=== PATIENT | female | born 1955 | race Caucasian/White ===

== ENCOUNTER → 2017-12-08 | Outpatient (CLI) | payer BC ==
[~2017-12-08] MED LIST: ALBU8.5H2 IH; AMOX-355 PO; ASP81TEC PO; BUDE6HFA IH; BUTA1CAP39 PO; C250T PO; CETI10TA20 PO; CHOL100011 PO; DIAZ5TAB49; EST45C; EST45C VG; FLAX340P PO; GENTAMICIN NASAL INH; HYDR-34; IPRA3AMP IH; LACT1CAP74 PO; LISI10TA PO; LISI10TA2 PO; LRT10T PO; LUTE10TA PO; LUTE20CA2 PO; MNTL10T PO; MOME13HF IH; MULT-608 PO; NAPR250T34; NF-PULMINH; NIA500ERT PO; NIACIN PO; PRAV20TA3 PO; PRAV80TA2 PO; PRD20T PO; TIOT18CA IH; VITA1TAB74 PO; [UNRECOGNIZED DRUG - OTHER] INH
--- NOTE | 2017-12-08 16:08 | Diagnostic Imaging Report ---
Indication: Lower respiratory infection PA and lateral chest Heart size and pulmonary vascular normal. Lungs are clear. There are no effusions or pneumothoraces. Impression: Negative chest Dictated by: Dictated on workstation # [id number]
== END ==
LOC: RAD 15:51
PROVIDERS: ATTEND Nurse Practitioner Family
DX: J22 Unspecified acute lower respiratory infection (principal)
CPT/HCPCS: 71046

== ENCOUNTER → 2018-05-02 | Outpatient (CLI) | payer BC ==
[~2018-05-02] MED LIST changes: -IPRA3AMP IH; +IPRA3AMP31 IH
--- NOTE | 2018-05-02 14:11 | Diagnostic Imaging Report ---
INDICATION: Routine screening. COMPARISON: 06/23/2016 and 05/20/2014. TECHNIQUE: 2D and 3D bilateral screening mammography was performed with CAD. FINDINGS: Scattered fibroglandular densities are identified bilaterally. The parenchymal pattern is stable. Benign calcifications are noted bilaterally. No mass or malignant appearing microcalcifications are seen. The axillae are unremarkable. IMPRESSION: No mammographic features suspicious for malignancy are identified. ACR BI-RADS Category 2: Benign findings. Result letter will be mailed to the patient. Note: At least 10% of breast cancer is not imaged by mammography. Dictated by: Dictated on workstation # [id number]
== END ==
LOC: RAD 10:07
PROVIDERS: ATTEND Nurse Practitioner Family
DX: Z12.31 Encounter for screening mammogram for malignant neoplasm of breast (principal)
CPT/HCPCS: 77067

== ENCOUNTER 2019-03-30 09:45 | Emergency (ER) | payer MEDICARE, BC ==
[~2019-03-30] VITALS: Ht 160 cm; Wt 75.8 kg
--- OUTSIDE RECORDS SUMMARY | 2019-03-30 09:57 | XMS REPORT | CCD ---
Author Author Leisa Kirkpatrick MD, [facility] Address [address] [place] [address] Phone Care Team Providers Care Technical System Analyst Name Role Phone PP Unavailable CCM Unavailable Summary Purpose Interface Exchange Insurance Providers Payer name Policy type / Coverage type Covered constitution party ID Effective Begin Date Effective End Date [facility] [id number] Unknown Family history Father Diagnosis Age At Onset Heart Attack Unknown genetic disease Unknown Skin cancer Unknown Hypertension Unknown Mother Diagnosis Age At Onset Stroke Unknown Daughter Diagnosis Age At Onset Asthma Unknown Arthritis Unknown Social History Social History Element Codes Description Effective Dates Marital status Unknown Lev 10/10/2017 Number of children Unknown 2 06/17/[address]: 078850421 Never smoker 06/17/2016 Alcohol history Unknown occasionally drinks alcohol 06/17/2016 Allergies, Adverse Reactions, Alerts Substance Reaction Codes Entered Date Inactivated Date Status ceclor RxNorm: 2176 06/17/2016 No Inactive Date Active CODEINE RxNorm: 2670 06/17/2016 No Inactive Date Active Past Medical History Illness Codes Condition Status Onset Date Resolved Date Cough ICD-9: 786.2 ICD-10: R05 Active 09/22/2016 Unknown Other acute sinusitis ICD- 9: 461.8 ICD-10: J01.80 Active 07/07/2016 Unknown Acute bronchitis due to other specified organisms ICD-9: 466.0 ICD-10: J20.8 Active 12/08/2017 Unknown Moderate persistent asthma with (acute) exacerbation ICD-9: 493.12 ICD-10: J45.41 Active 03/03/2017 Unknown Other allergic rhinitis ICD-9: 477.8 ICD-10: J30.89 Active 09/22/2016 Unknown Other chronic sinusitis ICD-9: 473.8 ICD-10: J32.8 Active 02/08/2019 Unknown Varicose veins of left lower extremity with pain ICD-9: 454.8 ICD-10: I83.812 Active 02/08/2019 Unknown Diarrhea, unspecified ICD- 9: 787.91 ICD-10: R19.7 Active 02/05/2019 Unknown Left lower quadrant pain ICD-9: 789.04 ICD-10: R10.32 Active 02/05/2019 Unknown Localized edema ICD-9: 782.3 ICD-10: R60.0 Active 01/23/2019 Unknown Tinea unguium ICD-9: 110.1 ICD-10: B35.1 Active 01/23/2019 Unknown Essential (primary) hypertension ICD-9: 401.1 ICD-10: I10 Active 04/09/2018 Unknown Mixed hyperlipidemia ICD- 9: 272.2 ICD-10: E78.2 Active 01/09/2019 Unknown Diverticulitis of large intestine without perforation or abscess with bleeding ICD-9: 562.13 ICD-10: K57.33 Active 05/04/2017 Unknown Other fatigue ICD-9: 780.79 ICD-10: R53.83 Active 04/09/2018 Unknown Zoster without complications ICD-9: 053.9 ICD-10: B02.9 Active 05/07/2018 Unknown Fever, unspecified ICD- 9: 780.60 ICD-10: R50.9 Active 04/20/2018 Unknown Cellulitis of left toe ICD-9: 681.10 ICD-10: L03.032 Active 04/09/2018 Unknown Encounter for screening mammogram for malignant neoplasm of breast ICD-9: V76.12 ICD-10: Z12.31 Active 04/09/2018 Unknown Mixed hyperlipidemia ICD- 9: 272.4 ICD-10: E78.2 Active 06/16/2016 Unknown Paresthesia of skin ICD- 9: 782.0 ICD-10: R20.2 Active 04/09/2018 Unknown Vitamin D deficiency, unspecified ICD-9: 268.9 ICD-10: E55.9 Active 04/09/2018 Unknown Gastro-esophageal reflux disease without esophagitis ICD-9: 530.81 ICD-10: K21.9 Active 12/05/2016 Unknown Hyperlipidemia Unknown Active 09/20/2017 Unknown Acute laryngopharyngitis ICD-9: 465.0 ICD-10: J06.0 Active 02/09/2017 Unknown Asthma Unknown Active 02/13/2017 Unknown Moderate persistent asthma, uncomplicated ICD-9: 493.90 ICD-10: J45.40 Active 09/22/2016 Unknown Other mucopurulent conjunctivitis, left eye ICD-9: 372.03 ICD-10: H10.022 Active 02/13/2017 Unknown Encounter for gynecological examination (general) (routine) without abnormal findings ICD-9: V72.31 ICD-10: Z01.419 Active 06/16/2016 Unknown Essential (primary) hypertension ICD-9: 401.9 ICD-10: I10 Active 06/16/2016 Unknown Problems Condition Codes Effective Dates Condition Status Cough ICD-9: 786.2 ICD-10: R05 09/22/2016 Active Other acute sinusitis ICD- 9: 461.8 ICD-10: J01.80 07/07/2016 Active Acute bronchitis due to other specified organisms ICD-9: 466.0 ICD-10: J20.8 12/08/2017 Active Moderate persistent asthma with (acute) exacerbation ICD-9: 493.12 ICD-10: J45.41 03/03/2017 Active Other allergic rhinitis ICD-9: 477.8 ICD-10: J30.89 09/22/2016 Active Other chronic sinusitis ICD-9: 473.8 ICD-10: J32.8 02/08/2019 Active Varicose veins of left lower extremity with pain ICD-9: 454.8 ICD-10: I83.812 02/08/2019 Active Diarrhea, unspecified ICD- 9: 787.91 ICD-10: R19.7 02/05/2019 Active Left lower quadrant pain ICD-9: 789.04 ICD-10: R10.32 02/05/2019 Active Localized edema ICD-9: 782.3 ICD-10: R60.0 01/23/2019 Active Tinea unguium ICD-9: 110.1 ICD-10: B35.1 01/23/2019 Active Essential (primary) hypertension ICD-9: 401.1 ICD-10: I10 04/09/2018 Active Mixed hyperlipidemia ICD- 9: 272.2 ICD-10: E78.2 01/09/2019 Active Diverticulitis of large intestine without perforation or abscess with bleeding ICD-9: 562.13 ICD-10: K57.33 05/04/2017 Active Other fatigue ICD-9: 780.79 ICD-10: R53.83 04/09/2018 Active Zoster without complications ICD-9: 053.9 ICD-10: B02.9 05/07/2018 Active Fever, unspecified ICD- 9: 780.60 ICD-10: R50.9 04/20/2018 Active Cellulitis of left toe ICD-9: 681.10 ICD-10: L03.032 04/09/2018 Active Encounter for screening mammogram for malignant neoplasm of breast ICD-9: V76.12 ICD-10: Z12.31 04/09/2018 Active Mixed hyperlipidemia ICD- 9: 272.4 ICD-10: E78.2 06/16/2016 Active Paresthesia of skin ICD- 9: 782.0 ICD-10: R20.2 04/09/2018 Active Vitamin D deficiency, unspecified ICD-9: 268.9 ICD-10: E55.9 04/09/2018 Active Gastro-esophageal reflux disease without esophagitis ICD-9: 530.81 ICD-10: K21.9 12/05/2016 Active Hyperlipidemia Unknown 09/20/2017 Active Acute laryngopharyngitis ICD-9: 465.0 ICD-10: J06.0 02/09/2017 Active Asthma Unknown 02/13/2017 Active Moderate persistent asthma, uncomplicated ICD-9: 493.90 ICD-10: J45.40 09/22/2016 Active Other mucopurulent conjunctivitis, left eye ICD-9: 372.03 ICD-10: H10.022 02/13/2017 Active Encounter for gynecological examination (general) (routine) without abnormal findings ICD-9: V72.31 ICD-10: Z01.419 06/16/2016 Active Essential (primary) hypertension ICD-9: 401.9 ICD-10: I10 06/16/2016 Active Medications Medication Codes Instructions Start Date Stop Date Status Fill Instructions doxycycline hyclate 100 mg tablet RxNorm: 0080254 1 Tablet(s) PO BID 03/21/2019 03/27/2019 Active prednisone 10 mg tablets in a dose pack RxNorm: 929038 1 Tablet(s) PO UD 03/21/2019 03/26/2019 Active albuterol sulfate 2.5 mg/3 mL (0.083 %) solution for nebulization RxNorm: 774616 USE 1 VIAL IN NEBULIZER EVERY 4 HOURS NEEDED 5 03/07/2019 03/16/2019 Inactive prednisone 10 mg tablet RxNorm: 326019 Tablet(s) PO 02/25/2019 03/20/2019 Inactive 40,40,40,20,20,20,10,10,10 Tessalon Perles 100 mg capsule RxNorm: 139818 2 Capsule(s) PO TID as needed cough 02/25/2019 03/01/2019 Inactive Bactrim DS 800 mg-160 mg tablet RxNorm: 504662 1 Tablet(s) PO BID 02/08/2019 02/17/2019 Inactive Flagyl 500 mg tablet RxNorm: 844122 1 Tablet(s) PO TID 02/05/2019 02/14/2019 Inactive clotrimazole 1 % topical cream RxNorm: 829002 1 Application TOP BID 01/23/2019 No Stop Date Active Tamiflu 75 mg capsule RxNorm: 812687 1 Capsule(s) PO daily 01/11/2019 01/20/2019 Inactive Tamiflu 75 mg capsule RxNorm: 795065 1 Capsule(s) PO daily 01/11/2019 01/10/2019 Inactive losartan 25 mg tablet RxNorm: 793340 1 Tablet(s) PO daily 12/24/2018 04/22/2019 Active losartan 25 mg tablet RxNorm: 233009 1 Tablet(s) PO daily 12/24/2018 12/23/2018 Inactive Zithromax Z-Maykel 250 mg tablet RxNorm: 229780 1 Tablet(s) PO UD 10/05/2018 10/09/2018 Inactive prednisone 20 mg tablet RxNorm: 061710 2 Tablet(s) PO daily 10/05/2018 10/09/2018 Inactive Zantac 150 mg tablet RxNorm: 292809 TAKE 1 TABLET BY MOUTH TWICE DAILY 08/22/2018 08/16/2019 Active Generic For:*ZANTAC 150 MG TABLET 08/22/2018 10:42:54 AM lisinopril 10 mg tablet RxNorm: 517686 TAKE 1 TABLET BY MOUTH DAILY 08/22/2018 12/24/2018 Inactive Generic For:ZESTRIL 10 MG TABLET 08/22/2018 10:43:05 AM prednisone 10 mg tablet RxNorm: 954170 Tablet(s) PO 07/24/2018 02/24/2019 Inactive 40,40,30,30,20,20,10,10,5mg every other day x 2 doses Zithromax Z-Maykel 250 mg tablet RxNorm: 279068 1 Tablet(s) PO UD 07/24/2018 10/04/2018 Inactive Protonix 20 mg tablet,delayed release RxNorm: 171578 1 Tablet(s) PO BID 05/23/2018 11/18/2018 Inactive acyclovir 400 mg tablet RxNorm: 361217 2 Tablet(s) PO QID 05/07/2018 05/16/2018 Inactive doxycycline hyclate 100 mg capsule RxNorm: 6480604 1 Capsule(s) PO BID 04/20/2018 04/29/2018 Inactive Bactrim DS 800 mg-160 mg tablet RxNorm: 982116 1 Tablet(s) PO BID 04/16/2018 04/18/2018 Inactive Bactrim DS 800 mg-160 mg tablet RxNorm: 064449 1 Tablet(s) PO BID 04/09/2018 04/15/2018 Inactive lisinopril 10 mg tablet RxNorm: 911935 TAKE 1 TABLET BY MOUTH DAILY 02/21/2018 08/19/2018 Inactive Generic For:ZESTRIL 10 MG TABLET 02/21/2018 11:39:12 AM prednisone 10 mg tablet RxNorm: 544753 Tablet(s) PO 60mg x 2 days, then 40mg x 2 days, then 20mg x 2 days, the 10mg x 2 days, then 5mg every other day x 2 doses 12/08/2017 03/20/2019 Inactive disp qty sufficient doxycycline hyclate 100 mg capsule RxNorm: 4790946 1 Capsule(s) PO BID 12/08/2017 12/17/2017 Inactive albuterol sulfate 2.5 mg/3 mL (0.083 %) solution for nebulization RxNorm: 377676 3 Milliliter(s) INH Q4-6H 12/06/2017 03/06/2019 Inactive Zithromax Z-Maykel 250 mg tablet RxNorm: 633735 1 Tablet(s) PO UD 12/01/2017 04/15/2018 Inactive prednisone 20 mg tablet RxNorm: 932766 Tablet(s) PO 40mg x 2 days, then 20mg x 2 days, then 10mg x 2 days 12/01/2017 03/20/2019 Inactive levocetirizine 5 mg tablet RxNorm: 499664 1 Tablet(s) PO daily 11/13/2017 05/11/2018 Inactive Protonix 20 mg tablet,delayed release RxNorm: 656583 1 Tablet(s) PO BID 11/13/2017 05/11/2018 Inactive Protonix 20 mg tablet,delayed release RxNorm: 633150 1 Tablet(s) PO BID 10/10/2017 11/08/2017 Inactive Tessalon Perles 100 mg capsule RxNorm: 577035 1-2 Capsule(s) PO TID as needed 10/10/2017 10/14/2017 Inactive prednisone 20 mg tablet RxNorm: 832692 Tablet(s) PO 40mg x 2 days, then 20mg x 2 days, then 10mg x 2 days 09/20/2017 11/30/2017 Inactive doxycycline hyclate 100 mg capsule RxNorm: 6796626 1 Capsule(s) PO BID 09/20/2017 09/26/2017 Inactive Zithromax Z-Maykel 250 mg tablet RxNorm: 541842 1 Tablet(s) PO UD 09/12/2017 10/09/2017 Inactive albuterol sulfate 2.5 mg/3 mL (0.083 %) solution for nebulization RxNorm: 081471 3 Milliliter(s) INH Q4-6H 09/12/2017 12/05/2017 Inactive prednisone 20 mg tablet RxNorm: 895300 2 Tablet(s) PO daily 09/12/2017 09/16/2017 Inactive lisinopril 10 mg tablet RxNorm: 821328 1 Tablet(s) PO daily 08/28/2017 02/20/2018 Inactive Zantac 150 mg tablet RxNorm: 926632 1 Tablet(s) PO BID 08/28/2017 08/21/2018 Inactive Cipro 500 mg tablet RxNorm: 587787 1 Tablet(s) PO BID 08/18/2017 08/26/2017 Inactive metronidazole 500 mg tablet RxNorm: 861797 1 Tablet(s) PO TID 08/18/2017 08/26/2017 Inactive prednisone 20 mg tablet RxNorm: 939764 2 Tablet(s) PO BID 06/12/2017 06/16/2017 Inactive Cipro 500 mg tablet RxNorm: 688107 1 Tablet(s) PO BID 05/04/2017 05/13/2017 Inactive metronidazole 500 mg tablet RxNorm: 860597 1 Tablet(s) PO TID 05/04/2017 05/13/2017 Inactive Zantac 150 mg tablet RxNorm: 766319 1 Tablet(s) PO BID 04/27/2017 08/24/2017 Inactive prednisone 20 mg tablet RxNorm: 521455 2 Tablet(s) PO BID start if getting worse 04/21/2017 04/25/2017 Inactive levocetirizine 5 mg tablet RxNorm: 276026 1 Tablet(s) PO daily 04/21/2017 05/20/2017 Inactive prednisone 20 mg tablet RxNorm: 037166 1 Tablet(s) PO BID Start with 1 pill daily and see how effective it is - if still not effective increase to twice a day as discussed 03/03/2017 03/07/2017 Inactive lisinopril 10 mg tablet RxNorm: 129333 1 Tablet(s) PO daily 03/01/2017 08/27/2017 Inactive ciprofloxacin 0.3 % eye drops RxNorm: 722650 2 Drop(s) OPH QID 02/13/2017 02/17/2017 Inactive Zithromax 250 mg tablet RxNorm: 302207 1 Tablet(s) PO daily 02/13/2017 02/15/2017 Inactive Zithromax Z-Maykel 250 mg tablet RxNorm: 414644 1 Tablet(s) PO UD 02/09/2017 02/08/2017 Inactive Zithromax Z-Maykel 250 mg tablet RxNorm: 516869 1 Tablet(s) PO UD 02/09/2017 09/11/2017 Inactive Premarin 0.625 mg/gram vaginal cream RxNorm: 814647 1 Application VAG BIW 12/30/2016 No Stop Date Active Zantac 150 mg tablet RxNorm: 690589 1 Tablet(s) PO BID 12/05/2016 04/03/2017 Inactive prednisone 20 mg tablet RxNorm: 347106 2 Tablet(s) PO daily 12/05/2016 12/09/2016 Inactive Zithromax Z-Maykel 250 mg tablet RxNorm: 858934 Tablet(s) PO UD 12/05/2016 02/08/2017 Inactive lisinopril 10 mg tablet RxNorm: 659115 1 Tablet(s) PO daily 10/31/2016 02/27/2017 Inactive Tessalon Perles 100 mg capsule RxNorm: 191886 2 Capsule(s) PO TID as needed dyspnea 09/23/2016 09/27/2016 Inactive prednisone 20 mg tablet RxNorm: 043743 2 Tablet(s) PO daily 09/23/2016 09/27/2016 Inactive Qvar 80 mcg/actuation Metered Aerosol oral inhaler RxNorm: 477862 1 INH BID started by her bilingual customer service specialist 08/02/2016 09/12/2016 Inactive Zithromax Z-Maykel 250 mg tablet RxNorm: 742335 Tablet(s) PO UD 07/08/2016 12/04/2016 Inactive Tessalon Perles 100 mg capsule RxNorm: 951436 2 Capsule(s) PO TID as needed dyspnea 07/08/2016 07/12/2016 Inactive prednisone 20 mg tablet RxNorm: 808002 1 Tablet(s) PO UD 07/08/2016 09/22/2016 Inactive Premarin 0.625 mg/gram vaginal cream RxNorm: 705394 1 Application VAG BIW 06/21/2016 12/29/2016 Inactive Dulera 200 mcg-5 mcg/actuation HFA aerosol inhaler RxNorm: 9891216 2 INH Q2H 06/17/2016 No Stop Date Active lisinopril 10 mg tablet RxNorm: 924402 1 Tablet(s) PO daily 06/17/2016 10/14/2016 Inactive olopatadine 0.1 % eye drops RxNorm: 4649270 Drop(s) OPH PRN No Start Date Active ProAir HFA 90 mcg/actuation aerosol inhaler RxNorm: 628388 2 Puff(s) INH PRN No Start Date Active Zyrtec 10 mg capsule RxNorm: 8729112 1 Capsule(s) PO daily No Start Date Active lutein 20 mg capsule RxNorm: 533049 1 Capsule(s) PO daily No Start Date Active [place] Oil 1,000 mg capsule RxNorm: 1 Capsule(s) PO daily No Start Date Active montelukast 10 mg tablet RxNorm: 498402 1 Tablet(s) PO daily No Start Date Active Vitamin D3 1,000 unit capsule RxNorm: 626148 Capsule(s) PO No Start Date Active B12 sublingual RxNorm: 95851 sublingual No Start Date Active pravastatin 20 mg tablet RxNorm: 803440 1 Tablet(s) PO daily No Start Date Active zinc picolinate 50 mg tablet RxNorm: 1 Tablet(s) PO daily No Start Date Active chromium picolinate 200 mcg capsule RxNorm: 028083 1 Capsule(s) PO daily No Start Date Active magnesium RxNorm: 1 PO BID No Start Date Active premarin 0.5% Vaginal cream RxNorm: 1 VAG daily No Start Date Active Xolair 150 mg subcutaneous solution RxNorm: 7770049 1 SQ monthly No Start Date Active folate #7-pc dha-pe [id number]-multivitamin #46 oral RxNorm: oral No Start Date Active Dulera 200 mcg-5 mcg/actuation HFA aerosol inhaler RxNorm: 7328655 2 INH Q4H No Start Date 06/16/2016 Inactive lisinopril 10 mg tablet RxNorm: 910016 1 Tablet(s) PO daily No Start Date 06/16/2016 Inactive prednisone RxNorm: 8640 miscellaneous No Start Date 03/20/2019 Inactive Medication Administered No Medication Administered data Immunizations Vaccine Codes Date Status Influenza CVX: 141 08/20/2018 completed Assessments Condition Codes Effective Dates Other acute sinusitis ICD-10: J01.80 ICD-9: 461.8 03/21/2019 Cough ICD-10: R05 ICD-9: 786.2 03/21/2019 Acute bronchitis due to other specified organisms ICD-10: J20.8 ICD-9: 466.0 02/25/2019 Moderate persistent asthma with (acute) exacerbation ICD-10: J45.41 ICD-9: 493.12 02/25/2019 Other allergic rhinitis ICD-10: J30.89 ICD-9: 477.8 02/08/2019 Other chronic sinusitis ICD-10: J32.8 ICD-9: 473.8 02/08/2019 Varicose veins of left lower extremity with pain ICD-10: I83.812 ICD-9: 454.8 02/08/2019 Diarrhea, unspecified ICD-10: R19.7 ICD-9: 787.91 02/05/2019 Left lower quadrant pain ICD-10: R10.32 ICD-9: 789.04 02/05/2019 Tinea unguium ICD-10: B35.1 ICD-9: 110.1 01/23/2019 Localized edema ICD-10: R60.0 ICD-9: 782.3 01/23/2019 Essential (primary) hypertension ICD-10: I10 ICD-9: 401.1 01/09/2019 Mixed hyperlipidemia ICD-10: E78.2 ICD-9: 272.2 01/09/2019 Diverticulitis of large intestine without perforation or abscess with bleeding ICD-10: K57.33 ICD-9: 562.13 08/20/2018 Zoster without complications ICD-10: B02.9 ICD-9: 053.9 05/07/2018 Fever presenting with conditions classified elsewhere ICD-10: R50.81 ICD-9: 780.61 04/20/2018 Vitamin D deficiency, unspecified ICD-10: E55.9 ICD-9: 268.9 04/09/2018 Paresthesia of skin ICD-10: R20.2 ICD-9: 782.0 04/09/2018 Other fatigue ICD-10: R53.83 ICD-9: 780.79 04/09/2018 Mixed hyperlipidemia ICD-10: E78.2 ICD-9: 272.4 04/09/2018 Cellulitis of left toe ICD-10: L03.032 ICD-9: 681.10 04/09/2018 Encounter for screening mammogram for malignant neoplasm of breast ICD-10: Z12.31 ICD-9: V76.12 04/09/2018 Gastro-esophageal reflux disease without esophagitis ICD-10: K21.9 ICD-9: 530.81 10/10/2017 Acute laryngopharyngitis ICD-10: J06.0 ICD-9: 465.0 09/12/2017 Other mucopurulent conjunctivitis, left eye ICD-10: H10.022 ICD-9: 372.03 02/13/2017 Moderate persistent asthma, uncomplicated ICD-10: J45.40 ICD-9: 493.90 02/13/2017 Essential (primary) hypertension ICD-10: I10 ICD-9: 401.9 06/17/2016 Encounter for gynecological examination (general) (routine) without abnormal findings ICD-10: Z01.419 ICD-9: V72.31 06/17/2016 Reason For Visit Reason For Visit Effective Dates Notes cough 03/21/2019 cough 02/25/2019 sinus congestion 02/08/2019 diarrhea 02/05/2019 edema 01/23/2019 hypertension 01/09/2019 cough 10/05/2018 abdominal pain 08/20/2018 sinus congestion 07/24/2018 rash 05/07/2018 fever 04/20/2018 cellulitis 04/09/2018 cough 12/08/2017 sinus congestion 12/01/2017 cough 10/10/2017 chest congestion 09/20/2017 cough 09/12/2017 abdominal pain 08/18/2017 cough 06/12/2017 abdominal pain 05/04/2017 cough 04/21/2017 cough 03/03/2017 cough 02/13/2017 sinus congestion 02/09/2017 cough 12/14/2016 sinus congestion 12/05/2016 cough 09/23/2016 nasal allergies 09/14/2016 sinus congestion 07/08/2016 well woman exam (40-65 years) 06/17/2016 Results Observation Observation Code Item Item Code Result Date C A/B FLU [id number] Influenza A Scr TNP:Duplicate Order 07/25/2018 C A/B FLU [id number] Influenza B Scr TNP:Duplicate Order 07/25/2018 C A/B FLU [id number] Influenza Intrp B AG:PRID:PT:NOSE:NOM:IF TNP:Duplicate Order 07/25/2018 C A/B FLU [id number] IC OK? TNP:Duplicate Order 07/25/2018 C RAP A SC [id number] Strep A TNP:Lab Request 02/09/2017 C RAP A SC [id number] IC OK? TNP:Lab Request 02/09/2017 Review of Systems System Result Effective Dates Constitutional recent illness 03/21/2019 Constitutional No chills 03/21/2019 Constitutional No diaphoresis 03/21/2019 Constitutional fever 03/21/2019 Eyes No blindness 03/21/2019 Ears/Nose/Throat/Neck nasal allergies 03/21/2019 Ears/Nose/Throat/Neck nasal discharge 03/21/2019 Ears/Nose/Throat/Neck postnasal drip 03/21/2019 Ears/Nose/Throat/Neck sinus congestion 03/21/2019 Ears/Nose/Throat/Neck No sore throat 03/21/2019 Cardiovascular No chest pain/pressure 03/21/2019 Cardiovascular No dyspnea 03/21/2019 Respiratory No chest congestion 03/21/2019 Respiratory cough 03/21/2019 Respiratory No dyspnea 03/21/2019 Gastrointestinal No abdominal pain 03/21/2019 Gastrointestinal No constipation 03/21/2019 Gastrointestinal No diarrhea 03/21/2019 Gastrointestinal No nausea 03/21/2019 Gastrointestinal No vomiting 03/21/2019 Dermatologic No rash 03/21/2019 Neurologic No alteration of consciousness 03/21/2019 Neurologic No mental status change 03/21/2019 Constitutional No anorexia 03/21/2019 Constitutional No night sweats 03/21/2019 Constitutional recent illness 02/25/2019 Constitutional chills 02/25/2019 Constitutional fever 02/25/2019 Eyes No eye erythema 02/25/2019 Ears/Nose/Throat/Neck nasal allergies 02/25/2019 Ears/Nose/Throat/Neck nasal discharge 02/25/2019 Ears/Nose/Throat/Neck postnasal drip 02/25/2019 Ears/Nose/Throat/Neck sinus congestion 02/25/2019 Cardiovascular No chest pain/pressure 02/25/2019 Respiratory productive sputum 02/25/2019 Respiratory cough 02/25/2019 Respiratory wheezing 02/25/2019 Gastrointestinal No abdominal pain 02/25/2019 Musculoskeletal No joint complaint 02/25/2019 Dermatologic No rash 02/25/2019 Neurologic No alteration of consciousness 02/25/2019 Neurologic No mental status change 02/25/2019 Respiratory asthma 02/25/2019 Constitutional No recent illness 02/08/2019 Constitutional No chills 02/08/2019 Constitutional No diaphoresis 02/08/2019 Constitutional No fever 02/08/2019 Eyes No eye erythema 02/08/2019 Ears/Nose/Throat/Neck No nasal discharge 02/08/2019 Cardiovascular No chest pain/pressure 02/08/2019 Respiratory No cough 02/08/2019 Neurologic No alteration of consciousness 02/08/2019 Neurologic No mental status change 02/08/2019 Dermatologic erythema 02/08/2019 Constitutional recent illness 02/05/2019 Constitutional No chills 02/05/2019 Constitutional No diaphoresis 02/05/2019 Constitutional No fever 02/05/2019 Eyes No eye erythema 02/05/2019 Ears/Nose/Throat/Neck No nasal discharge 02/05/2019 Cardiovascular No chest pain/pressure 02/05/2019 Cardiovascular No dyspnea 02/05/2019 Respiratory No chest congestion 02/05/2019 Respiratory No cough 02/05/2019 Gastrointestinal abdominal pain 02/05/2019 Gastrointestinal No constipation 02/05/2019 Gastrointestinal diarrhea 02/05/2019 Gastrointestinal No hematochezia 02/05/2019 Gastrointestinal No melena 02/05/2019 Gastrointestinal No nausea 02/05/2019 Gastrointestinal No vomiting 02/05/2019 Neurologic No alteration of consciousness 02/05/2019 Neurologic No mental status change 02/05/2019 Constitutional No recent illness 01/23/2019 Constitutional No chills 01/23/2019 Constitutional No diaphoresis 01/23/2019 Constitutional No fever 01/23/2019 Eyes No eye erythema 01/23/2019 Ears/Nose/Throat/Neck No nasal discharge 01/23/2019 Ears/Nose/Throat/Neck nasal allergies 01/23/2019 Cardiovascular No dyspnea 01/23/2019 Cardiovascular No chest pain/pressure 01/23/2019 Cardiovascular No palpitations 01/23/2019 Gastrointestinal No abdominal pain 01/23/2019 Respiratory asthma 01/23/2019 Respiratory No chest congestion 01/23/2019 Neurologic No alteration of consciousness 01/23/2019 Neurologic No mental status change 01/23/2019 Dermatologic onychodystrophy 01/23/2019 Constitutional No recent illness 01/09/2019 Constitutional No chills 01/09/2019 Constitutional No diaphoresis 01/09/2019 Constitutional fatigue 01/09/2019 Constitutional No fever 01/09/2019 Eyes No eye erythema 01/09/2019 Ears/Nose/Throat/Neck nasal discharge 01/09/2019 Ears/Nose/Throat/Neck nasal allergies 01/09/2019 Ears/Nose/Throat/Neck No sinus congestion 01/09/2019 Cardiovascular No chest pain/pressure 01/09/2019 Cardiovascular No dyspnea 01/09/2019 Respiratory No cough 01/09/2019 Respiratory No chest congestion 01/09/2019 Gastrointestinal No abdominal pain 01/09/2019 Neurologic No alteration of consciousness 01/09/2019 Neurologic No mental status change 01/09/2019 Constitutional recent illness 10/05/2018 Constitutional No chills 10/05/2018 Constitutional No diaphoresis 10/05/2018 Constitutional No fever 10/05/2018 Eyes No blindness 10/05/2018 Ears/Nose/Throat/Neck nasal allergies 10/05/2018 Ears/Nose/Throat/Neck nasal discharge 10/05/2018 Ears/Nose/Throat/Neck postnasal drip 10/05/2018 Ears/Nose/Throat/Neck sinus congestion 10/05/2018 Ears/Nose/Throat/Neck No sore throat 10/05/2018 Cardiovascular No chest pain/pressure 10/05/2018 Cardiovascular No dyspnea 10/05/2018 Respiratory asthma 10/05/2018 Respiratory No chest congestion 10/05/2018 Respiratory cough 10/05/2018 Respiratory No dyspnea 10/05/2018 Gastrointestinal No abdominal pain 10/05/2018 Gastrointestinal No constipation 10/05/2018 Gastrointestinal No diarrhea 10/05/2018 Gastrointestinal No nausea 10/05/2018 Gastrointestinal No vomiting 10/05/2018 Dermatologic No rash 10/05/2018 Neurologic No alteration of consciousness 10/05/2018 Neurologic No mental status change 10/05/2018 Genitourinary/Nephrology No dysuria 10/05/2018 Constitutional No chills 08/20/2018 Constitutional No diaphoresis 08/20/2018 Constitutional fatigue 08/20/2018 Constitutional No fever 08/20/2018 Eyes No eye erythema 08/20/2018 Ears/Nose/Throat/Neck nasal allergies 08/20/2018 Ears/Nose/Throat/Neck No nasal discharge 08/20/2018 Cardiovascular No chest pain/pressure 08/20/2018 Cardiovascular No dyspnea 08/20/2018 Respiratory asthma 08/20/2018 Respiratory No chest congestion 08/20/2018 Respiratory No cough 08/20/2018 Gastrointestinal abdominal pain 08/20/2018 Gastrointestinal diarrhea 08/20/2018 Gastrointestinal No hematochezia 08/20/2018 Gastrointestinal No melena 08/20/2018 Gastrointestinal No nausea 08/20/2018 Gastrointestinal No vomiting 08/20/2018 Dermatologic No rash 08/20/2018 Neurologic No alteration of consciousness 08/20/2018 Neurologic No mental status change 08/20/2018 Gastrointestinal No constipation 08/20/2018 Constitutional No recent illness 08/20/2018 Constitutional recent illness 07/24/2018 Constitutional No chills 07/24/2018 Constitutional No diaphoresis 07/24/2018 Constitutional No fever 07/24/2018 Eyes No eye erythema 07/24/2018 Ears/Nose/Throat/Neck nasal allergies 07/24/2018 Ears/Nose/Throat/Neck nasal discharge 07/24/2018 Ears/Nose/Throat/Neck postnasal drip 07/24/2018 Ears/Nose/Throat/Neck sinus congestion 07/24/2018 Ears/Nose/Throat/Neck No sore throat 07/24/2018 Cardiovascular No chest pain/pressure 07/24/2018 Cardiovascular No dyspnea 07/24/2018 Respiratory No chest congestion 07/24/2018 Respiratory cough 07/24/2018 Respiratory No dyspnea 07/24/2018 Gastrointestinal No abdominal pain 07/24/2018 Gastrointestinal No constipation 07/24/2018 Gastrointestinal No diarrhea 07/24/2018 Gastrointestinal No nausea 07/24/2018 Gastrointestinal No vomiting 07/24/2018 Dermatologic No rash 07/24/2018 Neurologic No alteration of consciousness 07/24/2018 Neurologic No mental status change 07/24/2018 Constitutional No recent illness 05/07/2018 Constitutional No anorexia 05/07/2018 Constitutional No night sweats 05/07/2018 Constitutional No chills 05/07/2018 Constitutional No diaphoresis 05/07/2018 Constitutional No fatigue 05/07/2018 Constitutional No fever 05/07/2018 Constitutional No insomnia 05/07/2018 Constitutional No malaise 05/07/2018 Constitutional No weight loss 05/07/2018 Constitutional No obesity 05/07/2018 Dermatologic rash 05/07/2018 Constitutional recent illness 04/20/2018 Constitutional No chills 04/20/2018 Constitutional No diaphoresis 04/20/2018 Constitutional fever 04/20/2018 Constitutional fatigue 04/20/2018 Constitutional malaise 04/20/2018 Eyes No eye erythema 04/20/2018 Ears/Nose/Throat/Neck nasal discharge 04/20/2018 Ears/Nose/Throat/Neck nasal allergies 04/20/2018 Ears/Nose/Throat/Neck postnasal drip 04/20/2018 Ears/Nose/Throat/Neck No sore throat 04/20/2018 Cardiovascular No chest pain/pressure 04/20/2018 Respiratory cough 04/20/2018 Respiratory No chest congestion 04/20/2018 Respiratory No dyspnea 04/20/2018 Respiratory asthma 04/20/2018 Respiratory No productive sputum 04/20/2018 Gastrointestinal No abdominal pain 04/20/2018 Gastrointestinal No constipation 04/20/2018 Gastrointestinal diarrhea 04/20/2018 Gastrointestinal No vomiting 04/20/2018 Gastrointestinal nausea 04/20/2018 Gastrointestinal No melena 04/20/2018 Gastrointestinal No hematochezia 04/20/2018 Dermatologic No rash 04/20/2018 Neurologic No alteration of consciousness 04/20/2018 Neurologic No mental status change 04/20/2018 Constitutional No recent illness 04/09/2018 Constitutional No chills 04/09/2018 Constitutional No diaphoresis 04/09/2018 Constitutional No fever 04/09/2018 Eyes No eye erythema 04/09/2018 Ears/Nose/Throat/Neck No nasal discharge 04/09/2018 Ears/Nose/Throat/Neck nasal allergies 04/09/2018 Respiratory asthma 04/09/2018 Respiratory cough 04/09/2018 Respiratory No chest congestion 04/09/2018 Respiratory No dyspnea 04/09/2018 Dermatologic erythema 04/09/2018 Neurologic No alteration of consciousness 04/09/2018 Neurologic No mental status change 04/09/2018 Neurologic paresthesia 04/09/2018 Constitutional recent illness 12/08/2017 Constitutional No chills 12/08/2017 Constitutional No diaphoresis 12/08/2017 Constitutional No fever 12/08/2017 Eyes No eye erythema 12/08/2017 Ears/Nose/Throat/Neck nasal allergies 12/08/2017 Ears/Nose/Throat/Neck nasal discharge 12/08/2017 Ears/Nose/Throat/Neck postnasal drip 12/08/2017 Ears/Nose/Throat/Neck sinus congestion 12/08/2017 Ears/Nose/Throat/Neck No sore throat 12/08/2017 Cardiovascular No chest pain/pressure 12/08/2017 Cardiovascular No dyspnea 12/08/2017 Respiratory asthma 12/08/2017 Respiratory chest congestion 12/08/2017 Respiratory cough 12/08/2017 Respiratory No dyspnea 12/08/2017 Gastrointestinal No abdominal pain 12/08/2017 Gastrointestinal No constipation 12/08/2017 Gastrointestinal No diarrhea 12/08/2017 Gastrointestinal No nausea 12/08/2017 Gastrointestinal No vomiting 12/08/2017 Dermatologic No rash 12/08/2017 Neurologic No alteration of consciousness 12/08/2017 Neurologic No mental status change 12/08/2017 Respiratory wheezing 12/08/2017 Constitutional recent illness 12/01/2017 Constitutional No chills 12/01/2017 Constitutional No diaphoresis 12/01/2017 Constitutional No fever 12/01/2017 Eyes No eye erythema 12/01/2017 Ears/Nose/Throat/Neck nasal allergies 12/01/2017 Ears/Nose/Throat/Neck nasal discharge 12/01/2017 Ears/Nose/Throat/Neck postnasal drip 12/01/2017 Ears/Nose/Throat/Neck sinus congestion 12/01/2017 Ears/Nose/Throat/Neck No sore throat 12/01/2017 Cardiovascular No chest pain/pressure 12/01/2017 Cardiovascular No dyspnea 12/01/2017 Respiratory No chest congestion 12/01/2017 Respiratory cough 12/01/2017 Respiratory No dyspnea 12/01/2017 Gastrointestinal No abdominal pain 12/01/2017 Gastrointestinal No constipation 12/01/2017 Gastrointestinal No diarrhea 12/01/2017 Gastrointestinal No nausea 12/01/2017 Gastrointestinal No vomiting 12/01/2017 Dermatologic No rash 12/01/2017 Neurologic No alteration of consciousness 12/01/2017 Neurologic No mental status change 12/01/2017 Respiratory asthma 12/01/2017 Constitutional recent illness 10/10/2017 Constitutional No chills 10/10/2017 Constitutional No diaphoresis 10/10/2017 Constitutional fever 10/10/2017 Eyes No eye erythema 10/10/2017 Ears/Nose/Throat/Neck nasal allergies 10/10/2017 Ears/Nose/Throat/Neck nasal discharge 10/10/2017 Ears/Nose/Throat/Neck hoarseness 10/10/2017 Ears/Nose/Throat/Neck postnasal drip 10/10/2017 Ears/Nose/Throat/Neck No sinus congestion 10/10/2017 Cardiovascular No chest pain/pressure 10/10/2017 Respiratory asthma 10/10/2017 Respiratory cough 10/10/2017 Respiratory No chest congestion 10/10/2017 Respiratory dyspnea on exertion 10/10/2017 Respiratory No dyspnea 10/10/2017 Gastrointestinal No abdominal pain 10/10/2017 Neurologic No alteration of consciousness 10/10/2017 Neurologic No mental status change 10/10/2017 Constitutional recent illness 09/20/2017 Constitutional No chills 09/20/2017 Constitutional No diaphoresis 09/20/2017 Constitutional No fever 09/20/2017 Eyes No eye erythema 09/20/2017 Ears/Nose/Throat/Neck nasal allergies 09/20/2017 Ears/Nose/Throat/Neck nasal discharge 09/20/2017 Ears/Nose/Throat/Neck postnasal drip 09/20/2017 Cardiovascular No chest pain/pressure 09/20/2017 Cardiovascular No dyspnea 09/20/2017 Respiratory asthma 09/20/2017 Respiratory chest congestion 09/20/2017 Respiratory cough 09/20/2017 Respiratory dyspnea on exertion 09/20/2017 Respiratory No dyspnea 09/20/2017 Gastrointestinal No abdominal pain 09/20/2017 Musculoskeletal No joint complaint 09/20/2017 Dermatologic No rash 09/20/2017 Neurologic No alteration of consciousness 09/20/2017 Neurologic No mental status change 09/20/2017 Ears/Nose/Throat/Neck No sinus congestion 09/20/2017 Ears/Nose/Throat/Neck No sore throat 09/20/2017 Respiratory productive sputum 09/20/2017 Constitutional recent illness 09/12/2017 Constitutional No chills 09/12/2017 Constitutional No diaphoresis 09/12/2017 Constitutional No fever 09/12/2017 Eyes No eye erythema 09/12/2017 Ears/Nose/Throat/Neck nasal allergies 09/12/2017 Ears/Nose/Throat/Neck nasal discharge 09/12/2017 Ears/Nose/Throat/Neck postnasal drip 09/12/2017 Ears/Nose/Throat/Neck sinus congestion 09/12/2017 Ears/Nose/Throat/Neck sore throat 09/12/2017 Cardiovascular No chest pain/pressure 09/12/2017 Respiratory No chest congestion 09/12/2017 Respiratory cough 09/12/2017 Respiratory No dyspnea 09/12/2017 Gastrointestinal No constipation 09/12/2017 Gastrointestinal No diarrhea 09/12/2017 Gastrointestinal No nausea 09/12/2017 Gastrointestinal No vomiting 09/12/2017 Dermatologic No rash 09/12/2017 Neurologic No alteration of consciousness 09/12/2017 Neurologic No mental status change 09/12/2017 Constitutional fatigue 09/12/2017 Ears/Nose/Throat/Neck otalgia 09/12/2017 Respiratory asthma 09/12/2017 Constitutional recent illness 08/18/2017 Constitutional No chills 08/18/2017 Constitutional No diaphoresis 08/18/2017 Constitutional fatigue 08/18/2017 Constitutional No fever 08/18/2017 Eyes No eye erythema 08/18/2017 Ears/Nose/Throat/Neck No nasal discharge 08/18/2017 Cardiovascular No chest pain/pressure 08/18/2017 Cardiovascular No dyspnea 08/18/2017 Respiratory No chest congestion 08/18/2017 Respiratory No cough 08/18/2017 Gastrointestinal abdominal pain 08/18/2017 Gastrointestinal constipation 08/18/2017 Gastrointestinal No diarrhea 08/18/2017 Gastrointestinal No nausea 08/18/2017 Gastrointestinal No vomiting 08/18/2017 Dermatologic No rash 08/18/2017 Neurologic No alteration of consciousness 08/18/2017 Neurologic No mental status change 08/18/2017 Ears/Nose/Throat/Neck nasal allergies 08/18/2017 Respiratory asthma 08/18/2017 Gastrointestinal No melena 08/18/2017 Gastrointestinal No hematochezia 08/18/2017 Constitutional recent illness 06/12/2017 Constitutional No chills 06/12/2017 Constitutional No diaphoresis 06/12/2017 Constitutional No fever 06/12/2017 Eyes No eye erythema 06/12/2017 Ears/Nose/Throat/Neck nasal allergies 06/12/2017 Ears/Nose/Throat/Neck nasal discharge 06/12/2017 Ears/Nose/Throat/Neck postnasal drip 06/12/2017 Cardiovascular No chest pain/pressure 06/12/2017 Cardiovascular No dyspnea 06/12/2017 Respiratory asthma 06/12/2017 Respiratory No chest congestion 06/12/2017 Respiratory cough 06/12/2017 Respiratory dyspnea on exertion 06/12/2017 Respiratory No dyspnea 06/12/2017 Gastrointestinal No abdominal pain 06/12/2017 Musculoskeletal No joint complaint 06/12/2017 Dermatologic No rash 06/12/2017 Neurologic No alteration of consciousness 06/12/2017 Neurologic No mental status change 06/12/2017 Constitutional recent illness 05/04/2017 Constitutional No chills 05/04/2017 Constitutional No diaphoresis 05/04/2017 Constitutional No fever 05/04/2017 Constitutional fatigue 05/04/2017 Eyes No eye erythema 05/04/2017 Ears/Nose/Throat/Neck No nasal discharge 05/04/2017 Cardiovascular No chest pain/pressure 05/04/2017 Cardiovascular No dyspnea 05/04/2017 Respiratory No cough 05/04/2017 Respiratory No chest congestion 05/04/2017 Gastrointestinal abdominal pain 05/04/2017 Gastrointestinal No constipation 05/04/2017 Gastrointestinal No diarrhea 05/04/2017 Gastrointestinal No nausea 05/04/2017 Gastrointestinal No vomiting 05/04/2017 Dermatologic No rash 05/04/2017 Neurologic No alteration of consciousness 05/04/2017 Neurologic No mental status change 05/04/2017 Constitutional recent illness 04/21/2017 Constitutional No chills 04/21/2017 Constitutional No diaphoresis 04/21/2017 Constitutional No fever 04/21/2017 Eyes No eye erythema 04/21/2017 Ears/Nose/Throat/Neck nasal allergies 04/21/2017 Ears/Nose/Throat/Neck nasal discharge 04/21/2017 Ears/Nose/Throat/Neck postnasal drip 04/21/2017 Cardiovascular No chest pain/pressure 04/21/2017 Cardiovascular No dyspnea 04/21/2017 Respiratory asthma 04/21/2017 Respiratory cough 04/21/2017 Respiratory dyspnea on exertion 04/21/2017 Respiratory No dyspnea 04/21/2017 Gastrointestinal No abdominal pain 04/21/2017 Musculoskeletal No joint complaint 04/21/2017 Dermatologic No rash 04/21/2017 Neurologic No alteration of consciousness 04/21/2017 Neurologic No mental status change 04/21/2017 Ears/Nose/Throat/Neck sinus congestion 04/21/2017 Respiratory No chest congestion 04/21/2017 Constitutional recent illness 03/03/2017 Constitutional No chills 03/03/2017 Constitutional No diaphoresis 03/03/2017 Constitutional No fever 03/03/2017 Eyes No eye erythema 03/03/2017 Ears/Nose/Throat/Neck nasal allergies 03/03/2017 Ears/Nose/Throat/Neck nasal discharge 03/03/2017 Ears/Nose/Throat/Neck postnasal drip 03/03/2017 Ears/Nose/Throat/Neck sinus congestion 03/03/2017 Cardiovascular No chest pain/pressure 03/03/2017 Cardiovascular No dyspnea 03/03/2017 Respiratory asthma 03/03/2017 Respiratory cough 03/03/2017 Respiratory chest congestion 03/03/2017 Respiratory No dyspnea 03/03/2017 Respiratory dyspnea on exertion 03/03/2017 Gastrointestinal No abdominal pain 03/03/2017 Musculoskeletal No joint complaint 03/03/2017 Dermatologic No rash 03/03/2017 Neurologic No alteration of consciousness 03/03/2017 Neurologic No mental status change 03/03/2017 Constitutional No recent illness 02/13/2017 Constitutional No fever 02/13/2017 Ears/Nose/Throat/Neck nasal allergies 02/13/2017 Ears/Nose/Throat/Neck nasal discharge 02/13/2017 Ears/Nose/Throat/Neck postnasal drip 02/13/2017 Cardiovascular No chest pain/pressure 02/13/2017 Respiratory cough 02/13/2017 Respiratory asthma 02/13/2017 Neurologic No alteration of consciousness 02/13/2017 Neurologic No mental status change 02/13/2017 Eyes eye erythema 02/13/2017 Ears/Nose/Throat/Neck sinus congestion 02/13/2017 Constitutional recent illness 02/09/2017 Constitutional No chills 02/09/2017 Constitutional No diaphoresis 02/09/2017 Constitutional No fever 02/09/2017 Eyes No eye erythema 02/09/2017 Ears/Nose/Throat/Neck nasal allergies 02/09/2017 Ears/Nose/Throat/Neck nasal discharge 02/09/2017 Ears/Nose/Throat/Neck postnasal drip 02/09/2017 Ears/Nose/Throat/Neck sinus congestion 02/09/2017 Ears/Nose/Throat/Neck sore throat 02/09/2017 Cardiovascular No chest pain/pressure 02/09/2017 Cardiovascular No dyspnea 02/09/2017 Respiratory cough 02/09/2017 Respiratory No dyspnea 02/09/2017 Neurologic No alteration of consciousness 02/09/2017 Neurologic No mental status change 02/09/2017 Respiratory asthma 02/09/2017 Constitutional recent illness 12/14/2016 Constitutional No chills 12/14/2016 Constitutional No diaphoresis 12/14/2016 Constitutional No fever 12/14/2016 Eyes No eye erythema 12/14/2016 Ears/Nose/Throat/Neck nasal allergies 12/14/2016 Ears/Nose/Throat/Neck nasal discharge 12/14/2016 Ears/Nose/Throat/Neck postnasal drip 12/14/2016 Ears/Nose/Throat/Neck No sinus congestion 12/14/2016 Cardiovascular No chest pain/pressure 12/14/2016 Respiratory cough 12/14/2016 Respiratory chest congestion 12/14/2016 Respiratory No dyspnea 12/14/2016 Neurologic No alteration of consciousness 12/14/2016 Neurologic No mental status change 12/14/2016 Constitutional recent illness 12/05/2016 Constitutional chills 12/05/2016 Constitutional fatigue 12/05/2016 Constitutional fever 12/05/2016 Eyes No eye erythema 12/05/2016 Ears/Nose/Throat/Neck nasal allergies 12/05/2016 Ears/Nose/Throat/Neck nasal discharge 12/05/2016 Ears/Nose/Throat/Neck postnasal drip 12/05/2016 Cardiovascular No chest pain/pressure 12/05/2016 Respiratory asthma 12/05/2016 Respiratory productive sputum 12/05/2016 Respiratory cough 12/05/2016 Gastrointestinal No abdominal pain 12/05/2016 Dermatologic No rash 12/05/2016 Neurologic No alteration of consciousness 12/05/2016 Neurologic No mental status change 12/05/2016 Ears/Nose/Throat/Neck sinus congestion 12/05/2016 Ears/Nose/Throat/Neck sore throat 12/05/2016 Constitutional No recent illness 09/23/2016 Constitutional No chills 09/23/2016 Constitutional No fever 09/23/2016 Eyes No eye erythema 09/23/2016 Ears/Nose/Throat/Neck nasal allergies 09/23/2016 Cardiovascular No chest pain/pressure 09/23/2016 Respiratory asthma 09/23/2016 Respiratory cough 09/23/2016 Gastrointestinal No abdominal pain 09/23/2016 Dermatologic No rash 09/23/2016 Neurologic No alteration of consciousness 09/23/2016 Neurologic No mental status change 09/23/2016 Constitutional fatigue 09/23/2016 Ears/Nose/Throat/Neck postnasal drip 09/23/2016 Ears/Nose/Throat/Neck nasal discharge 09/23/2016 Respiratory productive sputum 09/23/2016 Constitutional No recent illness 09/14/2016 Constitutional No chills 09/14/2016 Constitutional No fever 09/14/2016 Eyes No eye erythema 09/14/2016 Ears/Nose/Throat/Neck nasal allergies 09/14/2016 Ears/Nose/Throat/Neck No sinus congestion 09/14/2016 Cardiovascular No chest pain/pressure 09/14/2016 Respiratory No cough 09/14/2016 Respiratory No chest congestion 09/14/2016 Respiratory asthma 09/14/2016 Gastrointestinal No abdominal pain 09/14/2016 Dermatologic No rash 09/14/2016 Neurologic No alteration of consciousness 09/14/2016 Neurologic No mental status change 09/14/2016 Constitutional recent illness 07/08/2016 Constitutional No chills 07/08/2016 Constitutional No diaphoresis 07/08/2016 Constitutional No fever 07/08/2016 Eyes No eye erythema 07/08/2016 Ears/Nose/Throat/Neck nasal allergies 07/08/2016 Ears/Nose/Throat/Neck nasal discharge 07/08/2016 Cardiovascular No chest pain/pressure 07/08/2016 Respiratory cough 07/08/2016 Respiratory No dyspnea 07/08/2016 Gastrointestinal No abdominal pain 07/08/2016 Musculoskeletal No joint complaint 07/08/2016 Dermatologic No rash 07/08/2016 Neurologic No alteration of consciousness 07/08/2016 Neurologic No mental status change 07/08/2016 Ears/Nose/Throat/Neck sinus congestion 07/08/2016 Respiratory asthma 07/08/2016 Gastrointestinal No vomiting 07/08/2016 Gastrointestinal No nausea 07/08/2016 Gastrointestinal No diarrhea 07/08/2016 Gastrointestinal No constipation 07/08/2016 Constitutional No recent illness 06/17/2016 Constitutional No chills 06/17/2016 Constitutional No diaphoresis 06/17/2016 Constitutional No fever 06/17/2016 Constitutional No malaise 06/17/2016 Eyes No eye erythema 06/17/2016 Ears/Nose/Throat/Neck No nasal allergies 06/17/2016 Ears/Nose/Throat/Neck No nasal discharge 06/17/2016 Cardiovascular No chest pain/pressure 06/17/2016 Cardiovascular No dyspnea 06/17/2016 Cardiovascular No edema 06/17/2016 Respiratory No chest congestion 06/17/2016 Respiratory No cough 06/17/2016 Respiratory No dyspnea 06/17/2016 Gastrointestinal No abdominal pain 06/17/2016 Gastrointestinal No vomiting 06/17/2016 Gastrointestinal No nausea 06/17/2016 Genitourinary/Nephrology No breast complaint 06/17/2016 Genitourinary/Nephrology No dysuria 06/17/2016 Musculoskeletal No joint complaint 06/17/2016 Dermatologic No rash 06/17/2016 Neurologic No alteration of consciousness 06/17/2016 Neurologic No mental status change 06/17/2016 Physical Exam Exam Name System Name Item Name Status Result Effective Dates Notes Full Exam - ENT Constitutional general appearance Overall: well nourished 03/21/2019 None Full Exam - ENT Constitutional general appearance Overall: well developed 03/21/2019 None Full Exam - ENT Constitutional general appearance Overall: in no acute distress 03/21/2019 None Full Exam - ENT Ears/Nose/Throat otoscopic exam Overall: external auditory canals normal 03/21/2019 None Full Exam - ENT Ears/Nose/Throat otoscopic exam Left tympanic membrane: air-fluid level 03/21/2019 None Full Exam - ENT Ears/Nose/Throat otoscopic exam Right tympanic membrane: air-fluid level 03/21/2019 None Full Exam - ENT Ears/Nose/Throat nasal mucosa, septum, turbinates Drainage: clear 03/21/2019 None Full Exam - ENT Ears/Nose/Throat nasal mucosa, septum, turbinates Drainage: yellow 03/21/2019 None Full Exam - ENT Ears/Nose/Throat lips/teeth/gingiva Overall: benign lips 03/21/2019 None Full Exam - ENT Ears/Nose/Throat oropharynx Posterior Pharynx: clear post nasal drainage 03/21/2019 None Full Exam - ENT Face and Head palpation Left maxillary sinus: tender 03/21/2019 None Full Exam - ENT Face and Head palpation Right maxillary sinus: tender 03/21/2019 None Full Exam - ENT Respiratory inspection Overall: no retractions 03/21/2019 None Full Exam - ENT Respiratory inspection Overall: normal rate 03/21/2019 None Full Exam - ENT Respiratory auscultation Overall: breath sounds clear bilaterally 03/21/2019 None Full Exam - ENT Cardiovascular auscultation of heart Overall: regular rate 03/21/2019 None Full Exam - ENT Cardiovascular auscultation of heart Overall: normal heart sounds 03/21/2019 None Full Exam - ENT Lymphatic palpation of lymph nodes Overall: anterior cervical chain benign 03/21/2019 None Full Exam - ENT Lymphatic palpation of lymph nodes Overall: posterior cervical chain benign 03/21/2019 None Full Exam - ENT Neurologic mood and affect Overall: normal mood 03/21/2019 None Full Exam - ENT Neurologic mood and affect Overall: normal affect 03/21/2019 None Full Exam - ENT Neurologic orientation Overall: oriented to person, place and time 03/21/2019 None Full Exam - ENT Respiratory auscultation Diffuse: expiratory wheezes 03/21/2019 faint Full Exam - General 1994 Constitutional general appearance Overall: well developed 02/25/2019 None Full Exam - General 1994 Constitutional general appearance Overall: in no acute distress 02/25/2019 None Full Exam - General 1994 Constitutional general appearance Overall: well nourished 02/25/2019 None Full Exam - General 1994 Eyes conjunctiva/eyelids Overall: conjunctiva clear 02/25/2019 None Full Exam - General 1994 Eyes conjunctiva/eyelids Overall: eyelids normal 02/25/2019 None Full Exam - General 1994 Ears/Nose/Throat otoscopic exam Overall: external auditory canals clear 02/25/2019 None Full Exam - General 1994 Ears/Nose/Throat otoscopic exam Tympanic membrane: air-fluid level 02/25/2019 None Full Exam - General 1994 Ears/Nose/Throat lips/teeth/gingiva Overall: benign lips 02/25/2019 None Full Exam - General 1994 Ears/Nose/Throat oral cavity/pharynx/larynx Overall: oral mucosa clear 02/25/2019 None Full Exam - General 1994 Ears/Nose/Throat oral cavity/pharynx/larynx Posterior Pharynx: clear post nasal drainage 02/25/2019 None Full Exam - General 1994 Respiratory auscultation Diffuse: diminished 02/25/2019 None Full Exam - General 1994 Respiratory auscultation Lower lung field: expiratory wheezes 02/25/2019 None Full Exam - General 1994 Respiratory respiratory effort/rhythm Overall: no retractions 02/25/2019 None Full Exam - General 1994 Respiratory respiratory effort/rhythm Overall: normal rate 02/25/2019 None Full Exam - General 1994 Cardiovascular auscultation of heart Overall: regular rate 02/25/2019 None Full Exam - General 1994 Cardiovascular auscultation of heart Overall: normal heart sounds 02/25/2019 None Full Exam - General 1994 Lymphatic neck nodes Overall: anterior cervical chain benign 02/25/2019 None Full Exam - General 1994 Lymphatic neck nodes Overall: posterior cervical chain benign 02/25/2019 None Full Exam - General 1994 Integument inspection of skin Overall: few scattered moles, no gross abnormalities 02/25/2019 None Full Exam - General 1994 Neurologic cranial nerves Overall: crainial nerves 2 - 12 grossly intact 02/25/2019 None Full Exam - General 1994 Psychiatric orientation/consciousness Overall: oriented to person, place and time 02/25/2019 None Full Exam - General 1994 Psychiatric mood and affect Overall: normal mood and affect 02/25/2019 None Full Exam - Dermatology Constitutional general appearance Overall: well nourished 02/08/2019 None Full Exam - Dermatology Constitutional general appearance Overall: well developed 02/08/2019 None Full Exam - Dermatology Constitutional general appearance Overall: in no acute distress 02/08/2019 None Full Exam - Dermatology Eyes conjunctiva/eyelids Overall: clear conjunctiva bilaterally 02/08/2019 None Full Exam - Dermatology Eyes conjunctiva/eyelids Overall: clear corneas 02/08/2019 None Full Exam - Dermatology Eyes conjunctiva/eyelids Overall: normal eyelids 02/08/2019 None Full Exam - Dermatology Ears/Nose/Throat lips/teeth/gingiva Overall: benign lips 02/08/2019 None Full Exam - Dermatology Ears/Nose/Throat oropharynx Overall: clear oral mucosa 02/08/2019 None Full Exam - Dermatology Respiratory respiratory effort/rhythm Overall: no retractions 02/08/2019 None Full Exam - Dermatology Respiratory respiratory effort/rhythm Overall: normal rate 02/08/2019 None Full Exam - Dermatology Musculoskeletal head and neck Overall: head atraumatic 02/08/2019 None Full Exam - Dermatology Psychiatric orientation Overall: oriented to person, place and time 02/08/2019 None Full Exam - Dermatology Psychiatric mood and affect Overall: normal mood and affect 02/08/2019 None Full Exam - Dermatology Integument insp & palp - left lower extremity Lesion: cellulitis 02/08/2019 None Full Exam - Dermatology Integument insp & palp - left lower extremity Location: on the ankle 02/08/2019 None Full Exam - Dermatology Integument insp & palp - left lower extremity Color: erythematous 02/08/2019 over varicose veins Full Exam - General 1994 Constitutional general appearance Overall: well developed 02/05/2019 None Full Exam - General 1994 Constitutional general appearance Overall: in no acute distress 02/05/2019 None Full Exam - General 1994 Constitutional general appearance Overall: well nourished 02/05/2019 None Full Exam - General 1994 Eyes conjunctiva/eyelids Overall: conjunctiva clear 02/05/2019 None Full Exam - General 1994 Eyes conjunctiva/eyelids Overall: cornea clear 02/05/2019 None Full Exam - General 1994 Eyes conjunctiva/eyelids Overall: eyelids normal 02/05/2019 None Full Exam - General 1994 Ears/Nose/Throat lips/teeth/gingiva Overall: benign lips 02/05/2019 None Full Exam - General 1994 Ears/Nose/Throat oral cavity/pharynx/larynx Overall: oral mucosa clear 02/05/2019 None Full Exam - General 1994 Respiratory auscultation Overall: breath sounds clear bilaterally 02/05/2019 None Full Exam - General 1994 Respiratory respiratory effort/rhythm Overall: no retractions 02/05/2019 None Full Exam - General 1994 Respiratory respiratory effort/rhythm Overall: normal rate 02/05/2019 None Full Exam - General 1994 Cardiovascular auscultation of heart Overall: regular rate 02/05/2019 None Full Exam - General 1994 Cardiovascular auscultation of heart Overall: normal heart sounds 02/05/2019 None Full Exam - General 1994 Abdomen abdominal exam Bowel sounds: hyperactive 02/05/2019 None Full Exam - General 1994 Musculoskeletal head and neck Overall: head atraumatic 02/05/2019 None Full Exam - General 1994 Neurologic cranial nerves Overall: crainial nerves 2 - 12 grossly intact 02/05/2019 None Full Exam - General 1994 Psychiatric orientation/consciousness Overall: oriented to person, place and time 02/05/2019 None Full Exam - General 1994 Psychiatric mood and affect Overall: normal mood and affect 02/05/2019 None Full Exam - General 1994 Abdomen abdominal exam Lower quadrant: tender to palpation 02/05/2019 None Full Exam - General 1994 Abdomen abdominal exam Lower quadrant: dull pain 02/05/2019 None Full Exam - General 1994 Abdomen abdominal exam Lower quadrant: voluntary guarding 02/05/2019 None Full Exam - General 1994 Abdomen abdominal exam Lower quadrant: no rebound tenderness 02/05/2019 None Full Exam - General 1994 Abdomen abdominal exam Lower quadrant: soft 02/05/2019 None Full Exam - General 1994 Constitutional general appearance Overall: well developed 01/23/2019 None Full Exam - General 1994 Constitutional general appearance Overall: in no acute distress 01/23/2019 None Full Exam - General 1994 Constitutional general appearance Overall: well nourished 01/23/2019 None Full Exam - General 1994 Eyes conjunctiva/eyelids Overall: eyelids normal 01/23/2019 None Full Exam - General 1994 Eyes conjunctiva/eyelids Overall: conjunctiva clear 01/23/2019 None Full Exam - General 1994 Eyes conjunctiva/eyelids Overall: cornea clear 01/23/2019 None Full Exam - General 1994 Ears/Nose/Throat lips/teeth/gingiva Overall: benign lips 01/23/2019 None Full Exam - General 1994 Ears/Nose/Throat oral cavity/pharynx/larynx Overall: oral mucosa clear 01/23/2019 None Full Exam - General 1994 Respiratory respiratory effort/rhythm Overall: normal rate 01/23/2019 None Full Exam - General 1994 Respiratory respiratory effort/rhythm Overall: no retractions 01/23/2019 None Full Exam - General 1994 Cardiovascular auscultation of heart Overall: regular rate 01/23/2019 None Full Exam - General 1994 Cardiovascular auscultation of heart Overall: normal heart sounds 01/23/2019 None Full Exam - General 1994 Musculoskeletal head and neck Overall: head atraumatic 01/23/2019 None Full Exam - General 1994 Neurologic cranial nerves Overall: crainial nerves 2 - 12 grossly intact 01/23/2019 None Full Exam - General 1994 Psychiatric orientation/consciousness Overall: oriented to person, place and time 01/23/2019 None Full Exam - General 1994 Psychiatric mood and affect Overall: normal mood and affect 01/23/2019 None Full Exam - General 1994 Cardiovascular extremities Edema present: bilateral 01/23/2019 feet Full Exam - General 1994 Cardiovascular extremities Edema present: severity 1+ - 4+: trace 01/23/2019 None Full Exam - General 1994 Constitutional general appearance Overall: well developed 01/09/2019 None Full Exam - General 1994 Constitutional general appearance Overall: in no acute distress 01/09/2019 None Full Exam - General 1994 Constitutional general appearance Overall: well nourished 01/09/2019 None Full Exam - General 1994 Eyes conjunctiva/eyelids Overall: eyelids normal 01/09/2019 None Full Exam - General 1994 Eyes conjunctiva/eyelids Overall: cornea clear 01/09/2019 None Full Exam - General 1994 Eyes conjunctiva/eyelids Overall: conjunctiva clear 01/09/2019 None Full Exam - General 1995 Ears/Nose/Throat lips/teeth/gingiva Overall: benign lips 01/09/2019 None Full Exam - General 1994 Ears/Nose/Throat oral cavity/pharynx/larynx Overall: oral mucosa clear 01/09/2019 None Full Exam - General 1994 Respiratory respiratory effort/rhythm Overall: normal rate 01/09/2019 None Full Exam - General 1994 Respiratory respiratory effort/rhythm Overall: no retractions 01/09/2019 None Full Exam - General 1994 Cardiovascular auscultation of heart Overall: normal heart sounds 01/09/2019 None Full Exam - General 1994 Cardiovascular auscultation of heart Overall: regular rate 01/09/2019 None Full Exam - General 1994 Musculoskeletal head and neck Overall: head atraumatic 01/09/2019 None Full Exam - General 1994 Musculoskeletal gait and station Overall: normal station 01/09/2019 None Full Exam - General 1994 Musculoskeletal gait and station Overall: normal gait 01/09/2019 None Full Exam - General 1994 Neurologic cranial nerves Overall: crainial nerves 2 - 12 grossly intact 01/09/2019 None Full Exam - General 1994 Psychiatric orientation/consciousness Overall: oriented to person, place and time 01/09/2019 None Full Exam - General 1994 Psychiatric mood and affect Overall: normal mood and affect 01/09/2019 None Full Exam - ENT Constitutional general appearance Overall: well nourished 10/05/2018 None Full Exam - ENT Constitutional general appearance Overall: well developed 10/05/2018 None Full Exam - ENT Constitutional general appearance Overall: in no acute distress 10/05/2018 None Full Exam - ENT Ears/Nose/Throat otoscopic exam Overall: external auditory canals normal 10/05/2018 None Full Exam - ENT Ears/Nose/Throat nasal mucosa, septum, turbinates Drainage: clear 10/05/2018 None Full Exam - ENT Ears/Nose/Throat nasal mucosa, septum, turbinates Drainage: yellow 10/05/2018 None Full Exam - ENT Ears/Nose/Throat lips/teeth/gingiva Overall: benign lips 10/05/2018 None Full Exam - ENT Ears/Nose/Throat oropharynx Posterior Pharynx: clear post nasal drainage 10/05/2018 None Full Exam - ENT Respiratory inspection Overall: no retractions 10/05/2018 None Full Exam - ENT Respiratory inspection Overall: normal rate 10/05/2018 None Full Exam - ENT Respiratory auscultation Diffuse: diminished 10/05/2018 None Full Exam - ENT Respiratory auscultation Right lower lung field: expiratory wheezes 10/05/2018 faint Full Exam - ENT Cardiovascular auscultation of heart Overall: regular rate 10/05/2018 None Full Exam - ENT Cardiovascular auscultation of heart Overall: normal heart sounds 10/05/2018 None Full Exam - ENT Lymphatic palpation of lymph nodes Overall: anterior cervical chain benign 10/05/2018 None Full Exam - ENT Lymphatic palpation of lymph nodes Overall: posterior cervical chain benign 10/05/2018 None Full Exam - ENT Neurologic mood and affect Overall: normal mood 10/05/2018 None Full Exam - ENT Neurologic mood and affect Overall: normal affect 10/05/2018 None Full Exam - ENT Neurologic orientation Overall: oriented to person, place and time 10/05/2018 None Full Exam - ENT Face and Head palpation Overall: no sinus tenderness 10/05/2018 None Full Exam - ENT Ears/Nose/Throat otoscopic exam Overall: tympanic membranes normal 10/05/2018 None Full Exam - General 1994 Constitutional general appearance Overall: well developed 08/20/2018 None Full Exam - General 1994 Constitutional general appearance Overall: in no acute distress 08/20/2018 None Full Exam - General 1994 Constitutional general appearance Overall: well nourished 08/20/2018 None Full Exam - General 1994 Eyes conjunctiva/eyelids Overall: conjunctiva clear 08/20/2018 None Full Exam - General 1994 Eyes conjunctiva/eyelids Overall: eyelids normal 08/20/2018 None Full Exam - General 1994 Ears/Nose/Throat lips/teeth/gingiva Overall: benign lips 08/20/2018 None Full Exam - General 1994 Ears/Nose/Throat oral cavity/pharynx/larynx Overall: oral mucosa clear 08/20/2018 None Full Exam - General 1994 Respiratory auscultation Overall: breath sounds clear bilaterally 08/20/2018 None Full Exam - General 1994 Respiratory respiratory effort/rhythm Overall: no retractions 08/20/2018 None Full Exam - General 1994 Respiratory respiratory effort/rhythm Overall: normal rate 08/20/2018 None Full Exam - General 1994 Cardiovascular auscultation of heart Overall: regular rate 08/20/2018 None Full Exam - General 1994 Cardiovascular auscultation of heart Overall: normal heart sounds 08/20/2018 None Full Exam - General 1994 Abdomen abdominal exam Overall: normal bowel sounds 08/20/2018 None Full Exam - General 1994 Abdomen abdominal exam Lower quadrant: tender to palpation 08/20/2018 None Full Exam - General 1994 Abdomen abdominal exam Lower quadrant: dull pain 08/20/2018 mild Full Exam - General 1994 Abdomen abdominal exam Lower quadrant: no guarding 08/20/2018 None Full Exam - General 1994 Abdomen abdominal exam Lower quadrant: no rebound tenderness 08/20/2018 None Full Exam - General 1994 Abdomen abdominal exam Lower quadrant: soft 08/20/2018 None Full Exam - General 1994 Musculoskeletal head and neck Overall: head atraumatic 08/20/2018 None Full Exam - General 1994 Neurologic cranial nerves Overall: crainial nerves 2 - 12 grossly intact 08/20/2018 None Full Exam - General 1994 Psychiatric orientation/consciousness Overall: oriented to person, place and time 08/20/2018 None Full Exam - General 1994 Psychiatric mood and affect Overall: normal mood and affect 08/20/2018 None Full Exam - General 1994 Psychiatric appearance Overall: well-groomed, good eye contact 08/20/2018 None Full Exam - General 1994 Eyes conjunctiva/eyelids Overall: cornea clear 08/20/2018 None Full Exam - ENT Constitutional general appearance Overall: well nourished 07/24/2018 None Full Exam - ENT Constitutional general appearance Overall: well developed 07/24/2018 None Full Exam - ENT Constitutional general appearance Overall: in no acute distress 07/24/2018 None Full Exam - ENT Ears/Nose/Throat otoscopic exam Overall: external auditory canals normal 07/24/2018 None Full Exam - ENT Ears/Nose/Throat otoscopic exam Left tympanic membrane: air-fluid level 07/24/2018 None Full Exam - ENT Ears/Nose/Throat otoscopic exam Right tympanic membrane: air-fluid level 07/24/2018 None Full Exam - ENT Ears/Nose/Throat nasal mucosa, septum, turbinates Drainage: clear 07/24/2018 None Full Exam - ENT Ears/Nose/Throat nasal mucosa, septum, turbinates Drainage: yellow 07/24/2018 None Full Exam - ENT Ears/Nose/Throat lips/teeth/gingiva Overall: benign lips 07/24/2018 None Full Exam - ENT Ears/Nose/Throat oropharynx Posterior Pharynx: clear post nasal drainage 07/24/2018 None Full Exam - ENT Face and Head palpation Left maxillary sinus: tender 07/24/2018 None Full Exam - ENT Face and Head palpation Right maxillary sinus: tender 07/24/2018 None Full Exam - ENT Respiratory inspection Overall: no retractions 07/24/2018 None Full Exam - ENT Respiratory inspection Overall: normal rate 07/24/2018 None Full Exam - ENT Respiratory auscultation Overall: breath sounds clear bilaterally 07/24/2018 None Full Exam - ENT Cardiovascular auscultation of heart Overall: regular rate 07/24/2018 None Full Exam - ENT Cardiovascular auscultation of heart Overall: normal heart sounds 07/24/2018 None Full Exam - ENT Lymphatic palpation of lymph nodes Overall: anterior cervical chain benign 07/24/2018 None Full Exam - ENT Lymphatic palpation of lymph nodes Overall: posterior cervical chain benign 07/24/2018 None Full Exam - ENT Neurologic mood and affect Overall: normal mood 07/24/2018 None Full Exam - ENT Neurologic mood and affect Overall: normal affect 07/24/2018 None Full Exam - ENT Neurologic orientation Overall: oriented to person, place and time 07/24/2018 None Full Exam - General 1994 Constitutional general appearance Overall: well developed 05/07/2018 None Full Exam - General 1994 Constitutional general appearance Overall: in no acute distress 05/07/2018 None Full Exam - General 1994 Constitutional general appearance Overall: well nourished 05/07/2018 None Full Exam - General 1994 Respiratory auscultation Overall: breath sounds clear bilaterally 05/07/2018 None Full Exam - General 1994 Respiratory respiratory effort/rhythm Overall: no retractions 05/07/2018 None Full Exam - General 1994 Respiratory respiratory effort/rhythm Overall: normal rate 05/07/2018 None Full Exam - General 1994 Cardiovascular auscultation of heart Overall: regular rate 05/07/2018 None Full Exam - General 1994 Cardiovascular auscultation of heart Overall: normal heart sounds 05/07/2018 None Full Exam - General 1994 Psychiatric orientation/consciousness Overall: oriented to person, place and time 05/07/2018 None Full Exam - General 1994 Integument inspection of skin Location: neck 05/07/2018 right posterior scalp, shoulder, neck and chest wall Full Exam - General 1994 Integument inspection of skin Rash/Lesions: vesicle 05/07/2018 None Full Exam - General 1994 Integument inspection of skin Rash/Lesions: patch 05/07/2018 None Full Exam - General 1994 Integument inspection of skin Pigmentation: erythematous 05/07/2018 None Full Exam - General 1994 Constitutional general appearance Overall: well developed 04/20/2018 None Full Exam - General 1994 Constitutional general appearance Overall: well nourished 04/20/2018 None Full Exam - General 1994 Constitutional general appearance Overall: in no acute distress 04/20/2018 None Full Exam - General 1994 Eyes conjunctiva/eyelids Overall: eyelids normal 04/20/2018 None Full Exam - General 1994 Eyes conjunctiva/eyelids Overall: cornea clear 04/20/2018 None Full Exam - General 1994 Eyes conjunctiva/eyelids Overall: conjunctiva clear 04/20/2018 None Full Exam - General 1994 Eyes pupils and irises Overall: pupils equal, round, reactive to light and accomodation 04/20/2018 None Full Exam - General 1994 Ears/Nose/Throat otoscopic exam Overall: tympanic membranes clear 04/20/2018 None Full Exam - General 1994 Ears/Nose/Throat otoscopic exam Overall: external auditory canals clear 04/20/2018 None Full Exam - General 1994 Ears/Nose/Throat lips/teeth/gingiva Overall: benign lips 04/20/2018 None Full Exam - General 1994 Ears/Nose/Throat oral cavity/pharynx/larynx Overall: oral mucosa clear 04/20/2018 None Full Exam - General 1994 Ears/Nose/Throat oral cavity/pharynx/larynx Posterior Pharynx: clear post nasal drainage 04/20/2018 None Full Exam - General 1994 Respiratory respiratory effort/rhythm Overall: normal rate 04/20/2018 None Full Exam - General 1994 Respiratory respiratory effort/rhythm Overall: no retractions 04/20/2018 None Full Exam - General 1994 Respiratory auscultation Overall: breath sounds clear bilaterally 04/20/2018 None Full Exam - General 1994 Respiratory auscultation Lower lung field: expiratory wheezes 04/20/2018 very faint Full Exam - General 1994 Cardiovascular auscultation of heart Overall: normal heart sounds 04/20/2018 None Full Exam - General 1994 Cardiovascular auscultation of heart Overall: regular rate 04/20/2018 None Full Exam - General 1994 Abdomen abdominal exam Overall: normal bowel sounds 04/20/2018 None Full Exam - General 1994 Abdomen abdominal exam Overall: no tenderness 04/20/2018 None Full Exam - General 1994 Musculoskeletal head and neck Overall: head atraumatic 04/20/2018 None Full Exam - General 1994 Musculoskeletal gait and station Overall: normal station 04/20/2018 None Full Exam - General 1994 Musculoskeletal gait and station Overall: normal gait 04/20/2018 None Full Exam - General 1994 Neurologic cranial nerves Overall: crainial nerves 2 - 12 grossly intact 04/20/2018 None Full Exam - General 1994 Psychiatric orientation/consciousness Overall: oriented to person, place and time 04/20/2018 None Full Exam - General 1994 Psychiatric mood and affect Overall: normal mood and affect 04/20/2018 None Full Exam - General 1994 Psychiatric appearance Overall: well-groomed, good eye contact 04/20/2018 None Full Exam - Dermatology Constitutional general appearance Overall: well nourished 04/09/2018 None Full Exam - Dermatology Constitutional general appearance Overall: well developed 04/09/2018 None Full Exam - Dermatology Constitutional general appearance Overall: in no acute distress 04/09/2018 None Full Exam - Dermatology Eyes conjunctiva/eyelids Overall: clear conjunctiva bilaterally 04/09/2018 None Full Exam - Dermatology Eyes conjunctiva/eyelids Overall: clear corneas 04/09/2018 None Full Exam - Dermatology Eyes conjunctiva/eyelids Overall: normal eyelids 04/09/2018 None Full Exam - Dermatology Ears/Nose/Throat lips/teeth/gingiva Overall: benign lips 04/09/2018 None Full Exam - Dermatology Ears/Nose/Throat oropharynx Overall: clear oral mucosa 04/09/2018 None Full Exam - Dermatology Respiratory auscultation Overall: breath sounds clear bilaterally 04/09/2018 None Full Exam - Dermatology Respiratory auscultation Right lower lung field: expiratory wheezes 04/09/2018 faint Full Exam - Dermatology Respiratory respiratory effort/rhythm Overall: no retractions 04/09/2018 None Full Exam - Dermatology Respiratory respiratory effort/rhythm Overall: normal rate 04/09/2018 None Full Exam - Dermatology Musculoskeletal head and neck Overall: head atraumatic 04/09/2018 None Full Exam - Dermatology Musculoskeletal gait and station Overall: normal station 04/09/2018 None Full Exam - Dermatology Musculoskeletal gait and station Overall: normal gait 04/09/2018 None Full Exam - Dermatology Integument insp & palp - left lower extremity Lesion: cellulitis 04/09/2018 None Full Exam - Dermatology Integument insp & palp - left lower extremity Location: on the toes 04/09/2018 great toe Full Exam - Dermatology Integument insp & palp - left lower extremity Color: erythematous 04/09/2018 None Full Exam - Dermatology Integument insp & palp - left lower extremity Appearance: edematous 04/09/2018 mild Full Exam - Dermatology Neurologic cranial nerves Overall: cranial nerves 1-12 intact 04/09/2018 None Full Exam - Dermatology Neurologic sensation Overall: intact to touch, pin, vibration, proprioception 04/09/2018 None Full Exam - Dermatology Psychiatric orientation Overall: oriented to person, place and time 04/09/2018 None Full Exam - Dermatology Psychiatric mood and affect Overall: normal mood and affect 04/09/2018 None Full Exam - ENT Constitutional general appearance Overall: well nourished 12/08/2017 None Full Exam - ENT Constitutional general appearance Overall: well developed 12/08/2017 None Full Exam - ENT Constitutional general appearance Overall: in no acute distress 12/08/2017 None Full Exam - ENT Ears/Nose/Throat otoscopic exam Overall: external auditory canals normal 12/08/2017 None Full Exam - ENT Ears/Nose/Throat otoscopic exam Left tympanic membrane: erythematous 12/08/2017 None Full Exam - ENT Ears/Nose/Throat otoscopic exam Left tympanic membrane: air-fluid level 12/08/2017 None Full Exam - ENT Ears/Nose/Throat otoscopic exam Right tympanic membrane: erythematous 12/08/2017 None Full Exam - ENT Ears/Nose/Throat otoscopic exam Right tympanic membrane: air-fluid level 12/08/2017 None Full Exam - ENT Ears/Nose/Throat nasal mucosa, septum, turbinates Drainage: clear 12/08/2017 None Full Exam - ENT Ears/Nose/Throat nasal mucosa, septum, turbinates Drainage: yellow 12/08/2017 None Full Exam - ENT Ears/Nose/Throat lips/teeth/gingiva Overall: benign lips 12/08/2017 None Full Exam - ENT Ears/Nose/Throat oropharynx Posterior Pharynx: clear post nasal drainage 12/08/2017 None Full Exam - ENT Face and Head palpation Left maxillary sinus: tender 12/08/2017 None Full Exam - ENT Face and Head palpation Right maxillary sinus: tender 12/08/2017 None Full Exam - ENT Respiratory inspection Overall: no retractions 12/08/2017 None Full Exam - ENT Respiratory inspection Overall: normal rate 12/08/2017 None Full Exam - ENT Respiratory auscultation Diffuse: diminished 12/08/2017 None Full Exam - ENT Cardiovascular auscultation of heart Overall: regular rate 12/08/2017 None Full Exam - ENT Cardiovascular auscultation of heart Overall: normal heart sounds 12/08/2017 None Full Exam - ENT Lymphatic palpation of lymph nodes Overall: anterior cervical chain benign 12/08/2017 None Full Exam - ENT Lymphatic palpation of lymph nodes Overall: posterior cervical chain benign 12/08/2017 None Full Exam - ENT Neurologic mood and affect Overall: normal mood 12/08/2017 None Full Exam - ENT Neurologic mood and affect Overall: normal affect 12/08/2017 None Full Exam - ENT Neurologic orientation Overall: oriented to person, place and time 12/08/2017 None Full Exam - ENT Respiratory auscultation Right lower lung field: expiratory wheezes 12/08/2017 None Full Exam - ENT Respiratory auscultation Left lower lung field: expiratory wheezes 12/08/2017 None Full Exam - ENT Constitutional general appearance Overall: well nourished 12/01/2017 None Full Exam - ENT Constitutional general appearance Overall: well developed 12/01/2017 None Full Exam - ENT Constitutional general appearance Overall: in no acute distress 12/01/2017 None Full Exam - ENT Ears/Nose/Throat otoscopic exam Overall: external auditory canals normal 12/01/2017 None Full Exam - ENT Ears/Nose/Throat otoscopic exam Left tympanic membrane: air-fluid level 12/01/2017 None Full Exam - ENT Ears/Nose/Throat nasal mucosa, septum, turbinates Drainage: clear 12/01/2017 None Full Exam - ENT Ears/Nose/Throat nasal mucosa, septum, turbinates Drainage: yellow 12/01/2017 None Full Exam - ENT Ears/Nose/Throat lips/teeth/gingiva Overall: benign lips 12/01/2017 None Full Exam - ENT Ears/Nose/Throat oropharynx Posterior Pharynx: clear post nasal drainage 12/01/2017 None Full Exam - ENT Face and Head palpation Left maxillary sinus: tender 12/01/2017 None Full Exam - ENT Face and Head palpation Right maxillary sinus: tender 12/01/2017 None Full Exam - ENT Respiratory inspection Overall: no retractions 12/01/2017 None Full Exam - ENT Respiratory inspection Overall: normal rate 12/01/2017 None Full Exam - ENT Cardiovascular auscultation of heart Overall: regular rate 12/01/2017 None Full Exam - ENT Cardiovascular auscultation of heart Overall: normal heart sounds 12/01/2017 None Full Exam - ENT Lymphatic palpation of lymph nodes Overall: anterior cervical chain benign 12/01/2017 None Full Exam - ENT Lymphatic palpation of lymph nodes Overall: posterior cervical chain benign 12/01/2017 None Full Exam - ENT Neurologic mood and affect Overall: normal mood 12/01/2017 None Full Exam - ENT Neurologic mood and affect Overall: normal affect 12/01/2017 None Full Exam - ENT Neurologic orientation Overall: oriented to person, place and time 12/01/2017 None Full Exam - ENT Respiratory auscultation Diffuse: diminished 12/01/2017 None Full Exam - ENT Respiratory auscultation Right lower lung field: expiratory wheezes 12/01/2017 faint Full Exam - ENT Ears/Nose/Throat otoscopic exam Right tympanic membrane: air-fluid level 12/01/2017 None Full Exam - ENT Ears/Nose/Throat otoscopic exam Right tympanic membrane: erythematous 12/01/2017 None Full Exam - ENT Ears/Nose/Throat otoscopic exam Left tympanic membrane: erythematous 12/01/2017 None Full Exam - General 1994 Constitutional general appearance Overall: well developed 10/10/2017 None Full Exam - General 1994 Constitutional general appearance Overall: in no acute distress 10/10/2017 None Full Exam - General 1994 Constitutional general appearance Overall: well nourished 10/10/2017 None Full Exam - General 1994 Eyes conjunctiva/eyelids Overall: conjunctiva clear 10/10/2017 None Full Exam - General 1994 Eyes conjunctiva/eyelids Overall: eyelids normal 10/10/2017 None Full Exam - General 1994 Ears/Nose/Throat otoscopic exam Overall: external auditory canals clear 10/10/2017 None Full Exam - General 1994 Ears/Nose/Throat otoscopic exam Overall: tympanic membranes clear 10/10/2017 None Full Exam - General 1994 Ears/Nose/Throat lips/teeth/gingiva Overall: benign lips 10/10/2017 None Full Exam - General 1994 Ears/Nose/Throat oral cavity/pharynx/larynx Overall: oral mucosa clear 10/10/2017 None Full Exam - General 1994 Respiratory auscultation Diffuse: diminished 10/10/2017 None Full Exam - General 1994 Respiratory respiratory effort/rhythm Overall: no retractions 10/10/2017 None Full Exam - General 1994 Respiratory respiratory effort/rhythm Overall: normal rate 10/10/2017 None Full Exam - General 1994 Cardiovascular auscultation of heart Overall: regular rate 10/10/2017 None Full Exam - General 1994 Cardiovascular auscultation of heart Overall: normal heart sounds 10/10/2017 None Full Exam - General 1994 Lymphatic neck nodes Overall: anterior cervical chain benign 10/10/2017 None Full Exam - General 1994 Lymphatic neck nodes Overall: posterior cervical chain benign 10/10/2017 None Full Exam - General 1994 Neurologic cranial nerves Overall: crainial nerves 2 - 12 grossly intact 10/10/2017 None Full Exam - General 1994 Psychiatric orientation/consciousness Overall: oriented to person, place and time 10/10/2017 None Full Exam - General 1994 Psychiatric mood and affect Overall: normal mood and affect 10/10/2017 None Full Exam - General 1994 Psychiatric appearance Overall: well-groomed, good eye contact 10/10/2017 None Full Exam - General 1994 Eyes conjunctiva/eyelids Overall: cornea clear 10/10/2017 None Full Exam - General 1994 Ears/Nose/Throat oral cavity/pharynx/larynx Posterior Pharynx: clear post nasal drainage 10/10/2017 None Full Exam - General 1994 Constitutional general appearance Overall: well developed 09/20/2017 None Full Exam - General 1994 Constitutional general appearance Overall: in no acute distress 09/20/2017 None Full Exam - General 1994 Constitutional general appearance Overall: well nourished 09/20/2017 None Full Exam - General 1994 Eyes conjunctiva/eyelids Overall: conjunctiva clear 09/20/2017 None Full Exam - General 1994 Eyes conjunctiva/eyelids Overall: eyelids normal 09/20/2017 None Full Exam - General 1994 Ears/Nose/Throat otoscopic exam Overall: external auditory canals clear 09/20/2017 None Full Exam - General 1994 Ears/Nose/Throat otoscopic exam Overall: tympanic membranes clear 09/20/2017 None Full Exam - General 1994 Ears/Nose/Throat lips/teeth/gingiva Overall: benign lips 09/20/2017 None Full Exam - General 1994 Ears/Nose/Throat oral cavity/pharynx/larynx Overall: oral mucosa clear 09/20/2017 None Full Exam - General 1994 Respiratory auscultation Diffuse: diminished 09/20/2017 None Full Exam - General 1994 Respiratory auscultation Lower lung field: expiratory wheezes 09/20/2017 faint Full Exam - General 1994 Respiratory respiratory effort/rhythm Overall: no retractions 09/20/2017 None Full Exam - General 1994 Respiratory respiratory effort/rhythm Overall: normal rate 09/20/2017 None Full Exam - General 1994 Cardiovascular auscultation of heart Overall: regular rate 09/20/2017 None Full Exam - General 1994 Cardiovascular auscultation of heart Overall: normal heart sounds 09/20/2017 None Full Exam - General 1994 Lymphatic neck nodes Overall: anterior cervical chain benign 09/20/2017 None Full Exam - General 1994 Lymphatic neck nodes Overall: posterior cervical chain benign 09/20/2017 None Full Exam - General 1994 Neurologic cranial nerves Overall: crainial nerves 2 - 12 grossly intact 09/20/2017 None Full Exam - General 1994 Psychiatric orientation/consciousness Overall: oriented to person, place and time 09/20/2017 None Full Exam - General 1994 Psychiatric mood and affect Overall: normal mood and affect 09/20/2017 None Full Exam - General 1994 Psychiatric appearance Overall: well-groomed, good eye contact 09/20/2017 None Full Exam - ENT Constitutional general appearance Overall: well nourished 09/12/2017 None Full Exam - ENT Constitutional general appearance Overall: well developed 09/12/2017 None Full Exam - ENT Constitutional general appearance Overall: in no acute distress 09/12/2017 None Full Exam - ENT Ears/Nose/Throat otoscopic exam Overall: external auditory canals normal 09/12/2017 None Full Exam - ENT Ears/Nose/Throat otoscopic exam Left tympanic membrane: air-fluid level 09/12/2017 None Full Exam - ENT Ears/Nose/Throat otoscopic exam Right tympanic membrane: air-fluid level 09/12/2017 None Full Exam - ENT Ears/Nose/Throat lips/teeth/gingiva Overall: benign lips 09/12/2017 None Full Exam - ENT Ears/Nose/Throat oropharynx Overall: oral mucosa clear 09/12/2017 None Full Exam - ENT Ears/Nose/Throat oropharynx Posterior Pharynx: clear post nasal drainage 09/12/2017 None Full Exam - ENT Ears/Nose/Throat oropharynx Posterior Pharynx: erythema 09/12/2017 None Full Exam - ENT Respiratory inspection Overall: no retractions 09/12/2017 None Full Exam - ENT Respiratory inspection Overall: normal rate 09/12/2017 None Full Exam - ENT Cardiovascular auscultation of heart Rate: normal rate 09/12/2017 None Full Exam - ENT Cardiovascular auscultation of heart Rhythm: regular rhythm 09/12/2017 None Full Exam - ENT Lymphatic palpation of lymph nodes Overall: anterior cervical chain benign 09/12/2017 None Full Exam - ENT Lymphatic palpation of lymph nodes Overall: posterior cervical chain benign 09/12/2017 None Full Exam - ENT Neurologic mood and affect Overall: normal mood 09/12/2017 None Full Exam - ENT Neurologic mood and affect Overall: normal affect 09/12/2017 None Full Exam - ENT Neurologic orientation Overall: oriented to person, place and time 09/12/2017 None Full Exam - ENT Respiratory auscultation Right lower lung field: expiratory wheezes 09/12/2017 None Full Exam - ENT Respiratory auscultation Left lower lung field: expiratory wheezes 09/12/2017 None Full Exam - ENT Face and Head palpation Left maxillary sinus: tender 09/12/2017 None Full Exam - ENT Face and Head palpation Right maxillary sinus: tender 09/12/2017 None Full Exam - General 1994 Constitutional general appearance Overall: well developed 08/18/2017 None Full Exam - General 1994 Constitutional general appearance Overall: in no acute distress 08/18/2017 None Full Exam - General 1994 Constitutional general appearance Overall: well nourished 08/18/2017 None Full Exam - General 1994 Eyes conjunctiva/eyelids Overall: conjunctiva clear 08/18/2017 None Full Exam - General 1994 Eyes conjunctiva/eyelids Overall: eyelids normal 08/18/2017 None Full Exam - General 1994 Ears/Nose/Throat lips/teeth/gingiva Overall: benign lips 08/18/2017 None Full Exam - General 1994 Ears/Nose/Throat oral cavity/pharynx/larynx Overall: oral mucosa clear 08/18/2017 None Full Exam - General 1994 Respiratory auscultation Overall: breath sounds clear bilaterally 08/18/2017 None Full Exam - General 1994 Respiratory respiratory effort/rhythm Overall: no retractions 08/18/2017 None Full Exam - General 1994 Respiratory respiratory effort/rhythm Overall: normal rate 08/18/2017 None Full Exam - General 1994 Cardiovascular auscultation of heart Overall: regular rate 08/18/2017 None Full Exam - General 1994 Cardiovascular auscultation of heart Overall: normal heart sounds 08/18/2017 None Full Exam - General 1994 Abdomen abdominal exam Overall: normal bowel sounds 08/18/2017 None Full Exam - General 1994 Abdomen abdominal exam Lower quadrant: tender to palpation 08/18/2017 None Full Exam - General 1994 Abdomen abdominal exam Lower quadrant: dull pain 08/18/2017 mild Full Exam - General 1994 Abdomen abdominal exam Lower quadrant: no guarding 08/18/2017 None Full Exam - General 1994 Abdomen abdominal exam Lower quadrant: no rebound tenderness 08/18/2017 None Full Exam - General 1994 Abdomen abdominal exam Lower quadrant: soft 08/18/2017 None Full Exam - General 1994 Musculoskeletal head and neck Overall: head atraumatic 08/18/2017 None Full Exam - General 1994 Neurologic cranial nerves Overall: crainial nerves 2 - 12 grossly intact 08/18/2017 None Full Exam - General 1994 Psychiatric orientation/consciousness Overall: oriented to person, place and time 08/18/2017 None Full Exam - General 1994 Psychiatric mood and affect Overall: normal mood and affect 08/18/2017 None Full Exam - General 1994 Psychiatric appearance Overall: well-groomed, good eye contact 08/18/2017 None Full Exam - General 1994 Constitutional general appearance Overall: well developed 06/12/2017 None Full Exam - General 1994 Constitutional general appearance Overall: in no acute distress 06/12/2017 None Full Exam - General 1994 Constitutional general appearance Overall: well nourished 06/12/2017 None Full Exam - General 1994 Eyes conjunctiva/eyelids Overall: conjunctiva clear 06/12/2017 None Full Exam - General 1994 Eyes conjunctiva/eyelids Overall: eyelids normal 06/12/2017 None Full Exam - General 1994 Ears/Nose/Throat otoscopic exam Overall: external auditory canals clear 06/12/2017 None Full Exam - General 1994 Ears/Nose/Throat otoscopic exam Overall: tympanic membranes clear 06/12/2017 None Full Exam - General 1994 Ears/Nose/Throat lips/teeth/gingiva Overall: benign lips 06/12/2017 None Full Exam - General 1994 Ears/Nose/Throat oral cavity/pharynx/larynx Overall: oral mucosa clear 06/12/2017 None Full Exam - General 1994 Respiratory auscultation Diffuse: diminished 06/12/2017 None Full Exam - General 1994 Respiratory respiratory effort/rhythm Overall: no retractions 06/12/2017 None Full Exam - General 1994 Respiratory respiratory effort/rhythm Overall: normal rate 06/12/2017 None Full Exam - General 1994 Cardiovascular auscultation of heart Overall: regular rate 06/12/2017 None Full Exam - General 1994 Cardiovascular auscultation of heart Overall: normal heart sounds 06/12/2017 None Full Exam - General 1994 Lymphatic neck nodes Overall: anterior cervical chain benign 06/12/2017 None Full Exam - General 1994 Lymphatic neck nodes Overall: posterior cervical chain benign 06/12/2017 None Full Exam - General 1994 Neurologic cranial nerves Overall: crainial nerves 2 - 12 grossly intact 06/12/2017 None Full Exam - General 1994 Psychiatric orientation/consciousness Overall: oriented to person, place and time 06/12/2017 None Full Exam - General 1994 Psychiatric mood and affect Overall: normal mood and affect 06/12/2017 None Full Exam - General 1994 Psychiatric appearance Overall: well-groomed, good eye contact 06/12/2017 None Full Exam - General 1994 Respiratory auscultation Lower lung field: expiratory wheezes 06/12/2017 faint Full Exam - General 1994 Constitutional general appearance Overall: well developed 05/04/2017 None Full Exam - General 1994 Constitutional general appearance Overall: in no acute distress 05/04/2017 None Full Exam - General 1994 Constitutional general appearance Overall: well nourished 05/04/2017 None Full Exam - General 1994 Eyes conjunctiva/eyelids Overall: conjunctiva clear 05/04/2017 None Full Exam - General 1994 Eyes conjunctiva/eyelids Overall: eyelids normal 05/04/2017 None Full Exam - General 1994 Ears/Nose/Throat lips/teeth/gingiva Overall: benign lips 05/04/2017 None Full Exam - General 1994 Ears/Nose/Throat oral cavity/pharynx/larynx Overall: oral mucosa clear 05/04/2017 None Full Exam - General 1994 Respiratory respiratory effort/rhythm Overall: no retractions 05/04/2017 None Full Exam - General 1994 Respiratory respiratory effort/rhythm Overall: normal rate 05/04/2017 None Full Exam - General 1994 Respiratory auscultation Overall: breath sounds clear bilaterally 05/04/2017 None Full Exam - General 1994 Cardiovascular auscultation of heart Overall: regular rate 05/04/2017 None Full Exam - General 1994 Cardiovascular auscultation of heart Overall: normal heart sounds 05/04/2017 None Full Exam - General 1994 Abdomen abdominal exam Overall: normal bowel sounds 05/04/2017 None Full Exam - General 1994 Abdomen abdominal exam Lower quadrant: tender to palpation 05/04/2017 None Full Exam - General 1994 Abdomen abdominal exam Lower quadrant: dull pain 05/04/2017 None Full Exam - General 1994 Abdomen abdominal exam Lower quadrant: no guarding 05/04/2017 None Full Exam - General 1994 Abdomen abdominal exam Lower quadrant: no rebound tenderness 05/04/2017 None Full Exam - General 1994 Abdomen abdominal exam Lower quadrant: soft 05/04/2017 None Full Exam - General 1994 Musculoskeletal head and neck Overall: head atraumatic 05/04/2017 None Full Exam - General 1994 Neurologic cranial nerves Overall: crainial nerves 2 - 12 grossly intact 05/04/2017 None Full Exam - General 1994 Psychiatric orientation/consciousness Overall: oriented to person, place and time 05/04/2017 None Full Exam - General 1994 Psychiatric mood and affect Overall: normal mood and affect 05/04/2017 None Full Exam - General 1994 Psychiatric appearance Overall: well-groomed, good eye contact 05/04/2017 None Full Exam - General 1994 Constitutional general appearance Overall: well developed 04/21/2017 None Full Exam - General 1994 Constitutional general appearance Overall: in no acute distress 04/21/2017 None Full Exam - General 1994 Constitutional general appearance Overall: well nourished 04/21/2017 None Full Exam - General 1994 Eyes conjunctiva/eyelids Overall: conjunctiva clear 04/21/2017 None Full Exam - General 1994 Eyes conjunctiva/eyelids Overall: eyelids normal 04/21/2017 None Full Exam - General 1994 Ears/Nose/Throat otoscopic exam Overall: external auditory canals clear 04/21/2017 None Full Exam - General 1994 Ears/Nose/Throat otoscopic exam Overall: tympanic membranes clear 04/21/2017 None Full Exam - General 1994 Ears/Nose/Throat lips/teeth/gingiva Overall: benign lips 04/21/2017 None Full Exam - General 1994 Ears/Nose/Throat oral cavity/pharynx/larynx Overall: oral mucosa clear 04/21/2017 None Full Exam - General 1994 Respiratory auscultation Diffuse: diminished 04/21/2017 None Full Exam - General 1994 Respiratory respiratory effort/rhythm Overall: no retractions 04/21/2017 None Full Exam - General 1994 Respiratory respiratory effort/rhythm Overall: normal rate 04/21/2017 None Full Exam - General 1994 Cardiovascular auscultation of heart Overall: regular rate 04/21/2017 None Full Exam - General 1994 Cardiovascular auscultation of heart Overall: normal heart sounds 04/21/2017 None Full Exam - General 1994 Lymphatic neck nodes Overall: anterior cervical chain benign 04/21/2017 None Full Exam - General 1994 Lymphatic neck nodes Overall: posterior cervical chain benign 04/21/2017 None Full Exam - General 1994 Neurologic cranial nerves Overall: crainial nerves 2 - 12 grossly intact 04/21/2017 None Full Exam - General 1994 Psychiatric orientation/consciousness Overall: oriented to person, place and time 04/21/2017 None Full Exam - General 1994 Psychiatric mood and affect Overall: normal mood and affect 04/21/2017 None Full Exam - General 1994 Psychiatric appearance Overall: well-groomed, good eye contact 04/21/2017 None Full Exam - General 1994 Respiratory auscultation Lower lung field: expiratory wheezes 04/21/2017 None Full Exam - General 1994 Constitutional general appearance Overall: well developed 03/03/2017 None Full Exam - General 1994 Constitutional general appearance Overall: in no acute distress 03/03/2017 None Full Exam - General 1994 Constitutional general appearance Overall: well nourished 03/03/2017 None Full Exam - General 1994 Eyes conjunctiva/eyelids Overall: conjunctiva clear 03/03/2017 None Full Exam - General 1994 Eyes conjunctiva/eyelids Overall: eyelids normal 03/03/2017 None Full Exam - General 1994 Ears/Nose/Throat otoscopic exam Overall: external auditory canals clear 03/03/2017 None Full Exam - General 1994 Ears/Nose/Throat otoscopic exam Overall: tympanic membranes clear 03/03/2017 None Full Exam - General 1994 Ears/Nose/Throat lips/teeth/gingiva Overall: benign lips 03/03/2017 None Full Exam - General 1994 Ears/Nose/Throat oral cavity/pharynx/larynx Overall: oral mucosa clear 03/03/2017 None Full Exam - General 1994 Respiratory auscultation Lower lung field: expiratory wheezes 03/03/2017 None Full Exam - General 1994 Respiratory auscultation Diffuse: diminished 03/03/2017 None Full Exam - General 1994 Respiratory respiratory effort/rhythm Overall: no retractions 03/03/2017 None Full Exam - General 1994 Respiratory respiratory effort/rhythm Overall: normal rate 03/03/2017 None Full Exam - General 1994 Cardiovascular auscultation of heart Overall: regular rate 03/03/2017 None Full Exam - General 1994 Cardiovascular auscultation of heart Overall: normal heart sounds 03/03/2017 None Full Exam - General 1994 Lymphatic neck nodes Overall: posterior cervical chain benign 03/03/2017 None Full Exam - General 1994 Lymphatic neck nodes Overall: anterior cervical chain benign 03/03/2017 None Full Exam - General 1994 Neurologic cranial nerves Overall: crainial nerves 2 - 12 grossly intact 03/03/2017 None Full Exam - General 1994 Psychiatric orientation/consciousness Overall: oriented to person, place and time 03/03/2017 None Full Exam - General 1994 Psychiatric mood and affect Overall: normal mood and affect 03/03/2017 None Full Exam - General 1994 Psychiatric appearance Overall: well-groomed, good eye contact 03/03/2017 None Full Exam - General 1994 Constitutional general appearance Overall: well developed 02/13/2017 None Full Exam - General 1994 Constitutional general appearance Overall: in no acute distress 02/13/2017 None Full Exam - General 1994 Constitutional general appearance Overall: well nourished 02/13/2017 None Full Exam - General 1994 Eyes conjunctiva/eyelids Overall: conjunctiva clear 02/13/2017 None Full Exam - General 1994 Eyes conjunctiva/eyelids Overall: eyelids normal 02/13/2017 None Full Exam - General 1994 Ears/Nose/Throat otoscopic exam Overall: external auditory canals clear 02/13/2017 None Full Exam - General 1994 Ears/Nose/Throat otoscopic exam Overall: tympanic membranes clear 02/13/2017 None Full Exam - General 1994 Ears/Nose/Throat lips/teeth/gingiva Overall: benign lips 02/13/2017 None Full Exam - General 1994 Ears/Nose/Throat oral cavity/pharynx/larynx Overall: oral mucosa clear 02/13/2017 None Full Exam - General 1994 Ears/Nose/Throat oral cavity/pharynx/larynx Posterior Pharynx: clear post nasal drainage 02/13/2017 None Full Exam - General 1994 Ears/Nose/Throat oral cavity/pharynx/larynx Oropharynx: erythema 02/13/2017 None Full Exam - General 1994 Respiratory auscultation Diffuse: diminished 02/13/2017 None Full Exam - General 1994 Respiratory auscultation Right lower lung field: expiratory wheezes 02/13/2017 faint Full Exam - General 1994 Respiratory respiratory effort/rhythm Overall: no retractions 02/13/2017 None Full Exam - General 1994 Respiratory respiratory effort/rhythm Overall: normal rate 02/13/2017 None Full Exam - General 1994 Cardiovascular auscultation of heart Overall: regular rate 02/13/2017 None Full Exam - General 1994 Cardiovascular auscultation of heart Overall: normal heart sounds 02/13/2017 None Full Exam - General 1994 Lymphatic neck nodes Overall: anterior cervical chain benign 02/13/2017 None Full Exam - General 1994 Lymphatic neck nodes Overall: posterior cervical chain benign 02/13/2017 None Full Exam - General 1994 Musculoskeletal gait and station Overall: normal gait 02/13/2017 None Full Exam - General 1994 Musculoskeletal gait and station Overall: normal station 02/13/2017 None Full Exam - General 1994 Musculoskeletal head and neck Overall: head atraumatic 02/13/2017 None Full Exam - General 1994 Neurologic cranial nerves Overall: crainial nerves 2 - 12 grossly intact 02/13/2017 None Full Exam - General 1994 Psychiatric orientation/consciousness Overall: oriented to person, place and time 02/13/2017 None Full Exam - General 1994 Psychiatric mood and affect Overall: normal mood and affect 02/13/2017 None Full Exam - ENT Constitutional general appearance Overall: well nourished 02/09/2017 None Full Exam - ENT Constitutional general appearance Overall: well developed 02/09/2017 None Full Exam - ENT Constitutional general appearance Overall: in no acute distress 02/09/2017 None Full Exam - ENT Ears/Nose/Throat otoscopic exam Overall: external auditory canals normal 02/09/2017 None Full Exam - ENT Ears/Nose/Throat otoscopic exam Left tympanic membrane: air-fluid level 02/09/2017 None Full Exam - ENT Ears/Nose/Throat otoscopic exam Right tympanic membrane: air-fluid level 02/09/2017 None Full Exam - ENT Ears/Nose/Throat nasal mucosa, septum, turbinates Drainage: clear 02/09/2017 None Full Exam - ENT Ears/Nose/Throat nasal mucosa, septum, turbinates Drainage: yellow 02/09/2017 None Full Exam - ENT Ears/Nose/Throat lips/teeth/gingiva Overall: benign lips 02/09/2017 None Full Exam - ENT Ears/Nose/Throat oropharynx Posterior Pharynx: clear post nasal drainage 02/09/2017 None Full Exam - ENT Face and Head palpation Left maxillary sinus: tender 02/09/2017 None Full Exam - ENT Face and Head palpation Right maxillary sinus: tender 02/09/2017 None Full Exam - ENT Respiratory inspection Overall: no retractions 02/09/2017 None Full Exam - ENT Respiratory inspection Overall: normal rate 02/09/2017 None Full Exam - ENT Respiratory auscultation Overall: breath sounds clear bilaterally 02/09/2017 None Full Exam - ENT Cardiovascular auscultation of heart Overall: regular rate 02/09/2017 None Full Exam - ENT Cardiovascular auscultation of heart Overall: normal heart sounds 02/09/2017 None Full Exam - ENT Lymphatic palpation of lymph nodes Overall: anterior cervical chain benign 02/09/2017 None Full Exam - ENT Lymphatic palpation of lymph nodes Overall: posterior cervical chain benign 02/09/2017 None Full Exam - ENT Neurologic mood and affect Overall: normal mood 02/09/2017 None Full Exam - ENT Neurologic mood and affect Overall: normal affect 02/09/2017 None Full Exam - ENT Neurologic orientation Overall: oriented to person, place and time 02/09/2017 None Full Exam - ENT Ears/Nose/Throat oropharynx Posterior Pharynx: erythema 02/09/2017 None Full Exam - ENT Constitutional general appearance Overall: well nourished 12/14/2016 None Full Exam - ENT Constitutional general appearance Overall: well developed 12/14/2016 None Full Exam - ENT Constitutional general appearance Overall: in no acute distress 12/14/2016 None Full Exam - ENT Ears/Nose/Throat otoscopic exam Overall: external auditory canals normal 12/14/2016 None Full Exam - ENT Ears/Nose/Throat otoscopic exam Overall: tympanic membranes normal 12/14/2016 None Full Exam - ENT Ears/Nose/Throat lips/teeth/gingiva Overall: benign lips 12/14/2016 None Full Exam - ENT Ears/Nose/Throat oropharynx Overall: oral mucosa clear 12/14/2016 None Full Exam - ENT Respiratory inspection Overall: no retractions 12/14/2016 None Full Exam - ENT Respiratory inspection Overall: normal rate 12/14/2016 None Full Exam - ENT Respiratory auscultation Overall: breath sounds clear bilaterally 12/14/2016 None Full Exam - ENT Cardiovascular auscultation of heart Overall: regular rate 12/14/2016 None Full Exam - ENT Cardiovascular auscultation of heart Overall: normal heart sounds 12/14/2016 None Full Exam - ENT Neurologic mood and affect Overall: normal mood 12/14/2016 None Full Exam - ENT Neurologic mood and affect Overall: normal affect 12/14/2016 None Full Exam - ENT Neurologic orientation Overall: oriented to person, place and time 12/14/2016 None Full Exam - General 1994 Constitutional general appearance Overall: well developed 12/05/2016 None Full Exam - General 1994 Constitutional general appearance Overall: in no acute distress 12/05/2016 None Full Exam - General 1994 Constitutional general appearance Overall: well nourished 12/05/2016 None Full Exam - General 1994 Eyes conjunctiva/eyelids Overall: conjunctiva clear 12/05/2016 None Full Exam - General 1994 Eyes conjunctiva/eyelids Overall: eyelids normal 12/05/2016 None Full Exam - General 1994 Ears/Nose/Throat otoscopic exam Overall: external auditory canals clear 12/05/2016 None Full Exam - General 1994 Ears/Nose/Throat otoscopic exam Tympanic membrane: air-fluid level 12/05/2016 None Full Exam - General 1994 Ears/Nose/Throat lips/teeth/gingiva Overall: benign lips 12/05/2016 None Full Exam - General 1994 Ears/Nose/Throat oral cavity/pharynx/larynx Overall: oral mucosa clear 12/05/2016 None Full Exam - General 1994 Ears/Nose/Throat oral cavity/pharynx/larynx Posterior Pharynx: clear post nasal drainage 12/05/2016 None Full Exam - General 1994 Respiratory auscultation Lower lung field: expiratory wheezes 12/05/2016 None Full Exam - General 1994 Respiratory respiratory effort/rhythm Overall: no retractions 12/05/2016 None Full Exam - General 1994 Respiratory respiratory effort/rhythm Overall: normal rate 12/05/2016 None Full Exam - General 1994 Cardiovascular auscultation of heart Overall: regular rate 12/05/2016 None Full Exam - General 1994 Cardiovascular auscultation of heart Overall: normal heart sounds 12/05/2016 None Full Exam - General 1994 Lymphatic neck nodes Overall: anterior cervical chain benign 12/05/2016 None Full Exam - General 1994 Lymphatic neck nodes Overall: posterior cervical chain benign 12/05/2016 None Full Exam - General 1994 Neurologic gait Overall: no ataxia, no unsteadiness 12/05/2016 None Full Exam - General 1994 Neurologic cranial nerves Overall: crainial nerves 2 - 12 grossly intact 12/05/2016 None Full Exam - General 1994 Psychiatric orientation/consciousness Overall: oriented to person, place and time 12/05/2016 None Full Exam - General 1994 Psychiatric mood and affect Overall: normal mood and affect 12/05/2016 None Full Exam - General 1994 Psychiatric appearance Overall: well-groomed, good eye contact 12/05/2016 None Full Exam - General 1994 Ears/Nose/Throat oral cavity/pharynx/larynx Oropharynx: erythema 12/05/2016 None Full Exam - General 1994 Constitutional general appearance Overall: well developed 09/23/2016 None Full Exam - General 1994 Constitutional general appearance Overall: in no acute distress 09/23/2016 None Full Exam - General 1994 Constitutional general appearance Overall: well nourished 09/23/2016 None Full Exam - General 1994 Eyes conjunctiva/eyelids Overall: conjunctiva clear 09/23/2016 None Full Exam - General 1994 Eyes conjunctiva/eyelids Overall: eyelids normal 09/23/2016 None Full Exam - General 1994 Ears/Nose/Throat otoscopic exam Overall: external auditory canals clear 09/23/2016 None Full Exam - General 1994 Ears/Nose/Throat lips/teeth/gingiva Overall: benign lips 09/23/2016 None Full Exam - General 1994 Ears/Nose/Throat oral cavity/pharynx/larynx Overall: oral mucosa clear 09/23/2016 None Full Exam - General 1994 Respiratory respiratory effort/rhythm Overall: no retractions 09/23/2016 None Full Exam - General 1994 Respiratory respiratory effort/rhythm Overall: normal rate 09/23/2016 None Full Exam - General 1994 Cardiovascular auscultation of heart Overall: regular rate 09/23/2016 None Full Exam - General 1994 Cardiovascular auscultation of heart Overall: normal heart sounds 09/23/2016 None Full Exam - General 1994 Lymphatic neck nodes Overall: anterior cervical chain benign 09/23/2016 None Full Exam - General 1994 Lymphatic neck nodes Overall: posterior cervical chain benign 09/23/2016 None Full Exam - General 1994 Neurologic cranial nerves Overall: crainial nerves 2 - 12 grossly intact 09/23/2016 None Full Exam - General 1994 Psychiatric orientation/consciousness Overall: oriented to person, place and time 09/23/2016 None Full Exam - General 1994 Psychiatric mood and affect Overall: normal mood and affect 09/23/2016 None Full Exam - General 1994 Psychiatric appearance Overall: well-groomed, good eye contact 09/23/2016 None Full Exam - General 1994 Eyes pupils and irises Overall: pupils equal, round, reactive to light and accomodation 09/23/2016 None Full Exam - General 1994 Ears/Nose/Throat otoscopic exam Tympanic membrane: air-fluid level 09/23/2016 None Full Exam - General 1994 Ears/Nose/Throat oral cavity/pharynx/larynx Posterior Pharynx: clear post nasal drainage 09/23/2016 None Full Exam - General 1994 Respiratory auscultation Lower lung field: expiratory wheezes 09/23/2016 None Full Exam - General 1994 Neurologic gait Overall: no ataxia, no unsteadiness 09/23/2016 None Full Exam - General 1994 Constitutional general appearance Overall: well developed 09/14/2016 None Full Exam - General 1994 Constitutional general appearance Overall: in no acute distress 09/14/2016 None Full Exam - General 1994 Constitutional general appearance Overall: well nourished 09/14/2016 None Full Exam - General 1994 Eyes conjunctiva/eyelids Overall: conjunctiva clear 09/14/2016 None Full Exam - General 1994 Eyes conjunctiva/eyelids Overall: eyelids normal 09/14/2016 None Full Exam - General 1994 Ears/Nose/Throat otoscopic exam Overall: external auditory canals clear 09/14/2016 None Full Exam - General 1994 Ears/Nose/Throat otoscopic exam Overall: tympanic membranes clear 09/14/2016 None Full Exam - General 1994 Ears/Nose/Throat lips/teeth/gingiva Overall: benign lips 09/14/2016 None Full Exam - General 1994 Ears/Nose/Throat oral cavity/pharynx/larynx Overall: oral mucosa clear 09/14/2016 None Full Exam - General 1994 Respiratory auscultation Overall: breath sounds clear bilaterally 09/14/2016 None Full Exam - General 1994 Respiratory respiratory effort/rhythm Overall: no retractions 09/14/2016 None Full Exam - General 1994 Respiratory respiratory effort/rhythm Overall: normal rate 09/14/2016 None Full Exam - General 1994 Cardiovascular auscultation of heart Overall: regular rate 09/14/2016 None Full Exam - General 1994 Cardiovascular auscultation of heart Overall: normal heart sounds 09/14/2016 None Full Exam - General 1994 Lymphatic neck nodes Overall: anterior cervical chain benign 09/14/2016 None Full Exam - General 1994 Lymphatic neck nodes Overall: posterior cervical chain benign 09/14/2016 None Full Exam - General 1994 Neurologic cranial nerves Overall: crainial nerves 2 - 12 grossly intact 09/14/2016 None Full Exam - General 1994 Psychiatric orientation/consciousness Overall: oriented to person, place and time 09/14/2016 None Full Exam - General 1994 Psychiatric mood and affect Overall: normal mood and affect 09/14/2016 None Full Exam - General 1994 Psychiatric appearance Overall: well-groomed, good eye contact 09/14/2016 None Full Exam - General 1994 Constitutional general appearance Overall: well developed 07/08/2016 None Full Exam - General 1994 Constitutional general appearance Overall: in no acute distress 07/08/2016 None Full Exam - General 1994 Constitutional general appearance Overall: well nourished 07/08/2016 None Full Exam - General 1994 Eyes conjunctiva/eyelids Overall: conjunctiva clear 07/08/2016 None Full Exam - General 1994 Ears/Nose/Throat otoscopic exam Overall: external auditory canals clear 07/08/2016 None Full Exam - General 1994 Ears/Nose/Throat lips/teeth/gingiva Overall: benign lips 07/08/2016 None Full Exam - General 1994 Ears/Nose/Throat oral cavity/pharynx/larynx Overall: oral mucosa clear 07/08/2016 None Full Exam - General 1994 Respiratory respiratory effort/rhythm Overall: no retractions 07/08/2016 None Full Exam - General 1994 Respiratory respiratory effort/rhythm Overall: normal rate 07/08/2016 None Full Exam - General 1994 Cardiovascular extremities Overall: no clubbing 07/08/2016 None Full Exam - General 1994 Cardiovascular auscultation of heart Overall: regular rate 07/08/2016 None Full Exam - General 1994 Cardiovascular auscultation of heart Overall: normal heart sounds 07/08/2016 None Full Exam - General 1994 Musculoskeletal spine, ribs and pelvis Overall: good posture 07/08/2016 None Full Exam - General 1994 Musculoskeletal gait and station Overall: normal gait 07/08/2016 None Full Exam - General 1994 Musculoskeletal gait and station Overall: normal station 07/08/2016 None Full Exam - General 1994 Musculoskeletal head and neck Overall: head atraumatic 07/08/2016 None Full Exam - General 1994 Integument inspection of skin Overall: no rash, lesions 07/08/2016 None Full Exam - General 1994 Neurologic gait Overall: no ataxia, no unsteadiness 07/08/2016 None Full Exam - General 1994 Neurologic cranial nerves Overall: crainial nerves 2 - 12 grossly intact 07/08/2016 None Full Exam - General 1994 Psychiatric orientation/consciousness Overall: oriented to person, place and time 07/08/2016 None Full Exam - General 1994 Psychiatric mood and affect Overall: normal mood and affect 07/08/2016 None Full Exam - General 1994 Psychiatric appearance Overall: well-groomed, good eye contact 07/08/2016 None Full Exam - General 1994 Ears/Nose/Throat otoscopic exam Tympanic membrane: air-fluid level 07/08/2016 None Full Exam - General 1994 Ears/Nose/Throat oral cavity/pharynx/larynx Posterior Pharynx: clear post nasal drainage 07/08/2016 None Full Exam - General 1994 Ears/Nose/Throat internal nose Drainage: clear 07/08/2016 None Full Exam - General 1994 Respiratory auscultation Lower lung field: expiratory wheezes 07/08/2016 None Full Exam - General 1994 Constitutional general appearance Overall: well developed 06/17/2016 None Full Exam - General 1994 Constitutional general appearance Overall: in no acute distress 06/17/2016 None Full Exam - General 1994 Constitutional general appearance Overall: well nourished 06/17/2016 None Full Exam - General 1994 Eyes pupils and irises Overall: pupils equal, round, reactive to light and accomodation 06/17/2016 None Full Exam - General 1994 Eyes conjunctiva/eyelids Overall: conjunctiva clear 06/17/2016 None Full Exam - General 1994 Ears/Nose/Throat lips/teeth/gingiva Overall: benign lips 06/17/2016 None Full Exam - General 1994 Ears/Nose/Throat oral cavity/pharynx/larynx Overall: oral mucosa clear 06/17/2016 None Full Exam - General 1994 Ears/Nose/Throat oral cavity/pharynx/larynx Overall: oropharyngeal mucosa clear 06/17/2016 None Full Exam - General 1994 Ears/Nose/Throat oral cavity/pharynx/larynx Overall: no masses 06/17/2016 None Full Exam - General 1994 Ears/Nose/Throat otoscopic exam Overall: external auditory canals clear 06/17/2016 None Full Exam - General 1994 Ears/Nose/Throat otoscopic exam Overall: tympanic membranes clear 06/17/2016 None Full Exam - General 1994 Respiratory auscultation Overall: breath sounds clear bilaterally 06/17/2016 None Full Exam - General 1994 Respiratory respiratory effort/rhythm Overall: no retractions 06/17/2016 None Full Exam - General 1994 Respiratory respiratory effort/rhythm Overall: normal rate 06/17/2016 None Full Exam - General 1994 Cardiovascular extremities Overall: no clubbing 06/17/2016 None Full Exam - General 1994 Cardiovascular auscultation of heart Overall: regular rate 06/17/2016 None Full Exam - General 1994 Cardiovascular auscultation of heart Overall: normal heart sounds 06/17/2016 None Full Exam - General 1994 Abdomen abdominal exam Overall: no tenderness 06/17/2016 None Full Exam - General 1994 Abdomen abdominal exam Overall: normal bowel sounds 06/17/2016 None Full Exam - General 1994 Lymphatic neck nodes Overall: posterior cervical chain benign 06/17/2016 None Full Exam - General 1994 Lymphatic neck nodes Overall: anterior cervical chain benign 06/17/2016 None Full Exam - General 1994 Genitourinary cervix Overall: no discharge 06/17/2016 None Full Exam - General 1994 Genitourinary labia and vagina Overall: normal hair distribution 06/17/2016 None Full Exam - General 1994 Genitourinary labia and vagina Overall: no lesions 06/17/2016 None Full Exam - General 1994 Genitourinary adnexa/parametria Overall: no tenderness 06/17/2016 None Full Exam - General 1994 Genitourinary urethra Overall: no masses 06/17/2016 None Full Exam - General 1994 Genitourinary bladder Overall: no tenderness 06/17/2016 None Full Exam - General 1994 Genitourinary cervix Inspection: normal os 06/17/2016 None Full Exam - General 1994 Genitourinary cervix Inspection: no lesions 06/17/2016 None Full Exam - General 1994 Genitourinary uterus Overall: normal size 06/17/2016 None Full Exam - General 1994 Chest/Breast breast and axillae palpation Overall: breasts non- tender 06/17/2016 None Full Exam - General 1994 Chest/Breast breast and axillae palpation Overall: axillae non- tender 06/17/2016 None Full Exam - General 1994 Chest/Breast breast and axillae palpation Overall: no nipple discharge 06/17/2016 None Full Exam - General 1994 Musculoskeletal gait and station Overall: normal station 06/17/2016 None Full Exam - General 1994 Musculoskeletal gait and station Overall: normal gait 06/17/2016 None Full Exam - General 1994 Musculoskeletal spine, ribs and pelvis Overall: good posture 06/17/2016 None Full Exam - General 1994 Musculoskeletal head and neck Overall: head atraumatic 06/17/2016 None Full Exam - General 1994 Integument inspection of skin Overall: no rash, lesions 06/17/2016 None Full Exam - General 1994 Neurologic cranial nerves Overall: crainial nerves 2 - 12 grossly intact 06/17/2016 None Full Exam - General 1994 Neurologic gait Overall: no ataxia, no unsteadiness 06/17/2016 None Full Exam - General 1994 Psychiatric orientation/consciousness Overall: oriented to person, place and time 06/17/2016 None Full Exam - General 1994 Psychiatric mood and affect Overall: normal mood and affect 06/17/2016 None Full Exam - General 1994 Psychiatric appearance Overall: well-groomed, good eye contact 06/17/2016 None Full Exam - General 1994 Psychiatric speech Overall: normal quality, no aphasia 06/17/2016 None Full Exam - General 1994 Psychiatric speech Overall: normal quality, quantity, rate 06/17/2016 None Procedures No Procedures data Vital Signs Date Vital 03/21/2019 Blood Pressure 1: 142/80 Code: 8480-6 BMI: 29.2 Code: 16046-2 Heart Rate 1: 107 bpm Height: 5'4" SpO2: 95% Temperature: 36.8 (C) / 98.2 (F) Weight: 170 lbs 02/25/2019 Blood Pressure 1: 142/76 Code: 8480-6 Heart Rate 1: 105 bpm Height: SpO2: 98% Temperature: 37.2 (C) / 99.0 (F) Weight: 02/08/2019 Blood Pressure 1: 122/76 Code: 8480-6 BMI: 28.8 Code: 11602-0 Heart Rate 1: 94 bpm Height: 5'4" SpO2: 98% Weight: 168 lbs 02/05/2019 Blood Pressure 1: 126/70 Code: 8480-6 BMI: 28.5 Code: 07954-3 Heart Rate 1: 90 bpm Height: 5'4" SpO2: 98% Weight: 166 lbs 01/23/2019 Blood Pressure 1: 122/64 Code: 8480-6 BMI: 28.8 Code: 31931-1 Heart Rate 1: 105 bpm Height: 5'4" SpO2: 98% Weight: 168 lbs 01/09/2019 Blood Pressure 1: 134/80 Code: 8480-6 BMI: 28.8 Code: 01302-5 Heart Rate 1: 98 bpm Height: 5'4" SpO2: 100% Weight: 168 lbs 10/05/2018 Blood Pressure 1: 150/84 Code: 8480-6 BMI: 29.9 Code: 35184-4 Heart Rate 1: 78 bpm Height: 5'4" SpO2: 91% Weight: 174 lbs 08/20/2018 Blood Pressure 1: 142/86 Code: 8480-6 BMI: 29.9 Code: 13507-3 Heart Rate 1: 79 bpm Height: 5'4" SpO2: 98% Weight: 174 lbs 07/24/2018 Blood Pressure 1: 150/84 Code: 8480-6 BMI: 29.9 Code: 36124-0 Heart Rate 1: 116 bpm Height: 5'4" SpO2: 96% Temperature: 37.0 (C) / 98.6 (F) Weight: 174 lbs 05/07/2018 Blood Pressure 1: 130/80 Code: 8480-6 BMI: 29.9 Code: 22968-0 Heart Rate 1: 93 bpm Height: 5'4" SpO2: 95% Weight: 174 lbs 04/20/2018 Blood Pressure 1: 134/70 Code: 8480-6 Heart Rate 1: 86 bpm Height: SpO2: 98% Weight: 04/09/2018 Blood Pressure 1: 132/76 Code: 8480-6 BMI: 29.5 Code: 42019-3 Heart Rate 1: 80 bpm Height: 5'4" SpO2: 98% Weight: 172 lbs 12/08/2017 Blood Pressure 1: 148/76 Code: 8480-6 BMI: 29.9 Code: 08014-7 Heart Rate 1: 97 bpm Height: 5'4" SpO2: 97% Weight: 174 lbs 12/01/2017 Blood Pressure 1: 124/74 Code: 8480-6 BMI: 29.9 Code: 66385-3 Heart Rate 1: 110 bpm Height: 5'4" SpO2: 97% Temperature: 37.4 (C) / 99.4 (F) Weight: 174 lbs 10/10/2017 Blood Pressure 1: 128/80 Code: 8480-6 BMI: 29.8 Code: 95301-5 Heart Rate 1: 91 bpm Height: 5'4" SpO2: 98% Temperature: 36.5 (C) / 97.7 (F) Weight: 173 lbs 8 oz 09/20/2017 Blood Pressure 1: 152/88 Code: 8480-6 BMI: 29.9 Code: 92998-8 Heart Rate 1: 87 bpm Height: 5'4" SpO2: 96% Weight: 174 lbs 09/12/2017 Blood Pressure 1: 134/74 Code: 8480-6 BMI: 29.9 Code: 16028-1 Heart Rate 1: 90 bpm Height: 5'4" SpO2: 96% Weight: 174 lbs 08/18/2017 Blood Pressure 1: 128/68 Code: 8480-6 Heart Rate 1: 88 bpm Height: SpO2: 97% Weight: 06/12/2017 Blood Pressure 1: 130/70 Code: 8480-6 BMI: 29.2 Code: 65725-5 Heart Rate 1: 94 bpm Height: 5'4" SpO2: 95% Weight: 170 lbs 05/04/2017 Blood Pressure 1: 138/80 Code: 8480-6 BMI: 29.9 Code: 85368-2 Heart Rate 1: 84 bpm Height: 5'4" SpO2: 97% Weight: 174 lbs 04/21/2017 Blood Pressure 1: 130/72 Code: 8480-6 BMI: 29.9 Code: 48964-5 Heart Rate 1: 90 bpm Height: 5'4" SpO2: 96% Weight: 174 lbs 03/03/2017 Blood Pressure 1: 136/78 Code: 8480-6 BMI: 29.9 Code: 26050-1 Heart Rate 1: 91 bpm Height: 5'4" SpO2: 96% Weight: 174 lbs 02/13/2017 Blood Pressure 1: 116/74 Code: 8480-6 BMI: 29.2 Code: 07284-0 Heart Rate 1: 91 bpm Height: 5'4" SpO2: 94% Weight: 170 lbs 02/09/2017 Blood Pressure 1: 120/72 Code: 8480-6 BMI: 29.0 Code: 19546-7 Heart Rate 1: 100 bpm Height: 5'4" SpO2: 97% Temperature: 37.4 (C) / 99.3 (F) Weight: 169 lbs 12/14/2016 Blood Pressure 1: 130/72 Code: 8480-6 BMI: 29.5 Code: 56850-4 Heart Rate 1: 100 bpm Height: 5'4" SpO2: 95% Weight: 172 lbs 12/05/2016 Blood Pressure 1: 136/78 Code: 8480-6 BMI: 29.2 Code: 92575-0 Heart Rate 1: 117 bpm Height: 5'4" SpO2: 97% Weight: 170 lbs 09/23/2016 Blood Pressure 1: 130/74 Code: 8480-6 BMI: 30.2 Code: 47071-9 Heart Rate 1: 102 bpm Height: 5'4" SpO2: 94% Weight: 176 lbs 09/14/2016 Blood Pressure 1: 128/74 Code: 8480-6 BMI: 29.4 Code: 96743-9 Heart Rate 1: 90 bpm Height: 5'4" SpO2: 97% Weight: 171 lbs 07/08/2016 Blood Pressure 1: 118/64 Code: 8480-6 BMI: 28.8 Code: 67676-3 Heart Rate 1: 115 bpm Height: 5'4" SpO2: 97% Weight: 168 lbs 06/17/2016 Blood Pressure 1: 144/86 Code: 8480-6 BMI: 29.5 Code: 72604-7 Heart Rate 1: 94 bpm Height: 5'4" SpO2: 96% Weight: 172 lbs Functional Status No Functional Status data History of Present Illness Symptom Name Status Result Effective Date Notes Quality acute 03/21/2019 None Quality intermittent 03/21/2019 None Quality productive 03/21/2019 None Location in the bilateral maxillary sinuses 03/21/2019 None Location in the bilateral frontal sinuses 03/21/2019 None Quality acute 03/21/2019 None Quality pressure 03/21/2019 None Quality fullness 03/21/2019 None Onset and Resolution sudden in onset 03/21/2019 None Pertinent Findings cough 03/21/2019 None Pertinent Findings fever 03/21/2019 None Pertinent Findings ill contacts 03/21/2019 None Pertinent Findings sputum production 03/21/2019 None Pertinent Findings fever 03/21/2019 None Quality pain 03/21/2019 None Pertinent Findings post nasal drip 03/21/2019 None Quality white 03/21/2019 None Quality green 03/21/2019 None Onset of Symptom 4 days ago 03/21/2019 None Location in the lung 02/25/2019 None Quality constant 02/25/2019 None Quality hacking 02/25/2019 None Onset and Resolution sudden in onset 02/25/2019 None Location maxillary sinuses 02/08/2019 None Quality chronic 02/08/2019 None Onset and Resolution ongoing 02/08/2019 None Pertinent Findings Denies fever 02/08/2019 None Location-Extremities on the left ankle 02/08/2019 None Quality acute 02/08/2019 None Color Denies erythematous 02/08/2019 None Pertinent Findings Denies nausea 02/08/2019 None Pertinent Findings Denies fever 02/08/2019 None Quality acute 02/05/2019 None Quality intermittent 02/05/2019 None Onset and Resolution ongoing 02/05/2019 None Pertinent Findings fever 02/05/2019 None Pertinent Findings Denies nausea 02/05/2019 None Onset and Resolution sudden in onset 01/23/2019 None Onset of Symptom _ weeks ago 01/23/2019 None Location on both ankles 01/23/2019 None Quality constant 01/23/2019 None Onset of Symptom _ weeks ago 01/09/2019 None Location in the throat 10/05/2018 None Quality productive 10/05/2018 None Onset and Resolution sudden in onset 10/05/2018 None Onset of Symptom 4 days ago 10/05/2018 None Limitation on Activities does not limit activities 10/05/2018 None Pertinent Findings chest discomfort 10/05/2018 None Pertinent Findings dyspnea 10/05/2018 None Pertinent Findings Denies fever 10/05/2018 None Pertinent Findings Denies hoarseness 10/05/2018 None abdominal pain Location in the LLQ 08/20/2018 None abdominal pain Quality aching 08/20/2018 None abdominal pain Onset and Resolution sudden in onset 08/20/2018 None abdominal pain Onset of Symptom 1 weeks ago 08/20/2018 None sinus congestion Location frontal sinuses 07/24/2018 None sinus congestion Quality constant 07/24/2018 None sinus congestion Quality pressure 07/24/2018 None sinus congestion Onset and Resolution sudden in onset 07/24/2018 None sinus congestion Onset of Symptom 2 days ago 07/24/2018 None sinus congestion Frequency of Episodes daily 07/24/2018 None cough Location in the throat 07/24/2018 None cough Quality constant 07/24/2018 None cough Onset and Resolution sudden in onset 07/24/2018 None cough Onset of Symptom 2 days ago 07/24/2018 None sore throat Location diffusely 07/24/2018 None sore throat Quality constant 07/24/2018 None sore throat Quality scratchy 07/24/2018 None sore throat Quality aching 07/24/2018 None sore throat Onset and Resolution sudden in onset 07/24/2018 None sore throat Onset of Symptom 2 days ago 07/24/2018 None headache Location diffusely 07/24/2018 None headache Quality aching 07/24/2018 None headache Quality pressure 07/24/2018 None headache Onset and Resolution sudden in onset 07/24/2018 None headache Onset of Symptom 2 days ago 07/24/2018 None rash Location-Major on the chest 05/07/2018 None rash Location-Major on the back 05/07/2018 None rash Color red 05/07/2018 None rash Onset and Resolution sudden in onset 05/07/2018 None rash Onset of Symptom 5 days ago 05/07/2018 None rash Pertinent Findings tenderness 05/07/2018 None rash Pertinent Findings itching 05/07/2018 None fever Quality acute 04/20/2018 None fever Onset and Resolution sudden in onset 04/20/2018 None fever Onset of Symptom 1 days ago 04/20/2018 None fever Temperature 101 degrees 04/20/2018 None fever Pertinent Findings nausea 04/20/2018 None fever Pertinent Findings Denies dyspnea 04/20/2018 None fever Pertinent Findings cough 04/20/2018 None fever Pertinent Findings Denies chills 04/20/2018 None cough Location in the lung 04/20/2018 None cough Quality acute 04/20/2018 None cough Quality intermittent 04/20/2018 None cough Pertinent Findings Denies dyspnea 04/20/2018 None cellulitis Location left great toe 04/09/2018 None cellulitis Quality acute 04/09/2018 None cellulitis Onset and Resolution sudden in onset 04/09/2018 None cellulitis Onset of Symptom 3 days ago 04/09/2018 None cellulitis Limitation on Activities does not limit activities 04/09/2018 None cellulitis Pertinent Findings Denies fever 04/09/2018 None sinus congestion Location frontal sinuses 12/08/2017 None sinus congestion Quality fullness 12/08/2017 None sinus congestion Quality pressure 12/08/2017 None sinus congestion Onset and Resolution sudden in onset 12/08/2017 None sinus congestion Onset of Symptom 2 days ago 12/08/2017 None sinus congestion Frequency of Episodes daily 12/08/2017 None cough Location in the lung 12/08/2017 None cough Quality constant 12/08/2017 None cough Onset and Resolution ongoing 12/08/2017 None sinus congestion Location frontal sinuses 12/01/2017 None sinus congestion Quality fullness 12/01/2017 None sinus congestion Quality pressure 12/01/2017 None sinus congestion Onset and Resolution sudden in onset 12/01/2017 None sinus congestion Onset of Symptom 2 days ago 12/01/2017 None sinus congestion Frequency of Episodes daily 12/01/2017 None cough Quality intermittent 10/10/2017 None cough Quality productive 10/10/2017 None cough Onset and Resolution ongoing 10/10/2017 None cough Significant Medical Conditions asthma 10/10/2017 None cough Pertinent Findings chills 10/10/2017 this past weekend cough Pertinent Findings fever 10/10/2017 (intermittent) cough Pertinent Findings sputum production 10/10/2017 (whitish) chest congestion Quality constant 09/20/2017 None chest congestion Quality thick secretions 09/20/2017 None chest congestion Onset and Resolution sudden in onset 09/20/2017 None cough Location in the throat 09/12/2017 None cough Quality constant 09/12/2017 None cough Quality hacking 09/12/2017 None cough Onset and Resolution ongoing 09/12/2017 None nasal allergies Onset and Resolution ongoing 09/12/2017 None nasal allergies Pertinent Findings Denies fever 09/12/2017 None abdominal pain Location in the LLQ 08/18/2017 None abdominal pain Quality acute 08/18/2017 None abdominal pain Quality dull 08/18/2017 None abdominal pain Onset and Resolution sudden in onset 08/18/2017 None abdominal pain Limitation on Activities does not limit activities 08/18/2017 None abdominal pain Pertinent Findings Denies dyspnea 08/18/2017 None cough Location in the throat 06/12/2017 None cough Quality constant 06/12/2017 None cough Quality hacking 06/12/2017 None cough Onset and Resolution ongoing 06/12/2017 None nasal allergies Onset and Resolution ongoing 06/12/2017 None nasal allergies Pertinent Findings Denies fever 06/12/2017 None abdominal pain Location in the LLQ 05/04/2017 None abdominal pain Quality acute 05/04/2017 None abdominal pain Quality dull 05/04/2017 None abdominal pain Onset and Resolution sudden in onset 05/04/2017 None abdominal pain Limitation on Activities does not limit activities 05/04/2017 None abdominal pain Pertinent Findings Denies dyspnea 05/04/2017 None cough Location in the throat 04/21/2017 None cough Quality constant 04/21/2017 None cough Quality hacking 04/21/2017 None cough Onset and Resolution ongoing 04/21/2017 None sinus congestion Location on both sides 04/21/2017 None sinus congestion Quality fullness 04/21/2017 None sinus congestion Quality pressure 04/21/2017 None sinus congestion Onset and Resolution sudden in onset 04/21/2017 None nasal allergies Onset and Resolution ongoing 04/21/2017 None nasal allergies Pertinent Findings Denies fever 04/21/2017 None cough Location in the throat 03/03/2017 None cough Quality constant 03/03/2017 None cough Quality hacking 03/03/2017 None cough Onset and Resolution ongoing 03/03/2017 None sinus congestion Location on both sides 03/03/2017 None sinus congestion Quality fullness 03/03/2017 None sinus congestion Quality pressure 03/03/2017 None sinus congestion Onset and Resolution sudden in onset 03/03/2017 None cough Location in the throat 02/13/2017 None cough Quality productive 02/13/2017 None cough Quality constant 02/13/2017 None cough Onset and Resolution sudden in onset 02/13/2017 None eye erythema Location in the left conjunctiva 02/13/2017 None eye erythema Quality acute 02/13/2017 None eye erythema Pertinent Findings Denies fever 02/13/2017 None sinus congestion Location on both sides 02/09/2017 None sinus congestion Quality fullness 02/09/2017 None sinus congestion Quality pressure 02/09/2017 None sinus congestion Quality pain 02/09/2017 None sinus congestion Onset and Resolution sudden in onset 02/09/2017 None sinus congestion Onset of Symptom 3 days ago 02/09/2017 None sinus congestion Frequency of Episodes daily 02/09/2017 None sinus congestion Pertinent Findings fever 02/09/2017 None sinus congestion Pertinent Findings hoarseness 02/09/2017 None sinus congestion Pertinent Findings cough 02/09/2017 None sinus congestion Pertinent Findings decreased energy level 02/09/2017 None sinus congestion Pertinent Findings facial pain 02/09/2017 None cough Location in the throat 02/09/2017 None cough Quality constant 02/09/2017 None cough Quality dry 02/09/2017 None cough Onset and Resolution sudden in onset 02/09/2017 None cough Onset of Symptom 3 days ago 02/09/2017 None cough Frequency of Episodes daily 02/09/2017 None sore throat Location diffusely 02/09/2017 None sore throat Quality constant 02/09/2017 None sore throat Quality burning 02/09/2017 None sore throat Quality scratchy 02/09/2017 None sore throat Onset and Resolution sudden in onset 02/09/2017 None sore throat Onset of Symptom 3 days ago 02/09/2017 None sore throat Frequency of Episodes daily 02/09/2017 None sore throat Pertinent Findings cough 02/09/2017 None sore throat Pertinent Findings decreased energy level 02/09/2017 None sore throat Pertinent Findings fever 02/09/2017 None sore throat Pertinent Findings hoarseness 02/09/2017 None cough Location in the lung 12/14/2016 None cough Quality improving 12/14/2016 None cough Onset and Resolution ongoing 12/14/2016 None cough Pertinent Findings Denies fever 12/14/2016 None sinus congestion Location maxillary sinuses 12/14/2016 None sinus congestion Quality improving 12/14/2016 None sinus congestion Pertinent Findings Denies fever 12/14/2016 None sinus congestion Location on both sides 12/05/2016 None sinus congestion Quality fullness 12/05/2016 None sinus congestion Quality pressure 12/05/2016 None sinus congestion Onset and Resolution sudden in onset 12/05/2016 None cough Location in the lung 09/23/2016 None cough Quality constant 09/23/2016 None cough Quality hacking 09/23/2016 None cough Onset and Resolution sudden in onset 09/23/2016 None cough Onset of Symptom 1 weeks ago 09/23/2016 None cough Frequency of Episodes daily 09/23/2016 None cough Pertinent Findings chest discomfort 09/23/2016 None cough Pertinent Findings hoarseness 09/23/2016 None cough Pertinent Findings nasal congestion 09/23/2016 None nasal allergies Location in both nares 09/14/2016 None nasal allergies Onset and Resolution ongoing 09/14/2016 None nasal allergies Pertinent Findings Denies fever 09/14/2016 None shortness of breath Quality chronic 09/14/2016 None shortness of breath Quality intermittent 09/14/2016 None shortness of breath Quality stable 09/14/2016 None shortness of breath Onset and Resolution ongoing 09/14/2016 None shortness of breath Alleviating Factors inhalers / nebulizer 09/14/2016 None shortness of breath Alleviating Factors medication 09/14/2016 None shortness of breath Significant Medical Conditions asthma 09/14/2016 None sinus congestion Onset and Resolution sudden in onset 07/08/2016 None sinus congestion Onset of Symptom 1 weeks ago 07/08/2016 None sinus congestion Pertinent Findings cough 07/08/2016 None sinus congestion Pertinent Findings hoarseness 07/08/2016 None sinus congestion Location on both sides 07/08/2016 None sinus congestion Quality fullness 07/08/2016 None sinus congestion Quality pain 07/08/2016 None sinus congestion Quality pressure 07/08/2016 None sinus congestion Quality constant 07/08/2016 None well woman exam (40-65 years) Lifestyle no history of physical abuse 06/17/2016 None well woman exam (40-65 years) Lifestyle no history of sexual abuse 06/17/2016 None well woman exam (40-65 years) Lifestyle family supportive of relationship 06/17/2016 None well woman exam (40-65 years) Nutrition and Exercise regular diet 06/17/2016 None well woman exam (40-65 years) Obstetrical History 2 living children 06/17/2016 None well woman exam (40-65 years) Health Guidance self-breast exam 06/17/2016 None well woman exam (40-65 years) Health Guidance baseline mammogram 06/17/2016 None well woman exam (40-65 years) Health Guidance regular exercise 06/17/2016 None well woman exam (40-65 years) Sexual Activity is monogamous 06/17/2016 None Advance Directives No Advance Directive data Encounters Encounter Performer Location Codes Date () 22199 EST. PATIENT, LEVEL III Diagnosis: Cough[ICD10: R05] Diagnosis: Other acute sinusitis[ICD10: J01.80] Lisseth Keys MD, [facility] CPT-4: 32117 03/21/2019 32634 EST. PATIENT, LEVEL III Diagnosis: Acute bronchitis due to other specified organisms[ICD10: J20.8] Diagnosis: Moderate persistent asthma with (acute) exacerbation[ICD10: J45.41] [facility] CPT-[facility]: 14454 02/25/2019 39358 EST. PATIENT, LEVEL III Diagnosis: Varicose veins of left lower extremity with pain[ICD10: I83.812] Diagnosis: Other allergic rhinitis[ICD10: J30.89] Diagnosis: Other chronic sinusitis[ICD10: J32.8] Leisa Keys MD, [facility] CPT- 4: 72624 02/08/2019 17940 EST. PATIENT, LEVEL III Diagnosis: Left lower quadrant pain[ICD10: R10.32] Diagnosis: Diarrhea, unspecified[ICD10: R19.7] Leisa Keys MD, [facility] CPT- 4: 71728 02/05/2019 49358 EST. PATIENT, LEVEL III Diagnosis: Tinea unguium[ICD10: B35.1] Diagnosis: Localized edema[ICD10: R60.0] Leisa Keys MD, [facility] CPT-4: 57264 01/23/2019 32554 EST. PATIENT, LEVEL III Diagnosis: Essential (primary) hypertension[ICD10: I10] Diagnosis: Mixed hyperlipidemia[ICD10: E78.2] Leisa Keys MD, [facility] CPT-4: 86321 01/09/2019 (08870) 98817 EST. PATIENT, LEVEL III Diagnosis: Cough[ICD10: R05] Diagnosis: Moderate persistent asthma with (acute) exacerbation[ICD10: J45.41] Lisseth Keys MD, [facility] CPT-4: 09309 10/05/2018 20535 EST. PATIENT, LEVEL III Diagnosis: Diverticulitis of large intestine without perforation or abscess with bleeding[ICD10: K57.33] Leisa Keys MD, [facility] CPT-4: 64260 08/20/2018 37045 EST. PATIENT, LEVEL IV Diagnosis: Other acute sinusitis[ICD10: J01.80] Diagnosis: Other allergic rhinitis[ICD10: J30.89] Leisa Keys MD, [facility] CPT- 4: 06471 07/24/2018 37668 EST. PATIENT, LEVEL III Diagnosis: Zoster without complications[ICD10: B02.9] Lisseth Keys MD, [facility] CPT-4: 67762 05/07/2018 30242 EST. PATIENT, LEVEL IV Diagnosis: Cough[ICD10: R05] Diagnosis: Fever presenting with conditions classified elsewhere[ICD10: R50.81] Leisa Keys MD, [facility] CPT-4: 16116 04/20/2018 50543 EST. PATIENT, LEVEL III Diagnosis: Other fatigue[ICD10: R53.83] Diagnosis: Vitamin D deficiency, unspecified[ICD10: E55.9] Diagnosis: Paresthesia of skin[ICD10: R20.2] Diagnosis: Mixed hyperlipidemia[ICD10: E78.2] Diagnosis: Cellulitis of left toe[ICD10: L03.032] Diagnosis: Essential (primary) hypertension[ICD10: I10] Leisa Keys MD, [facility] CPT-4: 37818 04/09/2018 74784 EST. PATIENT, LEVEL IV Diagnosis: Acute bronchitis due to other specified organisms[ICD10: J20.8] Diagnosis: Moderate persistent asthma with (acute) exacerbation[ICD10: J45.41] Leisa Keys MD [facility] CPT-4: 22111 12/08/2017 25796 EST. PATIENT, LEVEL IV Diagnosis: Other acute sinusitis[ICD10: J01.80] Diagnosis: Other allergic rhinitis[ICD10: J30.89] Diagnosis: Moderate persistent asthma with (acute) exacerbation[ICD10: J45.41] Leisa Keys MD [facility] CPT-4: 49918 12/01/2017 97044 EST. PATIENT, LEVEL IV Diagnosis: Moderate persistent asthma with (acute) exacerbation[ICD10: J45.41] Diagnosis: Other allergic rhinitis[ICD10: J30.89] Diagnosis: Gastro-esophageal reflux disease without esophagitis[ICD10: K21.9] Leisa Keys MD [facility] CPT-4: 97949 10/10/2017 15310 EST. PATIENT, LEVEL III Diagnosis: Moderate persistent asthma with (acute) exacerbation[ICD10: J45.41] Diagnosis: Other allergic rhinitis[ICD10: J30.89] Diagnosis: Mixed hyperlipidemia[ICD10: E78.2] Leisa Keys MD [facility] CPT-4: 65484 09/20/2017 13607 EST. PATIENT, LEVEL IV Diagnosis: Acute laryngopharyngitis[ICD10: J06.0] Diagnosis: Other acute sinusitis[ICD10: J01.80] Diagnosis: Other allergic rhinitis[ICD10: J30.89] Leisa Keys MD, [facility] CPT- 4: 94745 09/12/2017 83194 EST. PATIENT, LEVEL IV Diagnosis: Diverticulitis of large intestine without perforation or abscess with bleeding[ICD10: K57.33] Leisa Keys MD [facility] CPT-4: 39109 08/18/2017 02161 EST. PATIENT, LEVEL IV Diagnosis: Other allergic rhinitis[ICD10: J30.89] Diagnosis: Moderate persistent asthma with (acute) exacerbation[ICD10: J45.41] Leisa Keys MD, [facility] CPT-4: 18077 06/12/2017 31217 EST. PATIENT, LEVEL IV Diagnosis: Diverticulitis of large intestine without perforation or abscess with bleeding[ICD10: K57.33] Leisa Keys MD, [facility] CPT-4: 43573 05/04/2017 46698 EST. PATIENT, LEVEL IV Diagnosis: Other allergic rhinitis[ICD10: J30.89] Diagnosis: Moderate persistent asthma with (acute) exacerbation[ICD10: J45.41] Leisa Keys MD, [facility] CPT-4: 99795 04/21/2017 48276 EST. PATIENT, LEVEL III Diagnosis: Moderate persistent asthma with (acute) exacerbation[ICD10: J45.41] Leisa Keys MD, [facility] CPT-4: 84503 03/03/2017 37346 EST. PATIENT, LEVEL IV Diagnosis: Moderate persistent asthma, uncomplicated[ICD10: J45.40] Diagnosis: Other mucopurulent conjunctivitis, left eye[ICD10: H10.022] Diagnosis: Acute laryngopharyngitis[ICD10: J06.0] Leisa Keys MD, [facility] CPT- 4: 47560 02/13/2017 70173 EST. PATIENT, LEVEL IV Diagnosis: Acute laryngopharyngitis[ICD10: J06.0] Diagnosis: Other acute sinusitis[ICD10: J01.80] Diagnosis: Other allergic rhinitis[ICD10: J30.89] Leisa Keys MD, [facility] CPT- 4: 24327 02/09/2017 98895 EST. PATIENT, LEVEL III Diagnosis: Other allergic rhinitis[ICD10: J30.89] Diagnosis: Moderate persistent asthma, uncomplicated[ICD10: J45.40] Leisa Keys MD, [facility] CPT-4: 56308 12/14/2016 61428 EST. PATIENT, LEVEL III Diagnosis: Other acute sinusitis[ICD10: J01.80] Diagnosis: Other allergic rhinitis[ICD10: J30.89] Diagnosis: Moderate persistent asthma, uncomplicated[ICD10: J45.40] Diagnosis: Gastro-esophageal reflux disease without esophagitis[ICD10: K21.9] Leisa Keys MD, [facility] CPT-4: 10793 12/05/2016 47372 EST. PATIENT, LEVEL IV Diagnosis: Other allergic rhinitis[ICD10: J30.89] Diagnosis: Moderate persistent asthma, uncomplicated[ICD10: J45.40] Diagnosis: Cough[ICD10: R05] Leisa Keys MD, [facility] CPT-4: 61579 09/23/2016 50137 EST. PATIENT, LEVEL IV Diagnosis: Moderate persistent asthma, uncomplicated[ICD10: J45.40] Diagnosis: Other allergic rhinitis[ICD10: J30.89] Leisa Keys MD, [facility] CPT- 4: 84919 09/14/2016 46961 EST. PATIENT, LEVEL IV Diagnosis: Other acute sinusitis[ICD10: J01.80] Leisa Keys MD, [facility] CPT- 4: 86835 07/08/2016 (35531) PREV VISIT NEW AGE 40-64 Diagnosis: Encounter for gynecological examination (general) (routine) without abnormal findings[ICD10: Z01.419] Diagnosis: Moderate persistent asthma, uncomplicated[ICD10: J45.40] Diagnosis: Essential (primary) hypertension[ICD10: I10] Diagnosis: Mixed hyperlipidemia[ICD10: E78.2] Leisa Keys MD, [facility] CPT-4: 85551 06/17/2016 Plan of Care Planned Activity Notes Codes Status Date Visit Plan: Sinusitis - Pt has acute infection - pain in face, maxillary region, Pt informed to use decongestant, RX given to patient, sinus rinses also recommended. Call if symptoms do not show improvement. 03/21/2019 Patient Education: Patient Medication Summary Completed 03/21/2019 Visit Plan: Bronchitis - acute case of bronchitis identified. Pt has been given antibiotics, breathing treatments as appropriate, and pt has been instructed to call if symptoms are not improved, or if symptoms acutely worsen. Asthma Exacerbation - Asthma is a chronic problem for this patient, however, the pt is experiencing an acute exacerbation of the chronic Asthma symptoms. Pt is to receive appropriate treatment as an out patient, but the pt is aware that if symptoms worsen or do not improve, to call [facility] for instructions, or go to the EMERGENCY ROOM if the symptoms are beyond acute control with rescue medications. We have reviewed chronic treatment strategy, symptom control, and plans for acute exacerbations. No changes today to the current treatment plan as the patient is stable, monitor for acute changes. 02/25/2019 Appointment: Leisa Kirkpatrick WPtel: [phone] [id number] (30 min) Complex 02/25/2019 Patient Education: Patient Medication Summary Completed 02/25/2019 Visit Plan: Allergies - chronic - recommended pt to use allergy medication as prescribed. Pt has been counseled as to the appropriate use of the medication. Pt to call if allergy symptoms are not controlled with the medication. Sinusitis - Pt has acute infection - pain in face, maxillary region, Pt informed to use decongestant, RX given to patient, sinus rinses also recommended. Call if symptoms do not show improvement. Varicose Veins - recommended thigh-high compression, elevation of lower legs while seated. Pt to consider treatment for varicose veins with vein specialist. 02/08/2019 Appointment: Leisa Kirkpatrick WPtel: [phone] [id number] (30 min) Complex 02/08/2019 Patient Education: Patient Medication Summary Completed 02/08/2019 Visit Plan: Diarrhea - recommended bland diet, low fat diet, start on probiotic, and rehydrate with gatorade-like product. Pt to call if feeling worse, diarrhea becomes bloody, or does not improve with above recomm endations. Pt to call for acute worsening of stomach upset or stomach pain. Diverticulitis - rx for antibiotic sent to pt's pharmacy - pt advised to avoid seeds, nuts, popcorn, or any other food which has been proven to upset the pt's stomach. 02/05/2019 Appointment: Leisa Kirkpatrick WPtel: [phone] [id number] (30 min) Complex 02/05/2019 Patient Education: Patient Medication Summary Completed 02/05/2019 Visit Plan: Edema - pt has been advised to elevate legs to prevent dependent edema, compression has been recommended to help to naturally decrease peripheral edema. Diuretic use has been discussed and pt has been instructed in appropriate use of such medication as necessary to further attempt to reduce peripheral edema. toenail fungus - pt is to use OTC treatments and notify clinic if symptoms do not improve, if they worsen, or with any changes, questions, or concerns. 01/23/2019 Appointment: Leisa Kirkpatrick WPtel: [phone] [id number] (30 min) Complex 01/23/2019 Patient Education: Patient Medication Summary Completed 01/23/2019 Visit Plan: pt is on chronic antihypertensive medication - the medication has been adjusted down to attempt to alleviate the low blood pressures. 01/09/2019 Appointment: Leisa Kirkpatrick WPtel: [phone] [id number] (30 min) Complex 01/09/2019 Patient Education: Patient Medication Summary Completed 01/09/2019 Patient Education: Cholesterol Management Completed 01/09/2019 Visit Plan: Asthma Exacerbation - Asthma is a chronic problem for this patient, however, the pt is experiencing an acute exacerbation of the chronic Asthma symptoms. Pt is to receive appropriate treatment as an out patient, but the pt is aware that if symptoms worsen or do not improve, to call [facility] for instructions, or go to the EMERGENCY ROOM if the symptoms are beyond acute control with rescue medications. We have reviewed chronic treatment strategy, symptom control, and plans for acute exacerbations. No changes today to the current treatment plan as the patient is stable, monitor for acute changes. 10/05/2018 Appointment: Lisseth Greene WPtel: [phone] [phone] [place] (15 min) Moderate 10/05/2018 Patient Education: Patient Medication Summary Completed 10/05/2018 Visit Plan: Diverticulitis - rx for antibiotic sent to pt's pharmacy - pt advised to avoid seeds, nuts, popcorn, or any other food which has been proven to upset the pt's stomach. 08/20/2018 Appointment: Leisa Kirkpatrick WPtel: [phone] [id number] [place] (15 min) Moderate 08/20/2018 Patient Education: Patient Medication Summary Completed 08/20/2018 Patient Education: Diverticulitis Completed 08/20/2018 Visit Plan: Sinusitis - Pt has acute infection - pain in face, maxillary region, Pt informed to use decongestant, RX given to patient, sinus rinses also recommended. Call if symptoms do not show improvement. Allergies - chronic - recommended pt to use allergy medication as prescribed. Pt has been counseled as to the appropriate use of the medication. Pt to call if allergy symptoms are not controlled with the medication. If using nasal spray, instructions as follows: Nasal spray- use twice daily, one spray per nostril twice daily, after 30 minutes, rinse out nose with saline spray.. Use opposite hand per nostril to spray in the nasal steroid allergy spray. 07/24/2018 Appointment: Leisa Kirkpatrick WPtel: [phone] [id number] (15 min) Moderate 07/24/2018 Patient Education: Patient Medication Summary Completed 07/24/2018 Appointment: Leisa Kirkpatrick WPtel: [phone] [id number] (30 min) Complex 05/14/2018 Visit Plan: Shingles - Herpes Zoster - acute in onset - pt started on acyclovir and instructed to call if symptoms worsen or if the pt is concerned about the symptoms. Pt has been advised to avoid contact with persons who may be , or infants, or immunocompromised individuals. Pt has been instructed that shingles will continue to break out and eventually scab over a two week period, until all of the vesicles are scabbed, the pt is to be considered contagious. 05/07/2018 Appointment: Lisseth Greene WPtel: [phone] [phone] [place] (15 min) Moderate 05/07/2018 Patient Education: Patient Medication Summary Completed 05/07/2018 Visit Plan: Fever, fatigue - pt is to increase her fluid intake and monitor symptoms - will check UA and treat if indicated - will send RX for pt to start over the weekend if needed - pt is to notify clinic if symptoms do not improve, if they worsen, or with any changes, questions, or concerns. 04/20/2018 Appointment: Leisa Kirkpatrick WPtel: [phone] [id number] (15 min) Moderate 04/20/2018 Patient Education: Patient Medication Summary Completed 04/20/2018 Visit Plan: Left great toe infection - The patient was instructed in appropriate wound care. The patient was instructed to use the antibiotic as per RX. The patient is to call for any change in symptoms, increase in size of the lesion, increase in pain, worsening redness, warmth, discharge. Hypertension -The patient has been counseled to cut back on salt in diet for a no added salt diet, low fat diet, start an exercise program with low weight bearing exercises and higher aerobic activity for heart health. The patient is to check blood pressure readings as an outpatient and either fax, call, or email the readings to the office next week for practitioner to review. The pt is to call for acute concerns. Hyperlipidemia - pt has been counseled about appropriate diet, exercise, and need for low fat food choices. I have discussed the need for the patient to take medications as prescribed. If the patient has negative side effects from the medication, they are to CALL the office and not abruptly discontinue the medication without discussion with a practitioner in the office. We will check labs in 3-6 months for follow up on the patient's chronic medical problem and to assure normal liver response to medications. Fatigue, paresthesias, history of vitamin D deficiency - will check labs and treat as indicated. 04/09/2018 Appointment: Leisa Kirkpatrick WPtel: [address] [place], [place] [phone] (15 min) Moderate 04/09/2018 Patient Education: Patient Medication Summary Completed 04/09/2018 Patient Education: Patient Medication Summary Completed 04/09/2018 Care Plan: B12 Pending 04/09/2018 Care Plan: Folate Pending 04/09/2018 Care Plan: Vitamin D 25 Oh Pending 04/09/2018 Care Plan: Lipid Pending 04/09/2018 Care Plan: SCREENINGMAMMOGRAPHYDIGITAL LOINC : [id number] Pending 04/09/2018 Visit Plan: Bronchitis - acute case of bronchitis identified. Pt has been given antibiotics, breathing treatments as appropriate, and pt has been instructed to call if symptoms are not improved, or if symptoms acutely worsen. Asthma Exacerbation - Asthma is a chronic problem for this patient, however, the pt is experiencing an acute exacerbation of the chronic Asthma symptoms. Pt is to receive appropriate treatment as an out patient, but the pt is aware that if symptoms worsen or do not improve, to call [facility] for instructions, or go to the EMERGENCY ROOM if the symptoms are beyond acute control with rescue medications. We have reviewed chronic treatment strategy, symptom control, and plans for acute exacerbations. No changes today to the current treatment plan as the patient is stable, monitor for acute changes. 12/08/2017 Appointment: Le[facility] Kirkpatrick [facility]el[id number] (30 min) Complex 12/08/2017 Patient Education: Patient Medication Summary Completed 12/08/2017 Visit Plan: Sinusitis - Pt has acute infection - pain in face, maxillary region, Pt informed to use decongestant, RX given to patient, sinus rinses also recommended. Call if symptoms do not show improvement. Allergies - chronic - recommended pt to use allergy medication as prescribed. Pt has been counseled as to the appropriate use of the medication. Pt to call if allergy symptoms are not controlled with the medication. If using nasal spray, instructions as follows: Nasal spray- use twice daily, one spray per nostril twice daily, after 30 minutes, rinse out nose with saline spray.. Use opposite hand per nostril to spray in the nasal steroid allergy spray. Asthma Exacerbation - Asthma is a chronic problem for this patient, however, the pt is experiencing an acute exacerbation of the chronic Asthma symptoms. Pt is to receive appropriate treatment as an out patient, but the pt is aware that if symptoms worsen or do not improve, to call [facility] for instructions, or go to the EMERGENCY ROOM if the symptoms are beyond acute control with rescue medications. We have reviewed chronic treatment strategy, symptom control, and plans for acute exacerbations. No changes today to the current treatment plan as the patient is stable, monitor for acute changes. 12/01/2017 Appointment: Leisa Kirkpatrick [facility]Ptel[id number] (15 min) Moderate 12/01/2017 Patient Education: Patient Medication Summary Completed 12/01/2017 Visit Plan: Asthma Exacerbation - Asthma is a chronic problem for this patient, however, the pt is experiencing an acute exacerbation of the chronic Asthma symptoms. Pt is to receive appropriate treatment as an out patient, but the pt is aware that if symptoms worsen or do not improve, to call [facility] for instructions, or go to the EMERGENCY ROOM if the symptoms are beyond acute control with rescue medications. We have reviewed chronic treatment strategy, symptom control, and plans for acute exacerbations. No changes today to the current treatment plan as the patient is stable, monitor for acute changes. Allergies - chronic - recommended pt to use allergy medication as prescribed. Pt has been counseled as to the appropriate use of the medication. Pt to call if allergy symptoms are not controlled with the medication. If using nasal spray, instructions as follows: Nasal spray- use twice daily, one spray per nostril twice daily, after 30 minutes, rinse out nose with saline spray.. Use opposite hand per nostril to spray in the nasal steroid allergy spray. Esophageal Reflux - the patient has been counseled against excessive intake of caffeine, spicy foods, peppermint, and cinnamon - all of which can exacerbate es ophageal reflux. The patient is to take medications as prescribed and call the office if the symptoms are not improving. 10/10/2017 Appointment: Leisa Kirkpatrick WPtel: [address] [place], [place] [id number] (15 min) Moderate 10/10/2017 Patient Education: Patient Medication Summary Completed 10/10/2017 Appointment: Leisa Kirkpatrick WPtel: [id number] (15 min) Moderate 10/06/2017 Visit Plan: Asthma Exacerbation - Asthma is a chronic problem for this patient, however, the pt is experiencing an acute exacerbation of the chronic Asthma symptoms. Pt is to receive appropriate treatment as an out patient, but the pt is aware that if symptoms worsen or do not improve, to call [facility] for instructions, or go to the EMERGENCY ROOM if the symptoms are beyond acute control with rescue medications. We have reviewed chronic treatment strategy, symptom control, and plans for acute exacerbations. No changes today to the current treatment plan as the patient is stable, monitor for acute changes. Allergies - chronic - recommended pt to use allergy medication as prescribed. Pt has been counseled as to the appropriate use of the medication. Pt to call if allergy symptoms are not controlled with the medication. If using nasal spray, instructions as follows: Nasal spray- use twice daily, one spray per nostril twice daily, after 30 minutes, rinse out nose with saline spray.. Use opposite hand per nostril to spray in the nasal steroid allergy spray. Hyperlipidemia - pt has been counseled about appropriate diet, exercise, and need for low fat food choices. I have discussed the need for the patient to take medications as prescribed. If the patient has negative side effects from the medication, they are to CALL the office and not abruptly discontinue the medication without discussion with a practitioner in the office. We will check labs in 3-6 months for follow up on the patient's chronic medical problem and to assure normal liver response to medications. 09/20/2017 Appointment: Leisa Kirkpatrick WPtel: [phone] [id number] (15 min) Moderate 09/20/2017 Patient Education: Patient Medication Summary Completed 09/20/2017 Patient Education: Obesity Completed 09/20/2017 Care Plan: Comp Metabolic Pending 09/20/2017 Care Plan: Cbc With Differential Pending 09/20/2017 Care Plan: Tsh Pending 09/20/2017 Care Plan: Lipid Pending 09/20/2017 Visit Plan: URI - Pt advised to increase fluids, vitamin C. Discussed natural and expected course of this diagnosis and need to alert me if symptoms do not follow expected course, or if any worse. RX sent to patient's pharmacy. Sinusitis - Pt has acute infection - pain in face, maxillary region, Pt informed to use decongestant, RX given to patient, sinus rinses also recommended. Call if symptoms do not show improvement. Allergies - chronic - recommended pt to use allergy medication as prescribed. Pt has been counseled as to the appropriate use of the medication. Pt to call if allergy symptoms are not controlled with the medication. If using nasal spray, instructions as follows: Nasal spray- use twice daily, one spray per nostril twice daily, after 30 minutes, rinse out nose with saline spray.. Use opposite hand per nostril to spray in the nasal steroid allergy spray. 09/12/2017 Appointment: Leisa Kirkpatrick WPtel: [phone] [id number] (15 min) Moderate 09/12/2017 Patient Education: Patient Medication Summary Completed 09/12/2017 Patient Education: Obesity Completed 09/12/2017 Visit Plan: Diverticulitis - rx for antibiotic sent to pt's pharmacy - pt advised to avoid seeds, nuts, popcorn, or any other food which has been proven to upset the pt's stomach. 08/18/2017 Appointment: Le[facility] Kirkpatrick [facility]el: [id number] ([facility] min) Complex 08/18/2017 Patient Education: Patient Medication Summary Completed 08/18/2017 Visit Plan: Asthma Exacerbation - Asthma is a chronic problem for this patient, however, the pt is experiencing an acute exacerbation of the chronic Asthma symptoms. Pt is to receive appropriate treatment as an out patient, but the pt is aware that if symptoms worsen or do not improve, to call [facility] for instructions, or go to the EMERGENCY ROOM if the symptoms are beyond acute control with rescue medications. We have reviewed chronic treatment strategy, symptom control, and plans for acute exacerbations. No changes today to the current treatment plan as the patient is stable, monitor for acute changes. Allergies - chronic - recommended pt to use allergy medication as prescribed. Pt has been counseled as to the appropriate use of the medication. Pt to call if allergy symptoms are not controlled with the medication. If using nasal spray, instructions as follows: Nasal spray- use twice daily, one spray per nostril twice daily, after 30 minutes, rinse out nose with saline spray.. Use opposite hand per nostril to spray in the nasal steroid allergy spray. 06/12/2017 Appointment: Leisa Kirkpatrick WPtel: [id number] (10 min) Simple 06/12/2017 Patient Education: Patient Medication Summary Completed 06/12/2017 Visit Plan: Diverticulitis - rx for antibiotic sent to pt's pharmacy - pt advised to avoid seeds, nuts, popcorn, or any other food which has been proven to upset the pt's stomach. 05/04/2017 Appointment: Leisa Kirkpatrick [facility]Ptel: [id number] (30 min) Complex 05/04/2017 Patient Education: Patient Medication Summary Completed 05/04/2017 Visit Plan: Asthma Exacerbation - Asthma is a chronic problem for this patient, however, the pt is experiencing an acute exacerbation of the chronic Asthma symptoms. Pt is to receive appropriate treatment as an out patient, but the pt is aware that if symptoms worsen or do not improve, to call [facility] for instructions, or go to the EMERGENCY ROOM if the symptoms are beyond acute control with rescue medications. We have reviewed chronic treatment strategy, symptom control, and plans for acute exacerbations. No changes today to the current treatment plan as the patient is stable, monitor for acute changes. Allergies - chronic - recommended pt to use allergy medication as prescribed. Pt has been counseled as to the appropriate use of the medication. Pt to call if allergy symptoms are not controlled with the medication. If using nasal spray, instructions as follows: Nasal spray- use twice daily, one spray per nostril twice daily, after 30 minutes, rinse out nose with saline spray.. Use opposite hand per nostril to spray in the nasal steroid allergy spray. 04/21/2017 Appointment: Leisa Kirkpatrick WPtel: [id number] (15 min) Moderate 04/21/2017 Patient Education: Patient Medication Summary Completed 04/21/2017 Patient Education: Obesity Completed 04/21/2017 Visit Plan: Asthma Exacerbation - Asthma is a chronic problem for this patient, however, the pt is experiencing an acute exacerbation of the chronic Asthma symptoms. Pt is to receive appropriate treatment as an out patient, but the pt is aware that if symptoms worsen or do not improve, to call [facility] for instructions, or go to the EMERGENCY ROOM if the symptoms are beyond acute control with rescue medications. We have reviewed chronic treatment strategy, symptom control, and plans for acute exacerbations. No changes today to the current treatment plan as the patient is stable, monitor for acute changes. 03/03/2017 Appointment: Leisa Kirkpatrick WPtel: [id number] (30 min) Complex 03/03/2017 Patient Education: Patient Medication Summary Completed 03/03/2017 Patient Education: Obesity Completed 03/03/2017 Visit Plan: URI - Pt advised to increase fluids, vitamin C. Discussed natural and expected course of this diagnosis and need to alert me if symptoms do not follow expected course, or if any worse. RX sent to patient's pharmacy. Asthma - chronic problem for this patient. We have reviewed chronic treatment strategy, symptom control, and plans for acute exacerbations. No changes today to the current treatment plan as the patient is stable, monitor for acute changes Conjunctivitis - rx for eye drops/lube sent electronically to the patient's pharmacy. The patient has been instructed to cleanse affected eye with warm washcloth, then place medication into affected eye four times daily. 02/13/2017 Appointment: Leisa Kirkpatrick WPtel: [id number] (10 min) Simple 02/13/2017 Patient Education: Patient Medication Summary Completed 02/13/2017 Visit Plan: URI - Pt advised to increase fluids, vitamin C. Discussed natural and expected course of this diagnosis and need to alert me if symptoms do not follow expected course, or if any worse. RX sent to patient's pharmacy. Sinusitis - Pt has acute infection - pain in face, maxillary region, Pt informed to use decongestant, RX given to patient, sinus rinses also recommended. Call if symptoms do not show improvement. Allergies - chronic - recommended pt to use allergy medication as prescribed. Pt has been counseled as to the appropriate use of the medication. Pt to call if allergy symptoms are not controlled with the medication. If using nasal spray, instructions as follows: Nasal spray- use twice daily, one spray per nostril twice daily, after 30 minutes, rinse out nose with saline spray.. Use opposite hand per nostril to spray in the nasal steroid allergy spray. 02/09/2017 Appointment: Leisa Kirkpatrick WPtel: [id number] (15 min) Moderate 02/09/2017 Patient Education: Patient Medication Summary Completed 02/09/2017 Patient Education: Obesity Completed 02/09/2017 Visit Plan: Asthma - chronic problem for this patient. We have reviewed chronic treatment strategy, symptom control, and plans for acute exacerbations. No changes today to the current treatment plan as the patient is stable, monitor for acute changes Allergies - chronic - recommended pt to use allergy medication as prescribed. Pt has been counseled as to the appropriate use of the medication. Pt to call if allergy symptoms are not controlled with the medication. If using nasal spray, instructions as follows: Nasal spray- use twice daily, one spray per nostril twice daily, after 30 minutes, rinse out nose with saline spray.. Use opposite hand per nostril to spray in the nasal steroid allergy spray. 12/14/2016 Appointment: Leisa Kirkpatrick WPtel: [id number] (15 min) Moderate 12/14/2016 Patient Education: Patient Medication Summary Completed 12/14/2016 Visit Plan: Sinusitis - Pt has acute infection - pain in face, maxillary region, Pt informed to use decongestant, RX given to patient, sinus rinses also recommended. Call if symptoms do not show improvement. Allergies - chronic - recommended pt to use allergy medication as prescribed. Pt has been counseled as to the appropriate use of the medication. Pt to call if allergy symptoms are not controlled with the medication. If using nasal spray, instructions as follows: Nasal spray- use twice daily, one spray per nostril twice daily, after 30 minutes, rinse out nose with saline spray.. Use opposite hand per nostril to spray in the nasal steroid allergy spray. Asthma - chronic problem for this patient. We have reviewed chronic treatment strategy, symptom control, and plans for acute exacerbations. No changes today to the current treatment plan as the patient is stable, monitor for acute changes Esophageal Reflux - the patient has been counseled against excessive intake of caffeine, spicy foods, peppermint, and cinnamon - all of which can exacerbate esophageal reflux. The patient is to take medications as prescribed and call the office if the symptoms are not improving. 12/05/2016 Appointment: Leisa Kirkpatrick WPtel: [id number] (30 min) Complex 12/05/2016 Patient Education: Patient Medication Summary Completed 12/05/2016 Patient Education: Obesity Completed 12/05/2016 Visit Plan: Allergies - chronic - recommended pt to use allergy medication as prescribed. Pt has been counseled as to the appropriate use of the medication. Pt to call if allergy symptoms are not controlled with the medication. If using nasal spray, instructions as follows: Nasal spray- use twice daily, one spray per nostril twice daily, after 30 minutes, rinse out nose with saline spray.. Use opposite hand per nostril to spray in the nasal steroid allergy spray. URI - Pt advised to increase fluids, vitamin C. Discussed natural and expected course of this diagnosis and need to alert me if symptoms do not follow expected course, or if any worse. RX sent to patient's pharmacy. Asthma Exacerbation - Asthma is a chronic problem for this patient, however, the pt is experiencing an acute exacerbation of the chronic Asthma symptoms. Pt is to receive appropriate treatment as an out patient, but the pt is aware that if symptoms worsen or do not improve, to call [facility] for instructions, or go to the EMERGENCY ROOM if the symptoms are beyond acute control with rescue medications. We have reviewed chronic treatment strategy, symptom control, and plans for acute exacerbations. No changes today to the current treatment plan as the patient is stable, monitor for acute changes. 09/23/2016 Appointment: Lisseth Greene WPtel: [phone] [id number] (30 min) Complex 09/23/2016 Patient Education: Patient Medication Summary Completed 09/23/2016 Patient Education: Obesity Completed 09/23/2016 Visit Plan: Allergies - chronic - recommended pt to use allergy medication as prescribed. Pt has been counseled as to the appropriate use of the medication. Pt to call if allergy symptoms are not controlled with the medication. If using nasal spray, instructions as follows: Nasal spray- use twice daily, one spray per nostril twice daily, after 30 minutes, rinse out nose with saline spray.. Use opposite hand per nostril to spray in the nasal steroid allergy spray. Asthma - chronic problem for this patient. We have reviewed chronic treatment strategy, symptom control, and plans for acute exacerbations. No changes today to the current treatment plan as the patient is stable, monitor for acute changes 09/14/2016 Patient Education: Patient Medication Summary Completed 09/14/2016 Visit Plan: Sinusitis - Pt has acute infection - pain in face, maxillary region, Pt informed to use decongestant, RX given to patient, sinus rinses also recommended. Call if symptoms do not show improvement. Allerg ies/asthma - pt sees an bilingual customer service specialist who recently started her on Qvar and dexilant. They are referring her to pulmonology (Dr. Mcconnell) - pt is to notify clinic with any questions or concerns. 07/08/2016 Appointment: Lisseth Greene WPtel: [phone] [id number] (15 min) Moderate 07/08/2016 Patient Education: Patient Medication Summary Completed 07/08/2016 Patient Education: Obesity Completed 07/08/2016 Visit Plan: Well Adult Female - exam completed. Pap and gc/chlamydia and breast exam completed. Pt will be called with results of her testing. She was advised to continue with yearly annual exams. Safe sex practices discussed during office visit today. Call if any abnormal gynecologic issues during the next year, otherwise, RTC yearly or prn. Hypertension - well controlled - continue with current medications, continue with no added salt diet. Pt has been encouraged to exercise daily. The pt has been advised to call the office if there are any acute concerns about change in blood pressure readings at home. Hyperlipidemia - pt has been counseled about appropriate diet, exercise, and need for low fat food choices. I have discussed the need for the patient to take medications as prescribed. If the patient has negative side effects from the medication, they are to CALL the office and not abruptly discontinue the medication without discussion with a practitioner in the office. We will check labs in 3-6 months for follow up on the patient's chronic medical problem and to assure normal liver response to medications. 06/17/2016 Appointment: Lisseth Greene WPtel: [phone] New Patient 06/17/2016 Patient Education: Patient Medication Summary Completed 06/17/2016 Care Plan: PAP Pending 06/17/2016 Instructions Comment . Bronchitis - acute case of bronchitis identified. Pt has been given antibiotics, breathing treatments as appropriate, and pt has been instructed to call if symptoms are not improved, or if symptoms acutely worsen. Asthma Exacerbation - Asthma is a chronic problem for this patient, however, the pt is experiencing an acute exacerbation of the chronic Asthma symptoms. Pt is to receive appropriate treatment as an out patient, but the pt is aware that if symptoms worsen or do not improve, to call [facility] for instructions, or go to the EMERGENCY ROOM if the symptoms are beyond acute control with rescue medications. We have reviewed chronic treatment strategy, symptom control, and plans for acute exacerbations. No changes today to the current treatment plan as the patient is stable, monitor for acute changes. . Diverticulitis - rx for antibiotic sent to pt's pharmacy - pt advised to avoid seeds, nuts, popcorn, or any other food which has been proven to upset the pt's stomach. . Shingles - Herpes Zoster - acute in onset - pt started on acyclovir and instructed to call if symptoms worsen or if the pt is concerned about the symptoms. Pt has been advised to avoid contact with persons who may be , or infants, or immunocompromised individuals. Pt has been instructed that shingles will continue to break out and eventually scab over a two week period, until all of the vesicles are scabbed, the pt is to be considered contagious. . Edema - pt has been advised to elevate legs to prevent dependent edema, compression has been recommended to help to naturally decrease peripheral edema. Diuretic use has been discussed and pt has been instructed in appropriate use of such medication as necessary to further attempt to reduce peripheral edema. toenail fungus - pt is to use OTC treatments and notify clinic if symptoms do not improve, if they worsen, or with any changes, questions, or concerns. . Left great toe infection - The patient was instructed in appropriate wound care. The patient was instructed to use the antibiotic as per RX. The patient is to call for any change in symptoms, increase in size of the lesion, increase in pain, worsening redness, warmth, discharge. Hypertension -The patient has been counseled to cut back on salt in diet for a no added salt diet, low fat diet, start an exercise program with low weight bearing exercises and higher aerobic activity for heart health. The patient is to check blood pressure readings as an outpatient and either fax, call, or email the readings to the office next week for practitioner to review. The pt is to call for acute concerns. Hyperlipidemia - pt has been counseled about appropriate diet, exercise, and need for low fat food choices. I have discussed the need for the patient to take medications as prescribed. If the patient has negative side effects from the medication, they are to CALL the office and not abruptly discontinue the medication without discussion with a practitioner in the office. We will check labs in 3-6 months for follow up on the patient's chronic medical problem and to assure normal liver response to medications. Fatigue, paresthesias, history of vitamin D deficiency - will check labs and treat as indicated. . Asthma - chronic problem for this patient. We have reviewed chronic treatment strategy, symptom control, and plans for acute exacerbations. No changes today to the current treatment plan as the patient is stable, monitor for acute changes Allergies - chronic - recommended pt to use allergy medication as prescribed. Pt has been counseled as to the appropriate use of the medication. Pt to call if allergy symptoms are not controlled with the medication. If using nasal spray, instructions as follows: Nasal spray- use twice daily, one spray per nostril twice daily, after 30 minutes, rinse out nose with saline spray.. Use opposite hand per nostril to spray in the nasal steroid allergy spray. . Fever, fatigue - pt is to increase her fluid intake and monitor symptoms - will check UA and treat if indicated - will send RX for pt to start over the weekend if needed - pt is to notify clinic if symptoms do not improve, if they worsen, or with any changes, questions, or concerns. . URI - Pt advised to increase fluids, vitamin C. Discussed natural and expected course of this diagnosis and need to alert me if symptoms do not follow expected course, or if any worse. RX sent to patient's pharmacy. Sinusitis - Pt has acute infection - pain in face, maxillary region, Pt informed to use decongestant, RX given to patient, sinus rinses also recommended. Call if symptoms do not show improvement. Allergies - chronic - recommended pt to use allergy medication as prescribed. Pt has been counseled as to the appropriate use of the medication. Pt to call if allergy symptoms are not controlled with the medication. If using nasal spray, instructions as follows: Nasal spray- use twice daily, one spray per nostril twice daily, after 30 minutes, rinse out nose with saline spray.. Use opposite hand per nostril to spray in the nasal steroid allergy spray. . Sinusitis - Pt has acute infection - pain in face, maxillary region, Pt informed to use decongestant, RX given to patient, sinus rinses also recommended. Call if symptoms do not show improvement. Allergies - chronic - recommended pt to use allergy medication as prescribed. Pt has been counseled as to the appropriate use of the medication. Pt to call if allergy symptoms are not controlled with the medication. If using nasal spray, instructions as follows: Nasal spray- use twice daily, one spray per nostril twice daily, after 30 minutes, rinse out nose with saline spray.. Use opposite hand per nostril to spray in the nasal steroid allergy spray. Asthma - chronic problem for this patient. We have reviewed chronic treatment strategy, symptom control, and plans for acute exacerbations. No changes today to the current treatment plan as the patient is stable, monitor for acute changes Esophageal Reflux - the patient has been counseled against excessive intake of caffeine, spicy foods, peppermint, and cinnamon - all of which can exacerbate esophageal reflux. The patient is to take medications as prescribed and call the office if the symptoms are not improving. . Sinusitis - Pt has acute infection - pain in face, maxillary region, Pt informed to use decongestant, RX given to patient, sinus rinses also recommended. Call if symptoms do not show improvement. Allergies - chronic - recommended pt to use allergy medication as prescribed. Pt has been counseled as to the appropriate use of the medication. Pt to call if allergy symptoms are not controlled with the medication. If using nasal spray, instructions as follows: Nasal spray- use twice daily, one spray per nostril twice daily, after 30 minutes, rinse out nose with saline spray.. Use opposite hand per nostril to spray in the nasal steroid allergy spray. Asthma Exacerbation - Asthma is a chronic problem for this patient, however, the pt is experiencing an acute exacerbation of the chronic Asthma symptoms. Pt is to receive appropriate treatment as an out patient, but the pt is aware that if symptoms worsen or do not improve, to call [facility] for instructions, or go to the EMERGENCY ROOM if the symptoms are beyond acute control with rescue medications. We have reviewed chronic treatment strategy, symptom control, and plans for acute exacerbations. No changes today to the current treatment plan as the patient is stable, monitor for acute changes. Start the flagyl you have at home x 7 days . Diverticulitis - rx for antibiotic sent to pt's pharmacy - pt advised to avoid seeds, nuts, popcorn, or any other food which has been proven to upset the pt's stomach. . Well Adult Female - exam completed. Pap and gc/chlamydia and breast exam completed. Pt will be called with results of her testing. She was advised to continue with yearly annual exams. Safe sex practices discussed during office visit today. Call if any abnormal gynecologic issues during the next year, otherwise, RTC yearly or prn. Hypertension - well controlled - continue with current medications, continue with no added salt diet. Pt has been encouraged to exercise daily. The pt has been advised to call the office if there are any acute concerns about change in blood pressure readings at home. Hyperlipidemia - pt has been counseled about appropriate diet, exercise, and need for low fat food choices. I have discussed the need for the patient to take medications as prescribed. If the patient has negative side effects from the medication, they are to CALL the office and not abruptly discontinue the medication without discussion with a practitioner in the office. We will check labs in 3-6 months for follow up on the patient's chronic medical problem and to assure normal liver response to medications. . URI - Pt advised to increase fluids, vitamin C. Discussed natural and expected course of this diagnosis and need to alert me if symptoms do not follow expected course, or if any worse. RX sent to patient's pharmacy. Asthma - chronic problem for this patient. We have reviewed chronic treatment strategy, symptom control, and plans for acute exacerbations. No changes today to the current treatment plan as the patient is stable, monitor for acute changes Conjunctivitis - rx for eye drops/lube sent electronically to the patient's pharmacy. The patient has been instructed to cleanse affected eye with warm washcloth, then place medication into affected eye four times daily. Start prednisone only if symptoms worsen. . Sinusitis - Pt has acute infection - pain in face, maxillary region, Pt informed to use decongestant, RX given to patient, sinus rinses also recommended. Call if symptoms do not show improvement. Allergies - chronic - recommended pt to use allergy medication as prescribed. Pt has been counseled as to the appropriate use of the medication. Pt to call if allergy symptoms are not controlled with the medication. If using nasal spray, instructions as follows: Nasal spray- use twice daily, one spray per nostril twice daily, after 30 minutes, rinse out nose with saline spray.. Use opposite hand per nostril to spray in the nasal steroid allergy spray. . Diverticulitis - rx for antibiotic sent to pt's pharmacy - pt advised to avoid seeds, nuts, popcorn, or any other food which has been proven to upset the pt's stomach. . Allergies - chronic - recommended pt to use allergy medication as prescribed. Pt has been counseled as to the appropriate use of the medication. Pt to call if allergy symptoms are not controlled with the medication. If using nasal spray, instructions as follows: Nasal spray- use twice daily, one spray per nostril twice daily, after 30 minutes, rinse out nose with saline spray.. Use opposite hand per nostril to spray in the nasal steroid allergy spray. Asthma - chronic problem for this patient. We have reviewed chronic treatment strategy, symptom control, and plans for acute exacerbations. No changes today to the current treatment plan as the patient is stable, monitor for acute changes . Asthma Exacerbation - Asthma is a chronic problem for this patient, however, the pt is experiencing an acute exacerbation of the chronic Asthma symptoms. Pt is to receive appropriate treatment as an out patient, but the pt is aware that if symptoms worsen or do not improve, to call [facility] for instructions, or go to the EMERGENCY ROOM if the symptoms are beyond acute control with rescue medications. We have reviewed chronic treatment strategy, symptom control, and plans for acute exacerbations. No changes today to the current treatment plan as the patient is stable, monitor for acute changes. . Asthma Exacerbation - Asthma is a chronic problem for this patient, however, the pt is experiencing an acute exacerbation of the chronic Asthma symptoms. Pt is to receive appropriate treatment as an out patient, but the pt is aware that if symptoms worsen or do not improve, to call [facility] for instructions, or go to the EMERGENCY ROOM if the symptoms are beyond acute control with rescue medications. We have reviewed chronic treatment strategy, symptom control, and plans for acute exacerbations. No changes today to the current treatment plan as the patient is stable, monitor for acute changes. Allergies - chronic - recommended pt to use allergy medication as prescribed. Pt has been counseled as to the appropriate use of the medication. Pt to call if allergy symptoms are not controlled with the medication. If using nasal spray, instructions as follows: Nasal spray- use twice daily, one spray per nostril twice daily, after 30 minutes, rinse out nose with saline spray.. Use opposite hand per nostril to spray in the nasal steroid allergy spray. Hyperlipidemia - pt has been counseled about appropriate diet, exercise, and need for low fat food choices. I have discussed the need for the patient to take medications as prescribed. If the patient has negative side effects from the medication, they are to CALL the office and not abruptly discontinue the medication without discussion with a practitioner in the office. We will check labs in 3-6 months for follow up on the patient's chronic medical problem and to assure normal liver response to medications. . Asthma Exacerbation - Asthma is a chronic problem for this patient, however, the pt is experiencing an acute exacerbation of the chronic Asthma symptoms. Pt is to receive appropriate treatment as an out patient, but the pt is aware that if symptoms worsen or do not improve, to call [facility] for instructions, or go to the EMERGENCY ROOM if the symptoms are beyond acute control with rescue medications. We have reviewed chronic treatment strategy, symptom control, and plans for acute exacerbations. No changes today to the current treatment plan as the patient is stable, monitor for acute changes. Allergies - chronic - recommended pt to use allergy medication as prescribed. Pt has been counseled as to the appropriate use of the medication. Pt to call if allergy symptoms are not controlled with the medication. If using nasal spray, instructions as follows: Nasal spray- use twice daily, one spray per nostril twice daily, after 30 minutes, rinse out nose with saline spray.. Use opposite hand per nostril to spray in the nasal steroid allergy spray. . Sinusitis - Pt has acute infection - pain in face, maxillary region, Pt informed to use decongestant, RX given to patient, sinus rinses also recommended. Call if symptoms do not show improvement. . Asthma Exacerbation - Asthma is a chronic problem for this patient, however, the pt is experiencing an acute exacerbation of the chronic Asthma symptoms. Pt is to receive appropriate treatment as an out patient, but the pt is aware that if symptoms worsen or do not improve, to call [facility] for instructions, or go to the EMERGENCY ROOM if the symptoms are beyond acute control with rescue medications. We have reviewed chronic treatment strategy, symptom control, and plans for acute exacerbations. No changes today to the current treatment plan as the patient is stable, monitor for acute changes. Allergies - chronic - recommended pt to use allergy medication as prescribed. Pt has been counseled as to the appropriate use of the medication. Pt to call if allergy symptoms are not controlled with the medication. If using nasal spray, instructions as follows: Nasal spray- use twice daily, one spray per nostril twice daily, after 30 minutes, rinse out nose with saline spray.. Use opposite hand per nostril to spray in the nasal steroid allergy spray. Esophageal Reflux - the patient has been counseled against excessive intake of caffeine, spicy foods, peppermint, and cinnamon - all of which can exacerbate esophageal reflux. The patient is to take medications as prescribed and call the office if the symptoms are not improving. . URI - Pt advised to increase fluids, vitamin C. Discussed natural and expected course of this diagnosis and need to alert me if symptoms do not follow expected course, or if any worse. RX sent to patient's pharmacy. Sinusitis - Pt has acute infection - pain in face, maxillary region, Pt informed to use decongestant, RX given to patient, sinus rinses also recommended. Call if symptoms do not show improvement. Allergies - chronic - recommended pt to use allergy medication as prescribed. Pt has been counseled as to the appropriate use of the medication. Pt to call if allergy symptoms are not controlled with the medication. If using nasal spray, instructions as follows: Nasal spray- use twice daily, one spray per nostril twice daily, after 30 minutes, rinse out nose with saline spray.. Use opposite hand per nostril to spray in the nasal steroid allergy spray. . Sinusitis - Pt has acute infection - pain in face, maxillary region, Pt informed to use decongestant, RX given to patient, sinus rinses also recommended. Call if symptoms do not show improvement. Allergies/asthma - pt sees an bilingual customer service specialist who recently started her on Qvar and dexilant. They are referring her to pulmonology (Dr. Mcconnell) - pt is to notify clinic with any questions or concerns. probiotic and salt water gargles 3 times a day x 2 days, then twice a day x 2 days flagyl to start if your symptoms worsen or if they do not improve in a day or so. Diarrhea - recommended bland diet, low fat diet, start on probiotic, and rehydrate with gatorade-like product. Pt to call if feeling worse, diarrhea becomes bloody, or does not improve with above recommendations. Pt to call for acute worsening of stomach upset or stomach pain. Diverticulitis - rx for antibiotic sent to pt's pharmacy - pt advised to avoid seeds, nuts, popcorn, or any other food which has been proven to upset the pt's stomach. stop pravastatin x 3 weeks cut losartan in half . pt is on chronic antihypertensive medication - the medication has been adjusted down to attempt to alleviate the low blood pressures. will send bactrim to start over the weekend if you ankle gets any worse called out the gentamycin rinse to [facility] take aleve 1 pill twice a day x 5 days - if your ankle is no better on Monday then we will order a US will refer to Dr. Bustos in [place] for varicose veins. . Allergies - chronic - recommended pt to use allergy medication as prescribed. Pt has been counseled as to the appropriate use of the medication. Pt to call if allergy symptoms are not controlled with the medication. Sinusitis - Pt has acute infection - pain in face, maxillary region, Pt informed to use decongestant, RX given to patient, sinus rinses also recommended. Call if symptoms do not show improvement. Varicose Veins - recommended thigh-high compression, elevation of lower legs while seated. Pt to consider treatment for varicose veins with vein specialist. prednisone 40mg daily x 3 days, then 20mg x 3 days, then 10mg x 3 days breathing treatments - 4 times a day x 3 days, then 3 times a day x 3 days, then twice a day x 3 days, then as needed we will start doxy if we need to start an antibiotic tessalon perles as needed for cough mucinex daily drink 8 ounces of warm water at night before bed to help break up congestion avoid milk/dairy . Bronchitis - acute case of bronchitis identified. Pt has been given antibiotics, breathing treatments as appropriate, and pt has been instructed to call if symptoms are not improved, or if symptoms acutely worsen. Asthma Exacerbation - Asthma is a chronic problem for this patient, however, the pt is experiencing an acute exacerbation of the chronic Asthma symptoms. Pt is to receive appropriate treatment as an out patient, but the pt is aware that if symptoms worsen or do not improve, to call [facility] for instructions, or go to the EMERGENCY ROOM if the symptoms are beyond acute control with rescue medications. We have reviewed chronic treatment strategy, symptom control, and plans for acute exacerbations. No changes today to the current treatment plan as the patient is stable, monitor for acute changes. Levocetirizine - try instead of the zyrtec breathing treatments 3 times a day for the next 2-3 days will send prednisone - to start if symptoms are not getting worse. . Asthma Exacerbation - Asthma is a chronic problem for this patient, however, the pt is experiencing an acute exacerbation of the chronic Asthma symptoms. Pt is to receive appropriate treatment as an out patient, but the pt is aware that if symptoms worsen or do not improve, to call [facility] for instructions, or go to the EMERGENCY ROOM if the symptoms are beyond acute control with rescue medications. We have reviewed chronic treatment strategy, symptom control, and plans for acute exacerbations. No changes today to the current treatment plan as the patient is stable, monitor for acute changes. Allergies - chronic - recommended pt to use allergy medication as prescribed. Pt has been counseled as to the appropriate use of the medication. Pt to call if allergy symptoms are not controlled with the medication. If using nasal spray, instructions as follows: Nasal spray- use twice daily, one spray per nostril twice daily, after 30 minutes, rinse out nose with saline spray.. Use opposite hand per nostril to spray in the nasal steroid allergy spray. . Asthma Exacerbation - Asthma is a chronic problem for this patient, however, the pt is experiencing an acute exacerbation of the chronic Asthma symptoms. Pt is to receive appropriate treatment as an out patient, but the pt is aware that if symptoms worsen or do not improve, to call [facility] for instructions, or go to the EMERGENCY ROOM if the symptoms are beyond acute control with rescue medications. We have reviewed chronic treatment strategy, symptom control, and plans for acute exacerbations. No changes today to the current treatment plan as the patient is stable, monitor for acute changes. . Allergies - chronic - recommended pt to use allergy medication as prescribed. Pt has been counseled as to the appropriate use of the medication. Pt to call if allergy symptoms are not controlled with the medication. If using nasal spray, instructions as follows: Nasal spray- use twice daily, one spray per nostril twice daily, after 30 minutes, rinse out nose with saline spray.. Use opposite hand per nostril to spray in the nasal steroid allergy spray. URI - Pt advised to increase fluids, vitamin C. Discussed natural and expected course of this diagnosis and need to alert me if symptoms do not follow expected course, or if any worse. RX sent to patient's pharmacy. Asthma Exacerbation - Asthma is a chronic problem for this patient, however, the pt is experiencing an acute exacerbation of the chronic Asthma symptoms. Pt is to receive appropriate treatment as an out patient, but the pt is aware that if symptoms worsen or do not improve, to call [facility] for instructions, or go to the EMERGENCY ROOM if the symptoms are beyond acute control with rescue medications. We have reviewed chronic treatment strategy, symptom control, and plans for acute exacerbations. No changes today to the current treatment plan as the patient is stable, monitor for acute changes.
--- OUTSIDE RECORDS SUMMARY | 2019-03-30 10:03 | XMS REPORT | CCD ---
Author Author Leisa Kirkpatrick MD, [facility] Address [address] [place] [address] Phone Care Team Providers Care Dry Mop Maker Name Role Phone PP Unavailable CCM Unavailable Summary Purpose Interface Exchange Insurance Providers Payer name Policy type / Coverage type Covered constitution party ID Effective Begin Date Effective End Date [facility] [id number] Unknown Family history Father Diagnosis Age At Onset Heart Attack Unknown genetic disease Unknown Skin cancer Unknown Hypertension Unknown Mother Diagnosis Age At Onset Stroke Unknown Daughter Diagnosis Age At Onset Asthma Unknown Arthritis Unknown Social History Social History Element Codes Description Effective Dates Marital status Unknown Lev 10/10/2017 Number of children Unknown 2 06/17/[address]: 783182582 Never smoker 06/17/2016 Alcohol history Unknown occasionally [...] Instructions doxycycline hyclate 100 mg tablet RxNorm: 1709132 1 Tablet(s) PO BID 03/21/2019 03/27/2019 Active prednisone 10 mg tablets in a dose pack RxNorm: 699887 1 Tablet(s) PO UD 03/21/2019 03/26/2019 Active albuterol sulfate 2.5 mg/3 mL (0.083 %) solution for nebulization RxNorm: 178984 USE 1 VIAL IN NEBULIZER EVERY 4 HOURS NEEDED 5 03/07/2019 03/16/2019 Inactive prednisone 10 mg tablet RxNorm: 156222 Tablet(s) PO 02/25/2019 03/20/2019 Inactive 40,40,40,20,20,20,10,10,10 Tessalon Perles 100 mg capsule RxNorm: 655213 2 Capsule(s) PO TID as needed cough 02/25/2019 03/01/2019 Inactive Bactrim DS 800 mg-160 mg tablet RxNorm: 613810 1 Tablet(s) PO BID 02/08/2019 02/17/2019 Inactive Flagyl 500 mg tablet RxNorm: 510873 1 Tablet(s) PO TID 02/05/2019 02/14/2019 Inactive clotrimazole 1 % topical cream RxNorm: 661461 1 Application TOP BID 01/23/2019 No Stop Date Active Tamiflu 75 mg capsule RxNorm: 083304 1 Capsule(s) PO daily 01/11/2019 01/20/2019 Inactive Tamiflu 75 mg capsule RxNorm: 493010 1 Capsule(s) PO daily 01/11/2019 01/10/2019 Inactive losartan 25 mg tablet RxNorm: 565412 1 Tablet(s) PO daily 12/24/2018 04/22/2019 Active losartan 25 mg tablet RxNorm: 555114 1 Tablet(s) PO daily 12/24/2018 12/23/2018 Inactive Zithromax Z-Maykel 250 mg tablet RxNorm: 280147 1 Tablet(s) PO UD 10/05/2018 10/09/2018 Inactive prednisone 20 mg tablet RxNorm: 293796 2 Tablet(s) PO daily 10/05/2018 10/09/2018 Inactive Zantac 150 mg tablet RxNorm: 316930 TAKE 1 TABLET BY MOUTH TWICE DAILY 08/22/2018 08/16/2019 Active Generic For:*ZANTAC 150 MG TABLET 08/22/2018 10:42:54 AM lisinopril 10 mg tablet RxNorm: 901396 TAKE 1 TABLET BY MOUTH DAILY 08/22/2018 12/24/2018 Inactive Generic For:ZESTRIL 10 MG TABLET 08/22/2018 10:43:05 AM prednisone 10 mg tablet RxNorm: 447098 Tablet(s) PO 07/24/2018 02/24/2019 Inactive 40,40,30,30,20,20,10,10,5mg every other day x 2 doses Zithromax Z-Maykel 250 mg tablet RxNorm: 315876 1 Tablet(s) PO UD 07/24/2018 10/04/2018 Inactive Protonix 20 mg tablet,delayed release RxNorm: 599931 1 Tablet(s) PO BID 05/23/2018 11/18/2018 Inactive acyclovir 400 mg tablet RxNorm: 634947 2 Tablet(s) PO QID 05/07/2018 05/16/2018 Inactive doxycycline hyclate 100 mg capsule RxNorm: 3682919 1 Capsule(s) PO BID 04/20/2018 04/29/2018 Inactive Bactrim DS 800 mg-160 mg tablet RxNorm: 384745 1 Tablet(s) PO BID 04/16/2018 04/18/2018 Inactive Bactrim DS 800 mg-160 mg tablet RxNorm: 876226 1 Tablet(s) PO BID 04/09/2018 04/15/2018 Inactive lisinopril 10 mg tablet RxNorm: 954559 TAKE 1 TABLET BY MOUTH DAILY 02/21/2018 08/19/2018 Inactive Generic For:ZESTRIL 10 MG TABLET 02/21/2018 11:39:12 AM prednisone 10 mg tablet RxNorm: 802530 Tablet(s) PO 60mg x 2 days, then 40mg x 2 days, then 20mg x 2 days, the 10mg x 2 days, then 5mg every other day x 2 doses 12/08/2017 03/20/2019 Inactive disp qty sufficient doxycycline hyclate 100 mg capsule RxNorm: 2080950 1 Capsule(s) PO BID 12/08/2017 12/17/2017 Inactive albuterol sulfate 2.5 mg/3 mL (0.083 %) solution for nebulization RxNorm: 901512 3 Milliliter(s) INH Q4-6H 12/06/2017 03/06/2019 Inactive Zithromax Z-Maykel 250 mg tablet RxNorm: 889608 1 Tablet(s) PO UD 12/01/2017 04/15/2018 Inactive prednisone 20 mg tablet RxNorm: 539520 Tablet(s) PO 40mg x 2 days, then 20mg x 2 days, then 10mg x 2 days 12/01/2017 03/20/2019 Inactive levocetirizine 5 mg tablet RxNorm: 439999 1 Tablet(s) PO daily 11/13/2017 05/11/2018 Inactive Protonix 20 mg tablet,delayed release RxNorm: 687158 1 Tablet(s) PO BID 11/13/2017 05/11/2018 Inactive Protonix 20 mg tablet,delayed release RxNorm: 373710 1 Tablet(s) PO BID 10/10/2017 11/08/2017 Inactive Tessalon Perles 100 mg capsule RxNorm: 461004 1-2 Capsule(s) PO TID as needed 10/10/2017 10/14/2017 Inactive prednisone 20 mg tablet RxNorm: 865941 Tablet(s) PO 40mg x 2 days, then 20mg x 2 days, then 10mg x 2 days 09/20/2017 11/30/2017 Inactive doxycycline hyclate 100 mg capsule RxNorm: 5389982 1 Capsule(s) PO BID 09/20/2017 09/26/2017 Inactive Zithromax Z-Maykel 250 mg tablet RxNorm: 980860 1 Tablet(s) PO UD 09/12/2017 10/09/2017 Inactive albuterol sulfate 2.5 mg/3 mL (0.083 %) solution for nebulization RxNorm: 230186 3 Milliliter(s) INH Q4-6H 09/12/2017 12/05/2017 Inactive prednisone 20 mg tablet RxNorm: 301501 2 Tablet(s) PO daily 09/12/2017 09/16/2017 Inactive lisinopril 10 mg tablet RxNorm: 700102 1 Tablet(s) PO daily 08/28/2017 02/20/2018 Inactive Zantac 150 mg tablet RxNorm: 624021 1 Tablet(s) PO BID 08/28/2017 08/21/2018 Inactive Cipro 500 mg tablet RxNorm: 842555 1 Tablet(s) PO BID 08/18/2017 08/26/2017 Inactive metronidazole 500 mg tablet RxNorm: 058998 1 Tablet(s) PO TID 08/18/2017 08/26/2017 Inactive prednisone 20 mg tablet RxNorm: 002928 2 Tablet(s) PO BID 06/12/2017 06/16/2017 Inactive Cipro 500 mg tablet RxNorm: 236257 1 Tablet(s) PO BID 05/04/2017 05/13/2017 Inactive metronidazole 500 mg tablet RxNorm: 108504 1 Tablet(s) PO TID 05/04/2017 05/13/2017 Inactive Zantac 150 mg tablet RxNorm: 931067 1 Tablet(s) PO BID 04/27/2017 08/24/2017 Inactive prednisone 20 mg tablet RxNorm: 815969 2 Tablet(s) PO BID start if getting worse 04/21/2017 04/25/2017 Inactive levocetirizine 5 mg tablet RxNorm: 357526 1 Tablet(s) PO daily 04/21/2017 05/20/2017 Inactive prednisone 20 mg tablet RxNorm: 554931 1 Tablet(s) PO BID Start with 1 pill daily and see how effective it is - if still not effective increase to twice a day as discussed 03/03/2017 03/07/2017 Inactive lisinopril 10 mg tablet RxNorm: 472110 1 Tablet(s) PO daily 03/01/2017 08/27/2017 Inactive ciprofloxacin 0.3 % eye drops RxNorm: 675559 2 Drop(s) OPH QID 02/13/2017 02/17/2017 Inactive Zithromax 250 mg tablet RxNorm: 736744 1 Tablet(s) PO daily 02/13/2017 02/15/2017 Inactive Zithromax Z-Maykel 250 mg tablet RxNorm: 521601 1 Tablet(s) PO UD 02/09/2017 02/08/2017 Inactive Zithromax Z-Maykel 250 mg tablet RxNorm: 764209 1 Tablet(s) PO UD 02/09/2017 09/11/2017 Inactive Premarin 0.625 mg/gram vaginal cream RxNorm: 940228 1 Application VAG BIW 12/30/2016 No Stop Date Active Zantac 150 mg tablet RxNorm: 540826 1 Tablet(s) PO BID 12/05/2016 04/03/2017 Inactive prednisone 20 mg tablet RxNorm: 463976 2 Tablet(s) PO daily 12/05/2016 12/09/2016 Inactive Zithromax Z-Maykle 250 mg tablet RxNorm: 566131 Tablet(s) PO UD 12/05/2016 02/08/2017 Inactive lisinopril 10 mg tablet RxNorm: 418185 1 Tablet(s) PO daily 10/31/2016 02/27/2017 Inactive Tessalon Perles 100 mg capsule RxNorm: 042677 2 Capsule(s) PO TID as needed dyspnea 09/23/2016 09/27/2016 Inactive prednisone 20 mg tablet RxNorm: 018279 2 Tablet(s) PO daily 09/23/2016 09/27/2016 Inactive Qvar 80 mcg/actuation Metered Aerosol oral inhaler RxNorm: 710944 1 INH BID started by her early breastfeeding care specialist 08/02/2016 09/12/2016 Inactive Zithromax Z-Maykel 250 mg tablet RxNorm: 103158 Tablet(s) PO UD 07/08/2016 12/04/2016 Inactive Tessalon Perles 100 mg capsule RxNorm: 317726 2 Capsule(s) PO TID as needed dyspnea 07/08/2016 07/12/2016 Inactive prednisone 20 mg tablet RxNorm: 525520 1 Tablet(s) PO UD 07/08/2016 09/22/2016 Inactive Premarin 0.625 mg/gram vaginal cream RxNorm: 056297 1 Application VAG BIW 06/21/2016 12/29/2016 Inactive Dulera 200 mcg-5 mcg/actuation HFA aerosol inhaler RxNorm: 6138999 2 INH Q2H 06/17/2016 No Stop Date Active lisinopril 10 mg tablet RxNorm: 506358 1 Tablet(s) PO daily 06/17/2016 10/14/2016 Inactive olopatadine 0.1 % eye drops RxNorm: 5280883 Drop(s) OPH PRN No Start Date Active ProAir HFA 90 mcg/actuation aerosol inhaler RxNorm: 649250 2 Puff(s) INH PRN No Start Date Active Zyrtec 10 mg capsule RxNorm: 6072176 1 Capsule(s) PO daily No Start Date Active lutein 20 mg capsule RxNorm: 850927 1 Capsule(s) PO daily No Start Date Active [place] Oil 1,000 mg capsule RxNorm: 1 Capsule(s) PO daily No Start Date Active montelukast 10 mg tablet RxNorm: 780030 1 Tablet(s) PO daily No Start Date Active Vitamin D3 1,000 unit capsule RxNorm: 395706 Capsule(s) PO No Start Date Active B12 sublingual RxNorm: 41359 sublingual No Start Date Active pravastatin 20 mg tablet RxNorm: 865705 1 Tablet(s) PO daily No Start Date Active zinc picolinate 50 mg tablet RxNorm: 1 Tablet(s) PO daily No Start Date Active chromium picolinate 200 mcg capsule RxNorm: 463996 1 Capsule(s) PO daily No Start Date Active magnesium RxNorm: 1 PO BID No Start Date Active premarin 0.5% Vaginal cream RxNorm: 1 VAG daily No Start Date Active Xolair 150 mg subcutaneous solution RxNorm: 2268143 1 SQ monthly No Start Date Active folate #7-pc dha-pe viy-RZLC-rppybh-IF-multivitamin #46 oral RxNorm: oral No Start Date Active Dulera 200 mcg-5 mcg/actuation HFA aerosol inhaler RxNorm: 0494137 2 INH Q4H No Start Date 06/16/2016 Inactive lisinopril 10 mg tablet RxNorm: 899315 1 Tablet(s) PO daily No Start Date [...] Item Code Result Date C A/B FLU [id number] Influenza A Scr TNP:Duplicate Order 07/25/2018 C A/B FLU [id number] Influenza B Scr TNP:Duplicate Order 07/25/2018 C A/B FLU [id number] Influenza Intrp B AG:PRID:PT:NOSE:NOM:IF TNP:Duplicate Order 07/25/2018 C A/B FLU [id number] IC OK? TNP:Duplicate Order 07/25/2018 C RAP A SC [id number] Strep A TNP:Lab Request 02/09/2017 C RAP A SC [id number] IC OK? TNP:Lab Request 02/09/2017 Review of [...] 1: 142/80 Code: 8480-6 BMI: 29.2 Code: 17155-0 Heart Rate 1: 107 bpm Height: 5'4" SpO2: 95% Temperature: 36.8 (C) / 98.2 (F) Weight: 170 lbs 02/25/2019 Blood Pressure 1: 142/76 Code: 8480-6 Heart Rate 1: 105 bpm Height: SpO2: 98% Temperature: 37.2 (C) / 99.0 (F) Weight: 02/08/2019 Blood Pressure 1: 122/76 Code: 8480-6 BMI: 28.8 Code: 92260-1 Heart Rate 1: 94 bpm Height: 5'4" SpO2: 98% Weight: 168 lbs 02/05/2019 Blood Pressure 1: 126/70 Code: 8480-6 BMI: 28.5 Code: 92941-6 Heart Rate 1: 90 bpm Height: 5'4" SpO2: 98% Weight: 166 lbs 01/23/2019 Blood Pressure 1: 122/64 Code: 8480-6 BMI: 28.8 Code: 29597-9 Heart Rate 1: 105 bpm Height: 5'4" SpO2: 98% Weight: 168 lbs 01/09/2019 Blood Pressure 1: 134/80 Code: 8480-6 BMI: 28.8 Code: 90981-3 Heart Rate 1: 98 bpm Height: 5'4" SpO2: 100% Weight: 168 lbs 10/05/2018 Blood Pressure 1: 150/84 Code: 8480-6 BMI: 29.9 Code: 02414-0 Heart Rate 1: 78 bpm Height: 5'4" SpO2: 91% Weight: 174 lbs 08/20/2018 Blood Pressure 1: 142/86 Code: 8480-6 BMI: 29.9 Code: 17172-4 Heart Rate 1: 79 bpm Height: 5'4" SpO2: 98% Weight: 174 lbs 07/24/2018 Blood Pressure 1: 150/84 Code: 8480-6 BMI: 29.9 Code: 96672-0 Heart Rate 1: 116 bpm Height: 5'4" SpO2: 96% Temperature: 37.0 (C) / 98.6 (F) Weight: 174 lbs 05/07/2018 Blood Pressure 1: 130/80 Code: 8480-6 BMI: 29.9 Code: 78720-4 Heart Rate 1: 93 bpm Height: 5'4" SpO2: 95% Weight: 174 lbs 04/20/2018 Blood Pressure 1: 134/70 Code: 8480-6 Heart Rate 1: 86 bpm Height: SpO2: 98% Weight: 04/09/2018 Blood Pressure 1: 132/76 Code: 8480-6 BMI: 29.5 Code: 33876-2 Heart Rate 1: 80 bpm Height: 5'4" SpO2: 98% Weight: 172 lbs 12/08/2017 Blood Pressure 1: 148/76 Code: 8480-6 BMI: 29.9 Code: 02524-8 Heart Rate 1: 97 bpm Height: 5'4" SpO2: 97% Weight: 174 lbs 12/01/2017 Blood Pressure 1: 124/74 Code: 8480-6 BMI: 29.9 Code: 11201-0 Heart Rate 1: 110 bpm Height: 5'4" SpO2: 97% Temperature: 37.4 (C) / 99.4 (F) Weight: 174 lbs 10/10/2017 Blood Pressure 1: 128/80 Code: 8480-6 BMI: 29.8 Code: 11580-7 Heart Rate 1: 91 bpm Height: 5'4" SpO2: 98% Temperature: 36.5 (C) / 97.7 (F) Weight: 173 lbs 8 oz 09/20/2017 Blood Pressure 1: 152/88 Code: 8480-6 BMI: 29.9 Code: 67742-4 Heart Rate 1: 87 bpm Height: 5'4" SpO2: 96% Weight: 174 lbs 09/12/2017 Blood Pressure 1: 134/74 Code: 8480-6 BMI: 29.9 Code: 02527-7 Heart Rate 1: 90 bpm Height: 5'4" SpO2: 96% Weight: 174 lbs 08/18/2017 Blood Pressure 1: 128/68 Code: 8480-6 Heart Rate 1: 88 bpm Height: SpO2: 97% Weight: 06/12/2017 Blood Pressure 1: 130/70 Code: 8480-6 BMI: 29.2 Code: 42875-1 Heart Rate 1: 94 bpm Height: 5'4" SpO2: 95% Weight: 170 lbs 05/04/2017 Blood Pressure 1: 138/80 Code: 8480-6 BMI: 29.9 Code: 08562-4 Heart Rate 1: 84 bpm Height: 5'4" SpO2: 97% Weight: 174 lbs 04/21/2017 Blood Pressure 1: 130/72 Code: 8480-6 BMI: 29.9 Code: 43924-8 Heart Rate 1: 90 bpm Height: 5'4" SpO2: 96% Weight: 174 lbs 03/03/2017 Blood Pressure 1: 136/78 Code: 8480-6 BMI: 29.9 Code: 47639-9 Heart Rate 1: 91 bpm Height: 5'4" SpO2: 96% Weight: 174 lbs 02/13/2017 Blood Pressure 1: 116/74 Code: 8480-6 BMI: 29.2 Code: 39873-3 Heart Rate 1: 91 bpm Height: 5'4" SpO2: 94% Weight: 170 lbs 02/09/2017 Blood Pressure 1: 120/72 Code: 8480-6 BMI: 29.0 Code: 29575-2 Heart Rate 1: 100 bpm Height: 5'4" SpO2: 97% Temperature: 37.4 (C) / 99.3 (F) Weight: 169 lbs 12/14/2016 Blood Pressure 1: 130/72 Code: 8480-6 BMI: 29.5 Code: 08740-9 Heart Rate 1: 100 bpm Height: 5'4" SpO2: 95% Weight: 172 lbs 12/05/2016 Blood Pressure 1: 136/78 Code: 8480-6 BMI: 29.2 Code: 88203-7 Heart Rate 1: 117 bpm Height: 5'4" SpO2: 97% Weight: 170 lbs 09/23/2016 Blood Pressure 1: 130/74 Code: 8480-6 BMI: 30.2 Code: 53514-2 Heart Rate 1: 102 bpm Height: 5'4" SpO2: 94% Weight: 176 lbs 09/14/2016 Blood Pressure 1: 128/74 Code: 8480-6 BMI: 29.4 Code: 25530-3 Heart Rate 1: 90 bpm Height: 5'4" SpO2: 97% Weight: 171 lbs 07/08/2016 Blood Pressure 1: 118/64 Code: 8480-6 BMI: 28.8 Code: 81747-2 Heart Rate 1: 115 bpm Height: 5'4" SpO2: 97% Weight: 168 lbs 06/17/2016 Blood Pressure 1: 144/86 Code: 8480-6 BMI: 29.5 Code: 51453-9 Heart Rate 1: 94 bpm Height: 5'4" [...] Encounters Encounter Performer Location Codes Date () 09817 EST. PATIENT, LEVEL III Diagnosis: Cough[ICD10: R05] Diagnosis: Other acute sinusitis[ICD10: J01.80] Lisseth Keys MD, [facility] CPT-4: 72806 03/21/2019 45606 EST. PATIENT, LEVEL III Diagnosis: Acute bronchitis due to other specified organisms[ICD10: J20.8] Diagnosis: Moderate persistent asthma with (acute) exacerbation[ICD10: J45.41] [facility] CPT-4: 77906 02/25/2019 50040 EST. PATIENT, LEVEL III Diagnosis: Varicose veins of left lower extremity with pain[ICD10: I83.812] Diagnosis: Other allergic rhinitis[ICD10: J30.89] Diagnosis: Other chronic sinusitis[ICD10: J32.8] Leisa Keys MD, [facility] CPT- 4: 70883 02/08/2019 91878 EST. PATIENT, LEVEL III Diagnosis: Left lower quadrant pain[ICD10: R10.32] Diagnosis: Diarrhea, unspecified[ICD10: R19.7] Leisa Keys MD, [facility] CPT- 4: 38928 02/05/2019 67243 EST. PATIENT, LEVEL III Diagnosis: Tinea unguium[ICD10: B35.1] Diagnosis: Localized edema[ICD10: R60.0] Leisa Keys MD, [facility] CPT-4: 02456 01/23/2019 59010 EST. PATIENT, LEVEL III Diagnosis: Essential (primary) hypertension[ICD10: I10] Diagnosis: Mixed hyperlipidemia[ICD10: E78.2] Leisa Keys MD, [facility] CPT-4: 61982 01/09/2019 (42034) 03752 EST. PATIENT, LEVEL III Diagnosis: Cough[ICD10: R05] Diagnosis: Moderate persistent asthma with (acute) exacerbation[ICD10: J45.41] Lisseth Keys MD, [facility] CPT-4: 00424 10/05/2018 44289 EST. PATIENT, LEVEL III Diagnosis: Diverticulitis of large intestine without perforation or abscess with bleeding[ICD10: K57.33] Leisa Keys MD, [facility] CPT-4: 40619 08/20/2018 14822 EST. PATIENT, LEVEL IV Diagnosis: Other acute sinusitis[ICD10: J01.80] Diagnosis: Other allergic rhinitis[ICD10: J30.89] Leisa Keys MD, [facility] CPT- 4: 45560 07/24/2018 29664 EST. PATIENT, LEVEL III Diagnosis: Zoster without complications[ICD10: B02.9] Lisseth Keys MD, [facility] CPT-4: 77903 05/07/2018 98954 EST. PATIENT, LEVEL IV Diagnosis: Cough[ICD10: R05] Diagnosis: Fever presenting with conditions classified elsewhere[ICD10: R50.81] Leisa Keys MD, [facility] CPT-4: 80976 04/20/2018 46962 EST. PATIENT, LEVEL III Diagnosis: Other fatigue[ICD10: R53.83] Diagnosis: Vitamin D deficiency, unspecified[ICD10: E55.9] Diagnosis: Paresthesia of skin[ICD10: R20.2] Diagnosis: Mixed hyperlipidemia[ICD10: E78.2] Diagnosis: Cellulitis of left toe[ICD10: L03.032] Diagnosis: Essential (primary) hypertension[ICD10: I10] Leisa Keys MD, [facility] CPT-4: 12452 04/09/2018 81768 EST. PATIENT, LEVEL IV Diagnosis: Acute bronchitis due to other specified organisms[ICD10: J20.8] Diagnosis: Moderate persistent asthma with (acute) exacerbation[ICD10: J45.41] Leisa Keys MD [facility] CPT-4: 31248 12/08/2017 87003 EST. PATIENT, LEVEL IV Diagnosis: Other acute sinusitis[ICD10: J01.80] Diagnosis: Other allergic rhinitis[ICD10: J30.89] Diagnosis: Moderate persistent asthma with (acute) exacerbation[ICD10: J45.41] Leisa Kyes MD [facility] CPT-4: 07065 12/01/2017 32201 EST. PATIENT, LEVEL IV Diagnosis: Moderate persistent asthma with (acute) exacerbation[ICD10: J45.41] Diagnosis: Other allergic rhinitis[ICD10: J30.89] Diagnosis: Gastro-esophageal reflux disease without esophagitis[ICD10: K21.9] Leisa Keys MD [facility] CPT-4: 47553 10/10/2017 08042 EST. PATIENT, LEVEL III Diagnosis: Moderate persistent asthma with (acute) exacerbation[ICD10: J45.41] Diagnosis: Other allergic rhinitis[ICD10: J30.89] Diagnosis: Mixed hyperlipidemia[ICD10: E78.2] Leisa Keys MD [facility] CPT-4: 69201 09/20/2017 17813 EST. PATIENT, LEVEL IV Diagnosis: Acute laryngopharyngitis[ICD10: J06.0] Diagnosis: Other acute sinusitis[ICD10: J01.80] Diagnosis: Other allergic rhinitis[ICD10: J30.89] Leisa Keys MD, [facility] CPT- 4: 22165 09/12/2017 47834 EST. PATIENT, LEVEL IV Diagnosis: Diverticulitis of large intestine without perforation or abscess with bleeding[ICD10: K57.33] Leisa Keys MD [facility] CPT-4: 46575 08/18/2017 18390 EST. PATIENT, LEVEL IV Diagnosis: Other allergic rhinitis[ICD10: J30.89] Diagnosis: Moderate persistent asthma with (acute) exacerbation[ICD10: J45.41] Leisa Keys MD, [facility] CPT-4: 69436 06/12/2017 05602 EST. PATIENT, LEVEL IV Diagnosis: Diverticulitis of large intestine without perforation or abscess with bleeding[ICD10: K57.33] Leisa Keys MD, [facility] CPT-4: 59890 05/04/2017 05084 EST. PATIENT, LEVEL IV Diagnosis: Other allergic rhinitis[ICD10: J30.89] Diagnosis: Moderate persistent asthma with (acute) exacerbation[ICD10: J45.41] Leisa Keys MD, [facility] CPT-4: 69934 04/21/2017 93238 EST. PATIENT, LEVEL III Diagnosis: Moderate persistent asthma with (acute) exacerbation[ICD10: J45.41] Leisa Keys MD, [facility] CPT-4: 67562 03/03/2017 69546 EST. PATIENT, LEVEL IV Diagnosis: Moderate persistent asthma, uncomplicated[ICD10: J45.40] Diagnosis: Other mucopurulent conjunctivitis, left eye[ICD10: H10.022] Diagnosis: Acute laryngopharyngitis[ICD10: J06.0] Leisa Keys MD, [facility] CPT- 4: 58260 02/13/2017 48990 EST. PATIENT, LEVEL IV Diagnosis: Acute laryngopharyngitis[ICD10: J06.0] Diagnosis: Other acute sinusitis[ICD10: J01.80] Diagnosis: Other allergic rhinitis[ICD10: J30.89] Leisa Keys MD, [facility] CPT- 4: 54140 02/09/2017 39610 EST. PATIENT, LEVEL III Diagnosis: Other allergic rhinitis[ICD10: J30.89] Diagnosis: Moderate persistent asthma, uncomplicated[ICD10: J45.40] Leisa Keys MD, [facility] CPT-4: 24142 12/14/2016 54488 EST. PATIENT, LEVEL III Diagnosis: Other acute sinusitis[ICD10: J01.80] Diagnosis: Other allergic rhinitis[ICD10: J30.89] Diagnosis: Moderate persistent asthma, uncomplicated[ICD10: J45.40] Diagnosis: Gastro-esophageal reflux disease without esophagitis[ICD10: K21.9] Leisa Keys MD, [facility] CPT-4: 74969 12/05/2016 13152 EST. PATIENT, LEVEL IV Diagnosis: Other allergic rhinitis[ICD10: J30.89] Diagnosis: Moderate persistent asthma, uncomplicated[ICD10: J45.40] Diagnosis: Cough[ICD10: R05] Leisa Keys MD, [facility] CPT-4: 26779 09/23/2016 60195 EST. PATIENT, LEVEL IV Diagnosis: Moderate persistent asthma, uncomplicated[ICD10: J45.40] Diagnosis: Other allergic rhinitis[ICD10: J30.89] Leisa Keys MD, [facility] CPT- 4: 79123 09/14/2016 82733 EST. PATIENT, LEVEL IV Diagnosis: Other acute sinusitis[ICD10: J01.80] Leisa Keys MD, [facility] CPT- 4: 78938 07/08/2016 (74109) PREV VISIT NEW AGE 40-64 Diagnosis: Encounter for gynecological examination (general) (routine) without abnormal findings[ICD10: Z01.419] Diagnosis: Moderate persistent asthma, uncomplicated[ICD10: J45.40] Diagnosis: Essential (primary) hypertension[ICD10: I10] Diagnosis: Mixed hyperlipidemia[ICD10: E78.2] Leisa Keys MD, [facility] CPT-4: 35052 06/17/2016 Plan of Care Planned Activity Notes [...] changes. 02/25/2019 Appointment: Leisa Kirkpatrick WPtel: [phone] [facility] (30 min) Complex 02/25/2019 Patient Education: Patient [...] specialist. 02/08/2019 Appointment: Leisa Kirkpatrick WPtel: [phone] [facility] (30 min) Complex 02/08/2019 Patient Education: Patient [...] stomach. 02/05/2019 Appointment: Leisa Kirkpatrick WPtel: [phone] [facility] (30 min) Complex 02/05/2019 Patient Education: Patient [...] or concerns. 01/23/2019 Appointment: Leisa Kirkpatrick WPtel: [phone] [facility] (30 min) Complex 01/23/2019 Patient Education: Patient Medication Summary Completed 01/23/2019 Visit Plan: pt is on chronic antihypertensive medication - the medication has been adjusted down to attempt to alleviate the low blood pressures. 01/09/2019 Appointment: Leisa Kirkpatrick WPtel: [phone] [facility] (30 min) Complex 01/09/2019 Patient Education: Patient [...] changes. 10/05/2018 Appointment: Lisseth Greene WPtel: [phone] [phone] [place] (15 min) Moderate 10/05/2018 Patient Education: Patient Medication Summary Completed 10/05/2018 Visit Plan: Diverticulitis - rx for antibiotic sent to pt's pharmacy - pt advised to avoid seeds, nuts, popcorn, or any other food which has been proven to upset the pt's stomach. 08/20/2018 Appointment: Leisa Kirkpatrick WPtel: [phone] [facility] [place] (15 min) Moderate 08/20/2018 Patient Education: [...] spray. 07/24/2018 Appointment: Leisa Kirkpatrick WPtel: [phone] [facility] (15 min) Moderate 07/24/2018 Patient Education: Patient Medication Summary Completed 07/24/2018 Appointment: Leisa Kirkpatrick WPtel: [phone] [facility] (30 min) Complex 05/14/2018 Visit Plan: Shingles [...] contagious. 05/07/2018 Appointment: Lisseth Greene WPtel: [phone] [phone] [place] (15 min) Moderate 05/07/2018 Patient Education: [...] concerns. 04/20/2018 Appointment: Leisa Kirkpatrick WPtel: [phone] [facility] (15 min) Moderate 04/20/2018 Patient Education: Patient [...] as indicated. 04/09/2018 Appointment: Leisa Kirkpatrick WPtel: [address] [place], [place] [phone] (15 min) Moderate 04/09/2018 Patient Education: Patient Medication Summary Completed 04/09/2018 Patient Education: Patient Medication Summary Completed 04/09/2018 Care Plan: B12 Pending 04/09/2018 Care Plan: Folate Pending 04/09/2018 Care Plan: Vitamin D 25 Oh Pending 04/09/2018 Care Plan: Lipid Pending 04/09/2018 Care Plan: SCREENINGMAMMOGRAPHYDIGITAL LOINC : 76043-9 Pending 04/09/2018 Visit Plan: Bronchitis - acute [...] changes. 12/08/2017 App[facility]ment[phone] [facility] ([facility] min) Complex 12/08/2017 Patient Education: Patient [...] changes. 12/01/2017 Appointment: [facility] Kirk[facility] [phone] [facility] (15 min) Moderate 12/01/2017 Patient Education: Patient [...] not improving. 10/10/2017 Appointment: Leisa Kirkpatrick WPtel: [address] [place], [place] [id number] (15 min) Moderate 10/10/2017 Patient Education: Patient Medication Summary Completed 10/10/2017 Appointment: Leisa Kirkpatrick WPtel: [facility] [place] (15 min) Moderate 10/06/2017 Visit Plan: Asthma [...] to medications. 09/20/2017 Appointment: Leisa Kirkpatrick WPtel: [phone] [facility] (15 min) Moderate 09/20/2017 Patient Education: Patient [...] spray. 09/12/2017 Appointment: Leisa Kirkpatrick WPtel: [phone] [facility] (15 min) Moderate 09/12/2017 Patient Education: Patient Medication Summary Completed 09/12/2017 Patient Education: Obesity Completed 09/12/2017 Visit Plan: Diverticulitis - rx for antibiotic sent to pt's pharmacy - pt advised to avoid seeds, nuts, popcorn, or any other food which has been proven to upset the pt's stomach. 08/18/2017 Appointment: [facility] [phone] [facility] (30 min) Complex 08/18/2017 Patient Education: Patient [...] spray. 06/12/2017 Appointment: [facility] [phone] [facility] (10 min) Simple 06/12/2017 Patient Education: Patient Medication Summary Completed 06/12/2017 Visit Plan: Diverticulitis - rx for antibiotic sent to pt's pharmacy - pt advised to avoid seeds, nuts, popcorn, or any other food which has been proven to upset the pt's stomach. 05/04/2017 Appointment: [facility]patrick [facility] [phone] [facility] (30 min) Complex 05/04/2017 Patient Education: Patient [...] spray. 04/21/2017 Appointment: [facility] Kirkpatrick [facility]el[facility] [phone] [facility] (15 min) Moderate 04/21/2017 Patient Education: Patient [...] changes. 03/03/2017 Appointment: [facility] Kirkpatrick [facility]el[facility] [phone] [facility] (30 min) Complex 03/03/2017 Patient Education: Patient [...] daily. 02/13/2017 Appointment: [facility] Kirkpatrick [facility]Ptel[facility] [phone] [facility] (10 min) Simple 02/13/2017 Patient Education: Patient [...] spray. 02/09/2017 Appointment: [facility] Kirkpatrick [facility]Ptel[facility] [phone] [facility] (15 min) Moderate 02/09/2017 Patient Education: Patient [...] spray. 12/14/2016 Appointment: [facility] Kirkpatrick [facility]Ptel[facility] [phone] [facility] (15 min) Moderate 12/14/2016 Patient Education: Patient [...] improving. 12/05/2016 Appointment: [facility] Kirkpatrick [facility]el[facility] [phone] [facility] (30 min) Complex 12/05/2016 Patient Education: Patient [...] changes. 09/23/2016 Appointment: Lisseth Greene WPtel: [phone] [phone] (30 min) Complex 09/23/2016 Patient Education: Patient [...] improvement. Allerg ies/asthma - pt sees an early breastfeeding care specialist who recently started her on Qvar and dexilant. They are referring her to pulmonology (Dr. Mcconnell) - pt is to notify clinic with any questions or concerns. 07/08/2016 Appointment: [facility] Greene [facility]el[facility] [phone] [id number] (15 min) Moderate 07/08/2016 Patient Education: Patient [...] to medications. 06/17/2016 Appointment: Lisseth Greene WPtel: [facility] [id number] New Patient 06/17/2016 Patient Education: Patient Medication [...] show improvement. Allergies/asthma - pt sees an early breastfeeding care specialist who recently started her on Qvar [...] worse called out the gentamycin rinse to [facility] take aleve 1 pill twice a day x 5 days - if your ankle is no better on Monday then we will order a US will refer to Dr. Bustos in [place] for varicose veins. . Allergies - chronic [...]
--- OUTSIDE RECORDS SUMMARY | 2019-03-30 10:07 | XMS REPORT | CCD ---
Author Author Leisa Kirkpatrick MD, [facility] Address [address] [place] [address] Phone Care Team Providers Care Upper Cutter Name Role Phone PP Unavailable CCM Unavailable Summary Purpose Interface Exchange Insurance Providers Payer name Policy type / Coverage type Covered republican ID Effective Begin Date Effective End Date [facility] [id number] Unknown Family history Father Diagnosis Age At Onset Heart Attack Unknown genetic disease Unknown Skin cancer Unknown Hypertension Unknown Mother Diagnosis Age At Onset Stroke Unknown Daughter Diagnosis Age At Onset Asthma Unknown Arthritis Unknown Social History Social History Element Codes Description Effective Dates Marital status Unknown Lev 10/10/2017 Number of children Unknown 2 06/17/[address]: 246706932 Never smoker 06/17/2016 Alcohol history Unknown occasionally drinks alcohol 06/17/2016 Allergies, Adverse Reactions, Alerts Substance Reaction Codes Entered Date Inactivated Date Status ceclor RxNorm: 2176 06/17/2016 No Inactive Date Active CODEINE RxNorm: 2670 06/17/2016 No Inactive Date Active Past Medical History Illness Codes Condition Status Onset Date Resolved Date Acute bronchitis due to other specified organisms ICD-9: 466.0 ICD-10: J20.8 Active 12/08/2017 Unknown Moderate persistent asthma with (acute) exacerbation ICD-9: 493.12 ICD-10: J45.41 Active 03/03/2017 Unknown Other acute sinusitis ICD- 9: 461.8 ICD-10: J01.80 Active 07/07/2016 Unknown Other allergic rhinitis ICD-9: 477.8 ICD-10: [...] 9: 272.2 ICD-10: E78.2 Active 01/09/2019 Unknown Cough ICD-9: 786.2 ICD-10: R05 Active 09/22/2016 Unknown Diverticulitis of large intestine without perforation [...] Problems Condition Codes Effective Dates Condition Status Acute bronchitis due to other specified organisms ICD-9: 466.0 ICD-10: J20.8 12/08/2017 Active Moderate persistent asthma with (acute) exacerbation ICD-9: 493.12 ICD-10: J45.41 03/03/2017 Active Other acute sinusitis ICD- 9: 461.8 ICD-10: J01.80 07/07/2016 Active Other allergic rhinitis ICD-9: 477.8 ICD-10: [...] ICD- 9: 272.2 ICD-10: E78.2 01/09/2019 Active Cough ICD-9: 786.2 ICD-10: R05 09/22/2016 Active Diverticulitis of large intestine without perforation [...] Start Date Stop Date Status Fill Instructions albuterol sulfate 2.5 mg/3 mL (0.083 %) solution for nebulization RxNorm: 167862 USE 1 VIAL IN NEBULIZER EVERY 4 HOURS NEEDED 5 03/07/2019 03/16/2019 Active prednisone 10 mg tablet RxNorm: 932574 Tablet(s) PO 02/25/2019 No Stop Date Active 40,40,40,20,20,20,10,10,10 Tessalon Perles 100 mg capsule RxNorm: 329091 2 Capsule(s) PO TID as needed cough 02/25/2019 03/01/2019 Inactive Bactrim DS 800 mg-160 mg tablet RxNorm: 488759 1 Tablet(s) PO BID 02/08/2019 02/17/2019 Inactive Flagyl 500 mg tablet RxNorm: 439139 1 Tablet(s) PO TID 02/05/2019 02/14/2019 Inactive clotrimazole 1 % topical cream RxNorm: 510896 1 Application TOP BID 01/23/2019 No Stop Date Active Tamiflu 75 mg capsule RxNorm: 770014 1 Capsule(s) PO daily 01/11/2019 01/20/2019 Inactive Tamiflu 75 mg capsule RxNorm: 562367 1 Capsule(s) PO daily 01/11/2019 01/10/2019 Inactive losartan 25 mg tablet RxNorm: 565926 1 Tablet(s) PO daily 12/24/2018 04/22/2019 Active losartan 25 mg tablet RxNorm: 217864 1 Tablet(s) PO daily 12/24/2018 12/23/2018 Inactive Zithromax Z-Maykel 250 mg tablet RxNorm: 492256 1 Tablet(s) PO UD 10/05/2018 10/09/2018 Inactive prednisone 20 mg tablet RxNorm: 957654 2 Tablet(s) PO daily 10/05/2018 10/09/2018 Inactive Zantac 150 mg tablet RxNorm: 393904 TAKE 1 TABLET BY MOUTH TWICE DAILY 08/22/2018 08/16/2019 Active Generic For:*ZANTAC 150 MG TABLET 08/22/2018 10:42:54 AM lisinopril 10 mg tablet RxNorm: 245313 TAKE 1 TABLET BY MOUTH DAILY 08/22/2018 12/24/2018 Inactive Generic For:ZESTRIL 10 MG TABLET 08/22/2018 10:43:05 AM prednisone 10 mg tablet RxNorm: 973207 Tablet(s) PO 07/24/2018 02/24/2019 Inactive 40,40,30,30,20,20,10,10,5mg every other day x 2 doses Zithromax Z-Maykel 250 mg tablet RxNorm: 173333 1 Tablet(s) PO UD 07/24/2018 10/04/2018 Inactive Protonix 20 mg tablet,delayed release RxNorm: 304108 1 Tablet(s) PO BID 05/23/2018 11/18/2018 Inactive acyclovir 400 mg tablet RxNorm: 872795 2 Tablet(s) PO QID 05/07/2018 05/16/2018 Inactive doxycycline hyclate 100 mg capsule RxNorm: 6026568 1 Capsule(s) PO BID 04/20/2018 04/29/2018 Inactive Bactrim DS 800 mg-160 mg tablet RxNorm: 494237 1 Tablet(s) PO BID 04/16/2018 04/18/2018 Inactive Bactrim DS 800 mg-160 mg tablet RxNorm: 363790 1 Tablet(s) PO BID 04/09/2018 04/15/2018 Inactive lisinopril 10 mg tablet RxNorm: 289709 TAKE 1 TABLET BY MOUTH DAILY 02/21/2018 08/19/2018 Inactive Generic For:ZESTRIL 10 MG TABLET 02/21/2018 11:39:12 AM prednisone 10 mg tablet RxNorm: 529670 Tablet(s) PO 60mg x 2 days, then 40mg x 2 days, then 20mg x 2 days, the 10mg x 2 days, then 5mg every other day x 2 doses 12/08/2017 No Stop Date Active disp qty sufficient doxycycline hyclate 100 mg capsule RxNorm: 2471263 1 Capsule(s) PO BID 12/08/2017 12/17/2017 Inactive albuterol sulfate 2.5 mg/3 mL (0.083 %) solution for nebulization RxNorm: 881684 3 Milliliter(s) INH Q4-6H 12/06/2017 03/06/2019 Inactive prednisone 20 mg tablet RxNorm: 796057 Tablet(s) PO 40mg x 2 days, then 20mg x 2 days, then 10mg x 2 days 12/01/2017 No Stop Date Active Zithromax Z-Maykel 250 mg tablet RxNorm: 380241 1 Tablet(s) PO UD 12/01/2017 04/15/2018 Inactive levocetirizine 5 mg tablet RxNorm: 985871 1 Tablet(s) PO daily 11/13/2017 05/11/2018 Inactive Protonix 20 mg tablet,delayed release RxNorm: 793619 1 Tablet(s) PO BID 11/13/2017 05/11/2018 Inactive Protonix 20 mg tablet,delayed release RxNorm: 452753 1 Tablet(s) PO BID 10/10/2017 11/08/2017 Inactive Tessalon Perles 100 mg capsule RxNorm: 494250 1-2 Capsule(s) PO TID as needed 10/10/2017 10/14/2017 Inactive prednisone 20 mg tablet RxNorm: 198203 Tablet(s) PO 40mg x 2 days, then 20mg x 2 days, then 10mg x 2 days 09/20/2017 11/30/2017 Inactive doxycycline hyclate 100 mg capsule RxNorm: 0559329 1 Capsule(s) PO BID 09/20/2017 09/26/2017 Inactive Zithromax Z-Maykel 250 mg tablet RxNorm: 158890 1 Tablet(s) PO UD 09/12/2017 10/09/2017 Inactive albuterol sulfate 2.5 mg/3 mL (0.083 %) solution for nebulization RxNorm: 214402 3 Milliliter(s) INH Q4-6H 09/12/2017 12/05/2017 Inactive prednisone 20 mg tablet RxNorm: 459922 2 Tablet(s) PO daily 09/12/2017 09/16/2017 Inactive lisinopril 10 mg tablet RxNorm: 301374 1 Tablet(s) PO daily 08/28/2017 02/20/2018 Inactive Zantac 150 mg tablet RxNorm: 349155 1 Tablet(s) PO BID 08/28/2017 08/21/2018 Inactive Cipro 500 mg tablet RxNorm: 242139 1 Tablet(s) PO BID 08/18/2017 08/26/2017 Inactive metronidazole 500 mg tablet RxNorm: 447049 1 Tablet(s) PO TID 08/18/2017 08/26/2017 Inactive prednisone 20 mg tablet RxNorm: 548057 2 Tablet(s) PO BID 06/12/2017 06/16/2017 Inactive Cipro 500 mg tablet RxNorm: 819037 1 Tablet(s) PO BID 05/04/2017 05/13/2017 Inactive metronidazole 500 mg tablet RxNorm: 899752 1 Tablet(s) PO TID 05/04/2017 05/13/2017 Inactive Zantac 150 mg tablet RxNorm: 184391 1 Tablet(s) PO BID 04/27/2017 08/24/2017 Inactive prednisone 20 mg tablet RxNorm: 472919 2 Tablet(s) PO BID start if getting worse 04/21/2017 04/25/2017 Inactive levocetirizine 5 mg tablet RxNorm: 327103 1 Tablet(s) PO daily 04/21/2017 05/20/2017 Inactive prednisone 20 mg tablet RxNorm: 140425 1 Tablet(s) PO BID Start with 1 pill daily and see how effective it is - if still not effective increase to twice a day as discussed 03/03/2017 03/07/2017 Inactive lisinopril 10 mg tablet RxNorm: 572623 1 Tablet(s) PO daily 03/01/2017 08/27/2017 Inactive ciprofloxacin 0.3 % eye drops RxNorm: 574877 2 Drop(s) OPH QID 02/13/2017 02/17/2017 Inactive Zithromax 250 mg tablet RxNorm: 132594 1 Tablet(s) PO daily 02/13/2017 02/15/2017 Inactive Zithromax Z-Maykel 250 mg tablet RxNorm: 575065 1 Tablet(s) PO UD 02/09/2017 02/08/2017 Inactive Zithromax Z-Maykel 250 mg tablet RxNorm: 475095 1 Tablet(s) PO UD 02/09/2017 09/11/2017 Inactive Premarin 0.625 mg/gram vaginal cream RxNorm: 333362 1 Application VAG BIW 12/30/2016 No Stop Date Active Zantac 150 mg tablet RxNorm: 563477 1 Tablet(s) PO BID 12/05/2016 04/03/2017 Inactive prednisone 20 mg tablet RxNorm: 056464 2 Tablet(s) PO daily 12/05/2016 12/09/2016 Inactive Zithromax Z-Maykel 250 mg tablet RxNorm: 060467 Tablet(s) PO UD 12/05/2016 02/08/2017 Inactive lisinopril 10 mg tablet RxNorm: 974777 1 Tablet(s) PO daily 10/31/2016 02/27/2017 Inactive Tessalon Perles 100 mg capsule RxNorm: 772375 2 Capsule(s) PO TID as needed dyspnea 09/23/2016 09/27/2016 Inactive prednisone 20 mg tablet RxNorm: 462752 2 Tablet(s) PO daily 09/23/2016 09/27/2016 Inactive Qvar 80 mcg/actuation Metered Aerosol oral inhaler RxNorm: 856879 1 INH BID started by her senior project controls specialist 08/02/2016 09/12/2016 Inactive Zithromax Z-Maykel 250 mg tablet RxNorm: 055452 Tablet(s) PO UD 07/08/2016 12/04/2016 Inactive Tessalon Perles 100 mg capsule RxNorm: 028569 2 Capsule(s) PO TID as needed dyspnea 07/08/2016 07/12/2016 Inactive prednisone 20 mg tablet RxNorm: 870563 1 Tablet(s) PO UD 07/08/2016 09/22/2016 Inactive Premarin 0.625 mg/gram vaginal cream RxNorm: 247265 1 Application VAG BIW 06/21/2016 12/29/2016 Inactive Dulera 200 mcg-5 mcg/actuation HFA aerosol inhaler RxNorm: 6793744 2 INH Q2H 06/17/2016 No Stop Date Active lisinopril 10 mg tablet RxNorm: 941247 1 Tablet(s) PO daily 06/17/2016 10/14/2016 Inactive olopatadine 0.1 % eye drops RxNorm: 4939700 Drop(s) OPH PRN No Start Date Active ProAir HFA 90 mcg/actuation aerosol inhaler RxNorm: 025788 2 Puff(s) INH PRN No Start Date Active Zyrtec 10 mg capsule RxNorm: 8619630 1 Capsule(s) PO daily No Start Date Active lutein 20 mg capsule RxNorm: 969154 1 Capsule(s) PO daily No Start Date Active [place] Oil 1,000 mg capsule RxNorm: 1 Capsule(s) PO daily No Start Date Active montelukast 10 mg tablet RxNorm: 437772 1 Tablet(s) PO daily No Start Date Active Vitamin D3 1,000 unit capsule RxNorm: 605617 Capsule(s) PO No Start Date Active B12 sublingual RxNorm: 67229 sublingual No Start Date Active pravastatin 20 mg tablet RxNorm: 005851 1 Tablet(s) PO daily No Start Date Active zinc picolinate 50 mg tablet RxNorm: 1 Tablet(s) PO daily No Start Date Active chromium picolinate 200 mcg capsule RxNorm: 397260 1 Capsule(s) PO daily No Start Date Active magnesium RxNorm: 1 PO BID No Start Date Active premarin 0.5% Vaginal cream RxNorm: 1 VAG daily No Start Date Active Xolair 150 mg subcutaneous solution RxNorm: 9892809 1 SQ monthly No Start Date Active folate #7-pc dha-pe [id number]-epotwd-IF-multivitamin #46 oral RxNorm: oral No Start Date Active prednisone RxNorm: 8640 miscellaneous No Start Date Active Dulera 200 mcg-5 mcg/actuation HFA aerosol inhaler RxNorm: 1896587 2 INH Q4H No Start Date 06/16/2016 Inactive lisinopril 10 mg tablet RxNorm: 861149 1 Tablet(s) PO daily No Start Date 06/16/2016 Inactive Medication Administered No Medication Administered data Immunizations Vaccine Codes Date Status Influenza CVX: 141 08/20/2018 completed Assessments Condition Codes Effective Dates Acute bronchitis due to other specified organisms [...] Mixed hyperlipidemia ICD-10: E78.2 ICD-9: 272.2 01/09/2019 Cough ICD-10: R05 ICD-9: 786.2 10/05/2018 Diverticulitis of large intestine without perforation or abscess with bleeding ICD-10: K57.33 ICD-9: 562.13 08/20/2018 Other acute sinusitis ICD-10: J01.80 ICD-9: 461.8 07/24/2018 Zoster without complications ICD-10: B02.9 ICD-9: 053.9 [...] Reason For Visit Effective Dates Notes cough 02/25/2019 sinus congestion 02/08/2019 diarrhea 02/05/2019 [...] Item Code Result Date C A/B FLU [id number] Influenza A Scr TNP:Duplicate Order 07/25/2018 C A/B FLU [id number] Influenza B Scr TNP:Duplicate Order 07/25/2018 C A/B FLU [id number] Influenza Intrp B AG:PRID:PT:NOSE:NOM:IF TNP:Duplicate Order 07/25/2018 C A/B FLU [id number] IC OK? TNP:Duplicate Order 07/25/2018 C RAP A SC [id number] Strep A TNP:Lab Request 02/09/2017 C RAP A SC [id number] IC OK? TNP:Lab Request 02/09/2017 Review of Systems System Result Effective Dates Constitutional recent illness 02/25/2019 Constitutional chills 02/25/2019 [...] Result Effective Dates Notes Full Exam - General 1994 Constitutional general [...] clear 02/25/2019 None Full Exam - General 1995 Ears/Nose/Throat otoscopic exam Tympanic membrane: air-fluid level 02/25/2019 None Full Exam - General 1995 Ears/Nose/Throat lips/teeth/gingiva Overall: benign lips 02/25/2019 None Full Exam - General 1994 Ears/Nose/Throat oral cavity/pharynx/larynx Overall: oral mucosa clear 02/25/2019 None Full Exam - General 1995 Ears/Nose/Throat oral cavity/pharynx/larynx Posterior Pharynx: clear post [...] General 1994 Ears/Nose/Throat lips/teeth/gingiva Overall: benign lips 01/09/2019 None [...] time 07/24/2018 None Full Exam - General 1995 Constitutional general appearance Overall: well developed 05/07/2018 [...] normal 04/21/2017 None Full Exam - General 1995 Ears/Nose/Throat otoscopic exam Overall: external auditory canals [...] No Procedures data Vital Signs Date Vital 02/25/2019 Blood Pressure 1: 142/76 Code: 8480-6 Heart Rate 1: 105 bpm Height: SpO2: 98% Temperature: 37.2 (C) / 99.0 (F) Weight: 02/08/2019 Blood Pressure 1: 122/76 Code: 8480-6 BMI: 28.8 Code: 27022-9 Heart Rate 1: 94 bpm Height: 5'4" SpO2: 98% Weight: 168 lbs 02/05/2019 Blood Pressure 1: 126/70 Code: 8480-6 BMI: 28.5 Code: 83782-8 Heart Rate 1: 90 bpm Height: 5'4" SpO2: 98% Weight: 166 lbs 01/23/2019 Blood Pressure 1: 122/64 Code: 8480-6 BMI: 28.8 Code: 52840-6 Heart Rate 1: 105 bpm Height: 5'4" SpO2: 98% Weight: 168 lbs 01/09/2019 Blood Pressure 1: 134/80 Code: 8480-6 BMI: 28.8 Code: 60645-1 Heart Rate 1: 98 bpm Height: 5'4" SpO2: 100% Weight: 168 lbs 10/05/2018 Blood Pressure 1: 150/84 Code: 8480-6 BMI: 29.9 Code: 69569-2 Heart Rate 1: 78 bpm Height: 5'4" SpO2: 91% Weight: 174 lbs 08/20/2018 Blood Pressure 1: 142/86 Code: 8480-6 BMI: 29.9 Code: 70806-0 Heart Rate 1: 79 bpm Height: 5'4" SpO2: 98% Weight: 174 lbs 07/24/2018 Blood Pressure 1: 150/84 Code: 8480-6 BMI: 29.9 Code: 70284-4 Heart Rate 1: 116 bpm Height: 5'4" SpO2: 96% Temperature: 37.0 (C) / 98.6 (F) Weight: 174 lbs 05/07/2018 Blood Pressure 1: 130/80 Code: 8480-6 BMI: 29.9 Code: 79368-4 Heart Rate 1: 93 bpm Height: 5'4" SpO2: 95% Weight: 174 lbs 04/20/2018 Blood Pressure 1: 134/70 Code: 8480-6 Heart Rate 1: 86 bpm Height: SpO2: 98% Weight: 04/09/2018 Blood Pressure 1: 132/76 Code: 8480-6 BMI: 29.5 Code: 99061-2 Heart Rate 1: 80 bpm Height: 5'4" SpO2: 98% Weight: 172 lbs 12/08/2017 Blood Pressure 1: 148/76 Code: 8480-6 BMI: 29.9 Code: 13342-4 Heart Rate 1: 97 bpm Height: 5'4" SpO2: 97% Weight: 174 lbs 12/01/2017 Blood Pressure 1: 124/74 Code: 8480-6 BMI: 29.9 Code: 53129-7 Heart Rate 1: 110 bpm Height: 5'4" SpO2: 97% Temperature: 37.4 (C) / 99.4 (F) Weight: 174 lbs 10/10/2017 Blood Pressure 1: 128/80 Code: 8480-6 BMI: 29.8 Code: 15433-8 Heart Rate 1: 91 bpm Height: 5'4" SpO2: 98% Temperature: 36.5 (C) / 97.7 (F) Weight: 173 lbs 8 oz 09/20/2017 Blood Pressure 1: 152/88 Code: 8480-6 BMI: 29.9 Code: 56962-4 Heart Rate 1: 87 bpm Height: 5'4" SpO2: 96% Weight: 174 lbs 09/12/2017 Blood Pressure 1: 134/74 Code: 8480-6 BMI: 29.9 Code: 02506-8 Heart Rate 1: 90 bpm Height: 5'4" SpO2: 96% Weight: 174 lbs 08/18/2017 Blood Pressure 1: 128/68 Code: 8480-6 Heart Rate 1: 88 bpm Height: SpO2: 97% Weight: 06/12/2017 Blood Pressure 1: 130/70 Code: 8480-6 BMI: 29.2 Code: 72883-5 Heart Rate 1: 94 bpm Height: 5'4" SpO2: 95% Weight: 170 lbs 05/04/2017 Blood Pressure 1: 138/80 Code: 8480-6 BMI: 29.9 Code: 67074-9 Heart Rate 1: 84 bpm Height: 5'4" SpO2: 97% Weight: 174 lbs 04/21/2017 Blood Pressure 1: 130/72 Code: 8480-6 BMI: 29.9 Code: 31032-7 Heart Rate 1: 90 bpm Height: 5'4" SpO2: 96% Weight: 174 lbs 03/03/2017 Blood Pressure 1: 136/78 Code: 8480-6 BMI: 29.9 Code: 24097-7 Heart Rate 1: 91 bpm Height: 5'4" SpO2: 96% Weight: 174 lbs 02/13/2017 Blood Pressure 1: 116/74 Code: 8480-6 BMI: 29.2 Code: 78846-3 Heart Rate 1: 91 bpm Height: 5'4" SpO2: 94% Weight: 170 lbs 02/09/2017 Blood Pressure 1: 120/72 Code: 8480-6 BMI: 29.0 Code: 89911-9 Heart Rate 1: 100 bpm Height: 5'4" SpO2: 97% Temperature: 37.4 (C) / 99.3 (F) Weight: 169 lbs 12/14/2016 Blood Pressure 1: 130/72 Code: 8480-6 BMI: 29.5 Code: 08818-2 Heart Rate 1: 100 bpm Height: 5'4" SpO2: 95% Weight: 172 lbs 12/05/2016 Blood Pressure 1: 136/78 Code: 8480-6 BMI: 29.2 Code: 65021-8 Heart Rate 1: 117 bpm Height: 5'4" SpO2: 97% Weight: 170 lbs 09/23/2016 Blood Pressure 1: 130/74 Code: 8480-6 BMI: 30.2 Code: 44689-2 Heart Rate 1: 102 bpm Height: 5'4" SpO2: 94% Weight: 176 lbs 09/14/2016 Blood Pressure 1: 128/74 Code: 8480-6 BMI: 29.4 Code: 22000-7 Heart Rate 1: 90 bpm Height: 5'4" SpO2: 97% Weight: 171 lbs 07/08/2016 Blood Pressure 1: 118/64 Code: 8480-6 BMI: 28.8 Code: 80678-3 Heart Rate 1: 115 bpm Height: 5'4" SpO2: 97% Weight: 168 lbs 06/17/2016 Blood Pressure 1: 144/86 Code: 8480-6 BMI: 29.5 Code: 15926-9 Heart Rate 1: 94 bpm Height: 5'4" SpO2: 96% Weight: 172 lbs Functional Status No Functional Status data History of Present Illness Symptom Name Status Result Effective Date Notes Location in the lung 02/25/2019 None Quality [...] data Encounters Encounter Performer Location Codes Date 23636 EST. PATIENT, LEVEL III Diagnosis: Acute bronchitis due to other specified organisms[ICD10: J20.8] Diagnosis: Moderate persistent asthma with (acute) exacerbation[ICD10: J45.41] Leisa Keys MD, [facility] CPT-4: 33113 02/25/2019 44954 EST. PATIENT, LEVEL III Diagnosis: Varicose veins of left lower extremity with pain[ICD10: I83.812] Diagnosis: Other allergic rhinitis[ICD10: J30.89] Diagnosis: Other chronic sinusitis[ICD10: J32.8] Leisa Keys MD, [facility] CPT- 4: 20498 02/08/2019 38942 EST. PATIENT, LEVEL III Diagnosis: Left lower quadrant pain[ICD10: R10.32] Diagnosis: Diarrhea, unspecified[ICD10: R19.7] Leisa Keys MD, [facility] CPT- 4: 60027 02/05/2019 86254 EST. PATIENT, LEVEL III Diagnosis: Tinea unguium[ICD10: B35.1] Diagnosis: Localized edema[ICD10: R60.0] Leisa Keys MD, [facility] CPT-4: 25317 01/23/2019 03073 EST. PATIENT, LEVEL III Diagnosis: Essential (primary) hypertension[ICD10: I10] Diagnosis: Mixed hyperlipidemia[ICD10: E78.2] Leisa Keys MD, [facility] CPT-4: 85622 01/09/2019 ([id number]) 82664 EST. PATIENT, LEVEL III Diagnosis: Cough[ICD10: R05] Diagnosis: Moderate persistent asthma with (acute) exacerbation[ICD10: J45.41] Lisseth Keys MD [facility] CPT-4: 23226 10/05/2018 99822 EST. PATIENT, LEVEL III Diagnosis: Diverticulitis of large intestine without perforation or abscess with bleeding[ICD10: K57.33] Leisa Keys MD, [facility] CPT-4: 19184 08/20/2018 82212 EST. PATIENT, LEVEL IV Diagnosis: Other acute sinusitis[ICD10: J01.80] Diagnosis: Other allergic rhinitis[ICD10: J30.89] Leisa Keys MD, [facility] CPT- 4: 44549 07/24/2018 76845 EST. PATIENT, LEVEL III Diagnosis: Zoster without complications[ICD10: B02.9] Lisseth Keys MD, [facility] CPT-4: 92668 05/07/2018 12073 EST. PATIENT, LEVEL IV Diagnosis: Cough[ICD10: R05] Diagnosis: Fever presenting with conditions classified elsewhere[ICD10: R50.81] Leisa Keys MD, [facility] CPT-4: 84702 04/20/2018 00546 EST. PATIENT, LEVEL III Diagnosis: Other fatigue[ICD10: R53.83] Diagnosis: Vitamin D deficiency, unspecified[ICD10: E55.9] Diagnosis: Paresthesia of skin[ICD10: R20.2] Diagnosis: Mixed hyperlipidemia[ICD10: E78.2] Diagnosis: Cellulitis of left toe[ICD10: L03.032] Diagnosis: Essential (primary) hypertension[ICD10: I10] Leisa Keys MD, [facility] CPT-4: 95879 04/09/2018 79027 EST. PATIENT, LEVEL IV Diagnosis: Acute bronchitis due to other specified organisms[ICD10: J20.8] Diagnosis: Moderate persistent asthma with (acute) exacerbation[ICD10: J45.41] Leisa Keys MD, [facility] CPT-4: 33899 12/08/2017 16306 EST. PATIENT, LEVEL IV Diagnosis: Other acute sinusitis[ICD10: J01.80] Diagnosis: Other allergic rhinitis[ICD10: J30.89] Diagnosis: Moderate persistent asthma with (acute) exacerbation[ICD10: J45.41] Leisa Keys MD [facility] CPT-4: 67597 12/01/2017 50236 EST. PATIENT, LEVEL IV Diagnosis: Moderate persistent asthma with (acute) exacerbation[ICD10: J45.41] Diagnosis: Other allergic rhinitis[ICD10: J30.89] Diagnosis: Gastro-esophageal reflux disease without esophagitis[ICD10: K21.9] Leisa Keys MD, [facility] CPT-4: 59509 10/10/2017 44210 EST. PATIENT, LEVEL III Diagnosis: Moderate persistent asthma with (acute) exacerbation[ICD10: J45.41] Diagnosis: Other allergic rhinitis[ICD10: J30.89] Diagnosis: Mixed hyperlipidemia[ICD10: E78.2] Leisa Keys MD [facility] CPT-4: 51161 09/20/2017 22490 EST. PATIENT, LEVEL IV Diagnosis: Acute laryngopharyngitis[ICD10: J06.0] Diagnosis: Other acute sinusitis[ICD10: J01.80] Diagnosis: Other allergic rhinitis[ICD10: J30.89] Leisa Keys MD, [facility] CPT- 4: 81241 09/12/2017 59141 EST. PATIENT, LEVEL IV Diagnosis: Diverticulitis of large intestine without perforation or abscess with bleeding[ICD10: K57.33] Leisa Keys MD [facility] CPT-4: 65463 08/18/2017 74980 EST. PATIENT, LEVEL IV Diagnosis: Other allergic rhinitis[ICD10: J30.89] Diagnosis: Moderate persistent asthma with (acute) exacerbation[ICD10: J45.41] Leisa Keys MD [facility] CPT-4: 33173 06/12/2017 72008 EST. PATIENT, LEVEL IV Diagnosis: Diverticulitis of large intestine without perforation or abscess with bleeding[ICD10: K57.33] Leisa Keys MD [facility] CPT-4: 48935 05/04/2017 08068 EST. PATIENT, LEVEL IV Diagnosis: Other allergic rhinitis[ICD10: J30.89] Diagnosis: Moderate persistent asthma with (acute) exacerbation[ICD10: J45.41] Leisa Keys MD, [facility] CPT-4: 98926 04/21/2017 79823 EST. PATIENT, LEVEL III Diagnosis: Moderate persistent asthma with (acute) exacerbation[ICD10: J45.41] Leisa Keys MD, [facility] CPT-4: 19740 03/03/2017 55863 EST. PATIENT, LEVEL IV Diagnosis: Moderate persistent asthma, uncomplicated[ICD10: J45.40] Diagnosis: Other mucopurulent conjunctivitis, left eye[ICD10: H10.022] Diagnosis: Acute laryngopharyngitis[ICD10: J06.0] Leisa Keys MD, [facility] CPT- 4: 24884 02/13/2017 36881 EST. PATIENT, LEVEL IV Diagnosis: Acute laryngopharyngitis[ICD10: J06.0] Diagnosis: Other acute sinusitis[ICD10: J01.80] Diagnosis: Other allergic rhinitis[ICD10: J30.89] Leisa Keys MD, [facility] CPT- 4: 20594 02/09/2017 79336 EST. PATIENT, LEVEL III Diagnosis: Other allergic rhinitis[ICD10: J30.89] Diagnosis: Moderate persistent asthma, uncomplicated[ICD10: J45.40] Leisa Keys MD, [facility] CPT-4: 48458 12/14/2016 92823 EST. PATIENT, LEVEL III Diagnosis: Other acute sinusitis[ICD10: J01.80] Diagnosis: Other allergic rhinitis[ICD10: J30.89] Diagnosis: Moderate persistent asthma, uncomplicated[ICD10: J45.40] Diagnosis: Gastro-esophageal reflux disease without esophagitis[ICD10: K21.9] Leisa Keys MD, [facility] CPT-4: 49907 12/05/2016 85782 EST. PATIENT, LEVEL IV Diagnosis: Other allergic rhinitis[ICD10: J30.89] Diagnosis: Moderate persistent asthma, uncomplicated[ICD10: J45.40] Diagnosis: Cough[ICD10: R05] Leisa Keys MD, [facility] CPT-4: 86295 09/23/2016 79323 EST. PATIENT, LEVEL IV Diagnosis: Moderate persistent asthma, uncomplicated[ICD10: J45.40] Diagnosis: Other allergic rhinitis[ICD10: J30.89] [facility] CPT- 4: 99862 09/14/2016 75557 EST. PATIENT, LEVEL IV Diagnosis: Other acute sinusitis[ICD10: J01.80] [facility] CPT- 4: 47254 07/08/2016 (84074) PREV VISIT NEW AGE 40-64 Diagnosis: Encounter for gynecological examination (general) (routine) without abnormal findings[ICD10: Z01.419] Diagnosis: Moderate persistent asthma, uncomplicated[ICD10: J45.40] Diagnosis: Essential (primary) hypertension[ICD10: I10] Diagnosis: Mixed hyperlipidemia[ICD10: E78.2] [facility] CPT-4: 92121 06/17/2016 Plan of Care Planned Activity Notes Codes Status Date Visit Plan: Bronchitis - acute case of [...] acute changes. 02/25/2019 Appointment: Leisa Kirkpatrick WPtel: [address] [place], [place] [phone] (30 min) [facility] 02/25/2019 Patient Education: Patient Medication Summary Completed [...] vein specialist. 02/08/2019 Appointment: Leisa Kirkpatrick WPtel: [address] [place], [place] [id number] (30 min) Complex 02/08/2019 Patient Education: [...] pt's stomach. 02/05/2019 Appointment: Leisa Kirkpatrick WPtel: [facility]7 [facility]66[facility] (30 min) Complex 02/05/2019 Patient Education: Patient [...] or concerns. 01/23/2019 Appointment: Leisa Kirkpatrick WPtel: [facility]3 [id number] (30 min) Complex 01/23/2019 Patient Education: Patient Medication Summary Completed 01/23/2019 Visit Plan: pt is on chronic antihypertensive medication - the medication has been adjusted down to attempt to alleviate the low blood pressures. 01/09/2019 Appointment: Leisa Kirkpatrick WPtel: [facility]3 [id number] (30 min) Complex 01/09/2019 Patient Education: Patient [...] acute changes. 10/05/2018 Appointment: Lisseth Greene WPtel: [facility]4 [id number] [place] (15 min) Moderate 10/05/2018 Patient Education: Patient Medication Summary Completed 10/05/2018 Visit Plan: Diverticulitis - rx for antibiotic sent to pt's pharmacy - pt advised to avoid seeds, nuts, popcorn, or any other food which has been proven to upset the pt's stomach. 08/20/2018 Appointment: Leisa Kirkpatrick WPtel: [facility]3 [id number] (15 min) Moderate 08/20/2018 Patient Education: Patient [...] allergy spray. 07/24/2018 Appointment: Leisa Kirkpatrick WPtel: [facility]9 [facility] [place] (15 min) Moderate 07/24/2018 Patient Education: Patient Medication Summary Completed 07/24/2018 Appointment: Leisa Kirkpatrick WPtel[facility] ([facility] 05/14/2018 Visit Plan: Shingles [...] considered contagious. 05/07/2018 Appointment: [facility]iss[facility] Greene [facility]el[phone] [id number] (15 min) Moderate 05/07/2018 Patient Education: Patient [...] concerns. 04/20/2018 Appointment: [facility]el[facility] [phone] [facility] (15 min) Moderate 04/20/2018 Patient Education: Patient [...] as indicated. 04/09/2018 Appointment: [facility] [phone] [facility] (15 min) Moderate 04/09/2018 Patient Education: Patient Medication Summary Completed 04/09/2018 Patient Education: Patient Medication Summary Completed 04/09/2018 Care Plan: B12 Pending 04/09/2018 Care Plan: Folate Pending 04/09/2018 Care Plan: Vitamin D 25 Oh Pending 04/09/2018 Care Plan: Lipid Pending 04/09/2018 Care Plan: SCREENINGMAMMOGRAPHYDIGITAL LOINC : 47076-9 Pending 04/09/2018 Visit Plan: Bronchitis - acute [...] changes. 12/08/2017 Appointment: [facility]el[facility] [phone] [id number] ([facility]) Complex 12/08/2017 Patient Education: Patient [...] acute changes. 12/01/2017 Appointment: Leisa Kirkpatrick WPtel: [address] [place] [id number] (15 min) Moderate 12/01/2017 Patient Education: Patient [...] not improving. 10/10/2017 Appointment: Leisa Kirkpatrick WPtel: [facility]5 [facility] (15 min) Moderate 10/10/2017 Patient Education: Patient Medication Summary Completed 10/10/2017 Appointment: Leisa Kirkpatrick WPtel: [phone] [facility] (15 min) Moderate 10/06/2017 Visit Plan: Asthma [...] to medications. 09/20/2017 Appointment: Leisa Kirkpatrick WPtel: [facility] (15 min) Moderate 09/20/2017 Patient Education: Patient [...] allergy spray. 09/12/2017 Appointment: [facility]Ptel[facility] [phone] [facility] (15 min) Moderate 09/12/2017 Patient Education: Patient Medication Summary Completed 09/12/2017 Patient Education: Obesity Completed 09/12/2017 Visit Plan: Diverticulitis - rx for antibiotic sent to pt's pharmacy - pt advised to avoid seeds, nuts, popcorn, or any other food which has been proven to upset the pt's stomach. 08/18/2017 Appointment: [facility]patrick [facility]Ptel[facility] [phone] [facility] ([facility] min) Complex 08/18/2017 Patient Education: Patient [...] spray. 06/12/2017 Appointment: Leisa Kirkpatrick WPtel: [phone] [facility] (10 min) Simple 06/12/2017 Patient Education: Patient Medication Summary Completed 06/12/2017 Visit Plan: Diverticulitis - rx for antibiotic sent to pt's pharmacy - pt advised to avoid seeds, nuts, popcorn, or any other food which has been proven to upset the pt's stomach. 05/04/2017 Appointment: Leisa Kirkpatrick WPtel: [phone] [id number] (30 min) Complex 05/04/2017 Patient Education: Patient [...] spray. 04/21/2017 Appointment: Leisa Kirkpatrick WPtel: [phone] [facility] [place] (15 min) Moderate 04/21/2017 Patient Education: Patient [...] changes. 03/03/2017 Appointment: [facility]Ptel[facility] [phone] [facility] ([facility]) Complex 03/03/2017 Patient Education: Patient [...] daily. 02/13/2017 Appointment: [facility]patrick [facility]Ptel[facility] [phone] [facility] [place] (10 min) Simple 02/13/2017 Patient Education: Patient [...] allergy spray. 02/09/2017 Appointment: Leisa Kirkpatrick WPtel: [address] [place] [address] (15 min) Moderate 02/09/2017 Patient Education: Patient [...] allergy spray. 12/14/2016 Appointment: Leisa Kirkpatrick WPtel: [address] [place] [address] (15 min) Moderate 12/14/2016 Patient Education: Patient [...] improving. 12/05/2016 Appointment: [facility]Ptel[facility] [phone] [facility] ([facility] min) Complex 12/05/2016 Patient Education: Patient [...] acute changes. 09/23/2016 Appointment: Lisseth Greene [facility]Ptel[facility] [phone] [id number] (30 min) Complex 09/23/2016 Patient Education: Patient [...] improvement. Allerg ies/asthma - pt sees an senior project controls specialist who recently started her on Qvar and dexilant. They are referring her to pulmonology (Dr. Mcconnell) - pt is to notify clinic with any questions or concerns. 07/08/2016 Appointment: Lisseth Greene WPtel: [phone] (15 min) Moderate 07/08/2016 Patient Education: Patient [...] normal liver response to medications. 06/17/2016 Appointment: Jc Lisseth [facility]Ptel[facility] [phone] [phone] [place] New Patient 06/17/2016 Patient Education: Patient Medication Summary Completed 06/17/2016 Care Plan: PAP Pending 06/17/2016 Instructions Comment . Asthma - chronic problem for this [...] spray in the nasal steroid allergy spray. Start the flagyl you have at home [...] show improvement. Allergies/asthma - pt sees an senior project controls specialist who recently started her on Qvar [...] attempt to alleviate the low blood pressures. prednisone 40mg daily x 3 days, then [...] patient is stable, monitor for acute changes. will send bactrim to start over the weekend if you ankle gets any worse called out the gentamycin rinse to [facility] take aleve 1 pill twice a day x 5 days - if your ankle is no better on Monday then we will order a US will refer to Dr. Bustos in [place] for varicose veins. . Allergies - chronic [...] treatment for varicose veins with vein specialist. . URI - Pt advised to increase [...] if the symptoms are not improving. . Asthma Exacerbation - Asthma is a [...] been proven to upset the pt's stomach. Start prednisone only if symptoms worsen. . [...] in the nasal steroid allergy spray. . URI - Pt advised to increase [...] medication into affected eye four times daily. . Well Adult Female - exam completed. [...] assure normal liver response to medications. . Sinusitis - Pt has acute infection [...] is stable, monitor for acute changes. . Sinusitis - Pt has acute infection [...] check labs and treat as indicated. . Edema - pt has been advised [...] with any changes, questions, or concerns. . Shingles - Herpes Zoster - acute [...] pt is to be considered contagious. . Diverticulitis - rx for antibiotic sent to pt's pharmacy - pt advised to avoid seeds, nuts, popcorn, or any other food which has been proven to upset the pt's stomach. . Bronchitis - acute case of bronchitis [...]
--- OUTSIDE RECORDS SUMMARY | 2019-03-30 10:10 | XMS REPORT | CCD ---
Author Author Leisa Kirkpatrick MD, [facility] Address [address] [place] [address] Phone Care Team Providers Care Homogenizer Operator Name Role Phone PP Unavailable CCM Unavailable Summary Purpose Interface Exchange Insurance Providers Payer name Policy type / Coverage type Covered democrat ID Effective Begin Date Effective End Date [facility] [id number] Unknown Family history Father Diagnosis Age At Onset Heart Attack Unknown genetic disease Unknown Skin cancer Unknown Hypertension Unknown Mother Diagnosis Age At Onset Stroke Unknown Daughter Diagnosis Age At Onset Asthma Unknown Arthritis Unknown Social History Social History Element Codes Description Effective Dates Marital status Unknown Lev 10/10/2017 Number of children Unknown 2 06/17/[address]: 763419542 Never smoker 06/17/2016 Alcohol history Unknown occasionally [...] Start Date Stop Date Status Fill Instructions prednisone 10 mg tablet RxNorm: 051489 Tablet(s) PO 02/25/2019 No Stop Date Active 40,40,40,20,20,20,10,10,10 Tessalon Perles 100 mg capsule RxNorm: 416927 2 Capsule(s) PO TID as needed cough 02/25/2019 03/01/2019 Active Bactrim DS 800 mg-160 mg tablet RxNorm: 656418 1 Tablet(s) PO BID 02/08/2019 02/17/2019 Inactive Flagyl 500 mg tablet RxNorm: 893011 1 Tablet(s) PO TID 02/05/2019 02/14/2019 Inactive clotrimazole 1 % topical cream RxNorm: 950797 1 Application TOP BID 01/23/2019 No Stop Date Active Tamiflu 75 mg capsule RxNorm: 179972 1 Capsule(s) PO daily 01/11/2019 01/20/2019 Inactive Tamiflu 75 mg capsule RxNorm: 123611 1 Capsule(s) PO daily 01/11/2019 01/10/2019 Inactive losartan 25 mg tablet RxNorm: 623648 1 Tablet(s) PO daily 12/24/2018 04/22/2019 Active losartan 25 mg tablet RxNorm: 224991 1 Tablet(s) PO daily 12/24/2018 12/23/2018 Inactive Zithromax Z-Maykel 250 mg tablet RxNorm: 183783 1 Tablet(s) PO UD 10/05/2018 10/09/2018 Inactive prednisone 20 mg tablet RxNorm: 748370 2 Tablet(s) PO daily 10/05/2018 10/09/2018 Inactive Zantac 150 mg tablet RxNorm: 826973 TAKE 1 TABLET BY MOUTH TWICE DAILY 08/22/2018 08/16/2019 Active Generic For:*ZANTAC 150 MG TABLET 08/22/2018 10:42:54 AM lisinopril 10 mg tablet RxNorm: 897585 TAKE 1 TABLET BY MOUTH DAILY 08/22/2018 12/24/2018 Inactive Generic For:ZESTRIL 10 MG TABLET 08/22/2018 10:43:05 AM prednisone 10 mg tablet RxNorm: 337455 Tablet(s) PO 07/24/2018 02/24/2019 Inactive 40,40,30,30,20,20,10,10,5mg every other day x 2 doses Zithromax Z-Maykel 250 mg tablet RxNorm: 742680 1 Tablet(s) PO UD 07/24/2018 10/04/2018 Inactive Protonix 20 mg tablet,delayed release RxNorm: 681980 1 Tablet(s) PO BID 05/23/2018 11/18/2018 Inactive acyclovir 400 mg tablet RxNorm: 885942 2 Tablet(s) PO QID 05/07/2018 05/16/2018 Inactive doxycycline hyclate 100 mg capsule RxNorm: 3039146 1 Capsule(s) PO BID 04/20/2018 04/29/2018 Inactive Bactrim DS 800 mg-160 mg tablet RxNorm: 333419 1 Tablet(s) PO BID 04/16/2018 04/18/2018 Inactive Bactrim DS 800 mg-160 mg tablet RxNorm: 270597 1 Tablet(s) PO BID 04/09/2018 04/15/2018 Inactive lisinopril 10 mg tablet RxNorm: 143030 TAKE 1 TABLET BY MOUTH DAILY 02/21/2018 08/19/2018 Inactive Generic For:ZESTRIL 10 MG TABLET 02/21/2018 11:39:12 AM prednisone 10 mg tablet RxNorm: 956675 Tablet(s) PO 60mg x 2 days, then 40mg x 2 days, then 20mg x 2 days, the 10mg x 2 days, then 5mg every other day x 2 doses 12/08/2017 No Stop Date Active disp qty sufficient doxycycline hyclate 100 mg capsule RxNorm: 4160457 1 Capsule(s) PO BID 12/08/2017 12/17/2017 Inactive albuterol sulfate 2.5 mg/3 mL (0.083 %) solution for nebulization RxNorm: 100103 3 Milliliter(s) INH Q4-6H 12/06/2017 No Stop Date Active prednisone 20 mg tablet RxNorm: 479824 Tablet(s) PO 40mg x 2 days, then 20mg x 2 days, then 10mg x 2 days 12/01/2017 No Stop Date Active Zithromax Z-Maykel 250 mg tablet RxNorm: 355992 1 Tablet(s) PO UD 12/01/2017 04/15/2018 Inactive levocetirizine 5 mg tablet RxNorm: 613239 1 Tablet(s) PO daily 11/13/2017 05/11/2018 Inactive Protonix 20 mg tablet,delayed release RxNorm: 139649 1 Tablet(s) PO BID 11/13/2017 05/11/2018 Inactive Protonix 20 mg tablet,delayed release RxNorm: 217483 1 Tablet(s) PO BID 10/10/2017 11/08/2017 Inactive Tessalon Perles 100 mg capsule RxNorm: 442653 1-2 Capsule(s) PO TID as needed 10/10/2017 10/14/2017 Inactive prednisone 20 mg tablet RxNorm: 642665 Tablet(s) PO 40mg x 2 days, then 20mg x 2 days, then 10mg x 2 days 09/20/2017 11/30/2017 Inactive doxycycline hyclate 100 mg capsule RxNorm: 6466526 1 Capsule(s) PO BID 09/20/2017 09/26/2017 Inactive Zithromax Z-Maykel 250 mg tablet RxNorm: 874828 1 Tablet(s) PO UD 09/12/2017 10/09/2017 Inactive albuterol sulfate 2.5 mg/3 mL (0.083 %) solution for nebulization RxNorm: 969027 3 Milliliter(s) INH Q4-6H 09/12/2017 12/05/2017 Inactive prednisone 20 mg tablet RxNorm: 001109 2 Tablet(s) PO daily 09/12/2017 09/16/2017 Inactive lisinopril 10 mg tablet RxNorm: 682521 1 Tablet(s) PO daily 08/28/2017 02/20/2018 Inactive Zantac 150 mg tablet RxNorm: 079831 1 Tablet(s) PO BID 08/28/2017 08/21/2018 Inactive Cipro 500 mg tablet RxNorm: 258978 1 Tablet(s) PO BID 08/18/2017 08/26/2017 Inactive metronidazole 500 mg tablet RxNorm: 547071 1 Tablet(s) PO TID 08/18/2017 08/26/2017 Inactive prednisone 20 mg tablet RxNorm: 035708 2 Tablet(s) PO BID 06/12/2017 06/16/2017 Inactive Cipro 500 mg tablet RxNorm: 210113 1 Tablet(s) PO BID 05/04/2017 05/13/2017 Inactive metronidazole 500 mg tablet RxNorm: 349116 1 Tablet(s) PO TID 05/04/2017 05/13/2017 Inactive Zantac 150 mg tablet RxNorm: 313317 1 Tablet(s) PO BID 04/27/2017 08/24/2017 Inactive prednisone 20 mg tablet RxNorm: 543025 2 Tablet(s) PO BID start if getting worse 04/21/2017 04/25/2017 Inactive levocetirizine 5 mg tablet RxNorm: 607924 1 Tablet(s) PO daily 04/21/2017 05/20/2017 Inactive prednisone 20 mg tablet RxNorm: 804263 1 Tablet(s) PO BID Start with 1 pill daily and see how effective it is - if still not effective increase to twice a day as discussed 03/03/2017 03/07/2017 Inactive lisinopril 10 mg tablet RxNorm: 850861 1 Tablet(s) PO daily 03/01/2017 08/27/2017 Inactive ciprofloxacin 0.3 % eye drops RxNorm: 862731 2 Drop(s) OPH QID 02/13/2017 02/17/2017 Inactive Zithromax 250 mg tablet RxNorm: 248633 1 Tablet(s) PO daily 02/13/2017 02/15/2017 Inactive Zithromax Z-Maykel 250 mg tablet RxNorm: 445821 1 Tablet(s) PO UD 02/09/2017 02/08/2017 Inactive Zithromax Z-Maykel 250 mg tablet RxNorm: 436239 1 Tablet(s) PO UD 02/09/2017 09/11/2017 Inactive Premarin 0.625 mg/gram vaginal cream RxNorm: 151493 1 Application VAG BIW 12/30/2016 No Stop Date Active Zantac 150 mg tablet RxNorm: 815350 1 Tablet(s) PO BID 12/05/2016 04/03/2017 Inactive prednisone 20 mg tablet RxNorm: 012162 2 Tablet(s) PO daily 12/05/2016 12/09/2016 Inactive Zithromax Z-Maykel 250 mg tablet RxNorm: 461597 Tablet(s) PO UD 12/05/2016 02/08/2017 Inactive lisinopril 10 mg tablet RxNorm: 827285 1 Tablet(s) PO daily 10/31/2016 02/27/2017 Inactive Tessalon Perles 100 mg capsule RxNorm: 544268 2 Capsule(s) PO TID as needed dyspnea 09/23/2016 09/27/2016 Inactive prednisone 20 mg tablet RxNorm: 683509 2 Tablet(s) PO daily 09/23/2016 09/27/2016 Inactive Qvar 80 mcg/actuation Metered Aerosol oral inhaler RxNorm: 879854 1 INH BID started by her underwriting support specialist 08/02/2016 09/12/2016 Inactive Zithromax Z-Maykel 250 mg tablet RxNorm: 871871 Tablet(s) PO UD 07/08/2016 12/04/2016 Inactive Tessalon Perles 100 mg capsule RxNorm: 662863 2 Capsule(s) PO TID as needed dyspnea 07/08/2016 07/12/2016 Inactive prednisone 20 mg tablet RxNorm: 879580 1 Tablet(s) PO UD 07/08/2016 09/22/2016 Inactive Premarin 0.625 mg/gram vaginal cream RxNorm: 000380 1 Application VAG BIW 06/21/2016 12/29/2016 Inactive Dulera 200 mcg-5 mcg/actuation HFA aerosol inhaler RxNorm: 2176086 2 INH Q2H 06/17/2016 No Stop Date Active lisinopril 10 mg tablet RxNorm: 497694 1 Tablet(s) PO daily 06/17/2016 10/14/2016 Inactive olopatadine 0.1 % eye drops RxNorm: 6868220 Drop(s) OPH PRN No Start Date Active ProAir HFA 90 mcg/actuation aerosol inhaler RxNorm: 793492 2 Puff(s) INH PRN No Start Date Active Zyrtec 10 mg capsule RxNorm: 0638198 1 Capsule(s) PO daily No Start Date Active lutein 20 mg capsule RxNorm: 317053 1 Capsule(s) PO daily No Start Date Active [place] Oil 1,000 mg capsule RxNorm: 1 Capsule(s) PO daily No Start Date Active montelukast 10 mg tablet RxNorm: 557462 1 Tablet(s) PO daily No Start Date Active Vitamin D3 1,000 unit capsule RxNorm: 302893 Capsule(s) PO No Start Date Active B12 sublingual RxNorm: 85124 sublingual No Start Date Active pravastatin 20 mg tablet RxNorm: 632123 1 Tablet(s) PO daily No Start Date Active zinc picolinate 50 mg tablet RxNorm: 1 Tablet(s) PO daily No Start Date Active chromium picolinate 200 mcg capsule RxNorm: 179937 1 Capsule(s) PO daily No Start Date Active magnesium RxNorm: 1 PO BID No Start Date Active premarin 0.5% Vaginal cream RxNorm: 1 VAG daily No Start Date Active Xolair 150 mg subcutaneous solution RxNorm: 7863684 1 SQ monthly No Start Date Active folate #7-pc dha-pe evn-BMIP-wiwloz-IF-multivitamin #46 oral RxNorm: oral No Start Date Active prednisone RxNorm: 8640 miscellaneous No Start Date Active Dulera 200 mcg-5 mcg/actuation HFA aerosol inhaler RxNorm: 1054451 2 INH Q4H No Start Date 06/16/2016 Inactive lisinopril 10 mg tablet RxNorm: 970384 1 Tablet(s) PO daily No Start Date [...] Item Code Result Date C A/B FLU [id number] Influenza A Scr TNP:Duplicate Order 07/25/2018 C A/B FLU [id number] Influenza B Scr TNP:Duplicate Order 07/25/2018 C A/B FLU [id number] Influenza Intrp B AG:PRID:PT:NOSE:NOM:IF TNP:Duplicate Order 07/25/2018 C A/B FLU [id number] IC OK? TNP:Duplicate Order 07/25/2018 C RAP A SC [id number] Strep A TNP:Lab Request 02/09/2017 C RAP A SC [id number] IC OK? TNP:Lab Request 02/09/2017 Review of [...] affect 01/23/2019 None Full Exam - General 1995 Cardiovascular extremities Edema present: bilateral 01/23/2019 feet Full Exam - General 1994 Cardiovascular extremities Edema present: severity 1+ - 4+: trace 01/23/2019 None Full Exam - General 1995 Constitutional general appearance Overall: well developed 01/09/2019 None Full Exam - General 1995 Constitutional general appearance Overall: in no acute [...] 1: 122/76 Code: 8480-6 BMI: 28.8 Code: 93659-6 Heart Rate 1: 94 bpm Height: 5'4" SpO2: 98% Weight: 168 lbs 02/05/2019 Blood Pressure 1: 126/70 Code: 8480-6 BMI: 28.5 Code: 82723-7 Heart Rate 1: 90 bpm Height: 5'4" SpO2: 98% Weight: 166 lbs 01/23/2019 Blood Pressure 1: 122/64 Code: 8480-6 BMI: 28.8 Code: 15716-5 Heart Rate 1: 105 bpm Height: 5'4" SpO2: 98% Weight: 168 lbs 01/09/2019 Blood Pressure 1: 134/80 Code: 8480-6 BMI: 28.8 Code: 71844-5 Heart Rate 1: 98 bpm Height: 5'4" SpO2: 100% Weight: 168 lbs 10/05/2018 Blood Pressure 1: 150/84 Code: 8480-6 BMI: 29.9 Code: 30996-3 Heart Rate 1: 78 bpm Height: 5'4" SpO2: 91% Weight: 174 lbs 08/20/2018 Blood Pressure 1: 142/86 Code: 8480-6 BMI: 29.9 Code: 52087-9 Heart Rate 1: 79 bpm Height: 5'4" SpO2: 98% Weight: 174 lbs 07/24/2018 Blood Pressure 1: 150/84 Code: 8480-6 BMI: 29.9 Code: 69768-6 Heart Rate 1: 116 bpm Height: 5'4" SpO2: 96% Temperature: 37.0 (C) / 98.6 (F) Weight: 174 lbs 05/07/2018 Blood Pressure 1: 130/80 Code: 8480-6 BMI: 29.9 Code: 73972-2 Heart Rate 1: 93 bpm Height: 5'4" SpO2: 95% Weight: 174 lbs 04/20/2018 Blood Pressure 1: 134/70 Code: 8480-6 Heart Rate 1: 86 bpm Height: SpO2: 98% Weight: 04/09/2018 Blood Pressure 1: 132/76 Code: 8480-6 BMI: 29.5 Code: 90999-2 Heart Rate 1: 80 bpm Height: 5'4" SpO2: 98% Weight: 172 lbs 12/08/2017 Blood Pressure 1: 148/76 Code: 8480-6 BMI: 29.9 Code: 28104-0 Heart Rate 1: 97 bpm Height: 5'4" SpO2: 97% Weight: 174 lbs 12/01/2017 Blood Pressure 1: 124/74 Code: 8480-6 BMI: 29.9 Code: 21237-2 Heart Rate 1: 110 bpm Height: 5'4" SpO2: 97% Temperature: 37.4 (C) / 99.4 (F) Weight: 174 lbs 10/10/2017 Blood Pressure 1: 128/80 Code: 8480-6 BMI: 29.8 Code: 56683-9 Heart Rate 1: 91 bpm Height: 5'4" SpO2: 98% Temperature: 36.5 (C) / 97.7 (F) Weight: 173 lbs 8 oz 09/20/2017 Blood Pressure 1: 152/88 Code: 8480-6 BMI: 29.9 Code: 22812-9 Heart Rate 1: 87 bpm Height: 5'4" SpO2: 96% Weight: 174 lbs 09/12/2017 Blood Pressure 1: 134/74 Code: 8480-6 BMI: 29.9 Code: 16174-1 Heart Rate 1: 90 bpm Height: 5'4" SpO2: 96% Weight: 174 lbs 08/18/2017 Blood Pressure 1: 128/68 Code: 8480-6 Heart Rate 1: 88 bpm Height: SpO2: 97% Weight: 06/12/2017 Blood Pressure 1: 130/70 Code: 8480-6 BMI: 29.2 Code: 54298-5 Heart Rate 1: 94 bpm Height: 5'4" SpO2: 95% Weight: 170 lbs 05/04/2017 Blood Pressure 1: 138/80 Code: 8480-6 BMI: 29.9 Code: 77380-9 Heart Rate 1: 84 bpm Height: 5'4" SpO2: 97% Weight: 174 lbs 04/21/2017 Blood Pressure 1: 130/72 Code: 8480-6 BMI: 29.9 Code: 37885-3 Heart Rate 1: 90 bpm Height: 5'4" SpO2: 96% Weight: 174 lbs 03/03/2017 Blood Pressure 1: 136/78 Code: 8480-6 BMI: 29.9 Code: 57467-2 Heart Rate 1: 91 bpm Height: 5'4" SpO2: 96% Weight: 174 lbs 02/13/2017 Blood Pressure 1: 116/74 Code: 8480-6 BMI: 29.2 Code: 40526-6 Heart Rate 1: 91 bpm Height: 5'4" SpO2: 94% Weight: 170 lbs 02/09/2017 Blood Pressure 1: 120/72 Code: 8480-6 BMI: 29.0 Code: 08825-9 Heart Rate 1: 100 bpm Height: 5'4" SpO2: 97% Temperature: 37.4 (C) / 99.3 (F) Weight: 169 lbs 12/14/2016 Blood Pressure 1: 130/72 Code: 8480-6 BMI: 29.5 Code: 27338-2 Heart Rate 1: 100 bpm Height: 5'4" SpO2: 95% Weight: 172 lbs 12/05/2016 Blood Pressure 1: 136/78 Code: 8480-6 BMI: 29.2 Code: 52462-2 Heart Rate 1: 117 bpm Height: 5'4" SpO2: 97% Weight: 170 lbs 09/23/2016 Blood Pressure 1: 130/74 Code: 8480-6 BMI: 30.2 Code: 57169-9 Heart Rate 1: 102 bpm Height: 5'4" SpO2: 94% Weight: 176 lbs 09/14/2016 Blood Pressure 1: 128/74 Code: 8480-6 BMI: 29.4 Code: 84466-0 Heart Rate 1: 90 bpm Height: 5'4" SpO2: 97% Weight: 171 lbs 07/08/2016 Blood Pressure 1: 118/64 Code: 8480-6 BMI: 28.8 Code: 57254-1 Heart Rate 1: 115 bpm Height: 5'4" SpO2: 97% Weight: 168 lbs 06/17/2016 Blood Pressure 1: 144/86 Code: 8480-6 BMI: 29.5 Code: 00781-3 Heart Rate 1: 94 bpm Height: 5'4" [...] data Encounters Encounter Performer Location Codes Date EST. PATIENT, LEVEL III Diagnosis: Acute bronchitis due to other specified organisms[ICD10: J20.8] Diagnosis: Moderate persistent asthma with (acute) exacerbation[ICD10: J45.41] Leisa Keys MD, [facility] CPT-4: 45778 02/25/2019 37586 EST. PATIENT, LEVEL III Diagnosis: Varicose veins of left lower extremity with pain[ICD10: I83.812] Diagnosis: Other allergic rhinitis[ICD10: J30.89] Diagnosis: Other chronic sinusitis[ICD10: J32.8] Leisa Keys MD, [facility] CPT- 4: 83366 02/08/2019 93504 EST. PATIENT, LEVEL III Diagnosis: Left lower quadrant pain[ICD10: R10.32] Diagnosis: Diarrhea, unspecified[ICD10: R19.7] [facility] CPT- [facility]: 00791 02/05/2019 36512 EST. PATIENT, LEVEL III Diagnosis: Tinea unguium[ICD10: B35.1] Diagnosis: Localized edema[ICD10: R60.0] [facility] CPT-4: 69451 01/23/2019 98684 EST. PATIENT, LEVEL III Diagnosis: Essential (primary) hypertension[ICD10: I10] Diagnosis: Mixed hyperlipidemia[ICD10: E78.2] [facility] CPT-4: 30080 01/09/2019 (58509) 62192 EST. PATIENT, LEVEL III Diagnosis: Cough[ICD10: R05] Diagnosis: Moderate persistent asthma with (acute) exacerbation[ICD10: J45.41] Lisseth Keys MD, [facility] CPT-4: 60477 10/05/2018 81024 EST. PATIENT, LEVEL III Diagnosis: Diverticulitis of large intestine without perforation or abscess with bleeding[ICD10: K57.33] Leisa Keys MD, [facility] CPT-4: 93935 08/20/2018 60959 EST. PATIENT, LEVEL IV Diagnosis: Other acute sinusitis[ICD10: J01.80] Diagnosis: Other allergic rhinitis[ICD10: J30.89] Leisa Keys MD, [facility] CPT- 4: 86554 07/24/2018 30079 EST. PATIENT, LEVEL III Diagnosis: Zoster without complications[ICD10: B02.9] Lisseth Keys MD, [facility] CPT-4: 03482 05/07/2018 74410 EST. PATIENT, LEVEL IV Diagnosis: Cough[ICD10: R05] Diagnosis: Fever presenting with conditions classified elsewhere[ICD10: R50.81] Leisa Keys MD, [facility] CPT-4: 69739 04/20/2018 32968 EST. PATIENT, LEVEL III Diagnosis: Other fatigue[ICD10: R53.83] Diagnosis: Vitamin D deficiency, unspecified[ICD10: E55.9] Diagnosis: Paresthesia of skin[ICD10: R20.2] Diagnosis: Mixed hyperlipidemia[ICD10: E78.2] Diagnosis: Cellulitis of left toe[ICD10: L03.032] Diagnosis: Essential (primary) hypertension[ICD10: I10] Leisa Keys MD, [facility] CPT-4: 45814 04/09/2018 66534 EST. PATIENT, LEVEL IV Diagnosis: Acute bronchitis due to other specified organisms[ICD10: J20.8] Diagnosis: Moderate persistent asthma with (acute) exacerbation[ICD10: J45.41] Leisa Keys MD, [facility] CPT-4: 09524 12/08/2017 74984 EST. PATIENT, LEVEL IV Diagnosis: Other acute sinusitis[ICD10: J01.80] Diagnosis: Other allergic rhinitis[ICD10: J30.89] Diagnosis: Moderate persistent asthma with (acute) exacerbation[ICD10: J45.41] Leisa Keys MD, [facility] CPT-4: 29913 12/01/2017 83019 EST. PATIENT, LEVEL IV Diagnosis: Moderate persistent asthma with (acute) exacerbation[ICD10: J45.41] Diagnosis: Other allergic rhinitis[ICD10: J30.89] Diagnosis: Gastro-esophageal reflux disease without esophagitis[ICD10: K21.9] Leisa Keys MD [facility] CPT-4: 98653 10/10/2017 93701 EST. PATIENT, LEVEL III Diagnosis: Moderate persistent asthma with (acute) exacerbation[ICD10: J45.41] Diagnosis: Other allergic rhinitis[ICD10: J30.89] Diagnosis: Mixed hyperlipidemia[ICD10: E78.2] Leisa Keys MD [facility] CPT-4: 56572 09/20/2017 62994 EST. PATIENT, LEVEL IV Diagnosis: Acute laryngopharyngitis[ICD10: J06.0] Diagnosis: Other acute sinusitis[ICD10: J01.80] Diagnosis: Other allergic rhinitis[ICD10: J30.89] Leisa Keys MD [facility] CPT- 4: 51730 09/12/2017 96774 EST. PATIENT, LEVEL IV Diagnosis: Diverticulitis of large intestine without perforation or abscess with bleeding[ICD10: K57.33] Leisa Keys MD [facility] CPT-4: 95265 08/18/2017 66457 EST. PATIENT, LEVEL IV Diagnosis: Other allergic rhinitis[ICD10: J30.89] Diagnosis: Moderate persistent asthma with (acute) exacerbation[ICD10: J45.41] Leisa Keys MD [facility] CPT-4: 57906 06/12/2017 06565 EST. PATIENT, LEVEL IV Diagnosis: Diverticulitis of large intestine without perforation or abscess with bleeding[ICD10: K57.33] Leisa Keys MD [facility] CPT-4: 74437 05/04/2017 70773 EST. PATIENT, LEVEL IV Diagnosis: Other allergic rhinitis[ICD10: J30.89] Diagnosis: Moderate persistent asthma with (acute) exacerbation[ICD10: J45.41] Leisa Keys MD [facility] CPT-4: 52665 04/21/2017 84273 EST. PATIENT, LEVEL III Diagnosis: Moderate persistent asthma with (acute) exacerbation[ICD10: J45.41] Leisa Keys MD, [facility] CPT-4: 15760 03/03/2017 20343 EST. PATIENT, LEVEL IV Diagnosis: Moderate persistent asthma, uncomplicated[ICD10: J45.40] Diagnosis: Other mucopurulent conjunctivitis, left eye[ICD10: H10.022] Diagnosis: Acute laryngopharyngitis[ICD10: J06.0] Leisa Keys MD, [facility] CPT- 4: 91982 02/13/2017 20441 EST. PATIENT, LEVEL IV Diagnosis: Acute laryngopharyngitis[ICD10: J06.0] Diagnosis: Other acute sinusitis[ICD10: J01.80] Diagnosis: Other allergic rhinitis[ICD10: J30.89] Leisa Keys MD, [facility] CPT- 4: 65054 02/09/2017 06547 EST. PATIENT, LEVEL III Diagnosis: Other allergic rhinitis[ICD10: J30.89] Diagnosis: Moderate persistent asthma, uncomplicated[ICD10: J45.40] Leisa Keys MD, [facility] CPT-4: 05185 12/14/2016 32461 EST. PATIENT, LEVEL III Diagnosis: Other acute sinusitis[ICD10: J01.80] Diagnosis: Other allergic rhinitis[ICD10: J30.89] Diagnosis: Moderate persistent asthma, uncomplicated[ICD10: J45.40] Diagnosis: Gastro-esophageal reflux disease without esophagitis[ICD10: K21.9] Leisa Keys MD, [facility] CPT-4: 72973 12/05/2016 05372 EST. PATIENT, LEVEL IV Diagnosis: Other allergic rhinitis[ICD10: J30.89] Diagnosis: Moderate persistent asthma, uncomplicated[ICD10: J45.40] Diagnosis: Cough[ICD10: R05] Leisa Keys MD, [facility] CPT-4: 25078 09/23/2016 47684 EST. PATIENT, LEVEL IV Diagnosis: Moderate persistent asthma, uncomplicated[ICD10: J45.40] Diagnosis: Other allergic rhinitis[ICD10: J30.89] Leisa Keys MD [facility] CPT- 4: 17599 09/14/2016 12070 EST. PATIENT, LEVEL IV Diagnosis: Other acute sinusitis[ICD10: J01.80] [facility] CPT- 4: 37148 07/08/2016 (75339) PREV VISIT NEW AGE 40-64 Diagnosis: Encounter for gynecological examination (general) (routine) without abnormal findings[ICD10: Z01.419] Diagnosis: Moderate persistent asthma, uncomplicated[ICD10: J45.40] Diagnosis: Essential (primary) hypertension[ICD10: I10] Diagnosis: Mixed hyperlipidemia[ICD10: E78.2] [facility] CPT-4: 59266 06/17/2016 Plan of Care Planned Activity Notes [...] acute changes. 02/25/2019 Appointment: Leisa Kirkpatrick WPtel: [address] [place] [address] (30 min) Complex 02/25/2019 Patient Education: Patient [...] varicose veins with vein specialist. 02/08/2019 Appointment: Leias Kirkpatrick WPtel: [facility]4 [facility] (30 min) Complex 02/08/2019 Patient Education: Patient [...] upset the pt's stomach. 02/05/2019 Appointment: Leisa Kirkpatrcik WPtel: [phone] (30 min) Complex 02/05/2019 Patient Education: Patient [...] or concerns. 01/23/2019 Appointment: Leisa Kirkpatrick WPtel: [facility]0 [facility] (30 min) Complex 01/23/2019 Patient Education: Patient Medication Summary Completed 01/23/2019 Visit Plan: pt is on chronic antihypertensive medication - the medication has been adjusted down to attempt to alleviate the low blood pressures. 01/09/2019 Appointment: Leisa Kirkpatrick WPtel: [facility]0 [facility] (30 min) Complex 01/09/2019 Patient Education: Patient [...] changes. 10/05/2018 Appointment: Lisseth Greene WPtel: [phone] [phone] [place] (15 min) Moderate 10/05/2018 Patient Education: Patient Medication Summary Completed 10/05/2018 Visit Plan: Diverticulitis - rx for antibiotic sent to pt's pharmacy - pt advised to avoid seeds, nuts, popcorn, or any other food which has been proven to upset the pt's stomach. 08/20/2018 Appointment: Leisa Kirkpatrick WPtel: [phone] [facility] (15 min) Moderate 08/20/2018 Patient Education: Patient [...] allergy spray. 07/24/2018 Appointment: Leisa Kirkpatrick WPtel: [facility]0 [facility] [place] (15 min) Moderate 07/24/2018 Patient Education: Patient Medication Summary Completed 07/24/2018 Appointment: Leisa Kirkpatrick WPtel: [facility] [place] (30 min) Complex 05/14/2018 Visit Plan: Shingles [...] considered contagious. 05/07/2018 Appointment: Lisseth Greene WPtel: [phone] [phone] [place] (15 min) Moderate 05/07/2018 Patient [...] or concerns. 04/20/2018 [facility]ment[phone] [place] ([facility] min) Moderate 04/20/2018 Patient Education: Patient [...] indicated. 04/09/2018 Appointment: [phone] (15 min) Moderate 04/09/2018 Patient Education: Patient Medication Summary Completed 04/09/2018 Patient Education: Patient Medication Summary Completed 04/09/2018 Care Plan: B12 Pending 04/09/2018 Care Plan: Folate Pending 04/09/2018 Care Plan: Vitamin D 25 Oh Pending 04/09/2018 Care Plan: Lipid Pending 04/09/2018 Care Plan: SCREENINGMAMMOGRAPHYDIGITAL LOINC : 92321-9 Pending 04/09/2018 Visit Plan: Bronchitis - acute [...] changes. 12/08/2017 Appointment: [phone] ([facility]) Complex 12/08/2017 Patient Education: [...] acute changes. 12/01/2017 Appointment: [phone] (15 min) Moderate 12/01/2017 Patient Education: Patient [...] not improving. 10/10/2017 Appointment: [phone] (15 min) Moderate 10/10/2017 Patient Education: Patient Medication Summary Completed 10/10/2017 Appointment[id number] ([facility]) Moderate 10/06/2017 Visit Plan: Asthma [...] to medications. 09/20/2017 Appointment: [phone] ([facility] min) Moderate 09/20/2017 Patient Education: [...] nasal steroid allergy spray. 09/12/2017 Appointment: Leisa Kirkpatrickl: [phone] [facility] (15 min) Moderate 09/12/2017 Patient Education: Patient Medication Summary Completed 09/12/2017 Patient Education: Obesity Completed 09/12/2017 Visit Plan: Diverticulitis - rx for antibiotic sent to pt's pharmacy - pt advised to avoid seeds, nuts, popcorn, or any other food which has been proven to upset the pt's stomach. 08/18/2017 Appointment: Leisa Kirkpatrick: [facility] (30 min) Complex 08/18/2017 Patient Education: [...] nasal steroid allergy spray. 06/12/2017 Appointment: Leisa Kirkpatricktel: [phone] [id number] (10 min) Simple 06/12/2017 Patient Education: Patient Medication Summary Completed 06/12/2017 Visit Plan: Diverticulitis - rx for antibiotic sent to pt's pharmacy - pt advised to avoid seeds, nuts, popcorn, or any other food which has been proven to upset the pt's stomach. 05/04/2017 Appointment: Leisa Kirkpatricktel: [phone] [id number] (30 min) Complex 05/04/2017 Patient Education: Patient [...] nasal steroid allergy spray. 04/21/2017 Appointment: [facility]patricktel[id number] (15 min) Moderate 04/21/2017 Patient Education: Patient [...] changes. 03/03/2017 Appointment: Leisa Kirkpatrick WPtel: [phone] [id number] (30 min) Complex 03/03/2017 Patient Education: Patient [...] daily. 02/13/2017 Appointment: [id number] (10 min) Simple 02/13/2017 Patient Education: Patient [...] spray. 02/09/2017 Appointment: Leisa Kirkpatrick WPtel: [phone] [facility] (15 min) Moderate 02/09/2017 Patient Education: Patient [...] spray. 12/14/2016 Appointment: Leisa Kirkpatrick WPtel: [phone] [phone] (15 min) Moderate 12/14/2016 Patient Education: Patient [...] improving. 12/05/2016 Appointment: [id number] ([facility] min) Complex 12/05/2016 Patient Education: [...] changes. 09/23/2016 Appointment: [facility]iss[facility] Greene [facility]el[id number] [place] (30 min) Complex 09/23/2016 Patient Education: Patient [...] improvement. Allerg ies/asthma - pt sees an underwriting support specialist who recently started her on Qvar and dexilant. They are referring her to pulmonology (Dr. Mcconnell) - pt is to notify clinic with any questions or concerns. 07/08/2016 Appointment: Lisseth Greene WPtel: [phone] (15 min) Moderate 07/08/2016 Patient Education: Patient [...] to medications. 06/17/2016 Appointment: Lisseth Greene WPtel[phone] [facility] Patient 06/17/2016 Patient Education: Patient Medication [...] show improvement. Allergies/asthma - pt sees an underwriting support specialist who recently started her on Qvar [...] worse called out the gentamycin rinse to [facility] take aleve 1 pill twice a day x 5 days - if your ankle is no better on Monday then we will order a US will refer to Dr. Bustos in [place] for varicose veins. . Allergies - chronic [...]
--- OUTSIDE RECORDS SUMMARY | 2019-03-30 10:12 | XMS REPORT | CCD ---
Author Author Leisa Kirkpatrick MD, [facility] Address [address] [place] [address] Phone Care Team Providers Care [place] Intern Name Role Phone PP Unavailable CCM Unavailable Summary Purpose Interface Exchange Insurance Providers Payer name Policy type / Coverage type Covered green party ID Effective Begin Date Effective End Date [facility] [id number] Unknown Family history Father Diagnosis Age At Onset Heart Attack Unknown genetic disease Unknown Skin cancer Unknown Hypertension Unknown Mother Diagnosis Age At Onset Stroke Unknown Daughter Diagnosis Age At Onset Asthma Unknown Arthritis Unknown Social History Social History Element Codes Description Effective Dates Marital status Unknown Lev 10/10/2017 Number of children Unknown 2 06/17/[address]: 313083243 Never smoker 06/17/2016 Alcohol history Unknown occasionally [...] Fill Instructions prednisone 10 mg tablet RxNorm: 632337 Tablet(s) PO 02/25/2019 No Stop Date Active 40,40,40,20,20,20,10,10,10 Tessalon Perles 100 mg capsule RxNorm: 532045 2 Capsule(s) PO TID as needed cough 02/25/2019 03/01/2019 Active Bactrim DS 800 mg-160 mg tablet RxNorm: 838104 1 Tablet(s) PO BID 02/08/2019 02/17/2019 Inactive Flagyl 500 mg tablet RxNorm: 710517 1 Tablet(s) PO TID 02/05/2019 02/14/2019 Inactive clotrimazole 1 % topical cream RxNorm: 618356 1 Application TOP BID 01/23/2019 No Stop Date Active Tamiflu 75 mg capsule RxNorm: 544319 1 Capsule(s) PO daily 01/11/2019 01/20/2019 Inactive Tamiflu 75 mg capsule RxNorm: 611319 1 Capsule(s) PO daily 01/11/2019 01/10/2019 Inactive losartan 25 mg tablet RxNorm: 568394 1 Tablet(s) PO daily 12/24/2018 04/22/2019 Active losartan 25 mg tablet RxNorm: 369961 1 Tablet(s) PO daily 12/24/2018 12/23/2018 Inactive Zithromax Z-Maykel 250 mg tablet RxNorm: 482954 1 Tablet(s) PO UD 10/05/2018 10/09/2018 Inactive prednisone 20 mg tablet RxNorm: 025844 2 Tablet(s) PO daily 10/05/2018 10/09/2018 Inactive Zantac 150 mg tablet RxNorm: 806555 TAKE 1 TABLET BY MOUTH TWICE DAILY 08/22/2018 08/16/2019 Active Generic For:*ZANTAC 150 MG TABLET 08/22/2018 10:42:54 AM lisinopril 10 mg tablet RxNorm: 832339 TAKE 1 TABLET BY MOUTH DAILY 08/22/2018 12/24/2018 Inactive Generic For:ZESTRIL 10 MG TABLET 08/22/2018 10:43:05 AM prednisone 10 mg tablet RxNorm: 235578 Tablet(s) PO 07/24/2018 02/24/2019 Inactive 40,40,30,30,20,20,10,10,5mg every other day x 2 doses Zithromax Z-Maykel 250 mg tablet RxNorm: 246891 1 Tablet(s) PO UD 07/24/2018 10/04/2018 Inactive Protonix 20 mg tablet,delayed release RxNorm: 756741 1 Tablet(s) PO BID 05/23/2018 11/18/2018 Inactive acyclovir 400 mg tablet RxNorm: 475179 2 Tablet(s) PO QID 05/07/2018 05/16/2018 Inactive doxycycline hyclate 100 mg capsule RxNorm: 5341216 1 Capsule(s) PO BID 04/20/2018 04/29/2018 Inactive Bactrim DS 800 mg-160 mg tablet RxNorm: 650738 1 Tablet(s) PO BID 04/16/2018 04/18/2018 Inactive Bactrim DS 800 mg-160 mg tablet RxNorm: 822324 1 Tablet(s) PO BID 04/09/2018 04/15/2018 Inactive lisinopril 10 mg tablet RxNorm: 347929 TAKE 1 TABLET BY MOUTH DAILY 02/21/2018 08/19/2018 Inactive Generic For:ZESTRIL 10 MG TABLET 02/21/2018 11:39:12 AM prednisone 10 mg tablet RxNorm: 252779 Tablet(s) PO 60mg x 2 days, then 40mg x 2 days, then 20mg x 2 days, the 10mg x 2 days, then 5mg every other day x 2 doses 12/08/2017 No Stop Date Active disp qty sufficient doxycycline hyclate 100 mg capsule RxNorm: 8547774 1 Capsule(s) PO BID 12/08/2017 12/17/2017 Inactive albuterol sulfate 2.5 mg/3 mL (0.083 %) solution for nebulization RxNorm: 895132 3 Milliliter(s) INH Q4-6H 12/06/2017 No Stop Date Active prednisone 20 mg tablet RxNorm: 950976 Tablet(s) PO 40mg x 2 days, then 20mg x 2 days, then 10mg x 2 days 12/01/2017 No Stop Date Active Zithromax Z-Maykel 250 mg tablet RxNorm: 950130 1 Tablet(s) PO UD 12/01/2017 04/15/2018 Inactive levocetirizine 5 mg tablet RxNorm: 513249 1 Tablet(s) PO daily 11/13/2017 05/11/2018 Inactive Protonix 20 mg tablet,delayed release RxNorm: 012026 1 Tablet(s) PO BID 11/13/2017 05/11/2018 Inactive Protonix 20 mg tablet,delayed release RxNorm: 288836 1 Tablet(s) PO BID 10/10/2017 11/08/2017 Inactive Tessalon Perles 100 mg capsule RxNorm: 636199 1-2 Capsule(s) PO TID as needed 10/10/2017 10/14/2017 Inactive prednisone 20 mg tablet RxNorm: 651542 Tablet(s) PO 40mg x 2 days, then 20mg x 2 days, then 10mg x 2 days 09/20/2017 11/30/2017 Inactive doxycycline hyclate 100 mg capsule RxNorm: 7438971 1 Capsule(s) PO BID 09/20/2017 09/26/2017 Inactive Zithromax Z-Maykel 250 mg tablet RxNorm: 949290 1 Tablet(s) PO UD 09/12/2017 10/09/2017 Inactive albuterol sulfate 2.5 mg/3 mL (0.083 %) solution for nebulization RxNorm: 272289 3 Milliliter(s) INH Q4-6H 09/12/2017 12/05/2017 Inactive prednisone 20 mg tablet RxNorm: 882073 2 Tablet(s) PO daily 09/12/2017 09/16/2017 Inactive lisinopril 10 mg tablet RxNorm: 790209 1 Tablet(s) PO daily 08/28/2017 02/20/2018 Inactive Zantac 150 mg tablet RxNorm: 255771 1 Tablet(s) PO BID 08/28/2017 08/21/2018 Inactive Cipro 500 mg tablet RxNorm: 611806 1 Tablet(s) PO BID 08/18/2017 08/26/2017 Inactive metronidazole 500 mg tablet RxNorm: 627508 1 Tablet(s) PO TID 08/18/2017 08/26/2017 Inactive prednisone 20 mg tablet RxNorm: 070762 2 Tablet(s) PO BID 06/12/2017 06/16/2017 Inactive Cipro 500 mg tablet RxNorm: 573497 1 Tablet(s) PO BID 05/04/2017 05/13/2017 Inactive metronidazole 500 mg tablet RxNorm: 035649 1 Tablet(s) PO TID 05/04/2017 05/13/2017 Inactive Zantac 150 mg tablet RxNorm: 635337 1 Tablet(s) PO BID 04/27/2017 08/24/2017 Inactive prednisone 20 mg tablet RxNorm: 039075 2 Tablet(s) PO BID start if getting worse 04/21/2017 04/25/2017 Inactive levocetirizine 5 mg tablet RxNorm: 348968 1 Tablet(s) PO daily 04/21/2017 05/20/2017 Inactive prednisone 20 mg tablet RxNorm: 644736 1 Tablet(s) PO BID Start with 1 pill daily and see how effective it is - if still not effective increase to twice a day as discussed 03/03/2017 03/07/2017 Inactive lisinopril 10 mg tablet RxNorm: 284810 1 Tablet(s) PO daily 03/01/2017 08/27/2017 Inactive ciprofloxacin 0.3 % eye drops RxNorm: 226231 2 Drop(s) OPH QID 02/13/2017 02/17/2017 Inactive Zithromax 250 mg tablet RxNorm: 792885 1 Tablet(s) PO daily 02/13/2017 02/15/2017 Inactive Zithromax Z-Maykel 250 mg tablet RxNorm: 541380 1 Tablet(s) PO UD 02/09/2017 02/08/2017 Inactive Zithromax Z-Maykel 250 mg tablet RxNorm: 432605 1 Tablet(s) PO UD 02/09/2017 09/11/2017 Inactive Premarin 0.625 mg/gram vaginal cream RxNorm: 417108 1 Application VAG BIW 12/30/2016 No Stop Date Active Zantac 150 mg tablet RxNorm: 383407 1 Tablet(s) PO BID 12/05/2016 04/03/2017 Inactive prednisone 20 mg tablet RxNorm: 624225 2 Tablet(s) PO daily 12/05/2016 12/09/2016 Inactive Zithromax Z-Maykel 250 mg tablet RxNorm: 601506 Tablet(s) PO UD 12/05/2016 02/08/2017 Inactive lisinopril 10 mg tablet RxNorm: 025884 1 Tablet(s) PO daily 10/31/2016 02/27/2017 Inactive Tessalon Perles 100 mg capsule RxNorm: 511553 2 Capsule(s) PO TID as needed dyspnea 09/23/2016 09/27/2016 Inactive prednisone 20 mg tablet RxNorm: 130942 2 Tablet(s) PO daily 09/23/2016 09/27/2016 Inactive Qvar 80 mcg/actuation Metered Aerosol oral inhaler RxNorm: 953448 1 INH BID started by her adaptive physical education specialist 08/02/2016 09/12/2016 Inactive Zithromax Z-Maykel 250 mg tablet RxNorm: 334106 Tablet(s) PO UD 07/08/2016 12/04/2016 Inactive Tessalon Perles 100 mg capsule RxNorm: 483990 2 Capsule(s) PO TID as needed dyspnea 07/08/2016 07/12/2016 Inactive prednisone 20 mg tablet RxNorm: 918682 1 Tablet(s) PO UD 07/08/2016 09/22/2016 Inactive Premarin 0.625 mg/gram vaginal cream RxNorm: 332361 1 Application VAG BIW 06/21/2016 12/29/2016 Inactive Dulera 200 mcg-5 mcg/actuation HFA aerosol inhaler RxNorm: 9795062 2 INH Q2H 06/17/2016 No Stop Date Active lisinopril 10 mg tablet RxNorm: 913353 1 Tablet(s) PO daily 06/17/2016 10/14/2016 Inactive olopatadine 0.1 % eye drops RxNorm: 6125055 Drop(s) OPH PRN No Start Date Active ProAir HFA 90 mcg/actuation aerosol inhaler RxNorm: 044341 2 Puff(s) INH PRN No Start Date Active Zyrtec 10 mg capsule RxNorm: 0081405 1 Capsule(s) PO daily No Start Date Active lutein 20 mg capsule RxNorm: 950695 1 Capsule(s) PO daily No Start Date Active Madison Oil 1,000 mg capsule RxNorm: 1 Capsule(s) PO daily No Start Date Active montelukast 10 mg tablet RxNorm: 027401 1 Tablet(s) PO daily No Start Date Active Vitamin D3 1,000 unit capsule RxNorm: 451885 Capsule(s) PO No Start Date Active B12 sublingual RxNorm: 81161 sublingual No Start Date Active pravastatin 20 mg tablet RxNorm: 103953 1 Tablet(s) PO daily No Start Date Active zinc picolinate 50 mg tablet RxNorm: 1 Tablet(s) PO daily No Start Date Active chromium picolinate 200 mcg capsule RxNorm: 327978 1 Capsule(s) PO daily No Start Date Active magnesium RxNorm: 1 PO BID No Start Date Active premarin 0.5% Vaginal cream RxNorm: 1 VAG daily No Start Date Active Xolair 150 mg subcutaneous solution RxNorm: 2691530 1 SQ monthly No Start Date Active folate #7-pc dha-pe phl-YEJQ-hxdeyr-IF-multivitamin #46 oral RxNorm: oral No Start Date Active prednisone RxNorm: 8640 miscellaneous No Start Date Active Dulera 200 mcg-5 mcg/actuation HFA aerosol inhaler RxNorm: 6899970 2 INH Q4H No Start Date 06/16/2016 Inactive lisinopril 10 mg tablet RxNorm: 829263 1 Tablet(s) PO daily No Start Date [...] Item Code Result Date C A/B FLU [id number] Influenza A Scr TNP:Duplicate Order 07/25/2018 C A/B FLU [id number] Influenza B Scr TNP:Duplicate Order 07/25/2018 C A/B FLU [id number] Influenza Intrp B AG:PRID:PT:NOSE:NOM:IF TNP:Duplicate Order 07/25/2018 C A/B FLU [id number] IC OK? TNP:Duplicate Order 07/25/2018 C RAP A SC [id number] Strep A TNP:Lab Request 02/09/2017 C RAP A SC [id number] IC OK? TNP:Lab Request 02/09/2017 Review of [...] 1: 122/76 Code: 8480-6 BMI: 28.8 Code: 88219-7 Heart Rate 1: 94 bpm Height: 5'4" SpO2: 98% Weight: 168 lbs 02/05/2019 Blood Pressure 1: 126/70 Code: 8480-6 BMI: 28.5 Code: 17602-7 Heart Rate 1: 90 bpm Height: 5'4" SpO2: 98% Weight: 166 lbs 01/23/2019 Blood Pressure 1: 122/64 Code: 8480-6 BMI: 28.8 Code: 51177-3 Heart Rate 1: 105 bpm Height: 5'4" SpO2: 98% Weight: 168 lbs 01/09/2019 Blood Pressure 1: 134/80 Code: 8480-6 BMI: 28.8 Code: 34535-8 Heart Rate 1: 98 bpm Height: 5'4" SpO2: 100% Weight: 168 lbs 10/05/2018 Blood Pressure 1: 150/84 Code: 8480-6 BMI: 29.9 Code: 84796-8 Heart Rate 1: 78 bpm Height: 5'4" SpO2: 91% Weight: 174 lbs 08/20/2018 Blood Pressure 1: 142/86 Code: 8480-6 BMI: 29.9 Code: 00569-9 Heart Rate 1: 79 bpm Height: 5'4" SpO2: 98% Weight: 174 lbs 07/24/2018 Blood Pressure 1: 150/84 Code: 8480-6 BMI: 29.9 Code: 82273-0 Heart Rate 1: 116 bpm Height: 5'4" SpO2: 96% Temperature: 37.0 (C) / 98.6 (F) Weight: 174 lbs 05/07/2018 Blood Pressure 1: 130/80 Code: 8480-6 BMI: 29.9 Code: 51852-4 Heart Rate 1: 93 bpm Height: 5'4" SpO2: 95% Weight: 174 lbs 04/20/2018 Blood Pressure 1: 134/70 Code: 8480-6 Heart Rate 1: 86 bpm Height: SpO2: 98% Weight: 04/09/2018 Blood Pressure 1: 132/76 Code: 8480-6 BMI: 29.5 Code: 77063-5 Heart Rate 1: 80 bpm Height: 5'4" SpO2: 98% Weight: 172 lbs 12/08/2017 Blood Pressure 1: 148/76 Code: 8480-6 BMI: 29.9 Code: 13974-7 Heart Rate 1: 97 bpm Height: 5'4" SpO2: 97% Weight: 174 lbs 12/01/2017 Blood Pressure 1: 124/74 Code: 8480-6 BMI: 29.9 Code: 59805-5 Heart Rate 1: 110 bpm Height: 5'4" SpO2: 97% Temperature: 37.4 (C) / 99.4 (F) Weight: 174 lbs 10/10/2017 Blood Pressure 1: 128/80 Code: 8480-6 BMI: 29.8 Code: 99389-2 Heart Rate 1: 91 bpm Height: 5'4" SpO2: 98% Temperature: 36.5 (C) / 97.7 (F) Weight: 173 lbs 8 oz 09/20/2017 Blood Pressure 1: 152/88 Code: 8480-6 BMI: 29.9 Code: 05902-9 Heart Rate 1: 87 bpm Height: 5'4" SpO2: 96% Weight: 174 lbs 09/12/2017 Blood Pressure 1: 134/74 Code: 8480-6 BMI: 29.9 Code: 99438-3 Heart Rate 1: 90 bpm Height: 5'4" SpO2: 96% Weight: 174 lbs 08/18/2017 Blood Pressure 1: 128/68 Code: 8480-6 Heart Rate 1: 88 bpm Height: SpO2: 97% Weight: 06/12/2017 Blood Pressure 1: 130/70 Code: 8480-6 BMI: 29.2 Code: 07244-2 Heart Rate 1: 94 bpm Height: 5'4" SpO2: 95% Weight: 170 lbs 05/04/2017 Blood Pressure 1: 138/80 Code: 8480-6 BMI: 29.9 Code: 26217-1 Heart Rate 1: 84 bpm Height: 5'4" SpO2: 97% Weight: 174 lbs 04/21/2017 Blood Pressure 1: 130/72 Code: 8480-6 BMI: 29.9 Code: 78411-0 Heart Rate 1: 90 bpm Height: 5'4" SpO2: 96% Weight: 174 lbs 03/03/2017 Blood Pressure 1: 136/78 Code: 8480-6 BMI: 29.9 Code: 94712-3 Heart Rate 1: 91 bpm Height: 5'4" SpO2: 96% Weight: 174 lbs 02/13/2017 Blood Pressure 1: 116/74 Code: 8480-6 BMI: 29.2 Code: 31371-2 Heart Rate 1: 91 bpm Height: 5'4" SpO2: 94% Weight: 170 lbs 02/09/2017 Blood Pressure 1: 120/72 Code: 8480-6 BMI: 29.0 Code: 80778-3 Heart Rate 1: 100 bpm Height: 5'4" SpO2: 97% Temperature: 37.4 (C) / 99.3 (F) Weight: 169 lbs 12/14/2016 Blood Pressure 1: 130/72 Code: 8480-6 BMI: 29.5 Code: 11763-1 Heart Rate 1: 100 bpm Height: 5'4" SpO2: 95% Weight: 172 lbs 12/05/2016 Blood Pressure 1: 136/78 Code: 8480-6 BMI: 29.2 Code: 00894-2 Heart Rate 1: 117 bpm Height: 5'4" SpO2: 97% Weight: 170 lbs 09/23/2016 Blood Pressure 1: 130/74 Code: 8480-6 BMI: 30.2 Code: 57185-3 Heart Rate 1: 102 bpm Height: 5'4" SpO2: 94% Weight: 176 lbs 09/14/2016 Blood Pressure 1: 128/74 Code: 8480-6 BMI: 29.4 Code: 39937-8 Heart Rate 1: 90 bpm Height: 5'4" SpO2: 97% Weight: 171 lbs 07/08/2016 Blood Pressure 1: 118/64 Code: 8480-6 BMI: 28.8 Code: 73370-3 Heart Rate 1: 115 bpm Height: 5'4" SpO2: 97% Weight: 168 lbs 06/17/2016 Blood Pressure 1: 144/86 Code: 8480-6 BMI: 29.5 Code: 30316-7 Heart Rate 1: 94 bpm Height: 5'4" [...] with (acute) exacerbation[ICD10: J45.41] Leisa Keys MD, [facility] CPT-4: 13549 02/25/2019 74322 EST. PATIENT, LEVEL III Diagnosis: Varicose veins of left lower extremity with pain[ICD10: I83.812] Diagnosis: Other allergic rhinitis[ICD10: J30.89] Diagnosis: Other chronic sinusitis[ICD10: J32.8] Leisa Keys MD, [facility] CPT- 4: 49348 02/08/2019 08272 EST. PATIENT, LEVEL III Diagnosis: Left lower quadrant pain[ICD10: R10.32] Diagnosis: Diarrhea, unspecified[ICD10: R19.7] [facility] CPT- 4: 19185 02/05/2019 86700 EST. PATIENT, LEVEL III Diagnosis: Tinea unguium[ICD10: B35.1] Diagnosis: Localized edema[ICD10: R60.0] [facility] CPT-4: 14550 01/23/2019 07917 EST. PATIENT, LEVEL III Diagnosis: Essential (primary) hypertension[ICD10: I10] Diagnosis: Mixed hyperlipidemia[ICD10: E78.2] [facility] CPT-4: 61864 01/09/2019 ([id number]) 67844 EST. PATIENT, LEVEL III Diagnosis: Cough[ICD10: R05] Diagnosis: Moderate persistent asthma with (acute) exacerbation[ICD10: J45.41] Lisseth Keys MD, [facility] CPT-4: 56115 10/05/2018 16851 EST. PATIENT, LEVEL III Diagnosis: Diverticulitis of large intestine without perforation or abscess with bleeding[ICD10: K57.33] Leisa Keys MD, [facility] CPT-4: 99485 08/20/2018 66082 EST. PATIENT, LEVEL IV Diagnosis: Other acute sinusitis[ICD10: J01.80] Diagnosis: Other allergic rhinitis[ICD10: J30.89] Leisa Keys MD, [facility] CPT- 4: 69978 07/24/2018 71797 EST. PATIENT, LEVEL III Diagnosis: Zoster without complications[ICD10: B02.9] Lisseth Keys MD, [facility] CPT-4: 59655 05/07/2018 89445 EST. PATIENT, LEVEL IV Diagnosis: Cough[ICD10: R05] Diagnosis: Fever presenting with conditions classified elsewhere[ICD10: R50.81] Leisa Keys MD, [facility] CPT-4: 66470 04/20/2018 81051 EST. PATIENT, LEVEL III Diagnosis: Other fatigue[ICD10: R53.83] Diagnosis: Vitamin D deficiency, unspecified[ICD10: E55.9] Diagnosis: Paresthesia of skin[ICD10: R20.2] Diagnosis: Mixed hyperlipidemia[ICD10: E78.2] Diagnosis: Cellulitis of left toe[ICD10: L03.032] Diagnosis: Essential (primary) hypertension[ICD10: I10] Leisa Keys MD, [facility] CPT-4: 57553 04/09/2018 38374 EST. PATIENT, LEVEL IV Diagnosis: Acute bronchitis due to other specified organisms[ICD10: J20.8] Diagnosis: Moderate persistent asthma with (acute) exacerbation[ICD10: J45.41] Leisa Keys MD, [facility] CPT-4: 96127 12/08/2017 81892 EST. PATIENT, LEVEL IV Diagnosis: Other acute sinusitis[ICD10: J01.80] Diagnosis: Other allergic rhinitis[ICD10: J30.89] Diagnosis: Moderate persistent asthma with (acute) exacerbation[ICD10: J45.41] Leisa Keys MD, [facility] CPT-4: 86056 12/01/2017 18863 EST. PATIENT, LEVEL IV Diagnosis: Moderate persistent asthma with (acute) exacerbation[ICD10: J45.41] Diagnosis: Other allergic rhinitis[ICD10: J30.89] Diagnosis: Gastro-esophageal reflux disease without esophagitis[ICD10: K21.9] Leisa Keys MD [facility] CPT-4: 87124 10/10/2017 26563 EST. PATIENT, LEVEL III Diagnosis: Moderate persistent asthma with (acute) exacerbation[ICD10: J45.41] Diagnosis: Other allergic rhinitis[ICD10: J30.89] Diagnosis: Mixed hyperlipidemia[ICD10: E78.2] Leisa Keys MD [facility] CPT-4: 35378 09/20/2017 71436 EST. PATIENT, LEVEL IV Diagnosis: Acute laryngopharyngitis[ICD10: J06.0] Diagnosis: Other acute sinusitis[ICD10: J01.80] Diagnosis: Other allergic rhinitis[ICD10: J30.89] Leisa Keys MD [facility] CPT- 4: 15872 09/12/2017 08580 EST. PATIENT, LEVEL IV Diagnosis: Diverticulitis of large intestine without perforation or abscess with bleeding[ICD10: K57.33] Leisa Keys MD [facility] CPT-4: 43184 08/18/2017 32990 EST. PATIENT, LEVEL IV Diagnosis: Other allergic rhinitis[ICD10: J30.89] Diagnosis: Moderate persistent asthma with (acute) exacerbation[ICD10: J45.41] Leisa Keys MD [facility] CPT-4: 66075 06/12/2017 66688 EST. PATIENT, LEVEL IV Diagnosis: Diverticulitis of large intestine without perforation or abscess with bleeding[ICD10: K57.33] Leisa Keys MD [facility] CPT-4: 71638 05/04/2017 93175 EST. PATIENT, LEVEL IV Diagnosis: Other allergic rhinitis[ICD10: J30.89] Diagnosis: Moderate persistent asthma with (acute) exacerbation[ICD10: J45.41] Leisa Keys MD [facility] CPT-4: 46213 04/21/2017 29835 EST. PATIENT, LEVEL III Diagnosis: Moderate persistent asthma with (acute) exacerbation[ICD10: J45.41] Leisa Keys MD, [facility] CPT-4: 93214 03/03/2017 75817 EST. PATIENT, LEVEL IV Diagnosis: Moderate persistent asthma, uncomplicated[ICD10: J45.40] Diagnosis: Other mucopurulent conjunctivitis, left eye[ICD10: H10.022] Diagnosis: Acute laryngopharyngitis[ICD10: J06.0] Leisa Keys MD, [facility] CPT- 4: 68185 02/13/2017 55999 EST. PATIENT, LEVEL IV Diagnosis: Acute laryngopharyngitis[ICD10: J06.0] Diagnosis: Other acute sinusitis[ICD10: J01.80] Diagnosis: Other allergic rhinitis[ICD10: J30.89] Leisa Keys MD, [facility] CPT- 4: 62456 02/09/2017 29565 EST. PATIENT, LEVEL III Diagnosis: Other allergic rhinitis[ICD10: J30.89] Diagnosis: Moderate persistent asthma, uncomplicated[ICD10: J45.40] eLisa Keys MD, [facility] CPT-4: 17636 12/14/2016 44352 EST. PATIENT, LEVEL III Diagnosis: Other acute sinusitis[ICD10: J01.80] Diagnosis: Other allergic rhinitis[ICD10: J30.89] Diagnosis: Moderate persistent asthma, uncomplicated[ICD10: J45.40] Diagnosis: Gastro-esophageal reflux disease without esophagitis[ICD10: K21.9] Leisa Keys MD, [facility] CPT-4: 15014 12/05/2016 46605 EST. PATIENT, LEVEL IV Diagnosis: Other allergic rhinitis[ICD10: J30.89] Diagnosis: Moderate persistent asthma, uncomplicated[ICD10: J45.40] Diagnosis: Cough[ICD10: R05] Leisa Keys MD, [facility] CPT-4: 65179 09/23/2016 16777 EST. PATIENT, LEVEL IV Diagnosis: Moderate persistent asthma, uncomplicated[ICD10: J45.40] Diagnosis: Other allergic rhinitis[ICD10: J30.89] Leisa Keys MD [facility] CPT- 4: 09265 09/14/2016 55209 EST. PATIENT, LEVEL IV Diagnosis: Other acute sinusitis[ICD10: J01.80] [facility] CPT- 4: 20986 07/08/2016 (16640) PREV VISIT NEW AGE 40-64 Diagnosis: Encounter for gynecological examination (general) (routine) without abnormal findings[ICD10: Z01.419] Diagnosis: Moderate persistent asthma, uncomplicated[ICD10: J45.40] Diagnosis: Essential (primary) hypertension[ICD10: I10] Diagnosis: Mixed hyperlipidemia[ICD10: E78.2] [facility] CPT-4: 43082 06/17/2016 Plan of Care Planned Activity Notes [...] acute changes. 02/25/2019 Appointment: Leisa Kirkpatrick WPtel: [address] [place] [address] (30 min) Complex 02/25/2019 Patient Education: Patient [...] vein specialist. 02/08/2019 Appointment: Leisa Kirkpatrick WPtel: [facility]8 [facility]66[facility] (30 min) Complex 02/08/2019 Patient [...] stomach. 02/05/2019 Appointment: Leisa Kirkpatrick WPtel: [phone] (30 min) Complex 02/05/2019 Patient Education: [...] or concerns. 01/23/2019 Appointment: Leisa Kirkpatrick WPtel: [facility]8 [facility] (30 min) Complex 01/23/2019 Patient Education: Patient Medication Summary Completed 01/23/2019 Visit Plan: pt is on chronic antihypertensive medication - the medication has been adjusted down to attempt to alleviate the low blood pressures. 01/09/2019 Appointment: Leisa Kirkpatrick WPtel: [facility]4 [facility] (30 min) Complex 01/09/2019 Patient Education: Patient [...] changes. 10/05/2018 Appointment: Lisseth Greene WPtel: [phone] [phone] [place] (15 min) Moderate 10/05/2018 Patient Education: Patient Medication Summary Completed 10/05/2018 Visit Plan: Diverticulitis - rx for antibiotic sent to pt's pharmacy - pt advised to avoid seeds, nuts, popcorn, or any other food which has been proven to upset the pt's stomach. 08/20/2018 Appointment: Leisa Kirkpatrick WPtel: [phone] [facility] (15 min) Moderate 08/20/2018 Patient Education: Patient [...] allergy spray. 07/24/2018 Appointment: Leisa Kirkpatrick WPtel: [facility]3 [facility] [place] (15 min) Moderate 07/24/2018 Patient Education: Patient Medication Summary Completed 07/24/2018 Appointment: Leisa Kirkpatrick WPtel: [facility]0 [facility] [place] (30 min) Complex 05/14/2018 Visit Plan: [...] contagious. 05/07/2018 Appointment: Lisseth Greene WPtel: [phone] [phone] [place] (15 min) Moderate 05/07/2018 Patient Education: [...] or concerns. 04/20/2018 App[facility]ment[phone] [place] ([facility] min) Moderate 04/20/2018 Patient Education: [...] indicated. 04/09/2018 Appointment: [phone] (15 min) Moderate 04/09/2018 Patient Education: Patient Medication Summary Completed 04/09/2018 Patient Education: Patient Medication Summary Completed 04/09/2018 Care Plan: B12 Pending 04/09/2018 Care Plan: Folate Pending 04/09/2018 Care Plan: Vitamin D 25 Oh Pending 04/09/2018 Care Plan: Lipid Pending 04/09/2018 Care Plan: SCREENINGMAMMOGRAPHYDIGITAL LOINC : 90113-5 Pending 04/09/2018 Visit Plan: Bronchitis - acute [...] changes. 12/08/2017 Appointment: [phone] ([facility]) Complex 12/08/2017 Patient [...] acute changes. 12/01/2017 Appointment: [facility]patrick [facility] [phone] [facility] (15 min) Moderate 12/01/2017 Patient [...] improving. 10/10/2017 Appointment: [phone] [facility] (15 min) Moderate 10/10/2017 Patient Education: Patient Medication Summary Completed 10/10/2017 Appointment: [phone] (15 min) Moderate 10/06/2017 Visit Plan: Asthma [...] medications. 09/20/2017 Appointment: [facility] Kirkpatrick [phone] [facility] (15 min) Moderate 09/20/2017 Patient Education: Patient [...] allergy spray. 09/12/2017 Appointment: Leisa Kirkpatrickl: [phone] [facility] (15 min) Moderate 09/12/2017 Patient Education: Patient Medication Summary Completed 09/12/2017 Patient Education: Obesity Completed 09/12/2017 Visit Plan: Diverticulitis - rx for antibiotic sent to pt's pharmacy - pt advised to avoid seeds, nuts, popcorn, or any other food which has been proven to upset the pt's stomach. 08/18/2017 Appointment: Leisa Kirkpatrick[facility] (30 min) Complex 08/18/2017 Patient [...] steroid allergy spray. 06/12/2017 Appointment: Leisa Kirkpatricktel: [phone] [facility] (10 min) Simple 06/12/2017 Patient Education: Patient Medication Summary Completed 06/12/2017 Visit Plan: Diverticulitis - rx for antibiotic sent to pt's pharmacy - pt advised to avoid seeds, nuts, popcorn, or any other food which has been proven to upset the pt's stomach. 05/04/2017 Appointment: Leisa Kirkpatricktel: [phone] [facility] (30 min) Complex 05/04/2017 Patient Education: Patient [...] allergy spray. 04/21/2017 Appointment: [facility]patricktel[phone] (15 min) Moderate 04/21/2017 Patient [...] changes. 03/03/2017 Appointment: Leisa Kirkpatrick WPtel: [phone] [facility] (30 min) Complex 03/03/2017 Patient Education: Patient [...] daily. 02/13/2017 Appointment: [facility] Kirkpatrick [facility]el[phone] (10 min) Simple 02/13/2017 Patient [...] spray. 02/09/2017 Appointment: Leisa Kirkpatrick WPtel: [phone] [facility] (15 min) Moderate 02/09/2017 Patient Education: Patient [...] spray. 12/14/2016 Appointment: Leisa Kirkpatrick WPtel: [phone] [facility] (15 min) Moderate 12/14/2016 Patient Education: Patient [...] improving. 12/05/2016 Appointment: [facility]el[id number] ([facility] min) Complex 12/05/2016 Patient [...] changes. 09/23/2016 Appointment: [facility]iss[facility] Greene [facility]el[phone] [place] (30 min) Complex 09/23/2016 Patient Education: [...] improvement. Allerg ies/asthma - pt sees an adaptive physical education specialist who recently started her on Qvar and dexilant. They are referring her to pulmonology (Dr. Mcconnell) - pt is to notify clinic with any questions or concerns. 07/08/2016 Appointment: Lisseth Greene WPtel: [phone] (15 min) Moderate 07/08/2016 Patient Education: Patient [...] to medications. 06/17/2016 Appointment: Lisseth Greene WPtel: [phone] [place] New Patient 06/17/2016 Patient Education: Patient Medication Summary Completed 06/17/2016 Care Plan: PAP Pending 06/17/2016 Instructions Comment . Well Adult Female - exam completed. [...] show improvement. Allergies/asthma - pt sees an adaptive physical education specialist who recently started her on Qvar and dexilant. They are referring her to pulmonology (Dr. Mcconnell) - pt is to notify clinic with any questions or concerns. prednisone 40mg daily x 3 days, then [...] is stable, monitor for acute changes. . URI - Pt advised to increase [...] is stable, monitor for acute changes . Diverticulitis - rx for antibiotic sent [...] into affected eye four times daily. . Sinusitis - Pt has acute infection [...] is stable, monitor for acute changes. . URI - Pt advised to increase [...] with any changes, questions, or concerns. . Asthma - chronic problem for this [...] in the nasal steroid allergy spray. . Left great toe infection - The [...] check labs and treat as indicated. . Shingles - Herpes Zoster - acute [...] been proven to upset the pt's stomach. will send bactrim to start over the weekend if you ankle gets any worse called out the gentamycin rinse to [facility] take aleve 1 pill twice a day x 5 days - if your ankle is no better on Monday then we will order a US will refer to Dr. Bustos in [place] for varicose veins. . Allergies - chronic [...] treatment for varicose veins with vein specialist. stop pravastatin x 3 weeks cut losartan in half . pt is on chronic antihypertensive medication - the medication has been adjusted down to attempt to alleviate the low blood pressures. probiotic and salt water gargles 3 times [...] been proven to upset the pt's stomach. Levocetirizine - try instead of the zyrtec [...] proven to upset the pt's stomach. . Sinusitis - Pt has acute infection [...] if the symptoms are not improving. . Edema - pt has been advised [...] with any changes, questions, or concerns. . Bronchitis - acute case of bronchitis [...]
--- OUTSIDE RECORDS SUMMARY | 2019-03-30 10:13 | XMS REPORT | CCD ---
Author Author Leisa Kirkpatrick MD, [facility] Address [address] [place] [address] Phone Care Team Providers Care Senior Financial Name Role Phone PP Unavailable CCM Unavailable Summary Purpose Interface Exchange Insurance Providers Payer name Policy type / Coverage type Covered alliance party ID Effective Begin Date Effective End Date [facility] [id number] 2015 Unknown Family history Father Diagnosis Age At Onset Heart Attack Unknown genetic disease Unknown Skin cancer Unknown Hypertension Unknown Mother Diagnosis Age At Onset Stroke Unknown Daughter Diagnosis Age At Onset Asthma Unknown Arthritis Unknown Social History Social History Element Codes Description Effective Dates Marital status Unknown omar 06/17/2016 Number of children Unknown 2 06/17/[address]: 342447897 Never smoker 06/17/2016 Alcohol history Unknown occasionally drinks alcohol 06/17/2016 Allergies, Adverse Reactions, Alerts Allergies, Adverse Reactions, Alerts data not found Past Medical History Illness Codes Condition Status Onset Date Resolved Date Diverticulitis of large intestine without perforation or abscess with bleeding ICD-9: 562.13 ICD-10: K57.33 Active 05/04/2017 Unknown Moderate persistent asthma with (acute) exacerbation ICD-9: 493.12 ICD-10: J45.41 Active 03/03/2017 Unknown Other allergic rhinitis ICD-9: 477.8 ICD-10: J30.89 Active 09/22/2016 Unknown Asthma Unknown Active 02/13/2017 Unknown Acute laryngopharyngitis ICD-9: 465.0 ICD-10: J06.0 Active 02/09/2017 Unknown Moderate persistent asthma, uncomplicated ICD-9: 493.90 ICD-10: J45.40 Active 09/22/2016 Unknown Other acute sinusitis ICD- 9: 461.8 ICD-10: J01.80 Active 07/07/2016 Unknown Other mucopurulent conjunctivitis, left eye ICD-9: 372.03 ICD-10: H10.022 Active 02/13/2017 Unknown Gastro-esophageal reflux disease without esophagitis ICD-9: 530.81 ICD-10: K21.9 Active 12/05/2016 Unknown Cough ICD-9: 786.2 ICD-10: R05 Active 09/22/2016 Unknown Encounter for gynecological examination (general) (routine) without abnormal findings ICD-9: V72.31 ICD-10: Z01.419 Active 06/16/2016 Unknown Essential (primary) hypertension ICD-9: 401.9 ICD-10: I10 Active 06/16/2016 Unknown Mixed hyperlipidemia ICD- 9: 272.4 ICD-10: E78.2 Active 06/16/2016 Unknown Problems Condition Codes Effective Dates Condition Status Diverticulitis of large intestine without perforation or abscess with bleeding ICD-9: 562.13 ICD-10: K57.33 05/04/2017 Active Moderate persistent asthma with (acute) exacerbation ICD-9: 493.12 ICD-10: J45.41 03/03/2017 Active Other allergic rhinitis ICD-9: 477.8 ICD-10: J30.89 09/22/2016 Active Asthma Unknown 02/13/2017 Active Acute laryngopharyngitis ICD-9: 465.0 ICD-10: J06.0 02/09/2017 Active Moderate persistent asthma, uncomplicated ICD-9: 493.90 ICD-10: J45.40 09/22/2016 Active Other acute sinusitis ICD- 9: 461.8 ICD-10: J01.80 07/07/2016 Active Other mucopurulent conjunctivitis, left eye ICD-9: 372.03 ICD-10: H10.022 02/13/2017 Active Gastro-esophageal reflux disease without esophagitis ICD-9: 530.81 ICD-10: K21.9 12/05/2016 Active Cough ICD-9: 786.2 ICD-10: R05 09/22/2016 Active Encounter for gynecological examination (general) (routine) without abnormal findings ICD-9: V72.31 ICD-10: Z01.419 06/16/2016 Active Essential (primary) hypertension ICD-9: 401.9 ICD-10: I10 06/16/2016 Active Mixed hyperlipidemia ICD- 9: 272.4 ICD-10: E78.2 06/16/2016 Active Medications Medication Codes Instructions Start Date Stop Date Status Fill Instructions Cipro 500 mg tablet RxNorm: 774348 1 Tablet(s) PO BID 05/04/2017 05/13/2017 Active metronidazole 500 mg tablet RxNorm: 505594 1 Tablet(s) PO TID 05/04/2017 05/13/2017 Active Zantac 150 mg tablet RxNorm: 017661 1 Tablet(s) PO BID 04/27/2017 08/24/2017 Active levocetirizine 5 mg tablet RxNorm: 099088 1 Tablet(s) PO daily 04/21/2017 05/20/2017 Active prednisone 20 mg tablet RxNorm: 048927 2 Tablet(s) PO BID start if getting worse 04/21/2017 04/25/2017 Inactive prednisone 20 mg tablet RxNorm: 600646 1 Tablet(s) PO BID Start with 1 pill daily and see how effective it is - if still not effective increase to twice a day as discussed 03/03/2017 03/07/2017 Inactive lisinopril 10 mg tablet RxNorm: 083199 1 Tablet(s) PO daily 03/01/2017 08/27/2017 Active ciprofloxacin 0.3 % eye drops RxNorm: 620808 2 Drop(s) OPH QID 02/13/2017 02/17/2017 Inactive Zithromax 250 mg tablet RxNorm: 777985 1 Tablet(s) PO daily 02/13/2017 02/15/2017 Inactive Zithromax Z-Maykel 250 mg tablet RxNorm: 674861 1 Tablet(s) PO UD 02/09/2017 No Stop Date Active Zithromax Z-Maykel 250 mg tablet RxNorm: 381097 1 Tablet(s) PO UD 02/09/2017 02/08/2017 Inactive Premarin 0.625 mg/gram vaginal cream RxNorm: 208387 1 Application VAG BIW 12/30/2016 No Stop Date Active Zantac 150 mg tablet RxNorm: 100212 1 Tablet(s) PO BID 12/05/2016 04/03/2017 Inactive prednisone 20 mg tablet RxNorm: 278132 2 Tablet(s) PO daily 12/05/2016 12/09/2016 Inactive Zithromax Z-Maykel 250 mg tablet RxNorm: 010227 Tablet(s) PO UD 12/05/2016 02/08/2017 Inactive lisinopril 10 mg tablet RxNorm: 915588 1 Tablet(s) PO daily 10/31/2016 02/27/2017 Inactive Tessalon Perles 100 mg capsule RxNorm: 836194 2 Capsule(s) PO TID as needed dyspnea 09/23/2016 09/27/2016 Inactive prednisone 20 mg tablet RxNorm: 720822 2 Tablet(s) PO daily 09/23/2016 09/27/2016 Inactive Qvar 80 mcg/actuation Metered Aerosol oral inhaler RxNorm: 772366 1 INH BID started by her manufacturing specialist 08/02/2016 09/12/2016 Inactive Zithromax Z-Maykel 250 mg tablet RxNorm: 645196 Tablet(s) PO UD 07/08/2016 12/04/2016 Inactive Tessalon Perles 100 mg capsule RxNorm: 730969 2 Capsule(s) PO TID as needed dyspnea 07/08/2016 07/12/2016 Inactive prednisone 20 mg tablet RxNorm: 694623 1 Tablet(s) PO UD 07/08/2016 09/22/2016 Inactive Premarin 0.625 mg/gram vaginal cream RxNorm: 180664 1 Application VAG BIW 06/21/2016 12/29/2016 Inactive Dulera 200 mcg-5 mcg/actuation HFA aerosol inhaler RxNorm: 5087592 2 INH Q2H 06/17/2016 No Stop Date Active lisinopril 10 mg tablet RxNorm: 142288 1 Tablet(s) PO daily 06/17/2016 10/14/2016 Inactive olopatadine 0.1 % eye drops RxNorm: 7711370 Drop(s) OPH PRN No Start Date Active ProAir HFA 90 mcg/actuation aerosol inhaler RxNorm: 600055 2 Puff(s) INH PRN No Start Date Active Zyrtec 10 mg capsule RxNorm: 7912091 1 Capsule(s) PO daily No Start Date Active lutein 20 mg capsule RxNorm: 959375 1 Capsule(s) PO daily No Start Date Active [place] Oil 1,000 mg capsule RxNorm: 1 Capsule(s) PO daily No Start Date Active montelukast 10 mg tablet RxNorm: 598683 1 Tablet(s) PO daily No Start Date Active Vitamin D3 1,000 unit capsule RxNorm: 230543 Capsule(s) PO No Start Date Active B12 sublingual RxNorm: 55410 sublingual No Start Date Active pravastatin 20 mg tablet RxNorm: 825820 1 Tablet(s) PO daily No Start Date Active zinc picolinate 50 mg tablet RxNorm: 1 Tablet(s) PO daily No Start Date Active chromium picolinate 200 mcg capsule RxNorm: 422179 1 Capsule(s) PO daily No Start Date Active magnesium RxNorm: 1 PO BID No Start Date Active premarin 0.5% Vaginal cream RxNorm: 1 VAG daily No Start Date Active Xolair 150 mg subcutaneous solution RxNorm: 5688209 1 SQ monthly No Start Date Active folate #7-pc dha-pe [id number]-multivitamin #46 oral RxNorm: oral No Start Date Active prednisone RxNorm: 8640 miscellaneous No Start Date Active Dulera 200 mcg-5 mcg/actuation HFA aerosol inhaler RxNorm: 1397276 2 INH Q4H No Start Date 06/16/2016 Inactive lisinopril 10 mg tablet RxNorm: 433441 1 Tablet(s) PO daily No Start Date 06/16/2016 Inactive Medication Administered No Medication Administered data Immunizations No Immunization data Assessments Condition Codes Effective Dates Diverticulitis of large intestine without perforation or abscess with bleeding ICD-10: K57.33 ICD-9: 562.13 05/04/2017 Moderate persistent asthma with (acute) exacerbation ICD-10: J45.41 ICD-9: 493.12 04/21/2017 Other allergic rhinitis ICD-10: J30.89 ICD-9: 477.8 04/21/2017 Other mucopurulent conjunctivitis, left eye ICD-10: H10.022 ICD-9: 372.03 02/13/2017 Acute laryngopharyngitis ICD-10: J06.0 ICD-9: 465.0 02/13/2017 Moderate persistent asthma, uncomplicated ICD-10: J45.40 ICD-9: 493.90 02/13/2017 Other acute sinusitis ICD-10: J01.80 ICD-9: 461.8 02/09/2017 Gastro-esophageal reflux disease without esophagitis ICD-10: K21.9 ICD-9: 530.81 12/05/2016 Cough ICD-10: R05 ICD-9: 786.2 09/23/2016 Mixed hyperlipidemia ICD-10: E78.2 ICD-9: 272.4 06/17/2016 Essential (primary) hypertension ICD-10: I10 ICD-9: 401.9 06/17/2016 Encounter for gynecological examination (general) (routine) without abnormal findings ICD-10: Z01.419 ICD-9: V72.31 06/17/2016 Reason For Visit Reason For Visit Effective Dates Notes abdominal pain 05/04/2017 cough 04/21/2017 cough 03/03/2017 cough 02/13/2017 sinus congestion 02/09/2017 cough 12/14/2016 sinus congestion 12/05/2016 cough 09/23/2016 nasal allergies 09/14/2016 sinus congestion 07/08/2016 well woman exam (40-65 years) 06/17/2016 Results Observation Observation Code Item Item Code Result Date C RAP A SC [id number] Strep A TNP:Lab Request 02/09/2017 C RAP A SC [id number] IC OK? TNP:Lab Request 02/09/2017 Review of Systems System Result Effective Dates Constitutional recent illness 05/04/2017 Constitutional No chills [...] No Procedures data Vital Signs Date Vital 05/04/2017 Blood Pressure 1: 138/80 Code: 8480-6 BMI: 29.9 Code: 00722-2 Heart Rate 1: 84 bpm Height: 5'4" SpO2: 97% Weight: 174 lbs 04/21/2017 Blood Pressure 1: 130/72 Code: 8480-6 BMI: 29.9 Code: 74281-7 Heart Rate 1: 90 bpm Height: 5'4" SpO2: 96% Weight: 174 lbs 03/03/2017 Blood Pressure 1: 136/78 Code: 8480-6 BMI: 29.9 Code: 09803-3 Heart Rate 1: 91 bpm Height: 5'4" SpO2: 96% Weight: 174 lbs 02/13/2017 Blood Pressure 1: 116/74 Code: 8480-6 BMI: 29.2 Code: 06740-2 Heart Rate 1: 91 bpm Height: 5'4" SpO2: 94% Weight: 170 lbs 02/09/2017 Blood Pressure 1: 120/72 Code: 8480-6 BMI: 29.0 Code: 27122-0 Heart Rate 1: 100 bpm Height: 5'4" SpO2: 97% Temperature: 37.4 (C) / 99.3 (F) Weight: 169 lbs 12/14/2016 Blood Pressure 1: 130/72 Code: 8480-6 BMI: 29.5 Code: 82068-9 Heart Rate 1: 100 bpm Height: 5'4" SpO2: 95% Weight: 172 lbs 12/05/2016 Blood Pressure 1: 136/78 Code: 8480-6 BMI: 29.2 Code: 37150-5 Heart Rate 1: 117 bpm Height: 5'4" SpO2: 97% Weight: 170 lbs 09/23/2016 Blood Pressure 1: 130/74 Code: 8480-6 BMI: 30.2 Code: 33635-5 Heart Rate 1: 102 bpm Height: 5'4" SpO2: 94% Weight: 176 lbs 09/14/2016 Blood Pressure 1: 128/74 Code: 8480-6 BMI: 29.4 Code: 82336-6 Heart Rate 1: 90 bpm Height: 5'4" SpO2: 97% Weight: 171 lbs 07/08/2016 Blood Pressure 1: 118/64 Code: 8480-6 BMI: 28.8 Code: 11510-8 Heart Rate 1: 115 bpm Height: 5'4" SpO2: 97% Weight: 168 lbs 06/17/2016 Blood Pressure 1: 144/86 Code: 8480-6 BMI: 29.5 Code: 44265-5 Heart Rate 1: 94 bpm Height: 5'4" SpO2: 96% Weight: 172 lbs Functional Status No Functional Status data History of Present Illness Symptom Name Status Result Effective Date Notes abdominal pain Location in the LLQ 05/04/2017 [...] Performer Location Codes Date EST. PATIENT, LEVEL IV Diagnosis: Diverticulitis of large intestine without perforation or abscess with bleeding[ICD10: K57.33] Leisa Keys MD, [facility] CPT-4: 17630 05/04/2017 49305 EST. PATIENT, LEVEL IV Diagnosis: Other allergic rhinitis[ICD10: J30.89] Diagnosis: Moderate persistent asthma with (acute) exacerbation[ICD10: J45.41] Leisa Keys MD, [facility] CPT-4: 09659 04/21/2017 83924 EST. PATIENT, LEVEL III Diagnosis: Moderate persistent asthma with (acute) exacerbation[ICD10: J45.41] Leisa Keys MD, [facility] CPT-4: 92547 03/03/2017 98129 EST. PATIENT, LEVEL IV Diagnosis: Moderate persistent asthma, uncomplicated[ICD10: J45.40] Diagnosis: Other mucopurulent conjunctivitis, left eye[ICD10: H10.022] Diagnosis: Acute laryngopharyngitis[ICD10: J06.0] Leisa Keys MD, [facility] CPT- 4: 29388 02/13/2017 72808 EST. PATIENT, LEVEL IV Diagnosis: Acute laryngopharyngitis[ICD10: J06.0] Diagnosis: Other acute sinusitis[ICD10: J01.80] Diagnosis: Other allergic rhinitis[ICD10: J30.89] Leisa Keys MD, [facility] CPT- 4: 72180 02/09/2017 17918 EST. PATIENT, LEVEL III Diagnosis: Other allergic rhinitis[ICD10: J30.89] Diagnosis: Moderate persistent asthma, uncomplicated[ICD10: J45.40] Leisa Keys MD, [facility] CPT-4: 41578 12/14/2016 89760 EST. PATIENT, LEVEL III Diagnosis: Other acute sinusitis[ICD10: J01.80] Diagnosis: Other allergic rhinitis[ICD10: J30.89] Diagnosis: Moderate persistent asthma, uncomplicated[ICD10: J45.40] Diagnosis: Gastro-esophageal reflux disease without esophagitis[ICD10: K21.9] Leisa Keys MD, [facility] CPT-4: 66965 12/05/2016 38773 EST. PATIENT, LEVEL IV Diagnosis: Other allergic rhinitis[ICD10: J30.89] Diagnosis: Moderate persistent asthma, uncomplicated[ICD10: J45.40] Diagnosis: Cough[ICD10: R05] Leisa Keys MD, [facility] CPT-4: 46454 09/23/2016 06058 EST. PATIENT, LEVEL IV Diagnosis: Moderate persistent asthma, uncomplicated[ICD10: J45.40] Diagnosis: Other allergic rhinitis[ICD10: J30.89] Leisa Keys MD, [facility] CPT- 4: 04256 09/14/2016 54223 EST. PATIENT, LEVEL IV Diagnosis: Other acute sinusitis[ICD10: J01.80] Leisa Keys MD, [facility] CPT- 4: 75404 07/08/2016 (40145) PREV VISIT NEW AGE 40-64 Diagnosis: Encounter for gynecological examination (general) (routine) without abnormal findings[ICD10: Z01.419] Diagnosis: Moderate persistent asthma, uncomplicated[ICD10: J45.40] Diagnosis: Essential (primary) hypertension[ICD10: I10] Diagnosis: Mixed hyperlipidemia[ICD10: E78.2] Leisa Keys MD, [facility] CPT-4: 66940 06/17/2016 Plan of Care Planned Activity Notes Codes Status Date Visit Plan: Diverticulitis - rx for antibiotic sent to pt's pharmacy - pt advised to avoid seeds, nuts, popcorn, or any other food which has been proven to upset the pt's stomach. 05/04/2017 Appointment: Leisa Kirkpatrick [facility] [phone] [facility] [phone] (30 min) Complex 05/04/2017 Patient Education: Patient [...] symptoms are beyond acute control with rescue medications.We have reviewed chronic treatment strategy, symptom control, and plans for acute exacerbations. No changes today to the current treatment plan as the patient is stable, monitor for acute heredia es.Allergies - chronic - recommended pt to use allergy medication as prescribed. Pt has been counseled as to the appropriate use of the medication. Pt to call if allergy symptoms are not controlled with the medication.If using nasal spray, instructions as follows: Nasal spray- use twice daily, one spray per nostril twice daily, after 30 minutes, rinse out nose with saline spray.. Use opposite hand per nostril to spray in the nasal steroid allergy spray. 04/21/2017 Appointment: Le[facility] Kirkpatrick [facility] [phone] [facility] [place] (15 min) Moderate 04/21/2017 Patient Education: Patient [...] symptoms are beyond acute control with rescue medications.We have reviewed chronic treatment strategy, symptom control, and plans for acute exacerbations. No changes today to the current treatment plan as the patient is stable, monitor for acute changes. 03/03/2017 Appointment: Leisa Kirkpatrick [facility] [phone] [facility] [place] (30 min) Complex 03/03/2017 Patient Education: Patient Medication Summary Completed 03/03/2017 Patient Education: Obesity Completed 03/03/2017 Visit Plan: URI - Pt advised to increase fluids, vitamin C. Discussed natural and expected course of this diagnosis and need to alert me if symptoms do not follow expected course, or if any worse. RX sent to patient's pharmacy.Asthma - chronic problem for this patient. We have reviewed chronic treatment strategy, symptom control, and plans for acute exacerbations. No changes today to the current treatment plan as the patient is stable, monitor for acute changesConjunctivitis - rx for eye drops/lube sent electronically to the patient's pharmacy. The patient has been instructed to cleanse affected eye with warm washcloth, then place medication into affected eye four times daily. 02/13/2017 Appointment: Leisa Kirkpatrick WPtel: [phone] [phone] (10 min) Simple 02/13/2017 Patient Education: Patient Medication Summary Completed 02/13/2017 Visit Plan: URI - Pt advised to increase fluids, vitamin C. Discussed natural and expected course of this diagnosis and need to alert me if symptoms do not follow expected course, or if any worse. RX sent to patient's pharmacy.Sinusitis - Pt has acute infection - pain in face, maxillary region, Pt informed to use decongestant, RX given to patient, sinus rinses also recommended. Call if symptoms do not show improvement.Allergies - chronic - recommended pt to use allergy medication as prescribed. Pt has been counseled as to the appropriate use of the medication. Pt to call if allergy symptoms are not controlled with the medication.If using nasal spray, instructions as follows: Nasal spray- use twice daily, one spray per nostril twice daily, after 30 minutes, rinse out nose with saline spray.. Use opposite hand per nostril to spray in the nasal steroid allergy spray. 02/09/2017 Appointment: Leisa Kirkpatrick [facility] [phone] [facility] [phone] (15 min) Moderate 02/09/2017 Patient Education: Patient Medication Summary Completed 02/09/2017 Patient Education: Obesity Completed 02/09/2017 Visit Plan: Asthma - chronic problem for this patient. We have reviewed chronic treatment strategy, symptom control, and plans for acute exacerbations. No changes today to the current treatment plan as the patient is stable, monitor for acute changesAllergies - chronic - recommended pt to use allergy medication as prescribed. Pt has been counseled as to the appropriate use of the medication. Pt to call if allergy symptoms are not controlled with the medication.If using nasal spray, instructions as follows: Nasal spray- use twice daily, one spray per nostril twice daily, after 30 minutes, rinse out nose with saline spray.. Use opposite hand per nostril to spray in the nasal steroid allergy spray. 12/14/2016 Appointment: Leisa Kirkpatrick [facility] [phone] [facility] [phone] (15 min) Moderate 12/14/2016 Patient Education: Patient Medication Summary Completed 12/14/2016 Visit Plan: Sinusitis - Pt has acute infection - pain in face, maxillary region, Pt informed to use decongestant, RX given to patient, sinus rinses also recommended. Call if symptoms do not show improvement.Allergies - chronic - recommended pt to use allergy medication as prescribed. Pt has been counseled as to the appropriate use of the medication. Pt to call if allergy symptoms are not controlled with the medication.If using nasal spray, instructions as follows: Nasal spray- use twice daily, one spray per nostril twice daily, after 30 minutes, rinse out nose with saline spray.. Use opposite hand per nostril to spray in the nasal steroid allergy spray.Asthma - chronic problem for this patient. We have reviewed chronic treatment strategy, symptom control, and plans for acute exacerbations. No changes today to the current treatment plan as the patient is stable, monitor for acute changesEsophageal Reflux - the patient has been counseled against excessive intake of caffeine, spicy foods, p eppermint, and cinnamon - all of which can exacerbate esophageal reflux.The patient is to take medications as prescribed and call the office if the symptoms are not improving. 12/05/2016 Appointment: Leisa Kirkpatrick [facility] [phone] [facility] [phone] (30 min) Complex 12/05/2016 Patient Education: Patient Medication Summary Completed 12/05/2016 Patient Education: Obesity Completed 12/05/2016 Visit Plan: Allergies - chronic - recommended pt to use allergy medication as prescribed. Pt has been counseled as to the appropriate use of the medication. Pt to call if allergy symptoms are not controlled with the medication.If using nasal spray, instructions as follows: Nasal spray- use twice daily, one spray per nostril twice daily, after 30 minutes, rinse out nose with saline spray.. Use opposite hand per nostril to spray in the nasal steroid allergy spray.URI - Pt advised to increase fluids, vitamin C. Discussed natural and expected course of this diagnosis and need to alert me if symptoms do not follow expected course, or if any worse. RX sent to patient's pharmacy.Asthma Exacerbation - Asthma is a chronic problem [...] symptoms are beyond acute control with rescue medications.We have reviewed chronic treatment strategy, symptom control, and plans for acute exacerbations. No changes today to the current treatment plan as the patient is stable, monitor for acute changes. 09/23/2016 Appointment: Lisseth Greene WPtel: [address] [place], [place] [phone] (30 min) [facility] 09/23/2016 Patient Education: Patient Medication Summary Completed 09/23/2016 Patient Education: Obesity Completed 09/23/2016 Visit Plan: Allergies - chronic - recommended pt to use allergy medication as prescribed. Pt has been counseled as to the appropriate use of the medication. Pt to call if allergy symptoms are not controlled with the medication.If using nasal spray, instructions as follows: Nasal spray- use twice daily, one spray per nostril twice daily, after 30 minutes, rinse out nose with saline spray.. Use opposite hand per nostril to spray in the nasal steroid allergy spray.Asthma - chronic problem for this patient. We [...] recommended. Call if symptoms do not show improvement.Allergies/asthma - pt sees an manufacturing specialist who recently started her on Qvar and dexilant. They are referring her to pulmonology (Dr. Mcconnell) - pt is to notify clinic with any questions or concerns. 07/08/2016 Appointment: Lisseth Greene WPtel: [phone] [phone] (15 min) Moderate 07/08/2016 Patient Education: Patient [...] the next year, otherwise, RTC yearly or prn.Hypertension - well controlled - continue with current medications, continue with no added salt diet. Pt has been encouraged to exercise daily.The pt has been advised to call the office if there are any acute concerns about change in blood pressure readings at home.Hyperlipidemia - pt has been counseled about appropriate [...] to medications. 06/17/2016 Appointment: Lisseth Greene WPtel: [phone] [phone] New Patient 06/17/2016 Patient Education: Patient Medication Summary Completed 06/17/2016 Care Plan: PAP Pending 06/17/2016 Instructions Comment . Diverticulitis - rx for antibiotic sent to pt's pharmacy - pt advised to avoid seeds, nuts, popcorn, or any other food which has been proven to upset the pt's stomach. . Asthma - chronic problem for this [...] if the symptoms are not improving. . Well Adult Female - exam completed. [...] into affected eye four times daily. . Allergies - chronic - recommended pt [...] show improvement. Allergies/asthma - pt sees an manufacturing specialist who recently started her on Qvar and dexilant. They are referring her to pulmonology (Dr. Mcconnell) - pt is to notify clinic with any questions or concerns. Levocetirizine - try instead of the zyrtec [...] in the nasal steroid allergy spray. . Allergies - chronic - recommended pt [...]
--- OUTSIDE RECORDS SUMMARY | 2019-03-30 10:14 | XMS REPORT | CCD ---
Author Author Leisa Kirkpatrick MD, [facility] Address [address] [place] [address] Phone Care Team Providers Care Oxygen System Tester Name Role Phone PP Unavailable CCM Unavailable Summary Purpose Interface Exchange Insurance Providers Payer name Policy type / Coverage type Covered green party ID Effective Begin Date Effective End Date [facility] [id number] 2015 Unknown Family history Father Diagnosis Age At Onset Heart Attack Unknown genetic disease Unknown Skin cancer Unknown Hypertension Unknown Mother Diagnosis Age At Onset Stroke Unknown Daughter Diagnosis Age At Onset Asthma Unknown Arthritis Unknown Social History Social History Element Codes Description Effective Dates Marital status Unknown omar 06/17/2016 Number of children Unknown 2 06/17/[address]: 775613044 Never smoker 06/17/2016 Alcohol history Unknown occasionally [...] Fill Instructions Cipro 500 mg tablet RxNorm: 684875 1 Tablet(s) PO BID 05/04/2017 05/13/2017 Active metronidazole 500 mg tablet RxNorm: 718736 1 Tablet(s) PO TID 05/04/2017 05/13/2017 Active Zantac 150 mg tablet RxNorm: 410888 1 Tablet(s) PO BID 04/27/2017 08/24/2017 Active levocetirizine 5 mg tablet RxNorm: 843697 1 Tablet(s) PO daily 04/21/2017 05/20/2017 Active prednisone 20 mg tablet RxNorm: 398032 2 Tablet(s) PO BID start if getting worse 04/21/2017 04/25/2017 Inactive prednisone 20 mg tablet RxNorm: 442000 1 Tablet(s) PO BID Start with 1 pill daily and see how effective it is - if still not effective increase to twice a day as discussed 03/03/2017 03/07/2017 Inactive lisinopril 10 mg tablet RxNorm: 634367 1 Tablet(s) PO daily 03/01/2017 08/27/2017 Active ciprofloxacin 0.3 % eye drops RxNorm: 187938 2 Drop(s) OPH QID 02/13/2017 02/17/2017 Inactive Zithromax 250 mg tablet RxNorm: 695828 1 Tablet(s) PO daily 02/13/2017 02/15/2017 Inactive Zithromax Z-Maykel 250 mg tablet RxNorm: 875578 1 Tablet(s) PO UD 02/09/2017 No Stop Date Active Zithromax Z-Maykel 250 mg tablet RxNorm: 023272 1 Tablet(s) PO UD 02/09/2017 02/08/2017 Inactive Premarin 0.625 mg/gram vaginal cream RxNorm: 259495 1 Application VAG BIW 12/30/2016 No Stop Date Active Zantac 150 mg tablet RxNorm: 497562 1 Tablet(s) PO BID 12/05/2016 04/03/2017 Inactive prednisone 20 mg tablet RxNorm: 213148 2 Tablet(s) PO daily 12/05/2016 12/09/2016 Inactive Zithromax Z-Maykel 250 mg tablet RxNorm: 227321 Tablet(s) PO UD 12/05/2016 02/08/2017 Inactive lisinopril 10 mg tablet RxNorm: 009567 1 Tablet(s) PO daily 10/31/2016 02/27/2017 Inactive Tessalon Perles 100 mg capsule RxNorm: 147239 2 Capsule(s) PO TID as needed dyspnea 09/23/2016 09/27/2016 Inactive prednisone 20 mg tablet RxNorm: 237214 2 Tablet(s) PO daily 09/23/2016 09/27/2016 Inactive Qvar 80 mcg/actuation Metered Aerosol oral inhaler RxNorm: 207984 1 INH BID started by her coding and reimbursement specialist 08/02/2016 09/12/2016 Inactive Zithromax Z-Maykel 250 mg tablet RxNorm: 372906 Tablet(s) PO UD 07/08/2016 12/04/2016 Inactive Tessalon Perles 100 mg capsule RxNorm: 542577 2 Capsule(s) PO TID as needed dyspnea 07/08/2016 07/12/2016 Inactive prednisone 20 mg tablet RxNorm: 760636 1 Tablet(s) PO UD 07/08/2016 09/22/2016 Inactive Premarin 0.625 mg/gram vaginal cream RxNorm: 031801 1 Application VAG BIW 06/21/2016 12/29/2016 Inactive Dulera 200 mcg-5 mcg/actuation HFA aerosol inhaler RxNorm: 5400840 2 INH Q2H 06/17/2016 No Stop Date Active lisinopril 10 mg tablet RxNorm: 224604 1 Tablet(s) PO daily 06/17/2016 10/14/2016 Inactive olopatadine 0.1 % eye drops RxNorm: 7496032 Drop(s) OPH PRN No Start Date Active ProAir HFA 90 mcg/actuation aerosol inhaler RxNorm: 237922 2 Puff(s) INH PRN No Start Date Active Zyrtec 10 mg capsule RxNorm: 4476574 1 Capsule(s) PO daily No Start Date Active lutein 20 mg capsule RxNorm: 432203 1 Capsule(s) PO daily No Start Date Active [place] Oil 1,000 mg capsule RxNorm: 1 Capsule(s) PO daily No Start Date Active montelukast 10 mg tablet RxNorm: 746343 1 Tablet(s) PO daily No Start Date Active Vitamin D3 1,000 unit capsule RxNorm: 623910 Capsule(s) PO No Start Date Active B12 sublingual RxNorm: 33047 sublingual No Start Date Active pravastatin 20 mg tablet RxNorm: 909342 1 Tablet(s) PO daily No Start Date Active zinc picolinate 50 mg tablet RxNorm: 1 Tablet(s) PO daily No Start Date Active chromium picolinate 200 mcg capsule RxNorm: 723465 1 Capsule(s) PO daily No Start Date Active magnesium RxNorm: 1 PO BID No Start Date Active premarin 0.5% Vaginal cream RxNorm: 1 VAG daily No Start Date Active Xolair 150 mg subcutaneous solution RxNorm: 4237766 1 SQ monthly No Start Date Active folate #7-pc dha-pe kvh-PRKT-fnaukr-IF-multivitamin #46 oral RxNorm: oral No Start Date Active prednisone RxNorm: 8640 miscellaneous No Start Date Active Dulera 200 mcg-5 mcg/actuation HFA aerosol inhaler RxNorm: 9161405 2 INH Q4H No Start Date 06/16/2016 Inactive lisinopril 10 mg tablet RxNorm: 086966 1 Tablet(s) PO daily No Start Date [...] Code Result Date C RAP A SC [id number] Strep A TNP:Lab Request 02/09/2017 C RAP A SC [id number] IC OK? TNP:Lab Request 02/09/2017 Review of [...] 1: 138/80 Code: 8480-6 BMI: 29.9 Code: 07343-0 Heart Rate 1: 84 bpm Height: 5'4" SpO2: 97% Weight: 174 lbs 04/21/2017 Blood Pressure 1: 130/72 Code: 8480-6 BMI: 29.9 Code: 82932-0 Heart Rate 1: 90 bpm Height: 5'4" SpO2: 96% Weight: 174 lbs 03/03/2017 Blood Pressure 1: 136/78 Code: 8480-6 BMI: 29.9 Code: 97667-8 Heart Rate 1: 91 bpm Height: 5'4" SpO2: 96% Weight: 174 lbs 02/13/2017 Blood Pressure 1: 116/74 Code: 8480-6 BMI: 29.2 Code: 50126-9 Heart Rate 1: 91 bpm Height: 5'4" SpO2: 94% Weight: 170 lbs 02/09/2017 Blood Pressure 1: 120/72 Code: 8480-6 BMI: 29.0 Code: 89454-1 Heart Rate 1: 100 bpm Height: 5'4" SpO2: 97% Temperature: 37.4 (C) / 99.3 (F) Weight: 169 lbs 12/14/2016 Blood Pressure 1: 130/72 Code: 8480-6 BMI: 29.5 Code: 18746-6 Heart Rate 1: 100 bpm Height: 5'4" SpO2: 95% Weight: 172 lbs 12/05/2016 Blood Pressure 1: 136/78 Code: 8480-6 BMI: 29.2 Code: 23300-2 Heart Rate 1: 117 bpm Height: 5'4" SpO2: 97% Weight: 170 lbs 09/23/2016 Blood Pressure 1: 130/74 Code: 8480-6 BMI: 30.2 Code: 52954-1 Heart Rate 1: 102 bpm Height: 5'4" SpO2: 94% Weight: 176 lbs 09/14/2016 Blood Pressure 1: 128/74 Code: 8480-6 BMI: 29.4 Code: 06583-5 Heart Rate 1: 90 bpm Height: 5'4" SpO2: 97% Weight: 171 lbs 07/08/2016 Blood Pressure 1: 118/64 Code: 8480-6 BMI: 28.8 Code: 54025-1 Heart Rate 1: 115 bpm Height: 5'4" SpO2: 97% Weight: 168 lbs 06/17/2016 Blood Pressure 1: 144/86 Code: 8480-6 BMI: 29.5 Code: 37803-5 Heart Rate 1: 94 bpm Height: 5'4" [...] abscess with bleeding[ICD10: K57.33] Leisa Keys MD, [facility] CPT-4: 95713 05/04/2017 07978 EST. PATIENT, LEVEL IV Diagnosis: Other allergic rhinitis[ICD10: J30.89] Diagnosis: Moderate persistent asthma with (acute) exacerbation[ICD10: J45.41] Leisa Keys MD, [facility] CPT-4: 89355 04/21/2017 86367 EST. PATIENT, LEVEL III Diagnosis: Moderate persistent asthma with (acute) exacerbation[ICD10: J45.41] Leisa Keys MD, [facility] CPT-4: 08357 03/03/2017 73446 EST. PATIENT, LEVEL IV Diagnosis: Moderate persistent asthma, uncomplicated[ICD10: J45.40] Diagnosis: Other mucopurulent conjunctivitis, left eye[ICD10: H10.022] Diagnosis: Acute laryngopharyngitis[ICD10: J06.0] Leisa Keys MD, [facility] CPT- 4: 37894 02/13/2017 98918 EST. PATIENT, LEVEL IV Diagnosis: Acute laryngopharyngitis[ICD10: J06.0] Diagnosis: Other acute sinusitis[ICD10: J01.80] Diagnosis: Other allergic rhinitis[ICD10: J30.89] Leisa Keys MD, [facility] CPT- 4: 11976 02/09/2017 27716 EST. PATIENT, LEVEL III Diagnosis: Other allergic rhinitis[ICD10: J30.89] Diagnosis: Moderate persistent asthma, uncomplicated[ICD10: J45.40] Leisa Keys MD, [facility] CPT-4: 07948 12/14/2016 01113 EST. PATIENT, LEVEL III Diagnosis: Other acute sinusitis[ICD10: J01.80] Diagnosis: Other allergic rhinitis[ICD10: J30.89] Diagnosis: Moderate persistent asthma, uncomplicated[ICD10: J45.40] Diagnosis: Gastro-esophageal reflux disease without esophagitis[ICD10: K21.9] Leisa Keys MD, [facility] CPT-4: 80602 12/05/2016 38933 EST. PATIENT, LEVEL IV Diagnosis: Other allergic rhinitis[ICD10: J30.89] Diagnosis: Moderate persistent asthma, uncomplicated[ICD10: J45.40] Diagnosis: Cough[ICD10: R05] Leisa Keys MD, [facility] CPT-4: 13388 09/23/2016 68704 EST. PATIENT, LEVEL IV Diagnosis: Moderate persistent asthma, uncomplicated[ICD10: J45.40] Diagnosis: Other allergic rhinitis[ICD10: J30.89] Leisa Keys MD, [facility] CPT- 4: 09171 09/14/2016 46255 EST. PATIENT, LEVEL IV Diagnosis: Other acute sinusitis[ICD10: J01.80] Leisa Keys MD, [facility] CPT- 4: 76181 07/08/2016 (04012) PREV VISIT NEW AGE 40-64 Diagnosis: Encounter for gynecological examination (general) (routine) without abnormal findings[ICD10: Z01.419] Diagnosis: Moderate persistent asthma, uncomplicated[ICD10: J45.40] Diagnosis: Essential (primary) hypertension[ICD10: I10] Diagnosis: Mixed hyperlipidemia[ICD10: E78.2] Leisa Keys MD, [facility] CPT-4: 02018 06/17/2016 Plan of Care Planned Activity Notes Codes Status Date Visit Plan: Diverticulitis - rx for antibiotic sent to pt's pharmacy - pt advised to avoid seeds, nuts, popcorn, or any other food which has been proven to upset the pt's stomach. 05/04/2017 Patient Education: Patient Medication Summary Completed [...] allergy spray. 04/21/2017 [phone] [facility] ([facility] min) Moderate 04/21/2017 Patient Education: [...] acute changes. 03/03/2017 Appointment: [facility] [phone] [facility] (30 min) Complex 03/03/2017 Patient Education: [...] daily. 02/13/2017 Appointment: [facility] [phone] [facility] (10 min) Simple 02/13/2017 Patient Education: [...] spray. 02/09/2017 Appointment: [phone] [facility] (15 min) Moderate 02/09/2017 Patient Education: [...] spray. 12/14/2016 Appointment: Leisa Kirkpatrick WPtel: [phone] (15 min) Moderate 12/14/2016 Patient Education: Patient [...] not improving. 12/05/2016 Appointment: Leisa Kirkpatrick WPtel: [facility] [place] [phone] (30 min) Complex 12/05/2016 Patient Education: Patient [...] acute changes. 09/23/2016 Appointment: Lisseth Greene WPtel: [address] [place], [place] [phone] (30 min) [facility] 09/23/2016 Patient Education: Patient Medication Summary [...] not show improvement.Allergies/asthma - pt sees an coding and reimbursement specialist who recently started her on Qvar and dexilant. They are referring her to pulmonology (Dr. Mcconnell) - pt is to notify clinic with any questions or concerns. 07/08/2016 Appointment: Lisseth Greene WPtel: [phone] [phone] (15 min) Moderate 07/08/2016 Patient Education: Patient [...] to medications. 06/17/2016 Appointment: Lisseth Greene WPtel: [phone] New Patient 06/17/2016 Patient Education: Patient Medication [...] show improvement. Allergies/asthma - pt sees an coding and reimbursement specialist who recently started her on Qvar [...]
--- OUTSIDE RECORDS SUMMARY | 2019-03-30 10:15 | XMS REPORT | CCD ---
Author Author Leisa Kirkpatrick MD, [facility] Address [address] [place] [address] Phone Care Team Providers Care Benzene Still Utility Operator Name Role Phone PP Unavailable CCM Unavailable Summary Purpose Interface Exchange Insurance Providers Payer name Policy type / Coverage type Covered green party ID Effective Begin Date Effective End Date [facility] [id number] 2015 Unknown Family history Father Diagnosis Age At Onset Heart Attack Unknown genetic disease Unknown Skin cancer Unknown Hypertension Unknown Mother Diagnosis Age At Onset Stroke Unknown Daughter Diagnosis Age At Onset Asthma Unknown Arthritis Unknown Social History Social History Element Codes Description Effective Dates Marital status Unknown omar 06/17/2016 Number of children Unknown 2 06/17/[address]: 847656078 Never smoker 06/17/2016 Alcohol history Unknown occasionally drinks alcohol 06/17/2016 Allergies, Adverse Reactions, Alerts Allergies, Adverse Reactions, Alerts data not found Past Medical History Illness Codes Condition Status Onset Date Resolved Date Moderate persistent asthma with (acute) exacerbation ICD-9: [...] Problems Condition Codes Effective Dates Condition Status Moderate persistent asthma with (acute) exacerbation ICD-9: [...] Start Date Stop Date Status Fill Instructions Zantac 150 mg tablet RxNorm: 008868 1 Tablet(s) PO BID 04/27/2017 08/24/2017 Active levocetirizine 5 mg tablet RxNorm: 336064 1 Tablet(s) PO daily 04/21/2017 05/20/2017 Active prednisone 20 mg tablet RxNorm: 967542 2 Tablet(s) PO BID start if getting worse 04/21/2017 04/25/2017 Inactive prednisone 20 mg tablet RxNorm: 751004 1 Tablet(s) PO BID Start with 1 pill daily and see how effective it is - if still not effective increase to twice a day as discussed 03/03/2017 03/07/2017 Inactive lisinopril 10 mg tablet RxNorm: 057897 1 Tablet(s) PO daily 03/01/2017 08/27/2017 Active ciprofloxacin 0.3 % eye drops RxNorm: 565009 2 Drop(s) OPH QID 02/13/2017 02/17/2017 Inactive Zithromax 250 mg tablet RxNorm: 199343 1 Tablet(s) PO daily 02/13/2017 02/15/2017 Inactive Zithromax Z-Maykel 250 mg tablet RxNorm: 640856 1 Tablet(s) PO UD 02/09/2017 No Stop Date Active Zithromax Z-Maykel 250 mg tablet RxNorm: 682621 1 Tablet(s) PO UD 02/09/2017 02/08/2017 Inactive Premarin 0.625 mg/gram vaginal cream RxNorm: 625163 1 Application VAG BIW 12/30/2016 No Stop Date Active Zantac 150 mg tablet RxNorm: 215863 1 Tablet(s) PO BID 12/05/2016 04/03/2017 Inactive prednisone 20 mg tablet RxNorm: 248536 2 Tablet(s) PO daily 12/05/2016 12/09/2016 Inactive Zithromax Z-Maykel 250 mg tablet RxNorm: 693824 Tablet(s) PO UD 12/05/2016 02/08/2017 Inactive lisinopril 10 mg tablet RxNorm: 609126 1 Tablet(s) PO daily 10/31/2016 02/27/2017 Inactive Tessalon Perles 100 mg capsule RxNorm: 139756 2 Capsule(s) PO TID as needed dyspnea 09/23/2016 09/27/2016 Inactive prednisone 20 mg tablet RxNorm: 752595 2 Tablet(s) PO daily 09/23/2016 09/27/2016 Inactive Qvar 80 mcg/actuation Metered Aerosol oral inhaler RxNorm: 294454 1 INH BID started by her fireworks display specialist 08/02/2016 09/12/2016 Inactive Zithromax Z-Maykel 250 mg tablet RxNorm: 007565 Tablet(s) PO UD 07/08/2016 12/04/2016 Inactive Tessalon Perles 100 mg capsule RxNorm: 380398 2 Capsule(s) PO TID as needed dyspnea 07/08/2016 07/12/2016 Inactive prednisone 20 mg tablet RxNorm: 994372 1 Tablet(s) PO UD 07/08/2016 09/22/2016 Inactive Premarin 0.625 mg/gram vaginal cream RxNorm: 024042 1 Application VAG BIW 06/21/2016 12/29/2016 Inactive Dulera 200 mcg-5 mcg/actuation HFA aerosol inhaler RxNorm: 6410877 2 INH Q2H 06/17/2016 No Stop Date Active lisinopril 10 mg tablet RxNorm: 993306 1 Tablet(s) PO daily 06/17/2016 10/14/2016 Inactive olopatadine 0.1 % eye drops RxNorm: 3325216 Drop(s) OPH PRN No Start Date Active ProAir HFA 90 mcg/actuation aerosol inhaler RxNorm: 198874 2 Puff(s) INH PRN No Start Date Active Zyrtec 10 mg capsule RxNorm: 2602957 1 Capsule(s) PO daily No Start Date Active lutein 20 mg capsule RxNorm: 653190 1 Capsule(s) PO daily No Start Date Active Organ Oil 1,000 mg capsule RxNorm: 1 Capsule(s) PO daily No Start Date Active montelukast 10 mg tablet RxNorm: 665281 1 Tablet(s) PO daily No Start Date Active Vitamin D3 1,000 unit capsule RxNorm: 057546 Capsule(s) PO No Start Date Active B12 sublingual RxNorm: 69295 sublingual No Start Date Active pravastatin 20 mg tablet RxNorm: 671674 1 Tablet(s) PO daily No Start Date Active zinc picolinate 50 mg tablet RxNorm: 1 Tablet(s) PO daily No Start Date Active chromium picolinate 200 mcg capsule RxNorm: 536820 1 Capsule(s) PO daily No Start Date Active magnesium RxNorm: 1 PO BID No Start Date Active premarin 0.5% Vaginal cream RxNorm: 1 VAG daily No Start Date Active Xolair 150 mg subcutaneous solution RxNorm: 1323354 1 SQ monthly No Start Date Active folate #7-pc dha-pe aen-KGHC-qrupeh-IF-multivitamin #46 oral RxNorm: oral No Start Date Active prednisone RxNorm: 8640 miscellaneous No Start Date Active Dulera 200 mcg-5 mcg/actuation HFA aerosol inhaler RxNorm: 3256082 2 INH Q4H No Start Date 06/16/2016 Inactive lisinopril 10 mg tablet RxNorm: 208392 1 Tablet(s) PO daily No Start Date 06/16/2016 Inactive Medication Administered No Medication Administered data Immunizations No Immunization data Assessments Condition Codes Effective Dates Moderate persistent asthma with (acute) exacerbation ICD-10: [...] Reason For Visit Effective Dates Notes cough 04/21/2017 cough 03/03/2017 cough 02/13/2017 sinus congestion 02/09/2017 cough 12/14/2016 sinus congestion 12/05/2016 cough 09/23/2016 nasal allergies 09/14/2016 sinus congestion 07/08/2016 well woman exam (40-65 years) 06/17/2016 Results Observation Observation Code Item Item Code Result Date C RAP A SC [id number] Strep A TNP:Lab Request 02/09/2017 C RAP A SC [id number] IC OK? TNP:Lab Request 02/09/2017 Review of Systems System Result Effective Dates Constitutional recent illness 04/21/2017 Constitutional No chills [...] No Procedures data Vital Signs Date Vital 04/21/2017 Blood Pressure 1: 130/72 Code: 8480-6 BMI: 29.9 Code: 47471-3 Heart Rate 1: 90 bpm Height: 5'4" SpO2: 96% Weight: 174 lbs 03/03/2017 Blood Pressure 1: 136/78 Code: 8480-6 BMI: 29.9 Code: 31775-1 Heart Rate 1: 91 bpm Height: 5'4" SpO2: 96% Weight: 174 lbs 02/13/2017 Blood Pressure 1: 116/74 Code: 8480-6 BMI: 29.2 Code: 29560-2 Heart Rate 1: 91 bpm Height: 5'4" SpO2: 94% Weight: 170 lbs 02/09/2017 Blood Pressure 1: 120/72 Code: 8480-6 BMI: 29.0 Code: 73896-2 Heart Rate 1: 100 bpm Height: 5'4" SpO2: 97% Temperature: 37.4 (C) / 99.3 (F) Weight: 169 lbs 12/14/2016 Blood Pressure 1: 130/72 Code: 8480-6 BMI: 29.5 Code: 22702-5 Heart Rate 1: 100 bpm Height: 5'4" SpO2: 95% Weight: 172 lbs 12/05/2016 Blood Pressure 1: 136/78 Code: 8480-6 BMI: 29.2 Code: 05193-5 Heart Rate 1: 117 bpm Height: 5'4" SpO2: 97% Weight: 170 lbs 09/23/2016 Blood Pressure 1: 130/74 Code: 8480-6 BMI: 30.2 Code: 66969-2 Heart Rate 1: 102 bpm Height: 5'4" SpO2: 94% Weight: 176 lbs 09/14/2016 Blood Pressure 1: 128/74 Code: 8480-6 BMI: 29.4 Code: 49244-8 Heart Rate 1: 90 bpm Height: 5'4" SpO2: 97% Weight: 171 lbs 07/08/2016 Blood Pressure 1: 118/64 Code: 8480-6 BMI: 28.8 Code: 22011-2 Heart Rate 1: 115 bpm Height: 5'4" SpO2: 97% Weight: 168 lbs 06/17/2016 Blood Pressure 1: 144/86 Code: 8480-6 BMI: 29.5 Code: 95443-8 Heart Rate 1: 94 bpm Height: 5'4" SpO2: 96% Weight: 172 lbs Functional Status No Functional Status data History of Present Illness Symptom Name Status Result Effective Date Notes cough Location in the throat 04/21/2017 None [...] data Encounters Encounter Performer Location Codes Date 11496 EST. PATIENT, LEVEL IV Diagnosis: Other allergic rhinitis[ICD10: J30.89] Diagnosis: Moderate persistent asthma with (acute) exacerbation[ICD10: J45.41] Leisa Keys MD, [facility] CPT-4: 41317 04/21/2017 42140 EST. PATIENT, LEVEL III Diagnosis: Moderate persistent asthma with (acute) exacerbation[ICD10: J45.41] Leisa Keys MD, [facility] CPT-4: 93758 03/03/2017 56117 EST. PATIENT, LEVEL IV Diagnosis: Moderate persistent asthma, uncomplicated[ICD10: J45.40] Diagnosis: Other mucopurulent conjunctivitis, left eye[ICD10: H10.022] Diagnosis: Acute laryngopharyngitis[ICD10: J06.0] Leisa Keys MD, [facility] CPT- 4: 21072 02/13/2017 24565 EST. PATIENT, LEVEL IV Diagnosis: Acute laryngopharyngitis[ICD10: J06.0] Diagnosis: Other acute sinusitis[ICD10: J01.80] Diagnosis: Other allergic rhinitis[ICD10: J30.89] Leisa Keys MD, [facility] CPT- 4: 45015 02/09/2017 21068 EST. PATIENT, LEVEL III Diagnosis: Other allergic rhinitis[ICD10: J30.89] Diagnosis: Moderate persistent asthma, uncomplicated[ICD10: J45.40] Leisa Keys MD, [facility] CPT-4: 12659 12/14/2016 28775 EST. PATIENT, LEVEL III Diagnosis: Other acute sinusitis[ICD10: J01.80] Diagnosis: Other allergic rhinitis[ICD10: J30.89] Diagnosis: Moderate persistent asthma, uncomplicated[ICD10: J45.40] Diagnosis: Gastro-esophageal reflux disease without esophagitis[ICD10: K21.9] Leisa Keys MD, [facility] CPT-4: 21113 12/05/2016 18218 EST. PATIENT, LEVEL IV Diagnosis: Other allergic rhinitis[ICD10: J30.89] Diagnosis: Moderate persistent asthma, uncomplicated[ICD10: J45.40] Diagnosis: Cough[ICD10: R05] Leisa Keys MD, [facility] CPT-4: 07036 09/23/2016 00974 EST. PATIENT, LEVEL IV Diagnosis: Moderate persistent asthma, uncomplicated[ICD10: J45.40] Diagnosis: Other allergic rhinitis[ICD10: J30.89] Leisa Keys MD, [facility] CPT- 4: 59300 09/14/2016 40020 EST. PATIENT, LEVEL IV Diagnosis: Other acute sinusitis[ICD10: J01.80] Leisa Keys MD, [facility] CPT- 4: 77290 07/08/2016 (37066) PREV VISIT NEW AGE 40-64 Diagnosis: Encounter for gynecological examination (general) (routine) without abnormal findings[ICD10: Z01.419] Diagnosis: Moderate persistent asthma, uncomplicated[ICD10: J45.40] Diagnosis: Essential (primary) hypertension[ICD10: I10] Diagnosis: Mixed hyperlipidemia[ICD10: E78.2] Leisa Keys MD, [facility] CPT-4: 67757 06/17/2016 Plan of Care Planned Activity Notes Codes Status Date Visit Plan: Asthma Exacerbation - Asthma is [...] spray. 04/21/2017 Appointment: [facility] Kirkpatrick [phone] [facility] (15 min) Moderate 04/21/2017 Patient Education: Patient [...] changes. 03/03/2017 Appointment: Le[facility] Kirkpatrick [facility]el: [phone] [facility] (30 min) Complex 03/03/2017 Patient Education: Patient [...] times daily. 02/13/2017 Appointment: Leisa Kirkpatrick WPtel: [address] [place], [place] [phone] (10 min) Simple 02/13/2017 Patient Education: Patient [...] allergy spray. 02/09/2017 Appointment: Leisa Kirkpatrick WPtel: [address] [place], [place] [phone] (15 min) Moderate 02/09/2017 Patient Education: Patient [...] allergy spray. 12/14/2016 Appointment: Leisa Kirkpatrick WPtel: [facility] [place] (15 min) Moderate 12/14/2016 Patient Education: Patient [...] not improving. 12/05/2016 Appointment: Leisa Kirkpatrick WPtel: [address] [place], [place] [address] (30 min) [facility] 12/05/2016 Patient Education: Patient Medication Summary Completed [...] changes. 09/23/2016 Appointment: Lisseth Greene WPtel: [phone] [phone] (30 min) Complex 09/23/2016 Patient Education: Patient [...] not show improvement.Allergies/asthma - pt sees an fireworks display specialist who recently started her on Qvar and dexilant. They are referring her to pulmonology (Dr. Mcconnell) - pt is to notify clinic with any questions or concerns. 07/08/2016 Appointment: Lisseth Greene WPtel: [phone] [phone] (15 min) Moderate 07/08/2016 Patient Education: Patient [...] to medications. 06/17/2016 Appointment: Lisseth Greene WPtel: [phone] New Patient 06/17/2016 Patient Education: Patient Medication [...] show improvement. Allergies/asthma - pt sees an fireworks display specialist who recently started her on Qvar [...]
--- OUTSIDE RECORDS SUMMARY | 2019-03-30 10:16 | XMS REPORT | CCD ---
Author Author Leisa Kirkpatrick MD, [facility] Address [address] [place] [address] Phone Care Team Providers Care Director Of Search Engine Marketing Name Role Phone PP Unavailable CCM Unavailable Summary Purpose Interface Exchange Insurance Providers Payer name Policy type / Coverage type Covered green party ID Effective Begin Date Effective End Date [facility] [id number] 2015 Unknown Family history Father Diagnosis Age At Onset Heart Attack Unknown genetic disease Unknown Skin cancer Unknown Hypertension Unknown Mother Diagnosis Age At Onset Stroke Unknown Daughter Diagnosis Age At Onset Asthma Unknown Arthritis Unknown Social History Social History Element Codes Description Effective Dates Marital status Unknown omar 06/17/2016 Number of children Unknown 2 06/17/[address]: 273803375 Never smoker 06/17/2016 Alcohol history Unknown occasionally [...] Date Stop Date Status Fill Instructions prednisone 20 mg tablet RxNorm: 973425 2 Tablet(s) PO BID start if getting worse 04/21/2017 04/25/2017 Active levocetirizine 5 mg tablet RxNorm: 026931 1 Tablet(s) PO daily 04/21/2017 05/20/2017 Active prednisone 20 mg tablet RxNorm: 359204 1 Tablet(s) PO BID Start with 1 pill daily and see how effective it is - if still not effective increase to twice a day as discussed 03/03/2017 03/07/2017 Inactive lisinopril 10 mg tablet RxNorm: 537191 1 Tablet(s) PO daily 03/01/2017 08/27/2017 Active ciprofloxacin 0.3 % eye drops RxNorm: 878742 2 Drop(s) OPH QID 02/13/2017 02/17/2017 Inactive Zithromax 250 mg tablet RxNorm: 599447 1 Tablet(s) PO daily 02/13/2017 02/15/2017 Inactive Zithromax Z-Maykel 250 mg tablet RxNorm: 176709 1 Tablet(s) PO UD 02/09/2017 No Stop Date Active Zithromax Z-Maykel 250 mg tablet RxNorm: 158864 1 Tablet(s) PO UD 02/09/2017 02/08/2017 Inactive Premarin 0.625 mg/gram vaginal cream RxNorm: 170657 1 Application VAG BIW 12/30/2016 No Stop Date Active Zantac 150 mg tablet RxNorm: 011838 1 Tablet(s) PO BID 12/05/2016 04/03/2017 Inactive prednisone 20 mg tablet RxNorm: 141298 2 Tablet(s) PO daily 12/05/2016 12/09/2016 Inactive Zithromax Z-Amykel 250 mg tablet RxNorm: 615834 Tablet(s) PO UD 12/05/2016 02/08/2017 Inactive lisinopril 10 mg tablet RxNorm: 613793 1 Tablet(s) PO daily 10/31/2016 02/27/2017 Inactive Tessalon Perles 100 mg capsule RxNorm: 528527 2 Capsule(s) PO TID as needed dyspnea 09/23/2016 09/27/2016 Inactive prednisone 20 mg tablet RxNorm: 791454 2 Tablet(s) PO daily 09/23/2016 09/27/2016 Inactive Qvar 80 mcg/actuation Metered Aerosol oral inhaler RxNorm: 950972 1 INH BID started by her heart specialist 08/02/2016 09/12/2016 Inactive Zithromax Z-Maykel 250 mg tablet RxNorm: 765793 Tablet(s) PO UD 07/08/2016 12/04/2016 Inactive Tessalon Perles 100 mg capsule RxNorm: 102685 2 Capsule(s) PO TID as needed dyspnea 07/08/2016 07/12/2016 Inactive prednisone 20 mg tablet RxNorm: 762939 1 Tablet(s) PO UD 07/08/2016 09/22/2016 Inactive Premarin 0.625 mg/gram vaginal cream RxNorm: 833209 1 Application VAG BIW 06/21/2016 12/29/2016 Inactive Dulera 200 mcg-5 mcg/actuation HFA aerosol inhaler RxNorm: 9213944 2 INH Q2H 06/17/2016 No Stop Date Active lisinopril 10 mg tablet RxNorm: 589560 1 Tablet(s) PO daily 06/17/2016 10/14/2016 Inactive olopatadine 0.1 % eye drops RxNorm: 5870191 Drop(s) OPH PRN No Start Date Active ProAir HFA 90 mcg/actuation aerosol inhaler RxNorm: 988114 2 Puff(s) INH PRN No Start Date Active Zyrtec 10 mg capsule RxNorm: 5734473 1 Capsule(s) PO daily No Start Date Active lutein 20 mg capsule RxNorm: 442809 1 Capsule(s) PO daily No Start Date Active [place] Oil 1,000 mg capsule RxNorm: 1 Capsule(s) PO daily No Start Date Active montelukast 10 mg tablet RxNorm: 007811 1 Tablet(s) PO daily No Start Date Active Vitamin D3 1,000 unit capsule RxNorm: 062490 Capsule(s) PO No Start Date Active B12 sublingual RxNorm: 39357 sublingual No Start Date Active pravastatin 20 mg tablet RxNorm: 070908 1 Tablet(s) PO daily No Start Date Active zinc picolinate 50 mg tablet RxNorm: 1 Tablet(s) PO daily No Start Date Active chromium picolinate 200 mcg capsule RxNorm: 407397 1 Capsule(s) PO daily No Start Date Active magnesium RxNorm: 1 PO BID No Start Date Active premarin 0.5% Vaginal cream RxNorm: 1 VAG daily No Start Date Active Xolair 150 mg subcutaneous solution RxNorm: 8974112 1 SQ monthly No Start Date Active folate #7-pc dha-pe hcw-VVUP-gigcsi-IF-multivitamin #46 oral RxNorm: oral No Start Date Active prednisone RxNorm: 8640 miscellaneous No Start Date Active Dulera 200 mcg-5 mcg/actuation HFA aerosol inhaler RxNorm: 4405976 2 INH Q4H No Start Date 06/16/2016 Inactive lisinopril 10 mg tablet RxNorm: 978288 1 Tablet(s) PO daily No Start Date [...] Code Result Date C RAP A SC [id number] Strep A TNP:Lab Request 02/09/2017 Marlene Sandoval [place] [id number] IC OK? TNP:Lab Request 02/09/2017 Review of [...] 1: 130/72 Code: 8480-6 BMI: 29.9 Code: 99648-2 Heart Rate 1: 90 bpm Height: 5'4" SpO2: 96% Weight: 174 lbs 03/03/2017 Blood Pressure 1: 136/78 Code: 8480-6 BMI: 29.9 Code: 56935-4 Heart Rate 1: 91 bpm Height: 5'4" SpO2: 96% Weight: 174 lbs 02/13/2017 Blood Pressure 1: 116/74 Code: 8480-6 BMI: 29.2 Code: 01965-9 Heart Rate 1: 91 bpm Height: 5'4" SpO2: 94% Weight: 170 lbs 02/09/2017 Blood Pressure 1: 120/72 Code: 8480-6 BMI: 29.0 Code: 49490-2 Heart Rate 1: 100 bpm Height: 5'4" SpO2: 97% Temperature: 37.4 (C) / 99.3 (F) Weight: 169 lbs 12/14/2016 Blood Pressure 1: 130/72 Code: 8480-6 BMI: 29.5 Code: 12053-3 Heart Rate 1: 100 bpm Height: 5'4" SpO2: 95% Weight: 172 lbs 12/05/2016 Blood Pressure 1: 136/78 Code: 8480-6 BMI: 29.2 Code: 64881-7 Heart Rate 1: 117 bpm Height: 5'4" SpO2: 97% Weight: 170 lbs 09/23/2016 Blood Pressure 1: 130/74 Code: 8480-6 BMI: 30.2 Code: 22272-5 Heart Rate 1: 102 bpm Height: 5'4" SpO2: 94% Weight: 176 lbs 09/14/2016 Blood Pressure 1: 128/74 Code: 8480-6 BMI: 29.4 Code: 57071-1 Heart Rate 1: 90 bpm Height: 5'4" SpO2: 97% Weight: 171 lbs 07/08/2016 Blood Pressure 1: 118/64 Code: 8480-6 BMI: 28.8 Code: 32398-6 Heart Rate 1: 115 bpm Height: 5'4" SpO2: 97% Weight: 168 lbs 06/17/2016 Blood Pressure 1: 144/86 Code: 8480-6 BMI: 29.5 Code: 61261-2 Heart Rate 1: 94 bpm Height: 5'4" [...] Codes Date EST. PATIENT, LEVEL IV Diagnosis: Other allergic rhinitis[ICD10: J30.89] Diagnosis: Moderate persistent asthma with (acute) exacerbation[ICD10: J45.41] Leisa Keys MD, [facility] CPT-4: 92863 04/21/2017 35554 EST. PATIENT, LEVEL III Diagnosis: Moderate persistent asthma with (acute) exacerbation[ICD10: J45.41] Leisa Keys MD, [facility] CPT-4: 45423 03/03/2017 48113 EST. PATIENT, LEVEL IV Diagnosis: Moderate persistent asthma, uncomplicated[ICD10: J45.40] Diagnosis: Other mucopurulent conjunctivitis, left eye[ICD10: H10.022] Diagnosis: Acute laryngopharyngitis[ICD10: J06.0] Leisa Keys MD, [facility] CPT- 4: 22852 02/13/2017 89509 EST. PATIENT, LEVEL IV Diagnosis: Acute laryngopharyngitis[ICD10: J06.0] Diagnosis: Other acute sinusitis[ICD10: J01.80] Diagnosis: Other allergic rhinitis[ICD10: J30.89] Leisa Keys MD, [facility] CPT- 4: 55176 02/09/2017 89921 EST. PATIENT, LEVEL III Diagnosis: Other allergic rhinitis[ICD10: J30.89] Diagnosis: Moderate persistent asthma, uncomplicated[ICD10: J45.40] Leisa Keys MD, [facility] CPT-4: 56780 12/14/2016 70941 EST. PATIENT, LEVEL III Diagnosis: Other acute sinusitis[ICD10: J01.80] Diagnosis: Other allergic rhinitis[ICD10: J30.89] Diagnosis: Moderate persistent asthma, uncomplicated[ICD10: J45.40] Diagnosis: Gastro-esophageal reflux disease without esophagitis[ICD10: K21.9] Leisa Keys MD, [facility] CPT-4: 46504 12/05/2016 52755 EST. PATIENT, LEVEL IV Diagnosis: Other allergic rhinitis[ICD10: J30.89] Diagnosis: Moderate persistent asthma, uncomplicated[ICD10: J45.40] Diagnosis: Cough[ICD10: R05] [facility] CPT-4: 68992 09/23/2016 28019 EST. PATIENT, LEVEL IV Diagnosis: Moderate persistent asthma, uncomplicated[ICD10: J45.40] Diagnosis: Other allergic rhinitis[ICD10: J30.89] Leisa Keys MD, [facility] CPT- 4: 99323 09/14/2016 75965 EST. PATIENT, LEVEL IV Diagnosis: Other acute sinusitis[ICD10: J01.80] Leisa Keys MD, [facility] CPT- 4: 78415 07/08/2016 (53719) PREV VISIT NEW AGE 40-64 Diagnosis: Encounter for gynecological examination (general) (routine) without abnormal findings[ICD10: Z01.419] Diagnosis: Moderate persistent asthma, uncomplicated[ICD10: J45.40] Diagnosis: Essential (primary) hypertension[ICD10: I10] Diagnosis: Mixed hyperlipidemia[ICD10: E78.2] Leisa Keys MD, [facility] CPT-4: 54940 06/17/2016 Plan of Care Planned Activity Notes [...] spray. 04/21/2017 Appointment: [facility] Kirkpatrick [facility] [phone] [facility] (15 min) Moderate 04/21/2017 Patient Education: Patient [...] changes. 03/03/2017 Appointment: Leisa Kirkpatrick [facility]Ptel: [phone] [facility] (30 min) Complex 03/03/2017 Patient Education: Patient [...] daily. 02/13/2017 Appointment: Leisa Kirkpatrick WPtel: [phone] [facility] [place] (10 min) Simple 02/13/2017 Patient Education: [...] allergy spray. 02/09/2017 Appointment: Leisa Kirkpatrick WPtel: [facility] (15 min) Moderate 02/09/2017 Patient Education: Patient [...] spray. 12/14/2016 Appointment: Leisa Kirkpatrick [facility]Ptel: [phone] [facility] (15 min) Moderate 12/14/2016 Patient Education: Patient [...] not improving. 12/05/2016 Appointment: Leisa Kirkpatrick WPtel: [address] [place], [place] [address] (30 min) [facility] 12/05/2016 Patient Education: Patient Medication Summary Completed [...] changes. 09/23/2016 Appointment: Lisseth Greene WPtel: [phone] [phone] (30 min) Complex 09/23/2016 Patient Education: Patient [...] not show improvement.Allergies/asthma - pt sees an heart specialist who recently started her on Qvar and dexilant. They are referring her to pulmonology (Dr. Mcconnell) - pt is to notify clinic with any questions or concerns. 07/08/2016 Appointment: Lisseth Greene WPtel: [phone] [phone] [place] (15 min) Moderate 07/08/2016 Patient Education: Patient [...] to medications. 06/17/2016 Appointment: Lisseth Greene [facility]Ptel[facility] [phone] [phone] New Patient 06/17/2016 Patient Education: Patient Medication [...] show improvement. Allergies/asthma - pt sees an heart specialist who recently started her on Qvar [...]
--- OUTSIDE RECORDS SUMMARY | 2019-03-30 10:17 | XMS REPORT | CCD ---
Author Author Leisa Kirkpatrick MD, [facility] Address [address] [place] [address] Phone Care Team Providers Care Wind Tunnel Engineer Name Role Phone PP Unavailable CCM Unavailable Summary Purpose Interface Exchange Insurance Providers Payer name Policy type / Coverage type Covered democrat ID Effective Begin Date Effective End Date [facility] [id number] 2015 Unknown Family history Father Diagnosis Age At Onset Heart Attack Unknown genetic disease Unknown Skin cancer Unknown Hypertension Unknown Mother Diagnosis Age At Onset Stroke Unknown Daughter Diagnosis Age At Onset Asthma Unknown Arthritis Unknown Social History Social History Element Codes Description Effective Dates Marital status Unknown omar 06/17/2016 Number of children Unknown 2 06/17/[address]: 684562435 Never smoker 06/17/2016 Alcohol history Unknown occasionally [...] Fill Instructions prednisone 20 mg tablet RxNorm: 567430 2 Tablet(s) PO BID start if getting worse 04/21/2017 04/25/2017 Active levocetirizine 5 mg tablet RxNorm: 293806 1 Tablet(s) PO daily 04/21/2017 05/20/2017 Active prednisone 20 mg tablet RxNorm: 086489 1 Tablet(s) PO BID Start with 1 pill daily and see how effective it is - if still not effective increase to twice a day as discussed 03/03/2017 03/07/2017 Inactive lisinopril 10 mg tablet RxNorm: 362106 1 Tablet(s) PO daily 03/01/2017 08/27/2017 Active ciprofloxacin 0.3 % eye drops RxNorm: 413174 2 Drop(s) OPH QID 02/13/2017 02/17/2017 Inactive Zithromax 250 mg tablet RxNorm: 249502 1 Tablet(s) PO daily 02/13/2017 02/15/2017 Inactive Zithromax Z-Maykel 250 mg tablet RxNorm: 551840 1 Tablet(s) PO UD 02/09/2017 No Stop Date Active Zithromax Z-Maykel 250 mg tablet RxNorm: 934231 1 Tablet(s) PO UD 02/09/2017 02/08/2017 Inactive Premarin 0.625 mg/gram vaginal cream RxNorm: 022243 1 Application VAG BIW 12/30/2016 No Stop Date Active Zantac 150 mg tablet RxNorm: 864536 1 Tablet(s) PO BID 12/05/2016 04/03/2017 Inactive prednisone 20 mg tablet RxNorm: 602211 2 Tablet(s) PO daily 12/05/2016 12/09/2016 Inactive Zithromax Z-Maykel 250 mg tablet RxNorm: 483631 Tablet(s) PO UD 12/05/2016 02/08/2017 Inactive lisinopril 10 mg tablet RxNorm: 700437 1 Tablet(s) PO daily 10/31/2016 02/27/2017 Inactive Tessalon Perles 100 mg capsule RxNorm: 969560 2 Capsule(s) PO TID as needed dyspnea 09/23/2016 09/27/2016 Inactive prednisone 20 mg tablet RxNorm: 187227 2 Tablet(s) PO daily 09/23/2016 09/27/2016 Inactive Qvar 80 mcg/actuation Metered Aerosol oral inhaler RxNorm: 758457 1 INH BID started by her electrical system specialist 08/02/2016 09/12/2016 Inactive Zithromax Z-Maykel 250 mg tablet RxNorm: 652906 Tablet(s) PO UD 07/08/2016 12/04/2016 Inactive Tessalon Perles 100 mg capsule RxNorm: 982972 2 Capsule(s) PO TID as needed dyspnea 07/08/2016 07/12/2016 Inactive prednisone 20 mg tablet RxNorm: 772081 1 Tablet(s) PO UD 07/08/2016 09/22/2016 Inactive Premarin 0.625 mg/gram vaginal cream RxNorm: 076324 1 Application VAG BIW 06/21/2016 12/29/2016 Inactive Dulera 200 mcg-5 mcg/actuation HFA aerosol inhaler RxNorm: 5139682 2 INH Q2H 06/17/2016 No Stop Date Active lisinopril 10 mg tablet RxNorm: 404439 1 Tablet(s) PO daily 06/17/2016 10/14/2016 Inactive olopatadine 0.1 % eye drops RxNorm: 7981511 Drop(s) OPH PRN No Start Date Active ProAir HFA 90 mcg/actuation aerosol inhaler RxNorm: 787761 2 Puff(s) INH PRN No Start Date Active Zyrtec 10 mg capsule RxNorm: 9138966 1 Capsule(s) PO daily No Start Date Active lutein 20 mg capsule RxNorm: 937478 1 Capsule(s) PO daily No Start Date Active [place] Oil 1,000 mg capsule RxNorm: 1 Capsule(s) PO daily No Start Date Active montelukast 10 mg tablet RxNorm: 433125 1 Tablet(s) PO daily No Start Date Active Vitamin D3 1,000 unit capsule RxNorm: 109152 Capsule(s) PO No Start Date Active B12 sublingual RxNorm: 46306 sublingual No Start Date Active pravastatin 20 mg tablet RxNorm: 866073 1 Tablet(s) PO daily No Start Date Active zinc picolinate 50 mg tablet RxNorm: 1 Tablet(s) PO daily No Start Date Active chromium picolinate 200 mcg capsule RxNorm: 288614 1 Capsule(s) PO daily No Start Date Active magnesium RxNorm: 1 PO BID No Start Date Active premarin 0.5% Vaginal cream RxNorm: 1 VAG daily No Start Date Active Xolair 150 mg subcutaneous solution RxNorm: 3327663 1 SQ monthly No Start Date Active folate #7-pc dha-pe yav-CFAL-diwpeu-IF-multivitamin #46 oral RxNorm: oral No Start Date Active prednisone RxNorm: 8640 miscellaneous No Start Date Active Dulera 200 mcg-5 mcg/actuation HFA aerosol inhaler RxNorm: 8596556 2 INH Q4H No Start Date 06/16/2016 Inactive lisinopril 10 mg tablet RxNorm: 484568 1 Tablet(s) PO daily No Start Date [...] Code Result Date C RAP A SC [id number] Strep A TNP:Lab Request 02/09/2017 Marlene Sandoval CO [id number] IC OK? TNP:Lab Request 02/09/2017 Review of [...] 1: 130/72 Code: 8480-6 BMI: 29.9 Code: 96666-4 Heart Rate 1: 90 bpm Height: 5'4" SpO2: 96% Weight: 174 lbs 03/03/2017 Blood Pressure 1: 136/78 Code: 8480-6 BMI: 29.9 Code: 20716-2 Heart Rate 1: 91 bpm Height: 5'4" SpO2: 96% Weight: 174 lbs 02/13/2017 Blood Pressure 1: 116/74 Code: 8480-6 BMI: 29.2 Code: 85343-7 Heart Rate 1: 91 bpm Height: 5'4" SpO2: 94% Weight: 170 lbs 02/09/2017 Blood Pressure 1: 120/72 Code: 8480-6 BMI: 29.0 Code: 45869-5 Heart Rate 1: 100 bpm Height: 5'4" SpO2: 97% Temperature: 37.4 (C) / 99.3 (F) Weight: 169 lbs 12/14/2016 Blood Pressure 1: 130/72 Code: 8480-6 BMI: 29.5 Code: 34109-8 Heart Rate 1: 100 bpm Height: 5'4" SpO2: 95% Weight: 172 lbs 12/05/2016 Blood Pressure 1: 136/78 Code: 8480-6 BMI: 29.2 Code: 29144-7 Heart Rate 1: 117 bpm Height: 5'4" SpO2: 97% Weight: 170 lbs 09/23/2016 Blood Pressure 1: 130/74 Code: 8480-6 BMI: 30.2 Code: 07396-7 Heart Rate 1: 102 bpm Height: 5'4" SpO2: 94% Weight: 176 lbs 09/14/2016 Blood Pressure 1: 128/74 Code: 8480-6 BMI: 29.4 Code: 11997-9 Heart Rate 1: 90 bpm Height: 5'4" SpO2: 97% Weight: 171 lbs 07/08/2016 Blood Pressure 1: 118/64 Code: 8480-6 BMI: 28.8 Code: 99441-7 Heart Rate 1: 115 bpm Height: 5'4" SpO2: 97% Weight: 168 lbs 06/17/2016 Blood Pressure 1: 144/86 Code: 8480-6 BMI: 29.5 Code: 24638-2 Heart Rate 1: 94 bpm Height: 5'4" [...] with (acute) exacerbation[ICD10: J45.41] Leisa Keys MD, [facility] CPT-4: 97521 04/21/2017 13373 EST. PATIENT, LEVEL III Diagnosis: Moderate persistent asthma with (acute) exacerbation[ICD10: J45.41] Leisa Keys MD, [facility] CPT-4: 63757 03/03/2017 86800 EST. PATIENT, LEVEL IV Diagnosis: Moderate persistent asthma, uncomplicated[ICD10: J45.40] Diagnosis: Other mucopurulent conjunctivitis, left eye[ICD10: H10.022] Diagnosis: Acute laryngopharyngitis[ICD10: J06.0] Leisa Keys MD, [facility] CPT- 4: 87167 02/13/2017 33939 EST. PATIENT, LEVEL IV Diagnosis: Acute laryngopharyngitis[ICD10: J06.0] Diagnosis: Other acute sinusitis[ICD10: J01.80] Diagnosis: Other allergic rhinitis[ICD10: J30.89] Leisa Keys MD, [facility] CPT- 4: 20652 02/09/2017 46712 EST. PATIENT, LEVEL III Diagnosis: Other allergic rhinitis[ICD10: J30.89] Diagnosis: Moderate persistent asthma, uncomplicated[ICD10: J45.40] Leisa Keys MD, [facility] CPT-4: 30128 12/14/2016 18656 EST. PATIENT, LEVEL III Diagnosis: Other acute sinusitis[ICD10: J01.80] Diagnosis: Other allergic rhinitis[ICD10: J30.89] Diagnosis: Moderate persistent asthma, uncomplicated[ICD10: J45.40] Diagnosis: Gastro-esophageal reflux disease without esophagitis[ICD10: K21.9] Leisa Keys MD, [facility] CPT-4: 30899 12/05/2016 92620 EST. PATIENT, LEVEL IV Diagnosis: Other allergic rhinitis[ICD10: J30.89] Diagnosis: Moderate persistent asthma, uncomplicated[ICD10: J45.40] Diagnosis: Cough[ICD10: R05] [facility] CPT-4: 36914 09/23/2016 44706 EST. PATIENT, LEVEL IV Diagnosis: Moderate persistent asthma, uncomplicated[ICD10: J45.40] Diagnosis: Other allergic rhinitis[ICD10: J30.89] Leisa Keys MD, [facility] CPT- 4: 18392 09/14/2016 71762 EST. PATIENT, LEVEL IV Diagnosis: Other acute sinusitis[ICD10: J01.80] Leisa Keys MD, [facility] CPT- 4: 27057 07/08/2016 (66997) PREV VISIT NEW AGE 40-64 Diagnosis: Encounter for gynecological examination (general) (routine) without abnormal findings[ICD10: Z01.419] Diagnosis: Moderate persistent asthma, uncomplicated[ICD10: J45.40] Diagnosis: Essential (primary) hypertension[ICD10: I10] Diagnosis: Mixed hyperlipidemia[ICD10: E78.2] Leisa Keys MD, [facility] CPT-4: 04132 06/17/2016 Plan of Care Planned Activity Notes [...] spray. 04/21/2017 [facility] [phone] [facility] ([facility] Moderate 04/21/2017 Patient Education: [...] changes. 03/03/2017 App[facility]ment[facility] [phone] [facility] (30 min) Complex 03/03/2017 Patient Education: [...] daily. 02/13/2017 App[facility]ment: [facility] [phone] [facility] [place] (10 min) Simple 02/13/2017 Patient [...] allergy spray. 02/09/2017 Appointment: Leisa Kirkpatrick WPtel: [phone] (15 min) Moderate 02/09/2017 Patient Education: Patient [...] spray. 12/14/2016 App[facility]ment[facility] [phone] [facility] ([facility] min) Moderate 12/14/2016 Patient Education: Patient [...] not improving. 12/05/2016 Appointment: Leisa Kirkpatrick WPtel: [address] [place], [place] [id number] (30 min) [facility] 12/05/2016 Patient Education: Patient Medication Summary Completed [...] Lisseth Greene WPtel: [phone] [phone] (30 min) Complex 09/23/2016 Patient Education: Patient [...] not show improvement.Allergies/asthma - pt sees an electrical system specialist who recently started her on Qvar and dexilant. They are referring her to pulmonology (Dr. Mcconnell) - pt is to notify clinic with any questions or concerns. 07/08/2016 Appointment: Lisseth Greene WPtel: [phone] [phone] [place] (15 min) Moderate 07/08/2016 Patient Education: [...] medications. 06/17/2016 App[facility]ment: [facility] [phone] [phone] New Patient 06/17/2016 Patient Education: Patient [...] show improvement. Allergies/asthma - pt sees an electrical system specialist who recently started her on Qvar [...]
--- OUTSIDE RECORDS SUMMARY | 2019-03-30 10:18 | XMS REPORT | CCD ---
Author Author Leisa Kirkpatrick MD, [facility] Address [address] [place] [address] Phone Care Team Providers Care Product Development Carpenter Name Role Phone PP Unavailable CCM Unavailable Summary Purpose Interface Exchange Insurance Providers Payer name Policy type / Coverage type Covered democrat ID Effective Begin Date Effective End Date [facility] [id number] 2015 Unknown Family history Father Diagnosis Age At Onset Heart Attack Unknown genetic disease Unknown Skin cancer Unknown Hypertension Unknown Mother Diagnosis Age At Onset Stroke Unknown Daughter Diagnosis Age At Onset Asthma Unknown Arthritis Unknown Social History Social History Element Codes Description Effective Dates Marital status Unknown omar 06/17/2016 Number of children Unknown 2 06/17/[address]: 833092824 Never smoker 06/17/2016 Alcohol history Unknown occasionally drinks alcohol 06/17/2016 Allergies, Adverse Reactions, Alerts Allergies, Adverse Reactions, Alerts data not found Past Medical History Illness Codes Condition Status Onset Date Resolved Date Moderate persistent asthma with (acute) exacerbation ICD-9: 493.12 ICD-10: J45.41 Active 03/03/2017 Unknown Asthma Unknown Active 02/13/2017 Unknown Acute laryngopharyngitis ICD-9: 465.0 ICD-10: J06.0 Active 02/09/2017 Unknown Moderate persistent asthma, uncomplicated ICD-9: 493.90 ICD-10: J45.40 Active 09/22/2016 Unknown Other acute sinusitis ICD- 9: 461.8 ICD-10: J01.80 Active 07/07/2016 Unknown Other mucopurulent conjunctivitis, left eye ICD-9: 372.03 ICD-10: H10.022 Active 02/13/2017 Unknown Other allergic rhinitis ICD-9: 477.8 ICD-10: J30.89 Active 09/22/2016 Unknown Gastro-esophageal reflux disease without esophagitis ICD-9: [...] exacerbation ICD-9: 493.12 ICD-10: J45.41 03/03/2017 Active Asthma Unknown 02/13/2017 Active Acute laryngopharyngitis ICD-9: 465.0 ICD-10: J06.0 02/09/2017 Active Moderate persistent asthma, uncomplicated ICD-9: 493.90 ICD-10: J45.40 09/22/2016 Active Other acute sinusitis ICD- 9: 461.8 ICD-10: J01.80 07/07/2016 Active Other mucopurulent conjunctivitis, left eye ICD-9: 372.03 ICD-10: H10.022 02/13/2017 Active Other allergic rhinitis ICD-9: 477.8 ICD-10: J30.89 09/22/2016 Active Gastro-esophageal reflux disease without esophagitis ICD-9: [...] Fill Instructions prednisone 20 mg tablet RxNorm: 459564 1 Tablet(s) PO BID Start with 1 pill daily and see how effective it is - if still not effective increase to twice a day as discussed 03/03/2017 03/07/2017 Inactive lisinopril 10 mg tablet RxNorm: 373828 1 Tablet(s) PO daily 03/01/2017 08/27/2017 Active ciprofloxacin 0.3 % eye drops RxNorm: 018159 2 Drop(s) OPH QID 02/13/2017 02/17/2017 Inactive Zithromax 250 mg tablet RxNorm: 492167 1 Tablet(s) PO daily 02/13/2017 02/15/2017 Inactive Zithromax Z-Maykel 250 mg tablet RxNorm: 575820 1 Tablet(s) PO UD 02/09/2017 No Stop Date Active Zithromax Z-Maykel 250 mg tablet RxNorm: 612014 1 Tablet(s) PO UD 02/09/2017 02/08/2017 Inactive Premarin 0.625 mg/gram vaginal cream RxNorm: 956327 1 Application VAG BIW 12/30/2016 No Stop Date Active Zantac 150 mg tablet RxNorm: 514954 1 Tablet(s) PO BID 12/05/2016 04/03/2017 Inactive prednisone 20 mg tablet RxNorm: 910089 2 Tablet(s) PO daily 12/05/2016 12/09/2016 Inactive Zithromax Z-Maykel 250 mg tablet RxNorm: 151445 Tablet(s) PO UD 12/05/2016 02/08/2017 Inactive lisinopril 10 mg tablet RxNorm: 539614 1 Tablet(s) PO daily 10/31/2016 02/27/2017 Inactive Tessalon Perles 100 mg capsule RxNorm: 221683 2 Capsule(s) PO TID as needed dyspnea 09/23/2016 09/27/2016 Inactive prednisone 20 mg tablet RxNorm: 039124 2 Tablet(s) PO daily 09/23/2016 09/27/2016 Inactive Qvar 80 mcg/actuation Metered Aerosol oral inhaler RxNorm: 774280 1 INH BID started by her human service specialist 08/02/2016 09/12/2016 Inactive Zithromax Z-Maykel 250 mg tablet RxNorm: 366341 Tablet(s) PO UD 07/08/2016 12/04/2016 Inactive Tessalon Perles 100 mg capsule RxNorm: 512615 2 Capsule(s) PO TID as needed dyspnea 07/08/2016 07/12/2016 Inactive prednisone 20 mg tablet RxNorm: 936673 1 Tablet(s) PO UD 07/08/2016 09/22/2016 Inactive Premarin 0.625 mg/gram vaginal cream RxNorm: 542589 1 Application VAG BIW 06/21/2016 12/29/2016 Inactive Dulera 200 mcg-5 mcg/actuation HFA aerosol inhaler RxNorm: 3650509 2 INH Q2H 06/17/2016 No Stop Date Active lisinopril 10 mg tablet RxNorm: 404799 1 Tablet(s) PO daily 06/17/2016 10/14/2016 Inactive olopatadine 0.1 % eye drops RxNorm: 9834974 Drop(s) OPH PRN No Start Date Active ProAir HFA 90 mcg/actuation aerosol inhaler RxNorm: 623846 2 Puff(s) INH PRN No Start Date Active Zyrtec 10 mg capsule RxNorm: 1975268 1 Capsule(s) PO daily No Start Date Active lutein 20 mg capsule RxNorm: 513146 1 Capsule(s) PO daily No Start Date Active [place] Oil 1,000 mg capsule RxNorm: 1 Capsule(s) PO daily No Start Date Active montelukast 10 mg tablet RxNorm: 059221 1 Tablet(s) PO daily No Start Date Active Vitamin D3 1,000 unit capsule RxNorm: 885844 Capsule(s) PO No Start Date Active B12 sublingual RxNorm: 19123 sublingual No Start Date Active pravastatin 20 mg tablet RxNorm: 985115 1 Tablet(s) PO daily No Start Date Active zinc picolinate 50 mg tablet RxNorm: 1 Tablet(s) PO daily No Start Date Active chromium picolinate 200 mcg capsule RxNorm: 813449 1 Capsule(s) PO daily No Start Date Active magnesium RxNorm: 1 PO BID No Start Date Active premarin 0.5% Vaginal cream RxNorm: 1 VAG daily No Start Date Active Xolair 150 mg subcutaneous solution RxNorm: 8830077 1 SQ monthly No Start Date Active folate #7-pc dha-pe iax-COAU-fibrao-IF-multivitamin #46 oral RxNorm: oral No Start Date Active prednisone RxNorm: 8640 miscellaneous No Start Date Active Dulera 200 mcg-5 mcg/actuation HFA aerosol inhaler RxNorm: 8562666 2 INH Q4H No Start Date 06/16/2016 Inactive lisinopril 10 mg tablet RxNorm: 532853 1 Tablet(s) PO daily No Start Date 06/16/2016 Inactive Medication Administered No Medication Administered data Immunizations No Immunization data Assessments Condition Codes Effective Dates Moderate persistent asthma with (acute) exacerbation ICD-10: J45.41 ICD-9: 493.12 03/03/2017 Other mucopurulent conjunctivitis, left eye ICD-10: H10.022 ICD-9: 372.03 02/13/2017 Acute laryngopharyngitis ICD-10: J06.0 ICD-9: 465.0 02/13/2017 Moderate persistent asthma, uncomplicated ICD-10: J45.40 ICD-9: 493.90 02/13/2017 Other allergic rhinitis ICD-10: J30.89 ICD-9: 477.8 02/09/2017 Other acute sinusitis ICD-10: J01.80 ICD-9: 461.8 02/09/2017 Gastro-esophageal reflux disease without esophagitis ICD-10: K21.9 ICD-9: 530.81 12/05/2016 Cough ICD-10: R05 ICD-9: 786.2 09/23/2016 Mixed hyperlipidemia ICD-10: E78.2 ICD-9: 272.4 06/17/2016 Essential (primary) hypertension ICD-10: I10 ICD-9: 401.9 06/17/2016 Encounter for gynecological examination (general) (routine) without abnormal findings ICD-10: Z01.419 ICD-9: V72.31 06/17/2016 Reason For Visit Reason For Visit Effective Dates Notes cough 03/03/2017 cough 02/13/2017 sinus congestion 02/09/2017 cough 12/14/2016 sinus congestion 12/05/2016 cough 09/23/2016 nasal allergies 09/14/2016 sinus congestion 07/08/2016 well woman exam (40-65 years) 06/17/2016 Results Observation Observation Code Item Item Code Result Date Marlene Sandoval SC [id number] Strep A TNP:Lab Request 02/09/2017 Marlene Sandoval SC [id number] IC OK? TNP:Lab Request 02/09/2017 Review of Systems System Result Effective Dates Constitutional recent illness 03/03/2017 Constitutional No chills [...] No Procedures data Vital Signs Date Vital 03/03/2017 Blood Pressure 1: 136/78 Code: 8480-6 BMI: 29.9 Code: 70514-1 Heart Rate 1: 91 bpm Height: 5'4" SpO2: 96% Weight: 174 lbs 02/13/2017 Blood Pressure 1: 116/74 Code: 8480-6 BMI: 29.2 Code: 40244-7 Heart Rate 1: 91 bpm Height: 5'4" SpO2: 94% Weight: 170 lbs 02/09/2017 Blood Pressure 1: 120/72 Code: 8480-6 BMI: 29.0 Code: 60957-2 Heart Rate 1: 100 bpm Height: 5'4" SpO2: 97% Temperature: 37.4 (C) / 99.3 (F) Weight: 169 lbs 12/14/2016 Blood Pressure 1: 130/72 Code: 8480-6 BMI: 29.5 Code: 47057-0 Heart Rate 1: 100 bpm Height: 5'4" SpO2: 95% Weight: 172 lbs 12/05/2016 Blood Pressure 1: 136/78 Code: 8480-6 BMI: 29.2 Code: 61988-2 Heart Rate 1: 117 bpm Height: 5'4" SpO2: 97% Weight: 170 lbs 09/23/2016 Blood Pressure 1: 130/74 Code: 8480-6 BMI: 30.2 Code: 72062-2 Heart Rate 1: 102 bpm Height: 5'4" SpO2: 94% Weight: 176 lbs 09/14/2016 Blood Pressure 1: 128/74 Code: 8480-6 BMI: 29.4 Code: 01149-3 Heart Rate 1: 90 bpm Height: 5'4" SpO2: 97% Weight: 171 lbs 07/08/2016 Blood Pressure 1: 118/64 Code: 8480-6 BMI: 28.8 Code: 26280-3 Heart Rate 1: 115 bpm Height: 5'4" SpO2: 97% Weight: 168 lbs 06/17/2016 Blood Pressure 1: 144/86 Code: 8480-6 BMI: 29.5 Code: 43246-5 Heart Rate 1: 94 bpm Height: 5'4" SpO2: 96% Weight: 172 lbs Functional Status No Functional Status data History of Present Illness Symptom Name Status Result Effective Date Notes cough Location in the throat 03/03/2017 None [...] data Encounters Encounter Performer Location Codes Date 19438 EST. PATIENT, LEVEL III Diagnosis: Moderate persistent asthma with (acute) exacerbation[ICD10: J45.41] Leisa Keys MD, [facility] CPT-4: 75433 03/03/2017 68609 EST. PATIENT, LEVEL IV Diagnosis: Moderate persistent asthma, uncomplicated[ICD10: J45.40] Diagnosis: Other mucopurulent conjunctivitis, left eye[ICD10: H10.022] Diagnosis: Acute laryngopharyngitis[ICD10: J06.0] Leisa Keys MD, [facility] CPT- 4: 86662 02/13/2017 57181 EST. PATIENT, LEVEL IV Diagnosis: Acute laryngopharyngitis[ICD10: J06.0] Diagnosis: Other acute sinusitis[ICD10: J01.80] Diagnosis: Other allergic rhinitis[ICD10: J30.89] Leisa Keys MD, [facility] CPT- 4: 03708 02/09/2017 15406 EST. PATIENT, LEVEL III Diagnosis: Other allergic rhinitis[ICD10: J30.89] Diagnosis: Moderate persistent asthma, uncomplicated[ICD10: J45.40] Leisa Keys MD, [facility] CPT-4: 10612 12/14/2016 59549 EST. PATIENT, LEVEL III Diagnosis: Other acute sinusitis[ICD10: J01.80] Diagnosis: Other allergic rhinitis[ICD10: J30.89] Diagnosis: Moderate persistent asthma, uncomplicated[ICD10: J45.40] Diagnosis: Gastro-esophageal reflux disease without esophagitis[ICD10: K21.9] Leisa Keys MD, [facility] CPT-4: 35787 12/05/2016 06782 EST. PATIENT, LEVEL IV Diagnosis: Other allergic rhinitis[ICD10: J30.89] Diagnosis: Moderate persistent asthma, uncomplicated[ICD10: J45.40] Diagnosis: Cough[ICD10: R05] Leisa Keys MD, [facility] CPT-4: 98008 09/23/2016 91326 EST. PATIENT, LEVEL IV Diagnosis: Moderate persistent asthma, uncomplicated[ICD10: J45.40] Diagnosis: Other allergic rhinitis[ICD10: J30.89] Leisa Keys MD, [facility] CPT- 4: 29913 09/14/2016 81590 EST. PATIENT, LEVEL IV Diagnosis: Other acute sinusitis[ICD10: J01.80] Leisa Keys MD, [facility] CPT- 4: 20401 07/08/2016 (91889) PREV VISIT NEW AGE 40-64 Diagnosis: Encounter for gynecological examination (general) (routine) without abnormal findings[ICD10: Z01.419] Diagnosis: Moderate persistent asthma, uncomplicated[ICD10: J45.40] Diagnosis: Essential (primary) hypertension[ICD10: I10] Diagnosis: Mixed hyperlipidemia[ICD10: E78.2] Leisa Keys MD, [facility] CPT-4: 11929 06/17/2016 Plan of Care Planned Activity Notes [...] acute changes. 03/03/2017 Appointment: Leisa Kirkpatrick WPtel: [address] [place], [place] [id number] (30 min) Complex 03/03/2017 Patient Education: Patient [...] times daily. 02/13/2017 Appointment: Leisa Kirkpatrick WPtel: [facility] (10 min) Simple 02/13/2017 Patient Education: Patient [...] nasal steroid allergy spray. 02/09/2017 Appointment: Leisa Kirkpatrcik WPtel: [facility] [place] (15 min) Moderate 02/09/2017 Patient Education: Patient [...] allergy spray. 12/14/2016 Appointment: Leisa Kirkpatrick WPtel: [facility] (15 min) Moderate 12/14/2016 Patient Education: [...] not improving. 12/05/2016 Appointment: Leisa Kirkpatrick WPtel: [facility] (30 min) Complex 12/05/2016 Patient Education: Patient [...] acute changes. 09/23/2016 Appointment: Lisseth Greene WPtel: [phone] (30 min) Complex 09/23/2016 Patient Education: Patient [...] not show improvement.Allergies/asthma - pt sees an human service specialist who recently started her on Qvar and dexilant. They are referring her to pulmonology (Dr. Mcconnell) - pt is to notify clinic with any questions or concerns. 07/08/2016 Appointment: Lisseth Greene WPtel: [phone] (15 min) Moderate 07/08/2016 Patient Education: [...] to medications. 06/17/2016 Appointment: Lisseth Greene WPtel: [phone] New Patient 06/17/2016 Patient Education: Patient [...] show improvement. Allergies/asthma - pt sees an human service specialist who recently started her on Qvar and dexilant. They are referring her to pulmonology (Dr. Mcconnell) - pt is to notify clinic with any questions or concerns. . Allergies - chronic - recommended pt [...]
--- OUTSIDE RECORDS SUMMARY | 2019-03-30 10:19 | XMS REPORT | CCD ---
Author Author Leisa Kirkpatrick MD, [facility] Address [address] [place] [address] Phone Care Team Providers Care Diamond Cutter Name Role Phone PP Unavailable CCM Unavailable Summary Purpose Interface Exchange Insurance Providers Payer name Policy type / Coverage type Covered green party ID Effective Begin Date Effective End Date [facility] [id number] 2015 Unknown Family history Father Diagnosis Age At Onset Heart Attack Unknown genetic disease Unknown Skin cancer Unknown Hypertension Unknown Mother Diagnosis Age At Onset Stroke Unknown Daughter Diagnosis Age At Onset Asthma Unknown Arthritis Unknown Social History Social History Element Codes Description Effective Dates Marital status Unknown omar 06/17/2016 Number of children Unknown 2 06/17/[address]: 075393487 Never smoker 06/17/2016 Alcohol history Unknown occasionally [...] Fill Instructions prednisone 20 mg tablet RxNorm: 397247 1 Tablet(s) PO BID Start with 1 pill daily and see how effective it is - if still not effective increase to twice a day as discussed 03/03/2017 03/07/2017 Inactive lisinopril 10 mg tablet RxNorm: 755734 1 Tablet(s) PO daily 03/01/2017 08/27/2017 Active ciprofloxacin 0.3 % eye drops RxNorm: 943005 2 Drop(s) OPH QID 02/13/2017 02/17/2017 Inactive Zithromax 250 mg tablet RxNorm: 547514 1 Tablet(s) PO daily 02/13/2017 02/15/2017 Inactive Zithromax Z-Maykel 250 mg tablet RxNorm: 111685 1 Tablet(s) PO UD 02/09/2017 No Stop Date Active Zithromax Z-Maykel 250 mg tablet RxNorm: 459812 1 Tablet(s) PO UD 02/09/2017 02/08/2017 Inactive Premarin 0.625 mg/gram vaginal cream RxNorm: 993932 1 Application VAG BIW 12/30/2016 No Stop Date Active Zantac 150 mg tablet RxNorm: 065791 1 Tablet(s) PO BID 12/05/2016 04/03/2017 Active prednisone 20 mg tablet RxNorm: 129930 2 Tablet(s) PO daily 12/05/2016 12/09/2016 Inactive Zithromax Z-Maykel 250 mg tablet RxNorm: 207703 Tablet(s) PO UD 12/05/2016 02/08/2017 Inactive lisinopril 10 mg tablet RxNorm: 868144 1 Tablet(s) PO daily 10/31/2016 02/27/2017 Inactive Tessalon Perles 100 mg capsule RxNorm: 849274 2 Capsule(s) PO TID as needed dyspnea 09/23/2016 09/27/2016 Inactive prednisone 20 mg tablet RxNorm: 698265 2 Tablet(s) PO daily 09/23/2016 09/27/2016 Inactive Qvar 80 mcg/actuation Metered Aerosol oral inhaler RxNorm: 320281 1 INH BID started by her clutch specialist 08/02/2016 09/12/2016 Inactive Zithromax Z-Maykel 250 mg tablet RxNorm: 338744 Tablet(s) PO UD 07/08/2016 12/04/2016 Inactive Tessalon Perles 100 mg capsule RxNorm: 677121 2 Capsule(s) PO TID as needed dyspnea 07/08/2016 07/12/2016 Inactive prednisone 20 mg tablet RxNorm: 212299 1 Tablet(s) PO UD 07/08/2016 09/22/2016 Inactive Premarin 0.625 mg/gram vaginal cream RxNorm: 890880 1 Application VAG BIW 06/21/2016 12/29/2016 Inactive Dulera 200 mcg-5 mcg/actuation HFA aerosol inhaler RxNorm: 0228908 2 INH Q2H 06/17/2016 No Stop Date Active lisinopril 10 mg tablet RxNorm: 309659 1 Tablet(s) PO daily 06/17/2016 10/14/2016 Inactive olopatadine 0.1 % eye drops RxNorm: 3547733 Drop(s) OPH PRN No Start Date Active ProAir HFA 90 mcg/actuation aerosol inhaler RxNorm: 563472 2 Puff(s) INH PRN No Start Date Active Zyrtec 10 mg capsule RxNorm: 1789812 1 Capsule(s) PO daily No Start Date Active lutein 20 mg capsule RxNorm: 766788 1 Capsule(s) PO daily No Start Date Active [place] Oil 1,000 mg capsule RxNorm: 1 Capsule(s) PO daily No Start Date Active montelukast 10 mg tablet RxNorm: 456092 1 Tablet(s) PO daily No Start Date Active Vitamin D3 1,000 unit capsule RxNorm: 901395 Capsule(s) PO No Start Date Active B12 sublingual RxNorm: 11156 sublingual No Start Date Active pravastatin 20 mg tablet RxNorm: 645067 1 Tablet(s) PO daily No Start Date Active zinc picolinate 50 mg tablet RxNorm: 1 Tablet(s) PO daily No Start Date Active chromium picolinate 200 mcg capsule RxNorm: 482946 1 Capsule(s) PO daily No Start Date Active magnesium RxNorm: 1 PO BID No Start Date Active premarin 0.5% Vaginal cream RxNorm: 1 VAG daily No Start Date Active Xolair 150 mg subcutaneous solution RxNorm: 7328598 1 SQ monthly No Start Date Active folate #7-pc dha-pe dkw-KDGQ-faqcpa-IF-multivitamin #46 oral RxNorm: oral No Start Date Active prednisone RxNorm: 8640 miscellaneous No Start Date Active Dulera 200 mcg-5 mcg/actuation HFA aerosol inhaler RxNorm: 9357737 2 INH Q4H No Start Date 06/16/2016 Inactive lisinopril 10 mg tablet RxNorm: 022556 1 Tablet(s) PO daily No Start Date [...] Item Code Result Date Marlene Sandoval SC [id number] Strep A TNP:Lab Request 02/09/2017 Marlene Sandoval SC [id number] IC OK? TNP:Lab Request 02/09/2017 Review of [...] 1: 136/78 Code: 8480-6 BMI: 29.9 Code: 63832-1 Heart Rate 1: 91 bpm Height: 5'4" SpO2: 96% Weight: 174 lbs 02/13/2017 Blood Pressure 1: 116/74 Code: 8480-6 BMI: 29.2 Code: 12889-4 Heart Rate 1: 91 bpm Height: 5'4" SpO2: 94% Weight: 170 lbs 02/09/2017 Blood Pressure 1: 120/72 Code: 8480-6 BMI: 29.0 Code: 77339-0 Heart Rate 1: 100 bpm Height: 5'4" SpO2: 97% Temperature: 37.4 (C) / 99.3 (F) Weight: 169 lbs 12/14/2016 Blood Pressure 1: 130/72 Code: 8480-6 BMI: 29.5 Code: 92621-1 Heart Rate 1: 100 bpm Height: 5'4" SpO2: 95% Weight: 172 lbs 12/05/2016 Blood Pressure 1: 136/78 Code: 8480-6 BMI: 29.2 Code: 66925-0 Heart Rate 1: 117 bpm Height: 5'4" SpO2: 97% Weight: 170 lbs 09/23/2016 Blood Pressure 1: 130/74 Code: 8480-6 BMI: 30.2 Code: 12980-8 Heart Rate 1: 102 bpm Height: 5'4" SpO2: 94% Weight: 176 lbs 09/14/2016 Blood Pressure 1: 128/74 Code: 8480-6 BMI: 29.4 Code: 71208-5 Heart Rate 1: 90 bpm Height: 5'4" SpO2: 97% Weight: 171 lbs 07/08/2016 Blood Pressure 1: 118/64 Code: 8480-6 BMI: 28.8 Code: 90162-0 Heart Rate 1: 115 bpm Height: 5'4" SpO2: 97% Weight: 168 lbs 06/17/2016 Blood Pressure 1: 144/86 Code: 8480-6 BMI: 29.5 Code: 96581-1 Heart Rate 1: 94 bpm Height: 5'4" [...] data Encounters Encounter Performer Location Codes Date 68022 EST. PATIENT, LEVEL III Diagnosis: Moderate persistent asthma with (acute) exacerbation[ICD10: J45.41] Leisa Keys MD, [facility] CPT-4: 21131 03/03/2017 11553 EST. PATIENT, LEVEL IV Diagnosis: Moderate persistent asthma, uncomplicated[ICD10: J45.40] Diagnosis: Other mucopurulent conjunctivitis, left eye[ICD10: H10.022] Diagnosis: Acute laryngopharyngitis[ICD10: J06.0] Leisa Keys MD, [facility] CPT- 4: 86948 02/13/2017 48396 EST. PATIENT, LEVEL IV Diagnosis: Acute laryngopharyngitis[ICD10: J06.0] Diagnosis: Other acute sinusitis[ICD10: J01.80] Diagnosis: Other allergic rhinitis[ICD10: J30.89] Leisa Keys MD, [facility] CPT- 4: 12414 02/09/2017 91670 EST. PATIENT, LEVEL III Diagnosis: Other allergic rhinitis[ICD10: J30.89] Diagnosis: Moderate persistent asthma, uncomplicated[ICD10: J45.40] Leisa Keys MD, [facility] CPT-4: 28060 12/14/2016 00734 EST. PATIENT, LEVEL III Diagnosis: Other acute sinusitis[ICD10: J01.80] Diagnosis: Other allergic rhinitis[ICD10: J30.89] Diagnosis: Moderate persistent asthma, uncomplicated[ICD10: J45.40] Diagnosis: Gastro-esophageal reflux disease without esophagitis[ICD10: K21.9] Leisa Keys MD, [facility] CPT-4: 62627 12/05/2016 39261 EST. PATIENT, LEVEL IV Diagnosis: Other allergic rhinitis[ICD10: J30.89] Diagnosis: Moderate persistent asthma, uncomplicated[ICD10: J45.40] Diagnosis: Cough[ICD10: R05] Leisa Keys MD, [facility] CPT-4: 00851 09/23/2016 06272 EST. PATIENT, LEVEL IV Diagnosis: Moderate persistent asthma, uncomplicated[ICD10: J45.40] Diagnosis: Other allergic rhinitis[ICD10: J30.89] Leisa Keys MD, [facility] CPT- 4: 13267 09/14/2016 63839 EST. PATIENT, LEVEL IV Diagnosis: Other acute sinusitis[ICD10: J01.80] Leisa Keys MD, [facility] CPT- 4: 34707 07/08/2016 (65253) PREV VISIT NEW AGE 40-64 Diagnosis: Encounter for gynecological examination (general) (routine) without abnormal findings[ICD10: Z01.419] Diagnosis: Moderate persistent asthma, uncomplicated[ICD10: J45.40] Diagnosis: Essential (primary) hypertension[ICD10: I10] Diagnosis: Mixed hyperlipidemia[ICD10: E78.2] Leisa Keys MD, [facility] CPT-4: 97628 06/17/2016 Plan of Care Planned Activity Notes [...] acute changes. 03/03/2017 Appointment: Leisa Kirkpatrick WPtel: [address] [place], [place] [id number] (30 min) Complex 03/03/2017 Patient Education: Patient [...] times daily. 02/13/2017 Appointment: Leisa Kirkpatrick WPtel: [facility] (10 min) Simple 02/13/2017 Patient Education: Patient [...] allergy spray. 02/09/2017 Appointment: Leisa Kirkpatrick WPtel: [facility] [place] (15 min) Moderate 02/09/2017 Patient Education: [...] allergy spray. 12/14/2016 Appointment: Leisa Kirkpatrick WPtel: [facility] (15 min) Moderate 12/14/2016 Patient Education: Patient [...] not improving. 12/05/2016 Appointment: Leisa Kirkpatrick WPtel: [facility] (30 min) Complex 12/05/2016 Patient Education: [...] acute changes. 09/23/2016 Appointment: Lisseth Greene [facility]Ptel[phone] (30 min) Complex 09/23/2016 Patient Education: [...] not show improvement.Allergies/asthma - pt sees an clutch specialist who recently started her on Qvar and dexilant. They are referring her to pulmonology (Dr. Mcconnell) - pt is to notify clinic with any questions or concerns. 07/08/2016 Appointment: Lisseth Greene WPtel[phone] (15 min) Moderate 07/08/2016 Patient Education: [...] to medications. 06/17/2016 Appointment: Lisseth Greene WPtel[phone] New Patient 06/17/2016 Patient Education: Patient [...] show improvement. Allergies/asthma - pt sees an clutch specialist who recently started her on Qvar [...]
--- OUTSIDE RECORDS SUMMARY | 2019-03-30 10:21 | XMS REPORT | CCD ---
Author Author Leisa Kirkpatrick MD, [facility] Address [address] [place] [address] Phone Care Team Providers Care Email Engineer Name Role Phone PP Unavailable CCM Unavailable Summary Purpose Interface Exchange Insurance Providers Payer name Policy type / Coverage type Covered green party ID Effective Begin Date Effective End Date [facility] [id number] Unknown Family history Father Diagnosis Age At Onset Heart Attack Unknown genetic disease Unknown Skin cancer Unknown Hypertension Unknown Mother Diagnosis Age At Onset Stroke Unknown Daughter Diagnosis Age At Onset Asthma Unknown Arthritis Unknown Social History Social History Element Codes Description Effective Dates Marital status Unknown Lev 10/10/2017 Number of children Unknown 2 06/17/[address]: 697415203 Never smoker 06/17/2016 Alcohol history Unknown occasionally drinks alcohol 06/17/2016 Allergies, Adverse Reactions, Alerts Substance Reaction Codes Entered Date Inactivated Date Status ceclor RxNorm: 2176 06/17/2016 No Inactive Date Active CODEINE RxNorm: 2670 06/17/2016 No Inactive Date Active Past Medical History Illness Codes Condition Status Onset Date Resolved Date Other acute sinusitis ICD- 9: 461.8 ICD-10: [...] ICD-9: 786.2 ICD-10: R05 Active 09/22/2016 Unknown Moderate persistent asthma with (acute) exacerbation ICD-9: 493.12 ICD-10: J45.41 Active 03/03/2017 Unknown Diverticulitis of large intestine without perforation [...] ICD-9: 268.9 ICD-10: E55.9 Active 04/09/2018 Unknown Acute bronchitis due to other specified organisms ICD-9: 466.0 ICD-10: J20.8 Active 12/08/2017 Unknown Gastro-esophageal reflux disease without esophagitis ICD-9: [...] Problems Condition Codes Effective Dates Condition Status Other acute sinusitis ICD- 9: 461.8 ICD-10: [...] Cough ICD-9: 786.2 ICD-10: R05 09/22/2016 Active Moderate persistent asthma with (acute) exacerbation ICD-9: 493.12 ICD-10: J45.41 03/03/2017 Active Diverticulitis of large intestine without perforation [...] unspecified ICD-9: 268.9 ICD-10: E55.9 04/09/2018 Active Acute bronchitis due to other specified organisms ICD-9: 466.0 ICD-10: J20.8 12/08/2017 Active Gastro-esophageal reflux disease without esophagitis ICD-9: [...] Start Date Stop Date Status Fill Instructions Bactrim DS 800 mg-160 mg tablet RxNorm: 926203 1 Tablet(s) PO BID 02/08/2019 02/17/2019 Active Flagyl 500 mg tablet RxNorm: 851755 1 Tablet(s) PO TID 02/05/2019 02/14/2019 Active clotrimazole 1 % topical cream RxNorm: 220796 1 Application TOP BID 01/23/2019 No Stop Date Active Tamiflu 75 mg capsule RxNorm: 664423 1 Capsule(s) PO daily 01/11/2019 01/20/2019 Inactive Tamiflu 75 mg capsule RxNorm: 156173 1 Capsule(s) PO daily 01/11/2019 01/10/2019 Inactive losartan 25 mg tablet RxNorm: 048585 1 Tablet(s) PO daily 12/24/2018 04/22/2019 Active losartan 25 mg tablet RxNorm: 619381 1 Tablet(s) PO daily 12/24/2018 12/23/2018 Inactive Zithromax Z-Maykel 250 mg tablet RxNorm: 336099 1 Tablet(s) PO UD 10/05/2018 10/09/2018 Inactive prednisone 20 mg tablet RxNorm: 726327 2 Tablet(s) PO daily 10/05/2018 10/09/2018 Inactive Zantac 150 mg tablet RxNorm: 775352 TAKE 1 TABLET BY MOUTH TWICE DAILY 08/22/2018 08/16/2019 Active Generic For:*ZANTAC 150 MG TABLET 08/22/2018 10:42:54 AM lisinopril 10 mg tablet RxNorm: 481233 TAKE 1 TABLET BY MOUTH DAILY 08/22/2018 12/24/2018 Inactive Generic For:ZESTRIL 10 MG TABLET 08/22/2018 10:43:05 AM prednisone 10 mg tablet RxNorm: 843908 Tablet(s) PO 07/24/2018 No Stop Date Active 40,40,30,30,20,20,10,10,5mg every other day x 2 doses Zithromax Z-Maykel 250 mg tablet RxNorm: 676056 1 Tablet(s) PO UD 07/24/2018 10/04/2018 Inactive Protonix 20 mg tablet,delayed release RxNorm: 292358 1 Tablet(s) PO BID 05/23/2018 11/18/2018 Inactive acyclovir 400 mg tablet RxNorm: 527349 2 Tablet(s) PO QID 05/07/2018 05/16/2018 Inactive doxycycline hyclate 100 mg capsule RxNorm: 3629329 1 Capsule(s) PO BID 04/20/2018 04/29/2018 Inactive Bactrim DS 800 mg-160 mg tablet RxNorm: 281212 1 Tablet(s) PO BID 04/16/2018 04/18/2018 Inactive Bactrim DS 800 mg-160 mg tablet RxNorm: 854586 1 Tablet(s) PO BID 04/09/2018 04/15/2018 Inactive lisinopril 10 mg tablet RxNorm: 486596 TAKE 1 TABLET BY MOUTH DAILY 02/21/2018 08/19/2018 Inactive Generic For:ZESTRIL 10 MG TABLET 02/21/2018 11:39:12 AM prednisone 10 mg tablet RxNorm: 335443 Tablet(s) PO 60mg x 2 days, then 40mg x 2 days, then 20mg x 2 days, the 10mg x 2 days, then 5mg every other day x 2 doses 12/08/2017 No Stop Date Active disp qty sufficient doxycycline hyclate 100 mg capsule RxNorm: 0737739 1 Capsule(s) PO BID 12/08/2017 12/17/2017 Inactive albuterol sulfate 2.5 mg/3 mL (0.083 %) solution for nebulization RxNorm: 456899 3 Milliliter(s) INH Q4-6H 12/06/2017 No Stop Date Active prednisone 20 mg tablet RxNorm: 556539 Tablet(s) PO 40mg x 2 days, then 20mg x 2 days, then 10mg x 2 days 12/01/2017 No Stop Date Active Zithromax Z-Maykel 250 mg tablet RxNorm: 328779 1 Tablet(s) PO UD 12/01/2017 04/15/2018 Inactive levocetirizine 5 mg tablet RxNorm: 394553 1 Tablet(s) PO daily 11/13/2017 05/11/2018 Inactive Protonix 20 mg tablet,delayed release RxNorm: 107639 1 Tablet(s) PO BID 11/13/2017 05/11/2018 Inactive Protonix 20 mg tablet,delayed release RxNorm: 660118 1 Tablet(s) PO BID 10/10/2017 11/08/2017 Inactive Tessalon Perles 100 mg capsule RxNorm: 228508 1-2 Capsule(s) PO TID as needed 10/10/2017 10/14/2017 Inactive prednisone 20 mg tablet RxNorm: 386277 Tablet(s) PO 40mg x 2 days, then 20mg x 2 days, then 10mg x 2 days 09/20/2017 11/30/2017 Inactive doxycycline hyclate 100 mg capsule RxNorm: 9605287 1 Capsule(s) PO BID 09/20/2017 09/26/2017 Inactive Zithromax Z-Maykel 250 mg tablet RxNorm: 788341 1 Tablet(s) PO UD 09/12/2017 10/09/2017 Inactive albuterol sulfate 2.5 mg/3 mL (0.083 %) solution for nebulization RxNorm: 451157 3 Milliliter(s) INH Q4-6H 09/12/2017 12/05/2017 Inactive prednisone 20 mg tablet RxNorm: 607585 2 Tablet(s) PO daily 09/12/2017 09/16/2017 Inactive lisinopril 10 mg tablet RxNorm: 005256 1 Tablet(s) PO daily 08/28/2017 02/20/2018 Inactive Zantac 150 mg tablet RxNorm: 495697 1 Tablet(s) PO BID 08/28/2017 08/21/2018 Inactive Cipro 500 mg tablet RxNorm: 986157 1 Tablet(s) PO BID 08/18/2017 08/26/2017 Inactive metronidazole 500 mg tablet RxNorm: 021350 1 Tablet(s) PO TID 08/18/2017 08/26/2017 Inactive prednisone 20 mg tablet RxNorm: 250806 2 Tablet(s) PO BID 06/12/2017 06/16/2017 Inactive Cipro 500 mg tablet RxNorm: 555247 1 Tablet(s) PO BID 05/04/2017 05/13/2017 Inactive metronidazole 500 mg tablet RxNorm: 967689 1 Tablet(s) PO TID 05/04/2017 05/13/2017 Inactive Zantac 150 mg tablet RxNorm: 707740 1 Tablet(s) PO BID 04/27/2017 08/24/2017 Inactive prednisone 20 mg tablet RxNorm: 588928 2 Tablet(s) PO BID start if getting worse 04/21/2017 04/25/2017 Inactive levocetirizine 5 mg tablet RxNorm: 363666 1 Tablet(s) PO daily 04/21/2017 05/20/2017 Inactive prednisone 20 mg tablet RxNorm: 388676 1 Tablet(s) PO BID Start with 1 pill daily and see how effective it is - if still not effective increase to twice a day as discussed 03/03/2017 03/07/2017 Inactive lisinopril 10 mg tablet RxNorm: 037605 1 Tablet(s) PO daily 03/01/2017 08/27/2017 Inactive ciprofloxacin 0.3 % eye drops RxNorm: 413229 2 Drop(s) OPH QID 02/13/2017 02/17/2017 Inactive Zithromax 250 mg tablet RxNorm: 337732 1 Tablet(s) PO daily 02/13/2017 02/15/2017 Inactive Zithromax Z-Maykel 250 mg tablet RxNorm: 787640 1 Tablet(s) PO UD 02/09/2017 02/08/2017 Inactive Zithromax Z-Maykel 250 mg tablet RxNorm: 809542 1 Tablet(s) PO UD 02/09/2017 09/11/2017 Inactive Premarin 0.625 mg/gram vaginal cream RxNorm: 079122 1 Application VAG BIW 12/30/2016 No Stop Date Active Zantac 150 mg tablet RxNorm: 164831 1 Tablet(s) PO BID 12/05/2016 04/03/2017 Inactive prednisone 20 mg tablet RxNorm: 573900 2 Tablet(s) PO daily 12/05/2016 12/09/2016 Inactive Zithromax Z-Maykel 250 mg tablet RxNorm: 576656 Tablet(s) PO UD 12/05/2016 02/08/2017 Inactive lisinopril 10 mg tablet RxNorm: 385794 1 Tablet(s) PO daily 10/31/2016 02/27/2017 Inactive Tessalon Perles 100 mg capsule RxNorm: 083010 2 Capsule(s) PO TID as needed dyspnea 09/23/2016 09/27/2016 Inactive prednisone 20 mg tablet RxNorm: 887814 2 Tablet(s) PO daily 09/23/2016 09/27/2016 Inactive Qvar 80 mcg/actuation Metered Aerosol oral inhaler RxNorm: 007575 1 INH BID started by her photo lab specialist 08/02/2016 09/12/2016 Inactive Zithromax Z-Maykel 250 mg tablet RxNorm: 878826 Tablet(s) PO UD 07/08/2016 12/04/2016 Inactive Tessalon Perles 100 mg capsule RxNorm: 466479 2 Capsule(s) PO TID as needed dyspnea 07/08/2016 07/12/2016 Inactive prednisone 20 mg tablet RxNorm: 508867 1 Tablet(s) PO UD 07/08/2016 09/22/2016 Inactive Premarin 0.625 mg/gram vaginal cream RxNorm: 396724 1 Application VAG BIW 06/21/2016 12/29/2016 Inactive Dulera 200 mcg-5 mcg/actuation HFA aerosol inhaler RxNorm: 7247747 2 INH Q2H 06/17/2016 No Stop Date Active lisinopril 10 mg tablet RxNorm: 585168 1 Tablet(s) PO daily 06/17/2016 10/14/2016 Inactive olopatadine 0.1 % eye drops RxNorm: 1223903 Drop(s) OPH PRN No Start Date Active ProAir HFA 90 mcg/actuation aerosol inhaler RxNorm: 982607 2 Puff(s) INH PRN No Start Date Active Zyrtec 10 mg capsule RxNorm: 6420710 1 Capsule(s) PO daily No Start Date Active lutein 20 mg capsule RxNorm: 748394 1 Capsule(s) PO daily No Start Date Active Adams Oil 1,000 mg capsule RxNorm: 1 Capsule(s) PO daily No Start Date Active montelukast 10 mg tablet RxNorm: 867310 1 Tablet(s) PO daily No Start Date Active Vitamin D3 1,000 unit capsule RxNorm: 121549 Capsule(s) PO No Start Date Active B12 sublingual RxNorm: 71468 sublingual No Start Date Active pravastatin 20 mg tablet RxNorm: 889321 1 Tablet(s) PO daily No Start Date Active zinc picolinate 50 mg tablet RxNorm: 1 Tablet(s) PO daily No Start Date Active chromium picolinate 200 mcg capsule RxNorm: 950387 1 Capsule(s) PO daily No Start Date Active magnesium RxNorm: 1 PO BID No Start Date Active premarin 0.5% Vaginal cream RxNorm: 1 VAG daily No Start Date Active Xolair 150 mg subcutaneous solution RxNorm: 4851011 1 SQ monthly No Start Date Active folate #7-pc dha-pe [id number]-multivitamin #46 oral RxNorm: oral No Start Date Active prednisone RxNorm: 8640 miscellaneous No Start Date Active Dulera 200 mcg-5 mcg/actuation HFA aerosol inhaler RxNorm: 9932058 2 INH Q4H No Start Date 06/16/2016 Inactive lisinopril 10 mg tablet RxNorm: 052896 1 Tablet(s) PO daily No Start Date 06/16/2016 Inactive Medication Administered No Medication Administered data Immunizations Vaccine Codes Date Status Influenza CVX: 141 08/20/2018 completed Assessments Condition Codes Effective Dates Other allergic rhinitis ICD-10: J30.89 ICD-9: 477.8 [...] Mixed hyperlipidemia ICD-10: E78.2 ICD-9: 272.2 01/09/2019 Moderate persistent asthma with (acute) exacerbation ICD-10: J45.41 ICD-9: 493.12 10/05/2018 Cough ICD-10: R05 ICD-9: 786.2 10/05/2018 Diverticulitis [...] of breast ICD-10: Z12.31 ICD-9: V76.12 04/09/2018 Acute bronchitis due to other specified organisms ICD-10: J20.8 ICD-9: 466.0 12/08/2017 Gastro-esophageal reflux disease without esophagitis ICD-10: K21.9 [...] Visit Reason For Visit Effective Dates Notes sinus congestion 02/08/2019 diarrhea 02/05/2019 edema 01/23/2019 [...] Item Code Result Date C A/B FLU [id number] Influenza A Scr TNP:Duplicate Order 07/25/2018 C A/B FLU [id number] Influenza B Scr TNP:Duplicate Order 07/25/2018 C A/B FLU [id number] Influenza Intrp B AG:PRID:PT:NOSE:NOM:IF TNP:Duplicate Order 07/25/2018 C A/B FLU [id number] IC OK? TNP:Duplicate Order 07/25/2018 C RAP A SC [id number] Strep A TNP:Lab Request 02/09/2017 C RAP A SC [id number] IC OK? TNP:Lab Request 02/09/2017 Review of Systems System Result Effective Dates Constitutional No recent illness 02/08/2019 Constitutional No [...] Result Effective Dates Notes Full Exam - Dermatology Constitutional general appearance [...] clear 01/23/2019 None Full Exam - General 1995 Ears/Nose/Throat lips/teeth/gingiva Overall: benign lips 01/23/2019 None Full Exam - General 1995 Ears/Nose/Throat oral cavity/pharynx/larynx Overall: oral mucosa clear [...] No Procedures data Vital Signs Date Vital 02/08/2019 Blood Pressure 1: 122/76 Code: 8480-6 BMI: 28.8 Code: 11717-1 Heart Rate 1: 94 bpm Height: 5'4" SpO2: 98% Weight: 168 lbs 02/05/2019 Blood Pressure 1: 126/70 Code: 8480-6 BMI: 28.5 Code: 14949-2 Heart Rate 1: 90 bpm Height: 5'4" SpO2: 98% Weight: 166 lbs 01/23/2019 Blood Pressure 1: 122/64 Code: 8480-6 BMI: 28.8 Code: 70153-1 Heart Rate 1: 105 bpm Height: 5'4" SpO2: 98% Weight: 168 lbs 01/09/2019 Blood Pressure 1: 134/80 Code: 8480-6 BMI: 28.8 Code: 99671-2 Heart Rate 1: 98 bpm Height: 5'4" SpO2: 100% Weight: 168 lbs 10/05/2018 Blood Pressure 1: 150/84 Code: 8480-6 BMI: 29.9 Code: 71020-9 Heart Rate 1: 78 bpm Height: 5'4" SpO2: 91% Weight: 174 lbs 08/20/2018 Blood Pressure 1: 142/86 Code: 8480-6 BMI: 29.9 Code: 08145-9 Heart Rate 1: 79 bpm Height: 5'4" SpO2: 98% Weight: 174 lbs 07/24/2018 Blood Pressure 1: 150/84 Code: 8480-6 BMI: 29.9 Code: 46788-8 Heart Rate 1: 116 bpm Height: 5'4" SpO2: 96% Temperature: 37.0 (C) / 98.6 (F) Weight: 174 lbs 05/07/2018 Blood Pressure 1: 130/80 Code: 8480-6 BMI: 29.9 Code: 71916-3 Heart Rate 1: 93 bpm Height: 5'4" SpO2: 95% Weight: 174 lbs 04/20/2018 Blood Pressure 1: 134/70 Code: 8480-6 Heart Rate 1: 86 bpm Height: SpO2: 98% Weight: 04/09/2018 Blood Pressure 1: 132/76 Code: 8480-6 BMI: 29.5 Code: 90690-8 Heart Rate 1: 80 bpm Height: 5'4" SpO2: 98% Weight: 172 lbs 12/08/2017 Blood Pressure 1: 148/76 Code: 8480-6 BMI: 29.9 Code: 73679-0 Heart Rate 1: 97 bpm Height: 5'4" SpO2: 97% Weight: 174 lbs 12/01/2017 Blood Pressure 1: 124/74 Code: 8480-6 BMI: 29.9 Code: 19424-7 Heart Rate 1: 110 bpm Height: 5'4" SpO2: 97% Temperature: 37.4 (C) / 99.4 (F) Weight: 174 lbs 10/10/2017 Blood Pressure 1: 128/80 Code: 8480-6 BMI: 29.8 Code: 95514-7 Heart Rate 1: 91 bpm Height: 5'4" SpO2: 98% Temperature: 36.5 (C) / 97.7 (F) Weight: 173 lbs 8 oz 09/20/2017 Blood Pressure 1: 152/88 Code: 8480-6 BMI: 29.9 Code: 59207-5 Heart Rate 1: 87 bpm Height: 5'4" SpO2: 96% Weight: 174 lbs 09/12/2017 Blood Pressure 1: 134/74 Code: 8480-6 BMI: 29.9 Code: 44214-7 Heart Rate 1: 90 bpm Height: 5'4" SpO2: 96% Weight: 174 lbs 08/18/2017 Blood Pressure 1: 128/68 Code: 8480-6 Heart Rate 1: 88 bpm Height: SpO2: 97% Weight: 06/12/2017 Blood Pressure 1: 130/70 Code: 8480-6 BMI: 29.2 Code: 98302-1 Heart Rate 1: 94 bpm Height: 5'4" SpO2: 95% Weight: 170 lbs 05/04/2017 Blood Pressure 1: 138/80 Code: 8480-6 BMI: 29.9 Code: 88916-0 Heart Rate 1: 84 bpm Height: 5'4" SpO2: 97% Weight: 174 lbs 04/21/2017 Blood Pressure 1: 130/72 Code: 8480-6 BMI: 29.9 Code: 63271-1 Heart Rate 1: 90 bpm Height: 5'4" SpO2: 96% Weight: 174 lbs 03/03/2017 Blood Pressure 1: 136/78 Code: 8480-6 BMI: 29.9 Code: 59466-5 Heart Rate 1: 91 bpm Height: 5'4" SpO2: 96% Weight: 174 lbs 02/13/2017 Blood Pressure 1: 116/74 Code: 8480-6 BMI: 29.2 Code: 94797-4 Heart Rate 1: 91 bpm Height: 5'4" SpO2: 94% Weight: 170 lbs 02/09/2017 Blood Pressure 1: 120/72 Code: 8480-6 BMI: 29.0 Code: 20425-8 Heart Rate 1: 100 bpm Height: 5'4" SpO2: 97% Temperature: 37.4 (C) / 99.3 (F) Weight: 169 lbs 12/14/2016 Blood Pressure 1: 130/72 Code: 8480-6 BMI: 29.5 Code: 84318-9 Heart Rate 1: 100 bpm Height: 5'4" SpO2: 95% Weight: 172 lbs 12/05/2016 Blood Pressure 1: 136/78 Code: 8480-6 BMI: 29.2 Code: 36968-5 Heart Rate 1: 117 bpm Height: 5'4" SpO2: 97% Weight: 170 lbs 09/23/2016 Blood Pressure 1: 130/74 Code: 8480-6 BMI: 30.2 Code: 70383-3 Heart Rate 1: 102 bpm Height: 5'4" SpO2: 94% Weight: 176 lbs 09/14/2016 Blood Pressure 1: 128/74 Code: 8480-6 BMI: 29.4 Code: 59092-7 Heart Rate 1: 90 bpm Height: 5'4" SpO2: 97% Weight: 171 lbs 07/08/2016 Blood Pressure 1: 118/64 Code: 8480-6 BMI: 28.8 Code: 37126-3 Heart Rate 1: 115 bpm Height: 5'4" SpO2: 97% Weight: 168 lbs 06/17/2016 Blood Pressure 1: 144/86 Code: 8480-6 BMI: 29.5 Code: 11873-0 Heart Rate 1: 94 bpm Height: 5'4" SpO2: 96% Weight: 172 lbs Functional Status No Functional Status data History of Present Illness Symptom Name Status Result Effective Date Notes Location maxillary sinuses 02/08/2019 None Quality chronic [...] Codes Date EST. PATIENT, LEVEL III Diagnosis: Varicose veins of left lower extremity with pain[ICD10: I83.812] Diagnosis: Other allergic rhinitis[ICD10: J30.89] Diagnosis: Other chronic sinusitis[ICD10: J32.8] Leisa Keys MD, [facility] CPT- 4: 94440 02/08/2019 28659 EST. PATIENT, LEVEL III Diagnosis: Left lower quadrant pain[ICD10: R10.32] Diagnosis: Diarrhea, unspecified[ICD10: R19.7] [facility] CPT- 4: 98626 02/05/2019 66527 EST. PATIENT, LEVEL III Diagnosis: Tinea unguium[ICD10: B35.1] Diagnosis: Localized edema[ICD10: R60.0] Leisa Keys MD, [facility] CPT-4: 56139 01/23/2019 29113 EST. PATIENT, LEVEL III Diagnosis: Essential (primary) hypertension[ICD10: I10] Diagnosis: Mixed hyperlipidemia[ICD10: E78.2] Leisa Keys MD, [facility] CPT-4: 21408 01/09/2019 ([id number]) 28555 EST. PATIENT, LEVEL III Diagnosis: Cough[ICD10: R05] Diagnosis: Moderate persistent asthma with (acute) exacerbation[ICD10: J45.41] Lisseth Keys MD, [facility] CPT-4: 46138 10/05/2018 94935 EST. PATIENT, LEVEL III Diagnosis: Diverticulitis of large intestine without perforation or abscess with bleeding[ICD10: K57.33] Leisa Keys MD, [facility] CPT-4: 92457 08/20/2018 27077 EST. PATIENT, LEVEL IV Diagnosis: Other acute sinusitis[ICD10: J01.80] Diagnosis: Other allergic rhinitis[ICD10: J30.89] Leisa Keys MD, [facility] CPT- 4: 46842 07/24/2018 99514 EST. PATIENT, LEVEL III Diagnosis: Zoster without complications[ICD10: B02.9] Lisseth Keys MD, [facility] CPT-4: 47870 05/07/2018 24558 EST. PATIENT, LEVEL IV Diagnosis: Cough[ICD10: R05] Diagnosis: Fever presenting with conditions classified elsewhere[ICD10: R50.81] Leisa Keys MD, [facility] CPT-4: 21844 04/20/2018 74879 EST. PATIENT, LEVEL III Diagnosis: Other fatigue[ICD10: R53.83] Diagnosis: Vitamin D deficiency, unspecified[ICD10: E55.9] Diagnosis: Paresthesia of skin[ICD10: R20.2] Diagnosis: Mixed hyperlipidemia[ICD10: E78.2] Diagnosis: Cellulitis of left toe[ICD10: L03.032] Diagnosis: Essential (primary) hypertension[ICD10: I10] Leisa Keys MD, [facility] CPT-4: 06089 04/09/2018 71715 EST. PATIENT, LEVEL IV Diagnosis: Acute bronchitis due to other specified organisms[ICD10: J20.8] Diagnosis: Moderate persistent asthma with (acute) exacerbation[ICD10: J45.41] Leisa Keys MD, [facility] CPT-4: 44157 12/08/2017 81214 EST. PATIENT, LEVEL IV Diagnosis: Other acute sinusitis[ICD10: J01.80] Diagnosis: Other allergic rhinitis[ICD10: J30.89] Diagnosis: Moderate persistent asthma with (acute) exacerbation[ICD10: J45.41] Leisa Keys MD [facility] CPT-4: 41121 12/01/2017 84343 EST. PATIENT, LEVEL IV Diagnosis: Moderate persistent asthma with (acute) exacerbation[ICD10: J45.41] Diagnosis: Other allergic rhinitis[ICD10: J30.89] Diagnosis: Gastro-esophageal reflux disease without esophagitis[ICD10: K21.9] Leisa Keys MD [facility] CPT-4: 72436 10/10/2017 59527 EST. PATIENT, LEVEL III Diagnosis: Moderate persistent asthma with (acute) exacerbation[ICD10: J45.41] Diagnosis: Other allergic rhinitis[ICD10: J30.89] Diagnosis: Mixed hyperlipidemia[ICD10: E78.2] Leisa Keys MD [facility] CPT-4: 71920 09/20/2017 38633 EST. PATIENT, LEVEL IV Diagnosis: Acute laryngopharyngitis[ICD10: J06.0] Diagnosis: Other acute sinusitis[ICD10: J01.80] Diagnosis: Other allergic rhinitis[ICD10: J30.89] Leisa Keys MD [facility] CPT- 4: 96807 09/12/2017 97241 EST. PATIENT, LEVEL IV Diagnosis: Diverticulitis of large intestine without perforation or abscess with bleeding[ICD10: K57.33] Leisa Keys MD [facility] CPT-4: 58742 08/18/2017 42518 EST. PATIENT, LEVEL IV Diagnosis: Other allergic rhinitis[ICD10: J30.89] Diagnosis: Moderate persistent asthma with (acute) exacerbation[ICD10: J45.41] Leisa Keys MD [facility] CPT-4: 08345 06/12/2017 48735 EST. PATIENT, LEVEL IV Diagnosis: Diverticulitis of large intestine without perforation or abscess with bleeding[ICD10: K57.33] Leisa Keys MD [facility] CPT-4: 58111 05/04/2017 99091 EST. PATIENT, LEVEL IV Diagnosis: Other allergic rhinitis[ICD10: J30.89] Diagnosis: Moderate persistent asthma with (acute) exacerbation[ICD10: J45.41] Leisa Keys MD, [facility] CPT-4: 43922 04/21/2017 06039 EST. PATIENT, LEVEL III Diagnosis: Moderate persistent asthma with (acute) exacerbation[ICD10: J45.41] Leisa Keys MD, [facility] CPT-4: 11501 03/03/2017 34225 EST. PATIENT, LEVEL IV Diagnosis: Moderate persistent asthma, uncomplicated[ICD10: J45.40] Diagnosis: Other mucopurulent conjunctivitis, left eye[ICD10: H10.022] Diagnosis: Acute laryngopharyngitis[ICD10: J06.0] Leisa Keys MD, [facility] CPT- 4: 57961 02/13/2017 09588 EST. PATIENT, LEVEL IV Diagnosis: Acute laryngopharyngitis[ICD10: J06.0] Diagnosis: Other acute sinusitis[ICD10: J01.80] Diagnosis: Other allergic rhinitis[ICD10: J30.89] Leisa Keys MD, [facility] CPT- 4: 02663 02/09/2017 09745 EST. PATIENT, LEVEL III Diagnosis: Other allergic rhinitis[ICD10: J30.89] Diagnosis: Moderate persistent asthma, uncomplicated[ICD10: J45.40] Leisa Keys MD, [facility] CPT-4: 18299 12/14/2016 28082 EST. PATIENT, LEVEL III Diagnosis: Other acute sinusitis[ICD10: J01.80] Diagnosis: Other allergic rhinitis[ICD10: J30.89] Diagnosis: Moderate persistent asthma, uncomplicated[ICD10: J45.40] Diagnosis: Gastro-esophageal reflux disease without esophagitis[ICD10: K21.9] Leisa Keys MD, [facility] CPT-4: 05147 12/05/2016 95279 EST. PATIENT, LEVEL IV Diagnosis: Other allergic rhinitis[ICD10: J30.89] Diagnosis: Moderate persistent asthma, uncomplicated[ICD10: J45.40] Diagnosis: Cough[ICD10: R05] Leisa Keys MD, [facility] CPT-4: 87431 09/23/2016 41447 EST. PATIENT, LEVEL IV Diagnosis: Moderate persistent asthma, uncomplicated[ICD10: J45.40] Diagnosis: Other allergic rhinitis[ICD10: J30.89] [facility] CPT- 4: 43471 09/14/2016 40314 EST. PATIENT, LEVEL IV Diagnosis: Other acute sinusitis[ICD10: J01.80] [facility] CPT- 4: 65884 07/08/2016 (40113) PREV VISIT NEW AGE 40-64 Diagnosis: Encounter for gynecological examination (general) (routine) without abnormal findings[ICD10: Z01.419] Diagnosis: Moderate persistent asthma, uncomplicated[ICD10: J45.40] Diagnosis: Essential (primary) hypertension[ICD10: I10] Diagnosis: Mixed hyperlipidemia[ICD10: E78.2] [facility] CPT-4: 43623 06/17/2016 Plan of Care Planned Activity Notes Codes Status Date Visit Plan: Allergies - chronic - recommended [...] vein specialist. 02/08/2019 Appointment: Leisa Kirkpatrick WPtel: [address] [place], [place] [phone] (30 min) [facility] 02/08/2019 Patient Education: Patient Medication Summary Completed [...] stomach. 02/05/2019 Appointment: Leisa Kirkpatrick WPtel: [phone] [id number] (30 min) Complex 02/05/2019 Patient Education: Patient [...] or concerns. 01/23/2019 Appointment: Leisa Kirkpatrick WPtel: [id number] (30 min) Complex 01/23/2019 Patient Education: Patient Medication Summary Completed 01/23/2019 Visit Plan: pt is on chronic antihypertensive medication - the medication has been adjusted down to attempt to alleviate the low blood pressures. 01/09/2019 Appointment: Leisa Kirkpatrick WPtel: [id number] (30 min) Complex 01/09/2019 Patient Education: Patient [...] acute changes. 10/05/2018 Appointment: Lisseth Greene WPtel: [phone] [phone] [place] (15 min) Moderate 10/05/2018 Patient Education: Patient Medication Summary Completed 10/05/2018 Visit Plan: Diverticulitis - rx for antibiotic sent to pt's pharmacy - pt advised to avoid seeds, nuts, popcorn, or any other food which has been proven to upset the pt's stomach. 08/20/2018 Appointment: Leisa Kirkpatrick WPtel: [id number] (15 min) Moderate 08/20/2018 Patient Education: Patient [...] allergy spray. 07/24/2018 Appointment: Leisa Kirkpatrick WPtel: [id number] (15 min) Moderate 07/24/2018 Patient Education: Patient Medication Summary Completed 07/24/2018 Appointment: Leisa Kirkpatrick WPtel: [id number] (30 min) Complex 05/14/2018 Visit Plan: Shingles [...] considered contagious. 05/07/2018 Appointment: Lisseth Greene WPtel: [id number] [place] (15 min) Moderate 05/07/2018 Patient Education: [...] concerns. 04/20/2018 [facility]ment[id number] ([facility] min) Moderate 04/20/2018 Patient Education: [...] indicated. 04/09/2018 Appointment: [id number] [place] (15 min) Moderate 04/09/2018 Patient Education: Patient Medication Summary Completed 04/09/2018 Patient Education: Patient Medication Summary Completed 04/09/2018 Care Plan: B12 Pending 04/09/2018 Care Plan: Folate Pending 04/09/2018 Care Plan: Vitamin D 25 Oh Pending 04/09/2018 Care Plan: Lipid Pending 04/09/2018 Care Plan: [facility] [id number] Pending 04/09/2018 Visit Plan: Bronchitis - acute [...] acute changes. 12/08/2017 App[facility]ment: [id number] (30 min) [facility] 12/08/2017 Patient Education: Patient Medication Summary Completed [...] changes. 12/01/2017 Appointment: [id number] (15 min) Moderate 12/01/2017 Patient Education: [...] improving. 10/10/2017 App[facility]ment: [id number] (15 min) Moderate 10/10/2017 Patient Education: Patient Medication Summary Completed 10/10/2017 App[facility]ment: [id number] (15 min) Moderate 10/06/2017 Visit Plan: [...] to medications. 09/20/2017 Appointment: Leisa Kirkpatrick WPtel: [address] [place], [place] [id number] (15 min) Moderate 09/20/2017 Patient Education: Patient [...] spray. 09/12/2017 Appointment: [id number] (15 min) Moderate 09/12/2017 Patient Education: Patient Medication Summary Completed 09/12/2017 Patient Education: Obesity Completed 09/12/2017 Visit Plan: Diverticulitis - rx for antibiotic sent to pt's pharmacy - pt advised to avoid seeds, nuts, popcorn, or any other food which has been proven to upset the pt's stomach. 08/18/2017 Appointment: [id number] (30 min) Complex 08/18/2017 Patient Education: [...] allergy spray. 06/12/2017 Appointment: [id number] (10 min) Simple 06/12/2017 Patient Education: Patient Medication Summary Completed 06/12/2017 Visit Plan: Diverticulitis - rx for antibiotic sent to pt's pharmacy - pt advised to avoid seeds, nuts, popcorn, or any other food which has been proven to upset the pt's stomach. 05/04/2017 Appointment: [facility] Kirkpatrick [facility]el[id number] (30 min) Complex 05/04/2017 Patient Education: Patient [...] allergy spray. 04/21/2017 Appointment: [facility]patrick [id number] [place] (15 min) Moderate 04/21/2017 Patient Education: [...] acute changes. 03/03/2017 Appointment: [facility]patrick [id number] (30 min) Complex 03/03/2017 Patient Education: [...] daily. 02/13/2017 Appointment: Leisa Kirkpatrick WPtel: [phone] [id number] (10 min) Simple 02/13/2017 Patient Education: Patient [...] spray. 02/09/2017 Appointment: Leisa Kirkpatrick WPtel: [phone] [id number] (15 min) Moderate 02/09/2017 Patient Education: Patient [...] spray. 12/14/2016 Appointment: [facility]patrick [facility]el[id number] (15 min) Moderate 12/14/2016 Patient Education: [...] not improving. 12/05/2016 Appointment: Leisa Kirkpatrick WPtel: [id number] (30 min) Complex 12/05/2016 Patient Education: Patient [...] acute changes. 09/23/2016 Appointment: Lisseth Greene WPtel: [address] [place], [place] [id number] (30 min) [facility] 09/23/2016 Patient Education: Patient Medication Summary Completed [...] improvement. Allerg ies/asthma - pt sees an photo lab specialist who recently started her on Qvar and dexilant. They are referring her to pulmonology (Dr. Mcconnell) - pt is to notify clinic with any questions or concerns. 07/08/2016 Appointment: Lisseth Greene WPtel: [phone] [id number] [place] [address] (15 min) Moderate 07/08/2016 Patient Education: Patient [...] medications. 06/17/2016 Appointment: [facility]el[id number] New Patient 06/17/2016 Patient Education: Patient [...] show improvement. Allergies/asthma - pt sees an photo lab specialist who recently started her on Qvar [...] US will refer to Dr. Bustos in [place] for varicose veins. . Allergies - chronic [...] treatment for varicose veins with vein specialist. Levocetirizine - try instead of the zyrtec [...]
--- OUTSIDE RECORDS SUMMARY | 2019-03-30 10:23 | XMS REPORT | CCD ---
Author Author Leisa Kirkpatrick MD, [facility] Address [address] [place] [address] Phone Care Team Providers Care Soda Jerker Name Role Phone PP Unavailable CCM Unavailable Summary Purpose Interface Exchange Insurance Providers Payer name Policy type / Coverage type Covered democrat ID Effective Begin Date Effective End Date [facility] [id number] Unknown Family history Father Diagnosis Age At Onset Heart Attack Unknown genetic disease Unknown Skin cancer Unknown Hypertension Unknown Mother Diagnosis Age At Onset Stroke Unknown Daughter Diagnosis Age At Onset Asthma Unknown Arthritis Unknown Social History Social History Element Codes Description Effective Dates Marital status Unknown Lev 10/10/2017 Number of children Unknown 2 06/17/[address]: 577583220 Never smoker 06/17/2016 Alcohol history Unknown occasionally [...] Bactrim DS 800 mg-160 mg tablet RxNorm: 017306 1 Tablet(s) PO BID 02/08/2019 02/17/2019 Active Flagyl 500 mg tablet RxNorm: 678817 1 Tablet(s) PO TID 02/05/2019 02/14/2019 Active clotrimazole 1 % topical cream RxNorm: 069583 1 Application TOP BID 01/23/2019 No Stop Date Active Tamiflu 75 mg capsule RxNorm: 203548 1 Capsule(s) PO daily 01/11/2019 01/20/2019 Inactive Tamiflu 75 mg capsule RxNorm: 765615 1 Capsule(s) PO daily 01/11/2019 01/10/2019 Inactive losartan 25 mg tablet RxNorm: 001560 1 Tablet(s) PO daily 12/24/2018 04/22/2019 Active losartan 25 mg tablet RxNorm: 298857 1 Tablet(s) PO daily 12/24/2018 12/23/2018 Inactive Zithromax Z-Maykel 250 mg tablet RxNorm: 672160 1 Tablet(s) PO UD 10/05/2018 10/09/2018 Inactive prednisone 20 mg tablet RxNorm: 173932 2 Tablet(s) PO daily 10/05/2018 10/09/2018 Inactive Zantac 150 mg tablet RxNorm: 617453 TAKE 1 TABLET BY MOUTH TWICE DAILY 08/22/2018 08/16/2019 Active Generic For:*ZANTAC 150 MG TABLET 08/22/2018 10:42:54 AM lisinopril 10 mg tablet RxNorm: 169561 TAKE 1 TABLET BY MOUTH DAILY 08/22/2018 12/24/2018 Inactive Generic For:ZESTRIL 10 MG TABLET 08/22/2018 10:43:05 AM prednisone 10 mg tablet RxNorm: 198682 Tablet(s) PO 07/24/2018 No Stop Date Active 40,40,30,30,20,20,10,10,5mg every other day x 2 doses Zithromax Z-Maykel 250 mg tablet RxNorm: 600132 1 Tablet(s) PO UD 07/24/2018 10/04/2018 Inactive Protonix 20 mg tablet,delayed release RxNorm: 860351 1 Tablet(s) PO BID 05/23/2018 11/18/2018 Inactive acyclovir 400 mg tablet RxNorm: 766709 2 Tablet(s) PO QID 05/07/2018 05/16/2018 Inactive doxycycline hyclate 100 mg capsule RxNorm: 2639508 1 Capsule(s) PO BID 04/20/2018 04/29/2018 Inactive Bactrim DS 800 mg-160 mg tablet RxNorm: 536189 1 Tablet(s) PO BID 04/16/2018 04/18/2018 Inactive Bactrim DS 800 mg-160 mg tablet RxNorm: 025136 1 Tablet(s) PO BID 04/09/2018 04/15/2018 Inactive lisinopril 10 mg tablet RxNorm: 425529 TAKE 1 TABLET BY MOUTH DAILY 02/21/2018 08/19/2018 Inactive Generic For:ZESTRIL 10 MG TABLET 02/21/2018 11:39:12 AM prednisone 10 mg tablet RxNorm: 853594 Tablet(s) PO 60mg x 2 days, then 40mg x 2 days, then 20mg x 2 days, the 10mg x 2 days, then 5mg every other day x 2 doses 12/08/2017 No Stop Date Active disp qty sufficient doxycycline hyclate 100 mg capsule RxNorm: 7314143 1 Capsule(s) PO BID 12/08/2017 12/17/2017 Inactive albuterol sulfate 2.5 mg/3 mL (0.083 %) solution for nebulization RxNorm: 756834 3 Milliliter(s) INH Q4-6H 12/06/2017 No Stop Date Active prednisone 20 mg tablet RxNorm: 994081 Tablet(s) PO 40mg x 2 days, then 20mg x 2 days, then 10mg x 2 days 12/01/2017 No Stop Date Active Zithromax Z-Maykel 250 mg tablet RxNorm: 044826 1 Tablet(s) PO UD 12/01/2017 04/15/2018 Inactive levocetirizine 5 mg tablet RxNorm: 358228 1 Tablet(s) PO daily 11/13/2017 05/11/2018 Inactive Protonix 20 mg tablet,delayed release RxNorm: 916385 1 Tablet(s) PO BID 11/13/2017 05/11/2018 Inactive Protonix 20 mg tablet,delayed release RxNorm: 782291 1 Tablet(s) PO BID 10/10/2017 11/08/2017 Inactive Tessalon Perles 100 mg capsule RxNorm: 882029 1-2 Capsule(s) PO TID as needed 10/10/2017 10/14/2017 Inactive prednisone 20 mg tablet RxNorm: 054360 Tablet(s) PO 40mg x 2 days, then 20mg x 2 days, then 10mg x 2 days 09/20/2017 11/30/2017 Inactive doxycycline hyclate 100 mg capsule RxNorm: 5384055 1 Capsule(s) PO BID 09/20/2017 09/26/2017 Inactive Zithromax Z-Maykel 250 mg tablet RxNorm: 886426 1 Tablet(s) PO UD 09/12/2017 10/09/2017 Inactive albuterol sulfate 2.5 mg/3 mL (0.083 %) solution for nebulization RxNorm: 144519 3 Milliliter(s) INH Q4-6H 09/12/2017 12/05/2017 Inactive prednisone 20 mg tablet RxNorm: 527703 2 Tablet(s) PO daily 09/12/2017 09/16/2017 Inactive lisinopril 10 mg tablet RxNorm: 780093 1 Tablet(s) PO daily 08/28/2017 02/20/2018 Inactive Zantac 150 mg tablet RxNorm: 163960 1 Tablet(s) PO BID 08/28/2017 08/21/2018 Inactive Cipro 500 mg tablet RxNorm: 048288 1 Tablet(s) PO BID 08/18/2017 08/26/2017 Inactive metronidazole 500 mg tablet RxNorm: 766673 1 Tablet(s) PO TID 08/18/2017 08/26/2017 Inactive prednisone 20 mg tablet RxNorm: 063428 2 Tablet(s) PO BID 06/12/2017 06/16/2017 Inactive Cipro 500 mg tablet RxNorm: 683607 1 Tablet(s) PO BID 05/04/2017 05/13/2017 Inactive metronidazole 500 mg tablet RxNorm: 651630 1 Tablet(s) PO TID 05/04/2017 05/13/2017 Inactive Zantac 150 mg tablet RxNorm: 103768 1 Tablet(s) PO BID 04/27/2017 08/24/2017 Inactive prednisone 20 mg tablet RxNorm: 733517 2 Tablet(s) PO BID start if getting worse 04/21/2017 04/25/2017 Inactive levocetirizine 5 mg tablet RxNorm: 822395 1 Tablet(s) PO daily 04/21/2017 05/20/2017 Inactive prednisone 20 mg tablet RxNorm: 827060 1 Tablet(s) PO BID Start with 1 pill daily and see how effective it is - if still not effective increase to twice a day as discussed 03/03/2017 03/07/2017 Inactive lisinopril 10 mg tablet RxNorm: 241429 1 Tablet(s) PO daily 03/01/2017 08/27/2017 Inactive ciprofloxacin 0.3 % eye drops RxNorm: 982420 2 Drop(s) OPH QID 02/13/2017 02/17/2017 Inactive Zithromax 250 mg tablet RxNorm: 088090 1 Tablet(s) PO daily 02/13/2017 02/15/2017 Inactive Zithromax Z-Maykel 250 mg tablet RxNorm: 535692 1 Tablet(s) PO UD 02/09/2017 02/08/2017 Inactive Zithromax Z-Maykel 250 mg tablet RxNorm: 440537 1 Tablet(s) PO UD 02/09/2017 09/11/2017 Inactive Premarin 0.625 mg/gram vaginal cream RxNorm: 287263 1 Application VAG BIW 12/30/2016 No Stop Date Active Zantac 150 mg tablet RxNorm: 649646 1 Tablet(s) PO BID 12/05/2016 04/03/2017 Inactive prednisone 20 mg tablet RxNorm: 407795 2 Tablet(s) PO daily 12/05/2016 12/09/2016 Inactive Zithromax Z-Maykel 250 mg tablet RxNorm: 609279 Tablet(s) PO UD 12/05/2016 02/08/2017 Inactive lisinopril 10 mg tablet RxNorm: 721397 1 Tablet(s) PO daily 10/31/2016 02/27/2017 Inactive Tessalon Perles 100 mg capsule RxNorm: 445505 2 Capsule(s) PO TID as needed dyspnea 09/23/2016 09/27/2016 Inactive prednisone 20 mg tablet RxNorm: 511157 2 Tablet(s) PO daily 09/23/2016 09/27/2016 Inactive Qvar 80 mcg/actuation Metered Aerosol oral inhaler RxNorm: 895604 1 INH BID started by her event specialist 08/02/2016 09/12/2016 Inactive Zithromax Z-Maykel 250 mg tablet RxNorm: 607096 Tablet(s) PO UD 07/08/2016 12/04/2016 Inactive Tessalon Perles 100 mg capsule RxNorm: 391720 2 Capsule(s) PO TID as needed dyspnea 07/08/2016 07/12/2016 Inactive prednisone 20 mg tablet RxNorm: 268626 1 Tablet(s) PO UD 07/08/2016 09/22/2016 Inactive Premarin 0.625 mg/gram vaginal cream RxNorm: 798690 1 Application VAG BIW 06/21/2016 12/29/2016 Inactive Dulera 200 mcg-5 mcg/actuation HFA aerosol inhaler RxNorm: 6317115 2 INH Q2H 06/17/2016 No Stop Date Active lisinopril 10 mg tablet RxNorm: 934280 1 Tablet(s) PO daily 06/17/2016 10/14/2016 Inactive olopatadine 0.1 % eye drops RxNorm: 4638302 Drop(s) OPH PRN No Start Date Active ProAir HFA 90 mcg/actuation aerosol inhaler RxNorm: 459172 2 Puff(s) INH PRN No Start Date Active Zyrtec 10 mg capsule RxNorm: 6807427 1 Capsule(s) PO daily No Start Date Active lutein 20 mg capsule RxNorm: 959184 1 Capsule(s) PO daily No Start Date Active Garrison Oil 1,000 mg capsule RxNorm: 1 Capsule(s) PO daily No Start Date Active montelukast 10 mg tablet RxNorm: 581773 1 Tablet(s) PO daily No Start Date Active Vitamin D3 1,000 unit capsule RxNorm: 852542 Capsule(s) PO No Start Date Active B12 sublingual RxNorm: 96150 sublingual No Start Date Active pravastatin 20 mg tablet RxNorm: 377322 1 Tablet(s) PO daily No Start Date Active zinc picolinate 50 mg tablet RxNorm: 1 Tablet(s) PO daily No Start Date Active chromium picolinate 200 mcg capsule RxNorm: 596313 1 Capsule(s) PO daily No Start Date Active magnesium RxNorm: 1 PO BID No Start Date Active premarin 0.5% Vaginal cream RxNorm: 1 VAG daily No Start Date Active Xolair 150 mg subcutaneous solution RxNorm: 6828663 1 SQ monthly No Start Date Active folate #7-pc dha-pe qoy-[id number]-IF-multivitamin #46 oral RxNorm: oral No Start Date Active prednisone RxNorm: 8640 miscellaneous No Start Date Active Dulera 200 mcg-5 mcg/actuation HFA aerosol inhaler RxNorm: 4087493 2 INH Q4H No Start Date 06/16/2016 Inactive lisinopril 10 mg tablet RxNorm: 093740 1 Tablet(s) PO daily No Start Date [...] Item Code Result Date C A/B FLU [id number] Influenza A Scr TNP:Duplicate Order 07/25/2018 C A/B FLU [id number] Influenza B Scr TNP:Duplicate Order 07/25/2018 C A/B FLU [id number] Influenza Intrp B AG:PRID:PT:NOSE:NOM:IF TNP:Duplicate Order 07/25/2018 C A/B FLU [id number] IC OK? TNP:Duplicate Order 07/25/2018 C RAP A SC [id number] Strep A TNP:Lab Request 02/09/2017 C RAP A SC [id number] IC OK? TNP:Lab Request 02/09/2017 Review of [...] 1: 122/76 Code: 8480-6 BMI: 28.8 Code: 99296-0 Heart Rate 1: 94 bpm Height: 5'4" SpO2: 98% Weight: 168 lbs 02/05/2019 Blood Pressure 1: 126/70 Code: 8480-6 BMI: 28.5 Code: 05561-5 Heart Rate 1: 90 bpm Height: 5'4" SpO2: 98% Weight: 166 lbs 01/23/2019 Blood Pressure 1: 122/64 Code: 8480-6 BMI: 28.8 Code: 48310-9 Heart Rate 1: 105 bpm Height: 5'4" SpO2: 98% Weight: 168 lbs 01/09/2019 Blood Pressure 1: 134/80 Code: 8480-6 BMI: 28.8 Code: 43852-3 Heart Rate 1: 98 bpm Height: 5'4" SpO2: 100% Weight: 168 lbs 10/05/2018 Blood Pressure 1: 150/84 Code: 8480-6 BMI: 29.9 Code: 46760-7 Heart Rate 1: 78 bpm Height: 5'4" SpO2: 91% Weight: 174 lbs 08/20/2018 Blood Pressure 1: 142/86 Code: 8480-6 BMI: 29.9 Code: 61652-1 Heart Rate 1: 79 bpm Height: 5'4" SpO2: 98% Weight: 174 lbs 07/24/2018 Blood Pressure 1: 150/84 Code: 8480-6 BMI: 29.9 Code: 49518-4 Heart Rate 1: 116 bpm Height: 5'4" SpO2: 96% Temperature: 37.0 (C) / 98.6 (F) Weight: 174 lbs 05/07/2018 Blood Pressure 1: 130/80 Code: 8480-6 BMI: 29.9 Code: 35294-5 Heart Rate 1: 93 bpm Height: 5'4" SpO2: 95% Weight: 174 lbs 04/20/2018 Blood Pressure 1: 134/70 Code: 8480-6 Heart Rate 1: 86 bpm Height: SpO2: 98% Weight: 04/09/2018 Blood Pressure 1: 132/76 Code: 8480-6 BMI: 29.5 Code: 43782-2 Heart Rate 1: 80 bpm Height: 5'4" SpO2: 98% Weight: 172 lbs 12/08/2017 Blood Pressure 1: 148/76 Code: 8480-6 BMI: 29.9 Code: 53339-1 Heart Rate 1: 97 bpm Height: 5'4" SpO2: 97% Weight: 174 lbs 12/01/2017 Blood Pressure 1: 124/74 Code: 8480-6 BMI: 29.9 Code: 27979-6 Heart Rate 1: 110 bpm Height: 5'4" SpO2: 97% Temperature: 37.4 (C) / 99.4 (F) Weight: 174 lbs 10/10/2017 Blood Pressure 1: 128/80 Code: 8480-6 BMI: 29.8 Code: 48945-6 Heart Rate 1: 91 bpm Height: 5'4" SpO2: 98% Temperature: 36.5 (C) / 97.7 (F) Weight: 173 lbs 8 oz 09/20/2017 Blood Pressure 1: 152/88 Code: 8480-6 BMI: 29.9 Code: 43684-2 Heart Rate 1: 87 bpm Height: 5'4" SpO2: 96% Weight: 174 lbs 09/12/2017 Blood Pressure 1: 134/74 Code: 8480-6 BMI: 29.9 Code: 79989-8 Heart Rate 1: 90 bpm Height: 5'4" SpO2: 96% Weight: 174 lbs 08/18/2017 Blood Pressure 1: 128/68 Code: 8480-6 Heart Rate 1: 88 bpm Height: SpO2: 97% Weight: 06/12/2017 Blood Pressure 1: 130/70 Code: 8480-6 BMI: 29.2 Code: 48893-5 Heart Rate 1: 94 bpm Height: 5'4" SpO2: 95% Weight: 170 lbs 05/04/2017 Blood Pressure 1: 138/80 Code: 8480-6 BMI: 29.9 Code: 72021-1 Heart Rate 1: 84 bpm Height: 5'4" SpO2: 97% Weight: 174 lbs 04/21/2017 Blood Pressure 1: 130/72 Code: 8480-6 BMI: 29.9 Code: 93754-6 Heart Rate 1: 90 bpm Height: 5'4" SpO2: 96% Weight: 174 lbs 03/03/2017 Blood Pressure 1: 136/78 Code: 8480-6 BMI: 29.9 Code: 59328-1 Heart Rate 1: 91 bpm Height: 5'4" SpO2: 96% Weight: 174 lbs 02/13/2017 Blood Pressure 1: 116/74 Code: 8480-6 BMI: 29.2 Code: 37709-9 Heart Rate 1: 91 bpm Height: 5'4" SpO2: 94% Weight: 170 lbs 02/09/2017 Blood Pressure 1: 120/72 Code: 8480-6 BMI: 29.0 Code: 97547-0 Heart Rate 1: 100 bpm Height: 5'4" SpO2: 97% Temperature: 37.4 (C) / 99.3 (F) Weight: 169 lbs 12/14/2016 Blood Pressure 1: 130/72 Code: 8480-6 BMI: 29.5 Code: 88724-4 Heart Rate 1: 100 bpm Height: 5'4" SpO2: 95% Weight: 172 lbs 12/05/2016 Blood Pressure 1: 136/78 Code: 8480-6 BMI: 29.2 Code: 37766-5 Heart Rate 1: 117 bpm Height: 5'4" SpO2: 97% Weight: 170 lbs 09/23/2016 Blood Pressure 1: 130/74 Code: 8480-6 BMI: 30.2 Code: 34228-5 Heart Rate 1: 102 bpm Height: 5'4" SpO2: 94% Weight: 176 lbs 09/14/2016 Blood Pressure 1: 128/74 Code: 8480-6 BMI: 29.4 Code: 30704-1 Heart Rate 1: 90 bpm Height: 5'4" SpO2: 97% Weight: 171 lbs 07/08/2016 Blood Pressure 1: 118/64 Code: 8480-6 BMI: 28.8 Code: 59688-7 Heart Rate 1: 115 bpm Height: 5'4" SpO2: 97% Weight: 168 lbs 06/17/2016 Blood Pressure 1: 144/86 Code: 8480-6 BMI: 29.5 Code: 90469-2 Heart Rate 1: 94 bpm Height: 5'4" [...] Other chronic sinusitis[ICD10: J32.8] Leisa Keys MD, [facility] CPT- 4: 74428 02/08/2019 21837 EST. PATIENT, LEVEL III Diagnosis: Left lower quadrant pain[ICD10: R10.32] Diagnosis: Diarrhea, unspecified[ICD10: R19.7] [facility] CPT- 4: 72057 02/05/2019 23935 EST. PATIENT, LEVEL III Diagnosis: Tinea unguium[ICD10: B35.1] Diagnosis: Localized edema[ICD10: R60.0] Leisa Keys MD, [facility] CPT-4: 95701 01/23/2019 90673 EST. PATIENT, LEVEL III Diagnosis: Essential (primary) hypertension[ICD10: I10] Diagnosis: Mixed hyperlipidemia[ICD10: E78.2] Leisa Keys MD, [facility] CPT-4: 71264 01/09/2019 (22685) 51740 EST. PATIENT, LEVEL III Diagnosis: Cough[ICD10: R05] Diagnosis: Moderate persistent asthma with (acute) exacerbation[ICD10: J45.41] Lisseth Keys MD, [facility] CPT-4: 83343 10/05/2018 10238 EST. PATIENT, LEVEL III Diagnosis: Diverticulitis of large intestine without perforation or abscess with bleeding[ICD10: K57.33] Leisa Keys MD, [facility] CPT-4: 54380 08/20/2018 18110 EST. PATIENT, LEVEL IV Diagnosis: Other acute sinusitis[ICD10: J01.80] Diagnosis: Other allergic rhinitis[ICD10: J30.89] Leisa Keys MD, [facility] CPT- 4: 97034 07/24/2018 07518 EST. PATIENT, LEVEL III Diagnosis: Zoster without complications[ICD10: B02.9] Lisseth Keys MD, [facility] CPT-4: 53846 05/07/2018 71935 EST. PATIENT, LEVEL IV Diagnosis: Cough[ICD10: R05] Diagnosis: Fever presenting with conditions classified elsewhere[ICD10: R50.81] Leisa Keys MD, [facility] CPT-4: 89738 04/20/2018 22463 EST. PATIENT, LEVEL III Diagnosis: Other fatigue[ICD10: R53.83] Diagnosis: Vitamin D deficiency, unspecified[ICD10: E55.9] Diagnosis: Paresthesia of skin[ICD10: R20.2] Diagnosis: Mixed hyperlipidemia[ICD10: E78.2] Diagnosis: Cellulitis of left toe[ICD10: L03.032] Diagnosis: Essential (primary) hypertension[ICD10: I10] Leisa Keys MD, [facility] CPT-4: 58277 04/09/2018 00673 EST. PATIENT, LEVEL IV Diagnosis: Acute bronchitis due to other specified organisms[ICD10: J20.8] Diagnosis: Moderate persistent asthma with (acute) exacerbation[ICD10: J45.41] Leisa Keys MD, [facility] CPT-4: 19344 12/08/2017 78637 EST. PATIENT, LEVEL IV Diagnosis: Other acute sinusitis[ICD10: J01.80] Diagnosis: Other allergic rhinitis[ICD10: J30.89] Diagnosis: Moderate persistent asthma with (acute) exacerbation[ICD10: J45.41] Leisa Keys MD [facility] CPT-4: 43093 12/01/2017 10728 EST. PATIENT, LEVEL IV Diagnosis: Moderate persistent asthma with (acute) exacerbation[ICD10: J45.41] Diagnosis: Other allergic rhinitis[ICD10: J30.89] Diagnosis: Gastro-esophageal reflux disease without esophagitis[ICD10: K21.9] Leisa Keys MD [facility] CPT-4: 15158 10/10/2017 75373 EST. PATIENT, LEVEL III Diagnosis: Moderate persistent asthma with (acute) exacerbation[ICD10: J45.41] Diagnosis: Other allergic rhinitis[ICD10: J30.89] Diagnosis: Mixed hyperlipidemia[ICD10: E78.2] Leisa Keys MD [facility] CPT-4: 18199 09/20/2017 79026 EST. PATIENT, LEVEL IV Diagnosis: Acute laryngopharyngitis[ICD10: J06.0] Diagnosis: Other acute sinusitis[ICD10: J01.80] Diagnosis: Other allergic rhinitis[ICD10: J30.89] Leisa Keys MD [facility] CPT- 4: 27244 09/12/2017 46365 EST. PATIENT, LEVEL IV Diagnosis: Diverticulitis of large intestine without perforation or abscess with bleeding[ICD10: K57.33] Leisa Keys MD [facility] CPT-4: 83510 08/18/2017 42264 EST. PATIENT, LEVEL IV Diagnosis: Other allergic rhinitis[ICD10: J30.89] Diagnosis: Moderate persistent asthma with (acute) exacerbation[ICD10: J45.41] Leisa Keys MD [facility] CPT-4: 32011 06/12/2017 01300 EST. PATIENT, LEVEL IV Diagnosis: Diverticulitis of large intestine without perforation or abscess with bleeding[ICD10: K57.33] Leisa Keys MD [facility] CPT-4: 07778 05/04/2017 71741 EST. PATIENT, LEVEL IV Diagnosis: Other allergic rhinitis[ICD10: J30.89] Diagnosis: Moderate persistent asthma with (acute) exacerbation[ICD10: J45.41] Leisa Keys MD, [facility] CPT-4: 13528 04/21/2017 48620 EST. PATIENT, LEVEL III Diagnosis: Moderate persistent asthma with (acute) exacerbation[ICD10: J45.41] Leisa Keys MD, [facility] CPT-4: 68038 03/03/2017 86369 EST. PATIENT, LEVEL IV Diagnosis: Moderate persistent asthma, uncomplicated[ICD10: J45.40] Diagnosis: Other mucopurulent conjunctivitis, left eye[ICD10: H10.022] Diagnosis: Acute laryngopharyngitis[ICD10: J06.0] Leisa Keys MD, [facility] CPT- 4: 93927 02/13/2017 94130 EST. PATIENT, LEVEL IV Diagnosis: Acute laryngopharyngitis[ICD10: J06.0] Diagnosis: Other acute sinusitis[ICD10: J01.80] Diagnosis: Other allergic rhinitis[ICD10: J30.89] Leisa Keys MD, [facility] CPT- 4: 38651 02/09/2017 84761 EST. PATIENT, LEVEL III Diagnosis: Other allergic rhinitis[ICD10: J30.89] Diagnosis: Moderate persistent asthma, uncomplicated[ICD10: J45.40] Leisa Keys MD, [facility] CPT-4: 94778 12/14/2016 25591 EST. PATIENT, LEVEL III Diagnosis: Other acute sinusitis[ICD10: J01.80] Diagnosis: Other allergic rhinitis[ICD10: J30.89] Diagnosis: Moderate persistent asthma, uncomplicated[ICD10: J45.40] Diagnosis: Gastro-esophageal reflux disease without esophagitis[ICD10: K21.9] Leisa Keys MD, [facility] CPT-4: 19861 12/05/2016 97735 EST. PATIENT, LEVEL IV Diagnosis: Other allergic rhinitis[ICD10: J30.89] Diagnosis: Moderate persistent asthma, uncomplicated[ICD10: J45.40] Diagnosis: Cough[ICD10: R05] Leisa Keys MD, [facility] CPT-4: 61337 09/23/2016 43035 EST. PATIENT, LEVEL IV Diagnosis: Moderate persistent asthma, uncomplicated[ICD10: J45.40] Diagnosis: Other allergic rhinitis[ICD10: J30.89] [facility] CPT- 4: 37783 09/14/2016 28585 EST. PATIENT, LEVEL IV Diagnosis: Other acute sinusitis[ICD10: J01.80] [facility] CPT- 4: 31110 07/08/2016 (13953) PREV VISIT NEW AGE 40-64 Diagnosis: Encounter for gynecological examination (general) (routine) without abnormal findings[ICD10: Z01.419] Diagnosis: Moderate persistent asthma, uncomplicated[ICD10: J45.40] Diagnosis: Essential (primary) hypertension[ICD10: I10] Diagnosis: Mixed hyperlipidemia[ICD10: E78.2] [facility] CPT-4: 48966 06/17/2016 Plan of Care Planned Activity Notes [...] vein specialist. 02/08/2019 Appointment: Leisa Kirkpatrick WPtel: [address] [place], [place] [phone] (30 min) [facility] 02/08/2019 Patient Education: Patient Medication Summary Completed [...] or concerns. 01/23/2019 Appointment: Leisa Kirkpatrick WPtel: [phone] (30 min) Complex 01/23/2019 Patient Education: Patient Medication Summary Completed 01/23/2019 Visit Plan: pt is on chronic antihypertensive medication - the medication has been adjusted down to attempt to alleviate the low blood pressures. 01/09/2019 Appointment: Leisa Kirkpatrick WPtel: [facility]3 [phone] (30 min) [...] acute changes. 10/05/2018 Appointment: Lisseth Greene WPtel: [phone] [phone] [place] (15 min) Moderate 10/05/2018 Patient Education: Patient Medication Summary Completed 10/05/2018 Visit Plan: Diverticulitis - rx for antibiotic sent to pt's pharmacy - pt advised to avoid seeds, nuts, popcorn, or any other food which has been proven to upset the pt's stomach. 08/20/2018 Appointment: Leisa Kirkpatrick WPtel: [facility]6 [id number] (15 min) Moderate 08/20/2018 Patient Education: [...] allergy spray. 07/24/2018 Appointment: Leisa Kirkpatrick WPtel: [facility]3 [phone] (15 min) Moderate 07/24/2018 Patient Education: Patient Medication Summary Completed 07/24/2018 Appointment: Leisa Kirkpatrick WPtel: [phone] (30 min) Complex 05/14/2018 Visit Plan: Shingles [...] considered contagious. 05/07/2018 Appointment: Lisseth Greene WPtel: [phone] [place] (15 [...] concerns. 04/20/2018 [phone] [facility] ([facility] Moderate 04/20/2018 Patient Education: [...] indicated. 04/09/2018 Appointment: [facility] [phone] [facility] [place] (15 min) Moderate 04/09/2018 Patient Education: Patient Medication Summary Completed 04/09/2018 Patient Education: Patient Medication Summary Completed 04/09/2018 Care Plan: B12 Pending 04/09/2018 Care Plan: Folate Pending 04/09/2018 Care Plan: Vitamin D 25 Oh Pending 04/09/2018 Care Plan: Lipid Pending 04/09/2018 Care Plan: [facility] [address]-6 Pending 04/09/2018 Visit Plan: Bronchitis - acute [...] acute changes. 12/08/2017 Appointment: [facility] [phone] [facility] ([facility] 12/08/2017 Patient Education: Patient Medication Summary Completed [...] changes. 12/01/2017 Appointment: [facility] [phone] [facility] ([facility] min) Moderate 12/01/2017 Patient Education: [...] improving. 10/10/2017 App[facility]ment: [facility] [phone] [facility] ([facility] min) Moderate 10/10/2017 Patient Education: Patient Medication Summary Completed 10/10/2017 App[facility]ment: [facility] [phone] [facility] ([facility] min) Moderate 10/06/2017 Visit Plan: [...] to medications. 09/20/2017 Appointment: Leisa Kirkpatrick WPtel: [address] [place], [place] [id number] (15 min) Moderate 09/20/2017 Patient Education: Patient [...] spray. 09/12/2017 App[facility]ment: [facility] [phone] [facility] ([facility] min) Moderate 09/12/2017 Patient Education: Patient Medication Summary Completed 09/12/2017 Patient Education: Obesity Completed 09/12/2017 Visit Plan: Diverticulitis - rx for antibiotic sent to pt's pharmacy - pt advised to avoid seeds, nuts, popcorn, or any other food which has been proven to upset the pt's stomach. 08/18/2017 App[facility]ment: [facility] [phone] [phone] ([facility]) Complex 08/18/2017 Patient Education: [...] allergy spray. 06/12/2017 Appointment: [facility] [phone] [phone] (10 min) Simple 06/12/2017 Patient Education: Patient Medication Summary Completed 06/12/2017 Visit Plan: Diverticulitis - rx for antibiotic sent to pt's pharmacy - pt advised to avoid seeds, nuts, popcorn, or any other food which has been proven to upset the pt's stomach. 05/04/2017 App[id number] ([facility] 05/04/2017 Patient Education: [...] spray. 04/21/2017 App[facility]ment: [id number] [place] (15 min) Moderate 04/21/2017 Patient [...] acute changes. 03/03/2017 [facility]ment[id number] ([facility] Complex 03/03/2017 Patient [...] daily. 02/13/2017 Appointment: Leisa Kirkpatrick WPtel: [phone] [id number] (10 min) Simple 02/13/2017 Patient Education: Patient [...] spray. 02/09/2017 Appointment: Leisa Kirkpatrick WPtel: [phone] [id number] (15 min) Moderate 02/09/2017 Patient Education: Patient [...] spray. 12/14/2016 App[facility]ment: [id number] ([facility]) Moderate 12/14/2016 Patient [...] not improving. 12/05/2016 Appointment: Leisa Kirkpatrick WPtel: [id number] (30 min) Complex 12/05/2016 Patient Education: Patient [...] acute changes. 09/23/2016 Appointment: Lisseth Greene WPtel: [address] [place], [place] [id number] (30 min) [facility] 09/23/2016 Patient Education: Patient Medication Summary Completed [...] improvement. Allerg ies/asthma - pt sees an event specialist who recently started her on Qvar and dexilant. They are referring her to pulmonology (Dr. Mcconnell) - pt is to notify clinic with any questions or concerns. 07/08/2016 Appointment: Lisseth Greene WPtel: [phone] [id number] [place] [address] (15 min) Moderate 07/08/2016 Patient Education: Patient [...] to medications. 06/17/2016 Appointment: Liss[facility] Greene [facility]el[id number] [facility] 06/17/2016 Patient Education: Patient Medication Summary Completed 06/17/2016 Care Plan: PAP Pending 06/17/2016 Instructions Comment . URI - Pt advised to increase [...] spray in the nasal steroid allergy spray. will send bactrim to start over the weekend if you ankle gets any worse called out the gentamycin rinse to [facility] take aleve 1 pill twice a day x 5 days - if your ankle is no better on Monday then we will order a US will refer to Dr. Bustos in [place] for varicose veins. . Allergies - chronic [...] treatment for varicose veins with vein specialist. probiotic and salt water gargles 3 times [...] show improvement. Allergies/asthma - pt sees an event specialist who recently started her on Qvar and dexilant. They are referring her to pulmonology (Dr. Mcconnell) - pt is to notify clinic with any questions or concerns. . URI - Pt advised [...] to assure normal liver response to medications. Start the flagyl you have at home [...] if the symptoms are not improving. . Fever, fatigue - pt is to [...] spray in the nasal steroid allergy spray. stop pravastatin x 3 weeks cut losartan in half . pt is on chronic antihypertensive medication - the medication has been adjusted down to attempt to alleviate the low blood pressures. . Asthma Exacerbation - Asthma is a [...]
--- OUTSIDE RECORDS SUMMARY | 2019-03-30 10:26 | XMS REPORT | CCD ---
Author Author Leisa Kirkpatrick MD, [facility] Address [address] [place] [address] Phone Care Team Providers Care Photograph Tinter Name Role Phone PP Unavailable CCM Unavailable Summary Purpose Interface Exchange Insurance Providers Payer name Policy type / Coverage type Covered libertarian ID Effective Begin Date Effective End Date [facility] [id number] Unknown Family history Father Diagnosis Age At Onset Heart Attack Unknown genetic disease Unknown Skin cancer Unknown Hypertension Unknown Mother Diagnosis Age At Onset Stroke Unknown Daughter Diagnosis Age At Onset Asthma Unknown Arthritis Unknown Social History Social History Element Codes Description Effective Dates Marital status Unknown Lev 10/10/2017 Number of children Unknown 2 06/17/[address]: 850299073 Never smoker 06/17/2016 Alcohol history Unknown occasionally drinks alcohol 06/17/2016 Allergies, Adverse Reactions, Alerts Substance Reaction Codes Entered Date Inactivated Date Status ceclor RxNorm: 2176 06/17/2016 No Inactive Date Active CODEINE RxNorm: 2670 06/17/2016 No Inactive Date Active Past Medical History Illness Codes Condition Status Onset Date Resolved Date Diarrhea, unspecified ICD- 9: 787.91 ICD-10: R19.7 [...] 562.13 ICD-10: K57.33 Active 05/04/2017 Unknown Other acute sinusitis ICD- 9: 461.8 ICD-10: J01.80 Active 07/07/2016 Unknown Other allergic rhinitis ICD-9: 477.8 ICD-10: J30.89 Active 09/22/2016 Unknown Other fatigue ICD-9: 780.79 ICD-10: R53.83 [...] Problems Condition Codes Effective Dates Condition Status Diarrhea, unspecified ICD- 9: 787.91 ICD-10: R19.7 [...] ICD-9: 562.13 ICD-10: K57.33 05/04/2017 Active Other acute sinusitis ICD- 9: 461.8 ICD-10: J01.80 07/07/2016 Active Other allergic rhinitis ICD-9: 477.8 ICD-10: J30.89 09/22/2016 Active Other fatigue ICD-9: 780.79 ICD-10: R53.83 [...] Start Date Stop Date Status Fill Instructions Flagyl 500 mg tablet RxNorm: 502492 1 Tablet(s) PO TID 02/05/2019 02/14/2019 Active clotrimazole 1 % topical cream RxNorm: 496947 1 Application TOP BID 01/23/2019 No Stop Date Active Tamiflu 75 mg capsule RxNorm: 827921 1 Capsule(s) PO daily 01/11/2019 01/20/2019 Inactive Tamiflu 75 mg capsule RxNorm: 401385 1 Capsule(s) PO daily 01/11/2019 01/10/2019 Inactive losartan 25 mg tablet RxNorm: 654051 1 Tablet(s) PO daily 12/24/2018 04/22/2019 Active losartan 25 mg tablet RxNorm: 072839 1 Tablet(s) PO daily 12/24/2018 12/23/2018 Inactive Zithromax Z-Maykel 250 mg tablet RxNorm: 148316 1 Tablet(s) PO UD 10/05/2018 10/09/2018 Inactive prednisone 20 mg tablet RxNorm: 622214 2 Tablet(s) PO daily 10/05/2018 10/09/2018 Inactive Zantac 150 mg tablet RxNorm: 986582 TAKE 1 TABLET BY MOUTH TWICE DAILY 08/22/2018 08/16/2019 Active Generic For:*ZANTAC 150 MG TABLET 08/22/2018 10:42:54 AM lisinopril 10 mg tablet RxNorm: 553400 TAKE 1 TABLET BY MOUTH DAILY 08/22/2018 12/24/2018 Inactive Generic For:ZESTRIL 10 MG TABLET 08/22/2018 10:43:05 AM prednisone 10 mg tablet RxNorm: 663824 Tablet(s) PO 07/24/2018 No Stop Date Active 40,40,30,30,20,20,10,10,5mg every other day x 2 doses Zithromax Z-Mayekl 250 mg tablet RxNorm: 417797 1 Tablet(s) PO UD 07/24/2018 10/04/2018 Inactive Protonix 20 mg tablet,delayed release RxNorm: 252437 1 Tablet(s) PO BID 05/23/2018 11/18/2018 Inactive acyclovir 400 mg tablet RxNorm: 636891 2 Tablet(s) PO QID 05/07/2018 05/16/2018 Inactive doxycycline hyclate 100 mg capsule RxNorm: 5048084 1 Capsule(s) PO BID 04/20/2018 04/29/2018 Inactive Bactrim DS 800 mg-160 mg tablet RxNorm: 610515 1 Tablet(s) PO BID 04/16/2018 04/18/2018 Inactive Bactrim DS 800 mg-160 mg tablet RxNorm: 170129 1 Tablet(s) PO BID 04/09/2018 04/15/2018 Inactive lisinopril 10 mg tablet RxNorm: 102409 TAKE 1 TABLET BY MOUTH DAILY 02/21/2018 08/19/2018 Inactive Generic For:ZESTRIL 10 MG TABLET 02/21/2018 11:39:12 AM prednisone 10 mg tablet RxNorm: 505446 Tablet(s) PO 60mg x 2 days, then 40mg x 2 days, then 20mg x 2 days, the 10mg x 2 days, then 5mg every other day x 2 doses 12/08/2017 No Stop Date Active disp qty sufficient doxycycline hyclate 100 mg capsule RxNorm: 1425720 1 Capsule(s) PO BID 12/08/2017 12/17/2017 Inactive albuterol sulfate 2.5 mg/3 mL (0.083 %) solution for nebulization RxNorm: 541556 3 Milliliter(s) INH Q4-6H 12/06/2017 No Stop Date Active prednisone 20 mg tablet RxNorm: 433269 Tablet(s) PO 40mg x 2 days, then 20mg x 2 days, then 10mg x 2 days 12/01/2017 No Stop Date Active Zithromax Z-Maykel 250 mg tablet RxNorm: 554383 1 Tablet(s) PO UD 12/01/2017 04/15/2018 Inactive levocetirizine 5 mg tablet RxNorm: 667661 1 Tablet(s) PO daily 11/13/2017 05/11/2018 Inactive Protonix 20 mg tablet,delayed release RxNorm: 591027 1 Tablet(s) PO BID 11/13/2017 05/11/2018 Inactive Protonix 20 mg tablet,delayed release RxNorm: 588217 1 Tablet(s) PO BID 10/10/2017 11/08/2017 Inactive Tessalon Perles 100 mg capsule RxNorm: 969388 1-2 Capsule(s) PO TID as needed 10/10/2017 10/14/2017 Inactive prednisone 20 mg tablet RxNorm: 080070 Tablet(s) PO 40mg x 2 days, then 20mg x 2 days, then 10mg x 2 days 09/20/2017 11/30/2017 Inactive doxycycline hyclate 100 mg capsule RxNorm: 0095452 1 Capsule(s) PO BID 09/20/2017 09/26/2017 Inactive Zithromax Z-Maykel 250 mg tablet RxNorm: 869114 1 Tablet(s) PO UD 09/12/2017 10/09/2017 Inactive albuterol sulfate 2.5 mg/3 mL (0.083 %) solution for nebulization RxNorm: 109722 3 Milliliter(s) INH Q4-6H 09/12/2017 12/05/2017 Inactive prednisone 20 mg tablet RxNorm: 960387 2 Tablet(s) PO daily 09/12/2017 09/16/2017 Inactive lisinopril 10 mg tablet RxNorm: 476085 1 Tablet(s) PO daily 08/28/2017 02/20/2018 Inactive Zantac 150 mg tablet RxNorm: 578056 1 Tablet(s) PO BID 08/28/2017 08/21/2018 Inactive Cipro 500 mg tablet RxNorm: 407027 1 Tablet(s) PO BID 08/18/2017 08/26/2017 Inactive metronidazole 500 mg tablet RxNorm: 080057 1 Tablet(s) PO TID 08/18/2017 08/26/2017 Inactive prednisone 20 mg tablet RxNorm: 713761 2 Tablet(s) PO BID 06/12/2017 06/16/2017 Inactive Cipro 500 mg tablet RxNorm: 125684 1 Tablet(s) PO BID 05/04/2017 05/13/2017 Inactive metronidazole 500 mg tablet RxNorm: 528858 1 Tablet(s) PO TID 05/04/2017 05/13/2017 Inactive Zantac 150 mg tablet RxNorm: 104515 1 Tablet(s) PO BID 04/27/2017 08/24/2017 Inactive prednisone 20 mg tablet RxNorm: 831800 2 Tablet(s) PO BID start if getting worse 04/21/2017 04/25/2017 Inactive levocetirizine 5 mg tablet RxNorm: 035975 1 Tablet(s) PO daily 04/21/2017 05/20/2017 Inactive prednisone 20 mg tablet RxNorm: 554577 1 Tablet(s) PO BID Start with 1 pill daily and see how effective it is - if still not effective increase to twice a day as discussed 03/03/2017 03/07/2017 Inactive lisinopril 10 mg tablet RxNorm: 081319 1 Tablet(s) PO daily 03/01/2017 08/27/2017 Inactive ciprofloxacin 0.3 % eye drops RxNorm: 688369 2 Drop(s) OPH QID 02/13/2017 02/17/2017 Inactive Zithromax 250 mg tablet RxNorm: 505241 1 Tablet(s) PO daily 02/13/2017 02/15/2017 Inactive Zithromax Z-Maykel 250 mg tablet RxNorm: 679212 1 Tablet(s) PO UD 02/09/2017 02/08/2017 Inactive Zithromax Z-Maykel 250 mg tablet RxNorm: 438802 1 Tablet(s) PO UD 02/09/2017 09/11/2017 Inactive Premarin 0.625 mg/gram vaginal cream RxNorm: 478212 1 Application VAG BIW 12/30/2016 No Stop Date Active Zantac 150 mg tablet RxNorm: 869382 1 Tablet(s) PO BID 12/05/2016 04/03/2017 Inactive prednisone 20 mg tablet RxNorm: 944032 2 Tablet(s) PO daily 12/05/2016 12/09/2016 Inactive Zithromax Z-Maykel 250 mg tablet RxNorm: 730087 Tablet(s) PO UD 12/05/2016 02/08/2017 Inactive lisinopril 10 mg tablet RxNorm: 758485 1 Tablet(s) PO daily 10/31/2016 02/27/2017 Inactive Tessalon Perles 100 mg capsule RxNorm: 030959 2 Capsule(s) PO TID as needed dyspnea 09/23/2016 09/27/2016 Inactive prednisone 20 mg tablet RxNorm: 410981 2 Tablet(s) PO daily 09/23/2016 09/27/2016 Inactive Qvar 80 mcg/actuation Metered Aerosol oral inhaler RxNorm: 142269 1 INH BID started by her nanofabrication specialist 08/02/2016 09/12/2016 Inactive Zithromax Z-Maykel 250 mg tablet RxNorm: 492165 Tablet(s) PO UD 07/08/2016 12/04/2016 Inactive Tessalon Perles 100 mg capsule RxNorm: 650206 2 Capsule(s) PO TID as needed dyspnea 07/08/2016 07/12/2016 Inactive prednisone 20 mg tablet RxNorm: 160884 1 Tablet(s) PO UD 07/08/2016 09/22/2016 Inactive Premarin 0.625 mg/gram vaginal cream RxNorm: 551764 1 Application VAG BIW 06/21/2016 12/29/2016 Inactive Dulera 200 mcg-5 mcg/actuation HFA aerosol inhaler RxNorm: 7249871 2 INH Q2H 06/17/2016 No Stop Date Active lisinopril 10 mg tablet RxNorm: 950016 1 Tablet(s) PO daily 06/17/2016 10/14/2016 Inactive olopatadine 0.1 % eye drops RxNorm: 3858327 Drop(s) OPH PRN No Start Date Active ProAir HFA 90 mcg/actuation aerosol inhaler RxNorm: 499336 2 Puff(s) INH PRN No Start Date Active Zyrtec 10 mg capsule RxNorm: 1876087 1 Capsule(s) PO daily No Start Date Active lutein 20 mg capsule RxNorm: 612133 1 Capsule(s) PO daily No Start Date Active [place] Oil 1,000 mg capsule RxNorm: 1 Capsule(s) PO daily No Start Date Active montelukast 10 mg tablet RxNorm: 961554 1 Tablet(s) PO daily No Start Date Active Vitamin D3 1,000 unit capsule RxNorm: 021822 Capsule(s) PO No Start Date Active B12 sublingual RxNorm: 30975 sublingual No Start Date Active pravastatin 20 mg tablet RxNorm: 073115 1 Tablet(s) PO daily No Start Date Active zinc picolinate 50 mg tablet RxNorm: 1 Tablet(s) PO daily No Start Date Active chromium picolinate 200 mcg capsule RxNorm: 294770 1 Capsule(s) PO daily No Start Date Active magnesium RxNorm: 1 PO BID No Start Date Active premarin 0.5% Vaginal cream RxNorm: 1 VAG daily No Start Date Active Xolair 150 mg subcutaneous solution RxNorm: 9062520 1 SQ monthly No Start Date Active folate #7-pc dha-pe [id number]-slcbti-IF-multivitamin #46 oral RxNorm: oral No Start Date Active prednisone RxNorm: 8640 miscellaneous No Start Date Active Dulera 200 mcg-5 mcg/actuation HFA aerosol inhaler RxNorm: 2372844 2 INH Q4H No Start Date 06/16/2016 Inactive lisinopril 10 mg tablet RxNorm: 946592 1 Tablet(s) PO daily No Start Date 06/16/2016 Inactive Medication Administered No Medication Administered data Immunizations Vaccine Codes Date Status Influenza CVX: 141 08/20/2018 completed Assessments Condition Codes Effective Dates Diarrhea, unspecified ICD-10: R19.7 ICD-9: 787.91 02/05/2019 [...] acute sinusitis ICD-10: J01.80 ICD-9: 461.8 07/24/2018 Other allergic rhinitis ICD-10: J30.89 ICD-9: 477.8 07/24/2018 Zoster without complications ICD-10: B02.9 ICD-9: [...] Visit Reason For Visit Effective Dates Notes diarrhea 02/05/2019 edema 01/23/2019 hypertension 01/09/2019 cough [...] Item Code Result Date C A/B FLU [id number] Influenza A Scr TNP:Duplicate Order 07/25/2018 C A/B FLU [id number] Influenza B Scr TNP:Duplicate Order 07/25/2018 C A/B FLU [id number] Influenza Intrp B AG:PRID:PT:NOSE:NOM:IF TNP:Duplicate Order 07/25/2018 C A/B FLU [id number] IC OK? TNP:Duplicate Order 07/25/2018 C RAP A SC [id number] Strep A TNP:Lab Request 02/09/2017 C RAP A SC [id number] IC OK? TNP:Lab Request 02/09/2017 Review of Systems System Result Effective Dates Constitutional recent illness 02/05/2019 Constitutional No chills [...] contact 08/20/2018 None Full Exam - General 1995 Eyes conjunctiva/eyelids Overall: cornea clear 08/20/2018 None [...] No Procedures data Vital Signs Date Vital 02/05/2019 Blood Pressure 1: 126/70 Code: 8480-6 BMI: 28.5 Code: 11274-1 Heart Rate 1: 90 bpm Height: 5'4" SpO2: 98% Weight: 166 lbs 01/23/2019 Blood Pressure 1: 122/64 Code: 8480-6 BMI: 28.8 Code: 10891-7 Heart Rate 1: 105 bpm Height: 5'4" SpO2: 98% Weight: 168 lbs 01/09/2019 Blood Pressure 1: 134/80 Code: 8480-6 BMI: 28.8 Code: 07042-1 Heart Rate 1: 98 bpm Height: 5'4" SpO2: 100% Weight: 168 lbs 10/05/2018 Blood Pressure 1: 150/84 Code: 8480-6 BMI: 29.9 Code: 98940-8 Heart Rate 1: 78 bpm Height: 5'4" SpO2: 91% Weight: 174 lbs 08/20/2018 Blood Pressure 1: 142/86 Code: 8480-6 BMI: 29.9 Code: 43888-9 Heart Rate 1: 79 bpm Height: 5'4" SpO2: 98% Weight: 174 lbs 07/24/2018 Blood Pressure 1: 150/84 Code: 8480-6 BMI: 29.9 Code: 11659-0 Heart Rate 1: 116 bpm Height: 5'4" SpO2: 96% Temperature: 37.0 (C) / 98.6 (F) Weight: 174 lbs 05/07/2018 Blood Pressure 1: 130/80 Code: 8480-6 BMI: 29.9 Code: 78733-2 Heart Rate 1: 93 bpm Height: 5'4" SpO2: 95% Weight: 174 lbs 04/20/2018 Blood Pressure 1: 134/70 Code: 8480-6 Heart Rate 1: 86 bpm Height: SpO2: 98% Weight: 04/09/2018 Blood Pressure 1: 132/76 Code: 8480-6 BMI: 29.5 Code: 76100-6 Heart Rate 1: 80 bpm Height: 5'4" SpO2: 98% Weight: 172 lbs 12/08/2017 Blood Pressure 1: 148/76 Code: 8480-6 BMI: 29.9 Code: 06803-1 Heart Rate 1: 97 bpm Height: 5'4" SpO2: 97% Weight: 174 lbs 12/01/2017 Blood Pressure 1: 124/74 Code: 8480-6 BMI: 29.9 Code: 36201-8 Heart Rate 1: 110 bpm Height: 5'4" SpO2: 97% Temperature: 37.4 (C) / 99.4 (F) Weight: 174 lbs 10/10/2017 Blood Pressure 1: 128/80 Code: 8480-6 BMI: 29.8 Code: 29300-9 Heart Rate 1: 91 bpm Height: 5'4" SpO2: 98% Temperature: 36.5 (C) / 97.7 (F) Weight: 173 lbs 8 oz 09/20/2017 Blood Pressure 1: 152/88 Code: 8480-6 BMI: 29.9 Code: 22248-3 Heart Rate 1: 87 bpm Height: 5'4" SpO2: 96% Weight: 174 lbs 09/12/2017 Blood Pressure 1: 134/74 Code: 8480-6 BMI: 29.9 Code: 56186-2 Heart Rate 1: 90 bpm Height: 5'4" SpO2: 96% Weight: 174 lbs 08/18/2017 Blood Pressure 1: 128/68 Code: 8480-6 Heart Rate 1: 88 bpm Height: SpO2: 97% Weight: 06/12/2017 Blood Pressure 1: 130/70 Code: 8480-6 BMI: 29.2 Code: 37314-8 Heart Rate 1: 94 bpm Height: 5'4" SpO2: 95% Weight: 170 lbs 05/04/2017 Blood Pressure 1: 138/80 Code: 8480-6 BMI: 29.9 Code: 79337-3 Heart Rate 1: 84 bpm Height: 5'4" SpO2: 97% Weight: 174 lbs 04/21/2017 Blood Pressure 1: 130/72 Code: 8480-6 BMI: 29.9 Code: 11460-8 Heart Rate 1: 90 bpm Height: 5'4" SpO2: 96% Weight: 174 lbs 03/03/2017 Blood Pressure 1: 136/78 Code: 8480-6 BMI: 29.9 Code: 99895-8 Heart Rate 1: 91 bpm Height: 5'4" SpO2: 96% Weight: 174 lbs 02/13/2017 Blood Pressure 1: 116/74 Code: 8480-6 BMI: 29.2 Code: 53568-7 Heart Rate 1: 91 bpm Height: 5'4" SpO2: 94% Weight: 170 lbs 02/09/2017 Blood Pressure 1: 120/72 Code: 8480-6 BMI: 29.0 Code: 49306-3 Heart Rate 1: 100 bpm Height: 5'4" SpO2: 97% Temperature: 37.4 (C) / 99.3 (F) Weight: 169 lbs 12/14/2016 Blood Pressure 1: 130/72 Code: 8480-6 BMI: 29.5 Code: 34029-7 Heart Rate 1: 100 bpm Height: 5'4" SpO2: 95% Weight: 172 lbs 12/05/2016 Blood Pressure 1: 136/78 Code: 8480-6 BMI: 29.2 Code: 14705-9 Heart Rate 1: 117 bpm Height: 5'4" SpO2: 97% Weight: 170 lbs 09/23/2016 Blood Pressure 1: 130/74 Code: 8480-6 BMI: 30.2 Code: 27541-9 Heart Rate 1: 102 bpm Height: 5'4" SpO2: 94% Weight: 176 lbs 09/14/2016 Blood Pressure 1: 128/74 Code: 8480-6 BMI: 29.4 Code: 28135-6 Heart Rate 1: 90 bpm Height: 5'4" SpO2: 97% Weight: 171 lbs 07/08/2016 Blood Pressure 1: 118/64 Code: 8480-6 BMI: 28.8 Code: 65199-3 Heart Rate 1: 115 bpm Height: 5'4" SpO2: 97% Weight: 168 lbs 06/17/2016 Blood Pressure 1: 144/86 Code: 8480-6 BMI: 29.5 Code: 27147-4 Heart Rate 1: 94 bpm Height: 5'4" SpO2: 96% Weight: 172 lbs Functional Status No Functional Status data History of Present Illness Symptom Name Status Result Effective Date Notes Quality acute 02/05/2019 None Quality intermittent 02/05/2019 [...] data Encounters Encounter Performer Location Codes Date 45952 EST. PATIENT, LEVEL III Diagnosis: Left lower quadrant pain[ICD10: R10.32] Diagnosis: Diarrhea, unspecified[ICD10: R19.7] Leisa Keys MD, [facility] CPT- 4: 20776 02/05/2019 76485 EST. PATIENT, LEVEL III Diagnosis: Tinea unguium[ICD10: B35.1] Diagnosis: Localized edema[ICD10: R60.0] Leisa Keys MD, [facility] CPT-4: 94407 01/23/2019 91750 EST. PATIENT, LEVEL III Diagnosis: Essential (primary) hypertension[ICD10: I10] Diagnosis: Mixed hyperlipidemia[ICD10: E78.2] Leisa Keys MD, [facility] CPT-4: 93019 01/09/2019 ([id number]) 52826 EST. PATIENT, LEVEL III Diagnosis: Cough[ICD10: R05] Diagnosis: Moderate persistent asthma with (acute) exacerbation[ICD10: J45.41] Lisseth Keys MD, [facility] CPT-4: 54969 10/05/2018 30516 EST. PATIENT, LEVEL III Diagnosis: Diverticulitis of large intestine without perforation or abscess with bleeding[ICD10: K57.33] Leisa Keys MD, [facility] CPT-4: 82364 08/20/2018 49734 EST. PATIENT, LEVEL IV Diagnosis: Other acute sinusitis[ICD10: J01.80] Diagnosis: Other allergic rhinitis[ICD10: J30.89] Leisa Keys MD, [facility] CPT- 4: 86710 07/24/2018 99316 EST. PATIENT, LEVEL III Diagnosis: Zoster without complications[ICD10: B02.9] Lisseth Keys MD, [facility] CPT-4: 77562 05/07/2018 61432 EST. PATIENT, LEVEL IV Diagnosis: Cough[ICD10: R05] Diagnosis: Fever presenting with conditions classified elsewhere[ICD10: R50.81] Leisa Keys MD, [facility] CPT-4: 11899 04/20/2018 88633 EST. PATIENT, LEVEL III Diagnosis: Other fatigue[ICD10: R53.83] Diagnosis: Vitamin D deficiency, unspecified[ICD10: E55.9] Diagnosis: Paresthesia of skin[ICD10: R20.2] Diagnosis: Mixed hyperlipidemia[ICD10: E78.2] Diagnosis: Cellulitis of left toe[ICD10: L03.032] Diagnosis: Essential (primary) hypertension[ICD10: I10] Leisa Keys MD, [facility] CPT-4: 24287 04/09/2018 99993 EST. PATIENT, LEVEL IV Diagnosis: Acute bronchitis due to other specified organisms[ICD10: J20.8] Diagnosis: Moderate persistent asthma with (acute) exacerbation[ICD10: J45.41] Leisa Keys MD, [facility] CPT-4: 00650 12/08/2017 18701 EST. PATIENT, LEVEL IV Diagnosis: Other acute sinusitis[ICD10: J01.80] Diagnosis: Other allergic rhinitis[ICD10: J30.89] Diagnosis: Moderate persistent asthma with (acute) exacerbation[ICD10: J45.41] Leisa Keys MD, [facility] CPT-4: 95325 12/01/2017 47900 EST. PATIENT, LEVEL IV Diagnosis: Moderate persistent asthma with (acute) exacerbation[ICD10: J45.41] Diagnosis: Other allergic rhinitis[ICD10: J30.89] Diagnosis: Gastro-esophageal reflux disease without esophagitis[ICD10: K21.9] Leisa Keys MD, [facility] CPT-4: 85129 10/10/2017 44704 EST. PATIENT, LEVEL III Diagnosis: Moderate persistent asthma with (acute) exacerbation[ICD10: J45.41] Diagnosis: Other allergic rhinitis[ICD10: J30.89] Diagnosis: Mixed hyperlipidemia[ICD10: E78.2] Leisa Keys MD [facility] CPT-4: 82317 09/20/2017 10100 EST. PATIENT, LEVEL IV Diagnosis: Acute laryngopharyngitis[ICD10: J06.0] Diagnosis: Other acute sinusitis[ICD10: J01.80] Diagnosis: Other allergic rhinitis[ICD10: J30.89] Leisa Keys MD, [facility] CPT- 4: 30838 09/12/2017 07507 EST. PATIENT, LEVEL IV Diagnosis: Diverticulitis of large intestine without perforation or abscess with bleeding[ICD10: K57.33] Leisa Keys MD [facility] CPT-4: 28367 08/18/2017 32420 EST. PATIENT, LEVEL IV Diagnosis: Other allergic rhinitis[ICD10: J30.89] Diagnosis: Moderate persistent asthma with (acute) exacerbation[ICD10: J45.41] Leisa Keys MD, [facility] CPT-4: 07545 06/12/2017 74851 EST. PATIENT, LEVEL IV Diagnosis: Diverticulitis of large intestine without perforation or abscess with bleeding[ICD10: K57.33] Leisa Keys MD [facility] CPT-4: 48002 05/04/2017 39452 EST. PATIENT, LEVEL IV Diagnosis: Other allergic rhinitis[ICD10: J30.89] Diagnosis: Moderate persistent asthma with (acute) exacerbation[ICD10: J45.41] Leisa Keys MD, [facility] CPT-4: 27357 04/21/2017 39337 EST. PATIENT, LEVEL III Diagnosis: Moderate persistent asthma with (acute) exacerbation[ICD10: J45.41] Leisa Keys MD [facility] CPT-4: 30066 03/03/2017 46347 EST. PATIENT, LEVEL IV Diagnosis: Moderate persistent asthma, uncomplicated[ICD10: J45.40] Diagnosis: Other mucopurulent conjunctivitis, left eye[ICD10: H10.022] Diagnosis: Acute laryngopharyngitis[ICD10: J06.0] Leisa Keys MD, [facility] CPT- 4: 12013 02/13/2017 82176 EST. PATIENT, LEVEL IV Diagnosis: Acute laryngopharyngitis[ICD10: J06.0] Diagnosis: Other acute sinusitis[ICD10: J01.80] Diagnosis: Other allergic rhinitis[ICD10: J30.89] Leisa Keys MD, [facility] CPT- 4: 24545 02/09/2017 75457 EST. PATIENT, LEVEL III Diagnosis: Other allergic rhinitis[ICD10: J30.89] Diagnosis: Moderate persistent asthma, uncomplicated[ICD10: J45.40] Leisa Keys MD, [facility] CPT-4: 27132 12/14/2016 09920 EST. PATIENT, LEVEL III Diagnosis: Other acute sinusitis[ICD10: J01.80] Diagnosis: Other allergic rhinitis[ICD10: J30.89] Diagnosis: Moderate persistent asthma, uncomplicated[ICD10: J45.40] Diagnosis: Gastro-esophageal reflux disease without esophagitis[ICD10: K21.9] Leisa Keys MD, [facility] CPT-4: 03819 12/05/2016 45428 EST. PATIENT, LEVEL IV Diagnosis: Other allergic rhinitis[ICD10: J30.89] Diagnosis: Moderate persistent asthma, uncomplicated[ICD10: J45.40] Diagnosis: Cough[ICD10: R05] [facility] CPT-4: 11896 09/23/2016 89956 EST. PATIENT, LEVEL IV Diagnosis: Moderate persistent asthma, uncomplicated[ICD10: J45.40] Diagnosis: Other allergic rhinitis[ICD10: J30.89] [facility] CPT- 4: 48375 09/14/2016 13321 EST. PATIENT, LEVEL IV Diagnosis: Other acute sinusitis[ICD10: J01.80] Leisa Keys MD, [facility] CPT- 4: 56690 07/08/2016 (94293) PREV VISIT NEW AGE 40-64 Diagnosis: Encounter for gynecological examination (general) (routine) without abnormal findings[ICD10: Z01.419] Diagnosis: Moderate persistent asthma, uncomplicated[ICD10: J45.40] Diagnosis: Essential (primary) hypertension[ICD10: I10] Diagnosis: Mixed hyperlipidemia[ICD10: E78.2] Leisa Keys MD, [facility] CPT-4: 07220 06/17/2016 Plan of Care Planned Activity Notes Codes Status Date Visit Plan: Diarrhea - recommended bland diet, [...] to upset the pt's stomach. 02/05/2019 Appointment: Lesia Kirkpatrick WPtel: [address] [place], [place] [phone] (30 min) [facility] 02/05/2019 Patient Education: Patient Medication Summary Completed [...] or concerns. 01/23/2019 Appointment: Leisa Kirkpatrick WPtel: [facility] (30 min) Complex 01/23/2019 Patient Education: Patient Medication Summary Completed 01/23/2019 Visit Plan: pt is on chronic antihypertensive medication - the medication has been adjusted down to attempt to alleviate the low blood pressures. 01/09/2019 Appointment: Leisa Kirkpatrick WPtel: [phone] [facility] (30 min) Complex 01/09/2019 Patient Education: Patient [...] acute changes. 10/05/2018 Appointment: Lisseth Greene WPtel: [phone] [place] (15 min) Moderate 10/05/2018 Patient Education: Patient Medication Summary Completed 10/05/2018 Visit Plan: Diverticulitis - rx for antibiotic sent to pt's pharmacy - pt advised to avoid seeds, nuts, popcorn, or any other food which has been proven to upset the pt's stomach. 08/20/2018 Appointment: Leisa Kirkpatrick WPtel: [phone] [facility] [place] (15 min) Moderate 08/20/2018 Patient Education: [...] allergy spray. 07/24/2018 Appointment: Leisa Kirkpatrick WPtel: [facility] [place] (15 min) Moderate 07/24/2018 Patient Education: Patient Medication Summary Completed 07/24/2018 Appointment: Leisa Kirkpatrick WPtel: [facility] [place] (30 min) Complex 05/14/2018 Visit Plan: Shingles [...] considered contagious. 05/07/2018 Appointment: Lisseth Greene WPtel: [phone] [place] (15 min) Moderate 05/07/2018 Patient [...] changes, questions, or concerns. 04/20/2018 Appointment: [phone] ([facility] min) Moderate 04/20/2018 Patient Education: Patient [...] indicated. 04/09/2018 Appointment: [phone] ([place] min) Moderate 04/09/2018 Patient Education: Patient Medication Summary Completed 04/09/2018 Patient Education: Patient Medication Summary Completed 04/09/2018 Care Plan: B12 Pending 04/09/2018 Care Plan: Folate Pending 04/09/2018 Care Plan: Vitamin D 25 Oh Pending 04/09/2018 Care Plan: Lipid Pending 04/09/2018 Care Plan: [employer] : [id number] Pending 04/09/2018 Visit Plan: Bronchitis - acute [...] changes. 12/08/2017 [phone] ([facility]) Complex 12/08/2017 Patient Education: Patient [...] acute changes. 12/01/2017 Appointment: [phone] (15 min) Moderate 12/01/2017 Patient Education: Patient [...] symptoms are not improving. 10/10/2017 Appointment: Leisa Kirkpatricktel: [facility] (15 min) Moderate 10/10/2017 Patient Education: Patient Medication Summary Completed 10/10/2017 Appointment: Leisa Kirkpatrickl: [facility] [place] (15 min) Moderate 10/06/2017 Visit Plan: Asthma [...] to medications. 09/20/2017 Appointment: [phone] (15 min) Moderate 09/20/2017 Patient Education: Patient [...] spray. 09/12/2017 Appointment: [phone] [place] (15 min) Moderate 09/12/2017 Patient Education: Patient Medication Summary Completed 09/12/2017 Patient Education: Obesity Completed 09/12/2017 Visit Plan: Diverticulitis - rx for antibiotic sent to pt's pharmacy - pt advised to avoid seeds, nuts, popcorn, or any other food which has been proven to upset the pt's stomach. 08/18/2017 Appointment: [phone] (30 min) Complex 08/18/2017 Patient Education: Patient [...] spray. 06/12/2017 Appointment: [phone] (10 min) Simple 06/12/2017 Patient Education: Patient Medication Summary Completed 06/12/2017 Visit Plan: Diverticulitis - rx for antibiotic sent to pt's pharmacy - pt advised to avoid seeds, nuts, popcorn, or any other food which has been proven to upset the pt's stomach. 05/04/2017 Appointment: [phone] (30 min) Complex 05/04/2017 Patient Education: Patient [...] spray. 04/21/2017 Appointment: [phone] (15 min) Moderate 04/21/2017 Patient Education: Patient [...] changes. 03/03/2017 Appointment: [phone] ([place] min) Complex 03/03/2017 Patient Education: Patient [...] times daily. 02/13/2017 Appointment: [facility] Kirkpatrick [phone] (10 min) Simple 02/13/2017 Patient Education: Patient [...] allergy spray. 02/09/2017 Appointment: [facility] Kirk[phone] (15 min) Moderate 02/09/2017 Patient Education: Patient [...] allergy spray. 12/14/2016 Appointment: Leisa Kirkpatrick WPtel: [facility] [place] (15 min) Moderate 12/14/2016 Patient Education: Patient [...] not improving. 12/05/2016 Appointment: Leisa Kirkpatrick WPtel: [facility] [place] (30 min) Complex 12/05/2016 Patient Education: Patient [...] acute changes. 09/23/2016 Appointment: Liss[facility] Greene [id number] (30 min) [facility] 09/23/2016 Patient Education: Patient Medication Summary [...] improvement. Allerg ies/asthma - pt sees an nanofabrication specialist who recently started her on Qvar and dexilant. They are referring her to pulmonology (Dr. Mcconnell) - pt is to notify clinic with any questions or concerns. 07/08/2016 Appointment: [facility]iss[id number] (15 min) Moderate 07/08/2016 Patient Education: Patient [...] to medications. 06/17/2016 Appointment: Lisseth Greene WPtel: [facility] [id number] New Patient 06/17/2016 Patient Education: Patient Medication [...] office if the symptoms are not improving. probiotic and salt water gargles 3 times [...] show improvement. Allergies/asthma - pt sees an nanofabrication specialist who recently started her on Qvar [...]
--- OUTSIDE RECORDS SUMMARY | 2019-03-30 10:28 | XMS REPORT | CCD ---
Author Author Leisa Kirkpatrick MD, [facility] Address [address] [place] [address] Phone Care Team Providers Care Office Helper Clerical Name Role Phone PP Unavailable CCM Unavailable Summary Purpose Interface Exchange Insurance Providers Payer name Policy type / Coverage type Covered democrat ID Effective Begin Date Effective End Date [facility] [id number] Unknown Family history Father Diagnosis Age At Onset Heart Attack Unknown genetic disease Unknown Skin cancer Unknown Hypertension Unknown Mother Diagnosis Age At Onset Stroke Unknown Daughter Diagnosis Age At Onset Asthma Unknown Arthritis Unknown Social History Social History Element Codes Description Effective Dates Marital status Unknown Lev 10/10/2017 Number of children Unknown 2 06/17/[address]: 761113396 Never smoker 06/17/2016 Alcohol history Unknown occasionally [...] Fill Instructions Flagyl 500 mg tablet RxNorm: 196561 1 Tablet(s) PO TID 02/05/2019 02/14/2019 Active clotrimazole 1 % topical cream RxNorm: 199529 1 Application TOP BID 01/23/2019 No Stop Date Active Tamiflu 75 mg capsule RxNorm: 621976 1 Capsule(s) PO daily 01/11/2019 01/20/2019 Inactive Tamiflu 75 mg capsule RxNorm: 340702 1 Capsule(s) PO daily 01/11/2019 01/10/2019 Inactive losartan 25 mg tablet RxNorm: 522226 1 Tablet(s) PO daily 12/24/2018 04/22/2019 Active losartan 25 mg tablet RxNorm: 413399 1 Tablet(s) PO daily 12/24/2018 12/23/2018 Inactive Zithromax Z-Maykel 250 mg tablet RxNorm: 789714 1 Tablet(s) PO UD 10/05/2018 10/09/2018 Inactive prednisone 20 mg tablet RxNorm: 044809 2 Tablet(s) PO daily 10/05/2018 10/09/2018 Inactive Zantac 150 mg tablet RxNorm: 497181 TAKE 1 TABLET BY MOUTH TWICE DAILY 08/22/2018 08/16/2019 Active Generic For:*ZANTAC 150 MG TABLET 08/22/2018 10:42:54 AM lisinopril 10 mg tablet RxNorm: 588893 TAKE 1 TABLET BY MOUTH DAILY 08/22/2018 12/24/2018 Inactive Generic For:ZESTRIL 10 MG TABLET 08/22/2018 10:43:05 AM prednisone 10 mg tablet RxNorm: 479448 Tablet(s) PO 07/24/2018 No Stop Date Active 40,40,30,30,20,20,10,10,5mg every other day x 2 doses Zithromax Z-Maykel 250 mg tablet RxNorm: 099339 1 Tablet(s) PO UD 07/24/2018 10/04/2018 Inactive Protonix 20 mg tablet,delayed release RxNorm: 297072 1 Tablet(s) PO BID 05/23/2018 11/18/2018 Inactive acyclovir 400 mg tablet RxNorm: 730112 2 Tablet(s) PO QID 05/07/2018 05/16/2018 Inactive doxycycline hyclate 100 mg capsule RxNorm: 8846275 1 Capsule(s) PO BID 04/20/2018 04/29/2018 Inactive Bactrim DS 800 mg-160 mg tablet RxNorm: 586129 1 Tablet(s) PO BID 04/16/2018 04/18/2018 Inactive Bactrim DS 800 mg-160 mg tablet RxNorm: 571983 1 Tablet(s) PO BID 04/09/2018 04/15/2018 Inactive lisinopril 10 mg tablet RxNorm: 316753 TAKE 1 TABLET BY MOUTH DAILY 02/21/2018 08/19/2018 Inactive Generic For:ZESTRIL 10 MG TABLET 02/21/2018 11:39:12 AM prednisone 10 mg tablet RxNorm: 345435 Tablet(s) PO 60mg x 2 days, then 40mg x 2 days, then 20mg x 2 days, the 10mg x 2 days, then 5mg every other day x 2 doses 12/08/2017 No Stop Date Active disp qty sufficient doxycycline hyclate 100 mg capsule RxNorm: 5847650 1 Capsule(s) PO BID 12/08/2017 12/17/2017 Inactive albuterol sulfate 2.5 mg/3 mL (0.083 %) solution for nebulization RxNorm: 538285 3 Milliliter(s) INH Q4-6H 12/06/2017 No Stop Date Active prednisone 20 mg tablet RxNorm: 353491 Tablet(s) PO 40mg x 2 days, then 20mg x 2 days, then 10mg x 2 days 12/01/2017 No Stop Date Active Zithromax Z-Maykel 250 mg tablet RxNorm: 334667 1 Tablet(s) PO UD 12/01/2017 04/15/2018 Inactive levocetirizine 5 mg tablet RxNorm: 543820 1 Tablet(s) PO daily 11/13/2017 05/11/2018 Inactive Protonix 20 mg tablet,delayed release RxNorm: 597622 1 Tablet(s) PO BID 11/13/2017 05/11/2018 Inactive Protonix 20 mg tablet,delayed release RxNorm: 629607 1 Tablet(s) PO BID 10/10/2017 11/08/2017 Inactive Tessalon Perles 100 mg capsule RxNorm: 930180 1-2 Capsule(s) PO TID as needed 10/10/2017 10/14/2017 Inactive prednisone 20 mg tablet RxNorm: 674103 Tablet(s) PO 40mg x 2 days, then 20mg x 2 days, then 10mg x 2 days 09/20/2017 11/30/2017 Inactive doxycycline hyclate 100 mg capsule RxNorm: 8163050 1 Capsule(s) PO BID 09/20/2017 09/26/2017 Inactive Zithromax Z-Maykel 250 mg tablet RxNorm: 010554 1 Tablet(s) PO UD 09/12/2017 10/09/2017 Inactive albuterol sulfate 2.5 mg/3 mL (0.083 %) solution for nebulization RxNorm: 100672 3 Milliliter(s) INH Q4-6H 09/12/2017 12/05/2017 Inactive prednisone 20 mg tablet RxNorm: 730085 2 Tablet(s) PO daily 09/12/2017 09/16/2017 Inactive lisinopril 10 mg tablet RxNorm: 843182 1 Tablet(s) PO daily 08/28/2017 02/20/2018 Inactive Zantac 150 mg tablet RxNorm: 792043 1 Tablet(s) PO BID 08/28/2017 08/21/2018 Inactive Cipro 500 mg tablet RxNorm: 930373 1 Tablet(s) PO BID 08/18/2017 08/26/2017 Inactive metronidazole 500 mg tablet RxNorm: 835505 1 Tablet(s) PO TID 08/18/2017 08/26/2017 Inactive prednisone 20 mg tablet RxNorm: 926509 2 Tablet(s) PO BID 06/12/2017 06/16/2017 Inactive Cipro 500 mg tablet RxNorm: 987669 1 Tablet(s) PO BID 05/04/2017 05/13/2017 Inactive metronidazole 500 mg tablet RxNorm: 248201 1 Tablet(s) PO TID 05/04/2017 05/13/2017 Inactive Zantac 150 mg tablet RxNorm: 436891 1 Tablet(s) PO BID 04/27/2017 08/24/2017 Inactive prednisone 20 mg tablet RxNorm: 511103 2 Tablet(s) PO BID start if getting worse 04/21/2017 04/25/2017 Inactive levocetirizine 5 mg tablet RxNorm: 338438 1 Tablet(s) PO daily 04/21/2017 05/20/2017 Inactive prednisone 20 mg tablet RxNorm: 259784 1 Tablet(s) PO BID Start with 1 pill daily and see how effective it is - if still not effective increase to twice a day as discussed 03/03/2017 03/07/2017 Inactive lisinopril 10 mg tablet RxNorm: 364078 1 Tablet(s) PO daily 03/01/2017 08/27/2017 Inactive ciprofloxacin 0.3 % eye drops RxNorm: 937773 2 Drop(s) OPH QID 02/13/2017 02/17/2017 Inactive Zithromax 250 mg tablet RxNorm: 871873 1 Tablet(s) PO daily 02/13/2017 02/15/2017 Inactive Zithromax Z-Maykel 250 mg tablet RxNorm: 316232 1 Tablet(s) PO UD 02/09/2017 02/08/2017 Inactive Zithromax Z-Maykel 250 mg tablet RxNorm: 465887 1 Tablet(s) PO UD 02/09/2017 09/11/2017 Inactive Premarin 0.625 mg/gram vaginal cream RxNorm: 394672 1 Application VAG BIW 12/30/2016 No Stop Date Active Zantac 150 mg tablet RxNorm: 684038 1 Tablet(s) PO BID 12/05/2016 04/03/2017 Inactive prednisone 20 mg tablet RxNorm: 842296 2 Tablet(s) PO daily 12/05/2016 12/09/2016 Inactive Zithromax Z-Maykel 250 mg tablet RxNorm: 826105 Tablet(s) PO UD 12/05/2016 02/08/2017 Inactive lisinopril 10 mg tablet RxNorm: 004502 1 Tablet(s) PO daily 10/31/2016 02/27/2017 Inactive Tessalon Perles 100 mg capsule RxNorm: 664342 2 Capsule(s) PO TID as needed dyspnea 09/23/2016 09/27/2016 Inactive prednisone 20 mg tablet RxNorm: 381182 2 Tablet(s) PO daily 09/23/2016 09/27/2016 Inactive Qvar 80 mcg/actuation Metered Aerosol oral inhaler RxNorm: 761527 1 INH BID started by her asset specialist 08/02/2016 09/12/2016 Inactive Zithromax Z-Maykel 250 mg tablet RxNorm: 032008 Tablet(s) PO UD 07/08/2016 12/04/2016 Inactive Tessalon Perles 100 mg capsule RxNorm: 209179 2 Capsule(s) PO TID as needed dyspnea 07/08/2016 07/12/2016 Inactive prednisone 20 mg tablet RxNorm: 903821 1 Tablet(s) PO UD 07/08/2016 09/22/2016 Inactive Premarin 0.625 mg/gram vaginal cream RxNorm: 531933 1 Application VAG BIW 06/21/2016 12/29/2016 Inactive Dulera 200 mcg-5 mcg/actuation HFA aerosol inhaler RxNorm: 2059983 2 INH Q2H 06/17/2016 No Stop Date Active lisinopril 10 mg tablet RxNorm: 636063 1 Tablet(s) PO daily 06/17/2016 10/14/2016 Inactive olopatadine 0.1 % eye drops RxNorm: 6108648 Drop(s) OPH PRN No Start Date Active ProAir HFA 90 mcg/actuation aerosol inhaler RxNorm: 641444 2 Puff(s) INH PRN No Start Date Active Zyrtec 10 mg capsule RxNorm: 1282211 1 Capsule(s) PO daily No Start Date Active lutein 20 mg capsule RxNorm: 509223 1 Capsule(s) PO daily No Start Date Active Wyarno Oil 1,000 mg capsule RxNorm: 1 Capsule(s) PO daily No Start Date Active montelukast 10 mg tablet RxNorm: 984235 1 Tablet(s) PO daily No Start Date Active Vitamin D3 1,000 unit capsule RxNorm: 119538 Capsule(s) PO No Start Date Active B12 sublingual RxNorm: 60201 sublingual No Start Date Active pravastatin 20 mg tablet RxNorm: 291825 1 Tablet(s) PO daily No Start Date Active zinc picolinate 50 mg tablet RxNorm: 1 Tablet(s) PO daily No Start Date Active chromium picolinate 200 mcg capsule RxNorm: 860379 1 Capsule(s) PO daily No Start Date Active magnesium RxNorm: 1 PO BID No Start Date Active premarin 0.5% Vaginal cream RxNorm: 1 VAG daily No Start Date Active Xolair 150 mg subcutaneous solution RxNorm: 5961881 1 SQ monthly No Start Date Active folate #7-pc dha-pe ejw-WRRZ-sspihr-IF-multivitamin #46 oral RxNorm: oral No Start Date Active prednisone RxNorm: 8640 miscellaneous No Start Date Active Dulera 200 mcg-5 mcg/actuation HFA aerosol inhaler RxNorm: 8640851 2 INH Q4H No Start Date 06/16/2016 Inactive lisinopril 10 mg tablet RxNorm: 894449 1 Tablet(s) PO daily No Start Date [...] Item Code Result Date C A/B FLU [id number] Influenza A Scr TNP:Duplicate Order 07/25/2018 C A/B FLU [id number] Influenza B Scr TNP:Duplicate Order 07/25/2018 C A/B FLU [id number] Influenza Intrp B AG:PRID:PT:NOSE:NOM:IF TNP:Duplicate Order 07/25/2018 C A/B FLU [id number] IC OK? TNP:Duplicate Order 07/25/2018 C RAP A SC [id number] Strep A TNP:Lab Request 02/09/2017 C RAP A SC [id number] IC OK? TNP:Lab Request 02/09/2017 Review of [...] 1: 126/70 Code: 8480-6 BMI: 28.5 Code: 28748-9 Heart Rate 1: 90 bpm Height: 5'4" SpO2: 98% Weight: 166 lbs 01/23/2019 Blood Pressure 1: 122/64 Code: 8480-6 BMI: 28.8 Code: 12064-5 Heart Rate 1: 105 bpm Height: 5'4" SpO2: 98% Weight: 168 lbs 01/09/2019 Blood Pressure 1: 134/80 Code: 8480-6 BMI: 28.8 Code: 19039-1 Heart Rate 1: 98 bpm Height: 5'4" SpO2: 100% Weight: 168 lbs 10/05/2018 Blood Pressure 1: 150/84 Code: 8480-6 BMI: 29.9 Code: 59464-3 Heart Rate 1: 78 bpm Height: 5'4" SpO2: 91% Weight: 174 lbs 08/20/2018 Blood Pressure 1: 142/86 Code: 8480-6 BMI: 29.9 Code: 70841-1 Heart Rate 1: 79 bpm Height: 5'4" SpO2: 98% Weight: 174 lbs 07/24/2018 Blood Pressure 1: 150/84 Code: 8480-6 BMI: 29.9 Code: 06693-1 Heart Rate 1: 116 bpm Height: 5'4" SpO2: 96% Temperature: 37.0 (C) / 98.6 (F) Weight: 174 lbs 05/07/2018 Blood Pressure 1: 130/80 Code: 8480-6 BMI: 29.9 Code: 29923-9 Heart Rate 1: 93 bpm Height: 5'4" SpO2: 95% Weight: 174 lbs 04/20/2018 Blood Pressure 1: 134/70 Code: 8480-6 Heart Rate 1: 86 bpm Height: SpO2: 98% Weight: 04/09/2018 Blood Pressure 1: 132/76 Code: 8480-6 BMI: 29.5 Code: 16319-2 Heart Rate 1: 80 bpm Height: 5'4" SpO2: 98% Weight: 172 lbs 12/08/2017 Blood Pressure 1: 148/76 Code: 8480-6 BMI: 29.9 Code: 71531-5 Heart Rate 1: 97 bpm Height: 5'4" SpO2: 97% Weight: 174 lbs 12/01/2017 Blood Pressure 1: 124/74 Code: 8480-6 BMI: 29.9 Code: 01347-6 Heart Rate 1: 110 bpm Height: 5'4" SpO2: 97% Temperature: 37.4 (C) / 99.4 (F) Weight: 174 lbs 10/10/2017 Blood Pressure 1: 128/80 Code: 8480-6 BMI: 29.8 Code: 73535-5 Heart Rate 1: 91 bpm Height: 5'4" SpO2: 98% Temperature: 36.5 (C) / 97.7 (F) Weight: 173 lbs 8 oz 09/20/2017 Blood Pressure 1: 152/88 Code: 8480-6 BMI: 29.9 Code: 40786-8 Heart Rate 1: 87 bpm Height: 5'4" SpO2: 96% Weight: 174 lbs 09/12/2017 Blood Pressure 1: 134/74 Code: 8480-6 BMI: 29.9 Code: 87585-4 Heart Rate 1: 90 bpm Height: 5'4" SpO2: 96% Weight: 174 lbs 08/18/2017 Blood Pressure 1: 128/68 Code: 8480-6 Heart Rate 1: 88 bpm Height: SpO2: 97% Weight: 06/12/2017 Blood Pressure 1: 130/70 Code: 8480-6 BMI: 29.2 Code: 33823-1 Heart Rate 1: 94 bpm Height: 5'4" SpO2: 95% Weight: 170 lbs 05/04/2017 Blood Pressure 1: 138/80 Code: 8480-6 BMI: 29.9 Code: 98988-0 Heart Rate 1: 84 bpm Height: 5'4" SpO2: 97% Weight: 174 lbs 04/21/2017 Blood Pressure 1: 130/72 Code: 8480-6 BMI: 29.9 Code: 76112-3 Heart Rate 1: 90 bpm Height: 5'4" SpO2: 96% Weight: 174 lbs 03/03/2017 Blood Pressure 1: 136/78 Code: 8480-6 BMI: 29.9 Code: 00358-5 Heart Rate 1: 91 bpm Height: 5'4" SpO2: 96% Weight: 174 lbs 02/13/2017 Blood Pressure 1: 116/74 Code: 8480-6 BMI: 29.2 Code: 35370-7 Heart Rate 1: 91 bpm Height: 5'4" SpO2: 94% Weight: 170 lbs 02/09/2017 Blood Pressure 1: 120/72 Code: 8480-6 BMI: 29.0 Code: 90117-0 Heart Rate 1: 100 bpm Height: 5'4" SpO2: 97% Temperature: 37.4 (C) / 99.3 (F) Weight: 169 lbs 12/14/2016 Blood Pressure 1: 130/72 Code: 8480-6 BMI: 29.5 Code: 23270-8 Heart Rate 1: 100 bpm Height: 5'4" SpO2: 95% Weight: 172 lbs 12/05/2016 Blood Pressure 1: 136/78 Code: 8480-6 BMI: 29.2 Code: 23863-1 Heart Rate 1: 117 bpm Height: 5'4" SpO2: 97% Weight: 170 lbs 09/23/2016 Blood Pressure 1: 130/74 Code: 8480-6 BMI: 30.2 Code: 09522-3 Heart Rate 1: 102 bpm Height: 5'4" SpO2: 94% Weight: 176 lbs 09/14/2016 Blood Pressure 1: 128/74 Code: 8480-6 BMI: 29.4 Code: 37332-3 Heart Rate 1: 90 bpm Height: 5'4" SpO2: 97% Weight: 171 lbs 07/08/2016 Blood Pressure 1: 118/64 Code: 8480-6 BMI: 28.8 Code: 33929-5 Heart Rate 1: 115 bpm Height: 5'4" SpO2: 97% Weight: 168 lbs 06/17/2016 Blood Pressure 1: 144/86 Code: 8480-6 BMI: 29.5 Code: 62615-9 Heart Rate 1: 94 bpm Height: 5'4" [...] data Encounters Encounter Performer Location Codes Date 63661 EST. PATIENT, LEVEL III Diagnosis: Left lower quadrant pain[ICD10: R10.32] Diagnosis: Diarrhea, unspecified[ICD10: R19.7] Leisa Keys MD, [facility] CPT- 4: 56988 02/05/2019 66697 EST. PATIENT, LEVEL III Diagnosis: Tinea unguium[ICD10: B35.1] Diagnosis: Localized edema[ICD10: R60.0] Leisa Keys MD, [facility] CPT-4: 88815 01/23/2019 80705 EST. PATIENT, LEVEL III Diagnosis: Essential (primary) hypertension[ICD10: I10] Diagnosis: Mixed hyperlipidemia[ICD10: E78.2] Leisa Keys MD, [facility] CPT-4: 34837 01/09/2019 ([id number]) 02322 EST. PATIENT, LEVEL III Diagnosis: Cough[ICD10: R05] Diagnosis: Moderate persistent asthma with (acute) exacerbation[ICD10: J45.41] Lisseth Keys MD, [facility] CPT-4: 20139 10/05/2018 88813 EST. PATIENT, LEVEL III Diagnosis: Diverticulitis of large intestine without perforation or abscess with bleeding[ICD10: K57.33] Leisa Keys MD, [facility] CPT-4: 18856 08/20/2018 85356 EST. PATIENT, LEVEL IV Diagnosis: Other acute sinusitis[ICD10: J01.80] Diagnosis: Other allergic rhinitis[ICD10: J30.89] Leisa Keys MD, [facility] CPT- 4: 16040 07/24/2018 58629 EST. PATIENT, LEVEL III Diagnosis: Zoster without complications[ICD10: B02.9] Lisseth Keys MD, [facility] CPT-4: 44856 05/07/2018 35961 EST. PATIENT, LEVEL IV Diagnosis: Cough[ICD10: R05] Diagnosis: Fever presenting with conditions classified elsewhere[ICD10: R50.81] Leisa Keys MD, [facility] CPT-4: 27356 04/20/2018 56800 EST. PATIENT, LEVEL III Diagnosis: Other fatigue[ICD10: R53.83] Diagnosis: Vitamin D deficiency, unspecified[ICD10: E55.9] Diagnosis: Paresthesia of skin[ICD10: R20.2] Diagnosis: Mixed hyperlipidemia[ICD10: E78.2] Diagnosis: Cellulitis of left toe[ICD10: L03.032] Diagnosis: Essential (primary) hypertension[ICD10: I10] Leisa Keys MD, [facility] CPT-4: 27433 04/09/2018 46664 EST. PATIENT, LEVEL IV Diagnosis: Acute bronchitis due to other specified organisms[ICD10: J20.8] Diagnosis: Moderate persistent asthma with (acute) exacerbation[ICD10: J45.41] Leisa Keys MD, [facility] CPT-4: 34734 12/08/2017 96164 EST. PATIENT, LEVEL IV Diagnosis: Other acute sinusitis[ICD10: J01.80] Diagnosis: Other allergic rhinitis[ICD10: J30.89] Diagnosis: Moderate persistent asthma with (acute) exacerbation[ICD10: J45.41] Leisa Keys MD, [facility] CPT-4: 72690 12/01/2017 78643 EST. PATIENT, LEVEL IV Diagnosis: Moderate persistent asthma with (acute) exacerbation[ICD10: J45.41] Diagnosis: Other allergic rhinitis[ICD10: J30.89] Diagnosis: Gastro-esophageal reflux disease without esophagitis[ICD10: K21.9] Leisa Keys MD, [facility] CPT-4: 45073 10/10/2017 91185 EST. PATIENT, LEVEL III Diagnosis: Moderate persistent asthma with (acute) exacerbation[ICD10: J45.41] Diagnosis: Other allergic rhinitis[ICD10: J30.89] Diagnosis: Mixed hyperlipidemia[ICD10: E78.2] Leisa Keys MD [facility] CPT-4: 87943 09/20/2017 34925 EST. PATIENT, LEVEL IV Diagnosis: Acute laryngopharyngitis[ICD10: J06.0] Diagnosis: Other acute sinusitis[ICD10: J01.80] Diagnosis: Other allergic rhinitis[ICD10: J30.89] Leisa Keys MD, [facility] CPT- 4: 48112 09/12/2017 17416 EST. PATIENT, LEVEL IV Diagnosis: Diverticulitis of large intestine without perforation or abscess with bleeding[ICD10: K57.33] Leisa Keys MD [facility] CPT-4: 97772 08/18/2017 28303 EST. PATIENT, LEVEL IV Diagnosis: Other allergic rhinitis[ICD10: J30.89] Diagnosis: Moderate persistent asthma with (acute) exacerbation[ICD10: J45.41] Leisa Keys MD, [facility] CPT-4: 24508 06/12/2017 17209 EST. PATIENT, LEVEL IV Diagnosis: Diverticulitis of large intestine without perforation or abscess with bleeding[ICD10: K57.33] Leisa Keys MD [facility] CPT-4: 23551 05/04/2017 22839 EST. PATIENT, LEVEL IV Diagnosis: Other allergic rhinitis[ICD10: J30.89] Diagnosis: Moderate persistent asthma with (acute) exacerbation[ICD10: J45.41] Leisa Keys MD, [facility] CPT-4: 13177 04/21/2017 05965 EST. PATIENT, LEVEL III Diagnosis: Moderate persistent asthma with (acute) exacerbation[ICD10: J45.41] Leisa Keys MD [facility] CPT-4: 18351 03/03/2017 66256 EST. PATIENT, LEVEL IV Diagnosis: Moderate persistent asthma, uncomplicated[ICD10: J45.40] Diagnosis: Other mucopurulent conjunctivitis, left eye[ICD10: H10.022] Diagnosis: Acute laryngopharyngitis[ICD10: J06.0] Leisa Keys MD, [facility] CPT- 4: 09045 02/13/2017 82192 EST. PATIENT, LEVEL IV Diagnosis: Acute laryngopharyngitis[ICD10: J06.0] Diagnosis: Other acute sinusitis[ICD10: J01.80] Diagnosis: Other allergic rhinitis[ICD10: J30.89] Leisa Keys MD, [facility] CPT- 4: 96299 02/09/2017 51201 EST. PATIENT, LEVEL III Diagnosis: Other allergic rhinitis[ICD10: J30.89] Diagnosis: Moderate persistent asthma, uncomplicated[ICD10: J45.40] Leisa Keys MD, [facility] CPT-4: 47464 12/14/2016 77989 EST. PATIENT, LEVEL III Diagnosis: Other acute sinusitis[ICD10: J01.80] Diagnosis: Other allergic rhinitis[ICD10: J30.89] Diagnosis: Moderate persistent asthma, uncomplicated[ICD10: J45.40] Diagnosis: Gastro-esophageal reflux disease without esophagitis[ICD10: K21.9] Leisa Keys MD, [facility] CPT-4: 88151 12/05/2016 03442 EST. PATIENT, LEVEL IV Diagnosis: Other allergic rhinitis[ICD10: J30.89] Diagnosis: Moderate persistent asthma, uncomplicated[ICD10: J45.40] Diagnosis: Cough[ICD10: R05] [facility] CPT-4: 98639 09/23/2016 44117 EST. PATIENT, LEVEL IV Diagnosis: Moderate persistent asthma, uncomplicated[ICD10: J45.40] Diagnosis: Other allergic rhinitis[ICD10: J30.89] [facility] CPT- 4: 72764 09/14/2016 31984 EST. PATIENT, LEVEL IV Diagnosis: Other acute sinusitis[ICD10: J01.80] Leisa Keys MD, [facility] CPT- 4: 22482 07/08/2016 ([id number]) PREV VISIT NEW AGE 40-64 Diagnosis: Encounter for gynecological examination (general) (routine) without abnormal findings[ICD10: Z01.419] Diagnosis: Moderate persistent asthma, uncomplicated[ICD10: J45.40] Diagnosis: Essential (primary) hypertension[ICD10: I10] Diagnosis: Mixed hyperlipidemia[ICD10: E78.2] Leisa Keys MD, [facility] CPT-4: 19999 06/17/2016 Plan of Care Planned Activity Notes [...] proven to upset the pt's stomach. 02/05/2019 Patient Education: Patient Medication Summary Completed [...] or concerns. 01/23/2019 Appointment: Leisa Kirkpatrick WPtel: [phone] [phone] (30 min) Complex 01/23/2019 Patient Education: Patient Medication Summary Completed 01/23/2019 Visit Plan: pt is on chronic antihypertensive medication - the medication has been adjusted down to attempt to alleviate the low blood pressures. 01/09/2019 Appointment: Leisa Kirkpatrick WPtel: [phone] [phone] (30 min) Complex 01/09/2019 Patient Education: Patient [...] changes. 10/05/2018 Appointment: Lisseth Greene WPtel: [phone] [phone] [place] (15 min) Moderate 10/05/2018 Patient Education: Patient Medication Summary Completed 10/05/2018 Visit Plan: Diverticulitis - rx for antibiotic sent to pt's pharmacy - pt advised to avoid seeds, nuts, popcorn, or any other food which has been proven to upset the pt's stomach. 08/20/2018 Appointment: Leisa Kirkpatrick WPtel: [phone] [phone] [place] (15 min) Moderate 08/20/2018 Patient Education: [...] spray. 07/24/2018 Appointment: Leisa Kirkpatrick WPtel: [phone] [facility] (15 min) Moderate 07/24/2018 Patient Education: Patient Medication Summary Completed 07/24/2018 Appointment: Leisa Kirkpatrick WPtel: [phone] [facility] (30 min) Complex 05/14/2018 Visit Plan: [...] contagious. 05/07/2018 Appointment: Lisseth Greene WPtel: [phone] [phone] [place] (15 min) Moderate 05/07/2018 Patient Education: [...] concerns. 04/20/2018 Appointment: Leisa Kirkpatrick WPtel: [phone] [facility] (15 min) Moderate 04/20/2018 Patient Education: Patient [...] as indicated. 04/09/2018 Appointment: Leisa Kirkpatrick WPtel: [address] [place], [place] [address] (15 min) Moderate 04/09/2018 Patient Education: Patient Medication Summary Completed 04/09/2018 Patient Education: Patient Medication Summary Completed 04/09/2018 Care Plan: B12 Pending 04/09/2018 Care Plan: Folate Pending 04/09/2018 Care Plan: Vitamin D 25 Oh Pending 04/09/2018 Care Plan: Lipid Pending 04/09/2018 Care Plan: SCREENINGMAMMOGRAPHYDIGITAL LOINC : 75657-2 Pending 04/09/2018 Visit Plan: Bronchitis - acute [...] changes. 12/08/2017 [phone] [facility] 12/08/2017 Patient Education: [...] changes. 12/01/2017 [phone] ([facility]) Moderate 12/01/2017 Patient Education: [...] not improving. 10/10/2017 Appointment: Leisa Kirkpatrick WPtel: [address] [place], [place] [phone] (15 min) Moderate 10/10/2017 Patient Education: Patient Medication Summary Completed 10/10/2017 Appointment: Leisa Kirkpatrick WPtel: [phone] (15 min) Moderate 10/06/2017 Visit Plan: Asthma [...] to medications. 09/20/2017 Appointment: Leisa Kirkpatrick WPtel: [phone] [facility] (15 min) Moderate 09/20/2017 Patient Education: Patient [...] spray. 09/12/2017 Appointment: Leisa Kirkpatrick WPtel: [phone] [phone] (15 min) Moderate 09/12/2017 Patient Education: Patient Medication Summary Completed 09/12/2017 Patient Education: Obesity Completed 09/12/2017 Visit Plan: Diverticulitis - rx for antibiotic sent to pt's pharmacy - pt advised to avoid seeds, nuts, popcorn, or any other food which has been proven to upset the pt's stomach. 08/18/2017 App[facility]ment: [phone] ([facility] 08/18/2017 Patient Education: [...] spray. 06/12/2017 App[facility]ment: [phone] [place] (10 min) Simple 06/12/2017 Patient Education: Patient Medication Summary Completed 06/12/2017 Visit Plan: Diverticulitis - rx for antibiotic sent to pt's pharmacy - pt advised to avoid seeds, nuts, popcorn, or any other food which has been proven to upset the pt's stomach. 05/04/2017 App[facility]ment: [phone] ([facility] Complex 05/04/2017 Patient Education: [...] spray. 04/21/2017 [facility]ment: [phone] ([facility]) Moderate 04/21/2017 Patient Education: [...] changes. 03/03/2017 App[facility]ment: [phone] ([facility] Complex 03/03/2017 Patient Education: [...] daily. 02/13/2017 App[facility]ment: [phone] ([facility] [place] Simple 02/13/2017 Patient Education: [...] spray. 02/09/2017 [facility]ment: [phone] ([facility] [place]) Moderate 02/09/2017 Patient Education: Patient [...] spray. 12/14/2016 Appointment: Leisa [id number] (15 min) Moderate 12/14/2016 Patient Education: [...] improving. 12/05/2016 App[facility]ment: [id number] ([facility] min) Complex 12/05/2016 Patient Education: [...] acute changes. 09/23/2016 App[facility]ment: [id number] (30 min) Complex 09/23/2016 Patient Education: [...] improvement. Allerg ies/asthma - pt sees an asset specialist who recently started her on Qvar and dexilant. They are referring her to pulmonology (Dr. Mcconnell) - pt is to notify clinic with any questions or concerns. 07/08/2016 Appointment: [facility] [phone] [id number] (15 min) Moderate 07/08/2016 Patient Education: [...] medications. 06/17/2016 App[facility]ment: [phone] [id number] New Patient 06/17/2016 Patient Education: Patient [...] show improvement. Allergies/asthma - pt sees an asset specialist who recently started her on Qvar [...]
--- OUTSIDE RECORDS SUMMARY | 2019-03-30 10:30 | XMS REPORT | CCD ---
Author Author Leisa Kirkpatrick MD, [facility] Address [address] [place] [address] Phone Care Team Providers Care Country Manager Name Role Phone PP Unavailable CCM Unavailable Summary Purpose Interface Exchange Insurance Providers Payer name Policy type / Coverage type Covered constitution party ID Effective Begin Date Effective End Date [facility] [id number] Unknown Family history Father Diagnosis Age At Onset Heart Attack Unknown genetic disease Unknown Skin cancer Unknown Hypertension Unknown Mother Diagnosis Age At Onset Stroke Unknown Daughter Diagnosis Age At Onset Asthma Unknown Arthritis Unknown Social History Social History Element Codes Description Effective Dates Marital status Unknown Lev 10/10/2017 Number of children Unknown 2 06/17/[address]: 307869752 Never smoker 06/17/2016 Alcohol history Unknown occasionally drinks alcohol 06/17/2016 Allergies, Adverse Reactions, Alerts Substance Reaction Codes Entered Date Inactivated Date Status ceclor RxNorm: 2176 06/17/2016 No Inactive Date Active CODEINE RxNorm: 2670 06/17/2016 No Inactive Date Active Past Medical History Illness Codes Condition Status Onset Date Resolved Date Localized edema ICD-9: 782.3 ICD-10: R60.0 Active [...] Problems Condition Codes Effective Dates Condition Status Localized edema ICD-9: 782.3 ICD-10: R60.0 01/23/2019 [...] Start Date Stop Date Status Fill Instructions clotrimazole 1 % topical cream RxNorm: 696186 1 Application TOP BID 01/23/2019 No Stop Date Active Tamiflu 75 mg capsule RxNorm: 231526 1 Capsule(s) PO daily 01/11/2019 01/20/2019 Inactive Tamiflu 75 mg capsule RxNorm: 628363 1 Capsule(s) PO daily 01/11/2019 01/10/2019 Inactive losartan 25 mg tablet RxNorm: 423215 1 Tablet(s) PO daily 12/24/2018 04/22/2019 Active losartan 25 mg tablet RxNorm: 363398 1 Tablet(s) PO daily 12/24/2018 12/23/2018 Inactive Zithromax Z-Maykel 250 mg tablet RxNorm: 287162 1 Tablet(s) PO UD 10/05/2018 10/09/2018 Inactive prednisone 20 mg tablet RxNorm: 511240 2 Tablet(s) PO daily 10/05/2018 10/09/2018 Inactive Zantac 150 mg tablet RxNorm: 565088 TAKE 1 TABLET BY MOUTH TWICE DAILY 08/22/2018 08/16/2019 Active Generic For:*ZANTAC 150 MG TABLET 08/22/2018 10:42:54 AM lisinopril 10 mg tablet RxNorm: 241754 TAKE 1 TABLET BY MOUTH DAILY 08/22/2018 12/24/2018 Inactive Generic For:ZESTRIL 10 MG TABLET 08/22/2018 10:43:05 AM prednisone 10 mg tablet RxNorm: 817523 Tablet(s) PO 07/24/2018 No Stop Date Active 40,40,30,30,20,20,10,10,5mg every other day x 2 doses Zithromax Z-Maykel 250 mg tablet RxNorm: 011944 1 Tablet(s) PO UD 07/24/2018 10/04/2018 Inactive Protonix 20 mg tablet,delayed release RxNorm: 480833 1 Tablet(s) PO BID 05/23/2018 11/18/2018 Inactive acyclovir 400 mg tablet RxNorm: 325380 2 Tablet(s) PO QID 05/07/2018 05/16/2018 Inactive doxycycline hyclate 100 mg capsule RxNorm: 4136977 1 Capsule(s) PO BID 04/20/2018 04/29/2018 Inactive Bactrim DS 800 mg-160 mg tablet RxNorm: 368978 1 Tablet(s) PO BID 04/16/2018 04/18/2018 Inactive Bactrim DS 800 mg-160 mg tablet RxNorm: 900560 1 Tablet(s) PO BID 04/09/2018 04/15/2018 Inactive lisinopril 10 mg tablet RxNorm: 975354 TAKE 1 TABLET BY MOUTH DAILY 02/21/2018 08/19/2018 Inactive Generic For:ZESTRIL 10 MG TABLET 02/21/2018 11:39:12 AM prednisone 10 mg tablet RxNorm: 338652 Tablet(s) PO 60mg x 2 days, then 40mg x 2 days, then 20mg x 2 days, the 10mg x 2 days, then 5mg every other day x 2 doses 12/08/2017 No Stop Date Active disp qty sufficient doxycycline hyclate 100 mg capsule RxNorm: 5669681 1 Capsule(s) PO BID 12/08/2017 12/17/2017 Inactive albuterol sulfate 2.5 mg/3 mL (0.083 %) solution for nebulization RxNorm: 986883 3 Milliliter(s) INH Q4-6H 12/06/2017 No Stop Date Active prednisone 20 mg tablet RxNorm: 967911 Tablet(s) PO 40mg x 2 days, then 20mg x 2 days, then 10mg x 2 days 12/01/2017 No Stop Date Active Zithromax Z-Maykel 250 mg tablet RxNorm: 027533 1 Tablet(s) PO UD 12/01/2017 04/15/2018 Inactive levocetirizine 5 mg tablet RxNorm: 516005 1 Tablet(s) PO daily 11/13/2017 05/11/2018 Inactive Protonix 20 mg tablet,delayed release RxNorm: 498934 1 Tablet(s) PO BID 11/13/2017 05/11/2018 Inactive Protonix 20 mg tablet,delayed release RxNorm: 990273 1 Tablet(s) PO BID 10/10/2017 11/08/2017 Inactive Tessalon Perles 100 mg capsule RxNorm: 523710 1-2 Capsule(s) PO TID as needed 10/10/2017 10/14/2017 Inactive prednisone 20 mg tablet RxNorm: 195097 Tablet(s) PO 40mg x 2 days, then 20mg x 2 days, then 10mg x 2 days 09/20/2017 11/30/2017 Inactive doxycycline hyclate 100 mg capsule RxNorm: 5842425 1 Capsule(s) PO BID 09/20/2017 09/26/2017 Inactive Zithromax Z-Maykel 250 mg tablet RxNorm: 304938 1 Tablet(s) PO UD 09/12/2017 10/09/2017 Inactive albuterol sulfate 2.5 mg/3 mL (0.083 %) solution for nebulization RxNorm: 129824 3 Milliliter(s) INH Q4-6H 09/12/2017 12/05/2017 Inactive prednisone 20 mg tablet RxNorm: 544537 2 Tablet(s) PO daily 09/12/2017 09/16/2017 Inactive lisinopril 10 mg tablet RxNorm: 859056 1 Tablet(s) PO daily 08/28/2017 02/20/2018 Inactive Zantac 150 mg tablet RxNorm: 423341 1 Tablet(s) PO BID 08/28/2017 08/21/2018 Inactive Cipro 500 mg tablet RxNorm: 397256 1 Tablet(s) PO BID 08/18/2017 08/26/2017 Inactive metronidazole 500 mg tablet RxNorm: 993738 1 Tablet(s) PO TID 08/18/2017 08/26/2017 Inactive prednisone 20 mg tablet RxNorm: 333118 2 Tablet(s) PO BID 06/12/2017 06/16/2017 Inactive Cipro 500 mg tablet RxNorm: 349359 1 Tablet(s) PO BID 05/04/2017 05/13/2017 Inactive metronidazole 500 mg tablet RxNorm: 530059 1 Tablet(s) PO TID 05/04/2017 05/13/2017 Inactive Zantac 150 mg tablet RxNorm: 680891 1 Tablet(s) PO BID 04/27/2017 08/24/2017 Inactive prednisone 20 mg tablet RxNorm: 818355 2 Tablet(s) PO BID start if getting worse 04/21/2017 04/25/2017 Inactive levocetirizine 5 mg tablet RxNorm: 818739 1 Tablet(s) PO daily 04/21/2017 05/20/2017 Inactive prednisone 20 mg tablet RxNorm: 500099 1 Tablet(s) PO BID Start with 1 pill daily and see how effective it is - if still not effective increase to twice a day as discussed 03/03/2017 03/07/2017 Inactive lisinopril 10 mg tablet RxNorm: 254492 1 Tablet(s) PO daily 03/01/2017 08/27/2017 Inactive ciprofloxacin 0.3 % eye drops RxNorm: 069931 2 Drop(s) OPH QID 02/13/2017 02/17/2017 Inactive Zithromax 250 mg tablet RxNorm: 530771 1 Tablet(s) PO daily 02/13/2017 02/15/2017 Inactive Zithromax Z-Maykel 250 mg tablet RxNorm: 328013 1 Tablet(s) PO UD 02/09/2017 02/08/2017 Inactive Zithromax Z-Maykel 250 mg tablet RxNorm: 406222 1 Tablet(s) PO UD 02/09/2017 09/11/2017 Inactive Premarin 0.625 mg/gram vaginal cream RxNorm: 653167 1 Application VAG BIW 12/30/2016 No Stop Date Active Zantac 150 mg tablet RxNorm: 808619 1 Tablet(s) PO BID 12/05/2016 04/03/2017 Inactive prednisone 20 mg tablet RxNorm: 977564 2 Tablet(s) PO daily 12/05/2016 12/09/2016 Inactive Zithromax Z-Maykel 250 mg tablet RxNorm: 832119 Tablet(s) PO UD 12/05/2016 02/08/2017 Inactive lisinopril 10 mg tablet RxNorm: 604110 1 Tablet(s) PO daily 10/31/2016 02/27/2017 Inactive Tessalon Perles 100 mg capsule RxNorm: 194615 2 Capsule(s) PO TID as needed dyspnea 09/23/2016 09/27/2016 Inactive prednisone 20 mg tablet RxNorm: 630337 2 Tablet(s) PO daily 09/23/2016 09/27/2016 Inactive Qvar 80 mcg/actuation Metered Aerosol oral inhaler RxNorm: 932355 1 INH BID started by her mis specialist 08/02/2016 09/12/2016 Inactive Zithromax Z-Maykel 250 mg tablet RxNorm: 924196 Tablet(s) PO UD 07/08/2016 12/04/2016 Inactive Tessalon Perles 100 mg capsule RxNorm: 275653 2 Capsule(s) PO TID as needed dyspnea 07/08/2016 07/12/2016 Inactive prednisone 20 mg tablet RxNorm: 481269 1 Tablet(s) PO UD 07/08/2016 09/22/2016 Inactive Premarin 0.625 mg/gram vaginal cream RxNorm: 523765 1 Application VAG BIW 06/21/2016 12/29/2016 Inactive Dulera 200 mcg-5 mcg/actuation HFA aerosol inhaler RxNorm: 2498406 2 INH Q2H 06/17/2016 No Stop Date Active lisinopril 10 mg tablet RxNorm: 155748 1 Tablet(s) PO daily 06/17/2016 10/14/2016 Inactive olopatadine 0.1 % eye drops RxNorm: 5526362 Drop(s) OPH PRN No Start Date Active ProAir HFA 90 mcg/actuation aerosol inhaler RxNorm: 268452 2 Puff(s) INH PRN No Start Date Active Zyrtec 10 mg capsule RxNorm: 7072519 1 Capsule(s) PO daily No Start Date Active lutein 20 mg capsule RxNorm: 354594 1 Capsule(s) PO daily No Start Date Active [place] Oil 1,000 mg capsule RxNorm: 1 Capsule(s) PO daily No Start Date Active montelukast 10 mg tablet RxNorm: 040999 1 Tablet(s) PO daily No Start Date Active Vitamin D3 1,000 unit capsule RxNorm: 515787 Capsule(s) PO No Start Date Active B12 sublingual RxNorm: 23966 sublingual No Start Date Active pravastatin 20 mg tablet RxNorm: 517421 1 Tablet(s) PO daily No Start Date Active zinc picolinate 50 mg tablet RxNorm: 1 Tablet(s) PO daily No Start Date Active chromium picolinate 200 mcg capsule RxNorm: 038182 1 Capsule(s) PO daily No Start Date Active magnesium RxNorm: 1 PO BID No Start Date Active premarin 0.5% Vaginal cream RxNorm: 1 VAG daily No Start Date Active Xolair 150 mg subcutaneous solution RxNorm: 7086106 1 SQ monthly No Start Date Active folate #7-pc dha-pe hld-NMJY-fvmjgv-IF-multivitamin #46 oral RxNorm: oral No Start Date Active prednisone RxNorm: 8640 miscellaneous No Start Date Active Dulera 200 mcg-5 mcg/actuation HFA aerosol inhaler RxNorm: 8840544 2 INH Q4H No Start Date 06/16/2016 Inactive lisinopril 10 mg tablet RxNorm: 965032 1 Tablet(s) PO daily No Start Date 06/16/2016 Inactive Medication Administered No Medication Administered data Immunizations Vaccine Codes Date Status Influenza CVX: 141 08/20/2018 completed Assessments Condition Codes Effective Dates Tinea unguium ICD-10: B35.1 ICD-9: 110.1 01/23/2019 [...] Visit Reason For Visit Effective Dates Notes edema 01/23/2019 hypertension 01/09/2019 cough 10/05/2018 abdominal [...] Item Code Result Date C A/B FLU [id number] Influenza A Scr TNP:Duplicate Order 07/25/2018 C A/B FLU [id number] Influenza B Scr TNP:Duplicate Order 07/25/2018 C A/B FLU [id number] Influenza Intrp B AG:PRID:PT:NOSE:NOM:IF TNP:Duplicate Order 07/25/2018 C A/B FLU [id number] IC OK? TNP:Duplicate Order 07/25/2018 C RAP A SC [id number] Strep A TNP:Lab Request 02/09/2017 C RAP A SC [id number] IC OK? TNP:Lab Request 02/09/2017 Review of Systems System Result Effective Dates Constitutional No recent illness 01/23/2019 Constitutional No [...] No Procedures data Vital Signs Date Vital 01/23/2019 Blood Pressure 1: 122/64 Code: 8480-6 BMI: 28.8 Code: 11604-1 Heart Rate 1: 105 bpm Height: 5'4" SpO2: 98% Weight: 168 lbs 01/09/2019 Blood Pressure 1: 134/80 Code: 8480-6 BMI: 28.8 Code: 62555-5 Heart Rate 1: 98 bpm Height: 5'4" SpO2: 100% Weight: 168 lbs 10/05/2018 Blood Pressure 1: 150/84 Code: 8480-6 BMI: 29.9 Code: 88213-7 Heart Rate 1: 78 bpm Height: 5'4" SpO2: 91% Weight: 174 lbs 08/20/2018 Blood Pressure 1: 142/86 Code: 8480-6 BMI: 29.9 Code: 71004-1 Heart Rate 1: 79 bpm Height: 5'4" SpO2: 98% Weight: 174 lbs 07/24/2018 Blood Pressure 1: 150/84 Code: 8480-6 BMI: 29.9 Code: 77245-3 Heart Rate 1: 116 bpm Height: 5'4" SpO2: 96% Temperature: 37.0 (C) / 98.6 (F) Weight: 174 lbs 05/07/2018 Blood Pressure 1: 130/80 Code: 8480-6 BMI: 29.9 Code: 29252-5 Heart Rate 1: 93 bpm Height: 5'4" SpO2: 95% Weight: 174 lbs 04/20/2018 Blood Pressure 1: 134/70 Code: 8480-6 Heart Rate 1: 86 bpm Height: SpO2: 98% Weight: 04/09/2018 Blood Pressure 1: 132/76 Code: 8480-6 BMI: 29.5 Code: 62222-3 Heart Rate 1: 80 bpm Height: 5'4" SpO2: 98% Weight: 172 lbs 12/08/2017 Blood Pressure 1: 148/76 Code: 8480-6 BMI: 29.9 Code: 88550-7 Heart Rate 1: 97 bpm Height: 5'4" SpO2: 97% Weight: 174 lbs 12/01/2017 Blood Pressure 1: 124/74 Code: 8480-6 BMI: 29.9 Code: 68064-9 Heart Rate 1: 110 bpm Height: 5'4" SpO2: 97% Temperature: 37.4 (C) / 99.4 (F) Weight: 174 lbs 10/10/2017 Blood Pressure 1: 128/80 Code: 8480-6 BMI: 29.8 Code: 39479-0 Heart Rate 1: 91 bpm Height: 5'4" SpO2: 98% Temperature: 36.5 (C) / 97.7 (F) Weight: 173 lbs 8 oz 09/20/2017 Blood Pressure 1: 152/88 Code: 8480-6 BMI: 29.9 Code: 59747-1 Heart Rate 1: 87 bpm Height: 5'4" SpO2: 96% Weight: 174 lbs 09/12/2017 Blood Pressure 1: 134/74 Code: 8480-6 BMI: 29.9 Code: 72260-7 Heart Rate 1: 90 bpm Height: 5'4" SpO2: 96% Weight: 174 lbs 08/18/2017 Blood Pressure 1: 128/68 Code: 8480-6 Heart Rate 1: 88 bpm Height: SpO2: 97% Weight: 06/12/2017 Blood Pressure 1: 130/70 Code: 8480-6 BMI: 29.2 Code: 55752-0 Heart Rate 1: 94 bpm Height: 5'4" SpO2: 95% Weight: 170 lbs 05/04/2017 Blood Pressure 1: 138/80 Code: 8480-6 BMI: 29.9 Code: 71639-6 Heart Rate 1: 84 bpm Height: 5'4" SpO2: 97% Weight: 174 lbs 04/21/2017 Blood Pressure 1: 130/72 Code: 8480-6 BMI: 29.9 Code: 22367-5 Heart Rate 1: 90 bpm Height: 5'4" SpO2: 96% Weight: 174 lbs 03/03/2017 Blood Pressure 1: 136/78 Code: 8480-6 BMI: 29.9 Code: 31115-3 Heart Rate 1: 91 bpm Height: 5'4" SpO2: 96% Weight: 174 lbs 02/13/2017 Blood Pressure 1: 116/74 Code: 8480-6 BMI: 29.2 Code: 94427-3 Heart Rate 1: 91 bpm Height: 5'4" SpO2: 94% Weight: 170 lbs 02/09/2017 Blood Pressure 1: 120/72 Code: 8480-6 BMI: 29.0 Code: 25400-3 Heart Rate 1: 100 bpm Height: 5'4" SpO2: 97% Temperature: 37.4 (C) / 99.3 (F) Weight: 169 lbs 12/14/2016 Blood Pressure 1: 130/72 Code: 8480-6 BMI: 29.5 Code: 95569-2 Heart Rate 1: 100 bpm Height: 5'4" SpO2: 95% Weight: 172 lbs 12/05/2016 Blood Pressure 1: 136/78 Code: 8480-6 BMI: 29.2 Code: 82354-5 Heart Rate 1: 117 bpm Height: 5'4" SpO2: 97% Weight: 170 lbs 09/23/2016 Blood Pressure 1: 130/74 Code: 8480-6 BMI: 30.2 Code: 55807-7 Heart Rate 1: 102 bpm Height: 5'4" SpO2: 94% Weight: 176 lbs 09/14/2016 Blood Pressure 1: 128/74 Code: 8480-6 BMI: 29.4 Code: 56792-3 Heart Rate 1: 90 bpm Height: 5'4" SpO2: 97% Weight: 171 lbs 07/08/2016 Blood Pressure 1: 118/64 Code: 8480-6 BMI: 28.8 Code: 59948-2 Heart Rate 1: 115 bpm Height: 5'4" SpO2: 97% Weight: 168 lbs 06/17/2016 Blood Pressure 1: 144/86 Code: 8480-6 BMI: 29.5 Code: 96496-8 Heart Rate 1: 94 bpm Height: 5'4" SpO2: 96% Weight: 172 lbs Functional Status No Functional Status data History of Present Illness Symptom Name Status Result Effective Date Notes Onset and Resolution sudden in onset 01/23/2019 [...] data Encounters Encounter Performer Location Codes Date 09488 EST. PATIENT, LEVEL III Diagnosis: Tinea unguium[ICD10: B35.1] Diagnosis: Localized edema[ICD10: R60.0] Leisa Keys MD, [facility] CPT-4: 51825 01/23/2019 83970 EST. PATIENT, LEVEL III Diagnosis: Essential (primary) hypertension[ICD10: I10] Diagnosis: Mixed hyperlipidemia[ICD10: E78.2] Leisa Keys MD, [facility] CPT-4: 62708 01/09/2019 (04740) 84975 EST. PATIENT, LEVEL III Diagnosis: Cough[ICD10: R05] Diagnosis: Moderate persistent asthma with (acute) exacerbation[ICD10: J45.41] Lisseth Keys MD, [facility] CPT-4: 71881 10/05/2018 39038 EST. PATIENT, LEVEL III Diagnosis: Diverticulitis of large intestine without perforation or abscess with bleeding[ICD10: K57.33] Leisa Keys MD, [facility] CPT-4: 30939 08/20/2018 82560 EST. PATIENT, LEVEL IV Diagnosis: Other acute sinusitis[ICD10: J01.80] Diagnosis: Other allergic rhinitis[ICD10: J30.89] Leisa Keys MD, [facility] CPT- 4: 20303 07/24/2018 65864 EST. PATIENT, LEVEL III Diagnosis: Zoster without complications[ICD10: B02.9] Lisseth Keys MD, [facility] CPT-4: 93176 05/07/2018 06499 EST. PATIENT, LEVEL IV Diagnosis: Cough[ICD10: R05] Diagnosis: Fever presenting with conditions classified elsewhere[ICD10: R50.81] Leisa Keys MD, [facility] CPT-4: 13024 04/20/2018 47371 EST. PATIENT, LEVEL III Diagnosis: Other fatigue[ICD10: R53.83] Diagnosis: Vitamin D deficiency, unspecified[ICD10: E55.9] Diagnosis: Paresthesia of skin[ICD10: R20.2] Diagnosis: Mixed hyperlipidemia[ICD10: E78.2] Diagnosis: Cellulitis of left toe[ICD10: L03.032] Diagnosis: Essential (primary) hypertension[ICD10: I10] Leisa Keys MD, [facility] CPT-4: 13630 04/09/2018 54175 EST. PATIENT, LEVEL IV Diagnosis: Acute bronchitis due to other specified organisms[ICD10: J20.8] Diagnosis: Moderate persistent asthma with (acute) exacerbation[ICD10: J45.41] Leisa Keys MD [facility] CPT-4: 85456 12/08/2017 75306 EST. PATIENT, LEVEL IV Diagnosis: Other acute sinusitis[ICD10: J01.80] Diagnosis: Other allergic rhinitis[ICD10: J30.89] Diagnosis: Moderate persistent asthma with (acute) exacerbation[ICD10: J45.41] Leisa Keys MD, [facility] CPT-4: 51448 12/01/2017 85876 EST. PATIENT, LEVEL IV Diagnosis: Moderate persistent asthma with (acute) exacerbation[ICD10: J45.41] Diagnosis: Other allergic rhinitis[ICD10: J30.89] Diagnosis: Gastro-esophageal reflux disease without esophagitis[ICD10: K21.9] Leisa Keys MD, [facility] CPT-4: 37214 10/10/2017 68102 EST. PATIENT, LEVEL III Diagnosis: Moderate persistent asthma with (acute) exacerbation[ICD10: J45.41] Diagnosis: Other allergic rhinitis[ICD10: J30.89] Diagnosis: Mixed hyperlipidemia[ICD10: E78.2] Leisa Keys MD, [facility] CPT-4: 10372 09/20/2017 64301 EST. PATIENT, LEVEL IV Diagnosis: Acute laryngopharyngitis[ICD10: J06.0] Diagnosis: Other acute sinusitis[ICD10: J01.80] Diagnosis: Other allergic rhinitis[ICD10: J30.89] Leisa Keys MD, [facility] CPT- 4: 76420 09/12/2017 39673 EST. PATIENT, LEVEL IV Diagnosis: Diverticulitis of large intestine without perforation or abscess with bleeding[ICD10: K57.33] Leisa Keys MD, [facility] CPT-4: 79183 08/18/2017 25454 EST. PATIENT, LEVEL IV Diagnosis: Other allergic rhinitis[ICD10: J30.89] Diagnosis: Moderate persistent asthma with (acute) exacerbation[ICD10: J45.41] Leisa Keys MD [facility] CPT-4: 39791 06/12/2017 51393 EST. PATIENT, LEVEL IV Diagnosis: Diverticulitis of large intestine without perforation or abscess with bleeding[ICD10: K57.33] Leisa Keys MD [facility] CPT-4: 70016 05/04/2017 36728 EST. PATIENT, LEVEL IV Diagnosis: Other allergic rhinitis[ICD10: J30.89] Diagnosis: Moderate persistent asthma with (acute) exacerbation[ICD10: J45.41] Leisa Keys MD [facility] CPT-4: 39128 04/21/2017 12125 EST. PATIENT, LEVEL III Diagnosis: Moderate persistent asthma with (acute) exacerbation[ICD10: J45.41] Leisa Keys MD [facility] CPT-4: 79589 03/03/2017 36659 EST. PATIENT, LEVEL IV Diagnosis: Moderate persistent asthma, uncomplicated[ICD10: J45.40] Diagnosis: Other mucopurulent conjunctivitis, left eye[ICD10: H10.022] Diagnosis: Acute laryngopharyngitis[ICD10: J06.0] Leisa Keys MD [facility] CPT- 4: 80017 02/13/2017 15963 EST. PATIENT, LEVEL IV Diagnosis: Acute laryngopharyngitis[ICD10: J06.0] Diagnosis: Other acute sinusitis[ICD10: J01.80] Diagnosis: Other allergic rhinitis[ICD10: J30.89] Leisa Keys MD [facility] CPT- 4: 27573 02/09/2017 36884 EST. PATIENT, LEVEL III Diagnosis: Other allergic rhinitis[ICD10: J30.89] Diagnosis: Moderate persistent asthma, uncomplicated[ICD10: J45.40] Leisa Keys MD, [facility] CPT-4: 48806 12/14/2016 93574 EST. PATIENT, LEVEL III Diagnosis: Other acute sinusitis[ICD10: J01.80] Diagnosis: Other allergic rhinitis[ICD10: J30.89] Diagnosis: Moderate persistent asthma, uncomplicated[ICD10: J45.40] Diagnosis: Gastro-esophageal reflux disease without esophagitis[ICD10: K21.9] Leisa Keys MD, [facility] CPT-4: 40842 12/05/2016 39959 EST. PATIENT, LEVEL IV Diagnosis: Other allergic rhinitis[ICD10: J30.89] Diagnosis: Moderate persistent asthma, uncomplicated[ICD10: J45.40] Diagnosis: Cough[ICD10: R05] Leisa Keys MD, [facility] CPT-4: 13960 09/23/2016 50585 EST. PATIENT, LEVEL IV Diagnosis: Moderate persistent asthma, uncomplicated[ICD10: J45.40] Diagnosis: Other allergic rhinitis[ICD10: J30.89] [facility] CPT- 4: 02612 09/14/2016 84381 EST. PATIENT, LEVEL IV Diagnosis: Other acute sinusitis[ICD10: J01.80] [facility] CPT- 4: 14781 07/08/2016 (61718) PREV VISIT NEW AGE 40-64 Diagnosis: Encounter for gynecological examination (general) (routine) without abnormal findings[ICD10: Z01.419] Diagnosis: Moderate persistent asthma, uncomplicated[ICD10: J45.40] Diagnosis: Essential (primary) hypertension[ICD10: I10] Diagnosis: Mixed hyperlipidemia[ICD10: E78.2] [facility] CPT-4: 32003 06/17/2016 Plan of Care Planned Activity Notes Codes Status Date Visit Plan: Edema - pt has been [...] or concerns. 01/23/2019 Appointment: Leisa Kirkpatrick WPtel: [address] [place], [place] [id number] (30 min) Complex 01/23/2019 Patient Education: Patient Medication Summary Completed 01/23/2019 Visit Plan: pt is on chronic antihypertensive medication - the medication has been adjusted down to attempt to alleviate the low blood pressures. 01/09/2019 Appointment: Leisa Kirkpatrick WPtel: [address] [place], [place] [id number] (30 min) Complex 01/09/2019 Patient Education: Patient [...] changes. 10/05/2018 Appointment: Lisseth Greene WPtel: [phone] [phone] (15 min) Moderate 10/05/2018 Patient Education: Patient Medication Summary Completed 10/05/2018 Visit Plan: Diverticulitis - rx for antibiotic sent to pt's pharmacy - pt advised to avoid seeds, nuts, popcorn, or any other food which has been proven to upset the pt's stomach. 08/20/2018 Appointment: Leisa Kirkpatrick WPtel: [facility] (15 min) Moderate 08/20/2018 Patient Education: Patient [...] allergy spray. 07/24/2018 Appointment: Leisa Kirkpatrick WPtel: [address] [place], [place] [address] (15 min) Moderate 07/24/2018 Patient Education: Patient Medication Summary Completed 07/24/2018 Appointment: Leisa Kirkpatrick WPtel: [facility] (30 min) Complex 05/14/2018 Visit [...] contagious. 05/07/2018 Appointment: Lisseth Greene WPtel: [facility] (15 min) Moderate 05/07/2018 Patient Education: Patient [...] or concerns. 04/20/2018 Appointment: Leisa Kirkpatrick WPtel: [facility] (15 min) Moderate 04/20/2018 Patient [...] indicated. 04/09/2018 Appointment: Leisa Kirkpatrick WPtel: [phone] [facility] (15 min) Moderate 04/09/2018 Patient Education: Patient Medication Summary Completed 04/09/2018 Patient Education: Patient Medication Summary Completed 04/09/2018 Care Plan: B12 Pending 04/09/2018 Care Plan: Folate Pending 04/09/2018 Care Plan: Vitamin D 25 Oh Pending 04/09/2018 Care Plan: Lipid Pending 04/09/2018 Care Plan: SCREENINGMAMMOGRAPHYDIGITAL LOINC : 06125-1 Pending 04/09/2018 Visit Plan: Bronchitis - acute [...] changes. 12/08/2017 Appointment: Leisa Kirkpatrick WPtel: [phone] [facility] (30 min) Complex 12/08/2017 Patient Education: Patient [...] acute changes. 12/01/2017 Appointment: Leisa Kirkpatrick WPtel: [address] [place], [place] [id number] (15 min) Moderate 12/01/2017 Patient Education: Patient [...] not improving. 10/10/2017 Appointment: Leisa Kirkpatrick WPtel: [phone] [facility] (15 min) Moderate 10/10/2017 Patient Education: Patient Medication Summary Completed 10/10/2017 [phone] ([facility]) Moderate 10/06/2017 Visit Plan: Asthma [...] medications. 09/20/2017 Appointment: Leisa Kirkpatrick WPtel: [phone] [facility] (15 min) Moderate 09/20/2017 Patient Education: Patient [...] allergy spray. 09/12/2017 Appointment: [phone] [facility] ([facility] min) Moderate 09/12/2017 Patient Education: Patient Medication Summary Completed 09/12/2017 Patient Education: Obesity Completed 09/12/2017 Visit Plan: Diverticulitis - rx for antibiotic sent to pt's pharmacy - pt advised to avoid seeds, nuts, popcorn, or any other food which has been proven to upset the pt's stomach. 08/18/2017 Appointment: [phone] [facility] (30 min) Complex 08/18/2017 Patient [...] spray. 06/12/2017 Appointment: Leisa Kirkpatrick WPtel: [phone] [facility] (10 min) Simple 06/12/2017 Patient Education: Patient Medication Summary Completed 06/12/2017 Visit Plan: Diverticulitis - rx for antibiotic sent to pt's pharmacy - pt advised to avoid seeds, nuts, popcorn, or any other food which has been proven to upset the pt's stomach. 05/04/2017 App[facility]ment[phone] [id number] (30 min) Complex 05/04/2017 Patient [...] spray. 04/21/2017 Appointment: [phone] [facility] (15 min) Moderate 04/21/2017 Patient [...] changes. 03/03/2017 Appointment: Leisa Kirkpatrick WPtel: [phone] [id number] (30 min) Complex 03/03/2017 Patient Education: [...] times daily. 02/13/2017 Appointment: [facility] Kirkpatrick [phone] [facility] (10 min) Simple 02/13/2017 Patient [...] spray. 02/09/2017 Appointment: Leisa Kirkpatrick WPtel: [phone] [facility] (15 min) Moderate 02/09/2017 Patient [...] allergy spray. 12/14/2016 Appointment: [facility] Kirkpatrick [facility] [phone] [facility] (15 min) Moderate 12/14/2016 Patient [...] not improving. 12/05/2016 Appointment: Le[facility] Kirkpatrick [facility]el[phone] [facility] (30 min) [facility] 12/05/2016 Patient Education: Patient Medication Summary Completed [...] acute changes. 09/23/2016 Appointment: Liss[facility] Greene [facility]el[facility] [phone] [id number] (30 min) Complex 09/23/2016 Patient Education: [...] improvement. Allerg ies/asthma - pt sees an mis specialist who recently started her on Qvar and dexilant. They are referring her to pulmonology (Dr. Mcconnell) - pt is to notify clinic with any questions or concerns. 07/08/2016 Appointment: Lisseth Greene WPtel: [id number] (15 min) Moderate 07/08/2016 Patient [...] medications. 06/17/2016 Appointment: Liss[facility] Greene [facility]el[facility] [phone] [id number] New Patient 06/17/2016 Patient Education: Patient Medication Summary Completed 06/17/2016 Care Plan: PAP Pending 06/17/2016 Instructions Comment . Edema - pt has been advised [...] to alleviate the low blood pressures. . Sinusitis - Pt has acute infection - pain in face, maxillary region, Pt informed to use decongestant, RX given to patient, sinus rinses also recommended. Call if symptoms do not show improvement. Allergies/asthma - pt sees an mis specialist who recently started her on Qvar [...]
--- OUTSIDE RECORDS SUMMARY | 2019-03-30 10:33 | XMS REPORT | CCD ---
Author Author Leisa Kirkpatrick MD, [facility] Address [address] [place] [address] Phone Care Team Providers Care Helicopter Crew Chief Name Role Phone PP Unavailable CCM Unavailable Summary Purpose Interface Exchange Insurance Providers Payer name Policy type / Coverage type Covered green party ID Effective Begin Date Effective End Date [facility] [id number] Unknown Family history Father Diagnosis Age At Onset Heart Attack Unknown genetic disease Unknown Skin cancer Unknown Hypertension Unknown Mother Diagnosis Age At Onset Stroke Unknown Daughter Diagnosis Age At Onset Asthma Unknown Arthritis Unknown Social History Social History Element Codes Description Effective Dates Marital status Unknown Lev 10/10/2017 Number of children Unknown 2 06/17/[address]: 679286420 Never smoker 06/17/2016 Alcohol history Unknown occasionally [...] Instructions clotrimazole 1 % topical cream RxNorm: 739783 1 Application TOP BID 01/23/2019 No Stop Date Active Tamiflu 75 mg capsule RxNorm: 272191 1 Capsule(s) PO daily 01/11/2019 01/20/2019 Inactive Tamiflu 75 mg capsule RxNorm: 292298 1 Capsule(s) PO daily 01/11/2019 01/10/2019 Inactive losartan 25 mg tablet RxNorm: 164785 1 Tablet(s) PO daily 12/24/2018 04/22/2019 Active losartan 25 mg tablet RxNorm: 194059 1 Tablet(s) PO daily 12/24/2018 12/23/2018 Inactive Zithromax Z-Maykel 250 mg tablet RxNorm: 304132 1 Tablet(s) PO UD 10/05/2018 10/09/2018 Inactive prednisone 20 mg tablet RxNorm: 890868 2 Tablet(s) PO daily 10/05/2018 10/09/2018 Inactive Zantac 150 mg tablet RxNorm: 397588 TAKE 1 TABLET BY MOUTH TWICE DAILY 08/22/2018 08/16/2019 Active Generic For:*ZANTAC 150 MG TABLET 08/22/2018 10:42:54 AM lisinopril 10 mg tablet RxNorm: 866728 TAKE 1 TABLET BY MOUTH DAILY 08/22/2018 12/24/2018 Inactive Generic For:ZESTRIL 10 MG TABLET 08/22/2018 10:43:05 AM prednisone 10 mg tablet RxNorm: 084991 Tablet(s) PO 07/24/2018 No Stop Date Active 40,40,30,30,20,20,10,10,5mg every other day x 2 doses Zithromax Z-Maykel 250 mg tablet RxNorm: 216766 1 Tablet(s) PO UD 07/24/2018 10/04/2018 Inactive Protonix 20 mg tablet,delayed release RxNorm: 144102 1 Tablet(s) PO BID 05/23/2018 11/18/2018 Inactive acyclovir 400 mg tablet RxNorm: 780933 2 Tablet(s) PO QID 05/07/2018 05/16/2018 Inactive doxycycline hyclate 100 mg capsule RxNorm: 7741743 1 Capsule(s) PO BID 04/20/2018 04/29/2018 Inactive Bactrim DS 800 mg-160 mg tablet RxNorm: 478681 1 Tablet(s) PO BID 04/16/2018 04/18/2018 Inactive Bactrim DS 800 mg-160 mg tablet RxNorm: 868975 1 Tablet(s) PO BID 04/09/2018 04/15/2018 Inactive lisinopril 10 mg tablet RxNorm: 634920 TAKE 1 TABLET BY MOUTH DAILY 02/21/2018 08/19/2018 Inactive Generic For:ZESTRIL 10 MG TABLET 02/21/2018 11:39:12 AM prednisone 10 mg tablet RxNorm: 058384 Tablet(s) PO 60mg x 2 days, then 40mg x 2 days, then 20mg x 2 days, the 10mg x 2 days, then 5mg every other day x 2 doses 12/08/2017 No Stop Date Active disp qty sufficient doxycycline hyclate 100 mg capsule RxNorm: 8905818 1 Capsule(s) PO BID 12/08/2017 12/17/2017 Inactive albuterol sulfate 2.5 mg/3 mL (0.083 %) solution for nebulization RxNorm: 937931 3 Milliliter(s) INH Q4-6H 12/06/2017 No Stop Date Active prednisone 20 mg tablet RxNorm: 241581 Tablet(s) PO 40mg x 2 days, then 20mg x 2 days, then 10mg x 2 days 12/01/2017 No Stop Date Active Zithromax Z-Maykel 250 mg tablet RxNorm: 577677 1 Tablet(s) PO UD 12/01/2017 04/15/2018 Inactive levocetirizine 5 mg tablet RxNorm: 443844 1 Tablet(s) PO daily 11/13/2017 05/11/2018 Inactive Protonix 20 mg tablet,delayed release RxNorm: 003217 1 Tablet(s) PO BID 11/13/2017 05/11/2018 Inactive Protonix 20 mg tablet,delayed release RxNorm: 359773 1 Tablet(s) PO BID 10/10/2017 11/08/2017 Inactive Tessalon Perles 100 mg capsule RxNorm: 765195 1-2 Capsule(s) PO TID as needed 10/10/2017 10/14/2017 Inactive prednisone 20 mg tablet RxNorm: 615741 Tablet(s) PO 40mg x 2 days, then 20mg x 2 days, then 10mg x 2 days 09/20/2017 11/30/2017 Inactive doxycycline hyclate 100 mg capsule RxNorm: 2836203 1 Capsule(s) PO BID 09/20/2017 09/26/2017 Inactive Zithromax Z-Maykel 250 mg tablet RxNorm: 923538 1 Tablet(s) PO UD 09/12/2017 10/09/2017 Inactive albuterol sulfate 2.5 mg/3 mL (0.083 %) solution for nebulization RxNorm: 098553 3 Milliliter(s) INH Q4-6H 09/12/2017 12/05/2017 Inactive prednisone 20 mg tablet RxNorm: 532302 2 Tablet(s) PO daily 09/12/2017 09/16/2017 Inactive lisinopril 10 mg tablet RxNorm: 391372 1 Tablet(s) PO daily 08/28/2017 02/20/2018 Inactive Zantac 150 mg tablet RxNorm: 324368 1 Tablet(s) PO BID 08/28/2017 08/21/2018 Inactive Cipro 500 mg tablet RxNorm: 459494 1 Tablet(s) PO BID 08/18/2017 08/26/2017 Inactive metronidazole 500 mg tablet RxNorm: 897792 1 Tablet(s) PO TID 08/18/2017 08/26/2017 Inactive prednisone 20 mg tablet RxNorm: 690726 2 Tablet(s) PO BID 06/12/2017 06/16/2017 Inactive Cipro 500 mg tablet RxNorm: 051247 1 Tablet(s) PO BID 05/04/2017 05/13/2017 Inactive metronidazole 500 mg tablet RxNorm: 151308 1 Tablet(s) PO TID 05/04/2017 05/13/2017 Inactive Zantac 150 mg tablet RxNorm: 018760 1 Tablet(s) PO BID 04/27/2017 08/24/2017 Inactive prednisone 20 mg tablet RxNorm: 502238 2 Tablet(s) PO BID start if getting worse 04/21/2017 04/25/2017 Inactive levocetirizine 5 mg tablet RxNorm: 692166 1 Tablet(s) PO daily 04/21/2017 05/20/2017 Inactive prednisone 20 mg tablet RxNorm: 827596 1 Tablet(s) PO BID Start with 1 pill daily and see how effective it is - if still not effective increase to twice a day as discussed 03/03/2017 03/07/2017 Inactive lisinopril 10 mg tablet RxNorm: 765090 1 Tablet(s) PO daily 03/01/2017 08/27/2017 Inactive ciprofloxacin 0.3 % eye drops RxNorm: 055377 2 Drop(s) OPH QID 02/13/2017 02/17/2017 Inactive Zithromax 250 mg tablet RxNorm: 490186 1 Tablet(s) PO daily 02/13/2017 02/15/2017 Inactive Zithromax Z-Maykel 250 mg tablet RxNorm: 425494 1 Tablet(s) PO UD 02/09/2017 02/08/2017 Inactive Zithromax Z-Maykel 250 mg tablet RxNorm: 303031 1 Tablet(s) PO UD 02/09/2017 09/11/2017 Inactive Premarin 0.625 mg/gram vaginal cream RxNorm: 838674 1 Application VAG BIW 12/30/2016 No Stop Date Active Zantac 150 mg tablet RxNorm: 427722 1 Tablet(s) PO BID 12/05/2016 04/03/2017 Inactive prednisone 20 mg tablet RxNorm: 693226 2 Tablet(s) PO daily 12/05/2016 12/09/2016 Inactive Zithromax Z-Maykel 250 mg tablet RxNorm: 937545 Tablet(s) PO UD 12/05/2016 02/08/2017 Inactive lisinopril 10 mg tablet RxNorm: 660560 1 Tablet(s) PO daily 10/31/2016 02/27/2017 Inactive Tessalon Perles 100 mg capsule RxNorm: 675166 2 Capsule(s) PO TID as needed dyspnea 09/23/2016 09/27/2016 Inactive prednisone 20 mg tablet RxNorm: 659999 2 Tablet(s) PO daily 09/23/2016 09/27/2016 Inactive Qvar 80 mcg/actuation Metered Aerosol oral inhaler RxNorm: 897152 1 INH BID started by her coding support specialist 08/02/2016 09/12/2016 Inactive Zithromax Z-Maykel 250 mg tablet RxNorm: 668604 Tablet(s) PO UD 07/08/2016 12/04/2016 Inactive Tessalon Perles 100 mg capsule RxNorm: 393243 2 Capsule(s) PO TID as needed dyspnea 07/08/2016 07/12/2016 Inactive prednisone 20 mg tablet RxNorm: 532677 1 Tablet(s) PO UD 07/08/2016 09/22/2016 Inactive Premarin 0.625 mg/gram vaginal cream RxNorm: 018118 1 Application VAG BIW 06/21/2016 12/29/2016 Inactive Dulera 200 mcg-5 mcg/actuation HFA aerosol inhaler RxNorm: 2397780 2 INH Q2H 06/17/2016 No Stop Date Active lisinopril 10 mg tablet RxNorm: 922820 1 Tablet(s) PO daily 06/17/2016 10/14/2016 Inactive olopatadine 0.1 % eye drops RxNorm: 9729826 Drop(s) OPH PRN No Start Date Active ProAir HFA 90 mcg/actuation aerosol inhaler RxNorm: 567921 2 Puff(s) INH PRN No Start Date Active Zyrtec 10 mg capsule RxNorm: 8209235 1 Capsule(s) PO daily No Start Date Active lutein 20 mg capsule RxNorm: 833295 1 Capsule(s) PO daily No Start Date Active Elkins Oil 1,000 mg capsule RxNorm: 1 Capsule(s) PO daily No Start Date Active montelukast 10 mg tablet RxNorm: 154849 1 Tablet(s) PO daily No Start Date Active Vitamin D3 1,000 unit capsule RxNorm: 135844 Capsule(s) PO No Start Date Active B12 sublingual RxNorm: 22077 sublingual No Start Date Active pravastatin 20 mg tablet RxNorm: 346791 1 Tablet(s) PO daily No Start Date Active zinc picolinate 50 mg tablet RxNorm: 1 Tablet(s) PO daily No Start Date Active chromium picolinate 200 mcg capsule RxNorm: 585806 1 Capsule(s) PO daily No Start Date Active magnesium RxNorm: 1 PO BID No Start Date Active premarin 0.5% Vaginal cream RxNorm: 1 VAG daily No Start Date Active Xolair 150 mg subcutaneous solution RxNorm: 5984217 1 SQ monthly No Start Date Active folate #7-pc dha-pe gwh-ICMI-xmgncc-IF-multivitamin #46 oral RxNorm: oral No Start Date Active prednisone RxNorm: 8640 miscellaneous No Start Date Active Dulera 200 mcg-5 mcg/actuation HFA aerosol inhaler RxNorm: 1815183 2 INH Q4H No Start Date 06/16/2016 Inactive lisinopril 10 mg tablet RxNorm: 581482 1 Tablet(s) PO daily No Start Date [...] Item Code Result Date C A/B FLU [id number] Influenza A Scr TNP:Duplicate Order 07/25/2018 C A/B FLU [id number] Influenza B Scr TNP:Duplicate Order 07/25/2018 C A/B FLU [id number] Influenza Intrp B AG:PRID:PT:NOSE:NOM:IF TNP:Duplicate Order 07/25/2018 C A/B FLU [id number] IC OK? TNP:Duplicate Order 07/25/2018 C RAP A SC [id number] Strep A TNP:Lab Request 02/09/2017 C RAP A SC [id number] IC OK? TNP:Lab Request 02/09/2017 Review of [...] 1: 122/64 Code: 8480-6 BMI: 28.8 Code: 51627-3 Heart Rate 1: 105 bpm Height: 5'4" SpO2: 98% Weight: 168 lbs 01/09/2019 Blood Pressure 1: 134/80 Code: 8480-6 BMI: 28.8 Code: 49747-7 Heart Rate 1: 98 bpm Height: 5'4" SpO2: 100% Weight: 168 lbs 10/05/2018 Blood Pressure 1: 150/84 Code: 8480-6 BMI: 29.9 Code: 11947-2 Heart Rate 1: 78 bpm Height: 5'4" SpO2: 91% Weight: 174 lbs 08/20/2018 Blood Pressure 1: 142/86 Code: 8480-6 BMI: 29.9 Code: 26092-6 Heart Rate 1: 79 bpm Height: 5'4" SpO2: 98% Weight: 174 lbs 07/24/2018 Blood Pressure 1: 150/84 Code: 8480-6 BMI: 29.9 Code: 78540-8 Heart Rate 1: 116 bpm Height: 5'4" SpO2: 96% Temperature: 37.0 (C) / 98.6 (F) Weight: 174 lbs 05/07/2018 Blood Pressure 1: 130/80 Code: 8480-6 BMI: 29.9 Code: 94754-0 Heart Rate 1: 93 bpm Height: 5'4" SpO2: 95% Weight: 174 lbs 04/20/2018 Blood Pressure 1: 134/70 Code: 8480-6 Heart Rate 1: 86 bpm Height: SpO2: 98% Weight: 04/09/2018 Blood Pressure 1: 132/76 Code: 8480-6 BMI: 29.5 Code: 23806-3 Heart Rate 1: 80 bpm Height: 5'4" SpO2: 98% Weight: 172 lbs 12/08/2017 Blood Pressure 1: 148/76 Code: 8480-6 BMI: 29.9 Code: 53240-6 Heart Rate 1: 97 bpm Height: 5'4" SpO2: 97% Weight: 174 lbs 12/01/2017 Blood Pressure 1: 124/74 Code: 8480-6 BMI: 29.9 Code: 45701-9 Heart Rate 1: 110 bpm Height: 5'4" SpO2: 97% Temperature: 37.4 (C) / 99.4 (F) Weight: 174 lbs 10/10/2017 Blood Pressure 1: 128/80 Code: 8480-6 BMI: 29.8 Code: 98441-2 Heart Rate 1: 91 bpm Height: 5'4" SpO2: 98% Temperature: 36.5 (C) / 97.7 (F) Weight: 173 lbs 8 oz 09/20/2017 Blood Pressure 1: 152/88 Code: 8480-6 BMI: 29.9 Code: 17853-5 Heart Rate 1: 87 bpm Height: 5'4" SpO2: 96% Weight: 174 lbs 09/12/2017 Blood Pressure 1: 134/74 Code: 8480-6 BMI: 29.9 Code: 47347-2 Heart Rate 1: 90 bpm Height: 5'4" SpO2: 96% Weight: 174 lbs 08/18/2017 Blood Pressure 1: 128/68 Code: 8480-6 Heart Rate 1: 88 bpm Height: SpO2: 97% Weight: 06/12/2017 Blood Pressure 1: 130/70 Code: 8480-6 BMI: 29.2 Code: 40978-8 Heart Rate 1: 94 bpm Height: 5'4" SpO2: 95% Weight: 170 lbs 05/04/2017 Blood Pressure 1: 138/80 Code: 8480-6 BMI: 29.9 Code: 07419-7 Heart Rate 1: 84 bpm Height: 5'4" SpO2: 97% Weight: 174 lbs 04/21/2017 Blood Pressure 1: 130/72 Code: 8480-6 BMI: 29.9 Code: 46360-4 Heart Rate 1: 90 bpm Height: 5'4" SpO2: 96% Weight: 174 lbs 03/03/2017 Blood Pressure 1: 136/78 Code: 8480-6 BMI: 29.9 Code: 90501-0 Heart Rate 1: 91 bpm Height: 5'4" SpO2: 96% Weight: 174 lbs 02/13/2017 Blood Pressure 1: 116/74 Code: 8480-6 BMI: 29.2 Code: 17620-0 Heart Rate 1: 91 bpm Height: 5'4" SpO2: 94% Weight: 170 lbs 02/09/2017 Blood Pressure 1: 120/72 Code: 8480-6 BMI: 29.0 Code: 05184-5 Heart Rate 1: 100 bpm Height: 5'4" SpO2: 97% Temperature: 37.4 (C) / 99.3 (F) Weight: 169 lbs 12/14/2016 Blood Pressure 1: 130/72 Code: 8480-6 BMI: 29.5 Code: 27792-2 Heart Rate 1: 100 bpm Height: 5'4" SpO2: 95% Weight: 172 lbs 12/05/2016 Blood Pressure 1: 136/78 Code: 8480-6 BMI: 29.2 Code: 77817-0 Heart Rate 1: 117 bpm Height: 5'4" SpO2: 97% Weight: 170 lbs 09/23/2016 Blood Pressure 1: 130/74 Code: 8480-6 BMI: 30.2 Code: 95184-7 Heart Rate 1: 102 bpm Height: 5'4" SpO2: 94% Weight: 176 lbs 09/14/2016 Blood Pressure 1: 128/74 Code: 8480-6 BMI: 29.4 Code: 28813-9 Heart Rate 1: 90 bpm Height: 5'4" SpO2: 97% Weight: 171 lbs 07/08/2016 Blood Pressure 1: 118/64 Code: 8480-6 BMI: 28.8 Code: 35596-8 Heart Rate 1: 115 bpm Height: 5'4" SpO2: 97% Weight: 168 lbs 06/17/2016 Blood Pressure 1: 144/86 Code: 8480-6 BMI: 29.5 Code: 34235-8 Heart Rate 1: 94 bpm Height: 5'4" [...] data Encounters Encounter Performer Location Codes Date 71005 EST. PATIENT, LEVEL III Diagnosis: Tinea unguium[ICD10: B35.1] Diagnosis: Localized edema[ICD10: R60.0] Leisa Keys MD, [facility] CPT-4: 92238 01/23/2019 65815 EST. PATIENT, LEVEL III Diagnosis: Essential (primary) hypertension[ICD10: I10] Diagnosis: Mixed hyperlipidemia[ICD10: E78.2] Leisa Keys MD, [facility] CPT-4: 09254 01/09/2019 ([id number]) 66006 EST. PATIENT, LEVEL III Diagnosis: Cough[ICD10: R05] Diagnosis: Moderate persistent asthma with (acute) exacerbation[ICD10: J45.41] Lisseth Keys MD, [facility] CPT-4: 22037 10/05/2018 44753 EST. PATIENT, LEVEL III Diagnosis: Diverticulitis of large intestine without perforation or abscess with bleeding[ICD10: K57.33] Leisa Keys MD, [facility] CPT-4: 53895 08/20/2018 71311 EST. PATIENT, LEVEL IV Diagnosis: Other acute sinusitis[ICD10: J01.80] Diagnosis: Other allergic rhinitis[ICD10: J30.89] Leisa Keys MD, [facility] CPT- 4: 53998 07/24/2018 29238 EST. PATIENT, LEVEL III Diagnosis: Zoster without complications[ICD10: B02.9] Lisseth Keys MD, [facility] CPT-4: 52366 05/07/2018 03825 EST. PATIENT, LEVEL IV Diagnosis: Cough[ICD10: R05] Diagnosis: Fever presenting with conditions classified elsewhere[ICD10: R50.81] Leisa Keys MD, [facility] CPT-4: 86378 04/20/2018 04117 EST. PATIENT, LEVEL III Diagnosis: Other fatigue[ICD10: R53.83] Diagnosis: Vitamin D deficiency, unspecified[ICD10: E55.9] Diagnosis: Paresthesia of skin[ICD10: R20.2] Diagnosis: Mixed hyperlipidemia[ICD10: E78.2] Diagnosis: Cellulitis of left toe[ICD10: L03.032] Diagnosis: Essential (primary) hypertension[ICD10: I10] Leisa Keys MD, [facility] CPT-4: 36613 04/09/2018 48383 EST. PATIENT, LEVEL IV Diagnosis: Acute bronchitis due to other specified organisms[ICD10: J20.8] Diagnosis: Moderate persistent asthma with (acute) exacerbation[ICD10: J45.41] Leias Keys MD [facility] CPT-4: 77581 12/08/2017 60669 EST. PATIENT, LEVEL IV Diagnosis: Other acute sinusitis[ICD10: J01.80] Diagnosis: Other allergic rhinitis[ICD10: J30.89] Diagnosis: Moderate persistent asthma with (acute) exacerbation[ICD10: J45.41] Leisa Keys MD, [facility] CPT-4: 19727 12/01/2017 64346 EST. PATIENT, LEVEL IV Diagnosis: Moderate persistent asthma with (acute) exacerbation[ICD10: J45.41] Diagnosis: Other allergic rhinitis[ICD10: J30.89] Diagnosis: Gastro-esophageal reflux disease without esophagitis[ICD10: K21.9] Leisa Keys MD, [facility] CPT-4: 42632 10/10/2017 69301 EST. PATIENT, LEVEL III Diagnosis: Moderate persistent asthma with (acute) exacerbation[ICD10: J45.41] Diagnosis: Other allergic rhinitis[ICD10: J30.89] Diagnosis: Mixed hyperlipidemia[ICD10: E78.2] Leisa Keys MD, [facility] CPT-4: 93380 09/20/2017 89940 EST. PATIENT, LEVEL IV Diagnosis: Acute laryngopharyngitis[ICD10: J06.0] Diagnosis: Other acute sinusitis[ICD10: J01.80] Diagnosis: Other allergic rhinitis[ICD10: J30.89] Leisa Keys MD, [facility] CPT- 4: 22606 09/12/2017 54600 EST. PATIENT, LEVEL IV Diagnosis: Diverticulitis of large intestine without perforation or abscess with bleeding[ICD10: K57.33] eLisa Keys MD, [facility] CPT-4: 12419 08/18/2017 91181 EST. PATIENT, LEVEL IV Diagnosis: Other allergic rhinitis[ICD10: J30.89] Diagnosis: Moderate persistent asthma with (acute) exacerbation[ICD10: J45.41] Leisa Keys MD [facility] CPT-4: 00792 06/12/2017 95366 EST. PATIENT, LEVEL IV Diagnosis: Diverticulitis of large intestine without perforation or abscess with bleeding[ICD10: K57.33] Leisa Keys MD [facility] CPT-4: 33336 05/04/2017 53270 EST. PATIENT, LEVEL IV Diagnosis: Other allergic rhinitis[ICD10: J30.89] Diagnosis: Moderate persistent asthma with (acute) exacerbation[ICD10: J45.41] Leisa Keys MD [facility] CPT-4: 11344 04/21/2017 40177 EST. PATIENT, LEVEL III Diagnosis: Moderate persistent asthma with (acute) exacerbation[ICD10: J45.41] Leisa Keys MD [facility] CPT-4: 27844 03/03/2017 86098 EST. PATIENT, LEVEL IV Diagnosis: Moderate persistent asthma, uncomplicated[ICD10: J45.40] Diagnosis: Other mucopurulent conjunctivitis, left eye[ICD10: H10.022] Diagnosis: Acute laryngopharyngitis[ICD10: J06.0] Leisa Keys MD [facility] CPT- 4: 09172 02/13/2017 17663 EST. PATIENT, LEVEL IV Diagnosis: Acute laryngopharyngitis[ICD10: J06.0] Diagnosis: Other acute sinusitis[ICD10: J01.80] Diagnosis: Other allergic rhinitis[ICD10: J30.89] Leisa Keys MD [facility] CPT- 4: 21286 02/09/2017 46623 EST. PATIENT, LEVEL III Diagnosis: Other allergic rhinitis[ICD10: J30.89] Diagnosis: Moderate persistent asthma, uncomplicated[ICD10: J45.40] Leisa Keys MD, [facility] CPT-4: 17564 12/14/2016 06284 EST. PATIENT, LEVEL III Diagnosis: Other acute sinusitis[ICD10: J01.80] Diagnosis: Other allergic rhinitis[ICD10: J30.89] Diagnosis: Moderate persistent asthma, uncomplicated[ICD10: J45.40] Diagnosis: Gastro-esophageal reflux disease without esophagitis[ICD10: K21.9] Leisa Keys MD, [facility] CPT-4: 16905 12/05/2016 31945 EST. PATIENT, LEVEL IV Diagnosis: Other allergic rhinitis[ICD10: J30.89] Diagnosis: Moderate persistent asthma, uncomplicated[ICD10: J45.40] Diagnosis: Cough[ICD10: R05] Leisa Keys MD, [facility] CPT-4: 82634 09/23/2016 44183 EST. PATIENT, LEVEL IV Diagnosis: Moderate persistent asthma, uncomplicated[ICD10: J45.40] Diagnosis: Other allergic rhinitis[ICD10: J30.89] [facility] CPT- 4: 94146 09/14/2016 33407 EST. PATIENT, LEVEL IV Diagnosis: Other acute sinusitis[ICD10: J01.80] [facility] CPT- 4: 78804 07/08/2016 (80504) PREV VISIT NEW AGE 40-64 Diagnosis: Encounter for gynecological examination (general) (routine) without abnormal findings[ICD10: Z01.419] Diagnosis: Moderate persistent asthma, uncomplicated[ICD10: J45.40] Diagnosis: Essential (primary) hypertension[ICD10: I10] Diagnosis: Mixed hyperlipidemia[ICD10: E78.2] [facility] CPT-4: 02358 06/17/2016 Plan of Care Planned Activity Notes [...] or concerns. 01/23/2019 Appointment: Leisa Kirkpatrick WPtel: [address] [place], [place] [id number] (30 min) Complex 01/23/2019 Patient Education: Patient Medication Summary Completed 01/23/2019 Visit Plan: pt is on chronic antihypertensive medication - the medication has been adjusted down to attempt to alleviate the low blood pressures. 01/09/2019 Appointment: Leisa Kirkpatrick WPtel: [address] [place], [place] [id number] (30 min) Complex 01/09/2019 Patient Education: Patient [...] changes. 10/05/2018 Appointment: Lisseth Greene WPtel: [phone] [phone] (15 min) Moderate 10/05/2018 Patient Education: Patient Medication Summary Completed 10/05/2018 Visit Plan: Diverticulitis - rx for antibiotic sent to pt's pharmacy - pt advised to avoid seeds, nuts, popcorn, or any other food which has been proven to upset the pt's stomach. 08/20/2018 Appointment: Leisa Kirkpatrick WPtel: [facility] (15 min) Moderate 08/20/2018 Patient Education: Patient [...] allergy spray. 07/24/2018 Appointment: Leisa Kirkpatrick WPtel: [address] [place], [place] [id number] (15 min) Moderate 07/24/2018 Patient Education: Patient Medication Summary Completed 07/24/2018 Appointment: Leisa Kirkpatrick WPtel: [facility] (30 min) Complex 05/14/2018 Visit Plan: Shingles [...] considered contagious. 05/07/2018 Appointment: Lisseth Greene WPtel: [phone] (15 min) Moderate 05/07/2018 Patient Education: [...] or concerns. 04/20/2018 Appointment: Leisa Kirkpatrick WPtel: [facility] [facility] (15 min) Moderate 04/20/2018 Patient Education: Patient [...] indicated. 04/09/2018 Appointment: Leisa Kirkpatrick WPtel: [phone] [facility] (15 min) Moderate 04/09/2018 Patient Education: Patient Medication Summary Completed 04/09/2018 Patient Education: Patient Medication Summary Completed 04/09/2018 Care Plan: B12 Pending 04/09/2018 Care Plan: Folate Pending 04/09/2018 Care Plan: Vitamin D 25 Oh Pending 04/09/2018 Care Plan: Lipid Pending 04/09/2018 Care Plan: SCREENINGMAMMOGRAPHYDIGITAL LOINC : 46606-9 Pending 04/09/2018 Visit Plan: Bronchitis - acute [...] changes. 12/08/2017 Appointment: Leisa Kirkpatrick WPtel: [phone] [facility] (30 min) Complex 12/08/2017 Patient Education: Patient [...] acute changes. 12/01/2017 Appointment: Leisa Kirkpatrick WPtel: [address] [place] [id number] (15 min) Moderate 12/01/2017 Patient Education: Patient [...] not improving. 10/10/2017 Appointment: Leisa Kirkpatrick WPtel: [phone] [facility] (15 min) Moderate 10/10/2017 Patient Education: Patient Medication Summary Completed 10/10/2017 App[facility]ment: [facility] [phone] [facility] ([facility] min) Moderate 10/06/2017 Visit Plan: Asthma [...] to medications. 09/20/2017 Appointment: Leisa Kirkpatrick WPtel: [phone] [facility] (15 min) Moderate 09/20/2017 Patient Education: Patient [...] allergy spray. 09/12/2017 Appointment: [facility] [phone] [facility] ([facility] [place]) Moderate 09/12/2017 Patient Education: Patient Medication Summary Completed 09/12/2017 Patient Education: Obesity Completed 09/12/2017 Visit Plan: Diverticulitis - rx for antibiotic sent to pt's pharmacy - pt advised to avoid seeds, nuts, popcorn, or any other food which has been proven to upset the pt's stomach. 08/18/2017 Appointment: [facility] [phone] [facility] ([facility]) Complex 08/18/2017 Patient Education: Patient [...] spray. 06/12/2017 Appointment: Leisa Kirkpatrick WPtel: [phone] [facility] (10 min) Simple 06/12/2017 Patient Education: Patient Medication Summary Completed 06/12/2017 Visit Plan: Diverticulitis - rx for antibiotic sent to pt's pharmacy - pt advised to avoid seeds, nuts, popcorn, or any other food which has been proven to upset the pt's stomach. 05/04/2017 Appointment: [facility] [phone] [facility] ([facility] [place]) Complex 05/04/2017 Patient Education: Patient [...] spray. 04/21/2017 Appointment: [facility] [phone] [facility] (15 min) Moderate 04/21/2017 Patient Education: Patient [...] changes. 03/03/2017 Appointment: Leisa Kirkpatrick WPtel: [phone] [facility] (30 min) Complex 03/03/2017 Patient Education: Patient [...] times daily. 02/13/2017 Appointment: [facility] [phone] [facility] (10 min) Simple 02/13/2017 Patient Education: Patient [...] allergy spray. 02/09/2017 Appointment: Leisa Kirkpatrick WPtel: [phone] [facility] (15 min) Moderate 02/09/2017 Patient Education: Patient [...] allergy spray. 12/14/2016 Appointment: [facility] [phone] [facility] ([facility] min) Moderate 12/14/2016 Patient Education: Patient [...] not improving. 12/05/2016 Appointment: [facility] Kirkpatrick [facility] [address] [facility] ([facility]) [facility] 12/05/2016 Patient Education: Patient Medication Summary Completed [...] changes. 09/23/2016 Appointment: Lisseth Greene [facility] [id number] [id number] (30 min) Complex 09/23/2016 Patient Education: Patient [...] improvement. Allerg ies/asthma - pt sees an coding support specialist who recently started her on Qvar and dexilant. They are referring her to pulmonology (Dr. Mcconnell) - pt is to notify clinic with any questions or concerns. 07/08/2016 Appointment: Lisseth Greene WPtel: [facility] [id number] (15 min) Moderate 07/08/2016 Patient Education: Patient [...] medications. 06/17/2016 Appointment: Lisseth Greene [facility]el[facility] [phone] [id number] New Patient 06/17/2016 Patient Education: Patient Medication [...] improvement. Allergies/asthma - pt sees an coding support specialist who recently started her on [...]
--- OUTSIDE RECORDS SUMMARY | 2019-03-30 10:35 | XMS REPORT | CCD ---
Author Author Leisa Kirkpatrick MD, [facility] Address [address] [place] [address] Phone Care Team Providers Care Credit Specialist Name Role Phone PP Unavailable CCM Unavailable Summary Purpose Interface Exchange Insurance Providers Payer name Policy type / Coverage type Covered constitution party ID Effective Begin Date Effective End Date [facility] [id number] Unknown Family history Father Diagnosis Age At Onset Heart Attack Unknown genetic disease Unknown Skin cancer Unknown Hypertension Unknown Mother Diagnosis Age At Onset Stroke Unknown Daughter Diagnosis Age At Onset Asthma Unknown Arthritis Unknown Social History Social History Element Codes Description Effective Dates Marital status Unknown Lev 10/10/2017 Number of children Unknown 2 06/17/[address]: 558539589 Never smoker 06/17/2016 Alcohol history Unknown occasionally drinks alcohol 06/17/2016 Allergies, Adverse Reactions, Alerts Substance Reaction Codes Entered Date Inactivated Date Status ceclor RxNorm: 2176 06/17/2016 No Inactive Date Active CODEINE RxNorm: 2670 06/17/2016 No Inactive Date Active Past Medical History Illness Codes Condition Status Onset Date Resolved Date Essential (primary) hypertension ICD-9: 401.1 ICD-10: I10 [...] Problems Condition Codes Effective Dates Condition Status Essential (primary) hypertension ICD-9: 401.1 ICD-10: I10 [...] Start Date Stop Date Status Fill Instructions Tamiflu 75 mg capsule RxNorm: 346698 1 Capsule(s) PO daily 01/11/2019 01/20/2019 Inactive Tamiflu 75 mg capsule RxNorm: 186107 1 Capsule(s) PO daily 01/11/2019 01/10/2019 Inactive losartan 25 mg tablet RxNorm: 420347 1 Tablet(s) PO daily 12/24/2018 04/22/2019 Active losartan 25 mg tablet RxNorm: 041658 1 Tablet(s) PO daily 12/24/2018 12/23/2018 Inactive Zithromax Z-Maykel 250 mg tablet RxNorm: 606244 1 Tablet(s) PO UD 10/05/2018 10/09/2018 Inactive prednisone 20 mg tablet RxNorm: 271043 2 Tablet(s) PO daily 10/05/2018 10/09/2018 Inactive Zantac 150 mg tablet RxNorm: 805955 TAKE 1 TABLET BY MOUTH TWICE DAILY 08/22/2018 08/16/2019 Active Generic For:*ZANTAC 150 MG TABLET 08/22/2018 10:42:54 AM lisinopril 10 mg tablet RxNorm: 042826 TAKE 1 TABLET BY MOUTH DAILY 08/22/2018 12/24/2018 Inactive Generic For:ZESTRIL 10 MG TABLET 08/22/2018 10:43:05 AM prednisone 10 mg tablet RxNorm: 467867 Tablet(s) PO 07/24/2018 No Stop Date Active 40,40,30,30,20,20,10,10,5mg every other day x 2 doses Zithromax Z-Maykel 250 mg tablet RxNorm: 461679 1 Tablet(s) PO UD 07/24/2018 10/04/2018 Inactive Protonix 20 mg tablet,delayed release RxNorm: 821077 1 Tablet(s) PO BID 05/23/2018 11/18/2018 Inactive acyclovir 400 mg tablet RxNorm: 711682 2 Tablet(s) PO QID 05/07/2018 05/16/2018 Inactive doxycycline hyclate 100 mg capsule RxNorm: 4448553 1 Capsule(s) PO BID 04/20/2018 04/29/2018 Inactive Bactrim DS 800 mg-160 mg tablet RxNorm: 662506 1 Tablet(s) PO BID 04/16/2018 04/18/2018 Inactive Bactrim DS 800 mg-160 mg tablet RxNorm: 063692 1 Tablet(s) PO BID 04/09/2018 04/15/2018 Inactive lisinopril 10 mg tablet RxNorm: 868843 TAKE 1 TABLET BY MOUTH DAILY 02/21/2018 08/19/2018 Inactive Generic For:ZESTRIL 10 MG TABLET 02/21/2018 11:39:12 AM prednisone 10 mg tablet RxNorm: 071176 Tablet(s) PO 60mg x 2 days, then 40mg x 2 days, then 20mg x 2 days, the 10mg x 2 days, then 5mg every other day x 2 doses 12/08/2017 No Stop Date Active disp qty sufficient doxycycline hyclate 100 mg capsule RxNorm: 4042734 1 Capsule(s) PO BID 12/08/2017 12/17/2017 Inactive albuterol sulfate 2.5 mg/3 mL (0.083 %) solution for nebulization RxNorm: 193364 3 Milliliter(s) INH Q4-6H 12/06/2017 No Stop Date Active prednisone 20 mg tablet RxNorm: 198544 Tablet(s) PO 40mg x 2 days, then 20mg x 2 days, then 10mg x 2 days 12/01/2017 No Stop Date Active Zithromax Z-Maykel 250 mg tablet RxNorm: 436848 1 Tablet(s) PO UD 12/01/2017 04/15/2018 Inactive levocetirizine 5 mg tablet RxNorm: 930974 1 Tablet(s) PO daily 11/13/2017 05/11/2018 Inactive Protonix 20 mg tablet,delayed release RxNorm: 816931 1 Tablet(s) PO BID 11/13/2017 05/11/2018 Inactive Protonix 20 mg tablet,delayed release RxNorm: 907190 1 Tablet(s) PO BID 10/10/2017 11/08/2017 Inactive Tessalon Perles 100 mg capsule RxNorm: 962232 1-2 Capsule(s) PO TID as needed 10/10/2017 10/14/2017 Inactive prednisone 20 mg tablet RxNorm: 608876 Tablet(s) PO 40mg x 2 days, then 20mg x 2 days, then 10mg x 2 days 09/20/2017 11/30/2017 Inactive doxycycline hyclate 100 mg capsule RxNorm: 0715606 1 Capsule(s) PO BID 09/20/2017 09/26/2017 Inactive Zithromax Z-Maykel 250 mg tablet RxNorm: 234178 1 Tablet(s) PO UD 09/12/2017 10/09/2017 Inactive albuterol sulfate 2.5 mg/3 mL (0.083 %) solution for nebulization RxNorm: 526744 3 Milliliter(s) INH Q4-6H 09/12/2017 12/05/2017 Inactive prednisone 20 mg tablet RxNorm: 989364 2 Tablet(s) PO daily 09/12/2017 09/16/2017 Inactive lisinopril 10 mg tablet RxNorm: 217350 1 Tablet(s) PO daily 08/28/2017 02/20/2018 Inactive Zantac 150 mg tablet RxNorm: 435208 1 Tablet(s) PO BID 08/28/2017 08/21/2018 Inactive Cipro 500 mg tablet RxNorm: 964167 1 Tablet(s) PO BID 08/18/2017 08/26/2017 Inactive metronidazole 500 mg tablet RxNorm: 869888 1 Tablet(s) PO TID 08/18/2017 08/26/2017 Inactive prednisone 20 mg tablet RxNorm: 870825 2 Tablet(s) PO BID 06/12/2017 06/16/2017 Inactive Cipro 500 mg tablet RxNorm: 290085 1 Tablet(s) PO BID 05/04/2017 05/13/2017 Inactive metronidazole 500 mg tablet RxNorm: 565467 1 Tablet(s) PO TID 05/04/2017 05/13/2017 Inactive Zantac 150 mg tablet RxNorm: 093509 1 Tablet(s) PO BID 04/27/2017 08/24/2017 Inactive prednisone 20 mg tablet RxNorm: 526114 2 Tablet(s) PO BID start if getting worse 04/21/2017 04/25/2017 Inactive levocetirizine 5 mg tablet RxNorm: 041476 1 Tablet(s) PO daily 04/21/2017 05/20/2017 Inactive prednisone 20 mg tablet RxNorm: 248920 1 Tablet(s) PO BID Start with 1 pill daily and see how effective it is - if still not effective increase to twice a day as discussed 03/03/2017 03/07/2017 Inactive lisinopril 10 mg tablet RxNorm: 045061 1 Tablet(s) PO daily 03/01/2017 08/27/2017 Inactive ciprofloxacin 0.3 % eye drops RxNorm: 335934 2 Drop(s) OPH QID 02/13/2017 02/17/2017 Inactive Zithromax 250 mg tablet RxNorm: 684884 1 Tablet(s) PO daily 02/13/2017 02/15/2017 Inactive Zithromax Z-Maykel 250 mg tablet RxNorm: 078704 1 Tablet(s) PO UD 02/09/2017 02/08/2017 Inactive Zithromax Z-Maykel 250 mg tablet RxNorm: 869879 1 Tablet(s) PO UD 02/09/2017 09/11/2017 Inactive Premarin 0.625 mg/gram vaginal cream RxNorm: 329228 1 Application VAG BIW 12/30/2016 No Stop Date Active Zantac 150 mg tablet RxNorm: 163581 1 Tablet(s) PO BID 12/05/2016 04/03/2017 Inactive prednisone 20 mg tablet RxNorm: 276414 2 Tablet(s) PO daily 12/05/2016 12/09/2016 Inactive Zithromax Z-Maykel 250 mg tablet RxNorm: 261323 Tablet(s) PO UD 12/05/2016 02/08/2017 Inactive lisinopril 10 mg tablet RxNorm: 918982 1 Tablet(s) PO daily 10/31/2016 02/27/2017 Inactive Tessalon Perles 100 mg capsule RxNorm: 627501 2 Capsule(s) PO TID as needed dyspnea 09/23/2016 09/27/2016 Inactive prednisone 20 mg tablet RxNorm: 012698 2 Tablet(s) PO daily 09/23/2016 09/27/2016 Inactive Qvar 80 mcg/actuation Metered Aerosol oral inhaler RxNorm: 759400 1 INH BID started by her machine specialist 08/02/2016 09/12/2016 Inactive Zithromax Z-Maykel 250 mg tablet RxNorm: 209717 Tablet(s) PO UD 07/08/2016 12/04/2016 Inactive Tessalon Perles 100 mg capsule RxNorm: 062220 2 Capsule(s) PO TID as needed dyspnea 07/08/2016 07/12/2016 Inactive prednisone 20 mg tablet RxNorm: 493622 1 Tablet(s) PO UD 07/08/2016 09/22/2016 Inactive Premarin 0.625 mg/gram vaginal cream RxNorm: 967345 1 Application VAG BIW 06/21/2016 12/29/2016 Inactive Dulera 200 mcg-5 mcg/actuation HFA aerosol inhaler RxNorm: 2631663 2 INH Q2H 06/17/2016 No Stop Date Active lisinopril 10 mg tablet RxNorm: 788887 1 Tablet(s) PO daily 06/17/2016 10/14/2016 Inactive olopatadine 0.1 % eye drops RxNorm: 0755850 Drop(s) OPH PRN No Start Date Active ProAir HFA 90 mcg/actuation aerosol inhaler RxNorm: 514871 2 Puff(s) INH PRN No Start Date Active Zyrtec 10 mg capsule RxNorm: 6433017 1 Capsule(s) PO daily No Start Date Active lutein 20 mg capsule RxNorm: 683781 1 Capsule(s) PO daily No Start Date Active Herkimer Oil 1,000 mg capsule RxNorm: 1 Capsule(s) PO daily No Start Date Active montelukast 10 mg tablet RxNorm: 643146 1 Tablet(s) PO daily No Start Date Active Vitamin D3 1,000 unit capsule RxNorm: 449502 Capsule(s) PO No Start Date Active B12 sublingual RxNorm: 12723 sublingual No Start Date Active pravastatin 20 mg tablet RxNorm: 809866 1 Tablet(s) PO daily No Start Date Active zinc picolinate 50 mg tablet RxNorm: 1 Tablet(s) PO daily No Start Date Active chromium picolinate 200 mcg capsule RxNorm: 826176 1 Capsule(s) PO daily No Start Date Active magnesium RxNorm: 1 PO BID No Start Date Active premarin 0.5% Vaginal cream RxNorm: 1 VAG daily No Start Date Active Xolair 150 mg subcutaneous solution RxNorm: 8579311 1 SQ monthly No Start Date Active folate #7-pc dha-pe ryj-XSCY-hhrdpx-IF-multivitamin #46 oral RxNorm: oral No Start Date Active prednisone RxNorm: 8640 miscellaneous No Start Date Active Dulera 200 mcg-5 mcg/actuation HFA aerosol inhaler RxNorm: 4402473 2 INH Q4H No Start Date 06/16/2016 Inactive lisinopril 10 mg tablet RxNorm: 827928 1 Tablet(s) PO daily No Start Date 06/16/2016 Inactive Medication Administered No Medication Administered data Immunizations Vaccine Codes Date Status Influenza CVX: 141 08/20/2018 completed Assessments Condition Codes Effective Dates Essential (primary) hypertension ICD-10: I10 ICD-9: 401.1 [...] Visit Reason For Visit Effective Dates Notes hypertension 01/09/2019 cough 10/05/2018 abdominal pain 08/20/2018 [...] Item Code Result Date C A/B FLU [id number] Influenza A Scr TNP:Duplicate Order 07/25/2018 C A/B FLU [id number] Influenza B Scr TNP:Duplicate Order 07/25/2018 C A/B FLU [id number] Influenza Intrp B AG:PRID:PT:NOSE:NOM:IF TNP:Duplicate Order 07/25/2018 C A/B FLU [id number] IC OK? TNP:Duplicate Order 07/25/2018 C RAP A SC [id number] Strep A TNP:Lab Request 02/09/2017 C RAP A SC [id number] IC OK? TNP:Lab Request 02/09/2017 Review of Systems System Result Effective Dates Constitutional No recent illness 01/09/2019 Constitutional No [...] No Procedures data Vital Signs Date Vital 01/09/2019 Blood Pressure 1: 134/80 Code: 8480-6 BMI: 28.8 Code: 86385-8 Heart Rate 1: 98 bpm Height: 5'4" SpO2: 100% Weight: 168 lbs 10/05/2018 Blood Pressure 1: 150/84 Code: 8480-6 BMI: 29.9 Code: 56582-6 Heart Rate 1: 78 bpm Height: 5'4" SpO2: 91% Weight: 174 lbs 08/20/2018 Blood Pressure 1: 142/86 Code: 8480-6 BMI: 29.9 Code: 29520-9 Heart Rate 1: 79 bpm Height: 5'4" SpO2: 98% Weight: 174 lbs 07/24/2018 Blood Pressure 1: 150/84 Code: 8480-6 BMI: 29.9 Code: 71887-9 Heart Rate 1: 116 bpm Height: 5'4" SpO2: 96% Temperature: 37.0 (C) / 98.6 (F) Weight: 174 lbs 05/07/2018 Blood Pressure 1: 130/80 Code: 8480-6 BMI: 29.9 Code: 54762-5 Heart Rate 1: 93 bpm Height: 5'4" SpO2: 95% Weight: 174 lbs 04/20/2018 Blood Pressure 1: 134/70 Code: 8480-6 Heart Rate 1: 86 bpm Height: SpO2: 98% Weight: 04/09/2018 Blood Pressure 1: 132/76 Code: 8480-6 BMI: 29.5 Code: 56073-5 Heart Rate 1: 80 bpm Height: 5'4" SpO2: 98% Weight: 172 lbs 12/08/2017 Blood Pressure 1: 148/76 Code: 8480-6 BMI: 29.9 Code: 74478-8 Heart Rate 1: 97 bpm Height: 5'4" SpO2: 97% Weight: 174 lbs 12/01/2017 Blood Pressure 1: 124/74 Code: 8480-6 BMI: 29.9 Code: 61676-7 Heart Rate 1: 110 bpm Height: 5'4" SpO2: 97% Temperature: 37.4 (C) / 99.4 (F) Weight: 174 lbs 10/10/2017 Blood Pressure 1: 128/80 Code: 8480-6 BMI: 29.8 Code: 70460-7 Heart Rate 1: 91 bpm Height: 5'4" SpO2: 98% Temperature: 36.5 (C) / 97.7 (F) Weight: 173 lbs 8 oz 09/20/2017 Blood Pressure 1: 152/88 Code: 8480-6 BMI: 29.9 Code: 40664-1 Heart Rate 1: 87 bpm Height: 5'4" SpO2: 96% Weight: 174 lbs 09/12/2017 Blood Pressure 1: 134/74 Code: 8480-6 BMI: 29.9 Code: 38942-9 Heart Rate 1: 90 bpm Height: 5'4" SpO2: 96% Weight: 174 lbs 08/18/2017 Blood Pressure 1: 128/68 Code: 8480-6 Heart Rate 1: 88 bpm Height: SpO2: 97% Weight: 06/12/2017 Blood Pressure 1: 130/70 Code: 8480-6 BMI: 29.2 Code: 41463-6 Heart Rate 1: 94 bpm Height: 5'4" SpO2: 95% Weight: 170 lbs 05/04/2017 Blood Pressure 1: 138/80 Code: 8480-6 BMI: 29.9 Code: 58516-1 Heart Rate 1: 84 bpm Height: 5'4" SpO2: 97% Weight: 174 lbs 04/21/2017 Blood Pressure 1: 130/72 Code: 8480-6 BMI: 29.9 Code: 31844-5 Heart Rate 1: 90 bpm Height: 5'4" SpO2: 96% Weight: 174 lbs 03/03/2017 Blood Pressure 1: 136/78 Code: 8480-6 BMI: 29.9 Code: 21288-5 Heart Rate 1: 91 bpm Height: 5'4" SpO2: 96% Weight: 174 lbs 02/13/2017 Blood Pressure 1: 116/74 Code: 8480-6 BMI: 29.2 Code: 12946-1 Heart Rate 1: 91 bpm Height: 5'4" SpO2: 94% Weight: 170 lbs 02/09/2017 Blood Pressure 1: 120/72 Code: 8480-6 BMI: 29.0 Code: 58260-9 Heart Rate 1: 100 bpm Height: 5'4" SpO2: 97% Temperature: 37.4 (C) / 99.3 (F) Weight: 169 lbs 12/14/2016 Blood Pressure 1: 130/72 Code: 8480-6 BMI: 29.5 Code: 74932-4 Heart Rate 1: 100 bpm Height: 5'4" SpO2: 95% Weight: 172 lbs 12/05/2016 Blood Pressure 1: 136/78 Code: 8480-6 BMI: 29.2 Code: 73872-9 Heart Rate 1: 117 bpm Height: 5'4" SpO2: 97% Weight: 170 lbs 09/23/2016 Blood Pressure 1: 130/74 Code: 8480-6 BMI: 30.2 Code: 52601-2 Heart Rate 1: 102 bpm Height: 5'4" SpO2: 94% Weight: 176 lbs 09/14/2016 Blood Pressure 1: 128/74 Code: 8480-6 BMI: 29.4 Code: 43215-8 Heart Rate 1: 90 bpm Height: 5'4" SpO2: 97% Weight: 171 lbs 07/08/2016 Blood Pressure 1: 118/64 Code: 8480-6 BMI: 28.8 Code: 56157-5 Heart Rate 1: 115 bpm Height: 5'4" SpO2: 97% Weight: 168 lbs 06/17/2016 Blood Pressure 1: 144/86 Code: 8480-6 BMI: 29.5 Code: 59966-2 Heart Rate 1: 94 bpm Height: 5'4" SpO2: 96% Weight: 172 lbs Functional Status No Functional Status data History of Present Illness Symptom Name Status Result Effective Date Notes Onset of Symptom _ weeks ago 01/09/2019 [...] Codes Date EST. PATIENT, LEVEL III Diagnosis: Essential (primary) hypertension[ICD10: I10] Diagnosis: Mixed hyperlipidemia[ICD10: E78.2] Leisa Keys MD, [facility] CPT-4: 60028 01/09/2019 ([id number]) 96861 EST. PATIENT, LEVEL III Diagnosis: Cough[ICD10: R05] Diagnosis: Moderate persistent asthma with (acute) exacerbation[ICD10: J45.41] Lisseth Keys MD, [facility] CPT-4: 98274 10/05/2018 49448 EST. PATIENT, LEVEL III Diagnosis: Diverticulitis of large intestine without perforation or abscess with bleeding[ICD10: K57.33] Leisa Keys MD, [facility] CPT-4: 47483 08/20/2018 82027 EST. PATIENT, LEVEL IV Diagnosis: Other acute sinusitis[ICD10: J01.80] Diagnosis: Other allergic rhinitis[ICD10: J30.89] Leisa Keys MD, [facility] CPT- 4: 58368 07/24/2018 48604 EST. PATIENT, LEVEL III Diagnosis: Zoster without complications[ICD10: B02.9] Lisseth Keys MD, [facility] CPT-4: 24602 05/07/2018 99463 EST. PATIENT, LEVEL IV Diagnosis: Cough[ICD10: R05] Diagnosis: Fever presenting with conditions classified elsewhere[ICD10: R50.81] Leisa Keys MD, [facility] CPT-4: 86125 04/20/2018 98184 EST. PATIENT, LEVEL III Diagnosis: Other fatigue[ICD10: R53.83] Diagnosis: Vitamin D deficiency, unspecified[ICD10: E55.9] Diagnosis: Paresthesia of skin[ICD10: R20.2] Diagnosis: Mixed hyperlipidemia[ICD10: E78.2] Diagnosis: Cellulitis of left toe[ICD10: L03.032] Diagnosis: Essential (primary) hypertension[ICD10: I10] Leisa Keys MD, [facility] CPT-4: 93646 04/09/2018 42420 EST. PATIENT, LEVEL IV Diagnosis: Acute bronchitis due to other specified organisms[ICD10: J20.8] Diagnosis: Moderate persistent asthma with (acute) exacerbation[ICD10: J45.41] Leisa Keys MD, [facility] CPT-4: 66189 12/08/2017 42511 EST. PATIENT, LEVEL IV Diagnosis: Other acute sinusitis[ICD10: J01.80] Diagnosis: Other allergic rhinitis[ICD10: J30.89] Diagnosis: Moderate persistent asthma with (acute) exacerbation[ICD10: J45.41] Leisa Keys MD, [facility] CPT-4: 60675 12/01/2017 35419 EST. PATIENT, LEVEL IV Diagnosis: Moderate persistent asthma with (acute) exacerbation[ICD10: J45.41] Diagnosis: Other allergic rhinitis[ICD10: J30.89] Diagnosis: Gastro-esophageal reflux disease without esophagitis[ICD10: K21.9] Leisa Keys MD, [facility] CPT-4: 24721 10/10/2017 27408 EST. PATIENT, LEVEL III Diagnosis: Moderate persistent asthma with (acute) exacerbation[ICD10: J45.41] Diagnosis: Other allergic rhinitis[ICD10: J30.89] Diagnosis: Mixed hyperlipidemia[ICD10: E78.2] Leisa Keys MD, [facility] CPT-4: 73285 09/20/2017 08746 EST. PATIENT, LEVEL IV Diagnosis: Acute laryngopharyngitis[ICD10: J06.0] Diagnosis: Other acute sinusitis[ICD10: J01.80] Diagnosis: Other allergic rhinitis[ICD10: J30.89] Leisa Keys MD, [facility] CPT- 4: 33471 09/12/2017 41541 EST. PATIENT, LEVEL IV Diagnosis: Diverticulitis of large intestine without perforation or abscess with bleeding[ICD10: K57.33] Leisa Keys MD, [facility] CPT-4: 52935 08/18/2017 25051 EST. PATIENT, LEVEL IV Diagnosis: Other allergic rhinitis[ICD10: J30.89] Diagnosis: Moderate persistent asthma with (acute) exacerbation[ICD10: J45.41] Leisa Keys MD, [facility] CPT-4: 56594 06/12/2017 68317 EST. PATIENT, LEVEL IV Diagnosis: Diverticulitis of large intestine without perforation or abscess with bleeding[ICD10: K57.33] Leisa Keys MD [facility] CPT-4: 68027 05/04/2017 96926 EST. PATIENT, LEVEL IV Diagnosis: Other allergic rhinitis[ICD10: J30.89] Diagnosis: Moderate persistent asthma with (acute) exacerbation[ICD10: J45.41] Leisa Keys MD, [facility] CPT-4: 78705 04/21/2017 67567 EST. PATIENT, LEVEL III Diagnosis: Moderate persistent asthma with (acute) exacerbation[ICD10: J45.41] Leisa Keys MD, [facility] CPT-4: 16855 03/03/2017 51322 EST. PATIENT, LEVEL IV Diagnosis: Moderate persistent asthma, uncomplicated[ICD10: J45.40] Diagnosis: Other mucopurulent conjunctivitis, left eye[ICD10: H10.022] Diagnosis: Acute laryngopharyngitis[ICD10: J06.0] Leisa Keys MD, [facility] CPT- 4: 78230 02/13/2017 23619 EST. PATIENT, LEVEL IV Diagnosis: Acute laryngopharyngitis[ICD10: J06.0] Diagnosis: Other acute sinusitis[ICD10: J01.80] Diagnosis: Other allergic rhinitis[ICD10: J30.89] Leisa Keys MD, [facility] CPT- 4: 72946 02/09/2017 08797 EST. PATIENT, LEVEL III Diagnosis: Other allergic rhinitis[ICD10: J30.89] Diagnosis: Moderate persistent asthma, uncomplicated[ICD10: J45.40] Leisa Keys MD, [facility] CPT-4: 20811 12/14/2016 90576 EST. PATIENT, LEVEL III Diagnosis: Other acute sinusitis[ICD10: J01.80] Diagnosis: Other allergic rhinitis[ICD10: J30.89] Diagnosis: Moderate persistent asthma, uncomplicated[ICD10: J45.40] Diagnosis: Gastro-esophageal reflux disease without esophagitis[ICD10: K21.9] Leisa Keys MD, [facility] CPT-4: 86016 12/05/2016 38200 EST. PATIENT, LEVEL IV Diagnosis: Other allergic rhinitis[ICD10: J30.89] Diagnosis: Moderate persistent asthma, uncomplicated[ICD10: J45.40] Diagnosis: Cough[ICD10: R05] Leisa Keys MD, [facility] CPT-4: 27994 09/23/2016 33215 EST. PATIENT, LEVEL IV Diagnosis: Moderate persistent asthma, uncomplicated[ICD10: J45.40] Diagnosis: Other allergic rhinitis[ICD10: J30.89] Leisa Keys MD, [facility] CPT- 4: 82114 09/14/2016 92796 EST. PATIENT, LEVEL IV Diagnosis: Other acute sinusitis[ICD10: J01.80] Leisa Keys MD, [facility] CPT- 4: 27571 07/08/2016 (89171) PREV VISIT NEW AGE 40-64 Diagnosis: Encounter for gynecological examination (general) (routine) without abnormal findings[ICD10: Z01.419] Diagnosis: Moderate persistent asthma, uncomplicated[ICD10: J45.40] Diagnosis: Essential (primary) hypertension[ICD10: I10] Diagnosis: Mixed hyperlipidemia[ICD10: E78.2] Leisa Keys MD, [facility] CPT-4: 45504 06/17/2016 Plan of Care Planned Activity Notes Codes Status Date Visit Plan: pt is on chronic antihypertensive medication - the medication has been adjusted down to attempt to alleviate the low blood pressures. 01/09/2019 Appointment: Leisa Kirkpatrick WPtel: [address] [place], [place] [id number] (30 min) [facility] 01/09/2019 Patient Education: Patient Medication Summary Completed [...] acute changes. 10/05/2018 Appointment: Lisseth Greene WPtel: [facility][note 3]4 [phone] [place] (15 min) Moderate 10/05/2018 Patient Education: Patient Medication Summary Completed 10/05/2018 Visit Plan: Diverticulitis - rx for antibiotic sent to pt's pharmacy - pt advised to avoid seeds, nuts, popcorn, or any other food which has been proven to upset the pt's stomach. 08/20/2018 Appointment: Leisa Kirkpatrick WPtel: [facility][note 3]9 [facility] (15 min) Moderate 08/20/2018 Patient Education: Patient [...] spray. 07/24/2018 Appointment: [phone] [facility] [place] ([place] min) Moderate 07/24/2018 Patient Education: Patient Medication Summary Completed 07/24/2018 Appointment: Leisa Kirkpatrick WPtel: [facility] 3[facility] ([place] min) Complex 05/14/2018 Visit Plan: Shingles [...] considered contagious. 05/07/2018 Appointment: Lisseth Greene WPtel: [phone] [phone] (15 min) Moderate 05/07/2018 Patient Education: Patient [...] or concerns. 04/20/2018 Appointment: Leisa Kirkpatrick WPtel: [phone] [facility] (15 min) Moderate 04/20/2018 Patient Education: Patient [...] indicated. 04/09/2018 Appointment: [phone] [facility] ([place] min) Moderate 04/09/2018 Patient Education: Patient Medication Summary Completed 04/09/2018 Patient Education: Patient Medication Summary Completed 04/09/2018 Care Plan: B12 Pending 04/09/2018 Care Plan: Folate Pending 04/09/2018 Care Plan: Vitamin D 25 Oh Pending 04/09/2018 Care Plan: Lipid Pending 04/09/2018 Care Plan: SCREENINGMAMMOGRAPHYDIGITAL LOINC : 41551-1 Pending 04/09/2018 Visit Plan: Bronchitis - acute [...] acute changes. 12/08/2017 Appointment: [phone] [facility] ([place] min) Complex 12/08/2017 Patient Education: Patient [...] acute changes. 12/01/2017 Appointment: Leisa Kirkpatrick WPtel: [facility]note 3][facility] (15 min) Moderate 12/01/2017 Patient Education: Patient [...] not improving. 10/10/2017 Appointment: Leisa Kirkpatrick WPtel: [facility][note 3]5 [facility] (15 min) Moderate 10/10/2017 Patient Education: Patient Medication Summary Completed 10/10/2017 Appointment: Leisa Kirkpatrick WPtel: [phone] [facility] (15 min) Moderate 10/06/2017 Visit Plan: Asthma [...] to medications. 09/20/2017 Appointment: Leisa Kirkpatrick WPtel: [facility][note 3]3 [facility] (15 min) Moderate 09/20/2017 Patient Education: Patient [...] allergy spray. 09/12/2017 Appointment: [facility] Kirkpatrick [facility] [phone] [facility] (15 min) Moderate 09/12/2017 Patient Education: Patient Medication Summary Completed 09/12/2017 Patient Education: Obesity Completed 09/12/2017 Visit Plan: Diverticulitis - rx for antibiotic sent to pt's pharmacy - pt advised to avoid seeds, nuts, popcorn, or any other food which has been proven to upset the pt's stomach. 08/18/2017 Appointment: [facility] Kirkpatrick [phone] [facility] ([place] min) Complex 08/18/2017 Patient Education: Patient [...] spray. 06/12/2017 Appointment: Leisa Kirkpatrick WPtel: [phone] [id number] (10 min) Simple 06/12/2017 Patient Education: Patient Medication Summary Completed 06/12/2017 Visit Plan: Diverticulitis - rx for antibiotic sent to pt's pharmacy - pt advised to avoid seeds, nuts, popcorn, or any other food which has been proven to upset the pt's stomach. 05/04/2017 Appointment: Leisa Kirkpatrick WPtel: [phone] [id number] (30 min) Complex 05/04/2017 Patient Education: Patient [...] spray. 04/21/2017 Appointment: Leisa Kirkpatrick WPtel: [phone] [id number] (15 min) Moderate 04/21/2017 Patient Education: Patient [...] changes. 03/03/2017 [facility]ment[id number] ([facility] Complex 03/03/2017 Patient Education: Patient [...] times daily. 02/13/2017 Appointment: [id number] (10 min) Simple 02/13/2017 Patient Education: Patient [...] allergy spray. 02/09/2017 Appointment: Leisa Kirkpatrick WPtel: [address] [place] [address] (15 min) Moderate 02/09/2017 Patient Education: Patient [...] allergy spray. 12/14/2016 Appointment: Leisa Kirkpatrick WPtel: [facility][note 3][address] (15 min) Moderate 12/14/2016 Patient Education: [...] improving. 12/05/2016 Appointment: [id number] ([facility] min) Complex 12/05/2016 Patient Education: Patient [...] changes. 09/23/2016 Appointment: [facility]iss[facility] Greene [id number] [place] (30 min) Complex 09/23/2016 Patient Education: [...] improvement. Allerg ies/asthma - pt sees an machine specialist who recently started her on Qvar and dexilant. They are referring her to pulmonology (Dr. Mcconnell) - pt is to notify clinic with any questions or concerns. 07/08/2016 Appointment: [id number] (15 min) Moderate 07/08/2016 Patient Education: Patient [...] to medications. 06/17/2016 Appointment: [facility] Greene [id number] [place] New Patient 06/17/2016 Patient Education: Patient [...] show improvement. Allergies/asthma - pt sees an machine specialist who recently started her on Qvar and dexilant. They are referring her to pulmonology (Dr. Mcconnell) - pt is to notify clinic with any questions or concerns. . Asthma Exacerbation - Asthma is a [...]
--- OUTSIDE RECORDS SUMMARY | 2019-03-30 10:37 | XMS REPORT | CCD ---
Author Author Leisa Kirkpatrick MD, [facility] Address [address] [place] [address] Phone Care Team Providers Care Manager Credit Collections Name Role Phone PP Unavailable CCM Unavailable Summary Purpose Interface Exchange Insurance Providers Payer name Policy type / Coverage type Covered republican ID Effective Begin Date Effective End Date [facility] [id number] Unknown Family history Father Diagnosis Age At Onset Heart Attack Unknown genetic disease Unknown Skin cancer Unknown Hypertension Unknown Mother Diagnosis Age At Onset Stroke Unknown Daughter Diagnosis Age At Onset Asthma Unknown Arthritis Unknown Social History Social History Element Codes Description Effective Dates Marital status Unknown Lev 10/10/2017 Number of children Unknown 2 06/17/[address]: 716109207 Never smoker 06/17/2016 Alcohol history Unknown occasionally [...] Fill Instructions Tamiflu 75 mg capsule RxNorm: 319282 1 Capsule(s) PO daily 01/11/2019 01/20/2019 Active Tamiflu 75 mg capsule RxNorm: 416948 1 Capsule(s) PO daily 01/11/2019 01/10/2019 Inactive losartan 25 mg tablet RxNorm: 227811 1 Tablet(s) PO daily 12/24/2018 04/22/2019 Active losartan 25 mg tablet RxNorm: 584784 1 Tablet(s) PO daily 12/24/2018 12/23/2018 Inactive Zithromax Z-Maykel 250 mg tablet RxNorm: 243357 1 Tablet(s) PO UD 10/05/2018 10/09/2018 Inactive prednisone 20 mg tablet RxNorm: 077719 2 Tablet(s) PO daily 10/05/2018 10/09/2018 Inactive Zantac 150 mg tablet RxNorm: 266719 TAKE 1 TABLET BY MOUTH TWICE DAILY 08/22/2018 08/16/2019 Active Generic For:*ZANTAC 150 MG TABLET 08/22/2018 10:42:54 AM lisinopril 10 mg tablet RxNorm: 032985 TAKE 1 TABLET BY MOUTH DAILY 08/22/2018 12/24/2018 Inactive Generic For:ZESTRIL 10 MG TABLET 08/22/2018 10:43:05 AM prednisone 10 mg tablet RxNorm: 105947 Tablet(s) PO 07/24/2018 No Stop Date Active 40,40,30,30,20,20,10,10,5mg every other day x 2 doses Zithromax Z-Maykel 250 mg tablet RxNorm: 956397 1 Tablet(s) PO UD 07/24/2018 10/04/2018 Inactive Protonix 20 mg tablet,delayed release RxNorm: 905356 1 Tablet(s) PO BID 05/23/2018 11/18/2018 Inactive acyclovir 400 mg tablet RxNorm: 450614 2 Tablet(s) PO QID 05/07/2018 05/16/2018 Inactive doxycycline hyclate 100 mg capsule RxNorm: 0901556 1 Capsule(s) PO BID 04/20/2018 04/29/2018 Inactive Bactrim DS 800 mg-160 mg tablet RxNorm: 818149 1 Tablet(s) PO BID 04/16/2018 04/18/2018 Inactive Bactrim DS 800 mg-160 mg tablet RxNorm: 375114 1 Tablet(s) PO BID 04/09/2018 04/15/2018 Inactive lisinopril 10 mg tablet RxNorm: 814590 TAKE 1 TABLET BY MOUTH DAILY 02/21/2018 08/19/2018 Inactive Generic For:ZESTRIL 10 MG TABLET 02/21/2018 11:39:12 AM prednisone 10 mg tablet RxNorm: 940147 Tablet(s) PO 60mg x 2 days, then 40mg x 2 days, then 20mg x 2 days, the 10mg x 2 days, then 5mg every other day x 2 doses 12/08/2017 No Stop Date Active disp qty sufficient doxycycline hyclate 100 mg capsule RxNorm: 5920422 1 Capsule(s) PO BID 12/08/2017 12/17/2017 Inactive albuterol sulfate 2.5 mg/3 mL (0.083 %) solution for nebulization RxNorm: 736678 3 Milliliter(s) INH Q4-6H 12/06/2017 No Stop Date Active prednisone 20 mg tablet RxNorm: 523793 Tablet(s) PO 40mg x 2 days, then 20mg x 2 days, then 10mg x 2 days 12/01/2017 No Stop Date Active Zithromax Z-Maykel 250 mg tablet RxNorm: 319894 1 Tablet(s) PO UD 12/01/2017 04/15/2018 Inactive levocetirizine 5 mg tablet RxNorm: 014392 1 Tablet(s) PO daily 11/13/2017 05/11/2018 Inactive Protonix 20 mg tablet,delayed release RxNorm: 623277 1 Tablet(s) PO BID 11/13/2017 05/11/2018 Inactive Protonix 20 mg tablet,delayed release RxNorm: 988061 1 Tablet(s) PO BID 10/10/2017 11/08/2017 Inactive Tessalon Perles 100 mg capsule RxNorm: 044810 1-2 Capsule(s) PO TID as needed 10/10/2017 10/14/2017 Inactive prednisone 20 mg tablet RxNorm: 220735 Tablet(s) PO 40mg x 2 days, then 20mg x 2 days, then 10mg x 2 days 09/20/2017 11/30/2017 Inactive doxycycline hyclate 100 mg capsule RxNorm: 5549178 1 Capsule(s) PO BID 09/20/2017 09/26/2017 Inactive Zithromax Z-Maykel 250 mg tablet RxNorm: 011704 1 Tablet(s) PO UD 09/12/2017 10/09/2017 Inactive albuterol sulfate 2.5 mg/3 mL (0.083 %) solution for nebulization RxNorm: 808694 3 Milliliter(s) INH Q4-6H 09/12/2017 12/05/2017 Inactive prednisone 20 mg tablet RxNorm: 046648 2 Tablet(s) PO daily 09/12/2017 09/16/2017 Inactive lisinopril 10 mg tablet RxNorm: 497672 1 Tablet(s) PO daily 08/28/2017 02/20/2018 Inactive Zantac 150 mg tablet RxNorm: 727042 1 Tablet(s) PO BID 08/28/2017 08/21/2018 Inactive Cipro 500 mg tablet RxNorm: 165995 1 Tablet(s) PO BID 08/18/2017 08/26/2017 Inactive metronidazole 500 mg tablet RxNorm: 246857 1 Tablet(s) PO TID 08/18/2017 08/26/2017 Inactive prednisone 20 mg tablet RxNorm: 588731 2 Tablet(s) PO BID 06/12/2017 06/16/2017 Inactive Cipro 500 mg tablet RxNorm: 049500 1 Tablet(s) PO BID 05/04/2017 05/13/2017 Inactive metronidazole 500 mg tablet RxNorm: 341947 1 Tablet(s) PO TID 05/04/2017 05/13/2017 Inactive Zantac 150 mg tablet RxNorm: 930954 1 Tablet(s) PO BID 04/27/2017 08/24/2017 Inactive prednisone 20 mg tablet RxNorm: 958368 2 Tablet(s) PO BID start if getting worse 04/21/2017 04/25/2017 Inactive levocetirizine 5 mg tablet RxNorm: 852529 1 Tablet(s) PO daily 04/21/2017 05/20/2017 Inactive prednisone 20 mg tablet RxNorm: 339331 1 Tablet(s) PO BID Start with 1 pill daily and see how effective it is - if still not effective increase to twice a day as discussed 03/03/2017 03/07/2017 Inactive lisinopril 10 mg tablet RxNorm: 919460 1 Tablet(s) PO daily 03/01/2017 08/27/2017 Inactive ciprofloxacin 0.3 % eye drops RxNorm: 704687 2 Drop(s) OPH QID 02/13/2017 02/17/2017 Inactive Zithromax 250 mg tablet RxNorm: 178409 1 Tablet(s) PO daily 02/13/2017 02/15/2017 Inactive Zithromax Z-Maykel 250 mg tablet RxNorm: 766319 1 Tablet(s) PO UD 02/09/2017 02/08/2017 Inactive Zithromax Z-Maykel 250 mg tablet RxNorm: 675824 1 Tablet(s) PO UD 02/09/2017 09/11/2017 Inactive Premarin 0.625 mg/gram vaginal cream RxNorm: 958651 1 Application VAG BIW 12/30/2016 No Stop Date Active Zantac 150 mg tablet RxNorm: 365621 1 Tablet(s) PO BID 12/05/2016 04/03/2017 Inactive prednisone 20 mg tablet RxNorm: 412088 2 Tablet(s) PO daily 12/05/2016 12/09/2016 Inactive Zithromax Z-Maykel 250 mg tablet RxNorm: 029486 Tablet(s) PO UD 12/05/2016 02/08/2017 Inactive lisinopril 10 mg tablet RxNorm: 447310 1 Tablet(s) PO daily 10/31/2016 02/27/2017 Inactive Tessalon Perles 100 mg capsule RxNorm: 161366 2 Capsule(s) PO TID as needed dyspnea 09/23/2016 09/27/2016 Inactive prednisone 20 mg tablet RxNorm: 578767 2 Tablet(s) PO daily 09/23/2016 09/27/2016 Inactive Qvar 80 mcg/actuation Metered Aerosol oral inhaler RxNorm: 470318 1 INH BID started by her ignition specialist 08/02/2016 09/12/2016 Inactive Zithromax Z-Maykel 250 mg tablet RxNorm: 226767 Tablet(s) PO UD 07/08/2016 12/04/2016 Inactive Tessalon Perles 100 mg capsule RxNorm: 112605 2 Capsule(s) PO TID as needed dyspnea 07/08/2016 07/12/2016 Inactive prednisone 20 mg tablet RxNorm: 179446 1 Tablet(s) PO UD 07/08/2016 09/22/2016 Inactive Premarin 0.625 mg/gram vaginal cream RxNorm: 011318 1 Application VAG BIW 06/21/2016 12/29/2016 Inactive Dulera 200 mcg-5 mcg/actuation HFA aerosol inhaler RxNorm: 5074301 2 INH Q2H 06/17/2016 No Stop Date Active lisinopril 10 mg tablet RxNorm: 295526 1 Tablet(s) PO daily 06/17/2016 10/14/2016 Inactive olopatadine 0.1 % eye drops RxNorm: 6894369 Drop(s) OPH PRN No Start Date Active ProAir HFA 90 mcg/actuation aerosol inhaler RxNorm: 637547 2 Puff(s) INH PRN No Start Date Active Zyrtec 10 mg capsule RxNorm: 9757801 1 Capsule(s) PO daily No Start Date Active lutein 20 mg capsule RxNorm: 542759 1 Capsule(s) PO daily No Start Date Active [place]on Oil 1,000 mg capsule RxNorm: 1 Capsule(s) PO daily No Start Date Active montelukast 10 mg tablet RxNorm: 034045 1 Tablet(s) PO daily No Start Date Active Vitamin D3 1,000 unit capsule RxNorm: 347321 Capsule(s) PO No Start Date Active B12 sublingual RxNorm: 21602 sublingual No Start Date Active pravastatin 20 mg tablet RxNorm: 291885 1 Tablet(s) PO daily No Start Date Active zinc picolinate 50 mg tablet RxNorm: 1 Tablet(s) PO daily No Start Date Active chromium picolinate 200 mcg capsule RxNorm: 733875 1 Capsule(s) PO daily No Start Date Active magnesium RxNorm: 1 PO BID No Start Date Active premarin 0.5% Vaginal cream RxNorm: 1 VAG daily No Start Date Active Xolair 150 mg subcutaneous solution RxNorm: 2476933 1 SQ monthly No Start Date Active folate #7-pc dha-pe [id number]-IF-multivitamin #46 oral RxNorm: oral No Start Date Active prednisone RxNorm: 8640 miscellaneous No Start Date Active Dulera 200 mcg-5 mcg/actuation HFA aerosol inhaler RxNorm: 6798772 2 INH Q4H No Start Date 06/16/2016 Inactive lisinopril 10 mg tablet RxNorm: 687944 1 Tablet(s) PO daily No Start Date [...] Item Code Result Date C A/B FLU [id number] Influenza A Scr TNP:Duplicate Order 07/25/2018 C A/B FLU [id number] Influenza B Scr TNP:Duplicate Order 07/25/2018 C A/B FLU [id number] Influenza Intrp B AG:PRID:PT:NOSE:NOM:IF TNP:Duplicate Order 07/25/2018 C A/B FLU [id number] IC OK? TNP:Duplicate Order 07/25/2018 C RAP A SC [id number] Strep A TNP:Lab Request 02/09/2017 C RAP A SC [id number] IC OK? TNP:Lab Request 02/09/2017 Review of [...] 1: 134/80 Code: 8480-6 BMI: 28.8 Code: 45283-3 Heart Rate 1: 98 bpm Height: 5'4" SpO2: 100% Weight: 168 lbs 10/05/2018 Blood Pressure 1: 150/84 Code: 8480-6 BMI: 29.9 Code: 90054-8 Heart Rate 1: 78 bpm Height: 5'4" SpO2: 91% Weight: 174 lbs 08/20/2018 Blood Pressure 1: 142/86 Code: 8480-6 BMI: 29.9 Code: 22526-6 Heart Rate 1: 79 bpm Height: 5'4" SpO2: 98% Weight: 174 lbs 07/24/2018 Blood Pressure 1: 150/84 Code: 8480-6 BMI: 29.9 Code: 64098-3 Heart Rate 1: 116 bpm Height: 5'4" SpO2: 96% Temperature: 37.0 (C) / 98.6 (F) Weight: 174 lbs 05/07/2018 Blood Pressure 1: 130/80 Code: 8480-6 BMI: 29.9 Code: 99589-9 Heart Rate 1: 93 bpm Height: 5'4" SpO2: 95% Weight: 174 lbs 04/20/2018 Blood Pressure 1: 134/70 Code: 8480-6 Heart Rate 1: 86 bpm Height: SpO2: 98% Weight: 04/09/2018 Blood Pressure 1: 132/76 Code: 8480-6 BMI: 29.5 Code: 21659-0 Heart Rate 1: 80 bpm Height: 5'4" SpO2: 98% Weight: 172 lbs 12/08/2017 Blood Pressure 1: 148/76 Code: 8480-6 BMI: 29.9 Code: 67112-4 Heart Rate 1: 97 bpm Height: 5'4" SpO2: 97% Weight: 174 lbs 12/01/2017 Blood Pressure 1: 124/74 Code: 8480-6 BMI: 29.9 Code: 84746-0 Heart Rate 1: 110 bpm Height: 5'4" SpO2: 97% Temperature: 37.4 (C) / 99.4 (F) Weight: 174 lbs 10/10/2017 Blood Pressure 1: 128/80 Code: 8480-6 BMI: 29.8 Code: 10572-6 Heart Rate 1: 91 bpm Height: 5'4" SpO2: 98% Temperature: 36.5 (C) / 97.7 (F) Weight: 173 lbs 8 oz 09/20/2017 Blood Pressure 1: 152/88 Code: 8480-6 BMI: 29.9 Code: 95235-2 Heart Rate 1: 87 bpm Height: 5'4" SpO2: 96% Weight: 174 lbs 09/12/2017 Blood Pressure 1: 134/74 Code: 8480-6 BMI: 29.9 Code: 44682-8 Heart Rate 1: 90 bpm Height: 5'4" SpO2: 96% Weight: 174 lbs 08/18/2017 Blood Pressure 1: 128/68 Code: 8480-6 Heart Rate 1: 88 bpm Height: SpO2: 97% Weight: 06/12/2017 Blood Pressure 1: 130/70 Code: 8480-6 BMI: 29.2 Code: 70150-0 Heart Rate 1: 94 bpm Height: 5'4" SpO2: 95% Weight: 170 lbs 05/04/2017 Blood Pressure 1: 138/80 Code: 8480-6 BMI: 29.9 Code: 16993-6 Heart Rate 1: 84 bpm Height: 5'4" SpO2: 97% Weight: 174 lbs 04/21/2017 Blood Pressure 1: 130/72 Code: 8480-6 BMI: 29.9 Code: 01638-3 Heart Rate 1: 90 bpm Height: 5'4" SpO2: 96% Weight: 174 lbs 03/03/2017 Blood Pressure 1: 136/78 Code: 8480-6 BMI: 29.9 Code: 69280-0 Heart Rate 1: 91 bpm Height: 5'4" SpO2: 96% Weight: 174 lbs 02/13/2017 Blood Pressure 1: 116/74 Code: 8480-6 BMI: 29.2 Code: 30123-4 Heart Rate 1: 91 bpm Height: 5'4" SpO2: 94% Weight: 170 lbs 02/09/2017 Blood Pressure 1: 120/72 Code: 8480-6 BMI: 29.0 Code: 75993-5 Heart Rate 1: 100 bpm Height: 5'4" SpO2: 97% Temperature: 37.4 (C) / 99.3 (F) Weight: 169 lbs 12/14/2016 Blood Pressure 1: 130/72 Code: 8480-6 BMI: 29.5 Code: 22939-0 Heart Rate 1: 100 bpm Height: 5'4" SpO2: 95% Weight: 172 lbs 12/05/2016 Blood Pressure 1: 136/78 Code: 8480-6 BMI: 29.2 Code: 66602-7 Heart Rate 1: 117 bpm Height: 5'4" SpO2: 97% Weight: 170 lbs 09/23/2016 Blood Pressure 1: 130/74 Code: 8480-6 BMI: 30.2 Code: 58683-3 Heart Rate 1: 102 bpm Height: 5'4" SpO2: 94% Weight: 176 lbs 09/14/2016 Blood Pressure 1: 128/74 Code: 8480-6 BMI: 29.4 Code: 63597-7 Heart Rate 1: 90 bpm Height: 5'4" SpO2: 97% Weight: 171 lbs 07/08/2016 Blood Pressure 1: 118/64 Code: 8480-6 BMI: 28.8 Code: 17617-4 Heart Rate 1: 115 bpm Height: 5'4" SpO2: 97% Weight: 168 lbs 06/17/2016 Blood Pressure 1: 144/86 Code: 8480-6 BMI: 29.5 Code: 02960-5 Heart Rate 1: 94 bpm Height: 5'4" [...] Diagnosis: Mixed hyperlipidemia[ICD10: E78.2] Leisa Keys MD, [facility] CPT-4: 55575 01/09/2019 ([id number]) 42713 EST. PATIENT, LEVEL III Diagnosis: Cough[ICD10: R05] Diagnosis: Moderate persistent asthma with (acute) exacerbation[ICD10: J45.41] Lisseth Keys MD, [facility] CPT-4: 99468 10/05/2018 26462 EST. PATIENT, LEVEL III Diagnosis: Diverticulitis of large intestine without perforation or abscess with bleeding[ICD10: K57.33] Leisa Keys MD, [facility] CPT-4: 09212 08/20/2018 74276 EST. PATIENT, LEVEL IV Diagnosis: Other acute sinusitis[ICD10: J01.80] Diagnosis: Other allergic rhinitis[ICD10: J30.89] Leisa Keys MD, [facility] CPT- 4: 18619 07/24/2018 44469 EST. PATIENT, LEVEL III Diagnosis: Zoster without complications[ICD10: B02.9] Lisseth Keys MD, [facility] CPT-4: 13032 05/07/2018 29570 EST. PATIENT, LEVEL IV Diagnosis: Cough[ICD10: R05] Diagnosis: Fever presenting with conditions classified elsewhere[ICD10: R50.81] Leisa Keys MD, [facility] CPT-4: 24836 04/20/2018 98643 EST. PATIENT, LEVEL III Diagnosis: Other fatigue[ICD10: R53.83] Diagnosis: Vitamin D deficiency, unspecified[ICD10: E55.9] Diagnosis: Paresthesia of skin[ICD10: R20.2] Diagnosis: Mixed hyperlipidemia[ICD10: E78.2] Diagnosis: Cellulitis of left toe[ICD10: L03.032] Diagnosis: Essential (primary) hypertension[ICD10: I10] Leisa Keys MD, [facility] CPT-4: 99094 04/09/2018 42348 EST. PATIENT, LEVEL IV Diagnosis: Acute bronchitis due to other specified organisms[ICD10: J20.8] Diagnosis: Moderate persistent asthma with (acute) exacerbation[ICD10: J45.41] Leisa Keys MD, [facility] CPT-4: 04633 12/08/2017 58371 EST. PATIENT, LEVEL IV Diagnosis: Other acute sinusitis[ICD10: J01.80] Diagnosis: Other allergic rhinitis[ICD10: J30.89] Diagnosis: Moderate persistent asthma with (acute) exacerbation[ICD10: J45.41] Leisa Keys MD, [facility] CPT-4: 99136 12/01/2017 62384 EST. PATIENT, LEVEL IV Diagnosis: Moderate persistent asthma with (acute) exacerbation[ICD10: J45.41] Diagnosis: Other allergic rhinitis[ICD10: J30.89] Diagnosis: Gastro-esophageal reflux disease without esophagitis[ICD10: K21.9] Leisa Keys MD, [facility] CPT-4: 14974 10/10/2017 42271 EST. PATIENT, LEVEL III Diagnosis: Moderate persistent asthma with (acute) exacerbation[ICD10: J45.41] Diagnosis: Other allergic rhinitis[ICD10: J30.89] Diagnosis: Mixed hyperlipidemia[ICD10: E78.2] Leisa Keys MD, [facility] CPT-4: 78495 09/20/2017 51759 EST. PATIENT, LEVEL IV Diagnosis: Acute laryngopharyngitis[ICD10: J06.0] Diagnosis: Other acute sinusitis[ICD10: J01.80] Diagnosis: Other allergic rhinitis[ICD10: J30.89] Leisa Keys MD, [facility] CPT- 4: 79607 09/12/2017 99476 EST. PATIENT, LEVEL IV Diagnosis: Diverticulitis of large intestine without perforation or abscess with bleeding[ICD10: K57.33] Leisa Keys MD, [facility] CPT-4: 08885 08/18/2017 87792 EST. PATIENT, LEVEL IV Diagnosis: Other allergic rhinitis[ICD10: J30.89] Diagnosis: Moderate persistent asthma with (acute) exacerbation[ICD10: J45.41] Leisa Keys MD, [facility] CPT-4: 25102 06/12/2017 35953 EST. PATIENT, LEVEL IV Diagnosis: Diverticulitis of large intestine without perforation or abscess with bleeding[ICD10: K57.33] Leisa Keys MD [facility] CPT-4: 06508 05/04/2017 63639 EST. PATIENT, LEVEL IV Diagnosis: Other allergic rhinitis[ICD10: J30.89] Diagnosis: Moderate persistent asthma with (acute) exacerbation[ICD10: J45.41] Leisa Keys MD, [facility] CPT-4: 89997 04/21/2017 84696 EST. PATIENT, LEVEL III Diagnosis: Moderate persistent asthma with (acute) exacerbation[ICD10: J45.41] Leisa Keys MD, [facility] CPT-4: 86734 03/03/2017 67773 EST. PATIENT, LEVEL IV Diagnosis: Moderate persistent asthma, uncomplicated[ICD10: J45.40] Diagnosis: Other mucopurulent conjunctivitis, left eye[ICD10: H10.022] Diagnosis: Acute laryngopharyngitis[ICD10: J06.0] Leisa Keys MD, [facility] CPT- 4: 93936 02/13/2017 28147 EST. PATIENT, LEVEL IV Diagnosis: Acute laryngopharyngitis[ICD10: J06.0] Diagnosis: Other acute sinusitis[ICD10: J01.80] Diagnosis: Other allergic rhinitis[ICD10: J30.89] Leisa Keys MD, [facility] CPT- 4: 91854 02/09/2017 75098 EST. PATIENT, LEVEL III Diagnosis: Other allergic rhinitis[ICD10: J30.89] Diagnosis: Moderate persistent asthma, uncomplicated[ICD10: J45.40] Leisa Keys MD, [facility] CPT-4: 23400 12/14/2016 93619 EST. PATIENT, LEVEL III Diagnosis: Other acute sinusitis[ICD10: J01.80] Diagnosis: Other allergic rhinitis[ICD10: J30.89] Diagnosis: Moderate persistent asthma, uncomplicated[ICD10: J45.40] Diagnosis: Gastro-esophageal reflux disease without esophagitis[ICD10: K21.9] Leisa Keys MD, [facility] CPT-4: 78337 12/05/2016 66657 EST. PATIENT, LEVEL IV Diagnosis: Other allergic rhinitis[ICD10: J30.89] Diagnosis: Moderate persistent asthma, uncomplicated[ICD10: J45.40] Diagnosis: Cough[ICD10: R05] Leisa Keys MD, [facility] CPT-4: 35907 09/23/2016 43302 EST. PATIENT, LEVEL IV Diagnosis: Moderate persistent asthma, uncomplicated[ICD10: J45.40] Diagnosis: Other allergic rhinitis[ICD10: J30.89] Leisa Keys MD, [facility] CPT- 4: 60201 09/14/2016 95005 EST. PATIENT, LEVEL IV Diagnosis: Other acute sinusitis[ICD10: J01.80] Leisa Keys MD, [facility] CPT- 4: 84625 07/08/2016 (40424) PREV VISIT NEW AGE 40-64 Diagnosis: Encounter for gynecological examination (general) (routine) without abnormal findings[ICD10: Z01.419] Diagnosis: Moderate persistent asthma, uncomplicated[ICD10: J45.40] Diagnosis: Essential (primary) hypertension[ICD10: I10] Diagnosis: Mixed hyperlipidemia[ICD10: E78.2] Leisa Keys MD, [facility] CPT-4: 56455 06/17/2016 Plan of Care Planned Activity Notes Codes Status Date Visit Plan: pt is on chronic antihypertensive medication - the medication has been adjusted down to attempt to alleviate the low blood pressures. 01/09/2019 Appointment: Leisa Kirkpatrick WPtel: [address] [place], [place] [id number] (30 min) [facility] 01/09/2019 Patient Education: Patient Medication Summary [...] acute changes. 10/05/2018 Appointment: Lisseth Greene WPtel: [phone] [place] (15 min) Moderate 10/05/2018 Patient Education: Patient Medication Summary Completed 10/05/2018 Visit Plan: Diverticulitis - rx for antibiotic sent to pt's pharmacy - pt advised to avoid seeds, nuts, popcorn, or any other food which has been proven to upset the pt's stomach. 08/20/2018 Appointment: Leisa Kirkpatrick WPtel: [facility] (15 min) Moderate 08/20/2018 Patient Education: Patient [...] Summary Completed 07/24/2018 Appointment: Leisa Kirkpatrick WPtel: [facility] ([facility] [...] considered contagious. 05/07/2018 Appointment: Lisseth Greene WPtel: [phone] [phone] (15 min) Moderate 05/07/2018 Patient Education: Patient [...] or concerns. 04/20/2018 Appointment: Leisa Kirkpatrick WPtel: [phone] [facility] (15 min) Moderate 04/20/2018 Patient Education: Patient [...] Pending 04/09/2018 Care Plan: SCREENINGMAMMOGRAPHYDIGITAL LOINC : 66453-0 Pending 04/09/2018 Visit Plan: Bronchitis - acute [...] acute changes. 12/08/2017 Appointment: [facility] Kirkpatrick [phone] [place] ([place] [...] acute changes. 12/01/2017 Appointment: Leisa Kirkpatrick WPtel: [facility] ([facility] [...] not improving. 10/10/2017 Appointment: Leisa Kirkpatrick WPtel: [facility] (15 min) Moderate 10/10/2017 Patient Education: Patient Medication Summary Completed 10/10/2017 Appointment: Leisa Kirkpatrick WPtel: [phone] [facility] (15 min) Moderate 10/06/2017 Visit Plan: Asthma [...] to medications. 09/20/2017 Appointment: Leisa Kirkpatrick WPtel: [facility] (15 min) Moderate 09/20/2017 Patient Education: Patient [...] allergy spray. 09/12/2017 Appointment: Le[facility] Kirkpatrick [phone] [place] ([facility] [...] spray. 06/12/2017 Appointment: Leisa Kirkpatrick WPtel: [phone] [facility] (10 min) Simple 06/12/2017 Patient Education: Patient Medication Summary Completed 06/12/2017 Visit Plan: Diverticulitis - rx for antibiotic sent to pt's pharmacy - pt advised to avoid seeds, nuts, popcorn, or any other food which has been proven to upset the pt's stomach. 05/04/2017 Appointment: Leisa Kirkpatrick WPtel: [phone] [facility] (30 min) Complex 05/04/2017 Patient Education: [...] spray. 04/21/2017 Appointment: Leisa Kirkpatrick WPtel: [phone] [facility] (15 min) Moderate 04/21/2017 Patient Education: Patient [...] changes. 03/03/2017 Appointment: Le[facility] Kirkpatrick [facility]el: [phone] [place] ([place] [...] times daily. 02/13/2017 Appointment: Le[facility] Kirkpatrick [facility]Ptel: [phone] [place] ([facility] [...] allergy spray. 02/09/2017 Appointment: Leisa Kirkpatrick WPtel: [address] [place] [address] (15 min) Moderate 02/09/2017 Patient Education: Patient [...] allergy spray. 12/14/2016 Appointment: Leisa Kirkpatrick WPtel: [facility] (15 min) Moderate 12/14/2016 Patient Education: [...] not improving. 12/05/2016 Appointment: Le[facility] Kirkpatrick [facility]el: [phone] [...] changes. 09/23/2016 Appointment: Lisseth Greene [facility]Ptel: [phone] [phone] [place] [...] improvement. Allerg ies/asthma - pt sees an ignition specialist who recently started her on Qvar [...] medications. 06/17/2016 Appointment: Lisseth Greene [facility]el: [phone] [place] [...] office if the symptoms are not improving. stop pravastatin x 3 weeks cut losartan [...] pt is to be considered contagious. . Bronchitis - acute case of bronchitis [...] show improvement. Allergies/asthma - pt sees an ignition specialist who recently started her on Qvar [...]
--- OUTSIDE RECORDS SUMMARY | 2019-03-30 10:39 | XMS REPORT | CCD ---
Author Author Leisa Kirkpatrick MD, [facility] Address [address] [place] [address] Phone Care Team Providers Care Behavioral Therapy Coordinator Name Role Phone PP Unavailable CCM Unavailable Summary Purpose Interface Exchange Insurance Providers Payer name Policy type / Coverage type Covered alliance party ID Effective Begin Date Effective End Date [facility] [id number] Unknown Family history Father Diagnosis Age At Onset Heart Attack Unknown genetic disease Unknown Skin cancer Unknown Hypertension Unknown Mother Diagnosis Age At Onset Stroke Unknown Daughter Diagnosis Age At Onset Asthma Unknown Arthritis Unknown Social History Social History Element Codes Description Effective Dates Marital status Unknown Lev 10/10/2017 Number of children Unknown 2 06/17/[address]: 357492055 Never smoker 06/17/2016 Alcohol history Unknown occasionally [...] ICD-9: V76.12 ICD-10: Z12.31 Active 04/09/2018 Unknown Essential (primary) hypertension ICD-9: 401.1 ICD-10: [...] breast ICD-9: V76.12 ICD-10: Z12.31 04/09/2018 Active Essential (primary) hypertension ICD-9: 401.1 ICD-10: I10 04/09/2018 Active Mixed hyperlipidemia ICD- 9: 272.4 [...] Start Date Stop Date Status Fill Instructions Zithromax Z-Maykel 250 mg tablet RxNorm: 461664 1 Tablet(s) PO UD 10/05/2018 10/09/2018 Active prednisone 20 mg tablet RxNorm: 719816 2 Tablet(s) PO daily 10/05/2018 10/09/2018 Active Zantac 150 mg tablet RxNorm: 453936 TAKE 1 TABLET BY MOUTH TWICE DAILY 08/22/2018 08/16/2019 Active Generic For:*ZANTAC 150 MG TABLET 08/22/2018 10:42:54 AM lisinopril 10 mg tablet RxNorm: 257204 TAKE 1 TABLET BY MOUTH DAILY 08/22/2018 02/17/2019 Active Generic For:ZESTRIL 10 MG TABLET 08/22/2018 10:43:05 AM prednisone 10 mg tablet RxNorm: 643579 Tablet(s) PO 07/24/2018 No Stop Date Active 40,40,30,30,20,20,10,10,5mg every other day x 2 doses Zithromax Z-Maykel 250 mg tablet RxNorm: 481599 1 Tablet(s) PO UD 07/24/2018 10/04/2018 Inactive Protonix 20 mg tablet,delayed release RxNorm: 827066 1 Tablet(s) PO BID 05/23/2018 11/18/2018 Active acyclovir 400 mg tablet RxNorm: 227736 2 Tablet(s) PO QID 05/07/2018 05/16/2018 Inactive doxycycline hyclate 100 mg capsule RxNorm: 0020738 1 Capsule(s) PO BID 04/20/2018 04/29/2018 Inactive Bactrim DS 800 mg-160 mg tablet RxNorm: 723435 1 Tablet(s) PO BID 04/16/2018 04/18/2018 Inactive Bactrim DS 800 mg-160 mg tablet RxNorm: 931010 1 Tablet(s) PO BID 04/09/2018 04/15/2018 Inactive lisinopril 10 mg tablet RxNorm: 965440 TAKE 1 TABLET BY MOUTH DAILY 02/21/2018 08/19/2018 Inactive Generic For:ZESTRIL 10 MG TABLET 02/21/2018 11:39:12 AM prednisone 10 mg tablet RxNorm: 401815 Tablet(s) PO 60mg x 2 days, then 40mg x 2 days, then 20mg x 2 days, the 10mg x 2 days, then 5mg every other day x 2 doses 12/08/2017 No Stop Date Active disp qty sufficient doxycycline hyclate 100 mg capsule RxNorm: 6439960 1 Capsule(s) PO BID 12/08/2017 12/17/2017 Inactive albuterol sulfate 2.5 mg/3 mL (0.083 %) solution for nebulization RxNorm: 628122 3 Milliliter(s) INH Q4-6H 12/06/2017 No Stop Date Active prednisone 20 mg tablet RxNorm: 496485 Tablet(s) PO 40mg x 2 days, then 20mg x 2 days, then 10mg x 2 days 12/01/2017 No Stop Date Active Zithromax Z-Maykel 250 mg tablet RxNorm: 660303 1 Tablet(s) PO UD 12/01/2017 04/15/2018 Inactive levocetirizine 5 mg tablet RxNorm: 411164 1 Tablet(s) PO daily 11/13/2017 05/11/2018 Inactive Protonix 20 mg tablet,delayed release RxNorm: 950324 1 Tablet(s) PO BID 11/13/2017 05/11/2018 Inactive Protonix 20 mg tablet,delayed release RxNorm: 090173 1 Tablet(s) PO BID 10/10/2017 11/08/2017 Inactive Tessalon Perles 100 mg capsule RxNorm: 360721 1-2 Capsule(s) PO TID as needed 10/10/2017 10/14/2017 Inactive prednisone 20 mg tablet RxNorm: 354080 Tablet(s) PO 40mg x 2 days, then 20mg x 2 days, then 10mg x 2 days 09/20/2017 11/30/2017 Inactive doxycycline hyclate 100 mg capsule RxNorm: 4071153 1 Capsule(s) PO BID 09/20/2017 09/26/2017 Inactive Zithromax Z-Maykel 250 mg tablet RxNorm: 072332 1 Tablet(s) PO UD 09/12/2017 10/09/2017 Inactive albuterol sulfate 2.5 mg/3 mL (0.083 %) solution for nebulization RxNorm: 872740 3 Milliliter(s) INH Q4-6H 09/12/2017 12/05/2017 Inactive prednisone 20 mg tablet RxNorm: 967785 2 Tablet(s) PO daily 09/12/2017 09/16/2017 Inactive lisinopril 10 mg tablet RxNorm: 609007 1 Tablet(s) PO daily 08/28/2017 02/20/2018 Inactive Zantac 150 mg tablet RxNorm: 659111 1 Tablet(s) PO BID 08/28/2017 08/21/2018 Inactive Cipro 500 mg tablet RxNorm: 391786 1 Tablet(s) PO BID 08/18/2017 08/26/2017 Inactive metronidazole 500 mg tablet RxNorm: 687611 1 Tablet(s) PO TID 08/18/2017 08/26/2017 Inactive prednisone 20 mg tablet RxNorm: 104963 2 Tablet(s) PO BID 06/12/2017 06/16/2017 Inactive Cipro 500 mg tablet RxNorm: 363630 1 Tablet(s) PO BID 05/04/2017 05/13/2017 Inactive metronidazole 500 mg tablet RxNorm: 709756 1 Tablet(s) PO TID 05/04/2017 05/13/2017 Inactive Zantac 150 mg tablet RxNorm: 988539 1 Tablet(s) PO BID 04/27/2017 08/24/2017 Inactive prednisone 20 mg tablet RxNorm: 353899 2 Tablet(s) PO BID start if getting worse 04/21/2017 04/25/2017 Inactive levocetirizine 5 mg tablet RxNorm: 140744 1 Tablet(s) PO daily 04/21/2017 05/20/2017 Inactive prednisone 20 mg tablet RxNorm: 923038 1 Tablet(s) PO BID Start with 1 pill daily and see how effective it is - if still not effective increase to twice a day as discussed 03/03/2017 03/07/2017 Inactive lisinopril 10 mg tablet RxNorm: 748088 1 Tablet(s) PO daily 03/01/2017 08/27/2017 Inactive ciprofloxacin 0.3 % eye drops RxNorm: 090376 2 Drop(s) OPH QID 02/13/2017 02/17/2017 Inactive Zithromax 250 mg tablet RxNorm: 379147 1 Tablet(s) PO daily 02/13/2017 02/15/2017 Inactive Zithromax Z-Maykel 250 mg tablet RxNorm: 225730 1 Tablet(s) PO UD 02/09/2017 02/08/2017 Inactive Zithromax Z-Maykel 250 mg tablet RxNorm: 311592 1 Tablet(s) PO UD 02/09/2017 09/11/2017 Inactive Premarin 0.625 mg/gram vaginal cream RxNorm: 557305 1 Application VAG BIW 12/30/2016 No Stop Date Active Zantac 150 mg tablet RxNorm: 869816 1 Tablet(s) PO BID 12/05/2016 04/03/2017 Inactive prednisone 20 mg tablet RxNorm: 351490 2 Tablet(s) PO daily 12/05/2016 12/09/2016 Inactive Zithromax Z-Maykel 250 mg tablet RxNorm: 877676 Tablet(s) PO UD 12/05/2016 02/08/2017 Inactive lisinopril 10 mg tablet RxNorm: 419278 1 Tablet(s) PO daily 10/31/2016 02/27/2017 Inactive Tessalon Perles 100 mg capsule RxNorm: 917950 2 Capsule(s) PO TID as needed dyspnea 09/23/2016 09/27/2016 Inactive prednisone 20 mg tablet RxNorm: 796148 2 Tablet(s) PO daily 09/23/2016 09/27/2016 Inactive Qvar 80 mcg/actuation Metered Aerosol oral inhaler RxNorm: 048500 1 INH BID started by her client relations specialist 08/02/2016 09/12/2016 Inactive Zithromax Z-Maykel 250 mg tablet RxNorm: 914412 Tablet(s) PO UD 07/08/2016 12/04/2016 Inactive Tessalon Perles 100 mg capsule RxNorm: 827819 2 Capsule(s) PO TID as needed dyspnea 07/08/2016 07/12/2016 Inactive prednisone 20 mg tablet RxNorm: 426224 1 Tablet(s) PO UD 07/08/2016 09/22/2016 Inactive Premarin 0.625 mg/gram vaginal cream RxNorm: 795795 1 Application VAG BIW 06/21/2016 12/29/2016 Inactive Dulera 200 mcg-5 mcg/actuation HFA aerosol inhaler RxNorm: 0502919 2 INH Q2H 06/17/2016 No Stop Date Active lisinopril 10 mg tablet RxNorm: 586052 1 Tablet(s) PO daily 06/17/2016 10/14/2016 Inactive olopatadine 0.1 % eye drops RxNorm: 1305755 Drop(s) OPH PRN No Start Date Active ProAir HFA 90 mcg/actuation aerosol inhaler RxNorm: 448192 2 Puff(s) INH PRN No Start Date Active Zyrtec 10 mg capsule RxNorm: 3856196 1 Capsule(s) PO daily No Start Date Active lutein 20 mg capsule RxNorm: 344900 1 Capsule(s) PO daily No Start Date Active [place] Oil 1,000 mg capsule RxNorm: 1 Capsule(s) PO daily No Start Date Active montelukast 10 mg tablet RxNorm: 639635 1 Tablet(s) PO daily No Start Date Active Vitamin D3 1,000 unit capsule RxNorm: 054481 Capsule(s) PO No Start Date Active B12 sublingual RxNorm: 34490 sublingual No Start Date Active pravastatin 20 mg tablet RxNorm: 078249 1 Tablet(s) PO daily No Start Date Active zinc picolinate 50 mg tablet RxNorm: 1 Tablet(s) PO daily No Start Date Active chromium picolinate 200 mcg capsule RxNorm: 712387 1 Capsule(s) PO daily No Start Date Active magnesium RxNorm: 1 PO BID No Start Date Active premarin 0.5% Vaginal cream RxNorm: 1 VAG daily No Start Date Active Xolair 150 mg subcutaneous solution RxNorm: 2724701 1 SQ monthly No Start Date Active folate #7-pc dha-pe [id number]-multivitamin #46 oral RxNorm: oral No Start Date Active prednisone RxNorm: 8640 miscellaneous No Start Date Active Dulera 200 mcg-5 mcg/actuation HFA aerosol inhaler RxNorm: 3090815 2 INH Q4H No Start Date 06/16/2016 Inactive lisinopril 10 mg tablet RxNorm: 260329 1 Tablet(s) PO daily No Start Date 06/16/2016 Inactive Medication Administered No Medication Administered data Immunizations Vaccine Codes Date Status Influenza CVX: 141 08/20/2018 completed Assessments Condition Codes Effective Dates Moderate persistent [...] deficiency, unspecified ICD-10: E55.9 ICD-9: 268.9 04/09/2018 Essential (primary) hypertension ICD-10: I10 ICD-9: 401.1 04/09/2018 Paresthesia of skin ICD-10: R20.2 ICD-9: [...] Reason For Visit Effective Dates Notes cough 10/05/2018 abdominal pain 08/20/2018 sinus congestion [...] Item Code Result Date C A/B FLU [id number] Influenza A Scr TNP:Duplicate Order 07/25/2018 C A/B FLU [id number] Influenza B Scr TNP:Duplicate Order 07/25/2018 C A/B FLU [id number] IC OK? TNP:Duplicate Order 07/25/2018 C A/B FLU [id number] Influenza Intrp B AG:PRID:PT:NOSE:NOM:IF TNP:Duplicate Order 07/25/2018 C RAP A SC [id number] Strep A TNP:Lab Request 02/09/2017 C RAP A SC [id number] IC OK? TNP:Lab Request 02/09/2017 Review of Systems System Result Effective Dates Constitutional recent illness 10/05/2018 Constitutional No chills [...] affect 04/20/2018 None Full Exam - General [facility] Psychiatric appearance Overall: well-groomed, good eye contact [...] No Procedures data Vital Signs Date Vital 10/05/2018 Blood Pressure 1: 150/84 Code: 8480-6 BMI: 29.9 Code: 07881-9 Heart Rate 1: 78 bpm Height: 5'4" SpO2: 91% Weight: 174 lbs 08/20/2018 Blood Pressure 1: 142/86 Code: 8480-6 BMI: 29.9 Code: 57424-9 Heart Rate 1: 79 bpm Height: 5'4" SpO2: 98% Weight: 174 lbs 07/24/2018 Blood Pressure 1: 150/84 Code: 8480-6 BMI: 29.9 Code: 07201-4 Heart Rate 1: 116 bpm Height: 5'4" SpO2: 96% Temperature: 37.0 (C) / 98.6 (F) Weight: 174 lbs 05/07/2018 Blood Pressure 1: 130/80 Code: 8480-6 BMI: 29.9 Code: 60199-7 Heart Rate 1: 93 bpm Height: 5'4" SpO2: 95% Weight: 174 lbs 04/20/2018 Blood Pressure 1: 134/70 Code: 8480-6 Heart Rate 1: 86 bpm Height: SpO2: 98% Weight: 04/09/2018 Blood Pressure 1: 132/76 Code: 8480-6 BMI: 29.5 Code: 51176-3 Heart Rate 1: 80 bpm Height: 5'4" SpO2: 98% Weight: 172 lbs 12/08/2017 Blood Pressure 1: 148/76 Code: 8480-6 BMI: 29.9 Code: 90498-7 Heart Rate 1: 97 bpm Height: 5'4" SpO2: 97% Weight: 174 lbs 12/01/2017 Blood Pressure 1: 124/74 Code: 8480-6 BMI: 29.9 Code: 06157-1 Heart Rate 1: 110 bpm Height: 5'4" SpO2: 97% Temperature: 37.4 (C) / 99.4 (F) Weight: 174 lbs 10/10/2017 Blood Pressure 1: 128/80 Code: 8480-6 BMI: 29.8 Code: 16046-7 Heart Rate 1: 91 bpm Height: 5'4" SpO2: 98% Temperature: 36.5 (C) / 97.7 (F) Weight: 173 lbs 8 oz 09/20/2017 Blood Pressure 1: 152/88 Code: 8480-6 BMI: 29.9 Code: 08858-1 Heart Rate 1: 87 bpm Height: 5'4" SpO2: 96% Weight: 174 lbs 09/12/2017 Blood Pressure 1: 134/74 Code: 8480-6 BMI: 29.9 Code: 38856-8 Heart Rate 1: 90 bpm Height: 5'4" SpO2: 96% Weight: 174 lbs 08/18/2017 Blood Pressure 1: 128/68 Code: 8480-6 Heart Rate 1: 88 bpm Height: SpO2: 97% Weight: 06/12/2017 Blood Pressure 1: 130/70 Code: 8480-6 BMI: 29.2 Code: 41200-6 Heart Rate 1: 94 bpm Height: 5'4" SpO2: 95% Weight: 170 lbs 05/04/2017 Blood Pressure 1: 138/80 Code: 8480-6 BMI: 29.9 Code: 02255-3 Heart Rate 1: 84 bpm Height: 5'4" SpO2: 97% Weight: 174 lbs 04/21/2017 Blood Pressure 1: 130/72 Code: 8480-6 BMI: 29.9 Code: 44359-7 Heart Rate 1: 90 bpm Height: 5'4" SpO2: 96% Weight: 174 lbs 03/03/2017 Blood Pressure 1: 136/78 Code: 8480-6 BMI: 29.9 Code: 22152-1 Heart Rate 1: 91 bpm Height: 5'4" SpO2: 96% Weight: 174 lbs 02/13/2017 Blood Pressure 1: 116/74 Code: 8480-6 BMI: 29.2 Code: 53241-5 Heart Rate 1: 91 bpm Height: 5'4" SpO2: 94% Weight: 170 lbs 02/09/2017 Blood Pressure 1: 120/72 Code: 8480-6 BMI: 29.0 Code: 67529-9 Heart Rate 1: 100 bpm Height: 5'4" SpO2: 97% Temperature: 37.4 (C) / 99.3 (F) Weight: 169 lbs 12/14/2016 Blood Pressure 1: 130/72 Code: 8480-6 BMI: 29.5 Code: 91895-7 Heart Rate 1: 100 bpm Height: 5'4" SpO2: 95% Weight: 172 lbs 12/05/2016 Blood Pressure 1: 136/78 Code: 8480-6 BMI: 29.2 Code: 22213-4 Heart Rate 1: 117 bpm Height: 5'4" SpO2: 97% Weight: 170 lbs 09/23/2016 Blood Pressure 1: 130/74 Code: 8480-6 BMI: 30.2 Code: 34622-4 Heart Rate 1: 102 bpm Height: 5'4" SpO2: 94% Weight: 176 lbs 09/14/2016 Blood Pressure 1: 128/74 Code: 8480-6 BMI: 29.4 Code: 24984-6 Heart Rate 1: 90 bpm Height: 5'4" SpO2: 97% Weight: 171 lbs 07/08/2016 Blood Pressure 1: 118/64 Code: 8480-6 BMI: 28.8 Code: 96596-3 Heart Rate 1: 115 bpm Height: 5'4" SpO2: 97% Weight: 168 lbs 06/17/2016 Blood Pressure 1: 144/86 Code: 8480-6 BMI: 29.5 Code: 59235-2 Heart Rate 1: 94 bpm Height: 5'4" SpO2: 96% Weight: 172 lbs Functional Status No Functional Status data History of Present Illness Symptom Name Status Result Effective Date Notes Location in the throat 10/05/2018 None Quality [...] data Encounters Encounter Performer Location Codes Date ( 38524 EST. PATIENT, LEVEL III Diagnosis: Cough[ICD10: R05] Diagnosis: Moderate persistent asthma with (acute) exacerbation[ICD10: J45.41] Lisseth Keys MD, [facility] CPT-4: 95542 10/05/2018 08071 EST. PATIENT, LEVEL III Diagnosis: Diverticulitis of large intestine without perforation or abscess with bleeding[ICD10: K57.33] [facility] CPT-4: 49913 08/20/2018 70571 EST. PATIENT, LEVEL IV Diagnosis: Other acute sinusitis[ICD10: J01.80] Diagnosis: Other allergic rhinitis[ICD10: J30.89] Leisa Keys MD, [facility] CPT- 4: 34135 07/24/2018 88289 EST. PATIENT, LEVEL III Diagnosis: Zoster without complications[ICD10: B02.9] Lisseth Keys MD, [facility] CPT-4: 97199 05/07/2018 80165 EST. PATIENT, LEVEL IV Diagnosis: Cough[ICD10: R05] Diagnosis: Fever presenting with conditions classified elsewhere[ICD10: R50.81] Leisa Keys MD, [facility] CPT-4: 02027 04/20/2018 27418 EST. PATIENT, LEVEL III Diagnosis: Other fatigue[ICD10: R53.83] Diagnosis: Vitamin D deficiency, unspecified[ICD10: E55.9] Diagnosis: Paresthesia of skin[ICD10: R20.2] Diagnosis: Mixed hyperlipidemia[ICD10: E78.2] Diagnosis: Cellulitis of left toe[ICD10: L03.032] Diagnosis: Essential (primary) hypertension[ICD10: I10] Leisa Keys MD, [facility] CPT-4: 98606 04/09/2018 60167 EST. PATIENT, LEVEL IV Diagnosis: Acute bronchitis due to other specified organisms[ICD10: J20.8] Diagnosis: Moderate persistent asthma with (acute) exacerbation[ICD10: J45.41] Leisa Keys MD, [facility] CPT-4: 50000 12/08/2017 78447 EST. PATIENT, LEVEL IV Diagnosis: Other acute sinusitis[ICD10: J01.80] Diagnosis: Other allergic rhinitis[ICD10: J30.89] Diagnosis: Moderate persistent asthma with (acute) exacerbation[ICD10: J45.41] Leisa Keys MD, [facility] CPT-4: 75173 12/01/2017 14537 EST. PATIENT, LEVEL IV Diagnosis: Moderate persistent asthma with (acute) exacerbation[ICD10: J45.41] Diagnosis: Other allergic rhinitis[ICD10: J30.89] Diagnosis: Gastro-esophageal reflux disease without esophagitis[ICD10: K21.9] Leisa Keys MD, [facility] CPT-4: 72117 10/10/2017 32566 EST. PATIENT, LEVEL III Diagnosis: Moderate persistent asthma with (acute) exacerbation[ICD10: J45.41] Diagnosis: Other allergic rhinitis[ICD10: J30.89] Diagnosis: Mixed hyperlipidemia[ICD10: E78.2] Leisa Keys MD, [facility] CPT-4: 25630 09/20/2017 35423 EST. PATIENT, LEVEL IV Diagnosis: Acute laryngopharyngitis[ICD10: J06.0] Diagnosis: Other acute sinusitis[ICD10: J01.80] Diagnosis: Other allergic rhinitis[ICD10: J30.89] Leisa Keys MD, [facility] CPT- 4: 86486 09/12/2017 75637 EST. PATIENT, LEVEL IV Diagnosis: Diverticulitis of large intestine without perforation or abscess with bleeding[ICD10: K57.33] Leisa Keys MD, [facility] CPT-4: 50917 08/18/2017 90212 EST. PATIENT, LEVEL IV Diagnosis: Other allergic rhinitis[ICD10: J30.89] Diagnosis: Moderate persistent asthma with (acute) exacerbation[ICD10: J45.41] Leisa Keys MD, [facility] CPT-4: 14283 06/12/2017 80268 EST. PATIENT, LEVEL IV Diagnosis: Diverticulitis of large intestine without perforation or abscess with bleeding[ICD10: K57.33] Leisa Keys MD, [facility] CPT-4: 44915 05/04/2017 38683 EST. PATIENT, LEVEL IV Diagnosis: Other allergic rhinitis[ICD10: J30.89] Diagnosis: Moderate persistent asthma with (acute) exacerbation[ICD10: J45.41] Leisa Keys MD, [facility] CPT-4: 28574 04/21/2017 89715 EST. PATIENT, LEVEL III Diagnosis: Moderate persistent asthma with (acute) exacerbation[ICD10: J45.41] Leisa Keys MD, [facility] CPT-4: 67678 03/03/2017 29752 EST. PATIENT, LEVEL IV Diagnosis: Moderate persistent asthma, uncomplicated[ICD10: J45.40] Diagnosis: Other mucopurulent conjunctivitis, left eye[ICD10: H10.022] Diagnosis: Acute laryngopharyngitis[ICD10: J06.0] Leisa Keys MD, [facility] CPT- 4: 57305 02/13/2017 26803 EST. PATIENT, LEVEL IV Diagnosis: Acute laryngopharyngitis[ICD10: J06.0] Diagnosis: Other acute sinusitis[ICD10: J01.80] Diagnosis: Other allergic rhinitis[ICD10: J30.89] Leisa Keys MD, [facility] CPT- 4: 35541 02/09/2017 45484 EST. PATIENT, LEVEL III Diagnosis: Other allergic rhinitis[ICD10: J30.89] Diagnosis: Moderate persistent asthma, uncomplicated[ICD10: J45.40] Leisa Keys MD, [facility] CPT-4: 22932 12/14/2016 33881 EST. PATIENT, LEVEL III Diagnosis: Other acute sinusitis[ICD10: J01.80] Diagnosis: Other allergic rhinitis[ICD10: J30.89] Diagnosis: Moderate persistent asthma, uncomplicated[ICD10: J45.40] Diagnosis: Gastro-esophageal reflux disease without esophagitis[ICD10: K21.9] Leisa Keys MD, [facility] CPT-4: 69705 12/05/2016 04009 EST. PATIENT, LEVEL IV Diagnosis: Other allergic rhinitis[ICD10: J30.89] Diagnosis: Moderate persistent asthma, uncomplicated[ICD10: J45.40] Diagnosis: Cough[ICD10: R05] Leisa Keys MD, [facility] CPT-4: 69701 09/23/2016 82886 EST. PATIENT, LEVEL IV Diagnosis: Moderate persistent asthma, uncomplicated[ICD10: J45.40] Diagnosis: Other allergic rhinitis[ICD10: J30.89] Leisa Keys MD, [facility] CPT- 4: 20153 09/14/2016 15631 EST. PATIENT, LEVEL IV Diagnosis: Other acute sinusitis[ICD10: J01.80] Leisa Keys MD, [facility] CPT- 4: 19343 07/08/2016 (99775) PREV VISIT NEW AGE 40-64 Diagnosis: Encounter for gynecological examination (general) (routine) without abnormal findings[ICD10: Z01.419] Diagnosis: Moderate persistent asthma, uncomplicated[ICD10: J45.40] Diagnosis: Essential (primary) hypertension[ICD10: I10] Diagnosis: Mixed hyperlipidemia[ICD10: E78.2] Leisa Keys MD, [facility] CPT-4: 99951 06/17/2016 Plan of Care Planned Activity Notes [...] stomach. 08/20/2018 Appointment: Leisa Kirkpatrick WPtel: [phone] [facility] (15 min) Moderate 08/20/2018 [...] spray. 07/24/2018 Appointment: Leisa Kirkpatrick WPtel: [phone] [facility] (15 min) Moderate 07/24/2018 Patient Education: Patient Medication Summary Completed 07/24/2018 Appointment: Leisa Kirkpatrick WPtel: [phone] [facility] (30 min) Complex 05/14/2018 Visit Plan: [...] contagious. 05/07/2018 Appointment: Lisseth Greene WPtel: [phone] [facility] [place] [address] (15 min) Moderate 05/07/2018 Patient Education: Patient [...] concerns. 04/20/2018 Appointment: Leisa Kirkpatrick WPtel: [phone] [facility] (15 min) Moderate 04/20/2018 Patient [...] indicated. 04/09/2018 [phone] ([facility] min) Moderate 04/09/2018 Patient Education: Patient Medication Summary Completed 04/09/2018 Patient Education: Patient Medication Summary Completed 04/09/2018 Care Plan: B12 Pending 04/09/2018 Care Plan: Folate Pending 04/09/2018 Care Plan: Vitamin D 25 Oh Pending 04/09/2018 Care Plan: Lipid Pending 04/09/2018 Care Plan: [facility] Pending 04/09/2018 Visit Plan: Bronchitis - acute [...] changes. 12/08/2017 App[facility]ment: [phone] (30 min) Complex 12/08/2017 Patient Education: [...] acute changes. 12/01/2017 Appointment: Leisa Kirkpatrick WPtel: [address] [place], [place] [address] (15 min) Moderate 12/01/2017 Patient Education: Patient [...] not improving. 10/10/2017 Appointment: Leisa Kirkpatrick WPtel: [phone] [facility] (15 min) Moderate 10/10/2017 Patient Education: Patient Medication Summary Completed 10/10/2017 Appointment: Leisa Kirkpatrick WPtel: [address] [place], [place] [phone] (15 min) Moderate 10/06/2017 Visit Plan: Asthma [...] medications. 09/20/2017 Appointment: Leisa Kirkpatrick WPtel: [phone] [facility] (15 min) Moderate 09/20/2017 [...] allergy spray. 09/12/2017 App[facility]ment: [phone] [facility] (15 min) Moderate 09/12/2017 Patient Education: Patient Medication Summary Completed 09/12/2017 Patient Education: Obesity Completed 09/12/2017 Visit Plan: Diverticulitis - rx for antibiotic sent to pt's pharmacy - pt advised to avoid seeds, nuts, popcorn, or any other food which has been proven to upset the pt's stomach. 08/18/2017 Appointment: [phone] (30 min) Complex 08/18/2017 Patient Education: [...] spray. 06/12/2017 Appointment: Leisa Kirkpatrick WPtel: [phone] [facility] (10 min) Simple 06/12/2017 Patient Education: Patient Medication Summary Completed 06/12/2017 Visit Plan: Diverticulitis - rx for antibiotic sent to pt's pharmacy - pt advised to avoid seeds, nuts, popcorn, or any other food which has been proven to upset the pt's stomach. 05/04/2017 Appointment: Leisa Kirkpatrick WPtel: [phone] [facility] (30 min) Complex 05/04/2017 Patient Education: [...] spray. 04/21/2017 App[facility]ment: [phone] [facility] (15 min) [...] [phone] [facility] [place] (10 min) Simple 02/13/2017 Patient Education: [...] allergy spray. 02/09/2017 Appointment: Leisa Kirkpatrick WPtel: [facility] (15 min) Moderate 02/09/2017 Patient Education: Patient [...] allergy spray. 12/14/2016 Appointment: Leisa Kirkpatrick WPtel: [facility] (15 min) Moderate 12/14/2016 Patient Education: [...] improving. 12/05/2016 Appointment: [phone] [facility] (30 min) Complex 12/05/2016 Patient Education: [...] acute changes. 09/23/2016 Appointment: [facility] Greene [facility]el[phone] [phone] (30 min) Complex 09/23/2016 Patient [...] improvement. Allerg ies/asthma - pt sees an client relations specialist who recently started her on Qvar and dexilant. They are referring her to pulmonology (Dr. Mcconnell) - pt is to notify clinic with any questions or concerns. 07/08/2016 Appointment: Lisseth Greene WPtel: [address] [place], [place] [phone] (15 min) Moderate 07/08/2016 Patient Education: Patient [...] normal liver response to medications. 06/17/2016 Appointment: c[facility]el[facility] [phone] [id number] [facility] Patient 06/17/2016 Patient Education: Patient Medication Summary Completed 06/17/2016 Care Plan: PAP Pending 06/17/2016 Instructions Comment . Asthma Exacerbation - Asthma is a [...] stable, monitor for acute changes. . Asthma - chronic problem for this [...] in the nasal steroid allergy spray. . Shingles - Herpes Zoster - acute [...] show improvement. Allergies/asthma - pt sees an client relations specialist who recently started her on Qvar [...]
--- OUTSIDE RECORDS SUMMARY | 2019-03-30 10:41 | XMS REPORT | CCD ---
Author Author Leisa Kirkpatrick MD, [facility] Address [address] [place] [address] Phone Care Team Providers Care Core Analyst Name Role Phone PP Unavailable CCM Unavailable Summary Purpose Interface Exchange Insurance Providers Payer name Policy type / Coverage type Covered libertarian ID Effective Begin Date Effective End Date [facility] [id number] Unknown Family history Father Diagnosis Age At Onset Heart Attack Unknown genetic disease Unknown Skin cancer Unknown Hypertension Unknown Mother Diagnosis Age At Onset Stroke Unknown Daughter Diagnosis Age At Onset Asthma Unknown Arthritis Unknown Social History Social History Element Codes Description Effective Dates Marital status Unknown Lev 10/10/2017 Number of children Unknown 2 06/17/[address]: 156035667 Never smoker 06/17/2016 Alcohol history Unknown occasionally [...] Instructions Zithromax Z-Maykel 250 mg tablet RxNorm: 179838 1 Tablet(s) PO UD 10/05/2018 10/09/2018 Active prednisone 20 mg tablet RxNorm: 334137 2 Tablet(s) PO daily 10/05/2018 10/09/2018 Active Zantac 150 mg tablet RxNorm: 642972 TAKE 1 TABLET BY MOUTH TWICE DAILY 08/22/2018 08/16/2019 Active Generic For:*ZANTAC 150 MG TABLET 08/22/2018 10:42:54 AM lisinopril 10 mg tablet RxNorm: 613035 TAKE 1 TABLET BY MOUTH DAILY 08/22/2018 02/17/2019 Active Generic For:ZESTRIL 10 MG TABLET 08/22/2018 10:43:05 AM prednisone 10 mg tablet RxNorm: 952758 Tablet(s) PO 07/24/2018 No Stop Date Active 40,40,30,30,20,20,10,10,5mg every other day x 2 doses Zithromax Z-Maykel 250 mg tablet RxNorm: 552083 1 Tablet(s) PO UD 07/24/2018 10/04/2018 Inactive Protonix 20 mg tablet,delayed release RxNorm: 387482 1 Tablet(s) PO BID 05/23/2018 11/18/2018 Active acyclovir 400 mg tablet RxNorm: 119774 2 Tablet(s) PO QID 05/07/2018 05/16/2018 Inactive doxycycline hyclate 100 mg capsule RxNorm: 6436883 1 Capsule(s) PO BID 04/20/2018 04/29/2018 Inactive Bactrim DS 800 mg-160 mg tablet RxNorm: 870482 1 Tablet(s) PO BID 04/16/2018 04/18/2018 Inactive Bactrim DS 800 mg-160 mg tablet RxNorm: 086406 1 Tablet(s) PO BID 04/09/2018 04/15/2018 Inactive lisinopril 10 mg tablet RxNorm: 783201 TAKE 1 TABLET BY MOUTH DAILY 02/21/2018 08/19/2018 Inactive Generic For:ZESTRIL 10 MG TABLET 02/21/2018 11:39:12 AM prednisone 10 mg tablet RxNorm: 949318 Tablet(s) PO 60mg x 2 days, then 40mg x 2 days, then 20mg x 2 days, the 10mg x 2 days, then 5mg every other day x 2 doses 12/08/2017 No Stop Date Active disp qty sufficient doxycycline hyclate 100 mg capsule RxNorm: 8118791 1 Capsule(s) PO BID 12/08/2017 12/17/2017 Inactive albuterol sulfate 2.5 mg/3 mL (0.083 %) solution for nebulization RxNorm: 450265 3 Milliliter(s) INH Q4-6H 12/06/2017 No Stop Date Active prednisone 20 mg tablet RxNorm: 334558 Tablet(s) PO 40mg x 2 days, then 20mg x 2 days, then 10mg x 2 days 12/01/2017 No Stop Date Active Zithromax Z-Maykel 250 mg tablet RxNorm: 160043 1 Tablet(s) PO UD 12/01/2017 04/15/2018 Inactive levocetirizine 5 mg tablet RxNorm: 046885 1 Tablet(s) PO daily 11/13/2017 05/11/2018 Inactive Protonix 20 mg tablet,delayed release RxNorm: 118368 1 Tablet(s) PO BID 11/13/2017 05/11/2018 Inactive Protonix 20 mg tablet,delayed release RxNorm: 187576 1 Tablet(s) PO BID 10/10/2017 11/08/2017 Inactive Tessalon Perles 100 mg capsule RxNorm: 864921 1-2 Capsule(s) PO TID as needed 10/10/2017 10/14/2017 Inactive prednisone 20 mg tablet RxNorm: 514634 Tablet(s) PO 40mg x 2 days, then 20mg x 2 days, then 10mg x 2 days 09/20/2017 11/30/2017 Inactive doxycycline hyclate 100 mg capsule RxNorm: 7008757 1 Capsule(s) PO BID 09/20/2017 09/26/2017 Inactive Zithromax Z-Maykel 250 mg tablet RxNorm: 314335 1 Tablet(s) PO UD 09/12/2017 10/09/2017 Inactive albuterol sulfate 2.5 mg/3 mL (0.083 %) solution for nebulization RxNorm: 393063 3 Milliliter(s) INH Q4-6H 09/12/2017 12/05/2017 Inactive prednisone 20 mg tablet RxNorm: 890377 2 Tablet(s) PO daily 09/12/2017 09/16/2017 Inactive lisinopril 10 mg tablet RxNorm: 952271 1 Tablet(s) PO daily 08/28/2017 02/20/2018 Inactive Zantac 150 mg tablet RxNorm: 142614 1 Tablet(s) PO BID 08/28/2017 08/21/2018 Inactive Cipro 500 mg tablet RxNorm: 699850 1 Tablet(s) PO BID 08/18/2017 08/26/2017 Inactive metronidazole 500 mg tablet RxNorm: 586358 1 Tablet(s) PO TID 08/18/2017 08/26/2017 Inactive prednisone 20 mg tablet RxNorm: 761622 2 Tablet(s) PO BID 06/12/2017 06/16/2017 Inactive Cipro 500 mg tablet RxNorm: 377929 1 Tablet(s) PO BID 05/04/2017 05/13/2017 Inactive metronidazole 500 mg tablet RxNorm: 647549 1 Tablet(s) PO TID 05/04/2017 05/13/2017 Inactive Zantac 150 mg tablet RxNorm: 308740 1 Tablet(s) PO BID 04/27/2017 08/24/2017 Inactive prednisone 20 mg tablet RxNorm: 932796 2 Tablet(s) PO BID start if getting worse 04/21/2017 04/25/2017 Inactive levocetirizine 5 mg tablet RxNorm: 585666 1 Tablet(s) PO daily 04/21/2017 05/20/2017 Inactive prednisone 20 mg tablet RxNorm: 894674 1 Tablet(s) PO BID Start with 1 pill daily and see how effective it is - if still not effective increase to twice a day as discussed 03/03/2017 03/07/2017 Inactive lisinopril 10 mg tablet RxNorm: 966743 1 Tablet(s) PO daily 03/01/2017 08/27/2017 Inactive ciprofloxacin 0.3 % eye drops RxNorm: 208364 2 Drop(s) OPH QID 02/13/2017 02/17/2017 Inactive Zithromax 250 mg tablet RxNorm: 237876 1 Tablet(s) PO daily 02/13/2017 02/15/2017 Inactive Zithromax Z-Maykel 250 mg tablet RxNorm: 151081 1 Tablet(s) PO UD 02/09/2017 02/08/2017 Inactive Zithromax Z-Maykel 250 mg tablet RxNorm: 421720 1 Tablet(s) PO UD 02/09/2017 09/11/2017 Inactive Premarin 0.625 mg/gram vaginal cream RxNorm: 695293 1 Application VAG BIW 12/30/2016 No Stop Date Active Zantac 150 mg tablet RxNorm: 558384 1 Tablet(s) PO BID 12/05/2016 04/03/2017 Inactive prednisone 20 mg tablet RxNorm: 802931 2 Tablet(s) PO daily 12/05/2016 12/09/2016 Inactive Zithromax Z-Maykel 250 mg tablet RxNorm: 400154 Tablet(s) PO UD 12/05/2016 02/08/2017 Inactive lisinopril 10 mg tablet RxNorm: 525066 1 Tablet(s) PO daily 10/31/2016 02/27/2017 Inactive Tessalon Perles 100 mg capsule RxNorm: 022755 2 Capsule(s) PO TID as needed dyspnea 09/23/2016 09/27/2016 Inactive prednisone 20 mg tablet RxNorm: 940270 2 Tablet(s) PO daily 09/23/2016 09/27/2016 Inactive Qvar 80 mcg/actuation Metered Aerosol oral inhaler RxNorm: 794165 1 INH BID started by her family program specialist 08/02/2016 09/12/2016 Inactive Zithromax Z-Maykel 250 mg tablet RxNorm: 831292 Tablet(s) PO UD 07/08/2016 12/04/2016 Inactive Tessalon Perles 100 mg capsule RxNorm: 385946 2 Capsule(s) PO TID as needed dyspnea 07/08/2016 07/12/2016 Inactive prednisone 20 mg tablet RxNorm: 162447 1 Tablet(s) PO UD 07/08/2016 09/22/2016 Inactive Premarin 0.625 mg/gram vaginal cream RxNorm: 744865 1 Application VAG BIW 06/21/2016 12/29/2016 Inactive Dulera 200 mcg-5 mcg/actuation HFA aerosol inhaler RxNorm: 7068578 2 INH Q2H 06/17/2016 No Stop Date Active lisinopril 10 mg tablet RxNorm: 644227 1 Tablet(s) PO daily 06/17/2016 10/14/2016 Inactive olopatadine 0.1 % eye drops RxNorm: 6200711 Drop(s) OPH PRN No Start Date Active ProAir HFA 90 mcg/actuation aerosol inhaler RxNorm: 025535 2 Puff(s) INH PRN No Start Date Active Zyrtec 10 mg capsule RxNorm: 8794448 1 Capsule(s) PO daily No Start Date Active lutein 20 mg capsule RxNorm: 600493 1 Capsule(s) PO daily No Start Date Active [place] Oil 1,000 mg capsule RxNorm: 1 Capsule(s) PO daily No Start Date Active montelukast 10 mg tablet RxNorm: 281612 1 Tablet(s) PO daily No Start Date Active Vitamin D3 1,000 unit capsule RxNorm: 704899 Capsule(s) PO No Start Date Active B12 sublingual RxNorm: 71927 sublingual No Start Date Active pravastatin 20 mg tablet RxNorm: 731572 1 Tablet(s) PO daily No Start Date Active zinc picolinate 50 mg tablet RxNorm: 1 Tablet(s) PO daily No Start Date Active chromium picolinate 200 mcg capsule RxNorm: 971050 1 Capsule(s) PO daily No Start Date Active magnesium RxNorm: 1 PO BID No Start Date Active premarin 0.5% Vaginal cream RxNorm: 1 VAG daily No Start Date Active Xolair 150 mg subcutaneous solution RxNorm: 1595276 1 SQ monthly No Start Date Active folate #7-pc dha-pe mtu-TWPN-ohklwa-IF-multivitamin #46 oral RxNorm: oral No Start Date Active prednisone RxNorm: 8640 miscellaneous No Start Date Active Dulera 200 mcg-5 mcg/actuation HFA aerosol inhaler RxNorm: 5601869 2 INH Q4H No Start Date 06/16/2016 Inactive lisinopril 10 mg tablet RxNorm: 177052 1 Tablet(s) PO daily No Start Date [...] Item Code Result Date C A/B FLU [id number] Influenza A Scr TNP:Duplicate Order 07/25/2018 C A/B FLU [id number] Influenza B Scr TNP:Duplicate Order 07/25/2018 C A/B FLU [id number] IC OK? TNP:Duplicate Order 07/25/2018 C A/B FLU [id number] Influenza Intrp B AG:PRID:PT:NOSE:NOM:IF TNP:Duplicate Order 07/25/2018 C RAP A SC [id number] Strep A TNP:Lab Request 02/09/2017 C RAP A SC [id number] IC OK? TNP:Lab Request 02/09/2017 Review of [...] affect 04/20/2018 None Full Exam - General formerly [facility] Psychiatric appearance Overall: well-groomed, good [...] 1: 150/84 Code: 8480-6 BMI: 29.9 Code: 64225-0 Heart Rate 1: 78 bpm Height: 5'4" SpO2: 91% Weight: 174 lbs 08/20/2018 Blood Pressure 1: 142/86 Code: 8480-6 BMI: 29.9 Code: 52257-5 Heart Rate 1: 79 bpm Height: 5'4" SpO2: 98% Weight: 174 lbs 07/24/2018 Blood Pressure 1: 150/84 Code: 8480-6 BMI: 29.9 Code: 15980-1 Heart Rate 1: 116 bpm Height: 5'4" SpO2: 96% Temperature: 37.0 (C) / 98.6 (F) Weight: 174 lbs 05/07/2018 Blood Pressure 1: 130/80 Code: 8480-6 BMI: 29.9 Code: 69777-1 Heart Rate 1: 93 bpm Height: 5'4" SpO2: 95% Weight: 174 lbs 04/20/2018 Blood Pressure 1: 134/70 Code: 8480-6 Heart Rate 1: 86 bpm Height: SpO2: 98% Weight: 04/09/2018 Blood Pressure 1: 132/76 Code: 8480-6 BMI: 29.5 Code: 44753-7 Heart Rate 1: 80 bpm Height: 5'4" SpO2: 98% Weight: 172 lbs 12/08/2017 Blood Pressure 1: 148/76 Code: 8480-6 BMI: 29.9 Code: 36007-2 Heart Rate 1: 97 bpm Height: 5'4" SpO2: 97% Weight: 174 lbs 12/01/2017 Blood Pressure 1: 124/74 Code: 8480-6 BMI: 29.9 Code: 63816-0 Heart Rate 1: 110 bpm Height: 5'4" SpO2: 97% Temperature: 37.4 (C) / 99.4 (F) Weight: 174 lbs 10/10/2017 Blood Pressure 1: 128/80 Code: 8480-6 BMI: 29.8 Code: 50841-4 Heart Rate 1: 91 bpm Height: 5'4" SpO2: 98% Temperature: 36.5 (C) / 97.7 (F) Weight: 173 lbs 8 oz 09/20/2017 Blood Pressure 1: 152/88 Code: 8480-6 BMI: 29.9 Code: 64463-9 Heart Rate 1: 87 bpm Height: 5'4" SpO2: 96% Weight: 174 lbs 09/12/2017 Blood Pressure 1: 134/74 Code: 8480-6 BMI: 29.9 Code: 27618-6 Heart Rate 1: 90 bpm Height: 5'4" SpO2: 96% Weight: 174 lbs 08/18/2017 Blood Pressure 1: 128/68 Code: 8480-6 Heart Rate 1: 88 bpm Height: SpO2: 97% Weight: 06/12/2017 Blood Pressure 1: 130/70 Code: 8480-6 BMI: 29.2 Code: 26835-0 Heart Rate 1: 94 bpm Height: 5'4" SpO2: 95% Weight: 170 lbs 05/04/2017 Blood Pressure 1: 138/80 Code: 8480-6 BMI: 29.9 Code: 66271-6 Heart Rate 1: 84 bpm Height: 5'4" SpO2: 97% Weight: 174 lbs 04/21/2017 Blood Pressure 1: 130/72 Code: 8480-6 BMI: 29.9 Code: 73044-2 Heart Rate 1: 90 bpm Height: 5'4" SpO2: 96% Weight: 174 lbs 03/03/2017 Blood Pressure 1: 136/78 Code: 8480-6 BMI: 29.9 Code: 49794-6 Heart Rate 1: 91 bpm Height: 5'4" SpO2: 96% Weight: 174 lbs 02/13/2017 Blood Pressure 1: 116/74 Code: 8480-6 BMI: 29.2 Code: 74001-7 Heart Rate 1: 91 bpm Height: 5'4" SpO2: 94% Weight: 170 lbs 02/09/2017 Blood Pressure 1: 120/72 Code: 8480-6 BMI: 29.0 Code: 60800-0 Heart Rate 1: 100 bpm Height: 5'4" SpO2: 97% Temperature: 37.4 (C) / 99.3 (F) Weight: 169 lbs 12/14/2016 Blood Pressure 1: 130/72 Code: 8480-6 BMI: 29.5 Code: 36870-2 Heart Rate 1: 100 bpm Height: 5'4" SpO2: 95% Weight: 172 lbs 12/05/2016 Blood Pressure 1: 136/78 Code: 8480-6 BMI: 29.2 Code: 94000-3 Heart Rate 1: 117 bpm Height: 5'4" SpO2: 97% Weight: 170 lbs 09/23/2016 Blood Pressure 1: 130/74 Code: 8480-6 BMI: 30.2 Code: 86478-1 Heart Rate 1: 102 bpm Height: 5'4" SpO2: 94% Weight: 176 lbs 09/14/2016 Blood Pressure 1: 128/74 Code: 8480-6 BMI: 29.4 Code: 29737-8 Heart Rate 1: 90 bpm Height: 5'4" SpO2: 97% Weight: 171 lbs 07/08/2016 Blood Pressure 1: 118/64 Code: 8480-6 BMI: 28.8 Code: 41568-5 Heart Rate 1: 115 bpm Height: 5'4" SpO2: 97% Weight: 168 lbs 06/17/2016 Blood Pressure 1: 144/86 Code: 8480-6 BMI: 29.5 Code: 28482-3 Heart Rate 1: 94 bpm Height: 5'4" [...] Encounters Encounter Performer Location Codes Date ( 88390 EST. PATIENT, LEVEL III Diagnosis: Cough[ICD10: R05] Diagnosis: Moderate persistent asthma with (acute) exacerbation[ICD10: J45.41] Lisseth Keys MD, [facility] CPT-4: 74324 10/05/2018 49627 EST. PATIENT, LEVEL III Diagnosis: Diverticulitis of large intestine without perforation or abscess with bleeding[ICD10: K57.33] [facility] CPT-4: 25819 08/20/2018 18341 EST. PATIENT, LEVEL IV Diagnosis: Other acute sinusitis[ICD10: J01.80] Diagnosis: Other allergic rhinitis[ICD10: J30.89] Leisa Keys MD, [facility] CPT- 4: 90456 07/24/2018 56021 EST. PATIENT, LEVEL III Diagnosis: Zoster without complications[ICD10: B02.9] Lisseth Keys MD, [facility] CPT-4: 79762 05/07/2018 88721 EST. PATIENT, LEVEL IV Diagnosis: Cough[ICD10: R05] Diagnosis: Fever presenting with conditions classified elsewhere[ICD10: R50.81] Leisa Keys MD, [facility] CPT-4: 60426 04/20/2018 12380 EST. PATIENT, LEVEL III Diagnosis: Other fatigue[ICD10: R53.83] Diagnosis: Vitamin D deficiency, unspecified[ICD10: E55.9] Diagnosis: Paresthesia of skin[ICD10: R20.2] Diagnosis: Mixed hyperlipidemia[ICD10: E78.2] Diagnosis: Cellulitis of left toe[ICD10: L03.032] Diagnosis: Essential (primary) hypertension[ICD10: I10] Leisa Keys MD, [facility] CPT-4: 83590 04/09/2018 03302 EST. PATIENT, LEVEL IV Diagnosis: Acute bronchitis due to other specified organisms[ICD10: J20.8] Diagnosis: Moderate persistent asthma with (acute) exacerbation[ICD10: J45.41] Leisa Keys MD, [facility] CPT-4: 71164 12/08/2017 77725 EST. PATIENT, LEVEL IV Diagnosis: Other acute sinusitis[ICD10: J01.80] Diagnosis: Other allergic rhinitis[ICD10: J30.89] Diagnosis: Moderate persistent asthma with (acute) exacerbation[ICD10: J45.41] Leisa Keys MD, [facility] CPT-4: 90149 12/01/2017 63313 EST. PATIENT, LEVEL IV Diagnosis: Moderate persistent asthma with (acute) exacerbation[ICD10: J45.41] Diagnosis: Other allergic rhinitis[ICD10: J30.89] Diagnosis: Gastro-esophageal reflux disease without esophagitis[ICD10: K21.9] Leisa Keys MD, [facility] CPT-4: 60810 10/10/2017 42254 EST. PATIENT, LEVEL III Diagnosis: Moderate persistent asthma with (acute) exacerbation[ICD10: J45.41] Diagnosis: Other allergic rhinitis[ICD10: J30.89] Diagnosis: Mixed hyperlipidemia[ICD10: E78.2] Leisa Keys MD, [facility] CPT-4: 61315 09/20/2017 01649 EST. PATIENT, LEVEL IV Diagnosis: Acute laryngopharyngitis[ICD10: J06.0] Diagnosis: Other acute sinusitis[ICD10: J01.80] Diagnosis: Other allergic rhinitis[ICD10: J30.89] Leisa Keys MD, [facility] CPT- 4: 45984 09/12/2017 01262 EST. PATIENT, LEVEL IV Diagnosis: Diverticulitis of large intestine without perforation or abscess with bleeding[ICD10: K57.33] Leisa Keys MD, [facility] CPT-4: 11281 08/18/2017 74599 EST. PATIENT, LEVEL IV Diagnosis: Other allergic rhinitis[ICD10: J30.89] Diagnosis: Moderate persistent asthma with (acute) exacerbation[ICD10: J45.41] Leisa Keys MD, [facility] CPT-4: 59144 06/12/2017 46206 EST. PATIENT, LEVEL IV Diagnosis: Diverticulitis of large intestine without perforation or abscess with bleeding[ICD10: K57.33] Leisa Keys MD, [facility] CPT-4: 00679 05/04/2017 91327 EST. PATIENT, LEVEL IV Diagnosis: Other allergic rhinitis[ICD10: J30.89] Diagnosis: Moderate persistent asthma with (acute) exacerbation[ICD10: J45.41] Leisa Keys MD, [facility] CPT-4: 71345 04/21/2017 10565 EST. PATIENT, LEVEL III Diagnosis: Moderate persistent asthma with (acute) exacerbation[ICD10: J45.41] Leisa Keys MD, [facility] CPT-4: 58049 03/03/2017 08646 EST. PATIENT, LEVEL IV Diagnosis: Moderate persistent asthma, uncomplicated[ICD10: J45.40] Diagnosis: Other mucopurulent conjunctivitis, left eye[ICD10: H10.022] Diagnosis: Acute laryngopharyngitis[ICD10: J06.0] Leisa Keys MD, [facility] CPT- 4: 85058 02/13/2017 60214 EST. PATIENT, LEVEL IV Diagnosis: Acute laryngopharyngitis[ICD10: J06.0] Diagnosis: Other acute sinusitis[ICD10: J01.80] Diagnosis: Other allergic rhinitis[ICD10: J30.89] Leisa Keys MD, [facility] CPT- 4: 22050 02/09/2017 97329 EST. PATIENT, LEVEL III Diagnosis: Other allergic rhinitis[ICD10: J30.89] Diagnosis: Moderate persistent asthma, uncomplicated[ICD10: J45.40] Leisa Keys MD, [facility] CPT-4: 36193 12/14/2016 07680 EST. PATIENT, LEVEL III Diagnosis: Other acute sinusitis[ICD10: J01.80] Diagnosis: Other allergic rhinitis[ICD10: J30.89] Diagnosis: Moderate persistent asthma, uncomplicated[ICD10: J45.40] Diagnosis: Gastro-esophageal reflux disease without esophagitis[ICD10: K21.9] Leisa Keys MD, [facility] CPT-4: 71364 12/05/2016 47296 EST. PATIENT, LEVEL IV Diagnosis: Other allergic rhinitis[ICD10: J30.89] Diagnosis: Moderate persistent asthma, uncomplicated[ICD10: J45.40] Diagnosis: Cough[ICD10: R05] Leisa Keys MD, [facility] CPT-4: 06743 09/23/2016 88887 EST. PATIENT, LEVEL IV Diagnosis: Moderate persistent asthma, uncomplicated[ICD10: J45.40] Diagnosis: Other allergic rhinitis[ICD10: J30.89] Leisa Keys MD, [facility] CPT- 4: 47425 09/14/2016 35382 EST. PATIENT, LEVEL IV Diagnosis: Other acute sinusitis[ICD10: J01.80] Leisa Keys MD, [facility] CPT- 4: 86184 07/08/2016 (55643) PREV VISIT NEW AGE 40-64 Diagnosis: Encounter for gynecological examination (general) (routine) without abnormal findings[ICD10: Z01.419] Diagnosis: Moderate persistent asthma, uncomplicated[ICD10: J45.40] Diagnosis: Essential (primary) hypertension[ICD10: I10] Diagnosis: Mixed hyperlipidemia[ICD10: E78.2] Leisa Keys MD, [facility] CPT-4: 98524 06/17/2016 Plan of Care Planned Activity Notes [...] is stable, monitor for acute changes. 10/05/2018 Patient Education: Patient Medication Summary Completed 10/05/2018 Visit Plan: Diverticulitis - rx for antibiotic sent to pt's pharmacy - pt advised to avoid seeds, nuts, popcorn, or any other food which has been proven to upset the pt's stomach. 08/20/2018 Appointment: Leisa Kirkpatrick WPtel: [address] [place], [place] [id number] (15 min) Moderate 08/20/2018 Patient Education: Patient [...] allergy spray. 07/24/2018 Appointment: Leisa Kirkpatrick [facility]Ptel[facility] (15 min) Moderate 07/24/2018 Patient Education: Patient Medication Summary Completed 07/24/2018 Appointment: Leisa Kirkpatrick WPtel: [facility] [place] (30 min) Complex 05/14/2018 Visit Plan: [...] contagious. 05/07/2018 Appointment: [facility] Greene [facility] [phone] [phone] [place] (15 min) Moderate 05/07/2018 Patient Education: [...] concerns. 04/20/2018 Appointment: [facility] [phone] [facility] [place] (15 min) Moderate 04/20/2018 Patient [...] indicated. 04/09/2018 Appointment: [facility] [phone] [facility] (15 min) Moderate 04/09/2018 Patient Education: Patient Medication Summary Completed 04/09/2018 Patient Education: Patient Medication Summary Completed 04/09/2018 Care Plan: B12 Pending 04/09/2018 Care Plan: Folate Pending 04/09/2018 Care Plan: Vitamin D 25 Oh Pending 04/09/2018 Care Plan: Lipid Pending 04/09/2018 Care Plan: SCREENINGMAMMOGRAPHYDIGITAL LOINC : 60647-3 Pending 04/09/2018 Visit Plan: Bronchitis - acute [...] changes. 12/08/2017 Appointment: [facility] [phone] [facility] (30 min) Complex 12/08/2017 Patient Education: [...] changes. 12/01/2017 Appointment: [facility] [phone] [facility] (15 min) Moderate 12/01/2017 Patient Education: [...] not improving. 10/10/2017 Appointment: Leisa Kirkpatrick WPtel: [phone] [facility] (15 min) Moderate 10/10/2017 Patient Education: Patient Medication Summary Completed 10/10/2017 Appointment: Leisa Kirkpatrick WPtel: [phone] [facility] (15 min) Moderate 10/06/2017 Visit Plan: Asthma [...] medications. 09/20/2017 Appointment: Leisa Kirkpatrick WPtel: [phone] [facility] (15 min) Moderate 09/20/2017 Patient Education: [...] spray. 09/12/2017 Appointment: [facility] Kirkpatrick [facility] [phone] [facility] (15 min) Moderate 09/12/2017 Patient Education: Patient Medication Summary Completed 09/12/2017 Patient Education: Obesity Completed 09/12/2017 Visit Plan: Diverticulitis - rx for antibiotic sent to pt's pharmacy - pt advised to avoid seeds, nuts, popcorn, or any other food which has been proven to upset the pt's stomach. 08/18/2017 Appointment: [facility] Kirkpatrick [facility] [phone] [facility] (30 min) Complex 08/18/2017 Patient Education: [...] spray. 06/12/2017 Appointment: Leisa Kirkpatrick WPtel: [phone] [facility] (10 min) Simple 06/12/2017 Patient Education: Patient Medication Summary Completed 06/12/2017 Visit Plan: Diverticulitis - rx for antibiotic sent to pt's pharmacy - pt advised to avoid seeds, nuts, popcorn, or any other food which has been proven to upset the pt's stomach. 05/04/2017 Appointment: Leisa Kirkpatrick WPtel: [phone] [facility] (30 min) Complex 05/04/2017 Patient Education: Patient [...] spray. 04/21/2017 Appointment: Leisa Kirkpatrick WPtel: [phone] [facility] (15 min) Moderate 04/21/2017 Patient Education: Patient [...] changes. 03/03/2017 Appointment: [facility] [phone] [facility] ([facility] min) Complex 03/03/2017 Patient Education: [...] daily. 02/13/2017 Appointment: [facility] [phone] [facility] [place] (10 min) Simple 02/13/2017 Patient [...] allergy spray. 02/09/2017 Appointment: Leisa Kirkpatrick WPtel: [address] [place] [address] (15 min) Moderate 02/09/2017 Patient Education: Patient [...] allergy spray. 12/14/2016 Appointment: Leisa Kirkpatrick WPtel: [address] [place] [address] (15 min) Moderate 12/14/2016 Patient Education: Patient [...] improving. 12/05/2016 Appointment: Leisa Kirkpatrick WPtel: [phone] [facility] (30 min) Complex 12/05/2016 Patient Education: Patient [...] acute changes. 09/23/2016 Appointment: [facility] [phone] [phone] (30 min) Complex 09/23/2016 Patient Education: [...] improvement. Allerg ies/asthma - pt sees an family program specialist who recently started her on Qvar and dexilant. They are referring her to pulmonology (Dr. Mcconnell) - pt is to notify clinic with any questions or concerns. 07/08/2016 Appointment: Liss[facility] Greene [facility]el[facility] [phone] [phone] (15 min) Moderate 07/08/2016 Patient Education: [...] Appointment: Lisseth Greene WPtel: [phone] [place] New Patient 06/17/2016 Patient Education: [...] pt is to be considered contagious. . Left great toe infection - The [...] show improvement. Allergies/asthma - pt sees an family program specialist who recently started her on Qvar [...]
--- OUTSIDE RECORDS SUMMARY | 2019-03-30 10:43 | XMS REPORT | CCD ---
Author Author Leisa Kirkpatrick MD, [facility] Address [address] [place] [address] Phone Care Team Providers Care Operator [employer] Name Role Phone PP Unavailable CCM Unavailable Summary Purpose Interface Exchange Insurance Providers Payer name Policy type / Coverage type Covered democrat ID Effective Begin Date Effective End Date [facility] [id number] Unknown Family history Father Diagnosis Age At Onset Heart Attack Unknown genetic disease Unknown Skin cancer Unknown Hypertension Unknown Mother Diagnosis Age At Onset Stroke Unknown Daughter Diagnosis Age At Onset Asthma Unknown Arthritis Unknown Social History Social History Element Codes Description Effective Dates Marital status Unknown Lev 10/10/2017 Number of children Unknown 2 06/17/[address]: 959919783 Never smoker 06/17/2016 Alcohol history Unknown occasionally [...] ICD-9: 053.9 ICD-10: B02.9 Active 05/07/2018 Unknown Cough ICD-9: 786.2 ICD-10: R05 Active 09/22/2016 Unknown Fever, unspecified ICD- 9: 780.60 ICD-10: [...] ICD-9: 493.12 ICD-10: J45.41 Active 03/03/2017 Unknown Gastro-esophageal reflux disease without esophagitis ICD-9: [...] complications ICD-9: 053.9 ICD-10: B02.9 05/07/2018 Active Cough ICD-9: 786.2 ICD-10: R05 09/22/2016 Active Fever, unspecified ICD- 9: 780.60 ICD-10: [...] exacerbation ICD-9: 493.12 ICD-10: J45.41 03/03/2017 Active Gastro-esophageal reflux disease without esophagitis ICD-9: [...] Start Date Stop Date Status Fill Instructions lisinopril 10 mg tablet RxNorm: 396862 TAKE 1 TABLET BY MOUTH DAILY 08/22/2018 02/17/2019 Active Generic For:ZESTRIL 10 MG TABLET 08/22/2018 10:43:05 AM prednisone 10 mg tablet RxNorm: 947425 Tablet(s) PO 07/24/2018 No Stop Date Active 40,40,30,30,20,20,10,10,5mg every other day x 2 doses Zithromax Z-Maykel 250 mg tablet RxNorm: 591608 1 Tablet(s) PO UD 07/24/2018 No Stop Date Active Protonix 20 mg tablet,delayed release RxNorm: 755700 1 Tablet(s) PO BID 05/23/2018 11/18/2018 Active acyclovir 400 mg tablet RxNorm: 821916 2 Tablet(s) PO QID 05/07/2018 05/16/2018 Inactive doxycycline hyclate 100 mg capsule RxNorm: 7941235 1 Capsule(s) PO BID 04/20/2018 04/29/2018 Inactive Bactrim DS 800 mg-160 mg tablet RxNorm: 648293 1 Tablet(s) PO BID 04/16/2018 04/18/2018 Inactive Bactrim DS 800 mg-160 mg tablet RxNorm: 905864 1 Tablet(s) PO BID 04/09/2018 04/15/2018 Inactive lisinopril 10 mg tablet RxNorm: 099949 TAKE 1 TABLET BY MOUTH DAILY 02/21/2018 08/19/2018 Inactive Generic For:ZESTRIL 10 MG TABLET 02/21/2018 11:39:12 AM prednisone 10 mg tablet RxNorm: 477753 Tablet(s) PO 60mg x 2 days, then 40mg x 2 days, then 20mg x 2 days, the 10mg x 2 days, then 5mg every other day x 2 doses 12/08/2017 No Stop Date Active disp qty sufficient doxycycline hyclate 100 mg capsule RxNorm: 3091169 1 Capsule(s) PO BID 12/08/2017 12/17/2017 Inactive albuterol sulfate 2.5 mg/3 mL (0.083 %) solution for nebulization RxNorm: 100375 3 Milliliter(s) INH Q4-6H 12/06/2017 No Stop Date Active prednisone 20 mg tablet RxNorm: 294936 Tablet(s) PO 40mg x 2 days, then 20mg x 2 days, then 10mg x 2 days 12/01/2017 No Stop Date Active Zithromax Z-Maykel 250 mg tablet RxNorm: 786589 1 Tablet(s) PO UD 12/01/2017 04/15/2018 Inactive levocetirizine 5 mg tablet RxNorm: 144994 1 Tablet(s) PO daily 11/13/2017 05/11/2018 Inactive Protonix 20 mg tablet,delayed release RxNorm: 004281 1 Tablet(s) PO BID 11/13/2017 05/11/2018 Inactive Protonix 20 mg tablet,delayed release RxNorm: 849952 1 Tablet(s) PO BID 10/10/2017 11/08/2017 Inactive Tessalon Perles 100 mg capsule RxNorm: 598153 1-2 Capsule(s) PO TID as needed 10/10/2017 10/14/2017 Inactive prednisone 20 mg tablet RxNorm: 924509 Tablet(s) PO 40mg x 2 days, then 20mg x 2 days, then 10mg x 2 days 09/20/2017 11/30/2017 Inactive doxycycline hyclate 100 mg capsule RxNorm: 8035269 1 Capsule(s) PO BID 09/20/2017 09/26/2017 Inactive Zithromax Z-Maykel 250 mg tablet RxNorm: 628863 1 Tablet(s) PO UD 09/12/2017 10/09/2017 Inactive albuterol sulfate 2.5 mg/3 mL (0.083 %) solution for nebulization RxNorm: 303788 3 Milliliter(s) INH Q4-6H 09/12/2017 12/05/2017 Inactive prednisone 20 mg tablet RxNorm: 907354 2 Tablet(s) PO daily 09/12/2017 09/16/2017 Inactive Zantac 150 mg tablet RxNorm: 467824 1 Tablet(s) PO BID 08/28/2017 08/22/2018 Inactive lisinopril 10 mg tablet RxNorm: 480820 1 Tablet(s) PO daily 08/28/2017 02/20/2018 Inactive Cipro 500 mg tablet RxNorm: 988779 1 Tablet(s) PO BID 08/18/2017 08/26/2017 Inactive metronidazole 500 mg tablet RxNorm: 462374 1 Tablet(s) PO TID 08/18/2017 08/26/2017 Inactive prednisone 20 mg tablet RxNorm: 118735 2 Tablet(s) PO BID 06/12/2017 06/16/2017 Inactive Cipro 500 mg tablet RxNorm: 048383 1 Tablet(s) PO BID 05/04/2017 05/13/2017 Inactive metronidazole 500 mg tablet RxNorm: 062481 1 Tablet(s) PO TID 05/04/2017 05/13/2017 Inactive Zantac 150 mg tablet RxNorm: 110783 1 Tablet(s) PO BID 04/27/2017 08/24/2017 Inactive prednisone 20 mg tablet RxNorm: 726322 2 Tablet(s) PO BID start if getting worse 04/21/2017 04/25/2017 Inactive levocetirizine 5 mg tablet RxNorm: 688687 1 Tablet(s) PO daily 04/21/2017 05/20/2017 Inactive prednisone 20 mg tablet RxNorm: 468826 1 Tablet(s) PO BID Start with 1 pill daily and see how effective it is - if still not effective increase to twice a day as discussed 03/03/2017 03/07/2017 Inactive lisinopril 10 mg tablet RxNorm: 970819 1 Tablet(s) PO daily 03/01/2017 08/27/2017 Inactive ciprofloxacin 0.3 % eye drops RxNorm: 222711 2 Drop(s) OPH QID 02/13/2017 02/17/2017 Inactive Zithromax 250 mg tablet RxNorm: 553895 1 Tablet(s) PO daily 02/13/2017 02/15/2017 Inactive Zithromax Z-Maykel 250 mg tablet RxNorm: 528096 1 Tablet(s) PO UD 02/09/2017 02/08/2017 Inactive Zithromax Z-Maykel 250 mg tablet RxNorm: 793067 1 Tablet(s) PO UD 02/09/2017 09/11/2017 Inactive Premarin 0.625 mg/gram vaginal cream RxNorm: 839035 1 Application VAG BIW 12/30/2016 No Stop Date Active Zantac 150 mg tablet RxNorm: 449107 1 Tablet(s) PO BID 12/05/2016 04/03/2017 Inactive prednisone 20 mg tablet RxNorm: 695930 2 Tablet(s) PO daily 12/05/2016 12/09/2016 Inactive Zithromax Z-Maykel 250 mg tablet RxNorm: 345547 Tablet(s) PO UD 12/05/2016 02/08/2017 Inactive lisinopril 10 mg tablet RxNorm: 924811 1 Tablet(s) PO daily 10/31/2016 02/27/2017 Inactive Tessalon Perles 100 mg capsule RxNorm: 764467 2 Capsule(s) PO TID as needed dyspnea 09/23/2016 09/27/2016 Inactive prednisone 20 mg tablet RxNorm: 305622 2 Tablet(s) PO daily 09/23/2016 09/27/2016 Inactive Qvar 80 mcg/actuation Metered Aerosol oral inhaler RxNorm: 535008 1 INH BID started by her sustainability specialist 08/02/2016 09/12/2016 Inactive Zithromax Z-Maykel 250 mg tablet RxNorm: 014675 Tablet(s) PO UD 07/08/2016 12/04/2016 Inactive Tessalon Perles 100 mg capsule RxNorm: 143719 2 Capsule(s) PO TID as needed dyspnea 07/08/2016 07/12/2016 Inactive prednisone 20 mg tablet RxNorm: 940756 1 Tablet(s) PO UD 07/08/2016 09/22/2016 Inactive Premarin 0.625 mg/gram vaginal cream RxNorm: 384905 1 Application VAG BIW 06/21/2016 12/29/2016 Inactive Dulera 200 mcg-5 mcg/actuation HFA aerosol inhaler RxNorm: 8351013 2 INH Q2H 06/17/2016 No Stop Date Active lisinopril 10 mg tablet RxNorm: 857531 1 Tablet(s) PO daily 06/17/2016 10/14/2016 Inactive olopatadine 0.1 % eye drops RxNorm: 8143219 Drop(s) OPH PRN No Start Date Active ProAir HFA 90 mcg/actuation aerosol inhaler RxNorm: 648166 2 Puff(s) INH PRN No Start Date Active Zyrtec 10 mg capsule RxNorm: 3115488 1 Capsule(s) PO daily No Start Date Active lutein 20 mg capsule RxNorm: 015548 1 Capsule(s) PO daily No Start Date Active [place] Oil 1,000 mg capsule RxNorm: 1 Capsule(s) PO daily No Start Date Active montelukast 10 mg tablet RxNorm: 458337 1 Tablet(s) PO daily No Start Date Active Vitamin D3 1,000 unit capsule RxNorm: 153553 Capsule(s) PO No Start Date Active B12 sublingual RxNorm: 62008 sublingual No Start Date Active pravastatin 20 mg tablet RxNorm: 346113 1 Tablet(s) PO daily No Start Date Active zinc picolinate 50 mg tablet RxNorm: 1 Tablet(s) PO daily No Start Date Active chromium picolinate 200 mcg capsule RxNorm: 223464 1 Capsule(s) PO daily No Start Date Active magnesium RxNorm: 1 PO BID No Start Date Active premarin 0.5% Vaginal cream RxNorm: 1 VAG daily No Start Date Active Xolair 150 mg subcutaneous solution RxNorm: 5780392 1 SQ monthly No Start Date Active folate #7-pc dha-pe wov-ZUIS-crotoh-IF-multivitamin #46 oral RxNorm: oral No Start Date Active prednisone RxNorm: 8640 miscellaneous No Start Date Active Dulera 200 mcg-5 mcg/actuation HFA aerosol inhaler RxNorm: 3912144 2 INH Q4H No Start Date 06/16/2016 Inactive lisinopril 10 mg tablet RxNorm: 280272 1 Tablet(s) PO daily No Start Date [...] classified elsewhere ICD-10: R50.81 ICD-9: 780.61 04/20/2018 Cough ICD-10: R05 ICD-9: 786.2 04/20/2018 Encounter for screening mammogram for malignant neoplasm of breast ICD-10: Z12.31 ICD-9: V76.12 04/09/2018 Vitamin D deficiency, unspecified ICD-10: E55.9 ICD-9: 268.9 04/09/2018 Essential (primary) hypertension ICD-10: I10 ICD-9: 401.1 04/09/2018 Mixed hyperlipidemia ICD-10: E78.2 ICD-9: 272.4 04/09/2018 Cellulitis of left toe ICD-10: L03.032 ICD-9: 681.10 04/09/2018 Other fatigue ICD-10: R53.83 ICD-9: 780.79 04/09/2018 Paresthesia of skin ICD-10: R20.2 ICD-9: 782.0 04/09/2018 Moderate persistent asthma with (acute) exacerbation ICD-10: J45.41 ICD-9: 493.12 12/08/2017 Acute bronchitis due to other specified organisms ICD-10: J20.8 ICD-9: 466.0 12/08/2017 Gastro-esophageal reflux disease without esophagitis ICD-10: K21.9 ICD-9: 530.81 10/10/2017 Acute laryngopharyngitis ICD-10: J06.0 ICD-9: 465.0 09/12/2017 Moderate persistent asthma, uncomplicated ICD-10: J45.40 ICD-9: 493.90 02/13/2017 Other mucopurulent conjunctivitis, left eye ICD-10: H10.022 ICD-9: 372.03 02/13/2017 Essential (primary) hypertension ICD-10: I10 ICD-9: 401.9 06/17/2016 Encounter for gynecological examination (general) (routine) without abnormal findings ICD-10: Z01.419 ICD-9: V72.31 06/17/2016 Reason For Visit Reason For Visit Effective Dates Notes abdominal pain 08/20/2018 sinus congestion 07/24/2018 rash [...] Item Code Result Date C A/B FLU [id number] Influenza A Scr TNP:Duplicate Order 07/25/2018 C A/B FLU [id number] Influenza B Scr TNP:Duplicate Order 07/25/2018 C A/B FLU [id number] Influenza Intrp B AG:PRID:PT:NOSE:NOM:IF TNP:Duplicate Order 07/25/2018 C A/B FLU [id number] IC OK? TNP:Duplicate Order 07/25/2018 C RAP A SC [id number] Strep A TNP:Lab Request 02/09/2017 C RAP A SC [id number] IC OK? TNP:Lab Request 02/09/2017 Review of Systems System Result Effective Dates Constitutional No chills 08/20/2018 Constitutional No diaphoresis [...] No Procedures data Vital Signs Date Vital 08/20/2018 Blood Pressure 1: 142/86 Code: 8480-6 BMI: 29.9 Code: 70860-6 Heart Rate 1: 79 bpm Height: 5'4" SpO2: 98% Weight: 174 lbs 07/24/2018 Blood Pressure 1: 150/84 Code: 8480-6 BMI: 29.9 Code: 44859-8 Heart Rate 1: 116 bpm Height: 5'4" SpO2: 96% Temperature: 37.0 (C) / 98.6 (F) Weight: 174 lbs 05/07/2018 Blood Pressure 1: 130/80 Code: 8480-6 BMI: 29.9 Code: 15804-0 Heart Rate 1: 93 bpm Height: 5'4" SpO2: 95% Weight: 174 lbs 04/20/2018 Blood Pressure 1: 134/70 Code: 8480-6 Heart Rate 1: 86 bpm Height: SpO2: 98% Weight: 04/09/2018 Blood Pressure 1: 132/76 Code: 8480-6 BMI: 29.5 Code: 40123-4 Heart Rate 1: 80 bpm Height: 5'4" SpO2: 98% Weight: 172 lbs 12/08/2017 Blood Pressure 1: 148/76 Code: 8480-6 BMI: 29.9 Code: 05669-1 Heart Rate 1: 97 bpm Height: 5'4" SpO2: 97% Weight: 174 lbs 12/01/2017 Blood Pressure 1: 124/74 Code: 8480-6 BMI: 29.9 Code: 62811-3 Heart Rate 1: 110 bpm Height: 5'4" SpO2: 97% Temperature: 37.4 (C) / 99.4 (F) Weight: 174 lbs 10/10/2017 Blood Pressure 1: 128/80 Code: 8480-6 BMI: 29.8 Code: 00002-9 Heart Rate 1: 91 bpm Height: 5'4" SpO2: 98% Temperature: 36.5 (C) / 97.7 (F) Weight: 173 lbs 8 oz 09/20/2017 Blood Pressure 1: 152/88 Code: 8480-6 BMI: 29.9 Code: 09012-4 Heart Rate 1: 87 bpm Height: 5'4" SpO2: 96% Weight: 174 lbs 09/12/2017 Blood Pressure 1: 134/74 Code: 8480-6 BMI: 29.9 Code: 75124-1 Heart Rate 1: 90 bpm Height: 5'4" SpO2: 96% Weight: 174 lbs 08/18/2017 Blood Pressure 1: 128/68 Code: 8480-6 Heart Rate 1: 88 bpm Height: SpO2: 97% Weight: 06/12/2017 Blood Pressure 1: 130/70 Code: 8480-6 BMI: 29.2 Code: 69979-6 Heart Rate 1: 94 bpm Height: 5'4" SpO2: 95% Weight: 170 lbs 05/04/2017 Blood Pressure 1: 138/80 Code: 8480-6 BMI: 29.9 Code: 52631-1 Heart Rate 1: 84 bpm Height: 5'4" SpO2: 97% Weight: 174 lbs 04/21/2017 Blood Pressure 1: 130/72 Code: 8480-6 BMI: 29.9 Code: 86058-2 Heart Rate 1: 90 bpm Height: 5'4" SpO2: 96% Weight: 174 lbs 03/03/2017 Blood Pressure 1: 136/78 Code: 8480-6 BMI: 29.9 Code: 53105-8 Heart Rate 1: 91 bpm Height: 5'4" SpO2: 96% Weight: 174 lbs 02/13/2017 Blood Pressure 1: 116/74 Code: 8480-6 BMI: 29.2 Code: 16504-0 Heart Rate 1: 91 bpm Height: 5'4" SpO2: 94% Weight: 170 lbs 02/09/2017 Blood Pressure 1: 120/72 Code: 8480-6 BMI: 29.0 Code: 13889-3 Heart Rate 1: 100 bpm Height: 5'4" SpO2: 97% Temperature: 37.4 (C) / 99.3 (F) Weight: 169 lbs 12/14/2016 Blood Pressure 1: 130/72 Code: 8480-6 BMI: 29.5 Code: 27336-9 Heart Rate 1: 100 bpm Height: 5'4" SpO2: 95% Weight: 172 lbs 12/05/2016 Blood Pressure 1: 136/78 Code: 8480-6 BMI: 29.2 Code: 55944-7 Heart Rate 1: 117 bpm Height: 5'4" SpO2: 97% Weight: 170 lbs 09/23/2016 Blood Pressure 1: 130/74 Code: 8480-6 BMI: 30.2 Code: 72379-2 Heart Rate 1: 102 bpm Height: 5'4" SpO2: 94% Weight: 176 lbs 09/14/2016 Blood Pressure 1: 128/74 Code: 8480-6 BMI: 29.4 Code: 26905-7 Heart Rate 1: 90 bpm Height: 5'4" SpO2: 97% Weight: 171 lbs 07/08/2016 Blood Pressure 1: 118/64 Code: 8480-6 BMI: 28.8 Code: 21053-5 Heart Rate 1: 115 bpm Height: 5'4" SpO2: 97% Weight: 168 lbs 06/17/2016 Blood Pressure 1: 144/86 Code: 8480-6 BMI: 29.5 Code: 17307-6 Heart Rate 1: 94 bpm Height: 5'4" SpO2: 96% Weight: 172 lbs Functional Status No Functional Status data History of Present Illness Symptom Name Status Result Effective Date Notes abdominal pain Location in the LLQ 08/20/2018 [...] Directive data Encounters Encounter Performer Location Codes EST. PATIENT, LEVEL III Diagnosis: Diverticulitis of large intestine without perforation or abscess with bleeding[ICD10: K57.33] [facility] CPT-4: 90892 08/20/2018 51970 EST. PATIENT, LEVEL IV Diagnosis: Other acute sinusitis[ICD10: J01.80] Diagnosis: Other allergic rhinitis[ICD10: J30.89] [facility] CPT- 4: 23876 07/24/2018 03497 EST. PATIENT, LEVEL III Diagnosis: Zoster without complications[ICD10: B02.9] Lisseth Keys MD, [facility] CPT-4: 00236 05/07/2018 82010 EST. PATIENT, LEVEL IV Diagnosis: Cough[ICD10: R05] Diagnosis: Fever presenting with conditions classified elsewhere[ICD10: R50.81] Leisa Keys MD, [facility] CPT-4: 85007 04/20/2018 37106 EST. PATIENT, LEVEL III Diagnosis: Other fatigue[ICD10: R53.83] Diagnosis: Vitamin D deficiency, unspecified[ICD10: E55.9] Diagnosis: Paresthesia of skin[ICD10: R20.2] Diagnosis: Mixed hyperlipidemia[ICD10: E78.2] Diagnosis: Cellulitis of left toe[ICD10: L03.032] Diagnosis: Essential (primary) hypertension[ICD10: I10] Leisa Keys MD, [facility] CPT-4: 81280 04/09/2018 94924 EST. PATIENT, LEVEL IV Diagnosis: Acute bronchitis due to other specified organisms[ICD10: J20.8] Diagnosis: Moderate persistent asthma with (acute) exacerbation[ICD10: J45.41] Leisa Keys MD, [facility] CPT-4: 11879 12/08/2017 57124 EST. PATIENT, LEVEL IV Diagnosis: Other acute sinusitis[ICD10: J01.80] Diagnosis: Other allergic rhinitis[ICD10: J30.89] Diagnosis: Moderate persistent asthma with (acute) exacerbation[ICD10: J45.41] Leisa Keys MD, [facility] CPT-4: 75853 12/01/2017 75794 EST. PATIENT, LEVEL IV Diagnosis: Moderate persistent asthma with (acute) exacerbation[ICD10: J45.41] Diagnosis: Other allergic rhinitis[ICD10: J30.89] Diagnosis: Gastro-esophageal reflux disease without esophagitis[ICD10: K21.9] Leisa Keys MD, [facility] CPT-4: 02391 10/10/2017 59684 EST. PATIENT, LEVEL III Diagnosis: Moderate persistent asthma with (acute) exacerbation[ICD10: J45.41] Diagnosis: Other allergic rhinitis[ICD10: J30.89] Diagnosis: Mixed hyperlipidemia[ICD10: E78.2] Leisa Keys MD, [facility] CPT-4: 87201 09/20/2017 92474 EST. PATIENT, LEVEL IV Diagnosis: Acute laryngopharyngitis[ICD10: J06.0] Diagnosis: Other acute sinusitis[ICD10: J01.80] Diagnosis: Other allergic rhinitis[ICD10: J30.89] Leisa Keys MD, [facility] CPT- 4: 66594 09/12/2017 03044 EST. PATIENT, LEVEL IV Diagnosis: Diverticulitis of large intestine without perforation or abscess with bleeding[ICD10: K57.33] Leisa Keys MD, [facility] CPT-4: 87752 08/18/2017 50823 EST. PATIENT, LEVEL IV Diagnosis: Other allergic rhinitis[ICD10: J30.89] Diagnosis: Moderate persistent asthma with (acute) exacerbation[ICD10: J45.41] Leisa Keys MD, [facility] CPT-4: 68549 06/12/2017 97695 EST. PATIENT, LEVEL IV Diagnosis: Diverticulitis of large intestine without perforation or abscess with bleeding[ICD10: K57.33] Leisa Keys MD, [facility] CPT-4: 52826 05/04/2017 15698 EST. PATIENT, LEVEL IV Diagnosis: Other allergic rhinitis[ICD10: J30.89] Diagnosis: Moderate persistent asthma with (acute) exacerbation[ICD10: J45.41] Leisa Keys MD, [facility] CPT-4: 16901 04/21/2017 92974 EST. PATIENT, LEVEL III Diagnosis: Moderate persistent asthma with (acute) exacerbation[ICD10: J45.41] Leisa Keys MD, [facility] CPT-4: 50369 03/03/2017 10973 EST. PATIENT, LEVEL IV Diagnosis: Moderate persistent asthma, uncomplicated[ICD10: J45.40] Diagnosis: Other mucopurulent conjunctivitis, left eye[ICD10: H10.022] Diagnosis: Acute laryngopharyngitis[ICD10: J06.0] Leisa Keys MD, [facility] CPT- 4: 74708 02/13/2017 76389 EST. PATIENT, LEVEL IV Diagnosis: Acute laryngopharyngitis[ICD10: J06.0] Diagnosis: Other acute sinusitis[ICD10: J01.80] Diagnosis: Other allergic rhinitis[ICD10: J30.89] Leisa Keys MD, [facility] CPT- 4: 24550 02/09/2017 19112 EST. PATIENT, LEVEL III Diagnosis: Other allergic rhinitis[ICD10: J30.89] Diagnosis: Moderate persistent asthma, uncomplicated[ICD10: J45.40] Leisa Keys MD, [facility] CPT-4: 61030 12/14/2016 32316 EST. PATIENT, LEVEL III Diagnosis: Other acute sinusitis[ICD10: J01.80] Diagnosis: Other allergic rhinitis[ICD10: J30.89] Diagnosis: Moderate persistent asthma, uncomplicated[ICD10: J45.40] Diagnosis: Gastro-esophageal reflux disease without esophagitis[ICD10: K21.9] Leisa Keys MD, [facility] CPT-4: 37044 12/05/2016 35315 EST. PATIENT, LEVEL IV Diagnosis: Other allergic rhinitis[ICD10: J30.89] Diagnosis: Moderate persistent asthma, uncomplicated[ICD10: J45.40] Diagnosis: Cough[ICD10: R05] Leisa Keys MD, [facility] CPT-4: 99821 09/23/2016 57353 EST. PATIENT, LEVEL IV Diagnosis: Moderate persistent asthma, uncomplicated[ICD10: J45.40] Diagnosis: Other allergic rhinitis[ICD10: J30.89] Leisa Keys MD, [facility] CPT- 4: 76418 09/14/2016 98693 EST. PATIENT, LEVEL IV Diagnosis: Other acute sinusitis[ICD10: J01.80] Leisa Keys MD, [facility] CPT- 4: 06386 07/08/2016 (64139) PREV VISIT NEW AGE 40-64 Diagnosis: Encounter for gynecological examination (general) (routine) without abnormal findings[ICD10: Z01.419] Diagnosis: Moderate persistent asthma, uncomplicated[ICD10: J45.40] Diagnosis: Essential (primary) hypertension[ICD10: I10] Diagnosis: Mixed hyperlipidemia[ICD10: E78.2] Leisa Keys MD, [facility] CPT-4: 30384 06/17/2016 Plan of Care Planned Activity Notes Codes Status Date Appointment: Leisa Kirkpatrick WPtel: [address] [place], [place] [address] [place] (15 min) Moderate 08/20/2018 Patient Education: Patient Medication Summary Completed 08/20/2018 Patient Education: Diverticulitis Completed 08/20/2018 Appointment: Leisa Kirkpatrick WPtel: [phone] [facility] [place] (15 min) Moderate 07/24/2018 Patient Education: Patient Medication Summary Completed 07/24/2018 Appointment: [facility] [phone] [facility] [place] [place] ([place]) Complex 05/14/2018 Appointment: Liss[facility] Greene [facility] [phone] [facility] [phone] [place] (15 min) Moderate 05/07/2018 Patient Education: Patient Medication Summary Completed 05/07/2018 Appointment: Leisa Kirkpatrick WPtel: [phone] [facility] [place] (15 min) Moderate 04/20/2018 Patient Education: Patient Medication Summary Completed 04/20/2018 Appointment: [facility]patrick [facility] [phone] [facility] [place] [place] (15 min) Moderate 04/09/2018 Patient Education: Patient Medication Summary Completed 04/09/2018 Patient Education: Patient Medication Summary Completed 04/09/2018 Care Plan: SCREENINGMAMMOGRAPHYDIGITAL LOINC : 11945-5 Pending 04/09/2018 Care Plan: B12 Pending 04/09/2018 Care Plan: Folate Pending 04/09/2018 Care Plan: Vitamin D 25 Oh Pending 04/09/2018 Care Plan: Lipid Pending 04/09/2018 Appointment: [facility] Kirkpatrick [facility] [phone] [facility] [place] [place] (30 min) Complex 12/08/2017 Patient Education: Patient Medication Summary Completed 12/08/2017 Appointment: [facility] Kirkpatrick [facility]el[facility] [phone] [facility] [place] [place] (15 min) Moderate 12/01/2017 Patient Education: Patient Medication Summary Completed 12/01/2017 Appointment: [facility] Kirkpatrick [facility]el[facility] [phone] [facility] [place] [place] (15 min) Moderate 10/10/2017 Patient Education: Patient Medication Summary Completed 10/10/2017 Appointment: [facility] Kirkpatrick [facility]el[facility] [phone] [facility] [place] [place] ([place] min) Moderate 10/06/2017 Appointment: Leisa Kirkpatrick WPtel: [facility] [place] [place] (15 min) Moderate 09/20/2017 Patient Education: Patient Medication Summary Completed 09/20/2017 Patient Education: Obesity Completed 09/20/2017 Care Plan: Comp Metabolic Pending 09/20/2017 Care Plan: Cbc With Differential Pending 09/20/2017 Care Plan: Tsh Pending 09/20/2017 Care Plan: Lipid Pending 09/20/2017 Appointment: Leisa Kirkpatrick WPtel: [facility] [place] [place] ([place] min) Moderate 09/12/2017 Patient Education: Patient Medication Summary Completed 09/12/2017 Patient Education: Obesity Completed 09/12/2017 Appointment: Leisa Kirkpatrick WPtel: [facility] [place] [place] (30 min) Complex 08/18/2017 Patient Education: Patient Medication Summary Completed 08/18/2017 Appointment: Leisa Kirkpatrick WPtel: [facility] [place] [place] (10 min) Simple 06/12/2017 Patient Education: Patient Medication Summary Completed 06/12/2017 Appointment: Le[facility] Kirkpatrick WPtel: [phone] [facility] [place] [place] (30 min) Complex 05/04/2017 Patient Education: Patient Medication Summary Completed 05/04/2017 Appointment: Leisa Kirkpatrick WPtel: [facility] [place] [place] (15 min) Moderate 04/21/2017 Patient Education: Patient Medication Summary Completed 04/21/2017 Patient Education: Obesity Completed 04/21/2017 Appointment: [facility] Kirkpatrick [facility]Ptel[facility] [phone] [facility] [place] (30 min) Complex 03/03/2017 Patient Education: Patient Medication Summary Completed 03/03/2017 Patient Education: Obesity Completed 03/03/2017 Appointment: [facility] Kirkpatrick [facility]el[facility] [phone] [facility] [place] (10 min) Simple 02/13/2017 Patient Education: Patient Medication Summary Completed 02/13/2017 Appointment: Leisa Kirkpatrick WPtel: [facility] [place] (15 min) Moderate 02/09/2017 Patient Education: Patient Medication Summary Completed 02/09/2017 Patient Education: Obesity Completed 02/09/2017 Appointment: Le[facility]patrick [facility] [place] [id number] (15 min) Moderate 12/14/2016 Patient Education: Patient Medication Summary Completed 12/14/2016 Appointment: Leisa Kirkpatrick WPtel: [facility] [place] [id number] ([place] min) Complex 12/05/2016 Patient Education: Patient Medication Summary Completed 12/05/2016 Patient Education: Obesity Completed 12/05/2016 Appointment: Lisseth Greene WPtel: [facility] [place]5 [phone] [place] (30 min) Complex 09/23/2016 Patient Education: Patient Medication Summary Completed 09/23/2016 Patient Education: Obesity Completed 09/23/2016 Patient Education: Patient Medication Summary Completed 09/14/2016 Appointment: Lisseth Greene WPtel: [facility] [place] [id number] [place] (15 min) Moderate 07/08/2016 Patient Education: Patient Medication Summary Completed 07/08/2016 Patient Education: Obesity Completed 07/08/2016 Appointment: Lisseth Greene WPtel: [id number] [facility] [phone] [place] New Patient 06/17/2016 Patient Education: Patient Medication Summary Completed 06/17/2016 Care Plan: PAP Pending 06/17/2016 Instructions No Instructions
--- OUTSIDE RECORDS SUMMARY | 2019-03-30 10:45 | XMS REPORT | CCD ---
Author Author Leisa Kirkpatrick MD, [facility] Address [address] [place] [address] Phone Care Team Providers Care Farmer Cash Grain Name Role Phone PP Unavailable CCM Unavailable Summary Purpose Interface Exchange Insurance Providers Payer name Policy type / Coverage type Covered democrat ID Effective Begin Date Effective End Date [facility] [id number] Unknown Family history Father Diagnosis Age At Onset Heart Attack Unknown genetic disease Unknown Skin cancer Unknown Hypertension Unknown Mother Diagnosis Age At Onset Stroke Unknown Daughter Diagnosis Age At Onset Asthma Unknown Arthritis Unknown Social History Social History Element Codes Description Effective Dates Marital status Unknown Lev 10/10/2017 Number of children Unknown 2 06/17/[address]: 150739666 Never smoker 06/17/2016 Alcohol history Unknown occasionally [...] Fill Instructions prednisone 10 mg tablet RxNorm: 670754 Tablet(s) PO 07/24/2018 No Stop Date Active 40,40,30,30,20,20,10,10,5mg every other day x 2 doses Zithromax Z-Maykel 250 mg tablet RxNorm: 138842 1 Tablet(s) PO UD 07/24/2018 No Stop Date Active Protonix 20 mg tablet,delayed release RxNorm: 975728 1 Tablet(s) PO BID 05/23/2018 11/18/2018 Active acyclovir 400 mg tablet RxNorm: 765611 2 Tablet(s) PO QID 05/07/2018 05/16/2018 Inactive doxycycline hyclate 100 mg capsule RxNorm: 6081515 1 Capsule(s) PO BID 04/20/2018 04/29/2018 Inactive Bactrim DS 800 mg-160 mg tablet RxNorm: 269064 1 Tablet(s) PO BID 04/16/2018 04/18/2018 Inactive Bactrim DS 800 mg-160 mg tablet RxNorm: 382688 1 Tablet(s) PO BID 04/09/2018 04/15/2018 Inactive lisinopril 10 mg tablet RxNorm: 104567 TAKE 1 TABLET BY MOUTH DAILY 02/21/2018 08/19/2018 Inactive Generic For:ZESTRIL 10 MG TABLET 02/21/2018 11:39:12 AM prednisone 10 mg tablet RxNorm: 405282 Tablet(s) PO 60mg x 2 days, then 40mg x 2 days, then 20mg x 2 days, the 10mg x 2 days, then 5mg every other day x 2 doses 12/08/2017 No Stop Date Active disp qty sufficient doxycycline hyclate 100 mg capsule RxNorm: 3032304 1 Capsule(s) PO BID 12/08/2017 12/17/2017 Inactive albuterol sulfate 2.5 mg/3 mL (0.083 %) solution for nebulization RxNorm: 180379 3 Milliliter(s) INH Q4-6H 12/06/2017 No Stop Date Active prednisone 20 mg tablet RxNorm: 448578 Tablet(s) PO 40mg x 2 days, then 20mg x 2 days, then 10mg x 2 days 12/01/2017 No Stop Date Active Zithromax Z-Maykel 250 mg tablet RxNorm: 025851 1 Tablet(s) PO UD 12/01/2017 04/15/2018 Inactive levocetirizine 5 mg tablet RxNorm: 323098 1 Tablet(s) PO daily 11/13/2017 05/11/2018 Inactive Protonix 20 mg tablet,delayed release RxNorm: 652032 1 Tablet(s) PO BID 11/13/2017 05/11/2018 Inactive Protonix 20 mg tablet,delayed release RxNorm: 104914 1 Tablet(s) PO BID 10/10/2017 11/08/2017 Inactive Tessalon Perles 100 mg capsule RxNorm: 486296 1-2 Capsule(s) PO TID as needed 10/10/2017 10/14/2017 Inactive prednisone 20 mg tablet RxNorm: 840439 Tablet(s) PO 40mg x 2 days, then 20mg x 2 days, then 10mg x 2 days 09/20/2017 11/30/2017 Inactive doxycycline hyclate 100 mg capsule RxNorm: 4113473 1 Capsule(s) PO BID 09/20/2017 09/26/2017 Inactive Zithromax Z-Maykel 250 mg tablet RxNorm: 082850 1 Tablet(s) PO UD 09/12/2017 10/09/2017 Inactive albuterol sulfate 2.5 mg/3 mL (0.083 %) solution for nebulization RxNorm: 850900 3 Milliliter(s) INH Q4-6H 09/12/2017 12/05/2017 Inactive prednisone 20 mg tablet RxNorm: 250489 2 Tablet(s) PO daily 09/12/2017 09/16/2017 Inactive Zantac 150 mg tablet RxNorm: 287310 1 Tablet(s) PO BID 08/28/2017 08/22/2018 Active lisinopril 10 mg tablet RxNorm: 953038 1 Tablet(s) PO daily 08/28/2017 02/20/2018 Inactive Cipro 500 mg tablet RxNorm: 268035 1 Tablet(s) PO BID 08/18/2017 08/26/2017 Inactive metronidazole 500 mg tablet RxNorm: 953303 1 Tablet(s) PO TID 08/18/2017 08/26/2017 Inactive prednisone 20 mg tablet RxNorm: 339390 2 Tablet(s) PO BID 06/12/2017 06/16/2017 Inactive Cipro 500 mg tablet RxNorm: 033986 1 Tablet(s) PO BID 05/04/2017 05/13/2017 Inactive metronidazole 500 mg tablet RxNorm: 943882 1 Tablet(s) PO TID 05/04/2017 05/13/2017 Inactive Zantac 150 mg tablet RxNorm: 618976 1 Tablet(s) PO BID 04/27/2017 08/24/2017 Inactive prednisone 20 mg tablet RxNorm: 277750 2 Tablet(s) PO BID start if getting worse 04/21/2017 04/25/2017 Inactive levocetirizine 5 mg tablet RxNorm: 244695 1 Tablet(s) PO daily 04/21/2017 05/20/2017 Inactive prednisone 20 mg tablet RxNorm: 894494 1 Tablet(s) PO BID Start with 1 pill daily and see how effective it is - if still not effective increase to twice a day as discussed 03/03/2017 03/07/2017 Inactive lisinopril 10 mg tablet RxNorm: 827471 1 Tablet(s) PO daily 03/01/2017 08/27/2017 Inactive ciprofloxacin 0.3 % eye drops RxNorm: 429269 2 Drop(s) OPH QID 02/13/2017 02/17/2017 Inactive Zithromax 250 mg tablet RxNorm: 762240 1 Tablet(s) PO daily 02/13/2017 02/15/2017 Inactive Zithromax Z-Maykel 250 mg tablet RxNorm: 575491 1 Tablet(s) PO UD 02/09/2017 02/08/2017 Inactive Zithromax Z-Maykel 250 mg tablet RxNorm: 106672 1 Tablet(s) PO UD 02/09/2017 09/11/2017 Inactive Premarin 0.625 mg/gram vaginal cream RxNorm: 339370 1 Application VAG BIW 12/30/2016 No Stop Date Active Zantac 150 mg tablet RxNorm: 680903 1 Tablet(s) PO BID 12/05/2016 04/03/2017 Inactive prednisone 20 mg tablet RxNorm: 919423 2 Tablet(s) PO daily 12/05/2016 12/09/2016 Inactive Zithromax Z-Maykel 250 mg tablet RxNorm: 657207 Tablet(s) PO UD 12/05/2016 02/08/2017 Inactive lisinopril 10 mg tablet RxNorm: 083938 1 Tablet(s) PO daily 10/31/2016 02/27/2017 Inactive Tessalon Perles 100 mg capsule RxNorm: 526382 2 Capsule(s) PO TID as needed dyspnea 09/23/2016 09/27/2016 Inactive prednisone 20 mg tablet RxNorm: 279854 2 Tablet(s) PO daily 09/23/2016 09/27/2016 Inactive Qvar 80 mcg/actuation Metered Aerosol oral inhaler RxNorm: 913277 1 INH BID started by her job service specialist 08/02/2016 09/12/2016 Inactive Zithromax Z-Maykel 250 mg tablet RxNorm: 735400 Tablet(s) PO UD 07/08/2016 12/04/2016 Inactive Tessalon Perles 100 mg capsule RxNorm: 915271 2 Capsule(s) PO TID as needed dyspnea 07/08/2016 07/12/2016 Inactive prednisone 20 mg tablet RxNorm: 190362 1 Tablet(s) PO UD 07/08/2016 09/22/2016 Inactive Premarin 0.625 mg/gram vaginal cream RxNorm: 016975 1 Application VAG BIW 06/21/2016 12/29/2016 Inactive Dulera 200 mcg-5 mcg/actuation HFA aerosol inhaler RxNorm: 7418325 2 INH Q2H 06/17/2016 No Stop Date Active lisinopril 10 mg tablet RxNorm: 336716 1 Tablet(s) PO daily 06/17/2016 10/14/2016 Inactive olopatadine 0.1 % eye drops RxNorm: 2756245 Drop(s) OPH PRN No Start Date Active ProAir HFA 90 mcg/actuation aerosol inhaler RxNorm: 309508 2 Puff(s) INH PRN No Start Date Active Zyrtec 10 mg capsule RxNorm: 4230133 1 Capsule(s) PO daily No Start Date Active lutein 20 mg capsule RxNorm: 703793 1 Capsule(s) PO daily No Start Date Active [place] Oil 1,000 mg capsule RxNorm: 1 Capsule(s) PO daily No Start Date Active montelukast 10 mg tablet RxNorm: 873278 1 Tablet(s) PO daily No Start Date Active Vitamin D3 1,000 unit capsule RxNorm: 253118 Capsule(s) PO No Start Date Active B12 sublingual RxNorm: 84803 sublingual No Start Date Active pravastatin 20 mg tablet RxNorm: 881953 1 Tablet(s) PO daily No Start Date Active zinc picolinate 50 mg tablet RxNorm: 1 Tablet(s) PO daily No Start Date Active chromium picolinate 200 mcg capsule RxNorm: 858962 1 Capsule(s) PO daily No Start Date Active magnesium RxNorm: 1 PO BID No Start Date Active premarin 0.5% Vaginal cream RxNorm: 1 VAG daily No Start Date Active Xolair 150 mg subcutaneous solution RxNorm: 3760033 1 SQ monthly No Start Date Active folate #7-pc dha-pe grt-ENCS-tcdhko-IF-multivitamin #46 oral RxNorm: oral No Start Date Active prednisone RxNorm: 8640 miscellaneous No Start Date Active Dulera 200 mcg-5 mcg/actuation HFA aerosol inhaler RxNorm: 1108979 2 INH Q4H No Start Date 06/16/2016 Inactive lisinopril 10 mg tablet RxNorm: 221822 1 Tablet(s) PO daily No Start Date [...] left toe ICD-10: L03.032 ICD-9: 681.10 04/09/2018 Acute bronchitis due to other specified organisms ICD-10: J20.8 ICD-9: 466.0 12/08/2017 Moderate persistent asthma with (acute) exacerbation ICD-10: J45.41 ICD-9: 493.12 12/08/2017 Gastro-esophageal reflux disease without esophagitis ICD-10: [...] Item Code Result Date C A/B FLU [id number] Influenza A Scr TNP:Duplicate Order 07/25/2018 C A/B FLU [id number] Influenza B Scr TNP:Duplicate Order 07/25/2018 C A/B FLU [id number] IC OK? TNP:Duplicate Order 07/25/2018 C A/B FLU [id number] Influenza Intrp B AG:PRID:PT:NOSE:NOM:IF TNP:Duplicate Order 07/25/2018 C RAP A SC [id number] Strep A TNP:Lab Request 02/09/2017 C RAP A SC [id number] IC OK? TNP:Lab Request 02/09/2017 Review of [...] 1: 142/86 Code: 8480-6 BMI: 29.9 Code: 27540-1 Heart Rate 1: 79 bpm Height: 5'4" SpO2: 98% Weight: 174 lbs 07/24/2018 Blood Pressure 1: 150/84 Code: 8480-6 BMI: 29.9 Code: 03922-0 Heart Rate 1: 116 bpm Height: 5'4" SpO2: 96% Temperature: 37.0 (C) / 98.6 (F) Weight: 174 lbs 05/07/2018 Blood Pressure 1: 130/80 Code: 8480-6 BMI: 29.9 Code: 44985-6 Heart Rate 1: 93 bpm Height: 5'4" SpO2: 95% Weight: 174 lbs 04/20/2018 Blood Pressure 1: 134/70 Code: 8480-6 Heart Rate 1: 86 bpm Height: SpO2: 98% Weight: 04/09/2018 Blood Pressure 1: 132/76 Code: 8480-6 BMI: 29.5 Code: 05619-8 Heart Rate 1: 80 bpm Height: 5'4" SpO2: 98% Weight: 172 lbs 12/08/2017 Blood Pressure 1: 148/76 Code: 8480-6 BMI: 29.9 Code: 06490-5 Heart Rate 1: 97 bpm Height: 5'4" SpO2: 97% Weight: 174 lbs 12/01/2017 Blood Pressure 1: 124/74 Code: 8480-6 BMI: 29.9 Code: 02622-1 Heart Rate 1: 110 bpm Height: 5'4" SpO2: 97% Temperature: 37.4 (C) / 99.4 (F) Weight: 174 lbs 10/10/2017 Blood Pressure 1: 128/80 Code: 8480-6 BMI: 29.8 Code: 94809-2 Heart Rate 1: 91 bpm Height: 5'4" SpO2: 98% Temperature: 36.5 (C) / 97.7 (F) Weight: 173 lbs 8 oz 09/20/2017 Blood Pressure 1: 152/88 Code: 8480-6 BMI: 29.9 Code: 58629-9 Heart Rate 1: 87 bpm Height: 5'4" SpO2: 96% Weight: 174 lbs 09/12/2017 Blood Pressure 1: 134/74 Code: 8480-6 BMI: 29.9 Code: 19163-9 Heart Rate 1: 90 bpm Height: 5'4" SpO2: 96% Weight: 174 lbs 08/18/2017 Blood Pressure 1: 128/68 Code: 8480-6 Heart Rate 1: 88 bpm Height: SpO2: 97% Weight: 06/12/2017 Blood Pressure 1: 130/70 Code: 8480-6 BMI: 29.2 Code: 81011-0 Heart Rate 1: 94 bpm Height: 5'4" SpO2: 95% Weight: 170 lbs 05/04/2017 Blood Pressure 1: 138/80 Code: 8480-6 BMI: 29.9 Code: 41100-6 Heart Rate 1: 84 bpm Height: 5'4" SpO2: 97% Weight: 174 lbs 04/21/2017 Blood Pressure 1: 130/72 Code: 8480-6 BMI: 29.9 Code: 62319-4 Heart Rate 1: 90 bpm Height: 5'4" SpO2: 96% Weight: 174 lbs 03/03/2017 Blood Pressure 1: 136/78 Code: 8480-6 BMI: 29.9 Code: 30976-2 Heart Rate 1: 91 bpm Height: 5'4" SpO2: 96% Weight: 174 lbs 02/13/2017 Blood Pressure 1: 116/74 Code: 8480-6 BMI: 29.2 Code: 82920-7 Heart Rate 1: 91 bpm Height: 5'4" SpO2: 94% Weight: 170 lbs 02/09/2017 Blood Pressure 1: 120/72 Code: 8480-6 BMI: 29.0 Code: 82080-9 Heart Rate 1: 100 bpm Height: 5'4" SpO2: 97% Temperature: 37.4 (C) / 99.3 (F) Weight: 169 lbs 12/14/2016 Blood Pressure 1: 130/72 Code: 8480-6 BMI: 29.5 Code: 21036-6 Heart Rate 1: 100 bpm Height: 5'4" SpO2: 95% Weight: 172 lbs 12/05/2016 Blood Pressure 1: 136/78 Code: 8480-6 BMI: 29.2 Code: 78283-0 Heart Rate 1: 117 bpm Height: 5'4" SpO2: 97% Weight: 170 lbs 09/23/2016 Blood Pressure 1: 130/74 Code: 8480-6 BMI: 30.2 Code: 35317-1 Heart Rate 1: 102 bpm Height: 5'4" SpO2: 94% Weight: 176 lbs 09/14/2016 Blood Pressure 1: 128/74 Code: 8480-6 BMI: 29.4 Code: 30623-8 Heart Rate 1: 90 bpm Height: 5'4" SpO2: 97% Weight: 171 lbs 07/08/2016 Blood Pressure 1: 118/64 Code: 8480-6 BMI: 28.8 Code: 49154-3 Heart Rate 1: 115 bpm Height: 5'4" SpO2: 97% Weight: 168 lbs 06/17/2016 Blood Pressure 1: 144/86 Code: 8480-6 BMI: 29.5 Code: 98686-4 Heart Rate 1: 94 bpm Height: 5'4" [...] Codes Date EST. PATIENT, LEVEL III Diagnosis: Diverticulitis of large intestine without perforation or abscess with bleeding[ICD10: K57.33] Leisa Keys MD, [facility] CPT-4: 66547 08/20/2018 53920 EST. PATIENT, LEVEL IV Diagnosis: Other acute sinusitis[ICD10: J01.80] Diagnosis: Other allergic rhinitis[ICD10: J30.89] Leisa Keys MD, [facility] CPT- 4: 55316 07/24/2018 14467 EST. PATIENT, LEVEL III Diagnosis: Zoster without complications[ICD10: B02.9] Lisseth Keys MD, [facility] CPT-4: 75631 05/07/2018 14757 EST. PATIENT, LEVEL IV Diagnosis: Cough[ICD10: R05] Diagnosis: Fever presenting with conditions classified elsewhere[ICD10: R50.81] Leisa Keys MD, [facility] CPT-4: 09750 04/20/2018 14611 EST. PATIENT, LEVEL III Diagnosis: Other fatigue[ICD10: R53.83] Diagnosis: Vitamin D deficiency, unspecified[ICD10: E55.9] Diagnosis: Paresthesia of skin[ICD10: R20.2] Diagnosis: Mixed hyperlipidemia[ICD10: E78.2] Diagnosis: Cellulitis of left toe[ICD10: L03.032] Diagnosis: Essential (primary) hypertension[ICD10: I10] Leisa Keys MD, [facility] CPT-4: 47086 04/09/2018 98577 EST. PATIENT, LEVEL IV Diagnosis: Acute bronchitis due to other specified organisms[ICD10: J20.8] Diagnosis: Moderate persistent asthma with (acute) exacerbation[ICD10: J45.41] Leisa Keys MD, [facility] CPT-4: 87952 12/08/2017 84474 EST. PATIENT, LEVEL IV Diagnosis: Other acute sinusitis[ICD10: J01.80] Diagnosis: Other allergic rhinitis[ICD10: J30.89] Diagnosis: Moderate persistent asthma with (acute) exacerbation[ICD10: J45.41] Leisa Keys MD, [facility] CPT-4: 02781 12/01/2017 25226 EST. PATIENT, LEVEL IV Diagnosis: Moderate persistent asthma with (acute) exacerbation[ICD10: J45.41] Diagnosis: Other allergic rhinitis[ICD10: J30.89] Diagnosis: Gastro-esophageal reflux disease without esophagitis[ICD10: K21.9] Leisa Keys MD, [facility] CPT-4: 99504 10/10/2017 35165 EST. PATIENT, LEVEL III Diagnosis: Moderate persistent asthma with (acute) exacerbation[ICD10: J45.41] Diagnosis: Other allergic rhinitis[ICD10: J30.89] Diagnosis: Mixed hyperlipidemia[ICD10: E78.2] Leisa Keys MD, [facility] CPT-4: 43945 09/20/2017 35560 EST. PATIENT, LEVEL IV Diagnosis: Acute laryngopharyngitis[ICD10: J06.0] Diagnosis: Other acute sinusitis[ICD10: J01.80] Diagnosis: Other allergic rhinitis[ICD10: J30.89] Leisa Keys MD, [facility] CPT- 4: 15535 09/12/2017 53010 EST. PATIENT, LEVEL IV Diagnosis: Diverticulitis of large intestine without perforation or abscess with bleeding[ICD10: K57.33] Leisa Keys MD, [facility] CPT-4: 61620 08/18/2017 79818 EST. PATIENT, LEVEL IV Diagnosis: Other allergic rhinitis[ICD10: J30.89] Diagnosis: Moderate persistent asthma with (acute) exacerbation[ICD10: J45.41] Leisa Keys MD, [facility] CPT-4: 30594 06/12/2017 02226 EST. PATIENT, LEVEL IV Diagnosis: Diverticulitis of large intestine without perforation or abscess with bleeding[ICD10: K57.33] Leisa Keys MD, [facility] CPT-4: 43855 05/04/2017 52718 EST. PATIENT, LEVEL IV Diagnosis: Other allergic rhinitis[ICD10: J30.89] Diagnosis: Moderate persistent asthma with (acute) exacerbation[ICD10: J45.41] Leisa Keys MD, [facility] CPT-4: 33019 04/21/2017 38017 EST. PATIENT, LEVEL III Diagnosis: Moderate persistent asthma with (acute) exacerbation[ICD10: J45.41] Leisa Keys MD, [facility] CPT-4: 42540 03/03/2017 67900 EST. PATIENT, LEVEL IV Diagnosis: Moderate persistent asthma, uncomplicated[ICD10: J45.40] Diagnosis: Other mucopurulent conjunctivitis, left eye[ICD10: H10.022] Diagnosis: Acute laryngopharyngitis[ICD10: J06.0] Leisa Keys MD, [facility] CPT- 4: 56629 02/13/2017 26370 EST. PATIENT, LEVEL IV Diagnosis: Acute laryngopharyngitis[ICD10: J06.0] Diagnosis: Other acute sinusitis[ICD10: J01.80] Diagnosis: Other allergic rhinitis[ICD10: J30.89] Leisa Keys MD, [facility] CPT- 4: 85087 02/09/2017 87665 EST. PATIENT, LEVEL III Diagnosis: Other allergic rhinitis[ICD10: J30.89] Diagnosis: Moderate persistent asthma, uncomplicated[ICD10: J45.40] Leisa Keys MD, [facility] CPT-4: 75955 12/14/2016 77539 EST. PATIENT, LEVEL III Diagnosis: Other acute sinusitis[ICD10: J01.80] Diagnosis: Other allergic rhinitis[ICD10: J30.89] Diagnosis: Moderate persistent asthma, uncomplicated[ICD10: J45.40] Diagnosis: Gastro-esophageal reflux disease without esophagitis[ICD10: K21.9] Leisa Keys MD, [facility] CPT-4: 19253 12/05/2016 34660 EST. PATIENT, LEVEL IV Diagnosis: Other allergic rhinitis[ICD10: J30.89] Diagnosis: Moderate persistent asthma, uncomplicated[ICD10: J45.40] Diagnosis: Cough[ICD10: R05] Leisa Keys MD, [facility] CPT-4: 40525 09/23/2016 32624 EST. PATIENT, LEVEL IV Diagnosis: Moderate persistent asthma, uncomplicated[ICD10: J45.40] Diagnosis: Other allergic rhinitis[ICD10: J30.89] Leisa Keys MD, [facility] CPT- 4: 89647 09/14/2016 15671 EST. PATIENT, LEVEL IV Diagnosis: Other acute sinusitis[ICD10: J01.80] Leisa Keys MD, [facility] CPT- 4: 27044 07/08/2016 (92579) PREV VISIT NEW AGE 40-64 Diagnosis: Encounter for gynecological examination (general) (routine) without abnormal findings[ICD10: Z01.419] Diagnosis: Moderate persistent asthma, uncomplicated[ICD10: J45.40] Diagnosis: Essential (primary) hypertension[ICD10: I10] Diagnosis: Mixed hyperlipidemia[ICD10: E78.2] Leisa Keys MD, [facility] CPT-4: 18115 06/17/2016 Plan of Care Planned Activity Notes Codes Status Date Visit Plan: Diverticulitis - rx for antibiotic sent to pt's pharmacy - pt advised to avoid seeds, nuts, popcorn, or any other food which has been proven to upset the pt's stomach. 08/20/2018 Patient Education: Patient Medication Summary Completed [...] spray. 07/24/2018 Appointment: Leisa Kirkpatrick WPtel: [phone] (15 min) Moderate 07/24/2018 Patient Education: Patient Medication Summary Completed 07/24/2018 Appointment: Leisa Kirkpatrick WPtel: [facility] (30 min) Complex 05/14/2018 Visit Plan: Shingles [...] considered contagious. 05/07/2018 Appointment: Lisseth Greene WPtel: [facility]9 [phone] (15 min) Moderate 05/07/2018 Patient Education: [...] or concerns. 04/20/2018 Appointment: Leisa Kirkpatrick WPtel: [facility] (15 min) Moderate 04/20/2018 Patient Education: Patient [...] as indicated. 04/09/2018 Appointment: Le[facility] Kirkpatrick [facility]Ptel: [facility] [place] [place] (15 min) Moderate 04/09/2018 Patient Education: Patient Medication Summary Completed 04/09/2018 Patient Education: Patient Medication Summary Completed 04/09/2018 Care Plan: SCREENINGMAMMOGRAPHYDIGITAL LOINC : 46219-5 Pending 04/09/2018 Care Plan: B12 Pending 04/09/2018 Care Plan: Folate Pending 04/09/2018 Care Plan: Vitamin D 25 Oh Pending 04/09/2018 Care Plan: Lipid Pending 04/09/2018 Visit Plan: Bronchitis - acute [...] changes. 12/08/2017 Appointment: [facility] Kirkpatrick [phone] [place] ([place] min) Complex 12/08/2017 Patient Education: Patient [...] changes. 12/01/2017 Appointment: [facility] Kirkpatrick [facility]: [phone] [place] (15 min) Moderate 12/01/2017 Patient Education: Patient [...] are not improving. 10/10/2017 Appointment: Leisa Kirkpatricktel: [address] [place], [place] [phone] (15 min) Moderate 10/10/2017 Patient Education: Patient Medication Summary Completed 10/10/2017 Appointment: Leisa Kirkpatricktel: [facility]5 [facility] (15 min) Moderate 10/06/2017 Visit Plan: [...] to medications. 09/20/2017 Appointment: Leisa Kirkpatrick WPtel: [phone] [facility] (15 min) Moderate 09/20/2017 Patient Education: [...] allergy spray. 09/12/2017 Appointment: Leisa Kirkpatrick WPtel: [phone] [facility] (15 min) Moderate 09/12/2017 Patient Education: Patient Medication Summary Completed 09/12/2017 Patient Education: Obesity Completed 09/12/2017 Visit Plan: Diverticulitis - rx for antibiotic sent to pt's pharmacy - pt advised to avoid seeds, nuts, popcorn, or any other food which has been proven to upset the pt's stomach. 08/18/2017 Appointment: [facility] Kirkpatrick [phone] [place] ([place] min) Complex 08/18/2017 Patient Education: Patient [...] spray. 06/12/2017 Appointment: [facility] Kirkpatrick [facility]: [phone] [place] (10 min) Simple 06/12/2017 Patient Education: Patient Medication Summary Completed 06/12/2017 Visit Plan: Diverticulitis - rx for antibiotic sent to pt's pharmacy - pt advised to avoid seeds, nuts, popcorn, or any other food which has been proven to upset the pt's stomach. 05/04/2017 Appointment: Leisa Kirkpatrick [facility]Ptel: [phone] [place] (30 min) Complex 05/04/2017 Patient Education: Patient [...] allergy spray. 04/21/2017 Appointment: Leisa Kirkpatrick [facility]Ptel: [phone] [place] (15 min) Moderate 04/21/2017 Patient Education: Patient [...] changes. 03/03/2017 Appointment: [facility] Kirkpatrick [facility]: [phone] [place] ([place] min) Complex 03/03/2017 Patient Education: Patient [...] daily. 02/13/2017 Appointment: Leisa Kirkpatrick WPtel: [phone] [facility] (10 min) Simple 02/13/2017 Patient Education: Patient [...] spray. 02/09/2017 Appointment: Leisa Kirkpatrick [facility]Ptel: [phone] [place] (15 min) Moderate 02/09/2017 Patient Education: Patient [...] spray. 12/14/2016 Appointment: Leisa Kirkpatrick WPtel: [facility]5 [facility] (15 min) Moderate 12/14/2016 Patient Education: Patient [...] improving. 12/05/2016 Appointment: Leisa Kirkpatrick WPtel: [facility]5 [facility] (30 min) Complex 12/05/2016 Patient Education: [...] changes. 09/23/2016 Appointment: Lisseth Greene [facility]Ptel: [phone] [phone] (30 min) Complex 09/23/2016 Patient Education: Patient [...] improvement. Allerg ies/asthma - pt sees an job service specialist who recently started her on Qvar and dexilant. They are referring her to pulmonology (Dr. Mcconnell) - pt is to notify clinic with any questions or concerns. 07/08/2016 Appointment: Lisseth Greene [facility]el[phone] [phone] (15 min) Moderate 07/08/2016 Patient Education: Patient [...] to medications. 06/17/2016 Appointment: Lisseth Greene WPtel: [address] [place], [place] [phone] [place] New Patient 06/17/2016 Patient Education: Patient [...] show improvement. Allergies/asthma - pt sees an job service specialist who recently started her on [...]
--- OUTSIDE RECORDS SUMMARY | 2019-03-30 10:46 | XMS REPORT | CCD ---
Author Author Leisa Kirkpatrick MD, [facility] Address [address] [place] [address] Phone Care Team Providers Care Seat Builder Name Role Phone PP Unavailable CCM Unavailable Summary Purpose Interface Exchange Insurance Providers Payer name Policy type / Coverage type Covered constitution party ID Effective Begin Date Effective End Date [facility] [id number] 2015 Unknown Family history Father Diagnosis Age At Onset Heart Attack Unknown genetic disease Unknown Skin cancer Unknown Hypertension Unknown Mother Diagnosis Age At Onset Stroke Unknown Daughter Diagnosis Age At Onset Asthma Unknown Arthritis Unknown Social History Social History Element Codes Description Effective Dates Marital status Unknown Lev 10/10/2017 Number of children Unknown 2 06/17/[address]: 430548250 Never smoker 06/17/2016 Alcohol history Unknown occasionally [...] ICD-9: 530.81 ICD-10: K21.9 Active 12/05/2016 Unknown Mixed hyperlipidemia ICD- 9: 272.4 ICD-10: E78.2 Active 06/16/2016 Unknown Hyperlipidemia Unknown Active 09/20/2017 Unknown Acute laryngopharyngitis ICD-9: 465.0 ICD-10: J06.0 Active 02/09/2017 Unknown Diverticulitis of large intestine without perforation or abscess with bleeding ICD-9: 562.13 ICD-10: K57.33 Active 05/04/2017 Unknown Asthma Unknown Active 02/13/2017 Unknown Moderate persistent asthma, uncomplicated ICD-9: 493.90 ICD-10: J45.40 Active 09/22/2016 Unknown Other mucopurulent conjunctivitis, left eye ICD-9: 372.03 ICD-10: H10.022 Active 02/13/2017 Unknown Cough ICD-9: 786.2 ICD-10: R05 Active [...] esophagitis ICD-9: 530.81 ICD-10: K21.9 12/05/2016 Active Mixed hyperlipidemia ICD- 9: 272.4 ICD-10: E78.2 06/16/2016 Active Hyperlipidemia Unknown 09/20/2017 Active Acute laryngopharyngitis ICD-9: 465.0 ICD-10: J06.0 02/09/2017 Active Diverticulitis of large intestine without perforation or abscess with bleeding ICD-9: 562.13 ICD-10: K57.33 05/04/2017 Active Asthma Unknown 02/13/2017 Active Moderate persistent asthma, uncomplicated ICD-9: 493.90 ICD-10: J45.40 09/22/2016 Active Other mucopurulent conjunctivitis, left eye ICD-9: 372.03 ICD-10: H10.022 02/13/2017 Active Cough ICD-9: 786.2 ICD-10: R05 09/22/2016 Active Encounter for gynecological examination (general) (routine) without abnormal findings ICD-9: V72.31 ICD-10: Z01.419 06/16/2016 Active Essential (primary) hypertension ICD-9: 401.9 ICD-10: I10 06/16/2016 Active Medications Medication Codes Instructions Start Date Stop Date Status Fill Instructions Zithromax Z-Maykel 250 mg tablet RxNorm: 356184 1 Tablet(s) PO UD 12/01/2017 No Stop Date Active prednisone 20 mg tablet RxNorm: 598373 Tablet(s) PO 40mg x 2 days, then 20mg x 2 days, then 10mg x 2 days 12/01/2017 No Stop Date Active levocetirizine 5 mg tablet RxNorm: 087085 1 Tablet(s) PO daily 11/13/2017 05/11/2018 Active Protonix 20 mg tablet,delayed release RxNorm: 557072 1 Tablet(s) PO BID 11/13/2017 05/11/2018 Active Protonix 20 mg tablet,delayed release RxNorm: 850396 1 Tablet(s) PO BID 10/10/2017 11/08/2017 Inactive Tessalon Perles 100 mg capsule RxNorm: 764215 1-2 Capsule(s) PO TID as needed 10/10/2017 10/14/2017 Inactive prednisone 20 mg tablet RxNorm: 890244 Tablet(s) PO 40mg x 2 days, then 20mg x 2 days, then 10mg x 2 days 09/20/2017 11/30/2017 Inactive doxycycline hyclate 100 mg capsule RxNorm: 9207785 1 Capsule(s) PO BID 09/20/2017 09/26/2017 Inactive albuterol sulfate 2.5 mg/3 mL (0.083 %) solution for nebulization RxNorm: 828178 3 Milliliter(s) INH Q4-6H 09/12/2017 No Stop Date Active Zithromax Z-Maykel 250 mg tablet RxNorm: 269750 1 Tablet(s) PO UD 09/12/2017 10/09/2017 Inactive prednisone 20 mg tablet RxNorm: 237878 2 Tablet(s) PO daily 09/12/2017 09/16/2017 Inactive lisinopril 10 mg tablet RxNorm: 811495 1 Tablet(s) PO daily 08/28/2017 02/23/2018 Active Zantac 150 mg tablet RxNorm: 029527 1 Tablet(s) PO BID 08/28/2017 08/22/2018 Active Cipro 500 mg tablet RxNorm: 381823 1 Tablet(s) PO BID 08/18/2017 08/27/2017 Inactive metronidazole 500 mg tablet RxNorm: 943017 1 Tablet(s) PO TID 08/18/2017 08/27/2017 Inactive prednisone 20 mg tablet RxNorm: 000994 2 Tablet(s) PO BID 06/12/2017 06/16/2017 Inactive Cipro 500 mg tablet RxNorm: 832085 1 Tablet(s) PO BID 05/04/2017 05/13/2017 Inactive metronidazole 500 mg tablet RxNorm: 063439 1 Tablet(s) PO TID 05/04/2017 05/13/2017 Inactive Zantac 150 mg tablet RxNorm: 335293 1 Tablet(s) PO BID 04/27/2017 08/24/2017 Inactive prednisone 20 mg tablet RxNorm: 620599 2 Tablet(s) PO BID start if getting worse 04/21/2017 04/25/2017 Inactive levocetirizine 5 mg tablet RxNorm: 506033 1 Tablet(s) PO daily 04/21/2017 05/20/2017 Inactive prednisone 20 mg tablet RxNorm: 590210 1 Tablet(s) PO BID Start with 1 pill daily and see how effective it is - if still not effective increase to twice a day as discussed 03/03/2017 03/07/2017 Inactive lisinopril 10 mg tablet RxNorm: 868513 1 Tablet(s) PO daily 03/01/2017 08/27/2017 Inactive ciprofloxacin 0.3 % eye drops RxNorm: 786975 2 Drop(s) OPH QID 02/13/2017 02/17/2017 Inactive Zithromax 250 mg tablet RxNorm: 627106 1 Tablet(s) PO daily 02/13/2017 02/15/2017 Inactive Zithromax Z-Maykel 250 mg tablet RxNorm: 209794 1 Tablet(s) PO UD 02/09/2017 02/08/2017 Inactive Zithromax Z-Maykel 250 mg tablet RxNorm: 263201 1 Tablet(s) PO UD 02/09/2017 09/11/2017 Inactive Premarin 0.625 mg/gram vaginal cream RxNorm: 174264 1 Application VAG BIW 12/30/2016 No Stop Date Active Zantac 150 mg tablet RxNorm: 016473 1 Tablet(s) PO BID 12/05/2016 04/03/2017 Inactive prednisone 20 mg tablet RxNorm: 094475 2 Tablet(s) PO daily 12/05/2016 12/09/2016 Inactive Zithromax Z-Maykel 250 mg tablet RxNorm: 659466 Tablet(s) PO UD 12/05/2016 02/08/2017 Inactive lisinopril 10 mg tablet RxNorm: 109522 1 Tablet(s) PO daily 10/31/2016 02/27/2017 Inactive Tessalon Perles 100 mg capsule RxNorm: 974300 2 Capsule(s) PO TID as needed dyspnea 09/23/2016 09/27/2016 Inactive prednisone 20 mg tablet RxNorm: 907983 2 Tablet(s) PO daily 09/23/2016 09/27/2016 Inactive Qvar 80 mcg/actuation Metered Aerosol oral inhaler RxNorm: 982857 1 INH BID started by her data management specialist 08/02/2016 09/12/2016 Inactive Zithromax Z-Maykel 250 mg tablet RxNorm: 505990 Tablet(s) PO UD 07/08/2016 12/04/2016 Inactive Tessalon Perles 100 mg capsule RxNorm: 119346 2 Capsule(s) PO TID as needed dyspnea 07/08/2016 07/12/2016 Inactive prednisone 20 mg tablet RxNorm: 673184 1 Tablet(s) PO UD 07/08/2016 09/22/2016 Inactive Premarin 0.625 mg/gram vaginal cream RxNorm: 297745 1 Application VAG BIW 06/21/2016 12/29/2016 Inactive Dulera 200 mcg-5 mcg/actuation HFA aerosol inhaler RxNorm: 3451302 2 INH Q2H 06/17/2016 No Stop Date Active lisinopril 10 mg tablet RxNorm: 901692 1 Tablet(s) PO daily 06/17/2016 10/14/2016 Inactive olopatadine 0.1 % eye drops RxNorm: 5235194 Drop(s) OPH PRN No Start Date Active ProAir HFA 90 mcg/actuation aerosol inhaler RxNorm: 509139 2 Puff(s) INH PRN No Start Date Active Zyrtec 10 mg capsule RxNorm: 2884020 1 Capsule(s) PO daily No Start Date Active lutein 20 mg capsule RxNorm: 013267 1 Capsule(s) PO daily No Start Date Active [place] Oil 1,000 mg capsule RxNorm: 1 Capsule(s) PO daily No Start Date Active montelukast 10 mg tablet RxNorm: 765252 1 Tablet(s) PO daily No Start Date Active Vitamin D3 1,000 unit capsule RxNorm: 271909 Capsule(s) PO No Start Date Active B12 sublingual RxNorm: 17327 sublingual No Start Date Active pravastatin 20 mg tablet RxNorm: 792189 1 Tablet(s) PO daily No Start Date Active zinc picolinate 50 mg tablet RxNorm: 1 Tablet(s) PO daily No Start Date Active chromium picolinate 200 mcg capsule RxNorm: 140369 1 Capsule(s) PO daily No Start Date Active magnesium RxNorm: 1 PO BID No Start Date Active premarin 0.5% Vaginal cream RxNorm: 1 VAG daily No Start Date Active Xolair 150 mg subcutaneous solution RxNorm: 5337978 1 SQ monthly No Start Date Active folate #7-pc dha-pe iga-OTJV-yfaiwq-IF-multivitamin #46 oral RxNorm: oral No Start Date Active prednisone RxNorm: 8640 miscellaneous No Start Date Active Dulera 200 mcg-5 mcg/actuation HFA aerosol inhaler RxNorm: 6267019 2 INH Q4H No Start Date 06/16/2016 Inactive lisinopril 10 mg tablet RxNorm: 928820 1 Tablet(s) PO daily No Start Date 06/16/2016 Inactive Medication Administered No Medication Administered data Immunizations No Immunization data Assessments Condition Codes Effective Dates Moderate persistent asthma with (acute) exacerbation ICD-10: J45.41 ICD-9: 493.12 12/01/2017 Other acute sinusitis ICD-10: J01.80 ICD-9: 461.8 12/01/2017 Other allergic rhinitis ICD-10: J30.89 ICD-9: 477.8 12/01/2017 Gastro-esophageal reflux disease without esophagitis ICD-10: K21.9 ICD-9: 530.81 10/10/2017 Mixed hyperlipidemia ICD-10: E78.2 ICD-9: 272.4 09/20/2017 Acute laryngopharyngitis ICD-10: J06.0 ICD-9: 465.0 09/12/2017 Diverticulitis of large intestine without perforation or abscess with bleeding ICD-10: K57.33 ICD-9: 562.13 08/18/2017 Other mucopurulent conjunctivitis, left eye ICD-10: H10.022 ICD-9: 372.03 02/13/2017 Moderate persistent asthma, uncomplicated ICD-10: J45.40 ICD-9: 493.90 02/13/2017 Cough ICD-10: R05 ICD-9: 786.2 09/23/2016 Essential (primary) hypertension ICD-10: I10 ICD-9: 401.9 06/17/2016 Encounter for gynecological examination (general) (routine) without abnormal findings ICD-10: Z01.419 ICD-9: V72.31 06/17/2016 Reason For Visit Reason For Visit Effective Dates Notes sinus congestion 12/01/2017 cough 10/10/2017 chest congestion 09/20/2017 cough 09/12/2017 abdominal pain 08/18/2017 cough 06/12/2017 abdominal pain 05/04/2017 cough 04/21/2017 cough 03/03/2017 cough 02/13/2017 sinus congestion 02/09/2017 cough 12/14/2016 sinus congestion 12/05/2016 cough 09/23/2016 nasal allergies 09/14/2016 sinus congestion 07/08/2016 well woman exam (40-65 years) 06/17/2016 Results Observation Observation Code Item Item Code Result Date C RAP A SC [id number] Strep A TNP:Lab Request 02/09/2017 C RAP A SC [id number] IC OK? TNP:Lab Request 02/09/2017 Review of Systems System Result Effective Dates Constitutional recent illness 12/01/2017 Constitutional No chills [...] time 12/14/2016 None Full Exam - General 1995 Constitutional general appearance Overall: well developed 12/05/2016 [...] No Procedures data Vital Signs Date Vital 12/01/2017 Blood Pressure 1: 124/74 Code: 8480-6 BMI: 29.9 Code: 48153-3 Heart Rate 1: 110 bpm Height: 5'4" SpO2: 97% Temperature: 37.4 (C) / 99.4 (F) Weight: 174 lbs 10/10/2017 Blood Pressure 1: 128/80 Code: 8480-6 BMI: 29.8 Code: 01086-7 Heart Rate 1: 91 bpm Height: 5'4" SpO2: 98% Temperature: 36.5 (C) / 97.7 (F) Weight: 173 lbs 8 oz 09/20/2017 Blood Pressure 1: 152/88 Code: 8480-6 BMI: 29.9 Code: 18748-7 Heart Rate 1: 87 bpm Height: 5'4" SpO2: 96% Weight: 174 lbs 09/12/2017 Blood Pressure 1: 134/74 Code: 8480-6 BMI: 29.9 Code: 07046-8 Heart Rate 1: 90 bpm Height: 5'4" SpO2: 96% Weight: 174 lbs 08/18/2017 Blood Pressure 1: 128/68 Code: 8480-6 Heart Rate 1: 88 bpm Height: SpO2: 97% Weight: 06/12/2017 Blood Pressure 1: 130/70 Code: 8480-6 BMI: 29.2 Code: 08699-9 Heart Rate 1: 94 bpm Height: 5'4" SpO2: 95% Weight: 170 lbs 05/04/2017 Blood Pressure 1: 138/80 Code: 8480-6 BMI: 29.9 Code: 03254-5 Heart Rate 1: 84 bpm Height: 5'4" SpO2: 97% Weight: 174 lbs 04/21/2017 Blood Pressure 1: 130/72 Code: 8480-6 BMI: 29.9 Code: 61562-1 Heart Rate 1: 90 bpm Height: 5'4" SpO2: 96% Weight: 174 lbs 03/03/2017 Blood Pressure 1: 136/78 Code: 8480-6 BMI: 29.9 Code: 54669-3 Heart Rate 1: 91 bpm Height: 5'4" SpO2: 96% Weight: 174 lbs 02/13/2017 Blood Pressure 1: 116/74 Code: 8480-6 BMI: 29.2 Code: 41392-0 Heart Rate 1: 91 bpm Height: 5'4" SpO2: 94% Weight: 170 lbs 02/09/2017 Blood Pressure 1: 120/72 Code: 8480-6 BMI: 29.0 Code: 10575-6 Heart Rate 1: 100 bpm Height: 5'4" SpO2: 97% Temperature: 37.4 (C) / 99.3 (F) Weight: 169 lbs 12/14/2016 Blood Pressure 1: 130/72 Code: 8480-6 BMI: 29.5 Code: 77531-6 Heart Rate 1: 100 bpm Height: 5'4" SpO2: 95% Weight: 172 lbs 12/05/2016 Blood Pressure 1: 136/78 Code: 8480-6 BMI: 29.2 Code: 82920-2 Heart Rate 1: 117 bpm Height: 5'4" SpO2: 97% Weight: 170 lbs 09/23/2016 Blood Pressure 1: 130/74 Code: 8480-6 BMI: 30.2 Code: 09253-0 Heart Rate 1: 102 bpm Height: 5'4" SpO2: 94% Weight: 176 lbs 09/14/2016 Blood Pressure 1: 128/74 Code: 8480-6 BMI: 29.4 Code: 42572-2 Heart Rate 1: 90 bpm Height: 5'4" SpO2: 97% Weight: 171 lbs 07/08/2016 Blood Pressure 1: 118/64 Code: 8480-6 BMI: 28.8 Code: 94570-6 Heart Rate 1: 115 bpm Height: 5'4" SpO2: 97% Weight: 168 lbs 06/17/2016 Blood Pressure 1: 144/86 Code: 8480-6 BMI: 29.5 Code: 51890-4 Heart Rate 1: 94 bpm Height: 5'4" SpO2: 96% Weight: 172 lbs Functional Status No Functional Status data History of Present Illness Symptom Name Status Result Effective Date Notes sinus congestion Location frontal sinuses 12/01/2017 None [...] Date EST. PATIENT, LEVEL IV Diagnosis: Other acute sinusitis[ICD10: J01.80] Diagnosis: Other allergic rhinitis[ICD10: J30.89] Diagnosis: Moderate persistent asthma with (acute) exacerbation[ICD10: J45.41] Leisa Keys MD, [facility] CPT-4: 19563 12/01/2017 13553 EST. PATIENT, LEVEL IV Diagnosis: Moderate persistent asthma with (acute) exacerbation[ICD10: J45.41] Diagnosis: Other allergic rhinitis[ICD10: J30.89] Diagnosis: Gastro-esophageal reflux disease without esophagitis[ICD10: K21.9] [facility] CPT-4: 09947 10/10/2017 99359 EST. PATIENT, LEVEL III Diagnosis: Moderate persistent asthma with (acute) exacerbation[ICD10: J45.41] Diagnosis: Other allergic rhinitis[ICD10: J30.89] Diagnosis: Mixed hyperlipidemia[ICD10: E78.2] Leisa Keys MD, [facility] CPT-4: 68742 09/20/2017 49128 EST. PATIENT, LEVEL IV Diagnosis: Acute laryngopharyngitis[ICD10: J06.0] Diagnosis: Other acute sinusitis[ICD10: J01.80] Diagnosis: Other allergic rhinitis[ICD10: J30.89] Leisa Keys MD, [facility] CPT- 4: 75748 09/12/2017 58283 EST. PATIENT, LEVEL IV Diagnosis: Diverticulitis of large intestine without perforation or abscess with bleeding[ICD10: K57.33] Leisa Keys MD [facility] CPT-4: 78101 08/18/2017 24965 EST. PATIENT, LEVEL IV Diagnosis: Other allergic rhinitis[ICD10: J30.89] Diagnosis: Moderate persistent asthma with (acute) exacerbation[ICD10: J45.41] Leisa Keys MD, [facility] CPT-4: 58816 06/12/2017 19024 EST. PATIENT, LEVEL IV Diagnosis: Diverticulitis of large intestine without perforation or abscess with bleeding[ICD10: K57.33] Leisa Keys MD, [facility] CPT-4: 50532 05/04/2017 53682 EST. PATIENT, LEVEL IV Diagnosis: Other allergic rhinitis[ICD10: J30.89] Diagnosis: Moderate persistent asthma with (acute) exacerbation[ICD10: J45.41] Leisa Keys MD [facility] CPT-4: 90832 04/21/2017 62893 EST. PATIENT, LEVEL III Diagnosis: Moderate persistent asthma with (acute) exacerbation[ICD10: J45.41] Leisa Keys MD [facility] CPT-4: 15417 03/03/2017 04966 EST. PATIENT, LEVEL IV Diagnosis: Moderate persistent asthma, uncomplicated[ICD10: J45.40] Diagnosis: Other mucopurulent conjunctivitis, left eye[ICD10: H10.022] Diagnosis: Acute laryngopharyngitis[ICD10: J06.0] Leisa Keys MD, [facility] CPT- 4: 03979 02/13/2017 87744 EST. PATIENT, LEVEL IV Diagnosis: Acute laryngopharyngitis[ICD10: J06.0] Diagnosis: Other acute sinusitis[ICD10: J01.80] Diagnosis: Other allergic rhinitis[ICD10: J30.89] Leisa Keys MD, [facility] CPT- 4: 99435 02/09/2017 34308 EST. PATIENT, LEVEL III Diagnosis: Other allergic rhinitis[ICD10: J30.89] Diagnosis: Moderate persistent asthma, uncomplicated[ICD10: J45.40] Leisa Keys MD, [facility] CPT-4: 05525 12/14/2016 69141 EST. PATIENT, LEVEL III Diagnosis: Other acute sinusitis[ICD10: J01.80] Diagnosis: Other allergic rhinitis[ICD10: J30.89] Diagnosis: Moderate persistent asthma, uncomplicated[ICD10: J45.40] Diagnosis: Gastro-esophageal reflux disease without esophagitis[ICD10: K21.9] Leisa Keys MD, [facility] CPT-4: 37200 12/05/2016 82537 EST. PATIENT, LEVEL IV Diagnosis: Other allergic rhinitis[ICD10: J30.89] Diagnosis: Moderate persistent asthma, uncomplicated[ICD10: J45.40] Diagnosis: Cough[ICD10: R05] Leisa Keys MD, [facility] CPT-4: 47420 09/23/2016 63611 EST. PATIENT, LEVEL IV Diagnosis: Moderate persistent asthma, uncomplicated[ICD10: J45.40] Diagnosis: Other allergic rhinitis[ICD10: J30.89] Leisa Keys MD, [facility] CPT- 4: 16429 09/14/2016 42271 EST. PATIENT, LEVEL IV Diagnosis: Other acute sinusitis[ICD10: J01.80] Leisa Keys MD, [facility] CPT- 4: 19987 07/08/2016 (39241) PREV VISIT NEW AGE 40-64 Diagnosis: Encounter for gynecological examination (general) (routine) without abnormal findings[ICD10: Z01.419] Diagnosis: Moderate persistent asthma, uncomplicated[ICD10: J45.40] Diagnosis: Essential (primary) hypertension[ICD10: I10] Diagnosis: Mixed hyperlipidemia[ICD10: E78.2] Leisa Keys MD, [facility] CPT-4: 57708 06/17/2016 Plan of Care Planned Activity Notes [...] is stable, monitor for acute changes. 12/01/2017 Patient Education: Patient Medication Summary Completed [...] improving. 10/10/2017 Appointment: Leisa Kirkpatrick WPtel: [phone] [facility] (15 min) Moderate 10/10/2017 Patient Education: Patient Medication Summary Completed 10/10/2017 Appointment: Leisa Kirkpatrick WPtel: [phone] [facility] (15 min) Moderate 10/06/2017 Visit [...] medications. 09/20/2017 [phone] ([facility]) Moderate 09/20/2017 Patient Education: [...] spray. 09/12/2017 Appointment: [phone] [facility] (15 min) Moderate 09/12/2017 Patient Education: Patient Medication Summary Completed 09/12/2017 Patient Education: Obesity Completed 09/12/2017 Visit Plan: Diverticulitis - rx for antibiotic sent to pt's pharmacy - pt advised to avoid seeds, nuts, popcorn, or any other food which has been proven to upset the pt's stomach. 08/18/2017 Appointment: [phone] (30 min) Complex 08/18/2017 Patient Education: [...] spray. 06/12/2017 Appointment: Leisa Kirkpatrick WPtel: [phone] [facility] (10 min) Simple 06/12/2017 Patient Education: Patient Medication Summary Completed 06/12/2017 Visit Plan: Diverticulitis - rx for antibiotic sent to pt's pharmacy - pt advised to avoid seeds, nuts, popcorn, or any other food which has been proven to upset the pt's stomach. 05/04/2017 Appointment: Leisa Kirkpatrick WPtel: [phone] [facility] (30 min) Complex 05/04/2017 Patient Education: [...] allergy spray. 04/21/2017 Appointment: [phone] [facility] (15 min) Moderate 04/21/2017 Patient Education: [...] changes. 03/03/2017 Appointment: [phone] [facility] (30 min) Complex 03/03/2017 Patient Education: [...] daily. 02/13/2017 Appointment: [facility] Kirkpatrick [facility] [phone] [facility] [place] (10 min) Simple 02/13/2017 Patient Education: [...] allergy spray. 02/09/2017 Appointment: Leisa Kirkpatrick WPtel: [address] [place] [address] (15 min) Moderate 02/09/2017 Patient Education: Patient [...] allergy spray. 12/14/2016 Appointment: Leisa Kirkpatrick WPtel: [facility] (15 min) Moderate 12/14/2016 Patient [...] improving. 12/05/2016 Appointment: [facility] Kirkpatrick [phone] [facility] (30 min) Complex 12/05/2016 Patient Education: [...] changes. 09/23/2016 Appointment: Lisseth Greene [facility]el[phone] [facility] [place] (30 min) Complex 09/23/2016 Patient [...] improvement. Allerg ies/asthma - pt sees an data management specialist who recently started her on Qvar and dexilant. They are referring her to pulmonology (Dr. Mcconnell) - pt is to notify clinic with any questions or concerns. 07/08/2016 Appointment: Lisseth Greene WPtel: [facility] [place] (15 min) Moderate 07/08/2016 Patient Education: [...] to medications. 06/17/2016 Appointment: Lisseth Greene WPtel: [phone] New Patient 06/17/2016 Patient Education: Patient [...] is stable, monitor for acute changes. . Well Adult Female - exam completed. [...] into affected eye four times daily. . Diverticulitis - rx for antibiotic sent [...] show improvement. Allergies/asthma - pt sees an data management specialist who recently started her on Qvar [...]
--- OUTSIDE RECORDS SUMMARY | 2019-03-30 10:48 | XMS REPORT | CCD ---
Author Author Leisa Kirkpatrick MD, [facility] Address [address] [place] [address] Phone Care Team Providers [employer] Paraprofessional Name Role Phone PP Unavailable CCM Unavailable Summary Purpose Interface Exchange Insurance Providers Payer name Policy type / Coverage type Covered green party ID Effective Begin Date Effective End Date [facility] [id number] 2015 Unknown Family history Father Diagnosis Age At Onset Heart Attack Unknown genetic disease Unknown Skin cancer Unknown Hypertension Unknown Mother Diagnosis Age At Onset Stroke Unknown Daughter Diagnosis Age At Onset Asthma Unknown Arthritis Unknown Social History Social History Element Codes Description Effective Dates Marital status Unknown Lev 10/10/2017 Number of children Unknown 2 06/17/[address]: 695015953 Never smoker 06/17/2016 Alcohol history Unknown occasionally [...] mL (0.083 %) solution for nebulization RxNorm: 093327 3 Milliliter(s) INH Q4-6H 12/06/2017 No Stop Date Active Zithromax Z-Maykel 250 mg tablet RxNorm: 110991 1 Tablet(s) PO UD 12/01/2017 No Stop Date Active prednisone 20 mg tablet RxNorm: 815747 Tablet(s) PO 40mg x 2 days, then 20mg x 2 days, then 10mg x 2 days 12/01/2017 No Stop Date Active levocetirizine 5 mg tablet RxNorm: 570060 1 Tablet(s) PO daily 11/13/2017 05/11/2018 Active Protonix 20 mg tablet,delayed release RxNorm: 511003 1 Tablet(s) PO BID 11/13/2017 05/11/2018 Active Protonix 20 mg tablet,delayed release RxNorm: 173825 1 Tablet(s) PO BID 10/10/2017 11/08/2017 Inactive Tessalon Perles 100 mg capsule RxNorm: 449323 1-2 Capsule(s) PO TID as needed 10/10/2017 10/14/2017 Inactive prednisone 20 mg tablet RxNorm: 734752 Tablet(s) PO 40mg x 2 days, then 20mg x 2 days, then 10mg x 2 days 09/20/2017 11/30/2017 Inactive doxycycline hyclate 100 mg capsule RxNorm: 4977028 1 Capsule(s) PO BID 09/20/2017 09/26/2017 Inactive Zithromax Z-Maykel 250 mg tablet RxNorm: 482947 1 Tablet(s) PO UD 09/12/2017 10/09/2017 Inactive albuterol sulfate 2.5 mg/3 mL (0.083 %) solution for nebulization RxNorm: 545461 3 Milliliter(s) INH Q4-6H 09/12/2017 12/05/2017 Inactive prednisone 20 mg tablet RxNorm: 049757 2 Tablet(s) PO daily 09/12/2017 09/16/2017 Inactive lisinopril 10 mg tablet RxNorm: 527553 1 Tablet(s) PO daily 08/28/2017 02/23/2018 Active Zantac 150 mg tablet RxNorm: 648873 1 Tablet(s) PO BID 08/28/2017 08/22/2018 Active Cipro 500 mg tablet RxNorm: 061995 1 Tablet(s) PO BID 08/18/2017 08/27/2017 Inactive metronidazole 500 mg tablet RxNorm: 697373 1 Tablet(s) PO TID 08/18/2017 08/27/2017 Inactive prednisone 20 mg tablet RxNorm: 120849 2 Tablet(s) PO BID 06/12/2017 06/16/2017 Inactive Cipro 500 mg tablet RxNorm: 625739 1 Tablet(s) PO BID 05/04/2017 05/13/2017 Inactive metronidazole 500 mg tablet RxNorm: 434119 1 Tablet(s) PO TID 05/04/2017 05/13/2017 Inactive Zantac 150 mg tablet RxNorm: 593816 1 Tablet(s) PO BID 04/27/2017 08/24/2017 Inactive prednisone 20 mg tablet RxNorm: 962852 2 Tablet(s) PO BID start if getting worse 04/21/2017 04/25/2017 Inactive levocetirizine 5 mg tablet RxNorm: 572752 1 Tablet(s) PO daily 04/21/2017 05/20/2017 Inactive prednisone 20 mg tablet RxNorm: 520783 1 Tablet(s) PO BID Start with 1 pill daily and see how effective it is - if still not effective increase to twice a day as discussed 03/03/2017 03/07/2017 Inactive lisinopril 10 mg tablet RxNorm: 059979 1 Tablet(s) PO daily 03/01/2017 08/27/2017 Inactive ciprofloxacin 0.3 % eye drops RxNorm: 625765 2 Drop(s) OPH QID 02/13/2017 02/17/2017 Inactive Zithromax 250 mg tablet RxNorm: 132788 1 Tablet(s) PO daily 02/13/2017 02/15/2017 Inactive Zithromax Z-Maykel 250 mg tablet RxNorm: 683452 1 Tablet(s) PO UD 02/09/2017 02/08/2017 Inactive Zithromax Z-Maykel 250 mg tablet RxNorm: 947961 1 Tablet(s) PO UD 02/09/2017 09/11/2017 Inactive Premarin 0.625 mg/gram vaginal cream RxNorm: 224890 1 Application VAG BIW 12/30/2016 No Stop Date Active Zantac 150 mg tablet RxNorm: 382090 1 Tablet(s) PO BID 12/05/2016 04/03/2017 Inactive prednisone 20 mg tablet RxNorm: 056547 2 Tablet(s) PO daily 12/05/2016 12/09/2016 Inactive Zithromax Z-Maykel 250 mg tablet RxNorm: 835702 Tablet(s) PO UD 12/05/2016 02/08/2017 Inactive lisinopril 10 mg tablet RxNorm: 596677 1 Tablet(s) PO daily 10/31/2016 02/27/2017 Inactive Tessalon Perles 100 mg capsule RxNorm: 946836 2 Capsule(s) PO TID as needed dyspnea 09/23/2016 09/27/2016 Inactive prednisone 20 mg tablet RxNorm: 908651 2 Tablet(s) PO daily 09/23/2016 09/27/2016 Inactive Qvar 80 mcg/actuation Metered Aerosol oral inhaler RxNorm: 189306 1 INH BID started by her manufacturing specialist 08/02/2016 09/12/2016 Inactive Zithromax Z-Maykel 250 mg tablet RxNorm: 090212 Tablet(s) PO UD 07/08/2016 12/04/2016 Inactive Tessalon Perles 100 mg capsule RxNorm: 733914 2 Capsule(s) PO TID as needed dyspnea 07/08/2016 07/12/2016 Inactive prednisone 20 mg tablet RxNorm: 521076 1 Tablet(s) PO UD 07/08/2016 09/22/2016 Inactive Premarin 0.625 mg/gram vaginal cream RxNorm: 249367 1 Application VAG BIW 06/21/2016 12/29/2016 Inactive Dulera 200 mcg-5 mcg/actuation HFA aerosol inhaler RxNorm: 8339521 2 INH Q2H 06/17/2016 No Stop Date Active lisinopril 10 mg tablet RxNorm: 889228 1 Tablet(s) PO daily 06/17/2016 10/14/2016 Inactive olopatadine 0.1 % eye drops RxNorm: 7187679 Drop(s) OPH PRN No Start Date Active ProAir HFA 90 mcg/actuation aerosol inhaler RxNorm: 740142 2 Puff(s) INH PRN No Start Date Active Zyrtec 10 mg capsule RxNorm: 6505564 1 Capsule(s) PO daily No Start Date Active lutein 20 mg capsule RxNorm: 756441 1 Capsule(s) PO daily No Start Date Active Souris Oil 1,000 mg capsule RxNorm: 1 Capsule(s) PO daily No Start Date Active montelukast 10 mg tablet RxNorm: 548108 1 Tablet(s) PO daily No Start Date Active Vitamin D3 1,000 unit capsule RxNorm: 977524 Capsule(s) PO No Start Date Active B12 sublingual RxNorm: 67557 sublingual No Start Date Active pravastatin 20 mg tablet RxNorm: 088742 1 Tablet(s) PO daily No Start Date Active zinc picolinate 50 mg tablet RxNorm: 1 Tablet(s) PO daily No Start Date Active chromium picolinate 200 mcg capsule RxNorm: 623870 1 Capsule(s) PO daily No Start Date Active magnesium RxNorm: 1 PO BID No Start Date Active premarin 0.5% Vaginal cream RxNorm: 1 VAG daily No Start Date Active Xolair 150 mg subcutaneous solution RxNorm: 9899439 1 SQ monthly No Start Date Active folate #7-pc dha-pe iwi-UEGL-qywniw-IF-multivitamin #46 oral RxNorm: oral No Start Date Active prednisone RxNorm: 8640 miscellaneous No Start Date Active Dulera 200 mcg-5 mcg/actuation HFA aerosol inhaler RxNorm: 4971273 2 INH Q4H No Start Date 06/16/2016 Inactive lisinopril 10 mg tablet RxNorm: 165822 1 Tablet(s) PO daily No Start Date [...] Code Result Date C RAP A SC [id number] Strep A TNP:Lab Request 02/09/2017 C RAP A SC [id number] IC OK? TNP:Lab Request 02/09/2017 Review of [...] 1: 124/74 Code: 8480-6 BMI: 29.9 Code: 30742-3 Heart Rate 1: 110 bpm Height: 5'4" SpO2: 97% Temperature: 37.4 (C) / 99.4 (F) Weight: 174 lbs 10/10/2017 Blood Pressure 1: 128/80 Code: 8480-6 BMI: 29.8 Code: 77969-1 Heart Rate 1: 91 bpm Height: 5'4" SpO2: 98% Temperature: 36.5 (C) / 97.7 (F) Weight: 173 lbs 8 oz 09/20/2017 Blood Pressure 1: 152/88 Code: 8480-6 BMI: 29.9 Code: 17726-1 Heart Rate 1: 87 bpm Height: 5'4" SpO2: 96% Weight: 174 lbs 09/12/2017 Blood Pressure 1: 134/74 Code: 8480-6 BMI: 29.9 Code: 60140-6 Heart Rate 1: 90 bpm Height: 5'4" SpO2: 96% Weight: 174 lbs 08/18/2017 Blood Pressure 1: 128/68 Code: 8480-6 Heart Rate 1: 88 bpm Height: SpO2: 97% Weight: 06/12/2017 Blood Pressure 1: 130/70 Code: 8480-6 BMI: 29.2 Code: 46108-9 Heart Rate 1: 94 bpm Height: 5'4" SpO2: 95% Weight: 170 lbs 05/04/2017 Blood Pressure 1: 138/80 Code: 8480-6 BMI: 29.9 Code: 44841-9 Heart Rate 1: 84 bpm Height: 5'4" SpO2: 97% Weight: 174 lbs 04/21/2017 Blood Pressure 1: 130/72 Code: 8480-6 BMI: 29.9 Code: 99505-3 Heart Rate 1: 90 bpm Height: 5'4" SpO2: 96% Weight: 174 lbs 03/03/2017 Blood Pressure 1: 136/78 Code: 8480-6 BMI: 29.9 Code: 33665-4 Heart Rate 1: 91 bpm Height: 5'4" SpO2: 96% Weight: 174 lbs 02/13/2017 Blood Pressure 1: 116/74 Code: 8480-6 BMI: 29.2 Code: 04757-2 Heart Rate 1: 91 bpm Height: 5'4" SpO2: 94% Weight: 170 lbs 02/09/2017 Blood Pressure 1: 120/72 Code: 8480-6 BMI: 29.0 Code: 30268-1 Heart Rate 1: 100 bpm Height: 5'4" SpO2: 97% Temperature: 37.4 (C) / 99.3 (F) Weight: 169 lbs 12/14/2016 Blood Pressure 1: 130/72 Code: 8480-6 BMI: 29.5 Code: 38904-8 Heart Rate 1: 100 bpm Height: 5'4" SpO2: 95% Weight: 172 lbs 12/05/2016 Blood Pressure 1: 136/78 Code: 8480-6 BMI: 29.2 Code: 83929-1 Heart Rate 1: 117 bpm Height: 5'4" SpO2: 97% Weight: 170 lbs 09/23/2016 Blood Pressure 1: 130/74 Code: 8480-6 BMI: 30.2 Code: 66914-5 Heart Rate 1: 102 bpm Height: 5'4" SpO2: 94% Weight: 176 lbs 09/14/2016 Blood Pressure 1: 128/74 Code: 8480-6 BMI: 29.4 Code: 86517-4 Heart Rate 1: 90 bpm Height: 5'4" SpO2: 97% Weight: 171 lbs 07/08/2016 Blood Pressure 1: 118/64 Code: 8480-6 BMI: 28.8 Code: 00468-2 Heart Rate 1: 115 bpm Height: 5'4" SpO2: 97% Weight: 168 lbs 06/17/2016 Blood Pressure 1: 144/86 Code: 8480-6 BMI: 29.5 Code: 62292-9 Heart Rate 1: 94 bpm Height: 5'4" [...] data Encounters Encounter Performer Location Codes Date 61385 EST. PATIENT, LEVEL IV Diagnosis: Other acute sinusitis[ICD10: J01.80] Diagnosis: Other allergic rhinitis[ICD10: J30.89] Diagnosis: Moderate persistent asthma with (acute) exacerbation[ICD10: J45.41] Leisa Keys MD, [facility] CPT-4: 93219 12/01/2017 23981 EST. PATIENT, LEVEL IV Diagnosis: Moderate persistent asthma with (acute) exacerbation[ICD10: J45.41] Diagnosis: Other allergic rhinitis[ICD10: J30.89] Diagnosis: Gastro-esophageal reflux disease without esophagitis[ICD10: K21.9] Leisa Keys MD, [facility] CPT-4: 13722 10/10/2017 99021 EST. PATIENT, LEVEL III Diagnosis: Moderate persistent asthma with (acute) exacerbation[ICD10: J45.41] Diagnosis: Other allergic rhinitis[ICD10: J30.89] Diagnosis: Mixed hyperlipidemia[ICD10: E78.2] Leisa Keys MD, [facility] CPT-4: 24855 09/20/2017 06594 EST. PATIENT, LEVEL IV Diagnosis: Acute laryngopharyngitis[ICD10: J06.0] Diagnosis: Other acute sinusitis[ICD10: J01.80] Diagnosis: Other allergic rhinitis[ICD10: J30.89] Leisa Keys MD, [facility] CPT- 4: 81211 09/12/2017 98804 EST. PATIENT, LEVEL IV Diagnosis: Diverticulitis of large intestine without perforation or abscess with bleeding[ICD10: K57.33] Leisa Keys MD, [facility] CPT-4: 31999 08/18/2017 76195 EST. PATIENT, LEVEL IV Diagnosis: Other allergic rhinitis[ICD10: J30.89] Diagnosis: Moderate persistent asthma with (acute) exacerbation[ICD10: J45.41] Leisa Keys MD, [facility] CPT-4: 14656 06/12/2017 14959 EST. PATIENT, LEVEL IV Diagnosis: Diverticulitis of large intestine without perforation or abscess with bleeding[ICD10: K57.33] Leisa Keys MD, [facility] CPT-4: 08290 05/04/2017 04918 EST. PATIENT, LEVEL IV Diagnosis: Other allergic rhinitis[ICD10: J30.89] Diagnosis: Moderate persistent asthma with (acute) exacerbation[ICD10: J45.41] Leisa Keys MD, [facility] CPT-4: 18797 04/21/2017 29756 EST. PATIENT, LEVEL III Diagnosis: Moderate persistent asthma with (acute) exacerbation[ICD10: J45.41] Leisa Keys MD, [facility] CPT-4: 66513 03/03/2017 71004 EST. PATIENT, LEVEL IV Diagnosis: Moderate persistent asthma, uncomplicated[ICD10: J45.40] Diagnosis: Other mucopurulent conjunctivitis, left eye[ICD10: H10.022] Diagnosis: Acute laryngopharyngitis[ICD10: J06.0] Leisa Keys MD, [facility] CPT- 4: 23101 02/13/2017 00236 EST. PATIENT, LEVEL IV Diagnosis: Acute laryngopharyngitis[ICD10: J06.0] Diagnosis: Other acute sinusitis[ICD10: J01.80] Diagnosis: Other allergic rhinitis[ICD10: J30.89] Leisa Keys MD, [facility] CPT- 4: 89035 02/09/2017 32929 EST. PATIENT, LEVEL III Diagnosis: Other allergic rhinitis[ICD10: J30.89] Diagnosis: Moderate persistent asthma, uncomplicated[ICD10: J45.40] Leisa Keys MD, [facility] CPT-4: 62411 12/14/2016 44690 EST. PATIENT, LEVEL III Diagnosis: Other acute sinusitis[ICD10: J01.80] Diagnosis: Other allergic rhinitis[ICD10: J30.89] Diagnosis: Moderate persistent asthma, uncomplicated[ICD10: J45.40] Diagnosis: Gastro-esophageal reflux disease without esophagitis[ICD10: K21.9] Leisa Keys MD, [facility] CPT-4: 45114 12/05/2016 43663 EST. PATIENT, LEVEL IV Diagnosis: Other allergic rhinitis[ICD10: J30.89] Diagnosis: Moderate persistent asthma, uncomplicated[ICD10: J45.40] Diagnosis: Cough[ICD10: R05] Leisa Keys MD, [facility] CPT-4: 01820 09/23/2016 99753 EST. PATIENT, LEVEL IV Diagnosis: Moderate persistent asthma, uncomplicated[ICD10: J45.40] Diagnosis: Other allergic rhinitis[ICD10: J30.89] Leisa Keys MD, [facility] CPT- 4: 61510 09/14/2016 08702 EST. PATIENT, LEVEL IV Diagnosis: Other acute sinusitis[ICD10: J01.80] Leisa Keys MD, [facility] CPT- 4: 30279 07/08/2016 (81972) PREV VISIT NEW AGE 40-64 Diagnosis: Encounter for gynecological examination (general) (routine) without abnormal findings[ICD10: Z01.419] Diagnosis: Moderate persistent asthma, uncomplicated[ICD10: J45.40] Diagnosis: Essential (primary) hypertension[ICD10: I10] Diagnosis: Mixed hyperlipidemia[ICD10: E78.2] [facility] CPT-4: 27072 06/17/2016 Plan of Care Planned Activity Notes [...] acute changes. 12/01/2017 Appointment: Leisa Kirkpatrick WPtel: [address] [place], [place] [id number] (15 min) Moderate 12/01/2017 Patient Education: Patient [...] not improving. 10/10/2017 Appointment: Leisa Kirkpatrick WPtel: [facility] [place] [facility] [place] [facility] (15 min) Moderate 10/10/2017 Patient Education: Patient Medication Summary Completed 10/10/2017 [facility] [phone] [facility] ([facility]) Moderate 10/06/2017 Visit Plan: [...] medications. 09/20/2017 [facility] [phone] [facility] ([facility] min) Moderate 09/20/2017 Patient Education: Patient [...] allergy spray. 09/12/2017 App[facility]: [facility] [phone] [facility] [place] (15 min) Moderate 09/12/2017 Patient Education: Patient Medication Summary Completed 09/12/2017 Patient Education: Obesity Completed 09/12/2017 Visit Plan: Diverticulitis - rx for antibiotic sent to pt's pharmacy - pt advised to avoid seeds, nuts, popcorn, or any other food which has been proven to upset the pt's stomach. 08/18/2017 App[facility]ment[facility] [phone] [facility] (30 min) Complex 08/18/2017 Patient [...] spray. 06/12/2017 App[facility] [phone] [facility] (10 min) Simple 06/12/2017 Patient Education: Patient Medication Summary Completed 06/12/2017 Visit Plan: Diverticulitis - rx for antibiotic sent to pt's pharmacy - pt advised to avoid seeds, nuts, popcorn, or any other food which has been proven to upset the pt's stomach. 05/04/2017 [facility]ment[facility] [phone] [facility] ([facility] min) Complex 05/04/2017 Patient Education: [...] spray. 04/21/2017 App[facility] [phone] [facility] (15 min) Moderate 04/21/2017 Patient [...] changes. 03/03/2017 App[facility]ment: [facility] [phone] [facility] (30 min) Complex 03/03/2017 Patient [...] times daily. 02/13/2017 App[facility]ment: [facility] [phone] [facility] (10 min) Simple 02/13/2017 Patient [...] allergy spray. 02/09/2017 Appointment: Leisa Kirkpatrick WPtel: [facility] [place] [facility] [place] [facility] (15 min) Moderate 02/09/2017 Patient [...] spray. 12/14/2016 App[facility] [phone] [facility] ([facility] min) Moderate 12/14/2016 Patient Education: [...] not improving. 12/05/2016 Appointment: Leisa Kirkpatrick WPtel: [address] [place], [place] [address] (30 min) [facility] 12/05/2016 Patient Education: Patient Medication Summary [...] acute changes. 09/23/2016 Appointment: Lisseth Greene WPtel: [phone] [phone] (30 min) Complex 09/23/2016 Patient [...] improvement. Allerg ies/asthma - pt sees an manufacturing specialist who recently started her on Qvar and dexilant. They are referring her to pulmonology (Dr. Mcconnell) - pt is to notify clinic with any questions or concerns. 07/08/2016 Appointment: Lisseth Greene WPtel: [phone] [phone] (15 min) Moderate 07/08/2016 Patient Education: [...] medications. 06/17/2016 App[facility]ment: [facility] [phone] [phone] New Patient 06/17/2016 Patient Education: [...]
--- OUTSIDE RECORDS SUMMARY | 2019-03-30 10:49 | XMS REPORT | CCD ---
Author Author Leisa Kirkpatrick MD, [facility] Address [address] [place] [address] Phone Care Team Providers Care Oil Tester Name Role Phone PP Unavailable CCM Unavailable Summary Purpose Interface Exchange Insurance Providers Payer name Policy type / Coverage type Covered green party ID Effective Begin Date Effective End Date [facility] [id number] 2015 Unknown Family history Father Diagnosis Age At Onset Heart Attack Unknown genetic disease Unknown Skin cancer Unknown Hypertension Unknown Mother Diagnosis Age At Onset Stroke Unknown Daughter Diagnosis Age At Onset Asthma Unknown Arthritis Unknown Social History Social History Element Codes Description Effective Dates Marital status Unknown Lev 10/10/2017 Number of children Unknown 2 06/17/[address]: 082728277 Never smoker 06/17/2016 Alcohol history Unknown occasionally drinks alcohol 06/17/2016 Allergies, Adverse Reactions, Alerts Allergies, Adverse Reactions, Alerts data not found Past Medical History Illness Codes Condition Status Onset Date Resolved Date Gastro-esophageal reflux disease without esophagitis ICD-9: 530.81 ICD-10: K21.9 Active 12/05/2016 Unknown Mixed hyperlipidemia ICD- 9: 272.4 ICD-10: E78.2 Active 06/16/2016 Unknown Moderate persistent asthma with (acute) exacerbation ICD-9: 493.12 ICD-10: J45.41 Active 03/03/2017 Unknown Other allergic rhinitis ICD-9: 477.8 ICD-10: J30.89 Active 09/22/2016 Unknown Hyperlipidemia Unknown Active 09/20/2017 Unknown Acute laryngopharyngitis ICD-9: 465.0 ICD-10: J06.0 Active 02/09/2017 Unknown Other acute sinusitis ICD- 9: 461.8 ICD-10: J01.80 Active 07/07/2016 Unknown Diverticulitis of large intestine without perforation [...] Problems Condition Codes Effective Dates Condition Status Gastro-esophageal reflux disease without esophagitis ICD-9: 530.81 ICD-10: K21.9 12/05/2016 Active Mixed hyperlipidemia ICD- 9: 272.4 ICD-10: E78.2 06/16/2016 Active Moderate persistent asthma with (acute) exacerbation ICD-9: 493.12 ICD-10: J45.41 03/03/2017 Active Other allergic rhinitis ICD-9: 477.8 ICD-10: J30.89 09/22/2016 Active Hyperlipidemia Unknown 09/20/2017 Active Acute laryngopharyngitis ICD-9: 465.0 ICD-10: J06.0 02/09/2017 Active Other acute sinusitis ICD- 9: 461.8 ICD-10: J01.80 07/07/2016 Active Diverticulitis of large intestine without perforation [...] Start Date Stop Date Status Fill Instructions levocetirizine 5 mg tablet RxNorm: 382421 1 Tablet(s) PO daily 11/13/2017 05/11/2018 Active Protonix 20 mg tablet,delayed release RxNorm: 511687 1 Tablet(s) PO BID 11/13/2017 05/11/2018 Active Protonix 20 mg tablet,delayed release RxNorm: 291900 1 Tablet(s) PO BID 10/10/2017 11/08/2017 Inactive Tessalon Perles 100 mg capsule RxNorm: 753064 1-2 Capsule(s) PO TID as needed 10/10/2017 10/14/2017 Inactive prednisone 20 mg tablet RxNorm: 803998 Tablet(s) PO 40mg x 2 days, then 20mg x 2 days, then 10mg x 2 days 09/20/2017 No Stop Date Active doxycycline hyclate 100 mg capsule RxNorm: 7495478 1 Capsule(s) PO BID 09/20/2017 09/26/2017 Inactive albuterol sulfate 2.5 mg/3 mL (0.083 %) solution for nebulization RxNorm: 131446 3 Milliliter(s) INH Q4-6H 09/12/2017 No Stop Date Active Zithromax Z-Maykel 250 mg tablet RxNorm: 728031 1 Tablet(s) PO UD 09/12/2017 10/09/2017 Inactive prednisone 20 mg tablet RxNorm: 271982 2 Tablet(s) PO daily 09/12/2017 09/16/2017 Inactive lisinopril 10 mg tablet RxNorm: 991060 1 Tablet(s) PO daily 08/28/2017 02/23/2018 Active Zantac 150 mg tablet RxNorm: 029622 1 Tablet(s) PO BID 08/28/2017 08/22/2018 Active Cipro 500 mg tablet RxNorm: 611312 1 Tablet(s) PO BID 08/18/2017 08/27/2017 Inactive metronidazole 500 mg tablet RxNorm: 768968 1 Tablet(s) PO TID 08/18/2017 08/27/2017 Inactive prednisone 20 mg tablet RxNorm: 563106 2 Tablet(s) PO BID 06/12/2017 06/16/2017 Inactive Cipro 500 mg tablet RxNorm: 554476 1 Tablet(s) PO BID 05/04/2017 05/13/2017 Inactive metronidazole 500 mg tablet RxNorm: 335614 1 Tablet(s) PO TID 05/04/2017 05/13/2017 Inactive Zantac 150 mg tablet RxNorm: 992727 1 Tablet(s) PO BID 04/27/2017 08/24/2017 Inactive prednisone 20 mg tablet RxNorm: 886287 2 Tablet(s) PO BID start if getting worse 04/21/2017 04/25/2017 Inactive levocetirizine 5 mg tablet RxNorm: 018788 1 Tablet(s) PO daily 04/21/2017 05/20/2017 Inactive prednisone 20 mg tablet RxNorm: 869219 1 Tablet(s) PO BID Start with 1 pill daily and see how effective it is - if still not effective increase to twice a day as discussed 03/03/2017 03/07/2017 Inactive lisinopril 10 mg tablet RxNorm: 912658 1 Tablet(s) PO daily 03/01/2017 08/27/2017 Inactive ciprofloxacin 0.3 % eye drops RxNorm: 197885 2 Drop(s) OPH QID 02/13/2017 02/17/2017 Inactive Zithromax 250 mg tablet RxNorm: 358299 1 Tablet(s) PO daily 02/13/2017 02/15/2017 Inactive Zithromax Z-Maykel 250 mg tablet RxNorm: 608494 1 Tablet(s) PO UD 02/09/2017 02/08/2017 Inactive Zithromax Z-Maykel 250 mg tablet RxNorm: 069550 1 Tablet(s) PO UD 02/09/2017 09/11/2017 Inactive Premarin 0.625 mg/gram vaginal cream RxNorm: 055709 1 Application VAG BIW 12/30/2016 No Stop Date Active Zantac 150 mg tablet RxNorm: 158875 1 Tablet(s) PO BID 12/05/2016 04/03/2017 Inactive prednisone 20 mg tablet RxNorm: 010495 2 Tablet(s) PO daily 12/05/2016 12/09/2016 Inactive Zithromax Z-Maykel 250 mg tablet RxNorm: 176290 Tablet(s) PO UD 12/05/2016 02/08/2017 Inactive lisinopril 10 mg tablet RxNorm: 519604 1 Tablet(s) PO daily 10/31/2016 02/27/2017 Inactive Tessalon Perles 100 mg capsule RxNorm: 407588 2 Capsule(s) PO TID as needed dyspnea 09/23/2016 09/27/2016 Inactive prednisone 20 mg tablet RxNorm: 245060 2 Tablet(s) PO daily 09/23/2016 09/27/2016 Inactive Qvar 80 mcg/actuation Metered Aerosol oral inhaler RxNorm: 748850 1 INH BID started by her global mobility specialist 08/02/2016 09/12/2016 Inactive Zithromax Z-Maykel 250 mg tablet RxNorm: 630226 Tablet(s) PO UD 07/08/2016 12/04/2016 Inactive Tessalon Perles 100 mg capsule RxNorm: 770023 2 Capsule(s) PO TID as needed dyspnea 07/08/2016 07/12/2016 Inactive prednisone 20 mg tablet RxNorm: 299209 1 Tablet(s) PO UD 07/08/2016 09/22/2016 Inactive Premarin 0.625 mg/gram vaginal cream RxNorm: 743596 1 Application VAG BIW 06/21/2016 12/29/2016 Inactive Dulera 200 mcg-5 mcg/actuation HFA aerosol inhaler RxNorm: 3416842 2 INH Q2H 06/17/2016 No Stop Date Active lisinopril 10 mg tablet RxNorm: 225313 1 Tablet(s) PO daily 06/17/2016 10/14/2016 Inactive olopatadine 0.1 % eye drops RxNorm: 5637423 Drop(s) OPH PRN No Start Date Active ProAir HFA 90 mcg/actuation aerosol inhaler RxNorm: 122644 2 Puff(s) INH PRN No Start Date Active Zyrtec 10 mg capsule RxNorm: 5138182 1 Capsule(s) PO daily No Start Date Active lutein 20 mg capsule RxNorm: 379605 1 Capsule(s) PO daily No Start Date Active [place] Oil 1,000 mg capsule RxNorm: 1 Capsule(s) PO daily No Start Date Active montelukast 10 mg tablet RxNorm: 238441 1 Tablet(s) PO daily No Start Date Active Vitamin D3 1,000 unit capsule RxNorm: 288130 Capsule(s) PO No Start Date Active B12 sublingual RxNorm: 09631 sublingual No Start Date Active pravastatin 20 mg tablet RxNorm: 815311 1 Tablet(s) PO daily No Start Date Active zinc picolinate 50 mg tablet RxNorm: 1 Tablet(s) PO daily No Start Date Active chromium picolinate 200 mcg capsule RxNorm: 835386 1 Capsule(s) PO daily No Start Date Active magnesium RxNorm: 1 PO BID No Start Date Active premarin 0.5% Vaginal cream RxNorm: 1 VAG daily No Start Date Active Xolair 150 mg subcutaneous solution RxNorm: 3902042 1 SQ monthly No Start Date Active folate #7-pc dha-pe [id number]-multivitamin #46 oral RxNorm: oral No Start Date Active prednisone RxNorm: 8640 miscellaneous No Start Date Active Dulera 200 mcg-5 mcg/actuation HFA aerosol inhaler RxNorm: 4456691 2 INH Q4H No Start Date 06/16/2016 Inactive lisinopril 10 mg tablet RxNorm: 891646 1 Tablet(s) PO daily No Start Date 06/16/2016 Inactive Medication Administered No Medication Administered data Immunizations No Immunization data Assessments Condition Codes Effective Dates Gastro-esophageal reflux disease without esophagitis ICD-10: K21.9 ICD-9: 530.81 10/10/2017 Moderate persistent asthma with (acute) exacerbation ICD-10: J45.41 ICD-9: 493.12 10/10/2017 Other allergic rhinitis ICD-10: J30.89 ICD-9: 477.8 10/10/2017 Mixed hyperlipidemia ICD-10: E78.2 ICD-9: 272.4 09/20/2017 Other acute sinusitis ICD-10: J01.80 ICD-9: 461.8 09/12/2017 Acute laryngopharyngitis ICD-10: J06.0 ICD-9: 465.0 09/12/2017 [...] Reason For Visit Effective Dates Notes cough 10/10/2017 chest congestion 09/20/2017 cough 09/12/2017 abdominal pain 08/18/2017 cough 06/12/2017 abdominal pain 05/04/2017 cough 04/21/2017 cough 03/03/2017 cough 02/13/2017 sinus congestion 02/09/2017 cough 12/14/2016 sinus congestion 12/05/2016 cough 09/23/2016 nasal allergies 09/14/2016 sinus congestion 07/08/2016 well woman exam (40-65 years) 06/17/2016 Results Observation Observation Code Item Item Code Result Date C RAP A SC 2174508 Strep A TNP:Lab Request 02/09/2017 C RAP A SC 2117620 IC OK? TNP:Lab Request 02/09/2017 Review of Systems System Result Effective Dates Constitutional recent illness 10/10/2017 Constitutional No chills [...] clear 06/12/2017 None Full Exam - General 1995 Ears/Nose/Throat lips/teeth/gingiva Overall: benign lips 06/12/2017 None [...] No Procedures data Vital Signs Date Vital 10/10/2017 Blood Pressure 1: 128/80 Code: 8480-6 BMI: 29.8 Code: 52622-5 Heart Rate 1: 91 bpm Height: 5'4" SpO2: 98% Temperature: 36.5 (C) / 97.7 (F) Weight: 173 lbs 8 oz 09/20/2017 Blood Pressure 1: 152/88 Code: 8480-6 BMI: 29.9 Code: 28996-8 Heart Rate 1: 87 bpm Height: 5'4" SpO2: 96% Weight: 174 lbs 09/12/2017 Blood Pressure 1: 134/74 Code: 8480-6 BMI: 29.9 Code: 23555-3 Heart Rate 1: 90 bpm Height: 5'4" SpO2: 96% Weight: 174 lbs 08/18/2017 Blood Pressure 1: 128/68 Code: 8480-6 Heart Rate 1: 88 bpm Height: SpO2: 97% Weight: 06/12/2017 Blood Pressure 1: 130/70 Code: 8480-6 BMI: 29.2 Code: 10971-7 Heart Rate 1: 94 bpm Height: 5'4" SpO2: 95% Weight: 170 lbs 05/04/2017 Blood Pressure 1: 138/80 Code: 8480-6 BMI: 29.9 Code: 18482-1 Heart Rate 1: 84 bpm Height: 5'4" SpO2: 97% Weight: 174 lbs 04/21/2017 Blood Pressure 1: 130/72 Code: 8480-6 BMI: 29.9 Code: 60158-0 Heart Rate 1: 90 bpm Height: 5'4" SpO2: 96% Weight: 174 lbs 03/03/2017 Blood Pressure 1: 136/78 Code: 8480-6 BMI: 29.9 Code: 35838-5 Heart Rate 1: 91 bpm Height: 5'4" SpO2: 96% Weight: 174 lbs 02/13/2017 Blood Pressure 1: 116/74 Code: 8480-6 BMI: 29.2 Code: 60613-0 Heart Rate 1: 91 bpm Height: 5'4" SpO2: 94% Weight: 170 lbs 02/09/2017 Blood Pressure 1: 120/72 Code: 8480-6 BMI: 29.0 Code: 34531-5 Heart Rate 1: 100 bpm Height: 5'4" SpO2: 97% Temperature: 37.4 (C) / 99.3 (F) Weight: 169 lbs 12/14/2016 Blood Pressure 1: 130/72 Code: 8480-6 BMI: 29.5 Code: 74519-2 Heart Rate 1: 100 bpm Height: 5'4" SpO2: 95% Weight: 172 lbs 12/05/2016 Blood Pressure 1: 136/78 Code: 8480-6 BMI: 29.2 Code: 30034-9 Heart Rate 1: 117 bpm Height: 5'4" SpO2: 97% Weight: 170 lbs 09/23/2016 Blood Pressure 1: 130/74 Code: 8480-6 BMI: 30.2 Code: 03814-8 Heart Rate 1: 102 bpm Height: 5'4" SpO2: 94% Weight: 176 lbs 09/14/2016 Blood Pressure 1: 128/74 Code: 8480-6 BMI: 29.4 Code: 09869-0 Heart Rate 1: 90 bpm Height: 5'4" SpO2: 97% Weight: 171 lbs 07/08/2016 Blood Pressure 1: 118/64 Code: 8480-6 BMI: 28.8 Code: 12034-8 Heart Rate 1: 115 bpm Height: 5'4" SpO2: 97% Weight: 168 lbs 06/17/2016 Blood Pressure 1: 144/86 Code: 8480-6 BMI: 29.5 Code: 86218-4 Heart Rate 1: 94 bpm Height: 5'4" SpO2: 96% Weight: 172 lbs Functional Status No Functional Status data History of Present Illness Symptom Name Status Result Effective Date Notes cough Quality intermittent 10/10/2017 None cough Quality [...] Codes Date EST. PATIENT, LEVEL IV Diagnosis: Moderate persistent asthma with (acute) exacerbation[ICD10: J45.41] Diagnosis: Other allergic rhinitis[ICD10: J30.89] Diagnosis: Gastro-esophageal reflux disease without esophagitis[ICD10: K21.9] Leisa Keys MD, [facility] CPT-4: 87764 10/10/2017 58775 EST. PATIENT, LEVEL III Diagnosis: Moderate persistent asthma with (acute) exacerbation[ICD10: J45.41] Diagnosis: Other allergic rhinitis[ICD10: J30.89] Diagnosis: Mixed hyperlipidemia[ICD10: E78.2] Leisa Keys MD, [facility] CPT-4: 76436 09/20/2017 31181 EST. PATIENT, LEVEL IV Diagnosis: Acute laryngopharyngitis[ICD10: J06.0] Diagnosis: Other acute sinusitis[ICD10: J01.80] Diagnosis: Other allergic rhinitis[ICD10: J30.89] Leisa Keys MD, [facility] CPT- 4: 49638 09/12/2017 07280 EST. PATIENT, LEVEL IV Diagnosis: Diverticulitis of large intestine without perforation or abscess with bleeding[ICD10: K57.33] Lesia Keys MD, [facility] CPT-4: 19301 08/18/2017 82796 EST. PATIENT, LEVEL IV Diagnosis: Other allergic rhinitis[ICD10: J30.89] Diagnosis: Moderate persistent asthma with (acute) exacerbation[ICD10: J45.41] Leisa Keys MD, [facility] CPT-4: 20408 06/12/2017 95064 EST. PATIENT, LEVEL IV Diagnosis: Diverticulitis of large intestine without perforation or abscess with bleeding[ICD10: K57.33] Leisa Keys MD, [facility] CPT-4: 47103 05/04/2017 75720 EST. PATIENT, LEVEL IV Diagnosis: Other allergic rhinitis[ICD10: J30.89] Diagnosis: Moderate persistent asthma with (acute) exacerbation[ICD10: J45.41] Leisa Keys MD, [facility] CPT-4: 38984 04/21/2017 86458 EST. PATIENT, LEVEL III Diagnosis: Moderate persistent asthma with (acute) exacerbation[ICD10: J45.41] Leisa Keys MD, [facility] CPT-4: 71706 03/03/2017 46947 EST. PATIENT, LEVEL IV Diagnosis: Moderate persistent asthma, uncomplicated[ICD10: J45.40] Diagnosis: Other mucopurulent conjunctivitis, left eye[ICD10: H10.022] Diagnosis: Acute laryngopharyngitis[ICD10: J06.0] Leisa Keys MD, [facility] CPT- 4: 46035 02/13/2017 14736 EST. PATIENT, LEVEL IV Diagnosis: Acute laryngopharyngitis[ICD10: J06.0] Diagnosis: Other acute sinusitis[ICD10: J01.80] Diagnosis: Other allergic rhinitis[ICD10: J30.89] Leisa Keys MD, [facility] CPT- 4: 17511 02/09/2017 08110 EST. PATIENT, LEVEL III Diagnosis: Other allergic rhinitis[ICD10: J30.89] Diagnosis: Moderate persistent asthma, uncomplicated[ICD10: J45.40] Leisa Keys MD, [facility] CPT-4: 79162 12/14/2016 84175 EST. PATIENT, LEVEL III Diagnosis: Other acute sinusitis[ICD10: J01.80] Diagnosis: Other allergic rhinitis[ICD10: J30.89] Diagnosis: Moderate persistent asthma, uncomplicated[ICD10: J45.40] Diagnosis: Gastro-esophageal reflux disease without esophagitis[ICD10: K21.9] Leisa Keys MD, [facility] CPT-4: 72598 12/05/2016 71094 EST. PATIENT, LEVEL IV Diagnosis: Other allergic rhinitis[ICD10: J30.89] Diagnosis: Moderate persistent asthma, uncomplicated[ICD10: J45.40] Diagnosis: Cough[ICD10: R05] Leisa Keys MD, [facility] CPT-4: 28263 09/23/2016 07500 EST. PATIENT, LEVEL IV Diagnosis: Moderate persistent asthma, uncomplicated[ICD10: J45.40] Diagnosis: Other allergic rhinitis[ICD10: J30.89] Leisa Keys MD, [facility] CPT- 4: 52359 09/14/2016 61169 EST. PATIENT, LEVEL IV Diagnosis: Other acute sinusitis[ICD10: J01.80] Leisa Keys MD, [facility] CPT- 4: 64005 07/08/2016 (96939) PREV VISIT NEW AGE 40-64 Diagnosis: Encounter for gynecological examination (general) (routine) without abnormal findings[ICD10: Z01.419] Diagnosis: Moderate persistent asthma, uncomplicated[ICD10: J45.40] Diagnosis: Essential (primary) hypertension[ICD10: I10] Diagnosis: Mixed hyperlipidemia[ICD10: E78.2] Leisa Keys MD, [facility] CPT-4: 22579 06/17/2016 Plan of Care Planned Activity Notes [...] not improving. 10/10/2017 Appointment: Leisa Kirkpatrick WPtel: [facility] (15 min) Moderate 10/10/2017 Patient Education: Patient Medication Summary Completed 10/10/2017 Appointment: Leisa Kirkpatrick WPtel: [phone] [facility] (15 min) Moderate 10/06/2017 Visit Plan: [...] medications. 09/20/2017 Appointment: Leisa Kirkpatrick WPtel: [phone] [facility] (15 min) Moderate 09/20/2017 Patient Education: [...] spray. 09/12/2017 Appointment: Leisa Kirkpatrick WPtel: [phone] [facility] (15 min) Moderate 09/12/2017 Patient Education: Patient Medication Summary Completed 09/12/2017 Patient Education: Obesity Completed 09/12/2017 Visit Plan: Diverticulitis - rx for antibiotic sent to pt's pharmacy - pt advised to avoid seeds, nuts, popcorn, or any other food which has been proven to upset the pt's stomach. 08/18/2017 [phone] (30 min) Complex 08/18/2017 Patient Education: Patient [...] spray. 06/12/2017 Appointment: [phone] [facility] (10 min) Simple 06/12/2017 Patient Education: Patient Medication Summary Completed 06/12/2017 Visit Plan: Diverticulitis - rx for antibiotic sent to pt's pharmacy - pt advised to avoid seeds, nuts, popcorn, or any other food which has been proven to upset the pt's stomach. 05/04/2017 Appointment: [facility]patrick [facility] [phone] [facility] (30 min) Complex 05/04/2017 Patient Education: Patient [...] spray. 04/21/2017 Appointment: [facility]el[facility] [phone] [facility] (15 min) Moderate 04/21/2017 Patient Education: Patient [...] changes. 03/03/2017 Appointment: [facility] [phone] [facility] (30 min) Complex 03/03/2017 Patient Education: Patient [...] daily. 02/13/2017 Appointment: [facility]patrick [facility]el[facility] [phone] [facility] (10 min) Simple 02/13/2017 Patient Education: Patient [...] spray. 02/09/2017 Appointment: [facility]el[facility] [phone] [facility] (15 min) Moderate 02/09/2017 Patient Education: Patient [...] spray. 12/14/2016 Appointment: [facility]patrick [facility]el[facility] [phone] [facility] (15 min) Moderate 12/14/2016 Patient Education: Patient [...] improving. 12/05/2016 Appointment: Leisa Kirkpatrick WPtel: [phone] [facility] (30 min) Complex 12/05/2016 Patient Education: [...] changes. 09/23/2016 Appointment: Lisseth Greene WPtel: [phone] [phone] (30 min) Complex 09/23/2016 Patient Education: Patient [...] improvement. Allerg ies/asthma - pt sees an global mobility specialist who recently started her on Qvar and dexilant. They are referring her to pulmonology (Dr. Mcconnell) - pt is to notify clinic with any questions or concerns. 07/08/2016 Appointment: [facility]iss[facility] Greene [facility]Ptel[facility] [phone] [phone] (15 min) Moderate 07/08/2016 Patient Education: Patient [...] to medications. 06/17/2016 Appointment: Lisseth Greene WPtel: [address] [place], [place] [phone] New Patient 06/17/2016 Patient Education: Patient Medication [...] show improvement. Allergies/asthma - pt sees an global mobility specialist who recently started her on Qvar [...]
--- OUTSIDE RECORDS SUMMARY | 2019-03-30 10:51 | XMS REPORT | CCD ---
Author Author Leisa Kirkpatrick MD, [facility] Address [address] [place] [address] Phone Care Team Providers Care Senior Information Developer Name Role Phone PP Unavailable CCM Unavailable Summary Purpose Interface Exchange Insurance Providers Payer name Policy type / Coverage type Covered democrat ID Effective Begin Date Effective End Date [facility] [id number] 2015 Unknown Family history Father Diagnosis Age At Onset Heart Attack Unknown genetic disease Unknown Skin cancer Unknown Hypertension Unknown Mother Diagnosis Age At Onset Stroke Unknown Daughter Diagnosis Age At Onset Asthma Unknown Arthritis Unknown Social History Social History Element Codes Description Effective Dates Marital status Unknown Lev 10/10/2017 Number of children Unknown 2 06/17/[address]: 847068972 Never smoker 06/17/2016 Alcohol history Unknown occasionally [...] Start Date Stop Date Status Fill Instructions Protonix 20 mg tablet,delayed release RxNorm: 613000 1 Tablet(s) PO BID 11/13/2017 05/11/2018 Active Protonix 20 mg tablet,delayed release RxNorm: 483578 1 Tablet(s) PO BID 10/10/2017 11/08/2017 Inactive Tessalon Perles 100 mg capsule RxNorm: 606849 1-2 Capsule(s) PO TID as needed 10/10/2017 10/14/2017 Inactive prednisone 20 mg tablet RxNorm: 162194 Tablet(s) PO 40mg x 2 days, then 20mg x 2 days, then 10mg x 2 days 09/20/2017 No Stop Date Active doxycycline hyclate 100 mg capsule RxNorm: 1813894 1 Capsule(s) PO BID 09/20/2017 09/26/2017 Inactive albuterol sulfate 2.5 mg/3 mL (0.083 %) solution for nebulization RxNorm: 871579 3 Milliliter(s) INH Q4-6H 09/12/2017 No Stop Date Active Zithromax Z-Maykel 250 mg tablet RxNorm: 665166 1 Tablet(s) PO UD 09/12/2017 10/09/2017 Inactive prednisone 20 mg tablet RxNorm: 569753 2 Tablet(s) PO daily 09/12/2017 09/16/2017 Inactive lisinopril 10 mg tablet RxNorm: 438340 1 Tablet(s) PO daily 08/28/2017 02/23/2018 Active Zantac 150 mg tablet RxNorm: 789658 1 Tablet(s) PO BID 08/28/2017 08/22/2018 Active Cipro 500 mg tablet RxNorm: 353394 1 Tablet(s) PO BID 08/18/2017 08/27/2017 Inactive metronidazole 500 mg tablet RxNorm: 052169 1 Tablet(s) PO TID 08/18/2017 08/27/2017 Inactive prednisone 20 mg tablet RxNorm: 062390 2 Tablet(s) PO BID 06/12/2017 06/16/2017 Inactive Cipro 500 mg tablet RxNorm: 009280 1 Tablet(s) PO BID 05/04/2017 05/13/2017 Inactive metronidazole 500 mg tablet RxNorm: 859392 1 Tablet(s) PO TID 05/04/2017 05/13/2017 Inactive Zantac 150 mg tablet RxNorm: 747733 1 Tablet(s) PO BID 04/27/2017 08/24/2017 Inactive prednisone 20 mg tablet RxNorm: 949360 2 Tablet(s) PO BID start if getting worse 04/21/2017 04/25/2017 Inactive levocetirizine 5 mg tablet RxNorm: 115767 1 Tablet(s) PO daily 04/21/2017 05/20/2017 Inactive prednisone 20 mg tablet RxNorm: 997175 1 Tablet(s) PO BID Start with 1 pill daily and see how effective it is - if still not effective increase to twice a day as discussed 03/03/2017 03/07/2017 Inactive lisinopril 10 mg tablet RxNorm: 108779 1 Tablet(s) PO daily 03/01/2017 08/27/2017 Inactive ciprofloxacin 0.3 % eye drops RxNorm: 071687 2 Drop(s) OPH QID 02/13/2017 02/17/2017 Inactive Zithromax 250 mg tablet RxNorm: 124766 1 Tablet(s) PO daily 02/13/2017 02/15/2017 Inactive Zithromax Z-Maykel 250 mg tablet RxNorm: 126549 1 Tablet(s) PO UD 02/09/2017 02/08/2017 Inactive Zithromax Z-Maykel 250 mg tablet RxNorm: 809860 1 Tablet(s) PO UD 02/09/2017 09/11/2017 Inactive Premarin 0.625 mg/gram vaginal cream RxNorm: 147929 1 Application VAG BIW 12/30/2016 No Stop Date Active Zantac 150 mg tablet RxNorm: 122355 1 Tablet(s) PO BID 12/05/2016 04/03/2017 Inactive prednisone 20 mg tablet RxNorm: 012915 2 Tablet(s) PO daily 12/05/2016 12/09/2016 Inactive Zithromax Z-Maykel 250 mg tablet RxNorm: 334067 Tablet(s) PO UD 12/05/2016 02/08/2017 Inactive lisinopril 10 mg tablet RxNorm: 110240 1 Tablet(s) PO daily 10/31/2016 02/27/2017 Inactive Tessalon Perles 100 mg capsule RxNorm: 250706 2 Capsule(s) PO TID as needed dyspnea 09/23/2016 09/27/2016 Inactive prednisone 20 mg tablet RxNorm: 807935 2 Tablet(s) PO daily 09/23/2016 09/27/2016 Inactive Qvar 80 mcg/actuation Metered Aerosol oral inhaler RxNorm: 336205 1 INH BID started by her methods specialist 08/02/2016 09/12/2016 Inactive Zithromax Z-Maykel 250 mg tablet RxNorm: 200586 Tablet(s) PO UD 07/08/2016 12/04/2016 Inactive Tessalon Perles 100 mg capsule RxNorm: 241367 2 Capsule(s) PO TID as needed dyspnea 07/08/2016 07/12/2016 Inactive prednisone 20 mg tablet RxNorm: 397762 1 Tablet(s) PO UD 07/08/2016 09/22/2016 Inactive Premarin 0.625 mg/gram vaginal cream RxNorm: 216859 1 Application VAG BIW 06/21/2016 12/29/2016 Inactive Dulera 200 mcg-5 mcg/actuation HFA aerosol inhaler RxNorm: 7050891 2 INH Q2H 06/17/2016 No Stop Date Active lisinopril 10 mg tablet RxNorm: 562097 1 Tablet(s) PO daily 06/17/2016 10/14/2016 Inactive olopatadine 0.1 % eye drops RxNorm: 9368484 Drop(s) OPH PRN No Start Date Active ProAir HFA 90 mcg/actuation aerosol inhaler RxNorm: 484221 2 Puff(s) INH PRN No Start Date Active Zyrtec 10 mg capsule RxNorm: 5378731 1 Capsule(s) PO daily No Start Date Active lutein 20 mg capsule RxNorm: 562387 1 Capsule(s) PO daily No Start Date Active [place] Oil 1,000 mg capsule RxNorm: 1 Capsule(s) PO daily No Start Date Active montelukast 10 mg tablet RxNorm: 110359 1 Tablet(s) PO daily No Start Date Active Vitamin D3 1,000 unit capsule RxNorm: 758189 Capsule(s) PO No Start Date Active B12 sublingual RxNorm: 90954 sublingual No Start Date Active pravastatin 20 mg tablet RxNorm: 282430 1 Tablet(s) PO daily No Start Date Active zinc picolinate 50 mg tablet RxNorm: 1 Tablet(s) PO daily No Start Date Active chromium picolinate 200 mcg capsule RxNorm: 886719 1 Capsule(s) PO daily No Start Date Active magnesium RxNorm: 1 PO BID No Start Date Active premarin 0.5% Vaginal cream RxNorm: 1 VAG daily No Start Date Active Xolair 150 mg subcutaneous solution RxNorm: 7981533 1 SQ monthly No Start Date Active folate #7-pc dha-pe [id number]-multivitamin #46 oral RxNorm: oral No Start Date Active prednisone RxNorm: 8640 miscellaneous No Start Date Active Dulera 200 mcg-5 mcg/actuation HFA aerosol inhaler RxNorm: 8400602 2 INH Q4H No Start Date 06/16/2016 Inactive lisinopril 10 mg tablet RxNorm: 354758 1 Tablet(s) PO daily No Start Date 06/16/2016 Inactive Medication Administered No Medication Administered data Immunizations No Immunization data Assessments Condition Codes Effective Dates Moderate persistent asthma with (acute) exacerbation ICD-10: J45.41 ICD-9: 493.12 10/10/2017 Other allergic rhinitis ICD-10: J30.89 ICD-9: 477.8 10/10/2017 Gastro-esophageal reflux disease without esophagitis ICD-10: K21.9 [...] Code Result Date C RAP A SC [id number] Strep A TNP:Lab Request 02/09/2017 C RAP A SC [id number] IC OK? TNP:Lab Request 02/09/2017 Review of [...] 1: 128/80 Code: 8480-6 BMI: 29.8 Code: 18519-6 Heart Rate 1: 91 bpm Height: 5'4" SpO2: 98% Temperature: 36.5 (C) / 97.7 (F) Weight: 173 lbs 8 oz 09/20/2017 Blood Pressure 1: 152/88 Code: 8480-6 BMI: 29.9 Code: 70629-1 Heart Rate 1: 87 bpm Height: 5'4" SpO2: 96% Weight: 174 lbs 09/12/2017 Blood Pressure 1: 134/74 Code: 8480-6 BMI: 29.9 Code: 37716-1 Heart Rate 1: 90 bpm Height: 5'4" SpO2: 96% Weight: 174 lbs 08/18/2017 Blood Pressure 1: 128/68 Code: 8480-6 Heart Rate 1: 88 bpm Height: SpO2: 97% Weight: 06/12/2017 Blood Pressure 1: 130/70 Code: 8480-6 BMI: 29.2 Code: 28676-5 Heart Rate 1: 94 bpm Height: 5'4" SpO2: 95% Weight: 170 lbs 05/04/2017 Blood Pressure 1: 138/80 Code: 8480-6 BMI: 29.9 Code: 28704-9 Heart Rate 1: 84 bpm Height: 5'4" SpO2: 97% Weight: 174 lbs 04/21/2017 Blood Pressure 1: 130/72 Code: 8480-6 BMI: 29.9 Code: 10998-7 Heart Rate 1: 90 bpm Height: 5'4" SpO2: 96% Weight: 174 lbs 03/03/2017 Blood Pressure 1: 136/78 Code: 8480-6 BMI: 29.9 Code: 32148-0 Heart Rate 1: 91 bpm Height: 5'4" SpO2: 96% Weight: 174 lbs 02/13/2017 Blood Pressure 1: 116/74 Code: 8480-6 BMI: 29.2 Code: 25237-0 Heart Rate 1: 91 bpm Height: 5'4" SpO2: 94% Weight: 170 lbs 02/09/2017 Blood Pressure 1: 12072 Code: 8480-6 BMI: 29.0 Code: 96683-8 Heart Rate 1: 100 bpm Height: 5'4" SpO2: 97% Temperature: 37.4 (C) / 99.3 (F) Weight: 169 lbs 12/14/2016 Blood Pressure 1: 130/72 Code: 8480-6 BMI: 29.5 Code: 34439-1 Heart Rate 1: 100 bpm Height: 5'4" SpO2: 95% Weight: 172 lbs 12/05/2016 Blood Pressure 1: 136/78 Code: 8480-6 BMI: 29.2 Code: 68183-7 Heart Rate 1: 117 bpm Height: 5'4" SpO2: 97% Weight: 170 lbs 09/23/2016 Blood Pressure 1: 130/74 Code: 8480-6 BMI: 30.2 Code: 23150-3 Heart Rate 1: 102 bpm Height: 5'4" SpO2: 94% Weight: 176 lbs 09/14/2016 Blood Pressure 1: 128/74 Code: 8480-6 BMI: 29.4 Code: 90413-6 Heart Rate 1: 90 bpm Height: 5'4" SpO2: 97% Weight: 171 lbs 07/08/2016 Blood Pressure 1: 118/64 Code: 8480-6 BMI: 28.8 Code: 57912-2 Heart Rate 1: 115 bpm Height: 5'4" SpO2: 97% Weight: 168 lbs 06/17/2016 Blood Pressure 1: 144/86 Code: 8480-6 BMI: 29.5 Code: 15943-9 Heart Rate 1: 94 bpm Height: 5'4" [...] Keys MD, [facility] CPT-4: 93343 10/10/2017 63114 EST. PATIENT, LEVEL III Diagnosis: Moderate persistent asthma with (acute) exacerbation[ICD10: J45.41] Diagnosis: Other allergic rhinitis[ICD10: J30.89] Diagnosis: Mixed hyperlipidemia[ICD10: E78.2] [facility] CPT-4: 08455 09/20/2017 83455 EST. PATIENT, LEVEL IV Diagnosis: Acute laryngopharyngitis[ICD10: J06.0] Diagnosis: Other acute sinusitis[ICD10: J01.80] Diagnosis: Other allergic rhinitis[ICD10: J30.89] Leisa Keys MD, [facility] CPT- 4: 29148 09/12/2017 64907 EST. PATIENT, LEVEL IV Diagnosis: Diverticulitis of large intestine without perforation or abscess with bleeding[ICD10: K57.33] Leisa Keys MD, [facility] CPT-4: 12323 08/18/2017 07002 EST. PATIENT, LEVEL IV Diagnosis: Other allergic rhinitis[ICD10: J30.89] Diagnosis: Moderate persistent asthma with (acute) exacerbation[ICD10: J45.41] Leisa Keys MD, [facility] CPT-4: 61382 06/12/2017 31399 EST. PATIENT, LEVEL IV Diagnosis: Diverticulitis of large intestine without perforation or abscess with bleeding[ICD10: K57.33] Leisa Keys MD, [facility] CPT-4: 98181 05/04/2017 55132 EST. PATIENT, LEVEL IV Diagnosis: Other allergic rhinitis[ICD10: J30.89] Diagnosis: Moderate persistent asthma with (acute) exacerbation[ICD10: J45.41] Leisa Keys MD, [facility] CPT-4: 37411 04/21/2017 71159 EST. PATIENT, LEVEL III Diagnosis: Moderate persistent asthma with (acute) exacerbation[ICD10: J45.41] Leisa Keys MD, [facility] CPT-4: 19109 03/03/2017 61015 EST. PATIENT, LEVEL IV Diagnosis: Moderate persistent asthma, uncomplicated[ICD10: J45.40] Diagnosis: Other mucopurulent conjunctivitis, left eye[ICD10: H10.022] Diagnosis: Acute laryngopharyngitis[ICD10: J06.0] Leisa Keys MD, [facility] CPT- 4: 74454 02/13/2017 84168 EST. PATIENT, LEVEL IV Diagnosis: Acute laryngopharyngitis[ICD10: J06.0] Diagnosis: Other acute sinusitis[ICD10: J01.80] Diagnosis: Other allergic rhinitis[ICD10: J30.89] Leisa Keys MD, [facility] CPT- 4: 60363 02/09/2017 38339 EST. PATIENT, LEVEL III Diagnosis: Other allergic rhinitis[ICD10: J30.89] Diagnosis: Moderate persistent asthma, uncomplicated[ICD10: J45.40] Leisa Keys MD, [facility] CPT-4: 78361 12/14/2016 62159 EST. PATIENT, LEVEL III Diagnosis: Other acute sinusitis[ICD10: J01.80] Diagnosis: Other allergic rhinitis[ICD10: J30.89] Diagnosis: Moderate persistent asthma, uncomplicated[ICD10: J45.40] Diagnosis: Gastro-esophageal reflux disease without esophagitis[ICD10: K21.9] Leisa Keys MD, [facility] CPT-4: 65555 12/05/2016 94032 EST. PATIENT, LEVEL IV Diagnosis: Other allergic rhinitis[ICD10: J30.89] Diagnosis: Moderate persistent asthma, uncomplicated[ICD10: J45.40] Diagnosis: Cough[ICD10: R05] Leisa Keys MD, [facility] CPT-4: 59608 09/23/2016 58964 EST. PATIENT, LEVEL IV Diagnosis: Moderate persistent asthma, uncomplicated[ICD10: J45.40] Diagnosis: Other allergic rhinitis[ICD10: J30.89] Leisa Keys MD, [facility] CPT- 4: 41367 09/14/2016 32954 EST. PATIENT, LEVEL IV Diagnosis: Other acute sinusitis[ICD10: J01.80] Leisa Keys MD, [facility] CPT- 4: 52791 07/08/2016 (56407) PREV VISIT NEW AGE 40-64 Diagnosis: Encounter for gynecological examination (general) (routine) without abnormal findings[ICD10: Z01.419] Diagnosis: Moderate persistent asthma, uncomplicated[ICD10: J45.40] Diagnosis: Essential (primary) hypertension[ICD10: I10] Diagnosis: Mixed hyperlipidemia[ICD10: E78.2] Leisa Keys MD, [facility] CPT-4: 96488 06/17/2016 Plan of Care Planned Activity Notes [...] symptoms are not improving. 10/10/2017 Appointment: Leisa Kirkpatrickl: [facility] (15 min) Moderate 10/10/2017 Patient Education: Patient Medication Summary Completed 10/10/2017 Appointment: [facility]patrickl[facility] ([facility] Moderate 10/06/2017 Visit [...] medications. 09/20/2017 [facility]ment: [facility] [phone] [facility] ([facility] min) Moderate 09/20/2017 Patient Education: [...] spray. 09/12/2017 [facility]: [facility] [phone] [facility] ([facility] min) Moderate 09/12/2017 Patient Education: Patient Medication Summary Completed 09/12/2017 Patient Education: Obesity Completed 09/12/2017 Visit Plan: Diverticulitis - rx for antibiotic sent to pt's pharmacy - pt advised to avoid seeds, nuts, popcorn, or any other food which has been proven to upset the pt's stomach. 08/18/2017 Appointment: Leisa Kirkpatrick WPtel[facility] [place] (30 min) Complex 08/18/2017 Patient Education: [...] spray. 06/12/2017 App[facility]ment: [facility] [phone] [facility] [place] (10 min) Simple 06/12/2017 Patient Education: Patient Medication Summary Completed 06/12/2017 Visit Plan: Diverticulitis - rx for antibiotic sent to pt's pharmacy - pt advised to avoid seeds, nuts, popcorn, or any other food which has been proven to upset the pt's stomach. 05/04/2017 Appointment: [facility] [phone] [facility] ([facility] min) Complex 05/04/2017 Patient [...] times daily. 02/13/2017 Appointment: Leisa Kirkpatrick WPtel: [phone] [facility] (10 min) Simple 02/13/2017 Patient Education: [...] spray. 02/09/2017 Appointment: Leisa Kirkpatrick WPtel: [phone] [facility] (15 min) Moderate 02/09/2017 Patient Education: [...] not improving. 12/05/2016 Appointment: Leisa Kirkpatrick WPtel: [address] [place], [place] [id number] (30 min) [facility] 12/05/2016 Patient Education: Patient Medication Summary [...] changes. 09/23/2016 Appointment: Lisseth Greene WPtel: [phone] (30 min) Complex 09/23/2016 Patient Education: Patient [...] improvement. Allerg ies/asthma - pt sees an methods specialist who recently started her on Qvar and dexilant. They are referring her to pulmonology (Dr. Mcconnell) - pt is to notify clinic with any questions or concerns. 07/08/2016 Appointment: Lisseth Greene WPtel: [phone] [phone] (15 min) Moderate 07/08/2016 Patient Education: [...] to medications. 06/17/2016 Appointment: Lisseth Greene WPtel: [address] [place], [place] [phone] New Patient 06/17/2016 Patient Education: Patient Medication [...] show improvement. Allergies/asthma - pt sees an methods specialist who recently started her on Qvar [...]
--- OUTSIDE RECORDS SUMMARY | 2019-03-30 10:52 | XMS REPORT | CCD ---
Author Author Leisa Kirkpatrick MD, [facility] Address [address] [place] [address] Phone Care Team Providers Care Family Medicine Physician Name Role Phone PP Unavailable CCM Unavailable Summary Purpose Interface Exchange Insurance Providers Payer name Policy type / Coverage type Covered libertarian ID Effective Begin Date Effective End Date [facility] [id number] 2015 Unknown Family history Father Diagnosis Age At Onset Heart Attack Unknown genetic disease Unknown Skin cancer Unknown Hypertension Unknown Mother Diagnosis Age At Onset Stroke Unknown Daughter Diagnosis Age At Onset Asthma Unknown Arthritis Unknown Social History Social History Element Codes Description Effective Dates Marital status Unknown Lev 10/10/2017 Number of children Unknown 2 06/17/[address]: 736129772 Never smoker 06/17/2016 Alcohol history Unknown occasionally [...] Instructions Zithromax Z-Maykel 250 mg tablet RxNorm: 524436 1 Tablet(s) PO UD 12/01/2017 No Stop Date Active prednisone 20 mg tablet RxNorm: 155280 Tablet(s) PO 40mg x 2 days, then 20mg x 2 days, then 10mg x 2 days 12/01/2017 No Stop Date Active levocetirizine 5 mg tablet RxNorm: 064889 1 Tablet(s) PO daily 11/13/2017 05/11/2018 Active Protonix 20 mg tablet,delayed release RxNorm: 576045 1 Tablet(s) PO BID 11/13/2017 05/11/2018 Active Protonix 20 mg tablet,delayed release RxNorm: 249116 1 Tablet(s) PO BID 10/10/2017 11/08/2017 Inactive Tessalon Perles 100 mg capsule RxNorm: 654477 1-2 Capsule(s) PO TID as needed 10/10/2017 10/14/2017 Inactive prednisone 20 mg tablet RxNorm: 629111 Tablet(s) PO 40mg x 2 days, then 20mg x 2 days, then 10mg x 2 days 09/20/2017 11/30/2017 Inactive doxycycline hyclate 100 mg capsule RxNorm: 2673316 1 Capsule(s) PO BID 09/20/2017 09/26/2017 Inactive albuterol sulfate 2.5 mg/3 mL (0.083 %) solution for nebulization RxNorm: 237261 3 Milliliter(s) INH Q4-6H 09/12/2017 No Stop Date Active Zithromax Z-Maykel 250 mg tablet RxNorm: 841654 1 Tablet(s) PO UD 09/12/2017 10/09/2017 Inactive prednisone 20 mg tablet RxNorm: 970935 2 Tablet(s) PO daily 09/12/2017 09/16/2017 Inactive lisinopril 10 mg tablet RxNorm: 380799 1 Tablet(s) PO daily 08/28/2017 02/23/2018 Active Zantac 150 mg tablet RxNorm: 713123 1 Tablet(s) PO BID 08/28/2017 08/22/2018 Active Cipro 500 mg tablet RxNorm: 999524 1 Tablet(s) PO BID 08/18/2017 08/27/2017 Inactive metronidazole 500 mg tablet RxNorm: 573350 1 Tablet(s) PO TID 08/18/2017 08/27/2017 Inactive prednisone 20 mg tablet RxNorm: 560624 2 Tablet(s) PO BID 06/12/2017 06/16/2017 Inactive Cipro 500 mg tablet RxNorm: 659141 1 Tablet(s) PO BID 05/04/2017 05/13/2017 Inactive metronidazole 500 mg tablet RxNorm: 036274 1 Tablet(s) PO TID 05/04/2017 05/13/2017 Inactive Zantac 150 mg tablet RxNorm: 629586 1 Tablet(s) PO BID 04/27/2017 08/24/2017 Inactive prednisone 20 mg tablet RxNorm: 089225 2 Tablet(s) PO BID start if getting worse 04/21/2017 04/25/2017 Inactive levocetirizine 5 mg tablet RxNorm: 722391 1 Tablet(s) PO daily 04/21/2017 05/20/2017 Inactive prednisone 20 mg tablet RxNorm: 717306 1 Tablet(s) PO BID Start with 1 pill daily and see how effective it is - if still not effective increase to twice a day as discussed 03/03/2017 03/07/2017 Inactive lisinopril 10 mg tablet RxNorm: 868099 1 Tablet(s) PO daily 03/01/2017 08/27/2017 Inactive ciprofloxacin 0.3 % eye drops RxNorm: 318700 2 Drop(s) OPH QID 02/13/2017 02/17/2017 Inactive Zithromax 250 mg tablet RxNorm: 741772 1 Tablet(s) PO daily 02/13/2017 02/15/2017 Inactive Zithromax Z-Maykel 250 mg tablet RxNorm: 896342 1 Tablet(s) PO UD 02/09/2017 02/08/2017 Inactive Zithromax Z-Maykel 250 mg tablet RxNorm: 886125 1 Tablet(s) PO UD 02/09/2017 09/11/2017 Inactive Premarin 0.625 mg/gram vaginal cream RxNorm: 292254 1 Application VAG BIW 12/30/2016 No Stop Date Active Zantac 150 mg tablet RxNorm: 849644 1 Tablet(s) PO BID 12/05/2016 04/03/2017 Inactive prednisone 20 mg tablet RxNorm: 278560 2 Tablet(s) PO daily 12/05/2016 12/09/2016 Inactive Zithromax Z-Maykel 250 mg tablet RxNorm: 606978 Tablet(s) PO UD 12/05/2016 02/08/2017 Inactive lisinopril 10 mg tablet RxNorm: 809612 1 Tablet(s) PO daily 10/31/2016 02/27/2017 Inactive Tessalon Perles 100 mg capsule RxNorm: 321772 2 Capsule(s) PO TID as needed dyspnea 09/23/2016 09/27/2016 Inactive prednisone 20 mg tablet RxNorm: 918200 2 Tablet(s) PO daily 09/23/2016 09/27/2016 Inactive Qvar 80 mcg/actuation Metered Aerosol oral inhaler RxNorm: 249664 1 INH BID started by her chargeback specialist 08/02/2016 09/12/2016 Inactive Zithromax Z-Maykel 250 mg tablet RxNorm: 276802 Tablet(s) PO UD 07/08/2016 12/04/2016 Inactive Tessalon Perles 100 mg capsule RxNorm: 649684 2 Capsule(s) PO TID as needed dyspnea 07/08/2016 07/12/2016 Inactive prednisone 20 mg tablet RxNorm: 719689 1 Tablet(s) PO UD 07/08/2016 09/22/2016 Inactive Premarin 0.625 mg/gram vaginal cream RxNorm: 065961 1 Application VAG BIW 06/21/2016 12/29/2016 Inactive Dulera 200 mcg-5 mcg/actuation HFA aerosol inhaler RxNorm: 8239989 2 INH Q2H 06/17/2016 No Stop Date Active lisinopril 10 mg tablet RxNorm: 558937 1 Tablet(s) PO daily 06/17/2016 10/14/2016 Inactive olopatadine 0.1 % eye drops RxNorm: 0654381 Drop(s) OPH PRN No Start Date Active ProAir HFA 90 mcg/actuation aerosol inhaler RxNorm: 782723 2 Puff(s) INH PRN No Start Date Active Zyrtec 10 mg capsule RxNorm: 1898901 1 Capsule(s) PO daily No Start Date Active lutein 20 mg capsule RxNorm: 846992 1 Capsule(s) PO daily No Start Date Active Brant Oil 1,000 mg capsule RxNorm: 1 Capsule(s) PO daily No Start Date Active montelukast 10 mg tablet RxNorm: 095593 1 Tablet(s) PO daily No Start Date Active Vitamin D3 1,000 unit capsule RxNorm: 870118 Capsule(s) PO No Start Date Active B12 sublingual RxNorm: 78283 sublingual No Start Date Active pravastatin 20 mg tablet RxNorm: 277975 1 Tablet(s) PO daily No Start Date Active zinc picolinate 50 mg tablet RxNorm: 1 Tablet(s) PO daily No Start Date Active chromium picolinate 200 mcg capsule RxNorm: 560075 1 Capsule(s) PO daily No Start Date Active magnesium RxNorm: 1 PO BID No Start Date Active premarin 0.5% Vaginal cream RxNorm: 1 VAG daily No Start Date Active Xolair 150 mg subcutaneous solution RxNorm: 6550646 1 SQ monthly No Start Date Active folate #7-pc dha-pe [id number]-IF-multivitamin #46 oral RxNorm: oral No Start Date Active prednisone RxNorm: 8640 miscellaneous No Start Date Active Dulera 200 mcg-5 mcg/actuation HFA aerosol inhaler RxNorm: 0925777 2 INH Q4H No Start Date 06/16/2016 Inactive lisinopril 10 mg tablet RxNorm: 122525 1 Tablet(s) PO daily No Start Date [...] Code Result Date C RAP A SC [id number] Strep A TNP:Lab Request 02/09/2017 C RAP A SC [id number] IC OK? TNP:Lab Request 02/09/2017 Review of [...] 1: 124/74 Code: 8480-6 BMI: 29.9 Code: 57857-5 Heart Rate 1: 110 bpm Height: 5'4" SpO2: 97% Temperature: 37.4 (C) / 99.4 (F) Weight: 174 lbs 10/10/2017 Blood Pressure 1: 128/80 Code: 8480-6 BMI: 29.8 Code: 31578-4 Heart Rate 1: 91 bpm Height: 5'4" SpO2: 98% Temperature: 36.5 (C) / 97.7 (F) Weight: 173 lbs 8 oz 09/20/2017 Blood Pressure 1: 152/88 Code: 8480-6 BMI: 29.9 Code: 50849-4 Heart Rate 1: 87 bpm Height: 5'4" SpO2: 96% Weight: 174 lbs 09/12/2017 Blood Pressure 1: 134/74 Code: 8480-6 BMI: 29.9 Code: 62147-2 Heart Rate 1: 90 bpm Height: 5'4" SpO2: 96% Weight: 174 lbs 08/18/2017 Blood Pressure 1: 128/68 Code: 8480-6 Heart Rate 1: 88 bpm Height: SpO2: 97% Weight: 06/12/2017 Blood Pressure 1: 130/70 Code: 8480-6 BMI: 29.2 Code: 61659-4 Heart Rate 1: 94 bpm Height: 5'4" SpO2: 95% Weight: 170 lbs 05/04/2017 Blood Pressure 1: 138/80 Code: 8480-6 BMI: 29.9 Code: 28620-0 Heart Rate 1: 84 bpm Height: 5'4" SpO2: 97% Weight: 174 lbs 04/21/2017 Blood Pressure 1: 130/72 Code: 8480-6 BMI: 29.9 Code: 76623-7 Heart Rate 1: 90 bpm Height: 5'4" SpO2: 96% Weight: 174 lbs 03/03/2017 Blood Pressure 1: 136/78 Code: 8480-6 BMI: 29.9 Code: 72704-7 Heart Rate 1: 91 bpm Height: 5'4" SpO2: 96% Weight: 174 lbs 02/13/2017 Blood Pressure 1: 116/74 Code: 8480-6 BMI: 29.2 Code: 06137-0 Heart Rate 1: 91 bpm Height: 5'4" SpO2: 94% Weight: 170 lbs 02/09/2017 Blood Pressure 1: 120/72 Code: 8480-6 BMI: 29.0 Code: 50949-2 Heart Rate 1: 100 bpm Height: 5'4" SpO2: 97% Temperature: 37.4 (C) / 99.3 (F) Weight: 169 lbs 12/14/2016 Blood Pressure 1: 130/72 Code: 8480-6 BMI: 29.5 Code: 64175-2 Heart Rate 1: 100 bpm Height: 5'4" SpO2: 95% Weight: 172 lbs 12/05/2016 Blood Pressure 1: 136/78 Code: 8480-6 BMI: 29.2 Code: 99593-6 Heart Rate 1: 117 bpm Height: 5'4" SpO2: 97% Weight: 170 lbs 09/23/2016 Blood Pressure 1: 130/74 Code: 8480-6 BMI: 30.2 Code: 35598-6 Heart Rate 1: 102 bpm Height: 5'4" SpO2: 94% Weight: 176 lbs 09/14/2016 Blood Pressure 1: 128/74 Code: 8480-6 BMI: 29.4 Code: 55372-2 Heart Rate 1: 90 bpm Height: 5'4" SpO2: 97% Weight: 171 lbs 07/08/2016 Blood Pressure 1: 118/64 Code: 8480-6 BMI: 28.8 Code: 68668-7 Heart Rate 1: 115 bpm Height: 5'4" SpO2: 97% Weight: 168 lbs 06/17/2016 Blood Pressure 1: 144/86 Code: 8480-6 BMI: 29.5 Code: 31997-9 Heart Rate 1: 94 bpm Height: 5'4" [...] MD, [facility] CPT-4: 99323 12/01/2017 85452 EST. PATIENT, LEVEL IV Diagnosis: Moderate persistent asthma with (acute) exacerbation[ICD10: J45.41] Diagnosis: Other allergic rhinitis[ICD10: J30.89] Diagnosis: Gastro-esophageal reflux disease without esophagitis[ICD10: K21.9] [facility] CPT-4: 76616 10/10/2017 25465 EST. PATIENT, LEVEL III Diagnosis: Moderate persistent asthma with (acute) exacerbation[ICD10: J45.41] Diagnosis: Other allergic rhinitis[ICD10: J30.89] Diagnosis: Mixed hyperlipidemia[ICD10: E78.2] Leisa Keys MD, [facility] CPT-4: 03188 09/20/2017 80975 EST. PATIENT, LEVEL IV Diagnosis: Acute laryngopharyngitis[ICD10: J06.0] Diagnosis: Other acute sinusitis[ICD10: J01.80] Diagnosis: Other allergic rhinitis[ICD10: J30.89] Leisa Keys MD, [facility] CPT- 4: 10933 09/12/2017 79903 EST. PATIENT, LEVEL IV Diagnosis: Diverticulitis of large intestine without perforation or abscess with bleeding[ICD10: K57.33] Leisa Keys MD [facility] CPT-4: 68866 08/18/2017 35237 EST. PATIENT, LEVEL IV Diagnosis: Other allergic rhinitis[ICD10: J30.89] Diagnosis: Moderate persistent asthma with (acute) exacerbation[ICD10: J45.41] Leisa Keys MD, [facility] CPT-4: 92926 06/12/2017 19777 EST. PATIENT, LEVEL IV Diagnosis: Diverticulitis of large intestine without perforation or abscess with bleeding[ICD10: K57.33] Leisa Keys MD, [facility] CPT-4: 87889 05/04/2017 58889 EST. PATIENT, LEVEL IV Diagnosis: Other allergic rhinitis[ICD10: J30.89] Diagnosis: Moderate persistent asthma with (acute) exacerbation[ICD10: J45.41] Leisa Keys MD [facility] CPT-4: 51655 04/21/2017 83029 EST. PATIENT, LEVEL III Diagnosis: Moderate persistent asthma with (acute) exacerbation[ICD10: J45.41] Leisa Keys MD [facility] CPT-4: 22530 03/03/2017 71878 EST. PATIENT, LEVEL IV Diagnosis: Moderate persistent asthma, uncomplicated[ICD10: J45.40] Diagnosis: Other mucopurulent conjunctivitis, left eye[ICD10: H10.022] Diagnosis: Acute laryngopharyngitis[ICD10: J06.0] Leisa Keys MD, [facility] CPT- 4: 43336 02/13/2017 48027 EST. PATIENT, LEVEL IV Diagnosis: Acute laryngopharyngitis[ICD10: J06.0] Diagnosis: Other acute sinusitis[ICD10: J01.80] Diagnosis: Other allergic rhinitis[ICD10: J30.89] Leisa Keys MD, [facility] CPT- 4: 60274 02/09/2017 60035 EST. PATIENT, LEVEL III Diagnosis: Other allergic rhinitis[ICD10: J30.89] Diagnosis: Moderate persistent asthma, uncomplicated[ICD10: J45.40] Leisa Keys MD, [facility] CPT-4: 16999 12/14/2016 21850 EST. PATIENT, LEVEL III Diagnosis: Other acute sinusitis[ICD10: J01.80] Diagnosis: Other allergic rhinitis[ICD10: J30.89] Diagnosis: Moderate persistent asthma, uncomplicated[ICD10: J45.40] Diagnosis: Gastro-esophageal reflux disease without esophagitis[ICD10: K21.9] Leisa Keys MD, [facility] CPT-4: 08610 12/05/2016 94925 EST. PATIENT, LEVEL IV Diagnosis: Other allergic rhinitis[ICD10: J30.89] Diagnosis: Moderate persistent asthma, uncomplicated[ICD10: J45.40] Diagnosis: Cough[ICD10: R05] Leisa Keys MD, [facility] CPT-4: 77133 09/23/2016 94750 EST. PATIENT, LEVEL IV Diagnosis: Moderate persistent asthma, uncomplicated[ICD10: J45.40] Diagnosis: Other allergic rhinitis[ICD10: J30.89] Leisa Keys MD, [facility] CPT- 4: 89034 09/14/2016 97109 EST. PATIENT, LEVEL IV Diagnosis: Other acute sinusitis[ICD10: J01.80] Leisa Keys MD, [facility] CPT- 4: 74218 07/08/2016 (48493) PREV VISIT NEW AGE 40-64 Diagnosis: Encounter for gynecological examination (general) (routine) without abnormal findings[ICD10: Z01.419] Diagnosis: Moderate persistent asthma, uncomplicated[ICD10: J45.40] Diagnosis: Essential (primary) hypertension[ICD10: I10] Diagnosis: Mixed hyperlipidemia[ICD10: E78.2] Leisa Keys MD, [facility] CPT-4: 96827 06/17/2016 Plan of Care Planned Activity Notes [...] improving. 10/10/2017 Appointment: Leisa Kirkpatrick WPtel: [phone] [facility] (15 min) Moderate 10/10/2017 Patient Education: Patient Medication Summary Completed 10/10/2017 Appointment: Leisa Kirkpatrick WPtel: [phone] [facility] (15 min) Moderate 10/06/2017 Visit Plan: [...] medications. 09/20/2017 [phone] ([facility] min) Moderate 09/20/2017 Patient Education: Patient [...] spray. 09/12/2017 Appointment: [facility] [phone] [facility] (15 min) Moderate 09/12/2017 Patient Education: Patient Medication Summary Completed 09/12/2017 Patient Education: Obesity Completed 09/12/2017 Visit Plan: Diverticulitis - rx for antibiotic sent to pt's pharmacy - pt advised to avoid seeds, nuts, popcorn, or any other food which has been proven to upset the pt's stomach. 08/18/2017 Appointment: [facility]patrick [facility] [phone] [facility] (30 min) Complex 08/18/2017 Patient Education: Patient Medication Summary Completed 08/18/2017 Visit Plan: Asthma Exacerbation - Asthma is a chronic problem for this patient, however, the pt is experiencing an acute exacerbation of the chronic Asthma symptoms. Pt is to receive appropriate treatment as an out patient, but the pt is aware that if symptoms worsen or do not improve, to call [facility] for instructions, or go to the EMERGENCY [...] spray. 06/12/2017 Appointment: Leisa Kirkpatrick WPtel: [phone] [facility] (10 min) Simple 06/12/2017 Patient Education: Patient Medication Summary Completed 06/12/2017 Visit Plan: Diverticulitis - rx for antibiotic sent to pt's pharmacy - pt advised to avoid seeds, nuts, popcorn, or any other food which has been proven to upset the pt's stomach. 05/04/2017 Appointment: Leisa Kirkpatrick WPtel: [phone] [facility] (30 min) Complex 05/04/2017 Patient Education: [...] allergy spray. 04/21/2017 Appointment: [facility] Kirkpatrick [facility] [phone] [facility] (15 min) Moderate 04/21/2017 Patient Education: [...] changes. 03/03/2017 Appointment: [facility] Kirkpatrick [facility]el[facility] [phone] [facility] (30 min) Complex 03/03/2017 Patient Education: Patient [...] daily. 02/13/2017 Appointment: [facility] Kirkpatrick [facility]el[facility] [phone] [facility] [place] (10 min) Simple 02/13/2017 Patient Education: [...] spray. 02/09/2017 Appointment: Leisa Kirkpatrick WPtel: [address] [place] [address] (15 min) Moderate 02/09/2017 Patient Education: Patient [...] allergy spray. 12/14/2016 Appointment: Leisa Kirkpatrick WPtel: [facility] (15 min) Moderate 12/14/2016 Patient Education: [...] not improving. 12/05/2016 Appointment: [facility] Kirkpatrick [facility]el[facility] [phone] [facility] (30 min) Complex 12/05/2016 Patient Education: Patient [...] acute changes. 09/23/2016 Appointment: Lisseth Greene [facility]Ptel[facility] [phone] [phone] [place] (30 min) Complex 09/23/2016 Patient Education: [...] improvement. Allerg ies/asthma - pt sees an chargeback specialist who recently started her on Qvar and dexilant. They are referring her to pulmonology (Dr. Mcconnell) - pt is to notify clinic with any questions or concerns. 07/08/2016 Appointment: Lisseth Greene WPtel: [phone] [place] (15 min) Moderate 07/08/2016 Patient Education: [...] medications. 06/17/2016 Appointment: Lisseth Greene WPtel: [phone] New Patient 06/17/2016 Patient Education: Patient [...] show improvement. Allergies/asthma - pt sees an chargeback specialist who recently started her on Qvar [...]
--- OUTSIDE RECORDS SUMMARY | 2019-03-30 10:53 | XMS REPORT | Continuity of Care Document ---
Author Organization Unknown Address Unknown Allergies Active Description Code Type Severity Reaction Onset Reported/Identified Relationship to Patient Clinical Status Yes cefaclor [id number] Drug Allergy Unknown N/A 09/23/2008 Yes clarithromycin [id number] Drug Allergy Unknown N/A 09/23/2008 Yes ofloxacin [id number] Drug Allergy Unknown N/A 09/23/2008 Yes ALL OPIATES ALL OPIATES Unknown N/V 10/22/2015 Medications There is no data. Problems Date Dx Coded Attending Type Code Diagnosis Diagnosed By 05/13/2011 Ot 401.9 HYPERTENSION NOS 05/13/2011 Ot 780.2 SYNCOPE AND COLLAPSE 07/11/2011 Ot 530.81 ESOPHAGEAL REFLUX 09/30/2015 SHAKIRA HIGH MD Ot J32.4 10/22/2015 SHAKIRA HIGH MD 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 10/22/2015 SHAKIRA HIGH MD Ot J32.2 CHRONIC ETHMOIDAL SINUSITIS 10/22/2015 SHAKIRA HIGH MD Ot J34.3 HYPERTROPHY OF NASAL TURBINATES 10/28/2015 SHAKIRA HIGH MD Ot J32.0 10/28/2015 SHAKIRA HIGH MD Ot J34.3 10/28/2015 SHAKIRA HIGH MD Ot J45.909 10/28/2015 SHAKIRA HIGH MD Ot Z01.810 10/28/2015 SHAKIRA HIGH MD Ot Z01.811 10/28/2015 SHAKIRA HIGH MD Ot Z01.812 10/28/2015 SHAKIRA HIGH MD Ot Z11.2 06/23/2016 Ot 473.0 CHR MAXILLARY SINUSITIS 06/23/2016 Ot 473.1 CHR FRONTAL SINUSITIS 06/23/2016 Ot 473.2 CHR ETHMOIDAL SINUSITIS 06/23/2016 Ot 793.80 UNSPEC ABNORMAL MAMMOGRAM 06/23/2016 Ot 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 06/23/2016 Ot 473.9 CHRONIC SINUSITIS NOS 06/23/2016 Ot 493.00 EXTRINSIC ASTHMA, NOS 06/23/2016 Ot V72.63 PRE-PROCEDURAL LABORATORY EXAMINATION 06/23/2016 Ot V72.81 [id number] CARDIOVASCULAR 06/23/2016 Ot V72.83 EXAM PRE-OPERATIVE NEC 06/23/2016 Ot V74.8 SCREEN-BACTERIAL DIS NEC 06/23/2016 Ot 473.0 CHR MAXILLARY SINUSITIS 06/23/2016 Ot 473.1 CHR FRONTAL SINUSITIS 06/23/2016 Ot 473.2 CHR ETHMOIDAL SINUSITIS 06/23/2016 Ot 473.3 CHR SPHENOIDAL SINUSITIS 06/23/2016 Ot 478.0 HYPERTRPH NASAL TURBINAT 06/23/2016 Ot 719.41 JOINT PAIN-SHLDER 06/23/2016 Ot 729.5 PAIN IN LIMB 06/23/2016 JEFFERY SCRUGGS, DAVID Sandoval Ot 786.2 COUGH 06/23/2016 DRISS SCRUGGS, ROBERT Deras Ot V76.12 OTH SCREEN MAMMO-MALIGN NEOPLASM OF NANO 06/23/2016 DRISS SCRUGGS, ROBERT Deras Ot V58.65 LONG-TERM(CURRENT)USE OF STEROIDS 06/23/2016 DRISS SCRUGGS, ROBERT Deras Ot V82.81 SCREENING FOR OSTEOPOROSIS 06/23/2016 DRISS SCRUGGS, ROBERT Deras Ot 611.72 LUMP OR MASS IN BREAST 06/23/2016 LENNOX SCRUGGS, SHAKIRA Falk Ot J32.4 CHRONIC PANSINUSITIS 06/23/2016 SHAKIRA HIGH MD 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 06/23/2016 SHAKIRA HIGH MD Ot J34.3 HYPERTROPHY OF NASAL TURBINATES 06/23/2016 SHAKIRA HIGH MD Ot J45.909 UNSPECIFIED ASTHMA, UNCOMPLICATED 06/23/2016 SHAKIRA HIGH MD Ot Z01.810 ENCOUNTER FOR PREPROCEDURAL CARDIOVASCUL 06/23/2016 SHAKIRA HIGH MD Ot Z01.811 ENCOUNTER FOR PREPROCEDURAL RESPIRATORY 06/23/2016 SHAKIRA HIGH MD Ot Z01.812 ENCOUNTER FOR PREPROCEDURAL LABORATORY E 06/23/2016 SHAKIRA HIGH MD Ot Z11.2 ENCOUNTER FOR SCREENING FOR OTHER BACTER 06/24/2016 JOSSUE CRUZ APRN Ot Z12.31 ENCNTR SCREEN MAMMOGRAM FOR MALIGNANT NE 06/24/2016 JOSSUE CRUZ APRN Ot Z12.31 ENCNTR SCREEN MAMMOGRAM FOR MALIGNANT NE 07/12/2016 JOSSUE CRUZ RECREATIONAL THERAPIST Ot Z12.31 ENCNTR SCREEN MAMMOGRAM FOR MALIGNANT NE 12/11/2017 JOSSUE CRUZ APRN Ot J22 UNSPECIFIED ACUTE LOWER RESPIRATORY INFE 12/20/2017 JOSSUE CRUZ RECREATIONAL THERAPIST Ot J22 UNSPECIFIED ACUTE LOWER RESPIRATORY INFE 05/02/2018 JEFFERY SCRUGGS, DAVID A Ot 786.2 COUGH 05/02/2018 ROBERT NAQVI MD Ot V76.12 OTH SCREEN MAMMO-MALIGN NEOPLASM OF NANO 05/02/2018 ROBERT NAQVI MD Ot V58.65 LONG-TERM(CURRENT)USE OF STEROIDS 05/02/2018 DRISS SCRUGGS, ROBERT Deras Ot V82.81 SCREENING FOR OSTEOPOROSIS 05/02/2018 DRISS SCRUGGS, ROBERT Deras Ot 611.72 LUMP OR MASS IN BREAST 05/02/2018 LENNOX SCRUGGS, SHAKIRA Falk Ot J32.4 CHRONIC PANSINUSITIS 05/02/2018 SHAKIRA HIGH MD 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 05/02/2018 LENNOX SCRUGGS, SHAKIRA Falk Ot J34.3 HYPERTROPHY OF NASAL TURBINATES 05/02/2018 LENNOX SCRUGGS, SHAKIRA Falk Ot J45.909 UNSPECIFIED ASTHMA, UNCOMPLICATED 05/02/2018 LENNOX SCRUGGS, SHAKIRA P Ot Z01.810 ENCOUNTER FOR PREPROCEDURAL CARDIOVASCUL 05/02/2018 SHAKIRA HIGH MD Ot Z01.811 ENCOUNTER FOR PREPROCEDURAL RESPIRATORY 05/02/2018 SHAKIRA HIGH MD Ot Z01.812 ENCOUNTER FOR PREPROCEDURAL LABORATORY E 05/02/2018 SHAKIRA HIGH MD Ot Z11.2 ENCOUNTER FOR SCREENING FOR OTHER BACTER 05/02/2018 JOSSUE CRUZ RECREATIONAL THERAPIST Ot Z12.31 ENCNTR SCREEN MAMMOGRAM FOR MALIGNANT NE 05/02/2018 JOSSUE CRUZ APRN Ot J22 UNSPECIFIED ACUTE LOWER RESPIRATORY INFE 05/03/2018 JOSSUE CRUZ RECREATIONAL THERAPIST Ot Z12.31 ENCNTR SCREEN MAMMOGRAM FOR MALIGNANT NE 05/08/2018 JOSSUE CRUZ RECREATIONAL THERAPIST Ot Z12.31 ENCNTR SCREEN MAMMOGRAM FOR MALIGNANT NE 05/16/2018 JOSSUE CRUZ APRN Ot Z12.31 ENCNTR SCREEN MAMMOGRAM FOR MALIGNANT NE Procedures There is no data. Results There is no data. Encounters ACCT No. Visit Date/Time Discharge Status Pt. Type Provider Facility Loc./Unit Complaint [id number] 05/02/2018 10:07:00 05/02/2018 23:59:59 CLS Outpatient JOSSUE CRUZ APRN [facility] SCREENING [id number] 12/08/2017 15:51:00 12/08/2017 23:59:59 CLS Outpatient CAROL CRUZLORELEI Murillo APRN [facility] R05 [id number] 06/23/2016 10:04:00 06/23/2016 23:59:59 CLS Outpatient CAROL CRUZLORELEI Murillo APRN [facility] SCREENING [id number] 10/22/2015 07:10:00 10/22/2015 13:20:00 DIS Outpatient SHAKIRA HIGH MD [facility] SDC PARA NASAL LEFT MAXILLARY SINUS DISEASE [id number] 10/12/2015 10:58:00 10/12/2015 23:59:59 CLS Outpatient SHAKIRA HIGH MD [facility] PREOP PARA NASAL LEFT MAXILLARY SINUS DISEASE [id number] 09/14/2015 09:12:00 09/14/2015 23:59:59 CLS Outpatient SHAKIRA HIGH MD [facility] CHRONIC PANSINUSITIS [id number] 05/20/2014 08:05:00 05/20/2014 23:59:59 CLS Outpatient ROBERT NAQVI MD [facility] RT BREAST LUMP [id number] 10/04/2013 09:47:00 10/04/2013 23:59:59 CLS Outpatient ROBERT NAQVI MD [facility] SCREENING, HX OF STEROID USE [id number] 09/12/2013 10:35:00 09/12/2013 23:59:59 CLS Outpatient ROBERT NAQVI MD [facility] SCREENING [id number] 02/22/2013 15:45:00 02/22/2013 23:59:59 CLS Outpatient DAVID GIL MD [facility] COUGH [id number] 12/16/2011 11:48:00 Document Registration [id number] 07/11/2011 08:14:00 Document Registration [id number] 05/13/2011 10:52:00 Document Registration [id number] 03/18/2011 05:40:00 Document Registration [id number] 03/14/2011 13:00:00 Document Registration [id number] 02/01/2011 14:54:00 Document Registration [id number] 01/10/2011 08:41:00 Document Registration [id number] 09/12/2017 12:12:24 09/12/2017 23:59:59 [facility] Outpatient
[2019-03-30 11:27] LABS: BASOPHILS % (AUTO) 1 % (0-10); EOSINOPHILS # (AUTO) 0.3 10^3/uL (0.0-0.3); EOSINOPHILS % (AUTO) 3 % (0-10); HEMATOCRIT 41 % (35-52); HEMOGLOBIN 13.4 G/DL (11.5-16.0); LYMPHOCYTES % (AUTO) 24 % (12-44); MEAN CORPUSCULAR HEMOGLOBIN 29 PG (25-34); MEAN CORPUSCULAR HGB CONC 33 G/DL (32-36); MEAN CORPUSCULAR VOLUME 86 FL (80-99); MEAN PLATELET VOLUME 8.9 FL (7.4-10.4); MONOCYTES # (AUTO) 0.8 X 10^3 (0.0-1.0); MONOCYTES % (AUTO) 9 % (0-12); NEUTROPHILS # (AUTO) 5.2 X 10^3 (1.8-7.8); NEUTROPHILS % (AUTO) 63 % (42-75); PLATELET COUNT 382 10^3/uL (130-400); RED CELL DISTRIBUTION WIDTH 15.4 % (10.0-14.5); WHITE BLOOD COUNT 8.2 10^3/uL (4.3-11.0)
[2019-03-30 11:53] LABS: FIBRIN DEGRADATION PRODUCTS 0.66 UG/ML (0.00-0.49); INR 0.9 (0.8-1.4); PROTHROMBIN TIME PATIENT 12.6 SEC (12.2-14.7)
--- NOTE | 2019-03-30 11:59 | ED Lower Extremity ---
General Chief Complaint: Lower Extremity Stated Complaint: L LEG PAIN Nursing Triage Note: PT STATES SHE BUMPED HER LEG SEVERAL WEEKS AGO AND HAS LEFT LOWER LEG PAIN. NO SWELLING NOTED. PULSES AND SENSATION NOTED. NO OBVIOUS SIGNS OF TRAUMA TO LEG. PT DENIES DAILY BLOOD THINNERS. Nursing Sepsis Screen: No Definite Risk Source: patient Exam Limitations: no limitations History of Present Illness Date Seen by Provider: Mar 30, 2019 Time Seen by Provider: 11:10 Initial Comments 64-year-old female who presents to emergency room with complaints of left lower leg pain behind her knee that radiates to her calf for the past 3 days. She reports that 3 weeks ago she did injure her leg just above her left ankle and had ecchymosis and swelling for a couple of days but went away and did not think anything of it. There is no swelling or obvious signs of trauma to the leg. Normal distal pulses and capillary refill. Pain/Injury Location: left leg Method of Injury: unknown Modifying Factors: Worse With Movement Allergies and Home Medications Allergies Coded Allergies: cefaclor (Verified Allergy, Unknown, 09/23/08) clarithromycin (Verified Allergy, Unknown, 09/23/08) ofloxacin (Verified Allergy, Unknown, 09/23/08) Uncoded Allergies: ALL OPIATES (Allergy, Unknown, N/V, 10/22/15) Home Medications Albuterol 8.5 Gm Hfa.aer.ad, 2 PUFF IH Q4H PRN for WHEEZING, (Reported) Amoxicillin/Potassium Clav 1 Each Tablet, 1 EACH PO BID Prescribed by: LETTY VORA on 10/22/15 1119 Butalb/Acetaminophen/Caffeine 1 Each Capsule, 1 EACH PO Q4H Prescribed by: LETTY VORA on 10/22/15 1119 Cetirizine HCl 10 Mg Tablet, 10 MG PO DAILY, (Reported) Cholecalciferol 1,000 Unit Capsule, 2,000 UNIT PO BID, (Reported) Estrogens Conjugated 45 Gm Cr, 1 GM VG HS, (Reported) 1 APPLICATORFUL Ipratropium/Albuterol Sulfate 3 Ml Ampul.neb, 3 ML IH Q4H PRN for SHORTNESS OF BREATH, (Reported) Lactobacillus Combination No.4 1 Each Capsule, 1 EACH PO DAILY, (Reported) Lisinopril 10 Mg Tablet, 10 MG PO DAILY, (Reported) Lutein 20 Mg Capsule, 20 MG PO DAILY, (Reported) Mometasone/Formoterol 13 Gm Hfa.aer.ad, 2 PUFF IH BID, (Reported) Montelukast Sodium 10 Mg Tablet, 10 MG PO HS, (Reported) Multivitamins 1 Tab Tablet, 1 TAB PO DAILY, (Reported) Pravastatin Sodium 20 Mg Tablet, 20 MG PO HS, (Reported) Prednisone 20 Mg Tab, 20 MG PO UD TAKE 2 TABLETS BY MOUTH DAILY FOR 2 DAYS, THEN TAKE 1 TABLET BY MOUTH DAILY FOR 2 DAYS Prescribed by: LETTY VORA on 10/22/15 1119 Vitamin B Complex 1 Each Tablet, 1 EACH PO HS, (Reported) Patient Home Medication List Home Medication List Reviewed: Yes Review of Systems Constitutional: see HPI; No chills, No fever Musculoskeletal: see HPI, joint pain (leg pain) All Other Systems Reviewed Negative Unless Noted: Yes Past Kciybsf-Gebrci-Rdybsf Hx Past Med/Social Hx: Reviewed Nursing Past Med/Soc Hx Patient Social History Alcohol Use: Denies Use Recreational Drug Use: No Smoking Status: Never a Smoker Type Used: Cigars 2nd Hand Smoke Exposure: No Recent Foreign Travel: No Contact w/Someone Who Travel: No Recent Infectious Disease Expo: No Recent Hopitalizations: No Physical Abuse: No Sexual Abuse: No Mistreated: No Fear: No Immunizations Up To Date Date of Influenza Vaccine: Jul 23, 2015 Seasonal Allergies Seasonal Allergies: Yes Past Medical History Surgeries: Yes (NECK FUSION, LAP VONNIE, HERNIA, SINUS SX X2, ) Respiratory: Yes Asthma Cardiac: Yes Neurological: Yes (POSSIBLE TIA) Reproductive Disorders: No Sexually Transmitted Disease: No Gastrointestinal: Yes (HERNIA REPAIRED) Gastroesophageal Reflux, Diverticulosis Musculoskeletal: Yes (SPINAL FUSION) Endocrine: No Cancer: No Psychosocial: No Integumentary: No Blood Disorders: No Family Medical History Reviewed Nursing Family Hx Physical Exam Vital Signs Vital Signs - First Documented 03/30/19 11:00 Temp 98.0 Pulse 85 Resp 18 B/P (MAP) 160/102 (121) Pulse Ox 95 O2 Delivery Room Air Capillary Refill : Less Than 3 Seconds Height, Weight, BMI Height: 5'3.00" Weight: 167lbs. 0.2oz. 75.610746yc; 29.58 BMI Method:Stated General Appearance: WD/WN, no apparent distress Cardiovascular: normal peripheral pulses, regular rate, rhythm, no edema, no gallop, no JVD, no murmur Respiratory: chest non-tender, lungs clear, normal breath sounds, no respiratory distress, no accessory muscle use Legs: left leg pain, left leg soft tissue tenderness Neurologic/Tendon: normal sensation, normal motor functions, normal tendon functions Neurologic/Psychiatric: alert, normal mood/affect, oriented x 3 Skin: normal color, warm/dry Progress/Results/Core Measures Results/Orders Lab Results Laboratory Tests Test 03/30/19 11:24 Range/Units White Blood Count 8.2 4.3-11.0 10^3/uL Red Blood Count 4.70 4.35-5.85 10^6/uL Hemoglobin 13.4 11.5-16.0 G/DL Hematocrit 41 35-52 % Mean Corpuscular Volume 86 80-99 FL Mean Corpuscular Hemoglobin 29 25-34 PG Mean Corpuscular Hemoglobin Concent 33 32-36 G/DL Red Cell Distribution Width 15.4 H 10.0-14.5 % Platelet Count 382 130-400 10^3/uL Mean Platelet Volume 8.9 7.4-10.4 FL Neutrophils (%) (Auto) 63 42-75 % Lymphocytes (%) (Auto) 24 12-44 % Monocytes (%) (Auto) 9 0-12 % Eosinophils (%) (Auto) 3 0-10 % Basophils (%) (Auto) 1 0-10 % Neutrophils # (Auto) 5.2 1.8-7.8 X 10^3 Lymphocytes # (Auto) 2.0 1.0-4.0 X 10^3 Monocytes # (Auto) 0.8 0.0-1.0 X 10^3 Eosinophils # (Auto) 0.3 0.0-0.3 10^3/uL Basophils # (Auto) 0.0 0.0-0.1 10^3/uL Prothrombin Time 12.6 12.2-14.7 SEC INR Comment 0.9 0.8-1.4 Activated Partial Thromboplast Time 24 24-35 SEC D-Dimer 0.66 H 0.00-0.49 UG/ML Sodium Level 145 135-145 MMOL/L Potassium Level 2.8 L 3.6-5.0 MMOL/L Chloride Level 105 98-107 MMOL/L Carbon Dioxide Level 27 21-32 MMOL/L Anion Gap 13 5-14 MMOL/L Blood Urea Nitrogen 9 7-18 MG/DL Creatinine 0.79 0.60-1.30 MG/DL Estimat Glomerular Filtration Rate > 60 BUN/Creatinine Ratio 11 Glucose Level 88 70-105 MG/DL Calcium Level 9.1 8.5-10.1 MG/DL Corrected Calcium 9.2 8.5-10.1 MG/DL Total Bilirubin 0.5 0.1-1.0 MG/DL Aspartate Amino Transf (AST/SGOT) 24 5-34 U/L Alanine Aminotransferase (ALT/SGPT) 19 0-55 U/L Alkaline Phosphatase 172 H 40-136 U/L Total Protein 6.3 L 6.4-8.2 GM/DL Albumin 3.9 3.2-4.5 GM/DL My Orders Orders - OTTO CASTILLO Comprehensive Metabolic Panel (03/30/19 11:12) Cbc With Automated Diff (03/30/19 11:12) Protime With Inr (03/30/19 11:12) Partial Thromboplastin Time (03/30/19 11:12) Fibrin Degradation Products (03/30/19 11:12) Us Venous Lower Ext Lt (03/30/19 11:12) Monitor-Rhythm Ecg Trace Only (03/30/19 11:12) Vital Signs/I&O 03/30/19 03/30/19 11:00 13:34 Temp 98.0 98.0 Pulse 85 85 Resp 18 18 B/P (MAP) 160/102 (121) 160/102 (121) Pulse Ox 95 95 O2 Delivery Room Air Blood Pressure Mean: 121 Departure Impression Primary Impression: Left leg pain Disposition: 01 HOME, SELF-CARE Condition: Stable/Unchanged Departure-Patient Inst. Decision time for Depature: 13:25 Referrals: MICHAEL DOZIER MD (PCP/Family) Primary Care Physician Patient Instructions: Knee Sprain (DC) Add. Discharge Instructions: Follows primary care provider within 1 week for recheck. Return back to the emergency room for worsening symptoms or concerns as needed. All discharge instructions reviewed with patient and/or family. Voiced understanding. OTTO CASTILLO Mar 30, 2019 11:59
[2019-03-30 12:00] LABS: ALANINE AMINOTRANSFERASE 19 U/L (0-55); ALBUMIN 3.9 GM/DL (3.2-4.5); ALKALINE PHOSPHATASE 172 U/L (40-136); BILIRUBIN,TOTAL 0.5 MG/DL (0.1-1.0); BUN/CREATININE RATIO 11; CALCIUM 9.1 MG/DL (8.5-10.1); CARBON DIOXIDE 27 MMOL/L (21-32); CHLORIDE 105 MMOL/L (98-107); CREATININE SERUM 0.79 MG/DL (0.60-1.30); GFR ESTIMATED > 60; GLUCOSE 88 MG/DL (70-105); POTASSIUM 2.8 MMOL/L (3.6-5.0); SODIUM 145 MMOL/L (135-145); TOTAL PROTEIN 6.3 GM/DL (6.4-8.2)
--- NOTE | 2019-03-30 12:59 | Diagnostic Imaging Report ---
EXAM: US VENOUS LOWER EXT LT INDICATION: Left lower extremity pain COMPARISON: None. TECHNIQUE: Duplex, ambrosio-scale and color-flow imaging of the left lower extremity venous system was performed FINDINGS: The left common femoral vein, superficial femoral vein, profunda femoris, and popliteal veins are normal. These vessels show normal compressibility, color flow, and doppler augmentation. The deep calf veins demonstrate no distinct intraluminal thrombus where seen. IMPRESSION: Negative venous Doppler of the left lower extremity. Dictated by: Dictated on workstation # [id number]
[2019-03-30 13:34] VITALS: BP 160/102
== END 2019-03-30 13:34 | disposition home or self-care (01) ==
LOC: EDUNIT# 09:45 → ER 09:46
DX: M79.605 Pain in left leg (principal); J45.909 Unspecified asthma, uncomplicated; K21.9 Gastro-esophageal reflux disease without esophagitis; Z87.19 Personal history of other diseases of the digestive system; Z98.890 Other specified postprocedural states; Z98.1 Arthrodesis status; Z88.1 Allergy status to other antibiotic agents; Z88.8 Allergy status to other drugs, medicaments and biological substances; Z88.5 Allergy status to narcotic agent; Z79.52 Long term (current) use of systemic steroids
CPT/HCPCS: 36415; 80053; 85025; 85379; 85610; 85730

== ENCOUNTER → 2019-07-01 | Outpatient (CLI) | payer MEDICARE ==
--- NOTE | 2019-07-01 17:17 | Diagnostic Imaging Report ---
Examination: Left Ring finger 3 views. History: Pain and swelling. Findings: No comparison available. An ossific fragment at the base of the left ring finger distal phalanx may represent heterotopic ossification or old fracture. This is well-corticated indicating indicating it is unlikely to be an acute fracture. Joint spaces are normal. Alignment is normal. Impression: 1. Heterotopic ossification or old fracture at the base of the left ring finger proximal phalanx. Dictated by: Dictated on workstation # [id number]
--- NOTE | 2019-07-01 17:37 | Diagnostic Imaging Report ---
INDICATION: Pain, swelling and bruising of the left fourth digit. FINDINGS: The alignment of the hand appears appropriate. There is a suggestion that there is some soft tissue swelling about the proximal interphalangeal joint of the left fourth digit. There are no findings of joint dislocation or radiographic findings of an acute fracture. The remainder of the hand also unremarkable. IMPRESSION: 1. No evidence of acute abnormality. There are no findings of dislocation, malalignment or acute fracture. Dictated by: Dictated on workstation # [id number]
== END ==
LOC: RAD 16:55
PROVIDERS: ATTEND Nurse Practitioner Family
DX: S60.042A Contusion of left ring finger without damage to nail, initial encounter (principal)
CPT/HCPCS: 73130; 73140

== ENCOUNTER → 2019-08-06 | Outpatient (CLI) | payer MEDICARE ==
--- NOTE | 2019-08-06 15:33 | Diagnostic Imaging Report ---
INDICATION: Postmenopausal screening for osteoporosis. COMPARISON: 10/04/2013 FINDINGS: AP Spine L1-L4: [BMD (g/cm2): 1.502] [T-Score: 2.5] [Z-Score: 3.7] [BMD Previous: 1.440] [BMD % Change: 4.3] LT Hip Neck: [BMD (g/cm2): 1.022] [T-Score: -0.1] [Z-Score: 1.1] LT Hip Total: [BMD (g/cm2):1.117] [T-Score:0.9] [Z-Score: 1.8] [BMD Previous: 1.182] [BMD % Change: -5.5] RT Hip Neck: [BMD (g/cm2):1.066] [T-Score:0.2] [Z-Score:1.4] RT Hip Total: [BMD (g/cm2):1.143] [T-score:1.1] [Z-Score:2.0] [BMD Previous:1.178] [BMD % Change:-3.0] *Indicates significant change from prior examination based on 95% confidence level. World Health Organization criteria for BMD interpretation classify patients as Normal (T-score at or above -1.0), Osteopenic (T-score between -1.0 and -2.5) or Osteoporotic (T-score at or below -2.5). LIMITATIONS AND MODIFICATION: None. FRACTURE RISK (FRAX SCORE): The ten year probability of (%): Major Osteoporotic Fracture: [N/A] Hip Fracture: [N/A] IMPRESSION: 1. Normal bone mineral density. 2. No significant change in bone mineral density since prior examination. 3. See below National Osteoporosis Foundation guidelines on when to potentially initiate pharmacologic therapy. Based on the National Osteoporosis Foundation Guidelines, pharmacologic treatment should be initiated in any of the following, unless clinical conditions suggest otherwise: * Any patient with prior fragility fracture of the hip or vertebrae. A spine fracture indicates 5X risk for subsequent spine fracture and 2X risk for subsequent hip fracture. * Osteoporosis (T-score <-2.5). * Postmenopausal women and men age 50 and older with low bone mass/osteopenia (T-score between -1.0 and -2.5) by DXA and 10-year major osteoporotic fracture greater than 20% or a 10-year probability of hip fracture greater than 3%. These fracture risks are supplied above in the FRAX score, if applicable. * Clinician judgement and/or patient preferences may indicate treatment for people with 10-year fracture probabilities above or below these levels. Dictated by: Dictated on workstation # [id number]
== END ==
LOC: RAD 13:21
PROVIDERS: ATTEND Family Medicine
DX: Z13.820 Encounter for screening for osteoporosis (principal); Z78.0 Asymptomatic menopausal state; Z79.52 Long term (current) use of systemic steroids
CPT/HCPCS: 77080

== ENCOUNTER → 2021-04-15 | Outpatient (CLI) | payer MEDICARE ==
[~2021-04-15] MED LIST changes: -CETI10TA20 PO; +CETI10TA49 PO; -LISI10TA2 PO; +LISI10TA25 PO
== END ==
LOC: LAB 09:37
PROVIDERS: ATTEND Nurse Practitioner Family
DX: R19.7 Diarrhea, unspecified (principal)
CPT/HCPCS: 87015; 87045; 87046; 87328; 87329; 87899

== ENCOUNTER 2021-07-01 05:43 | Outpatient (CLI) | payer MEDICARE ==
[~2021-07-01] VITALS: Ht 160 cm; Wt 81.4 kg
[2021-07-01] MEDS ORDERED: DORZ10DR27 OP (16:22)
[2021-07-01] MEDS ORDERED: UBID10CA5 PO (16:22)
[2021-07-01] MEDS ORDERED: PANT40SU PO (16:22)
[2021-07-01] MEDS ORDERED: BUDE10.2 IH (16:22)
[2021-07-01] MEDS ORDERED: FAMO20TA3 PO (16:22)
[2021-07-01] MEDS ORDERED: ASPI-999 PO (16:22)
[2021-07-01] MEDS ORDERED: LOSA25TA41 PO (16:22)
[2021-07-01] MEDS ORDERED: POTA10TA36 PO (16:22)
[2021-07-01] MEDS ORDERED: EPIN0.3P2 IJ (16:22)
[2021-07-01] MEDS ORDERED: EPLE25TA4 PO (16:22)
== END 2021-07-01 16:35 ==
LOC: PREOP 05:43
PROVIDERS: ATTEND Surgery
DX: Z01.818 Encounter for other preprocedural examination (principal)

== ENCOUNTER 2021-07-08 12:06 | Day surgery (SDC) | payer MEDICARE ==
[~2021-07-08] VITALS: Ht 160 cm; Wt 81.4 kg
[2021-07-08] VITALS (12 sets, daily range): BP systolic 123–162; BP diastolic 77–113
[~2021-07-08 12:06] MED LIST changes: +ASPI-999 PO; +BUDE10.2 IH; +DORZ10DR27 OP; +EPIN0.3P2 IJ; +EPLE25TA4 PO; +FAMO20TA3 PO; +LOSA25TA41 PO; +PANT40SU PO; +POTA10TA36 PO; +UBID10CA5 PO
[2021-07-08] MEDS ORDERED: RT-ALBUTEROL SULF 2.5 MG/3 ML PRE-MIX VIAL INH ONE (12:45)
[2021-07-08] MEDS ORDERED: FAMOTIDINE 20MG/2ML IV (PEPCID) IV ONE (12:45)
[2021-07-08] MEDS ORDERED: ONDANSETRON 4 MG/2 ML (SDV) Z0FRAN IV ONE (12:45)
[2021-07-08] MEDS ORDERED: SCOPOLAMINE 1.5 MG (TRANSDERM-SCOP) PATCH TOP ONE (12:45)
[2021-07-08] MEDS ORDERED: RT-ALBUTEROL SULF 2.5 MG/3 ML PRE-MIX VIAL ONE (12:50)
[2021-07-08] MEDS: LACTATED RINGERS 1,000 ML IV PRN ×2 (12:56→16:14)
[2021-07-08] MEDS ORDERED: CLINDAMYCIN 600 MG/50 ML IVPB 50 ML IV ONE ×2 (13:00→13:06)
[2021-07-08] MEDS ORDERED: SCOPOLAMINE 1.5 MG (TRANSDERM-SCOP) PATCH ONE (13:06)
[2021-07-08] MEDS ORDERED: FAMOTIDINE 20MG/2ML IV (PEPCID) ONE (13:06)
[2021-07-08] MEDS ORDERED: ONDANSETRON 4 MG/2 ML (SDV) Z0FRAN ONE ×2 (13:07→14:34)
[2021-07-08] MEDS ORDERED: LIDOCAINE/EPI 1%-1:100,000 (XYLOCAINE) 20ML ONE (13:23)
--- NOTE | 2021-07-08 13:58 | Progress Note-Pre Operative ---
Pre-Operative Progress Note H&P Reviewed The H&P was reviewed, patient examined and no changes noted. Date Seen by Provider: Jul 08, 2021 Time Seen by Provider: 13:00 Date H&P Reviewed: Jul 08, 2021 Time H&P Reviewed: 13:00 Pre-Operative Diagnosis: ventral abd incisional hernia BERTRAM SCHNEIDER MD Jul 08, 2021 13:58
[2021-07-08] MEDS ORDERED: oxyCODONE/APAP 5/325MG (PERCOCET 5) TABLET PO PRN (14:00)
[2021-07-08] MEDS ORDERED: ACETAMINOPHEN 325 MG TABLET PO PRN (14:00)
[2021-07-08] MEDS ORDERED: morphine INJ 10 MG/ML 1ML (SYR OR VIAL) IVP PRN ×2 (14:00)
[2021-07-08] MEDS ORDERED: ONDANSETRON 4 MG/2 ML (SDV) Z0FRAN IVP PRN (14:00)
[2021-07-08] MEDS ORDERED: toradol PO (14:01)
--- NOTE | 2021-07-08 14:01 | Discharge Inst-Surgical ---
D/C Lap Instructions-WYATT New, Converted, or Re-Newed RX: RX on Chart Follow Up Appt in 2 weeks Activity as tolerated No driving for 24 hours No [address] while on pain medications Incentive Spirometry use every 2 hours while awake Regular Diet Symptoms to Report: Fever over 101 degree F, Nausea/Vomiting Infection Signs and Symptoms to report: Increased redness, Foul odor of wound, Increased drainage Bathing instructions: May shower Operative Area Clean/Dry; Keep incision clean/dry If any problems/questions: Contact your physician or go to Emergency Room BERTRAM SCHNEIDER MD Jul 08, 2021 14:01
[2021-07-08] MEDS ORDERED: LIDOCAINE PF 2% 5 ML (XYLOCAINE) VIAL ONE (14:34)
[2021-07-08] MEDS ORDERED: MIDAZOLAM 2 MG/2 ML (VERSED) VIAL ONE (14:34)
[2021-07-08] MEDS ORDERED: SEVOFLURANE (ULTANE) 15 ML INHAL SOLN ONE ×2 (14:34→16:04)
[2021-07-08] MEDS ORDERED: ROCURONIUM 10 MG/ML 5 ML SYRINGE IV ONE (14:34)
[2021-07-08] MEDS ORDERED: fentaNYL INJ 100 MCG/2 ML AMP ONE (14:34)
[2021-07-08] MEDS ORDERED: proPOfol 200 MG/20 ML (DIPRIVAN) VIAL IV ONE (14:34)
[2021-07-08] MEDS ORDERED: PHENYLEPHRINE 100 MCG/ML 10 ML (ANESTHESIA) SYR ONE (15:47)
--- NOTE | 2021-07-08 16:02 | Progress Note-Post Operative ---
Post-Operative Progess Note Surgeon (s)/Electric Installer (s) Surgeon BERTRAM SCHNEIDER MD Electric Installer: yaneth silverman PURCHASE ANALYST Pre-Operative Diagnosis recurrent ventral abd incisional hernia, sx right upper chest skin lesion Post-Operative Diagnosis same Procedure & Operative Findings Date of Procedure 07/08/21 Procedure Performed/Findings open recurrent ventral abd inc hernia repair with mesh. excision skin lesion right+upper chest (1cm) Anesthesia Type get Estimated Blood Loss Estimated blood loss (mL): minimal Specimens/Packing Specimens Removed right upper skin lesion. BERTRAM SCHNEIDER MD Jul 08, 2021 16:02
[2021-07-08] MEDS ORDERED: KETOROLAC 30 MG/ML VIAL ONE (16:08)
[2021-07-08] MEDS ORDERED: fentaNYL INJ 100 MCG/2 ML AMP IVP ONE (16:15)
[2021-07-08] MEDS ORDERED: PROMETHAZINE INJ 25 MG/ML (PHENERGAN) AMP IVP ONE (16:30)
--- NOTE | 2021-07-08 18:17 | OPERATIVE REPORT ---
DATE OF SERVICE: 07/08/2021 ATTENDING PRIMARY CARE PHYSICIAN: Gaby Keys MD. PREOPERATIVE DIAGNOSES: 1. Recurrent ventral abdominal incisional hernia. 2. Symptomatic skin lesion right upper chest. POSTOPERATIVE DIAGNOSES: 1. Recurrent ventral abdominal incisional hernia. 2. Symptomatic skin lesion right upper chest. PROCEDURES PERFORMED: 1. Open repair, recurrent ventral abdominal incisional hernia with mesh. 2. Excision of skin lesion right upper chest 1 cm in size. SURGEON: Bertram Schneider MD. FIRE EXTINGUISHER SPRINKLER INSPECTOR: Rusty Torres APRN. ANESTHESIA: General endotracheal. ESTIMATED BLOOD LOSS: Minimal. FINDINGS: Recurrent ventral abdominal incisional hernia in the periumbilical region with the fascial defect approximately 2 cm in size. DISPOSITION: The patient tolerated the procedure well. INDICATIONS FOR PROCEDURE: The patient is a 66-year-old female known to us. We had removed several skin lesions before in the past. She noticed a bulge in the supraumbilical region several weeks ago and this was painful and was worse upon ambulation as well as doing physical activities. She has had previous incisions within that region from laparoscopic surgery; however, she also did develop an incisional hernia, which was repaired primarily. However, she has had upon examination, a recurrence of the incisional hernia, which is reducible; however, tender to palpation. DESCRIPTION OF PROCEDURE: The patient was brought to the operating room and laid supine on the table. After adequate IV pain and sedative medications and general endotracheal intubation, the abdomen was prepped and draped in a standard surgical fashion. The infraumbilical rim was then anesthetized using 0.5% Marcaine with epinephrine and a crescent shaped skin incision made using a 15 blade. The subcutaneous tissue was then dissected out using electrocautery and the hernia sac was identified and dissected out using Metzenbaum scissors as well as electrocautery. We proceeded to the fascial base and then opened the hernia sac using Metzenbaum scissors and then excised the entire hernia sac under direct visualization using electrocautery. The fascial defect was approximately 2 cm in size. There is nothing within the hernia sac. A 6.4 cm coated polypropylene mesh was then placed into the defect and sutured transfascially in a concentric manner using 0 Prolene interrupted sutures. The subcutaneous tissue was then reapproximated using 3-0 Vicryl interrupted sutures. Skin was closed using 4-0 Monocryl running subcuticular suture. Wound was then cleaned and covered with Dermabond, followed by 4 x 4 gauze followed by Op-Site followed by abdominal binder. She has a symptomatic skin lesion along the upper chest, right of midline approximately 1 cm in size, which has been around for years; however, has grown larger in size and become exophytic. This lesion was anesthetized using 1% lidocaine with epinephrine and then excised. The lesion was approximately 1 cm in size and excised using a 15 blade. The skin edges were then approximated using 4-0 nylon interrupted sutures. Wound was then cleaned and covered with a Band-Aid. The patient tolerated the procedure well. We will start IV normal pain medication as well as a clear liquid diet. When she is tolerating clears, has good pain control with oral pain medications, and is ambulating well, we will discharge her home. She will be instructed to do no heavy lifting or exertion for the next two weeks as well as to wear the abdominal binder for the next two weeks as well. Job ID: [id number] DocumentID: [id number] Dictated Date: 07/08/2021 15:57:59 Automotive Painter Date: 07/08/2021 18:17:17 Dictated By: BERTRAM SCHNEIDER MD
== END 2021-07-08 18:25 | disposition home or self-care (01) ==
LOC: SDC 12:06
PROVIDERS: ATTEND Surgery
DX: K43.2 Incisional hernia without obstruction or gangrene (principal); L82.1 Other seborrheic keratosis; I10 Essential (primary) hypertension; I25.10 Atherosclerotic heart disease of native coronary artery without angina pectoris; K21.9 Gastro-esophageal reflux disease without esophagitis; M48.00 Spinal stenosis, site unspecified; J82.83 Eosinophilic asthma; H35.719 Central serous chorioretinopathy, unspecified eye; Z98.890 Other specified postprocedural states; Z79.899 Other long term (current) drug therapy; Z79.82 Long term (current) use of aspirin; Z90.89 Acquired absence of other organs
CPT/HCPCS: 11401; 49565; 49568; 87081; C1781

== ENCOUNTER → 2021-08-31 | Outpatient (CLI) | payer MEDICARE ==
[~2021-08-31] MED LIST changes: +toradol PO
--- NOTE | 2021-08-31 10:16 | Diagnostic Imaging Report ---
INDICATION: Postmenopausal. COMPARISON: 08/06/2019 FINDINGS: The bone mineral density of the spine and hips and the femoral necks was measured. The total T score for the spine is 1.9. On the prior exam, the T score is -2.5. The total T score for the left hip is 1.1 and for the right hip 1.0. On the prior exam, the respective T-scores were 0.9 and 1.1. The T score for the left femoral neck is 0.1 and for the right femoral neck 0.8. On the prior study, the T-scores were -0.1 and 0.2. AP Spine L1-L4: [BMD (g/cm2): 1.422] [T-Score: 1.9] [Z-Score: 3.1] [BMD Previous: 1.502] [BMD % Change: -5.3] LT Hip Neck: [BMD (g/cm2): 1.048] [T-Score: 0.1] [Z-Score: 1.4] LT Hip Total: [BMD (g/cm2):1.147] [T-Score:1.1] [Z-Score: 2.1] [BMD Previous: 1.117] [BMD % Change: 2.7] RT Hip Neck: [BMD (g/cm2):1.144] [T-Score:0.8] [Z-Score:2.1] RT Hip Total: [BMD (g/cm2):1.139] [T-score:1.0] [Z-Score:2.1] [BMD Previous:1.143] [BMD % Change:-0.3] *Indicates significant change from prior examination based on 95% confidence level. World Health Organization criteria for BMD interpretation classify patients as Normal (T-score at or above -1.0), Osteopenic (T-score between -1.0 and -2.5) or Osteoporotic (T-score at or below -2.5). LIMITATIONS AND MODIFICATION: None. FRACTURE RISK (FRAX SCORE): The ten year probability of (%): Major Osteoporotic Fracture: [NA] Hip Fracture: [NA] IMPRESSION: 1. When compared to the prior study, there has been no significant change. The bone mineral density of the spine and hips and the femoral necks remains within normal limits. 2. 3. See below National Osteoporosis Foundation guidelines on when to potentially initiate pharmacologic therapy. Based on the National Osteoporosis Foundation Guidelines, pharmacologic treatment should be initiated in any of the following, unless clinical conditions suggest otherwise: * Any patient with prior fragility fracture of the hip or vertebrae. A spine fracture indicates 5X risk for subsequent spine fracture and 2X risk for subsequent hip fracture. * Osteoporosis (T-score <-2.5). * Postmenopausal women and men age 50 and older with low bone mass/osteopenia (T-score between -1.0 and -2.5) by DXA and 10-year major osteoporotic fracture greater than 20% or a 10-year probability of hip fracture greater than 3%. These fracture risks are supplied above in the FRAX score, if applicable. * Clinician judgement and/or patient preferences may indicate treatment for people with 10-year fracture probabilities above or below these levels. Dictated by: Dictated on workstation # [id number]
--- NOTE | 2021-08-31 12:16 | Diagnostic Imaging Report ---
Indication: Routine screening. Comparison is made with prior mammogram from 05/02/2018 and 06/23/2016. 2-D and 3-D bilateral screening mammography was performed with CAD. Scattered fibroglandular densities are identified bilaterally. The parenchymal pattern is stable. No mass or malignant-appearing microcalcifications are seen. There are occasional benign calcifications. Axillae are unremarkable. IMPRESSION: BI-RADS Category 2 No mammographic features suspicious for malignancy are identified. ACR BI-RADS Category 2: Benign findings. Result letter will be mailed to the patient. Note: At least 10% of breast cancer is not imaged by mammography. Dictated by: Dictated on workstation # [id number]
== END ==
LOC: RAD 09:30
PROVIDERS: ATTEND Family Medicine
DX: Z12.31 Encounter for screening mammogram for malignant neoplasm of breast (principal); Z13.820 Encounter for screening for osteoporosis; Z78.0 Asymptomatic menopausal state
CPT/HCPCS: 77063; 77067; 77080

== ENCOUNTER → 2022-10-28 | Outpatient (CLI) | payer MEDICARE ==
[~2022-10-28] MED LIST changes: -MOME13HF IH; +MOME13HF11 IH; +POTA-177 PO; -POTA10TA36 PO
--- NOTE | 2022-10-28 15:38 | Diagnostic Imaging Report ---
Indication: Routine screening. Comparison is made with prior mammograms 08/31/2021 and 05/02/2018. 2-D and 3-D bilateral screening mammography was performed with CAD. Scattered fibroglandular densities are identified bilaterally. The parenchymal pattern is stable. No mass or malignant-appearing microcalcifications are seen. Axillae are unremarkable. IMPRESSION: BI-RADS Category 1 No mammographic features suspicious for malignancy are identified. ACR BI-RADS Category 1: Negative. Result letter will be mailed to the patient. Note: At least 10% of breast cancer is not imaged by mammography. Dictated by: Dictated on workstation # [id number]
== END ==
LOC: RAD 09:15
PROVIDERS: ATTEND Family Medicine
DX: Z12.31 Encounter for screening mammogram for malignant neoplasm of breast (principal)
CPT/HCPCS: 77063; 77067